=== PATIENT | female | born 2000 | race Caucasian/White ===

== ENCOUNTER 2024-02-24 09:33 | Outpatient (OUT) | payer BC, SELFPAY ==
--- NOTE | 2024-02-24 | US_ITS ---
[place] [id number] Patient Name: EMMY DALE MRN: [id number] date: 2000 Sex: F Assigned Patient Location: [facility] Current Patient Location: [facility] Accession/Order Number: [id number] Exam Date: 02/24/2024 09:38 Report Date: 02/24/2024 12:08 At the request of: ANN GONGORA Procedure: US OB transvaginal EXAMINATION: US OB transvaginal HISTORY: MISSED MENSES COMPARISON: No relevant comparison available. FINDINGS: Transvaginal images Gestational sac: 2.7 cm, 7 weeks 4 days CRL: 1.82 cm, 8 weeks 2 days Yolk sac: 3.5 mm Heart rate: 181 bpm Cervix: Closed, 4.1 cm The uterus is normal, anteverted, anteflexed The right ovary is not visualized Left ovary is normal measuring 3.1 x 1.5 x 2.8 cm Clinical age: 9 weeks 0 days Clinical [facility]: 09/28/2024 Ultrasound age: 8 weeks 2 days Ultrasound [facility]: 10/03/2024 US/US OB transvaginal IMPRESSION: Viable mcguire intrauterine gestation measuring 8 weeks 2 days Electronically authenticated by: CHRISTINE WALKER Date: 02/24/2024 12:08
== END 2024-02-24 09:34 | disposition home or self-care (01) ==
LOC: NOMS 09:34
PROVIDERS: PCP Family Medicine; Visit Provider Obstetrics & Gynecology
DX: Z34.91 Encounter for supervision of normal pregnancy, unspecified, first trimester (principal); Z3A.08 8 weeks gestation of pregnancy; N92.6 Irregular menstruation, unspecified
CPT/HCPCS: 76817

== ENCOUNTER 2024-03-08 14:13 | Outpatient (OUT) | payer OTHER, SELFPAY ==
[2024-03-08 15:09] LABS: Basophils Absolute Auto 0.1 10^3/uL (0.0-0.1); Basophils Percent Auto 0.6 % (0.2-2.0); Eosinophils Absolute Auto 0.2 10^3/uL (0.0-0.7); Eosinophils Percent Auto 1.8 % (0.9-7.0); Hematocrit 38.4 % (36.0-48.0); Immature Granulocytes Abs Auto 0.02 10^3/uL (0.00-0.03); Immature Granulocytes Pct Auto 0.2 % (0.0-0.5); Lymphocytes Absolute Auto 2.2 10^3/uL (1.2-3.8); Mean Corpuscular HGB Conc 33.9 g/dL (29.9-35.2); Mean Corpuscular Hemoglobin 29.9 pg (26.7-34.0); Mean Corpuscular Volume 88.3 fL (81.0-99.0); Mean Platelet Volume 9.7 fL (9.5-13.5); Monocytes Absolute Auto 0.8 10^3/uL (0.3-0.8); Monocytes Percent Auto 9.3 % (1.7-12.0); Neutrophils Percent Auto 61.1 % (43.0-75.0); Platelet Count 325 10^3/uL (150-450); Red Blood Count 4.35 10^6/uL (4.20-5.40); White Blood Count 8.2 10^3/uL (4.0-11.0)
[2024-03-08 15:30] LABS: Estimated Average Glucose 91 mg/dL; Glycohemoglobin A1C 4.8 % (4.5-6.2)
[2024-03-08 16:02] LABS: BOX Test Sent Out Y
[2024-03-08 16:20] LABS: Thyroid Stimulating Hormone 3.424 uIU/mL (0.358-3.740)
[2024-03-09 05:07] LABS: HCV Ab Non Reactive (Non Reactive); HIV Ab/p24 Ag Screen Non Reactive (Non Reactive); Rubella Antibodies, IgG 1.36 index (Immune >0.99)
[2024-03-09 06:09] LABS: HBsAg Screen Negative (Negative)
[2024-03-09 13:08] LABS: Rapid Plasma Reagin, Quant Non Reactive titer (NonRea<1:1)
== END 2024-03-08 14:14 | disposition home or self-care (01) ==
PROVIDERS: PCP Family Medicine; Visit Provider Obstetrics & Gynecology
DX: E06.3 Autoimmune thyroiditis (principal); N92.6 Irregular menstruation, unspecified; Z36.0 Encounter for antenatal screening for chromosomal anomalies
CPT/HCPCS: 36415; 83036; 84443; 85025; 86592; 86762; 86803; 86850; 86900; 86901; 87086; 87340; 87389

== ENCOUNTER 2024-04-09 21:25 | Outpatient (REF) | payer OTHER, SELFPAY ==
--- OUTSIDE RECORDS SUMMARY | 2024-04-09 21:30 | XMS_ITS | CCD ---
Author Organization [facility] Care Team Providers Care Emergency Department Technician Name Role Phone Lyndon Dalal Primary Care Unavailable Juancarlos Maria Attending Unavailable Juancarlos Maria Admitting Unavailable Lyndon Dalal Unavailable Lyndon Dalal CNP Unavailable [phone] Lyndon Dalal CNP Primary Care Provider ANKIT Dalal Primary Care Provider ANKIT Dalal Attending Provider [phone] LYNDON DALAL Primary Care Unavailable MARTINA RODRIGUEZ Referring Unavailable LYNDON DALAL Primary Care Unavailable MARTINA RODRIGUEZ Referring Unavailable MARTINA RODRIGUEZ Referring Unavailable LYNDON DALAL Primary Care Unavailable MARTINA RODRIGUEZ Attending Unavailable Lyndon Dalal Attending Unavailable Lyndon Dalal Admitting Unavailable Lyndon Dalal Primary Care Unavailable Lyndon Dalal Attending Unavailable Lyndon Dalal Admitting Unavailable Lyndon Dalal Primary Care Unavailable Shashank GONGORAy R Admitting Unavailable Shashank GONGORAy R Attending Unavailable MELISSA DALALA Admitting Unavailable LYNDON DALAL Attending Unavailable Bill Kat Admitting Unavailable Bill Kat Attending Unavailable Benjamin BAKER Admitting Unavailable NONE, XXXX Referring Unavailable Benjamin BAKER Attending Unavailable Benjamin BAKER Admitting Unavailable NONE, XXXX Referring Unavailable Benjamin BAKER Attending Unavailable Benjamin BAKER Referring Unavailable Benjamin BAKER Admitting Unavailable Benjamin BAKER Attending Unavailable Benjamin BAKER Referring Unavailable Benjamin BAKER Admitting Unavailable Benjamin BAKER Consulting Unavailable Benjamin BAKER Attending Unavailable Benjamin BAKER Consulting Unavailable Benjamin BAKER Consulting Unavailable SOBEIDA THOMPSON Attending Unavailable SOBEIDA THOMPSON Admitting Unavailable SOBEIDA THOMPSON Attending Unavailable SOBEIDA THOMPSON Referring Unavailable LYNDON DALAL Admitting Unavailable LYNDON DALAL Attending Unavailable DAMI GONGORA Attending Unavailable DAMI GONGORA Attending Unavailable Allergies Allergy Classification Reported Allergen(s) Allergy Type Date of Onset Reaction(s) Facility (4 sources) Sulfonamides (Antibiotic); Translations: [SULFA (SULFONAMIDE ANTIBIOTICS)] Drug allergy (disorder) 5 [facility] Repository (2 sources) Sulfonamide Drug allergy [facility] Other (14 sources) Substance with sulfonamide structure and antibacterial mechanism of action (substance) Drug allergy 5 [facility] (1 source) Sulfonamides (Antibiotic); Translations: [sulfa drugs] Propensity to adverse reactions (disorder) [facility] Repository Medications Current Medications Medication Drug Class(es) Dates Sig (Normalized) Sig (Original) cyclobenzaprine hydrochloride 5 mg oral tablet (6 sources) Muscle Relaxant Start: 09-15-2023 take 1 tablet by mouth every twenty-four hours Cyclobenzaprine HCl 5 MG 1 tablet at bedtime as needed Orally Once a day for 14 days Aug, Active Lecithin (2 sources) Lecithin Sunflow er Lecithin, one capsule daily Active nitrofurantoin, macrocrystals 25 mg / nitrofurantoin, monohydrate 75 mg oral capsule (2 sources) Nitrofuran Antibacterial Start: 05-25-2023 take 1 capsule by mouth every twelve hours Nitrofurantoin Monohyd Macro 100 MG 1 capsule with food Orally every 12 hrs for 7 days Apr, Active predniSONE 20 mg oral tablet (4 sources) Start: 09-27-2023 take 1 tablet by mouth once daily predniSONE 20 MG 1 tab Orally Once a day for 5 days Aug, Active Vitamins (2 sources) Vitamin s OTC, daily Active tamsulosin hydrochloride 0.4 mg oral capsule (2 sources) alpha-Adrenergic Mira Start: 05-25-2023 take 1 capsule by mouth every twenty-four hours Tamsulosin HCl 0.4 MG 1 capsule Orally Once a day for 14 days Apr, Active tiZANidine 2 mg oral tablet (4 sources) Central alpha-2 Adrenergic Agonist Start: 09-27-2023 take 1 tablet by mouth twice daily as needed tiZANidine HCl 2 MG 1 tablet as needed Orally BID PRN for 14 days Aug, Active Completed/Discontinued Medications Medication Drug Class(es) Dates Sig (Normalized) Sig (Original) biotin 10 mg oral tablet (16 sources) take 1 tablet by fredi th every twenty-four hours Biotin 15918 MCG 1 tablet Orally Once a day OTC Not-Taking/PRN take 1 tablet by fredi th every twenty-four hours Biotin 68685 MCG 1 tablet Orally Once a day OTC Not-Taking take 1 tablet by mouth once [place] Biotin 11761 MCG 1 tablet Orally Once a day OTC Not-Taking BIOTIN ORAL Take by mouth q 24 HR. 0 Active take 1 tablet by mouth once [place] Biotin 98239 MCG 1 tablet Orally Once a day OTC Active Comment on above: Take by mouth q 24 H R. Calcium & Magnesium Carbonates (14 sources) Calcium & Magnes ium Carbonates 1000MG and 500MG - one capsule daily, OTC Not-Taking/PRN Calcium & Magnes ium Carbonates 1000MG and 500MG - one capsule daily, OTC Not-Taking Calcium & Magnes ium Carbonates 1000MG and 500MG - one capsule daily, OTC Active calcium carb/magnesium carb (CALCIUM & MAGNESIUM CARBONATES ORAL) (2 sources) calcium carb/mag nesium carb (CALCIUM & MAGNESIUM CARBONATES ORAL) Calcium & Magnesium Carbonates 1000MG and 500MG - one capsule daily, OTC Active 0 Active Comment on above: Calcium & Magnesium Carbonates 1000MG and 500MG - one capsule daily, OTC Active drospirenone / Ethinyl Estradiol (1 source) Progestin, Estrogen Start: 10-21-20 End: 03-08-20 23 take 1 tablet by mouth once daily Drospirenone-Ethinyl Estradiol (CATY, 28,) 3-0.03 mg per tablet Indications: Dysmenorrhea Take 1 tablet by mouth once daily. 3 Package 4 10/21/2016 03/08/2023 Discontinued Comment on above: Take 1 tablet by fredi th once daily. Iodine (14 sources) Iodine 225MCG ca psule daily, OTC Not-Taking/PRN Iodine 225MCG ca psule daily, OTC Not-Taking take 1 capsule by mouth once ana maría ly IODINE ORAL Iodine 225MCG capsule daily, OTC Active 0 Active Iodine 225MCG ca psule daily, OTC Active Comment on above: Iodine 225MCG capsul e daily, OTC Active Lactobacillus acidophilus (2 sources) Lactobacillus acidophilus (PROBIOTIC ORAL) Probiotic OTC, daily Active 0 Active Comment on above: Probiotic OTC, daily Active lactobacillus rhamnosus gg [id number] unt oral capsule (1 source) Start: 5 End: 3 take 1 capsule by mouth once daily lactobacillus rhamnosus (CULTURELLE) 10 billion cell capsule Indications: Abdominal pain Take 1 capsule by mouth once daily. 30 capsule 2 04/30/2015 03/08/2023 Discontinued Comment on above: Take 1 capsule by mo [facility] once daily. levothyroxine sodium 0.025 mg oral tablet (12 sources) l-Thyroxine Start: 3 take 1 tablet by mouth once daily levothyroxine (SYNTHROID) 25 mcg tablet Take 1 tablet by mouth once daily. 90 tablet 0 06/28/2023 Active take 1 tablet by fredi th once daily in the morning Synthroid 25 MCG 1 tablet in the morning on an empty stomach Orally Once a day for 90 days Active Comment on above: Take 1 tablet by fredi th once daily. Moringa (14 sources) Moringa 6000MG, one capsule, daily, OTC Not-Taking/PRN Moringa 6000MG, one capsule, daily, OTC Not-Taking Moringa 6000MG, one capsule, daily, OTC Active MULTI-VITAMIN ORAL (2 sources) MULTI-VITAMIN OR AL Multivitamin OTC, daily Active 0 Active Comment on above: Multivitamin OTC, da carlton Active Multivitamin preparation (12 sources) Multivitamin OTC , daily Not-Taking/PRN Multivitamin OTC , daily Not-Taking Multivitamin OTC , daily Active omeprazole 20 mg delayed release oral capsule (1 source) Proton Pump Inhibitor Start: 10-21-2016 End: 03-08-2023 take 1 capsule by mouth once daily omeprazole (PRILOSEC) 20 mg capsule Indications: Gastroesophageal reflux disease, esophagitis presence not specified Take 1 capsule by mouth once daily. 90 capsule 1 10/21/2016 03/08/2023 Discontinued Comment on above: Take 1 capsule [address] [facility] once daily. pantoprazole 20 mg delayed release oral tablet (9 sources) Proton Pump Inhibitor Start: 07-12-2023 take 1 tablet by mouth every twenty-four hours Pantoprazole Sodium 20 MG 1 tablet Orally Once a day for 30 days Jul, Not-Taking/PRN vit no.124/iron/folic ( VITAMIN ORAL) (2 sources) vit no.124/iron/folic ( VITAMIN ORAL) Vitamins OTC, daily Active 0 Active Comment on above: Vitamins OT C, daily Active Probiotic (14 sources) Probiotic OTC, d aily Not-Taking/PRN Probiotic OTC, d aily Not-Taking Probiotic OTC, d aily Active Thyroid (12 sources) Thyroid SOLARAY Bladderwrack Seaweed, Healthy Thyroid Balance and Weight Management Support daily Not-Taking/PRN Thyroid SOLARAY Bladderwrack Seaweed, Healthy Thyroid Balance and Weight Management Support daily Not-Taking Thyroid SOLARAY Bladderwrack Seaweed, Healthy Thyroid Balance and Weight Management Support daily Active THYROID ORAL (1 source) THYROID ORAL Thy roid SOLARAY Bladderwrack Seaweed, Healthy Thyroid Balance and Weight Management Support daily Active 0 Active Comment on above: Thyroid SOLARAY Blad derwrack Seaweed, Healthy Thyroid Balance and Weight Management Support daily Active Problems Active Problems Problem Classification Problem Date Documented Date Episodic/Chronic Abdominal pain (14 sources) Pain in pelvis; Translations: [Pelvic and perineal pain] Episodic Asthma (20 sources) Exercise-induced asthma; Translations: [Exercise induced bronchospasm] Chronic Cardiac dysrhythmias (14 sources) Tachycardia; Translations: [Tachycardia, unspecified] Episodic Esophageal disorders (11 sources) Gastroesophageal reflux disease; Translations: [Gastro-esophageal reflux disease without esophagitis] Onset: 09-27-2014 09-27-2014 Chronic Gastritis and duodenitis (1 source) Acute gastritis with bleeding Episodic Genitourinary symptoms and ill-defined conditions (15 sources) Dysuria; Translations: [Dysuria] Episodic Headache; including migraine (2 sources) Episodic tension-type headache; Translations: [Episodic tension-type headache, not intractable] Onset: 08-07-2015 08-07-2015 Chronic Malaise and fatigue (15 sources) Fatigue; Translations: [Chronic fatigue, unspecified] Chronic Malaise and fatigue (14 sources) Fatigue; Translations: [Other fatigue] Episodic Menstrual disorders (2 sources) Dysmenorrhea; Translations: [Dysmenorrhea, unspecified] Onset: 09-27-2014 09-27-2014 Chronic Nonspecific chest pain (14 sources) Chest pain; Translations: [Chest pain, unspecified] Episodic Other bone disease and musculoskeletal deformities (5 sources) Idiopathic scoliosis AND/OR kyphoscoliosis; Translations: [Other idiopathic scoliosis, thoracic region] Chronic Other circulatory disease (11 sources) Low blood pressure; Translations: [Hypotension, unspecified] Episodic Other complications of ; puerperium affecting management of mother (14 sources) Obstetric spinal and epidural anesthesia-induced headache; Translations: [Spinal and epidural anesthesia-induced headache during the puerperium] Episodic Other complications of ; puerperium affecting management of mother (1 source) Spinal and epidural anesthesia-induced headache during the puerperium Episodic Other inflammatory condition of skin (14 sources) Pityriasis rosea; Translations: [Pityriasis rosea] Chronic Other non-traumatic joint disorders (1 source) Pain in unspecified hip Episodic Other nutritional; endocrine; and metabolic disorders (1 source) Abnormal weight loss Episodic Other and delivery including normal (1 source) Encounter for care and examination of lactating mother Episodic Spondylosis; intervertebral disc disorders; other back problems (1 source) Pain in thoracic spine Episodic Sprains and strains (1 source) Strain of muscle, fascia and tendon at neck level, initial encounter Episodic Thyroid disorders (20 sources) Goiter; Translations: [Nontoxic goiter, unspecified] Chronic Unclassified (1 source) Pain in right shoulder; Translations: [Pain in right shoulder] Onset: 10-25-2023 Past or Other Problems Problem Classification Problem Date Documented Date Episodic/Chronic Blindness and vision defects (2 sources) Wears glasses; Translations: [Presence of spectacles and contact lenses] Onset: 08-28-2014 08-28-2014 Episodic Conditions associated with dizziness or vertigo (15 sources) Dizziness and giddiness; Translations: [Dizziness] Onset: 02-21-2023 Episodic Contraceptive and procreative management (2 sources) Patient encounter status; Translations: [Encounter for initial prescription of contraceptive pills] Onset: 09-27-2014 09-27-2014 Episodic Headache; including migraine (2 sources) Headache; Translations: [Headache] Onset: 09-27-2014 09-27-2014 Episodic Residual codes; unclassified (2 sources) High risk sexual behavior; Translations: [High risk heterosexual behavior] Onset: 09-27-2014 09-27-2014 Episodic Syncope (2 sources) Near syncope; Translations: [Syncope and collapse] Onset: 09-27-2014 09-27-2014 Episodic Viral infection (3 sources) Viral infection, unspecified; Translations: [Verruca vulgaris] Onset: 09-27-2014 Episodic Results Test Name Value Interpretation Reference Range Facility Consent for Treatmenton Consent for Treatment [id number] F Normal [facility] Physician Orderon 04-04-2024 Physician Order [id number]#[id number] FF Normal [facility] TSHon 04-04-2024 TSH Qn 2.73 m[IU]/L Normal 0.34-5.60 [facility] Comment on above: Performed By: #### 2 [id number] #### [facility] [address] [place] [address] XR Spine Cervical 4 or 5 Vie wson 09-16-2023 XR Spine Cervical 4 or 5 Views Exam Date/Time: 09/15/2023 14:47 EST Reason for Exam: [id number] Report IMPRESSION: NEGATIVE CERVICAL SPINE. CLINICAL HISTORY: S16.1XXA. Neck and back pain. COMMENT: 5 views. The cervical spine appears normal without evidence of fracture or subluxation. Ordering Provider: LYNDON DALAL FINAL REPORT Dictated: 09/16/2023 8:02 am Maximo Kurtz M.D. Signed (Electronic Signature): 09/16/2023 8:02 am Signed by: Maximo Kurtz M.D. Transcribed by: MORENO Technologist: JOANNE Technical Comments Radiation Dose: Ka,r in mGy = . DAP = . Normal [facility] XR Spine Thoracic 3 Viewson 09-16-2023 XR Spine Thoracic 3 Views Exam Date/Time: 09/15/2023 14:47 EST Reason for Exam: M54.6 Report IMPRESSION: MILD SCOLIOTIC CURVATURES. CLINICAL HISTORY: M54.6. Neck and back pain. COMMENT: 3 views. There are mild scoliotic curvatures of the thoracic spine, convex to the left superiorly, convex to the right in the midportion, and convex to the left in the lower portion. The thoracic spine is otherwise normal in appearance. The vertebral bodies are maintained in height. The pedicles are intact. No fracture is noted.. Ordering Provider: LYNDON DALAL FINAL REPORT Dictated: 09/16/2023 8:01 am Maximo Kurtz M.D. Signed (Electronic Signature): 09/16/2023 8:01 am Signed by: Maximo Kurtz M.D. Transcribed by: MORENO Technologist: JOANNE Technical Comments Radiation Dose: Ka,r in mGy = . DAP = . Normal [facility] Physician Orderon 09-15-2023 Physician Order [id number] IFF Normal [facility] T4 Free SerPl-mCncon 023 Free T4 [Mass/Vol] 1.2 ng/dL Normal 0.9-1.7 [facility] Comment on above: Order Comment: Rozina florez Type: BLOOD SPECIMEN Ordering Facility: [facility] Address: [address] [place] [address] Performed By: #### 3 024-7, 3016-3 #### [facility] CLIA [id number] [address] [place] [address] [place] TSH SerPl-aCncon 08-18-2023 TSH Qn 2.280 m[IU]/L Normal 0.270-4.200 [facility] Comment on above: Order Comment: Rozina florez Type: BLOOD SPECIMEN Ordering Facility: [facility] Address: [address] [place] [address] Result Comment: If t he patient is , TSH reference range varies by gestational period: First Trimester (weeks 9-12): 0.180-2.990 mIU/L Second Trimester: 0.110-3.980 mIU/L Third Trimester: 0.480-4.710 mIU/L Noe Ramon et al. A Practical Approach for the Verifications and Determination of Site- and Trimester-Specific Reference Intervals for Thyroid Function tests in . Thyroid, 2019:29:3:412-420. Gregor Banegas, et al. 2017 Guidelines of the [place] [employer] for the Diagnosis and Management of Thyroid Disease during and the . Thyroid, 2017:27:3:315-389. Performed By: #### 3 024-7, 3016-3 #### [facility] CLIA [id number] [address] [place] [address] [place] Consent for Treatmenton Consent for Treatment [id number]: 127 [facility] US Renalon 07-08-2023 US Renal Exam Date/Time: 07/08/2023 09:48 EDT Reason for Exam: Kidney Stones;Other (please specify) Report IMPRESSION: NEGATIVE ULTRASOUND OF THE KIDNEYS. CLINICAL HISTORY: Kidney Stones. COMPARISON: 07/30/2021. COMMENT: Sonogram of both kidneys was done. The right kidney measures approximately 10.1 cm in length, with renal cortical thickness of approximately 1.2 cm. The left kidney measures approximately 10.2 cm in length, with renal cortical thickness of approximately 2.1 cm. Both kidneys have a normal sonographic appearance. No renal masses nor cysts are seen. There is no hydronephrosis. There is symmetrical color flow into the both kidneys. Ordering Provider: , FINAL REPORT Dictated: 07/08/2023 3:45 pm Héctor Mendoza M.D. Signed (Electronic Signature): 07/08/2023 3:45 pm Signed by: Héctor Mendoza M.D. Transcribed by: MORENO Technologist: EMILY Chung [facility] XR Abdomen 1 Viewon 07-08-20 23 XR Abdomen 1 View Exam Date/Time: 07/08/2023 09:37 EDT Reason for Exam: N20.0;Kidney stone Report IMPRESSION: NO OBVIOUS RENAL OR URETERAL CALCULUS. CLINICAL HISTORY: Kidney stone, N20.0 COMPARISON: 05/22/2016. FINDINGS: AP supine abdomen shows no obvious calcific density in either kidney or along the course of both ureters. Gas pattern of bowel is unremarkable. Both kidneys are partially obscured by overlying bowel gas. Ordering Provider: , FINAL REPORT Dictated: 07/08/2023 3:35 pm Héctor Mendoza M.D. Signed (Electronic Signature): 07/08/2023 3:35 pm Signed by: Héctor Mendoza M.D. Transcribed by: MORENO Technologist: JOANNE Technical Comments Radiation Dose: Ka,r in mGy = . DAP = . Normal [facility] Ambulatory Visit Summaryon 0 06-21-2023 Ambulatory Visit Summary EMMY DALE :2000 Visit Date:06/21/2023 Ambulatory Visit Instructions Your Diagnosis Urinary crystals Recurrent UTI Urethral stricture Gross hematuria Tests Performed Urnls Dip Stick Auto w/o Microscopy POC 06177 Your Care Team Attending Physician - SOBEIDA THOMPSON PA-C Primary Care Physician - LYNDON DALAL CNP This Is Your Medications List Contact prescribing physician if questions or concerns busPIRone (busPIRone 10 mg Tab) levothyroxine (Synthroid 25 mcg(0.025 mg) Tab) Procedures Performed Cystourethroscopy with dilation of urethral stricture (07/2021), Extraction of wisdom tooth (2015), Colonoscopy (2012), EGD (esophagogastroduodenosc opy) gastric outlet reduction (2012). Discharge Vitals Heart Rate (Peripheral) 74 Blood Pressure 116/82 Height 160 cm Height 63 in Weight 78 kg Weight 171.6 lb BMI 30.47 What to do next You Need to Schedule the Following Appointments Follow Up with SOBEIDA THOMPSON PA-C, URL When: Comments: will call pt. Where: [address] [place] [address] You Need to Complete the Following US Renal, *Est. 06/21/23 due within 1 months, Routine, Order for future visit, Transport Mode: Ambulatory, Reason: Other (please specify), Reason: Kidney Stones, No, Kidney stones, pp_set_radiology_subspec ialtlisa, [facility] [place] XR Abdomen 1 View, *Est. 06/21/23 due within 1 months, Routine, Order for future visit, Transport Mode: Ambulatory, Reason: Kidney stone, No, Kidney stones, pp_set_radiology_subspec ialty, [facility] [place] Medications What How Much When Instructions Unchanged busPIRone (busPIRone 10 mg Tab) 2 times a day Contact prescribing physician if questions or concerns Unchanged levothyroxine (Synthroid 25 mcg(0.025 mg) Tab) Every day Contact prescribing physician if questions or concerns Test Results Urnls Dip Stick Auto w/o Microscopy POC 99244 (06/21/2023) Bilirubin Urine Dipstick - Negative Blood Urine Dipstick - Negative Glucose Urine Dipstick - Negative Ketones Urine Dipstick - Negative Leukocytes Urine Dipstick - Negative Nitrite Urine Dipstick - Negative Protein Urine Dipstick - Negative Specific [place] Urine Dipstick - 1.010 Urine Appearance Urine Dipstick - Clear Urine Color Urine Dipstick - Yellow Urobilinogen Urine Dipstick - Normal 0.2-1 EU/dl pH Urine Dipstick - 6 Allergies sulfa drugs (Rash) Problems Ongoing - Any problem that you are currently receiving treatment for. Dysuria Gross hematuria Vikki's disease Kidney stones Labyrinthine dysfunction Pityriasis rosea Recurrent UTI Tachycardia Thyroid nodule Thyromegaly Urethral stricture Urinary crystals Historical - Any problem that you are no longer receiving treatment for. Bilateral carpal tunnel syndrome GERD - Gastro-esophageal reflux disease H/O: migraine Education Materials Dietary Guidelines to Help Prevent Kidney Stones Kidney stones are deposits of minerals and salts that form inside your kidneys. Your risk of developing kidney stones may be greater depending on your diet, your lifestyle, the medicines you take, and whether you have certain medical conditions. Most people can lower their chances of developing kidney stones by following the instructions below. Your dietitian may give you more specific instructions depending on your overall health and the type of kidney stones you tend to develop. What are tips for following this plan? Reading food labels ? Choose foods with no salt added or low-salt labels. Limit your salt (sodium) intake to less than 1,500 mg a day. ? Choose foods with calcium for each meal and snack. Try to eat about 300 mg of calcium at each meal. Foods that contain 200?500 mg of calcium a serving include: ? 8 oz (237 mL) of milk, eemjvxh-szkrgntttyfz-akz ry milk, and calcium-fortifiedfruit juice. Calcium-fortified means that calcium has been added to these drinks. ? 8 oz (237 mL) of kefir, yogurt, and soy yogurt. ? 4 oz (114 g) of tofu. ? 1 oz (28 g) of cheese. ? 1 cup (150 g) of dried figs. ? 1 cup (91 g) of cooked broccoli. ? One 3 oz (85 g) can of sardines or mackerel. Most people need 1,000?1,500 mg of calcium a day. Talk to your dietitian about how much calcium is recommended for you. Shopping ? Buy plenty of fresh fruits and vegetables. Most people do not need to avoid fruits and vegetables, even if these foods contain nutrients that may contribute to kidney stones. ? When shopping for convenience foods, choose: ? Whole pieces of fruit. ? Pre-made salads with dressing on the side. ? Low-fat fruit and yogurt smoothies. ? Avoid buying frozen meals or prepared deli foods. These can be high in sodium. ? Look for foods with live cultures, such as yogurt and kefir. ? Choose high-fiber grains, such as whole-wheat breads, oat bran, and wheat cereals. (more content not included)... Normal [facility] Patient Educationon 06-21-20 23 Patient Education Nephrology Dietary Guidelines to Help Prevent Kidney Stones Kidney stones are deposits of minerals and salts that form inside your kidneys. Your risk of developing kidney stones may be greater depending on your diet, your lifestyle, the medicines you take, and whether you have certain medical conditions. Most people can lower their chances of developing kidney stones by following the instructions below. Your dietitian may give you more specific instructions depending on your overall health and the type of kidney stones you tend to develop. What are tips for following this plan? Reading food labels ? Choose foods with no salt added or low-salt labels. Limit your salt (sodium) intake to less than 1,500 mg a day. ? Choose foods with calcium for each meal and snack. Try to eat about 300 mg of calcium at each meal. Foods that contain 200?500 mg of calcium a serving include: ? 8 oz (237 mL) of milk, nkolevi-yjfddnyaocxp-nbh ry milk, and calcium-fortifiedfruit juice. Calcium-fortified means that calcium has been added to these drinks. ? 8 oz (237 mL) of kefir, yogurt, and soy yogurt. ? 4 oz (114 g) of tofu. ? 1 oz (28 g) of cheese. ? 1 cup (150 g) of dried figs. ? 1 cup (91 g) of cooked broccoli. ? One 3 oz (85 g) can of sardines or mackerel. Most people need 1,000?1,500 mg of calcium a day. Talk to your dietitian about how much calcium is recommended for you. Shopping ? Buy plenty of fresh fruits and vegetables. Most people do not need to avoid fruits and vegetables, even if these foods contain nutrients that may contribute to kidney stones. ? When shopping for convenience foods, choose: ? Whole pieces of fruit. ? Pre-made salads with dressing on the side. ? Low-fat fruit and yogurt smoothies. ? Avoid buying frozen meals or prepared deli foods. These can be high in sodium. ? Look for foods with live cultures, such as yogurt and kefir. ? Choose high-fiber grains, such as whole-wheat breads, oat bran, and wheat cereals. Cooking ? Do not add salt to food when cooking. Place a salt shaker on the table and allow each person to add his or her own salt to taste. ? Use vegetable protein, such as beans, textured vegetable protein (TVP), or tofu, instead of meat in pasta, casseroles, and soups. Meal planning ? Eat less salt, if told by your dietitian. To do this: ? Avoid eating processed or pre-made food. ? Avoid eating fast food. ? Eat less animal protein, including cheese, meat, poultry, or fish, if told by your dietitian. To do this: ? Limit the number of times you have meat, poultry, fish, or cheese each week. Eat a diet free of meat at least 2 days a week. ? Eat only one serving each day of meat, poultry, fish, or seafood. ? When you prepare animal protein, cut pieces into small portion sizes. For most meat and fish, one serving is about the size of the palm of your hand. ? Eat at least five servings of fresh fruits and vegetables each day. To do this: ? Keep fruits and vegetables on hand for snacks. ? Eat one piece of fruit or a handful of berries with breakfast. ? Have a salad and fruit at lunch. ? Have two kinds of vegetables at dinner. ? Limit foods that are high in a substance called oxalate. These include: ? Spinach (cooked), rhubarb, beets, sweet potatoes, and [place] chard. ? Peanuts. ? Potato chips, arabic fries, and baked potatoes with skin on. ? Nuts and nut products. ? Chocolate. ? If you regularly take a diuretic medicine, make sure to eat at least 1 or 2 servings of fruits or vegetables that are high in potassium each day. These include: ? Avocado. ? Banana. ? [place], prune, carrot, or tomato juice. ? Baked potato. ? Cabbage. ? Beans and split peas. Lifestyle ? Drink enough fluid to keep your urine pale yellow. This is the most important thing you can do. Spread your fluid intake throughout the day. ? If you drink alcohol: ? Limit how much you use to: ? 0?1 drink a day for women who are not . ? 0?2 drinks a day for men. ? Be aware of how much alcohol is in your drink. In the [place] one drink equals one 12 oz bottle of beer (355 mL), one 5 oz glass of wine (148 mL), or one 1? oz glass of hard liquor (44 mL). ? Lose weight if told by your health care provider. Work with your dietitian to find an eating plan and weight loss strategies that work best for you. General information ? Talk to your health care provider and dietitian about taking daily supplements. You may be told the following depending on your health and the cause of your kidney stones: ? Not to take supplements with vitamin C. ? To take a calcium supplement. ? To take a daily probiotic supplement. ? To take other supplements such as magnesium, fish oil, or vitamin B6. ? Take sibv-xmt-bgeiigi and prescription medicines only as told by your health care provider. These include supplements. What foods should I limit? Limit your in (more content not included)... Normal [facility] Urology Office/Clinic Noteon 06-21-2023 Urology Office/Clinic Note Chief Complaint follow up HPI Staff Pt is here today F/U due to Urethral stricture S/P Cysto/UD 08/06/21, Reoccurring UTI, Gross Hementaria, Renal US 07/30/21 Last visit was 09/16/21 Found out she had kidney stones with Dr. Cloud (PCP), crystals was also found in her U/A last month she doesn't know if she passed it Macrobid was prescribed from PCP and Flomax for UTI for 14 days 3 wks ago. This did work well Dysuria: _denies Incomplete bladder emptying: denies Hematuria: denies, blood on U/A microscopic ( 3 wks ago) Frequency: _5-6 times a day Urgency: denies Nocturia: once sometimes Stream: denies hesitation, normal stream Leaking: _denies Post void dripping: denies Wearing pads/ Depends: denies Urge incontinence: denies Stress incontinence: denies Incontinence without Sensory Awareness: denies Abdominal pain: denies Flank pain: denies Sexual complaints: denies History of Present Illness staff HPI reviewed and agree. Review of Systems PHQ Score Initial Depression Screen Score: 0 no fever, chills, malaise, myalgia. no rash/lesions. no chest pain, palpitations, or SOB. no abdominal pain, nausea, vomiting. no unilateral calf swelling, redness, pain Physical Exam Vitals & Measurements HR: 74(Peripheral) BP: 116/82 HT: 63 in HT: 160 cm WT: 78 kg WT: 171.6 lb BMI: 30.47 General: nontoxic, NAD Mouth: moist mucosa Lungs: normal respiratory effort Cardio: regular rate, good distal perfusion Abdomen: nondistended, no suprapubic distention or tenderness, no CVA tenderness Neurologic: Grossly normal Skin: No rashes or suspicious lesions Assessment/Plan GPC pt. Last visit was 09/16/21. 1. Urinary crystals (R82.998: Other abnormal findings in urine) UA late April showed crystals. She was having some mild L falnk pain which radiated to LLQ. PCP told her she was likely passing a stone. Started her on Flomax and Macrobid. Cx showed E Coli. Sx have since resolved. Did not see anything pass. Will send CORDELIA and KUB to [facility] to see if any persistent hydro/any remaining stones. Will call pt w/ results and f/u pending results. 2. Recurrent UTI (N39.0: Urinary tract infection, site not specified) Pt felt she had the normal UTI sxs, thought she may have just needed another UD, so she ignored it, then went to the doctors and was found to have E Coli UTI. Macrobid was prescribed from PCP and all sx resolved. Prior to that it's been at least 1 yr since last UTI. doing really well. Ordered: Body Mass Index (BMI) documented 3008F Current tobacco non-user 1036F Depression Screening Negative 3352F Influenza immunization status assessed 1030F Most recent diastolic blood pressure 80-89 mm Hg 3079F Systolic BP <130 mm Hg (Most Recent) 3074F 3. Urethral stricture (N35.919: Unspecified urethral stricture, male, unspecified site) S/p Cysto/UD 08/06/21 which has improved frequent urination and nocturia. Ordered: Body Mass Index (BMI) documented 3008F Current tobacco non-user 1036F Depression Screening Negative 3352F Influenza immunization status assessed 1030F Most recent diastolic blood pressure 80-89 mm Hg 3079F Systolic BP <130 mm Hg (Most Recent) 3074F Urnls Dip Stick Auto w/o Microscopy POC 81422 4. Gross hematuria (R31.0: Gross hematuria) CORDELIA 07/30/21 - normal bilat. kidneys. No renal mass nor cyst is noted. There is no hydronephrosis. Cysto 08/06/21 - negative for stones or tumors. UA today is negative for blood and infection. Pt denies visible blood in urine, blood on UA microscopic ( 3 wks ago). Ordered: Body Mass Index (BMI) documented 3008F Current tobacco non-user 1036F Depression Screening Negative 3352F Influenza immunization status assessed 1030F Most recent diastolic blood pressure 80-89 mm Hg 3079F Systolic BP <130 mm Hg (Most Recent) 3074F Orders: US Renal XR Abdomen 1 View All questions/concerns were discussed. Pt to call the office if she encounters any issues prior. Pt acknowledges understanding. Follow-up With When Contact Information SOBEIDA THOMPSON PA-C, URL [address] [place] [address] Additional Instructions: will call pt. Patient Education Dietary Guidelines to Help Prevent Kidney Stones I, Laura Lou, personally scribed for Sobeida Thompson PA-C on 06/21/2023 12:25:11. . Documentation recorded by the scribsally Lou accurately reflects the services(s) I performed and decisions made by me. Authenticated by Sobeida Thompson PA-C on 06/21/2023 12:44:22. Problem List/Past Medical History Ongoing Dysuria Gross hematuria Vikki's disease Kidney stones Labyrinthine dysfunction Pityriasis rosea Recurrent UTI Tachycardia Thyroid nodule Thyromegaly Urethral stricture Historical Bilateral carpal tunnel syndrome GERD - Gastro-esophageal reflux disease H/O: migraine Procedure/Surgical History Cystour (more content not included)... Normal [facility] Comment on above: Result Comment: Elec tronically Signed By: SOBEIDA THOMPSON PA-C\.br\Date and Time Signed: 06/21/23 12:44 EDT\.br\Electronically Co-Signed By: Laura Lou\.br\Date and Time Co-Signed: 06/21/23 12:25 EDT PAP [id number] 06-07-2023 Cytology report Cyto stain Doc (Cvx/Vag) Note Invalid Interpretation Code [facility] Comment on above: Result Comment: TEST S RESULT FLAG UNITS REF RANGE LAB Clinician Provided Cytology Information Source.............Endocervix No. of containers..01 ThinPrep Vial DIAGNOSIS: 01 NEGATIVE FOR INTRAEPITHELIAL LESION OR MALIGNANCY. Specimen adequacy: 01 Satisfactory for evaluation. Endocervical and/or squamous metaplastic cells (endocervical component) are present. Performed by: 01 Lali Bolaños, Electrical Equipment Technician (ASCP) . 01 Note: Note 01 The Pap smear is a screening test designed to aid in the detection of premalignant and malignant conditions of the uterine cervix. It is not a diagnostic procedure and should not be used as the sole means of detecting cervical cancer. Both false-positive and false-negative reports do occur. Test Methodology: Note 01 This liquid based ThinPrep(R) pap test was screened with the use of an image guided system. . 01 The HPV DNA reflex criteria were not met with this specimen result therefore, no HPV testing was performed. FLAG LEGEND: L-Low Normal,H-High Normal,LL-Alert Low,HH-Alert High <-Panic Low,>-Panic High,A-Abnormal,AA-Critical Abnormal Performed at: 01 [facility] [address] [address] Lisa Ellington MD, Performed at: [facility] [address] [id number] MD Chandana Gonzalez Performed By: #### 3 [id number] ####[facility] [address] [place] [address] Consent for Treatmenton Consent for Treatment [id number]: 127 Normal [facility] Heart and Vascular Office/Cl inic Noteon 06-01-2023 Heart and Vascular Office/Clinic Note History of Present Illness Patient is a very pleasant 22-year-old female with a history of Vikki's thyroiditis, recent history of hypotension and dizziness, referred to our office for further evaluation. Patient states that around 9 months ago she developed COVID infection ever since then she has had episodes of lightheadedness, dizziness and hypertension in the late afternoon. The patient drinks about 1 cup of coffee per day and also has energy drinks in the afternoon at which time her blood pressure sinks down into the high 90s to low 100s. Patient also complains of some mild positional lightheadedness particular when standing for a while but has had no presyncope or syncopal episodes. She denies any chest pain, angina, or palpitations. She is on no medications. When she was in her early teens the patient had episodes of positional lightheadedness and went to see a neurologist and was told she may have vasovagal hypotension. An interesting note is the patient's father at age 50 from what it sounds like a viral cardiomyopathy. Previous pediatric echo dated 06/11/2014 is as below: (06/11/2014 15:23 EDT EC Pediatric Echo Transthoracic Complete) FINDINGS: 1. Veins and Atria: The pulmonary and systemic veins are grossly normal. There was an intact atrial septum. 2. Atrioventricular valves: The tricuspid and mitral valve are both normal with no stenosis or insufficiency. 3. Ventricles: The right and left ventricle were of normal size, wall thickness, and systolic performance. There was an intact ventricular septum. 4. Semilunar valves: The aortic and pulmonary valve were normal with no stenosis and just trace pulmonary insufficiency. 5. Great arteries: The main and branch pulmonary arteries were normal. There was no obvious coarctation or patent ductus arteriosus. 6. Pericardium: There was no pericardial effusion. [1] As part of her cardiac evaluation she underwent a 2D echo with Doppler on 04/15/2023 with the following results: (04/15/2023 09:42 EDT Echo Transthoracic Complete) Interpretation Summary Ejection Fraction = 60-65%. The left ventricular wall motion is normal. Normal diastolic function. There is trace tricuspid regurgitation. Right ventricular systolic pressure is 24 mmHg. In comparison echo report dated 06/11/2014, no appreciable changes noted. [1] In addition she underwent a treadmill EKG on 04/15/2023 with the following results: (04/15/2023 08:43 EDT ECG Stress Exercise) CONCLUSIONS: Normal, adequate, treadmill electrocardiogram. Negative for ischemia by electrocardiographic criteria. No anginal symptoms noted. No arrhythmias noted. Appropriate blood pressure response to exercise. Average exercise capacity for age. Patient tolerated procedure well. No complications. [2] Patient is now here in follow-up to go over her testing. Testing results given to the patient. Patient states that she has had no chest pain or anginal symptoms, no palpitations, no presyncope or syncope but she does complain of dizziness only when she lays down to watch TV. She describes this as developing tunnel vision, and occasionally has low blood pressure in the 90s to low 100s. She denies any positional symptoms however. She denies any shortness of breath. She was recently placed on Synthroid about a month ago. She denies any positional dizziness. We will prescribe the patient a event monitor but unfortunately she was called by the burner operator and told that it was not working. Her thyroid medicine has been adjusted and she has had no further palpitations. In our office today her blood pressure is 118/68 pulse of 91 and regular. Physical exam is as below. EKG dated 03/25/2023 shows normal sinus rhythm, normal axis, normal intervals, no evidence of previous myocardial infarction. Incomplete right bundle branch block. Review of Systems Constitutional: no fever, no chills, no weakness, no fatigue Respiratory: no shortness of breath, no cough, no orthopnea, no wheezing Cardiovascular: no chest pain, no palpitations, no edema Neuro: no dizziness no light headed no syncope Additional ROS info: Except as noted in the above Review of Systems and in the History of Present Illness all other systems have been reviewed and are negative or noncontributory. Physical Exam General: alert, no acute distress Neck: Supple, noJVD nocarotid bruit Cardiovascular: regular rate and rhythm, no murmur normal peripheral perfusion Respiratory: Lungs CTA, respirations non labored Extremities: no edema Neurological: oriented x 4, LOC appropriate for age, sensation equal & normal bilaterally, speech normal Skin: Warm, dry, intact- no rash or concerning lesions Assessment/Plan 1. Palpitations: The patient stress test and echocardiogram results were given to the patient. Unfortunately her event monitor stopped working in the middle of her monitoring period, and she does not wish to pursue another one as her palpitations have completely resolved with adjustment of her Sy (more content not included)... Normal [facility] Comment on above: Result Comment: Elec tronically Signed By: SAMUEL VELAZQUEZ, Benjamin Le.br\Date and Time Signed: 06/01/23 14:25 EDT PAP [id number] 06-01-2023 Collection Technique BRUSH-SPATULA Normal [facility] Comment on above: Performed By: #### 3 [id number] ####[facility] [address] [place] [address] Gynecological Body Site ENDOCERVIX Normal [facility] Comment on above: Performed By: #### 3 [id number] ####[facility] [address] [place] [address] Physician Orderon 06-01-2023 Physician Order [id number]#[id number] :127 [facility] Physician Order [id number]#1.00CD: 127 [facility] C Urineon 05-27-2023 Bacteria identified Cx Nom (U) Microbiology PROCEDURE: Urine Culture [R1] SOURCE: U CleanCatch BODY SITE: COLLECTED DATE/TIME: 05/25/2023 15:25 EDT RECEIVED DATE/TIME: 05/25/2023 16:39 EDT START DATE/TIME: 05/25/2023 16:39 EDT FREE TEXT SOURCE: LYNDON DALAL CNP, CNP, LYNDON FINAL REPORTS Final Report [] Verified Date/Time: 05/27/2023 08:35 EDT >100,000 cfu/ml Escherichia coli SUSCEPTIBILITY RESULTS ___ LEGEND: S=Susceptible, N/R=Not Reported, Blank=Data not available, or drug not advisable or tested, I=Intermediate, ESBL=Extended spectrum beta-lactamase, R=Resistant, TFG=Thymidine-dependent strain, JAMESON=Beta-lactamase positive, ABRAN=mcg/m;(mg/L), S*=Predicted susceptible interp, R*=Predicted resistant interp EC Antibiotic ABRAN Dilutn ABRAN Interp Amikacin <=16 S Ampicillin >16 R Ampicillin/ >16/8 R Sulbactam Aztreonam <=4 S Cefazolin 16 I Cefepime <=2 S Cefoxitin <=8 S Ceftazidime <=1 S Ceftazidime/ <=8 S Avibactam Ceftriaxone <=1 S Ciprofloxacin <=1 S Ertapenem <=0.5 S Gentamicin >8 R Levofloxacin <=2 S Meropenem <=1 S Nitrofurantoin <=32 S Piperacillin/ <=16 S Tazobactam Tetracycline >8 R Tigecycline <=2 S Tobramycin >8 R Trimethoprim/ >2/38 R Sulfa Performing Locations R1: This test was performed at: [facility], [address] [place] [address], [address] , , Normal [facility] Comment on above: Performed By: #### 2 [id number] ####[place] [address] [place] [address] T4 Free SerPl-mCncon 27- 023 Free T4 [Mass/Vol] 1.2 ng/dL Normal 0.9-1.7 [facility] Comment on above: Order Comment: Speci men Type: BLOOD SPECIMEN Ordering Facility: [facility] Address: [address] [place] [id number] Performed By: #### 3 024-7, 3016-3 #### [facility] CLIA [id number] [address] [place] [address] [place] TSH SerPl-aCncon 05-26-2023 TSH Qn 2.260 m[IU]/L Normal 0.270-4.200 [facility] Comment on above: Order Comment: Speci men Type: BLOOD SPECIMEN Ordering Facility: [facility] Address: [address] [id number] Result Comment: If t he patient is , TSH reference range varies by gestational period: First Trimester (weeks 9-12): 0.180-2.990 mIU/L Second Trimester: 0.110-3.980 mIU/L Third Trimester: 0.480-4.710 mIU/L Noe Ramon et al. A Practical Approach for the Verifications and Determination of Site- and Trimester-Specific Reference Intervals for Thyroid Function tests in . Thyroid, 2019:29:3:412-420. Gregor Banegas, et al. 2017 Guidelines of the [place] Thyroid Association for the Diagnosis and Management of Thyroid Disease during and the . Thyroid, 2017:27:3:315-389. Performed By: #### 3 024-7, 3016-3 #### [facility] CLIA [id number] [address] [place] [address] [place] Consent for Treatmenton 05-01 Consent for Treatment [id number]: 127 Normal [facility] Physician Orderon 05-25-2023 Physician Order [id number]#1.00CD:12 7 Normal [facility] Urinalysison 05-25-2023 Bacteria LM Ql (Urine sed) 2+ /HPF Abnormal Trace [facility] Comment on above: Performed By: #### 1 [id number] ####[facility] [address] [place] [address] Bilirubin Ql (U) Negative Normal Negative [facility] Comment on above: Performed By: #### 1 [id number] ####[facility] [address] [place] [address] Clarity (U) SL CLOUDY Abnormal Clear [facility] Comment on above: Performed By: #### 1 [id number] ####[facility] [address] [place] [address] Color (U) YELLOW Normal Yellow [facility] Comment on above: Performed By: #### 1 [id number] ####[facility] [address] [place] [address] Crystals LM Ql (Urine sed) Present Normal [facility] Comment on above: Performed By: #### 1 [id number] ####[facility] [address] [place] [address] Epithelial cells.squamous LM.HPF (Urine sed) [#/Area] 0-2 Normal 0-2 [facility] Comment on above: Performed By: #### 1 [id number] ####[facility] [address] [place] [address] Glucose Test strip (U) [Mass/Vol] Negative Normal Negative [facility] Comment on above: Performed By: #### 1 [id number] ####[facility] [address] [place] [address] Hemoglobin Ql (U) 2+ Abnormal Negative [facility] Comment on above: Performed By: #### 1 [id number] ####[facility] [address] [place] [address] Ketones (U) [Mass/Vol] Negative Normal Negative [facility] Comment on above: Performed By: #### 1 [id number] ####[facility] [address] [place] [address] Jal.plasma/Li thium.RBC (Bld) [Mass ratio] 0-3 Normal 0-3 [facility] Comment on above: Performed By: #### 1 [id number] ####[facility] [address] [place] [address] Mucus Ql (Urine sed) TRACE Normal [facility] Comment on above: Performed By: #### 1 [id number] ####[address] [place] [place] [address] Nitrite Ql (U) Positive Abnormal Negative [facility] Comment on above: Performed By: #### 1 [id number] ####[address] [address] pH (U) 6.0 [pH] Invalid Interpretation Code 5.0-9.0 [facility] Comment on above: Performed By: #### 1 [id number] ####[address] [address] Protein (U) [Mass/Vol] Negative Normal Negative [facility] Comment on above: Performed By: #### 1 [id number] ####[address] [address] Specific gravity (U) [Rel density] 1.010 Invalid Interpretation Code 1.005-1.030 [facility] Comment on above: Performed By: #### 1 [id number] ####[address] [address] Type of Urine collection method Clean Catch Normal [facility] Comment on above: Performed By: #### 1 [id number] ####[address] [address] Urobilinogen Qn (U) 0.2 {Catarino'U}/dL Normal 0.0-1.0 [facility] Comment on above: Performed By: #### 1 [id number] ####[address] [address] WBC Auto Ql (U) 1+ Abnormal Negative [facility] Comment on above: Performed By: #### 1 [id number] ####[address] [address] WBC LM.HPF (Urine sed) [#/Area] 26-30 Abnormal 0-5 [facility] Comment on above: Performed By: #### 1 [id number] ####[address] [address] Consent for Treatmenton 04-30 Consent for Treatment [id number]: 127 Normal [facility] Consent for Treatmenton Consent for Treatment [id number]: 127 Normal [facility] Heart and Vascular Office/Cl inic Noteon 05-05-2023 Heart and Vascular Office/Clinic Note Patient is a very pleasant 22-year-old female with a history of Vikki's thyroiditis, recent history of hypotension and dizziness, referred to our office for further evaluation. Patient states that around 9 months ago she developed COVID infection ever since then she has had episodes of lightheadedness, dizziness and hypertension in the late afternoon. The patient drinks about 1 cup of coffee per day and also has energy drinks in the afternoon at which time her blood pressure sinks down into the high 90s to low 100s. Patient also complains of some mild positional lightheadedness particular when standing for a while but has had no presyncope or syncopal episodes. She denies any chest pain, angina, or palpitations. She is on no medications. When she was in her early teens the patient had episodes of positional lightheadedness and went to see a neurologist and was told she may have vasovagal hypotension. An interesting note is the patient's father at age 50 from what it sounds like a viral cardiomyopathy. Previous pediatric echo dated 06/11/2014 is as below: (06/11/2014 15:23 EDT EC Pediatric Echo Transthoracic Complete) FINDINGS: 1. Veins and Atria: The pulmonary and systemic veins are grossly normal. There was an intact atrial septum. 2. Atrioventricular valves: The tricuspid and mitral valve are both normal with no stenosis or insufficiency. 3. Ventricles: The right and left ventricle were of normal size, wall thickness, and systolic performance. There was an intact ventricular septum. 4. Semilunar valves: The aortic and pulmonary valve were normal with no stenosis and just trace pulmonary insufficiency. 5. Great arteries: The main and branch pulmonary arteries were normal. There was no obvious coarctation or patent ductus arteriosus. 6. Pericardium: There was no pericardial effusion. [1] As part of her cardiac evaluation she underwent a 2D echo with Doppler on 04/15/2023 with the following results: (04/15/2023 09:42 EDT Echo Transthoracic Complete) Interpretation Summary Ejection Fraction = 60-65%. The left ventricular wall motion is normal. Normal diastolic function. There is trace tricuspid regurgitation. Right ventricular systolic pressure is 24 mmHg. In comparison echo report dated 06/11/2014, no appreciable changes noted. [1] In addition she underwent a treadmill EKG on 04/15/2023 with the following results: (04/15/2023 08:43 EDT ECG Stress Exercise) CONCLUSIONS: Normal, adequate, treadmill electrocardiogram. Negative for ischemia by electrocardiographic criteria. No anginal symptoms noted. No arrhythmias noted. Appropriate blood pressure response to exercise. Average exercise capacity for age. Patient tolerated procedure well. No complications. [2] Patient is now here in follow-up to go over her testing. Testing results given to the patient. Patient states that she has had no chest pain or anginal symptoms, no palpitations, no presyncope or syncope but she does complain of dizziness only when she lays down to watch TV. She describes this as developing tunnel vision, and occasionally has low blood pressure in the 90s to low 100s. She denies any positional symptoms however. She denies any shortness of breath. She was recently placed on Synthroid about a month ago. She denies any positional dizziness In our office today her blood pressure is 123/82 pulse of 86 and regular. Physical exam is as below. EKG dated 03/25/2023 shows normal sinus rhythm, normal axis, normal intervals, no evidence of previous myocardial infarction. Incomplete right bundle branch block. Review of Systems Constitutional: no fever, no chills, no weakness, no fatigue Respiratory: no shortness of breath, no cough, no orthopnea, no wheezing Cardiovascular: no chest pain, no palpitations, no edema Neuro: no dizziness no light headed no syncope Additional ROS info: Except as noted in the above Review of Systems and in the History of Present Illness all other systems have been reviewed and are negative or noncontributory. Physical Exam General: alert, no acute distress Neck: Supple, noJVD nocarotid bruit Cardiovascular: regular rate and rhythm, no murmur normal peripheral perfusion Respiratory: Lungs CTA, respirations non labored Extremities: no edema Neurological: oriented x 4, LOC appropriate for age, sensation equal & normal bilaterally, speech normal Skin: Warm, dry, intact- no rash or concerning lesions Assessment/Plan 1. Dizziness: Her dizziness apparently is concentrated when she lays down on a bed but does not occur with sitting in a chair or with standing up. It is difficult to pinpoint the source of her dizziness. I recommended that she undergo a 7-day event monitor to try and capture if there is any tacky or bradycardia arrhythmias that are explaining her dizziness. In the meantime I recommend that she keep yourself well-hydrated. She is currently in the process of being loaded with Synthroid. 2. Return to office with Dr. Baker in 1 month. (more content not included)... Normal [facility] Comment on above: Result Comment: Elec tronically Signed By: Samuel VELAZQUEZ, Benjamin Lopez\.br\Date and Time Signed: 05/05/23 16:11 EDT Physician Orderon 05-05-2023 Physician Order [id number] :127 Normal [facility] Stress EKG Tracingson 2022 Stress EKG Tracings [id number]#[id number]: 127 [facility] Consent for Treatmenton 03-31 Consent for Treatment [id number]#[id number]: 127 [facility] T3Free SerPl-mCncon 04-06-20 23 Free T3 [Mass/Vol] 3.3 pg/mL Normal 2.3-4.1 [facility] Comment on above: Order Comment: Speci men Type: BLOOD SPECIMEN Ordering Facility: [facility] Address: [address] [place], [place] [id number] Performed By: #### 3 051-0, 3024-7, 3016-3 #### [facility] CLIA [id number] [address] [facility] [place] [address] [place] T4 Free SerPl-mCncon 023 Free T4 [Mass/Vol] 1.4 ng/dL Normal 0.9-1.7 [facility] Comment on above: Order Comment: Speci vikki Type: BLOOD SPECIMEN Ordering Facility: [facility] Address: [address] [place] [address] Performed By: #### 3 051-0, 3024-7, 3016-3 #### [facility] CLIA [id number] [address] [place] [address] [place] THYROGLOBULIN ABon Thyroglobulin Ab Qn 1.8 [IU]/mL Normal <4.0 [facility] Comment on above: Order Comment: Rozina florez Type: BLOOD SPECIMEN Ordering Facility: [facility] Address: [address] [place] [address] Result Comment: The Thyroglobulin Antibody test was performed using the Kayent[employer] DXI paramagnetic particle chemiluminescent immunoassay method. Results obtained with different assay methods or kits cannot be used interchangeably. Performed By: #### T JASON #### [facility] CLIA [id number] [address] [place] [address] [place] THYROID PEROXIDASE ANTIBODY BLOODon 04-06-2023 [place] Qn 4572.0 [IU]/mL High <5.6 [facility] Comment on above: Order Comment: Rozina florez Type: BLOOD SPECIMEN Ordering Facility: [facility] Address: [address] [place] [address] Result Comment: Thyr oid Peroxidase Antibody test is used as an aid in diagnosis of autoimmune thyroid disease. Clinical correlation is required. Performed By: #### M ICRO #### [facility] CLIA [id number] [address] [place] [address] [place] TSH SerPl-aCncon 04-06-2023 TSH Qn 6.050 m[IU]/L High 0.270-4.200 [facility] Comment on above: Order Comment: Rozina florez Type: BLOOD SPECIMENOrdering Facility: [facility] Address: [address] [place] [address] Result Comment: If t he patient is , TSH reference range varies by gestational period: First Trimester (weeks 9-12): 0.180-2.990 mIU/L Second Trimester: 0.110-3.980 mIU/L Third Trimester: 0.480-4.710 mIU/L Noe Ramon et al. A Practical Approach for the Verifications and Determination of Site- and Trimester-Specific Reference Intervals for Thyroid Function tests in . Thyroid, 2019:29:3:412-420. Gregor Banegas, et al. 2017 Guidelines of the [place] Thyroid Association for the Diagnosis and Management of Thyroid Disease during and the . Thyroid, 2017:27:3:315-389. Performed By: #### 3 051-0, 3024-7, 3016-3 ####[facility] [id number] [address] [facility] CNOVon 03-08-2023 CNOV Office Visit (ENDOLN ) -------- EMMY DALE ([id number]) 1 F Date Time Provider Department 03/08/23 4:20 PM MARTINA RODRIGUEZ ENDOLN During your visit today, we recorded the following information about you: Blood pressure Weight 116/76 83.9 kg Martina Rodriguez MD, PhD 03/08/2023 6:07 PM Signed Ms. Dale is here today at the request of Lynodn Dalal CNP for my opinion regarding thyroid problem. My final recommendation will be communicated back to the requesting physician by way of shared medical record or letter. Reason for visit: Vikki's disease. Abnormal thyroid function test. Radiological imaging with contrast dyes within last 3 months? no HPI: Emmymaite Dale is a 22 year old female who is presenting today for evaluation and management of a Thyroid problem. She was diagnosed with Vikki's disease about 2 years ago. She was told at that time that her TPO ab is positive but her thyroid function remains normal and she does not need therapy. Lately she has been feeling tired, her muscles ache and she has had intermittent dizziness usually at night when she lay down. TSH in Oct 2022 was noted to be 0.1 and FRT4 1.3 In January 2023 TSH was 5.79 and FT4 0.71 and FT3 2.4 Thyroid US in January 2023 showed heterogenous parenchyma with no distinct nodules. Neck pressure symptoms. No H/O exposure to ionizing radiation to the head and neck. No H/O Thyroid cancer in one or more first degree relatives. No H/O Prior Thyroid surgery. No Review of Systems Constitutional: Positive for fatigue. Negative for night sweats and recent unintentional weight change. HENT: Positive for thyroid pain (lower neck). Negative for trouble swallowing and postnasal drip. Eyes: Negative for visual disturbance. Respiratory: Negative for difficulty breathing. Cardiovascular: Negative for chest pain, leg swelling and claudication. Gastrointestinal: Negative for heartburn, nausea, vomiting, abdominal pain, diarrhea and constipation. Genitourinary: Positive for irregular menses. Negative for urgency, frequent urination, slower stream, menstruating and amenorrhea. Musculoskeletal: Positive for myalgias. Negative for muscle weakness and bone pain. Skin: Positive for skin color changes. Neurological: Positive for dizziness and headaches. Negative for numbness. Endo/Heme/Allergies: Negative for polydipsia, cold intolerance when others are comfortable, heat intolerance when others are comfortable, hot flashes, flushing and changes in body hair. PAST MEDICAL HISTORY Diagnosis Date Unspecified asthma(493.90) Social History: Social History Tobacco Use Smoking status: Passive Smoke Exposure - Never Smoker FAMILY HISTORY Problem Relation Age of Onset Allergies Brother Asthma Father other (myocarditis [Other]) Father 07/06; ? viral infection; PGM [place] P[place] the time of his conception other (swelling with ? allergies [Other]) Father Heart Paternal Grandmother GI Sister esophagitis, gallbladder other (thyroid cancer [Other]) Other other (single kidney [Other]) Paternal Uncle other (rheumatoid arth [Other]) Paternal Aunt crippled since age 40 other (rheumatoid [Other]) Sister disabled. other (sciatica [Other]) Paternal Aunt 25 Arthritis Father in blood . was at [facility] when baby thought to be related to neuro problems. Family Hx: half sister had h/o thyroid CA and Vikki's Current Outpatient Medications Medication Sig BIOTIN ORAL Take by mouth q 24 HR. calcium carb/magnesium carb (CALCIUM AND MAGNESIUM CARBONATES ORAL) Calcium AND Magnesium Carbonates 1000MG and 500MG - one capsule daily, OTC Active IODINE ORAL Iodine 225MCG capsule daily, OTC Active MULTI-VITAMIN ORAL Multivitamin OTC, daily Active vit no.124/iron/folic ( VITAMIN ORAL) Vitamins OTC, daily Active Lactobacillus acidophilus (PROBIOTIC ORAL) Probiotic OTC, daily Active THYROID ORAL Thyroid SOLARAY Bladderwrack Seaweed, Healthy Thyroid Balance and Weight Management Support daily Active Drospirenone-Ethinyl Estradiol (CATY, 28,) 3-0.03 mg per tablet Take 1 tablet by mouth once daily. omeprazole (PRILOSEC) 20 mg capsule Take 1 capsule by mouth once daily. lactobacillus rhamnosus (CULTURELLE) 10 billion cell capsule Take 1 capsule by mouth once daily. No current facility-administered medications for this visit. Physical Exam BP 116/76 Wt 83.9 kg (185 lb) LMP 04/21/2015 APPEARANCE: Well appearing, alert, in no acute distress, well-hydrated, well nourished. EYES extra occular movements normal, no thyroid eye signs NECK Supple, no adenopathy. THYROID : mild diffuse enlargement. HEART RRR , no JVD appreciated RESP: normal unlabored breathing on room air NEURO Awake, alert and oriented x 3 and No involuntary motions. (more content not included)... Normal [facility] Vital Signs Date Time Vital Sign Value Performing Clinician Facility 09-15-2023 13:30-0500 Body height 162.56 cm [facility] Other [facility] Other 09-15-2023 13:30-0500 Body mass index (BMI) [Ratio] 30.21 kg/m2 [facility] Other [facility] Other 09-15-2023 13:30-0500 Body weight 79.83 kg [facility] Other [facility] Other 09-15-2023 13:30-0500 Diastolic blood pressure 68 mm[Hg] Lyndon Easterwood Other [facility] Other 09-15-2023 13:30-0500 Respiratory rate 18 /min Lyndon Easterwood Other [facility] Other 09-15-2023 13:30-0500 SaO2% (BldA) [Mass fraction] 99 % Lyndon Easterwood Other [facility] Other 09-15-2023 13:30-0500 Systolic blood pressure 118 mm[Hg] Lyndon Easterwood Other [facility] Other 07-12-2023 09:15-0400 Body height 162.56 cm Lyndon Easterwood Other [facility] Other 07-12-2023 09:15-0400 Body mass index (BMI) [Ratio] 29.86 kg/m2 Lyndon Easterwood Other [facility] Other 07-12-2023 09:15-0400 Body temperature 98.6 [degF] Lyndon Easterwood Other [facility] Other 07-12-2023 09:15-0400 Body weight 78.93 kg Lyndon Easterwood Other [facility] Other 07-12-2023 09:15-0400 Diastolic blood pressure 70 mm[Hg] Lyndon Easterwood Other [facility] Other 07-12-2023 09:15-0400 Respiratory rate 20 /min Lyndon Easterwood Other [facility] Other 07-12-2023 09:15-0400 SaO2% (BldA) [Mass fraction] 98 % Lyndon Easterwood Other [facility] Other 07-12-2023 09:15-0400 Systolic blood pressure 112 mm[Hg] Lyndon Easterwood Other [facility] Other 05-25-2023 17:30-0400 Body height 162.56 cm Lyndon Easterwood Other [facility] Other 05-25-2023 17:30-0400 Body mass index (BMI) [Ratio] 30.04 kg/m2 Lyndon Easterwood Other [facility] Other 05-25-2023 17:30-0400 Body temperature 98.2 [degF] Lyndon Easterwood Other [facility] Other 05-25-2023 17:30-0400 Body weight 79.38 kg Lyndon Easterwood Other [facility] Other 05-25-2023 17:30-0400 Diastolic blood pressure 72 mm[Hg] Lyndon Easterwood Other [facility] Other 05-25-2023 17:30-0400 Respiratory rate 20 /min Lyndon Easterwood Other [facility] Other 05-25-2023 17:30-0400 SaO2% (BldA) [Mass fraction] 99 % Lyndon Easterwood Other [facility] Other 05-25-2023 17:30-0400 Systolic blood pressure 110 mm[Hg] Lyndon Easterwood Other [facility] Other 03-08-2023 16:13-0400 Body weight 83.92 kg Martina Rodriguez MD, PhD Work Phone: [facility] 03-08-2023 16:13-0400 Diastolic blood pressure 76 mm[Hg] Martina Rodriguez MD, PhD Work Phone: [facility] 03-08-2023 16:13-0400 Systolic blood pressure 116 mm[Hg] Martina Rodriguez MD, PhD Work Phone: [facility] 08-05-2022 16:00-0400 Body height 162.56 cm Lyndon [employer] Other [facility] Other 08-05-2022 16:00-0400 Body mass index (BMI) [Ratio] 32.78 kg/m2 Lyndon SensoristerB[employer] Other [facility] Other 08-05-2022 16:00-0400 Body temperature 98 [degF] Lyndon EasterBrightc[facility] [employer] Other [facility] Other 08-05-2022 16:00-0400 Body weight 86.64 kg Lyndonjessica [facility]erB[facility] [employer] Other [facility] Other 08-05-2022 16:00-0400 Diastolic blood pressure 76 mm[Hg] Lyndon Easterwood Other [facility] Other 08-05-2022 16:00-0400 Respiratory rate 20 /min Lyndon [employer] Other [facility] Other 08-05-2022 16:00-0400 SaO2% (BldA) [Mass fraction] 99 % Lyndonjessica Fallwood Other [facility] Other 08-05-2022 16:00-0400 Systolic blood pressure 122 mm[Hg] Lyndon Fallwood Other [facility] Other Encounters Encounter Date Encounter Type Care Provider Facility Start: 04-09-2024 End: 04-09-2024 ambulatory DAMI ROLAN Not Available Start: 04-04-2024 ambulatory Dami R ROLAN Facility: [facility] Start: 03-12-2024 End: 03-12-2024 ambulatory DAMI ROLAN Not Available Start: 02-24-2024 End: 02-24-2024 ambulatory DAMI ROLAN Not Available Start: 12-04-2023 End: 12-04-2023 ambulatory Lyndon Joseerwood Other [facility] Other Start: 12-04-2023 Encounter by [employer] Lyndon Joseerwood [facility] Start: 11-05-2023 End: 11-05-2023 ambulatory Lyndon Joseerwood Other [facility] Other Start: 11-05-2023 Encounter by [employer] Lyndon Joeserwood [facility] Start: 10-25-2023 End: 10-25-2023 ambulatory Lyndon J Joseerwood Facility:[facility] Start: 10-10-2023 End: 10-10-2023 ambulatory Lyndon Easterwood Other [facility] Other Start: 10-10-2023 Telephone encounter Lyndon Joseerwood [facility] Start: 09-26-2023 End: 09-26-2023 ambulatory Lyndon Easterwood Other [facility] Other Start: 09-26-2023 Telephone encounter Lyndon Joseerwood [facility] Start: 09-18-2023 End: 09-18-2023 ambulatory Lyndon Easterwood Other [facility] Other Start: 09-18-2023 Telephone encounter Lyndon Easterwood [facility] [place] Start: 09-15-2023 End: 09-15-2023 ambulatory LYNDON JOSEERWOOD [facility] [employer] Other Start: 09-15-2023 Office outpatient visit 25 minutes Lyndon Easterwood [facility] [place] Start: 08-18-2023 End: 08-18-2023 ambulatory LYNDON JOSEERWOOD Facility:[facility] Start: 08-05-2023 Get Medical Advice Martina Rodriguez MD, PhD Work Phone: Endocrinology Comment on above: lab orders Start: 07-22-2023 End: 07-22-2023 ambulatory Lyndon Joseerwood Other [facility] Other Start: 07-22-2023 Telephone encounter Lyndon Joseerwood [facility] [employer] Start: 07-12-2023 End: 07-12-2023 ambulatory Lyndon Eufemiawood Other [facility] Other Start: 07-12-2023 Office outpatient visit 25 minutes Lyndon Easterwood [facility] Start: 07-12-2023 Telephone encounter Lyndon Easterwood [facility] Start: 07-08-2023 End: 07-08-2023 ambulatory SOBEIDA THOMPSON Facility:[facility] Start: 06-27-2023 End: 06-27-2023 ambulatory Lyndon Easterwood Other [facility] Other Start: 06-27-2023 Telephone encounter Lyndon Easterwood [facility] [place] Start: 06-21-2023 End: 06-21-2023 ambulatory SOBEIDA THOMPSON Facility:[facility] Start: 06-01-2023 End: 06-01-2023 ambulatory Benjamin BAKER Facility:[facility] Start: 06-01-2023 End: 06-01-2023 ambulatory Bill Kat Facility:[facility] Start: 05-26-2023 End: 05-26-2023 [facility] Start: 05-25-2023 End: [facility] [employer] [facility] Start: 05-25-2023 Office outpatient visit 15 minutes Lyndon Dalal [facility] Start: 05-17-2023 End: 05-17-2023 ambulatory Benjamin BAKER Facility:[facility] Start: 05-05-2023 End: 05-05-2023 ambulatory Benjamin BAKER Facility:[facility] Start: 04-15-2023 End: 04-15-2023 ambulatory Benjamin BAKER Facility:[facility] Start: 04-06-2023 End: 04-06-2023 ambulatory MARTINA RODRIGUEZ Facility:[facility] Start: 03-08-2023 End: 03-08-2023 ambulatory MARTINA RODRIGUEZ Facility:[facility] Start: 03-08-2023 End: 03-08-2023 Patient encounter procedure Martina Rodriguez MD, PhD Work Phone: Endocrinology Comment on above: Vikki's thyroidi tis (Primary Dx) Start: 02-28-2023 End: 02-28-2023 ambulatory Lyndon Fallhinkle Other [facility] [employer] Other Start: 02-28-2023 Telephone encounter Lyndon Dalal [facility] Start: 02-21-2023 End: 02-21-2023 ambulatory Lyndon Dalal Facility:[facility] Start: 02-21-2023 End: 02-21-2023 ambulatory [employer] Lyndon Dalal Work Phone: [facility] Work Phone: Start: 02-21-2023 End: 02-21-2023 Discharged Recurring [employer] Lyndon Dalal Work Phone: [facility] [place] Work Phone: Start: 08-09-2022 End: 08-09-2022 ambulatory Lyndon aDlal Other [facility] Other Start: 08-09-2022 Telephone encounter Lyndno Dalal [facility] Start: 08-05-2022 End: 08-06-2022 Emergency department patient visit Lyndon Dalal Facility:[facility] Start: 08-05-2022 End: 08-05-2022 ambulatory Lyndon Dalal Other [facility] Other Start: 08-05-2022 Office outpatient visit 40 minutes Lyndon Dalal [facility] Plan of Treatment Date Care Activity Detail Author Start: 08-08-2023 End: 10-08-2023 Thyrotropin [Units/volume] in Serum or Plasma TSH BLD Lab Routine Vikki's thyroiditis Expected: 08/08/2023, Expires: 10/08/2023 [facility] Work Phone: Comment on above: Expected: 08/08/2023 , Expires: 10/08/2023 Start: 08-08-2023 End: 10-08-2023 Thyroxine (T4) free [Mass/volume] in Serum or Plasma T4 FREE/FREE THYROX Lab Routine Vikki's thyroiditis Expected: 08/08/2023, Expires: 10/08/2023 [facility] Work Phone: Comment on above: Expected: 08/08/2023 , Expires: 10/08/2023 Start: 07-07-2023 Urine microalbumin profile [facility] Start: 07-01-2023 Covid-19 Vaccine () Covid-19 Vaccine () [facility] Start: 07-01-2023 Influenza vaccination Influenza Vacc ine (#1) [facility] Start: 03-31-2023 End: 05-31-2023 Thyroglobulin Ab [Units/volume] in Serum or Plasma THYROGLOBULIN AB Lab Routine Vikki's thyroiditis Expected: 03/31/2023, Expires: 05/31/2023 [facility] Work Phone: Comment on above: Expected: 03/31/2023 , Expires: 05/31/2023 Start: 03-31-2023 End: 05-31-2023 THYROID PEROXIDASE ANTIBODY BLOOD THYROID PEROXIDASE ANTIBODY BLOOD Lab Routine Vikki's thyroiditis Expected: 03/31/2023, Expires: 05/31/2023 [facility] Work Phone: Comment on above: Expected: 03/31/2023 , Expires: 05/31/2023 Start: 03-31-2023 End: 05-31-2023 Thyrotropin [Units/volume] in Serum or Plasma TSH BLD Lab Routine Vikki's thyroiditis Expected: 03/31/2023, Expires: 05/31/2023 [facility] Work Phone: Comment on above: Expected: 03/31/2023 , Expires: 05/31/2023 Start: 03-31-2023 End: 05-31-2023 Thyroxine (T4) free [Mass/volume] in Serum or Plasma T4 FREE/FREE THYROX Lab Routine Vikki's thyroiditis Expected: 03/31/2023, Expires: 05/31/2023 [facility] Work Phone: Comment on above: Expected: 03/31/2023 , Expires: 05/31/2023 Start: 03-31-2023 End: 05-31-2023 Triiodothyronine (T3) Free [Mass/volume] in Serum or Plasma T3 FREE BLD Lab Routine Vikki's thyroiditis Expected: 03/31/2023, Expires: 05/31/2023 [facility] Work Phone: Comment on above: Expected: 03/31/2023 , Expires: 05/31/2023 Start: 10-31-2022 DEPRESSION ASSESSMENT DEPRESSION ASS ESSMENT [facility] Start: 2021 PAP TESTING PAP TESTING [facility] Start: 02-02-2021 COVID-19 VACCINE (3 - Booster for Pfizer series) COVID-19 VACCINE (3 - Booster for Pfizer series) [facility] Start: 2018 CHLAMYDIA SCREENING (18-24) CHLAMYDIA SCREENING (18-24) [facility] Start: 2018 GC (GONORRHEA) SCREE MICHELLE (18-24) GC (GONORRHEA) SCREENING (18-24) [facility] Start: 2018 HEPATITIS C SCREENING HEPATITIS C SC REENING [facility] Start: 2018 HIV SCREENING HIV SCREENING [facility] Start: 2016 Meningococcal B Vacc ine: Consider Based On Risk (2 of 2 - Risk Bexsero 2-dose series) Meningococcal B Vaccine: Consider Based On Risk (2 of 2 - Risk Bexsero 2-dose series) [facility] Start: 2016 MENINGOCOCCAL B: 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 (2 of 2 - Risk Bexsero 2-dose series) MENINGOCOCCAL B: Consider based on risk (2 of 2 - Risk Bexsero 2-dose series) [facility] Start: 2014 PEDS TO ADULT TRANSI TION ANNUAL ASSESSMENT PEDS TO ADULT TRANSITION ANNUAL ASSESSMENT [facility] Start: 2012 PEDS TO ADULT TRANSI TION INITIAL DISCUSSION PEDS TO ADULT TRANSITION INITIAL DISCUSSION [facility] [place] [facility] Immunizations Immunization Date Immunization Notes Care Provider Milady lewis 07-19-2022 influenza, injectabl e, quadrivalent, contains preservative Lyndon Easterwood Other [facility] Other 07-19-2022 influenza virus vaccine, unspecified formulation Martina Rodriguez MD, PhD Work Phone: [facility] 12-08-2020 Do not use COVID-19 Pfizer 2 dose Lyndon Easterwood Other [facility] Other 11-17-2020 Do not use COVID-19 Pfizer 2 dose Lyndon Easterwood Other [facility] Other 07-31-2020 influenza, injectabl e, quadrivalent, contains preservative Lyndon Easterwood Other [facility] [employer] Other 10-18-2016 influenza, injectabl e, quadrivalent, contains preservative Martina Rodriguez MD, PhD Work Phone: [facility] 08-04-2015 influenza, injectabl e, quadrivalent, contains preservative Martina Rodriguez MD, PhD Work Phone: [facility] 04-23-2014 human papilloma viru s vaccine, quadrivalent Martina Rodriguez MD, PhD Work Phone: [facility] 09-29-2013 human papilloma viru s vaccine, quadrivalent Martina Rodriguez MD, PhD Work Phone: [facility] 07-07-2013 human papilloma viru s vaccine, quadrivalent Martina Rodriguez MD, PhD Work Phone: [facility] 07-07-2013 meningococcal polysaccharide (groups A, C, Y and W-135) diphtheria toxoid conjugate vaccine (MCV4P) Martina Rodriguez MD, PhD Work Phone: [facility] Work Phone: 07-07-2013 tetanus toxoid, redu ollie diphtheria toxoid, and acellular pertussis vaccine, adsorbed Martina Rodriguez MD, PhD Work Phone: [facility] 08-04-2009 influenza virus vaccine, unspecified formulation Martina Rodriguez MD, PhD Work Phone: [facility] 07-05-2008 hepatitis A vaccine, unspecified formulation Martina Rodriguez MD, PhD Work Phone: [facility] 09-09-2007 influenza virus vaccine, unspecified formulation Martina Rodriguez MD, PhD Work Phone: [facility] Work Phone: 06-19-2007 hepatitis A vaccine, unspecified formulation Martina Rodriguez MD, PhD Work Phone: [facility] 06-19-2007 varicella virus vaccine Parth Rodriguez MD, PhD Work Phone: [facility] 09-14-2006 influenza virus vaccine, unspecified formulation Martina Rodriguez MD, PhD Work Phone: [facility] 05-13-2006 diphtheria, tetanus toxoids and acellular pertussis vaccine Martina Rodriguez MD, PhD Work Phone: [facility] Work Phone: 05-13-2006 measles, mumps and rubella virus vaccine Martina Rodriguez MD, PhD Work Phone: [facility] Work Phone: 05-13-2006 poliovirus vaccine, inactivated Martina Rodriguez MD, PhD Work Phone: [facility] Work Phone: 05-13-2006 varicella virus vaccine Parth Rodriguez MD, PhD Work Phone: [facility] Work Phone: 07-26-2005 influenza virus vaccine, unspecified formulation Martina Rodriguez MD, PhD Work Phone: [facility] Work Phone: 07-30-2004 influenza virus vaccine, unspecified formulation Martina Rodriguez MD, PhD Work Phone: [facility] Work Phone: 06-30-2002 diphtheria, tetanus toxoids and acellular pertussis vaccine Martina Rodriguez MD, PhD Work Phone: [facility] Work Phone: 06-30-2002 poliovirus vaccine, inactivated Martina Rodriguez MD, PhD Work Phone: [facility] Work Phone: 04-04-2002 haemophilus influenz ae type b vaccine, HbOC conjugate Martina Rodriguez MD, PhD Work Phone: [facility] Work Phone: 04-04-2002 measles, mumps and rubella virus vaccine Martina Rodriguez MD, PhD Work Phone: [facility] Work Phone: 12-16-2001 hepatitis B vaccine, pediatric or pediatric/adolescent dosage Martina Rodriguez MD, PhD Work Phone: [facility] Work Phone: 12-16-2001 pneumococcal conjuga te vaccine, 7 david Rodriguez MD, PhD Work Phone: [facility] Work Phone: 09-30-2001 pneumococcal conjuga te vaccine, 7 valdenny Rodriguez MD, PhD Work Phone: [facility] Work Phone: 06-24-2001 diphtheria, tetanus toxoids and acellular pertussis vaccine Martina Rodriguez MD, PhD Work Phone: [facility] Work Phone: 06-24-2001 haemophilus influenz ae type b vaccine, HbOC conjugate Martina Rodriguez MD, PhD Work Phone: [facility] Work Phone: 06-24-2001 pneumococcal conjuga te vaccine, 7 david Rodriguez MD, PhD Work Phone: [facility] Work Phone: 04-12-2001 diphtheria, tetanus toxoids and acellular pertussis vaccine Martina Rodriguez MD, PhD Work Phone: [facility] Work Phone: 04-12-2001 haemophilus influenz ae type b vaccine, HbOC conjugate Martina Rodriguez MD, PhD Work Phone: [facility] Work Phone: 04-12-2001 poliovirus vaccine, inactivated Martina Rodriguez MD, PhD Work Phone: [facility] Work Phone: 02-03-2001 diphtheria, tetanus toxoids and acellular pertussis vaccine Martina Rodriguez MD, PhD Work Phone: [facility] Work Phone: 02-03-2001 haemophilus influenz ae type b vaccine, HbOC conjugate Martina Rodriguez MD, PhD Work Phone: [facility] Work Phone: 02-03-2001 poliovirus vaccine, inactivated Martina Rodriguez MD, PhD Work Phone: [facility] Work Phone: 2000 hepatitis B vaccine, pediatric or pediatric/adolescent dosage Martina Rodriguez MD, PhD Work Phone: [facility] Work Phone: 2000 hepatitis B vaccine, pediatric or pediatric/adolescent dosage Martina Rodriguez MD, PhD Work Phone: [facility] Work Phone: Payers Date Payer Category Payer Private Health Insurance [id number] 2024 Unknown [id number] 2023 Unknown [id number] 2022 Private Health Insurance [id number] 2022 Self-pay 2020 Private Health Insurance [id number] 2020 Private Health Insurance [id number] 2000 Unknown [id number] [id number] 2000 Unknown [id number] [id number] 2000 Unknown [id number] [id number] 2000 Unknown [id number] [id number] 2000 Unknown [id number] [id number] 2000 Unknown [id number] [id number] 2000 Unknown [id number] [id number] 2000 Unknown [id number] [id number] 2000 Unknown [id number] [id number] 2000 Unknown [id number] [id number] 2000 Unknown [id number] [id number] 2000 Unknown [id number] [id number] 2000 Unknown [id number] [id number] Private Health Insurance [facility] [id number] Unknown [id number] [id number] Unknown [facility] Employees [id number] Unknown [id number] [id number] Unknown [id number] Social History Date Type Detail Facility Start: 03-08-2023 Sex Assigned At [facility] Other Start: 09-27-2014 End: 08-05-2022 Tobacco smoking status CAIS Never smoked tobacco [facility] History of tobacco use Passive smoker [facility] Start: 03-08-2023 Alcohol intake Not Asked [facility] Start: 2000 Sex Assigned At Not on file C [facility] Start: 2000 Sex Assigned At Female F [facility] Start: 03-08-2023 History of Social function [facility] Clinical Notes 09-09-2009 to 09-15-2023 Note Date & Type Note Facility 09-15-2023 Evaluation note Encounter Date Diagnosis Assessment Notes Aug, Strain of neck muscle, initial encounter (ICD-10 - S16.1XXA) Discussed conservative measures at this time as well as moving forward with physical therapy and x-rays of the cervical and thoracic spine. I did make her aware that it does not seem to be pain specific to the right shoulder joint itself. I have very little suspicion for rotator cuff tear. I did explain there is more probability of a cervical or thoracic spine issue and pinched nerve. Patient verbalized understanding of this.Hardcopy order completed in office today for physical therapy to [facility]. Discussed continuation of [id number] medications as needed. Take muscle relaxer as directed. Do not drink with alcohol or use with other recreational drugs. May cause severe drowsiness. Do not operate a motor vehicle until you know how this medication will effect you. Aug, Thoracic spine pain (ICD-10 - M54.6) Discussed conservative measures at this time as well as moving forward with physical therapy and x-rays of the cervical and thoracic spine. I did make her aware that it does not seem to be pain specific to the right shoulder joint itself. I have very little suspicion for rotator cuff tear. I did explain there is more probability of a cervical or thoracic spine issue and pinched nerve. Patient verbalized understanding of this.Hardcopy order completed in office today for physical therapy to [facility]. Discussed continuation of [id number] medications as needed. Take muscle relaxer as directed. Do not drink with alcohol or use with other recreational drugs. May cause severe drowsiness. Do not operate a motor vehicle until you know how this medication will effect you. 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 She understands that if there is any abnormality symptomatic disposition or concerns, she needs to follow back up with endocrinology. Aug, Other *Progress note was completed with the assistance of voice recognition software for dictation purposes. Please excuse any grammatical errors that were not corrected during review process. [facility] Other 09-12-2023 Evaluation note* Encounter Date Diagnosis Assessment Notes Treatment Notes Treatment Clinical Notes Jul, Other acute gastritis with hemorrhage (ICD-10 - K29.01) Given her history, increased stress, recent symptoms and the one-time emesis with blood, I would like to refer to gastroenterology for possible EGD. I do not feel there is concern for significant upper GI bleed. I did see a picture in office today of the emesis which was minimal in regards to the blood volume. Seems consistent with duodenal ulcer based on reported symptomology. Will initiate pantoprazole x8 weeks. Discussed taking the medication every day. Discussed dietary triggers to avoid. We will follow-up in 8 weeks for good measure to ensure patient has scheduled follow-up with gastroenterology and symptoms are improving with the addition of the medication. Adding EGG/colonoscopy and GERD to medical history. Jul, Other *Progress note was completed with the assistance of voice recognition software for dictation purposes. Please excuse any grammatical errors that were not corrected during review process. [facility] Other 07-26-2023 Evaluation note* Encounter Date Diagnosis Assessment Notes Treatment Notes Treatment Clinical Notes Apr, Dysuria (ICD-10 - R30.0) Urinalysis initially positive for white cells and nitrites. Also positive for crystals. Does have history of nephrolithiasis with mild right flank pain. Could trial short course of Flomax to help facilitate passing of stone, reducing complication and pain. Will call in 48 hours if culture results as resistant to Macrobid. Please take the entire course of antibiotic. Discussed what symptoms would warrant immediate evaluation by emergency department. Apr, Other *Progress note was completed with the assistance of voice recognition software for dictation purposes. Please excuse any grammatical errors that were not corrected during review process. [facility] Other 06-18-2023 NoteEchocardiology Procedure Exam Date/Time Accession # Ordering ECG Stress Exercise 04/15/2023 08:43 EDT [id number] Samuel VELAZQUEZ, Benjamin Lopez CPT code 40501 Reason for Exam (ECG Stress Exercise) I95.1;Dizziness Report INDICATION: Hypotension and dizziness. RESTING EKG: The patient appears to have normal sinus rhythm, normal axis, normal intervals, no evidence of previous myocardial infarction. TREADMILL EKG: The patient exercised according to a Juan protocol for 10 minutes and 01 seconds achieving a maximum workload of 11.70 METS. Resting heart rate was 80 beats per minute and galen to a maximum of 196 beats per minute which represents 98% of the maximal age-predicted heart rate. Resting blood pressure was 107/76 and galen to a maximum of 160/92. Test was terminated due to heart rate achieved. During exercise, the patient's heart rate increased as expected. The patient developed T wave inversion on the inferolateral leads, however, the patient had no ST segment depression, arrhythmias or anginal symptoms noted. This T wave inversion was temporary in the early stages of the test and then normalized into recovery. CONCLUSIONS: Normal, adequate, treadmill electrocardiogram. Negative for ischemia by electrocardiographic criteria. No anginal symptoms noted. No arrhythmias noted. Appropriate blood pressure response to exercise. Average exercise capacity for age. Patient tolerated procedure well. No complications. FINAL REPORT Signed (Electronic Signature): 04/17/2023 6:33 pm Signed by: Benjamin Baker MD Transcribed by: jamie Technologist: [facility]06-16-2023 Note Echocardiology Procedure Exam Date/Time Accession # Ordering Echo Transthoracic 04/15/2023 09:42 EDT [id number] Benjamin Baker MD Complete CPT code 00165 [id number] Reason for Exam (Echo Transthoracic Complete) I95.9;Hypotension Report [address] [address] Adult Echocardiogram Report Name: EMMY DALE Study Date: 04/15/2023 09:02 AM BP: 105/71 mmHg Patient Location: [facility] HR: 75 : 2000 Gender: Female Height: 63 in Age: 22 yrs Ethnicity: T Weight: 178 lb Reason For Study: Hypotension BSA: 1.8 m2 History: No cardiac history per patient Ordering Physician: Samuel^Benjamin^John Referring Physician: Benjamin Baker Performed By: Jonelle Alvarez, [facility] Interpretation Summary Ejection Fraction = 60-65%. The left ventricular wall motion is normal. Normal diastolic function. There is trace tricuspid regurgitation. Right ventricular systolic pressure is 24 mmHg. In comparison echo report dated 06/11/2014, no appreciable changes noted. Procedure A complete two-dimensional transthoracic echocardiogram was performed (2D, M- mode, spectral and color flow Doppler). Study quality is good. I WMSI = 1.00 % Normal = 100 Segments Size X - Cannot 2 - 1-2 small Interpret 1 - Normal Hypokinetic 3 - Akinetic 4 - Dyskinetic3-5 moderate 5 - Aneurysmal 6-14 large 15-16 diffuse Left Ventricle The left ventricle is normal in size. Ejection Fraction = 60-65%. The left ventricular wall motion is normal. Normal Echocardiology Report diastolic function. Left Atrium The left atrial size is normal. Right Atrium Right atrial size is normal. Right Ventricle The right ventricular systolic function is normal. Aortic Valve The aortic valve is trileaflet. Mitral Valve Mitral valve structure is normal. Tricuspid Valve Structurally normal tricuspid valve. There is trace tricuspid regurgitation. Right ventricular systolic pressure is 24 mmHg. Pulmonic Valve The pulmonic valve is normal. Arteries The aortic root is normal in size. Venous The inferior vena cava is normal in size, and collapses normally with respiration. Effusion There is no pericardial effusion. MMode/2D Measurements & Calculations RVDd: 2.2 cm LVIDd: 4.5 cm FS: 29.1 % Ao root diam: 2.6 cm IVSd: 1.0 cm LVIDs: 3.2 cm EDV(Teich): 94.5 ml Ao root area: 5.3 cm2 LVPWd: 0.86 cm ESV(Teich): 41.6 ml LA dimension: 2.9 cm EF(Teich): 55.9 % asc Aorta Diam: 2.0 cm LVLd ap4: 8.6 cm EDV(MOD-sp2): 116.0 ml SV(MOD-sp4): 74.9 ml EDV(MOD-sp4): 122.0 ml ESV(MOD-sp2): 58.6 ml LVLs ap4: 7.1 cm EF(MOD-sp2): 49.5 % ESV(MOD-sp4): 47.1 ml EF(MOD-sp4): 61.4 % TAPSE: 2.2 cm IVC Diam: 2.0 cm RVIDd/LVIDd: 0.49 EF (MOD-bp): 55.8 % LA Vol Index: 17.6 ml/m2 Doppler Measurements & Calculations MV E max leighton: 61.7 cm/sec MV dec time: 0.15 sec Ao V2 max: 108.6 cm/sec LV V1 max P.5 mmHg MV A max leighton: 41.4 cm/sec Ao max P.7 mmHg LV V1 max: 78.8 cm/sec Echocardiology Report MV E/A: 1.5 Lat Peak E' Leighton: 20.3 cm/sec E/E' Lat: 3.0 Med Peak E' Leighton: 14.0 cm/sec E/E' Med: 4.4 TR max leighton: 226.5 cm/sec RAP systole: 3.0 mmHg AV VR: 0.72 TR max P.5 mmHg RVSP(TR): 23.5 mmHg FINAL REPORT Dictated: 04/15/2023 9:02 am Benjamin Baker MD Signed (Electronic Signature): 04/15/2023 5:35 pm Signed by: Benjamin Baker MD Transcribed by: YOVANI Technologist: [facility]05-09-2023 Note HNO ID: [id number] Author: Martina Rodriguez MD, PhD Service: ? Author Type: Physician Type: Progress Notes Filed: 03/08/2023 6:07 PM Note Text: Ms. Dale is here today at the request of Lyndon Dalal CNP for my opinion regarding thyroid problem. My final recommendation will be communicated back to the requesting physician by way of shared medical record or letter. Reason for visit: Vikki's disease. Abnormal thyroid function test. Radiological imaging with contrast dyes within last 3 months? no HPI: Emmy Dale is a 22 year old female who is presenting today for evaluation and management of a Thyroid problem. She was diagnosed with Vikki's disease about 2 years ago. She was told at that time that her TPO ab is positive but her thyroid function remains normal and she does not need therapy. Lately she has been feeling tired, her muscles ache and she has had intermittent dizziness usually at night when she lay down. TSH in Oct 2022 was noted to be 0.1 and FRT4 1.3 In January 2023 TSH was 5.79 and FT4 0.71 and FT3 2.4 Thyroid US in January 2023 showed heterogenous parenchyma with no distinct nodules. Neck pressure symptoms. No H/O exposure to ionizing radiation to the head and neck. No H/O Thyroid cancer in one or more first degree relatives. No H/O Prior Thyroid surgery. No Review of Systems Constitutional: Positive for fatigue. Negative for night sweats and recent unintentional weight change. HENT: Positive for thyroid pain (lower neck). Negative for trouble swallowing and postnasal drip. Eyes: Negative for visual disturbance. Respiratory: Negative for difficulty breathing. Cardiovascular: Negative for chest pain, leg swelling and claudication. Gastrointestinal: Negative for heartburn, nausea, vomiting, abdominal pain, diarrhea and constipation. Genitourinary: Positive for irregular menses. Negative for urgency, frequent urination, slower stream, menstruating and amenorrhea. Musculoskeletal: Positive for myalgias. Negative for muscle weakness and bone pain. Skin: Positive for skin color changes. Neurological: Positive for dizziness and headaches. Negative for numbness. Endo/Heme/Allergies: Negative for polydipsia, cold intolerance when others are comfortable, heat intolerance when others are comfortable, hot flashes, flushing and changes in body hair. PAST MEDICAL HISTORY Diagnosis Date Unspecified asthma(493.90) Social History: Social History Tobacco Use Smoking status: Passive Smoke Exposure - Never Smoker FAMILY HISTORY Problem Relation Age of Onset Allergies Brother Asthma Father other (myocarditis [Other]) Father 07/06; ? viral infection; PGM [place] P[place] the time of his conception other (swelling with ? allergies [Other]) Father Heart Paternal Grandmother GI Sister esophagitis, gallbladder other (thyroid cancer [Other]) Other other (single kidney [Other]) Paternal Uncle other (rheumatoid arth [Other]) Paternal Aunt crippled since age 40 other (rheumatoid [Other]) Sister disabled. other (sciatica [Other]) Paternal Aunt 25 Arthritis Father in blood . was at [facility] when baby thought to be related to neuro problems. Family Hx: half sister had h/o thyroid CA and Vikki's Current Outpatient Medications Medication Sig BIOTIN ORAL Take by mouth q 24 HR. calcium carb/magnesium carb (CALCIUM AND MAGNESIUM CARBONATES ORAL) Calcium AND Magnesium Carbonates 1000MG and 500MG - one capsule daily, OTC Active IODINE ORAL Iodine 225MCG capsule daily, OTC Active MULTI-VITAMIN ORAL Multivitamin OTC, daily Active vit no.124/iron/folic ( VITAMIN ORAL) Vitamins OTC, daily Active Lactobacillus acidophilus (PROBIOTIC ORAL) Probiotic OTC, daily Active THYROID ORAL Thyroid SOLARAY Bladderwrack Seaweed, Healthy Thyroid Balance and Weight Management Support daily Active Drospirenone-Ethinyl Estradiol (CATY, 28,) 3-0.03 mg per tablet Take 1 tablet by mouth once daily. omeprazole (PRILOSEC) 20 mg capsule Take 1 capsule by mouth once daily. lactobacillus rhamnosus (CULTURELLE) 10 billion cell capsule Take 1 capsule by mouth once daily. No current facility-administered medications for this visit. Physical Exam BP 116/76 Wt 83.9 kg (185 lb) LMP 04/21/2015 APPEARANCE: Well appearing, alert, in no acute distress, well-hydrated, well nourished. EYES extra occular movements normal, no thyroid eye signs NECK Supple, no adenopathy. THYROID : mild diffuse enlargement. HEART RRR , no JVD appreciated RESP: normal unlabored breathing on room air NEURO Awake, alert and oriented x 3 and No involuntary motions. SKIN color, texture, turgor normal, no rashes or lesions Impression and Recommendations: (E06.3) Vikki's thyroiditis (primary encounter diagnosis) Comment: intermittent thyroid dysfunction Plan: Will monitor thyroid (more content not included)...[facility] 03-08-2023 History of Present illness Narrative* Martina Rodriguez MD, PhD - 03/08/2023 4:20 PM EDT Ms. Dale is here today at the request of Lyndon Dalal CNP for my opinion regarding thyroid problem. My final recommendation will be communicated back to the requesting physician by way of shared medical record or letter. Reason for visit: Vikki's disease. Abnormal thyroid function test. Radiological imaging with contrast dyes within last 3 months? no HPI: Emmy Dale is a 22 year old female who is presenting today for evaluation and management of a Thyroid problem. She was diagnosed with Vikki's disease about 2 years ago. She was told at that time that her TPO ab is positive but her thyroid function remains normal and she does not need therapy. Lately she has been feeling tired, her muscles ache and she has had intermittent dizziness usually at night when she lay down. TSH in Oct 2022 was noted to be 0.1 and FRT4 1.3 In January 2023 TSH was 5.79 and FT4 0.71 and FT3 2.4 Thyroid US in January 2023 showed heterogenous parenchyma with no distinct nodules. Neck pressure symptoms. No H/O exposure to ionizing radiation to the head and neck. No H/O Thyroid cancer in one or more first degree relatives. No H/O Prior Thyroid surgery. No Review of Systems Constitutional: Positive for fatigue. Negative for night sweats and recent unintentional weight change. HENT: Positive for thyroid pain (lower neck). Negative for trouble swallowing and postnasal drip. Eyes: Negative for visual disturbance. Respiratory: Negative for difficulty breathing. Cardiovascular: Negative for chest pain, leg swelling and claudication. Gastrointestinal: Negative for heartburn, nausea, vomiting, abdominal pain, diarrhea and constipation. Genitourinary: Positive for irregular menses. Negative for urgency, frequent urination, slower stream, menstruating and amenorrhea. Musculoskeletal: Positive for myalgias. Negative for muscle weakness and bone pain. Skin: Positive for skin color changes. Neurological: Positive for dizziness and headaches. Negative for numbness. Endo/Heme/Allergies: Negative for polydipsia, cold intolerance when others are comfortable, heat intolerance when others are comfortable, hot flashes, flushing and changes in body hair. PAST MEDICAL HISTORY Diagnosis Date Unspecified asthma(493.90) Social History: Social History Tobacco Use Smoking status: Passive Smoke Exposure - Never Smoker FAMILY HISTORY Problem Relation Age of Onset Allergies Brother Asthma Father other (myocarditis [Other]) Father 07/06; ? viral infection; PGM [place] P[place] the [place] of his conception other (swelling with ? allergies [Other]) Father Heart Paternal Grandmother GI Sister esophagitis, gallbladder other (thyroid cancer [Other]) Other other (single kidney [Other]) Paternal Uncle other (rheumatoid arth [Other]) Paternal Aunt crippled since age 40 other (rheumatoid [Other]) Sister disabled. other (sciatica [Other]) Paternal Aunt 25 Arthritis Father in blood . was at [facility] when baby thought to be related to neuro problems. Family Hx: half sister had h/o thyroid CA and Vikki's Current Outpatient Medications Medication Sig BIOTIN ORAL Take by mouth q 24 HR. calcium carb/magnesium carb (CALCIUM & MAGNESIUM CARBONATES ORAL) Calcium & Magnesium Carbonates 1000MG and 500MG - one capsule daily, OTC Active IODINE ORAL Iodine 225MCG capsule daily, OTC Active MULTI-VITAMIN ORAL Multivitamin OTC, daily Active vit no.124/iron/folic ( VITAMIN ORAL) Vitamins OTC, daily Active Lactobacillus acidophilus (PROBIOTIC ORAL) Probiotic OTC, daily Active THYROID ORAL Thyroid SOLARAY Bladderwrack Seaweed, Healthy Thyroid Balance and Weight Management Support daily Active Drospirenone-Ethinyl Estradiol (CATY, 28,) 3-0.03 mg per tablet Take 1 tablet by mouth once daily. omeprazole (PRILOSEC) 20 mg capsule Take 1 capsule by mouth once daily. lactobacillus rhamnosus (CULTURELLE) 10 billion cell capsule Take 1 capsule by mouth once daily. No current facility-administered medications for this visit. Physical Exam BP 116/76 Wt 83.9 kg (185 lb) LMP 04/21/2015 APPEARANCE: Well appearing, alert, in no acute distress, well-hydrated, well nourished. EYES extra occular movements normal, no thyroid eye signs NECK Supple, no adenopathy. THYROID : mild diffuse enlargement. HEART RRR , no JVD appreciated RESP: normal unlabored breathing on room air NEURO Awake, alert and oriented x 3 and No involuntary motions. SKIN color, texture, turgor normal, no rashes or lesions Impression and Recommendations: (E06.3) Vikki's thyroiditis (primary encounter diagnosis) Comment: intermittent thyroid dysfunction Plan: Will monitor thyroid function for now. No thyroid hormone therapy at this time. 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 Essentially negative with resolving nodules. No thyromegaly to report at this time. We did discuss the elevation of the TSH from 0.1 to greater than 5. Did discuss her symptoms at length.I made her aware that we could initiate a very low-dose of levothyroxine however we would need to recheck the labs in 6 to 8 weeks. Unfortunately autoimmune thyroid dysfunction is difficult to treat as levels can be very erratic and labile. Typically Due to this, we do not initiate methimazole for hyper state or levothyroxine for hypo state based on 1 lab result. Patient verbalizes understanding. At this point I would recommend referral to a different crisis clinician. Patient does have the name of an crisis clinician that she would like referred to. We will put that referral in today. Dr. Roger Kim - [facility], [facility] February, Dizziness (ICD-10 - R42) Discussed her chronic symptoms. I would suggest discontinuing the meclizine as it does not seem to be consistently effective and is likely not treating a vestibular issue. We did discuss the possibility of referral to cardiology or neurology. I do not have concern for significant neuropathic etiology today or cervical spine instability. No red flags at this time.Lengthy discussion regarding referral to specialty. She is agreeable to seeing neurology as the next step. Would like to see [facility].We will put that referral in today. February, Other I have spent 20 minutes with this patient and over 50% of the visit was counseling done by myself, Lyndon ZAMBRANO. *Progress note was completed with the assistance of voice recognition software for dictation purposes. Please excuse any grammatical errors that were not corrected during review process. [facility] Other 10-06-2022 Evaluation note* Encounter Date Diagnosis Assessment Notes Treatment Notes Treatment Clinical Notes Jul, Vikki's thyroiditis (ICD-10 - E06.3) Discussed the need for thyroid labs as she is having weight loss, a history of thyroiditis, and diarrhea. Jul, spinal headache (ICD-10 - O89.4) Patient has substantial concerns over possible spinal headaches and needing blood patch. If she does not want to go to ER, I highly recommend she call [facility] the second she leaves our office to follow-up.She needs to let them know about her concerns.I explained to her that even though she may assume that her [facility] will not listen her , I still want her to reach out to that office and explained to them her current concerns. She wants to know what the immediate treatment would be and work-up for spinal headache and possible leak however I cannot provide her with this information as I am not [facility]. Jul, Hip pain (ICD-10 - M25.559) While I did ask her about the hip pain currently, She states she is not necessarily as concerned about this as her other symptoms. She just wanted to bring this up to me. We can follow-up regarding this topic at her next visit. Jul, Viral illness (ICD-10 - B34.9) Discussed illness at this time. Likely viral in nature and does not require antibiotics. I did discuss with her concerns over [id number] medications during breast-feeding. Discussed recommendations currently and please bring this up to [facility] as well for further recommendations. Does not require flu or COVID testing today. Jul, Mother currently breast-feeding (ICD-10 - Z39.1) Jul, Chronic fatigue (ICD-10 - R53.82) Discussed drawling iron studies, CBC as well as B12 for fatigue. However, I did make patient aware that she is 4 weeks and fatigue is typically a symptom as she is going to be out breast-feeding all night every night.We can follow-up on these labs in office once they are completed. Jul, Dizziness (ICD-10 - R42) Did discuss CT of the head at this time. I do not feel this is necessarily The quickest most appropriate course of work-up. I would like her to follow-up with [facility] or go to ER regarding this dizziness and we can follow-up in office after. If nothing comes from an [facility]/spinal headache/spinal leak standpoint, we can order CT of the head at that time. Jul, Unintentional weight loss (ICD-10 - R63.4) Discussed her reported unintentional weight loss. I did make her aware that she is going to lose weight after having a baby which is very common obviously. She is also going to lose weight when breast-feeding as the baby is taking much of her nutrients. Patient does have a decreased appetite which is also causing her to lose the weight.We will continue to follow-up with this as well as other symptoms. Jul, Other *Progress note was completed with the assistance of voice recognition software for dictation purposes. Please excuse any grammatical errors that were not corrected during review process. [facility] Other 11-10-2009 History of Past illness Narrative* Problem Noted Date Resolved Date Constipation 09/09/2009 08/28/2014 documented as of this encounter (statuses as of 03/09/2023) [facility] History of Past illness Narrative* Problem Noted Date Diagnosed Date Resolved Date Constipation 09/09/2009 08/28/2014 documented as of this encounter (statuses as of 08/09/2023) [facility] noteNo InformationNort Infor[facility] Other Evaluation note* Diagnosis Vikki's thyroiditis- Primary Chronic lymphocytic thyroiditis documented in this encounter [facility] noteNo assessment information availableC[facility] Work Phone: Evaluation note* Diagnosis Vikki's thyroiditis- Primary Chronic lymphocytic thyroiditis documented in this encounter [facility] general Narrative - Reported* Type Description Date Medical History Asthma Medical History Vasovagal syndrome- childhood (r esolved) Medical History Exercise-induced asthma Medical History Pityriasis rosea Medical History Tachycardia Medical History Vikki's thyroiditis Medical History Pre-eclampsia Surgical History [employer] teeth extract 2017 Surgical History Vaginal childbirth 03/2022 Hospitalization History See surgical hx [facility] Other [facility] general Narrative - Reported* Type Description Date Medical History Exercise-induced asthma Medical History Pityriasis rosea Medical History Tachycardia Medical History Vikki's thyroiditis Medical History Asthma Medical History Pre-eclampsia Medical History Hypotension Surgical History [employer] teeth extract 2017 Surgical History Vaginal childbirth 03/2022 Hospitalization History See surgical [facility] Other [facility] general Narrative - Reported* Type Description Date Medical History Exercise-induced asthma Medical History Pityriasis rosea Medical History Tachycardia Medical History Vikki's thyroiditis Medical History Asthma Medical History Pre-eclampsia Medical History Hypotension Medical History GERD (gastroesophageal reflux di sease) Surgical History [employer] teeth extract 2017 Surgical History Vaginal childbirth 03/2022 Surgical History EGD/colonoscopy 2012 Hospitalization History See surgical hx [facility] Other [facility] general Narrative - Reported* Type Description Date Medical History Exercise-induced asthma Medical History Pityriasis rosea Medical History Tachycardia Medical History Vikki's thyroiditis Medical History Asthma Medical History Pre-eclampsia Medical History Hypotension Medical History GERD (gastroesophageal reflux di sease) Medical History Thyromegaly Surgical History [employer] teeth extract 2017 Surgical History Vaginal childbirth 03/2022 Surgical History EGD/colonoscopy 2012 Hospitalization History See surgical hx [facility] Other Hisyra[facility] general Narrative - Reported* Type Description Date Medical History Exercise-induced asthma Medical History Pityriasis rosea Medical History Tachycardia Medical History Vikki's thyroiditis Medical History Asthma Medical History Pre-eclampsia Medical History Hypotension Medical History GERD (gastroesophageal reflux di sease) Medical History Thyromegaly Medical History Other idiopathic scoliosis, thor acic region Surgical History [employer] teeth extract 2016 Surgical History Vaginal childbirth 03/2022 Surgical History EGD/colonoscopy 2012 Hospitalization History See surgical hx [facility] Other Summary Purpose Family History No Family History Records FoundNo Family History Records FoundNo Family History Records FoundNo Family History Records FoundNo Family History Records FoundNo Family History Records Found Advance Directives No Advanced Directives Records Found Advance Directive Response Recorded Date/ Time Advance Directives No January 06 2:42pm Reason for Referral Reason *Waiting for appt GI , possible ulcer Diagnosis 1 Other acute gastriti s with hemorrhage (K29.01) Referral Organization [facility] Family Ava Rivera Referring Provider First Name Lyndon Referring Provider Last Name Katlin Referring Provider Specialty Nurse Pract meenuioner Referred Organization [facility] Gastroenterolo gy Referred Provider Patricio Urena Referred Address [address] [place] [phone] Referred Provider Specialty Gastroentero logy Referral Priority Routine General Notes Misti 023 10:08:56 AM >Received today. [facility] request us to fill out their form and fax to them. They will review the referral and call patient to schedule them. Referral was fax. Misti 07/12/2023 01:31:38 PM >Per telephone encounter, patient wants to try [facility] Gastro doctors. Sent P2P Reason *03/08 Dr. Hawa Kim - [facility], [facility]; [employer]- please send this note with 2 previous notes Diagnosis 1 Vikki's thyroidi tis (E06.3) Referral Organization [facility] Referring Provider First Name Lyndon Referring Provider Last Name [facility] Referring Provider Specialty Nurse Pract [facility] Referred Organization [facility] Referred Address [address] [place], [place],[address] Referred Provider Specialty Endocrinolog y Referral Priority Routine [facility]:21[facility] PM >Received today and referral was fax with the [facility] Form. They will review and call patient to schedule Reason *03/08 Dizzines s- [facility]; Please send this note with 2 previous notes Diagnosis 1 Dizziness (R42) Referral Organization [facility] Referring Provider First Name Lyndon Referring Provider Last Name [facility] Referring Provider Specialty [facility] Referred Organization [facility] Referred Provider Jose Dominguez Referred Address [address] [place], [place],[address] Referred Provider Specialty Neurology Referral Priority Routine General Notes Fore, Misti M 023 01:26:59 PM >Received today. [facility] request us to fill out their form and attach to Referral and send it to them and they will call patient to schedule. Referral was sent P2P Chief Complaint and Reason for Visit Chief Complaint dizzy Additional Source Comments INFORMATION SOURCE (unrecogn ized section and content) DATE CREATED AUTHOR 08/06/2022 [facility] DATE CREATED AUTHOR AUTHOR'S ORGANIZ ATION 08/20/2023 [facility] DATE CREATED AUTHOR AUTHOR'S ORGANIZ ATION 12/09/2023 [facility] DATE CREATED AUTHOR AUTHOR'S ORGANIZ ATION 04/06/2024 [facility] DATE CREATED AUTHOR AUTHOR'S ORGANIZ ATION 04/09/2024 [facility] EPIC REASON FOR VISIT (unrecogniz ed section and content) Reason Comments New Patient Source Comments (unrecognize d section and content) In the event this informatio n is protected by the Federal Confidentiality of Alcohol and Drug Abuse Patient Records regulations: The Federal rules restrict any use of the information to criminally investigate or prosecute any alcohol or drug abuse patient.[facility] Center[facility] the event this information is protected by the Federal Confidentiality of Alcohol and Drug Abuse Patient Records regulations: The Federal rules restrict any use of the information to criminally investigate or prosecute any alcohol or drug abuse patient.[facility] Care Teams (unrecognized sec tion and content) Emergency Department Technician Relationship Specialty Start Date End Date Lyndon Dalal CNP [address] [address] PCP - General Family Medicine 03/08/23 Lyndon Dalal CNP [address] [facility] [address] [place] [address] Referring Family Medicine 03/04/23 Team Status: Active Member Role Status Dates Lyndon Dalal APRN Primary Care Provider Active Team Status: Inactive Member Role Status Dates Lyndon Dalal APRN Primary Care Provider, Attend ing Provider Active Emergency Department Technician Relationship Specialty Start Date End Date Lyndon Dalal CNP [address] [facility] [address] [place] [address] PCP - General Family Medicine 03/08/23 Lyndon Dalal CNP [address] [facility] [address] [place] [address] Referring Family Medicine 03/04/23 Goals (unrecognized section and content) Goals may be documented in a n alternate section FOR RECORDS PERTAINING TO PATIENTS WHO ARE OR HAVE BEEN ENROLLED IN A CHEMICAL DEPENDENCY/SUBSTANCEABUSE PROGRAM, SOME INFORMATION MAY BE OMITTED. This clinical summary was aggregated from multiple sources. Caution should be exercised in using it in the provision of clinical care. This summary normalizes information from multiple sources, and as a consequence, information in this document may materially change the coding, format and clinical context of patient data. In addition, data may be omitted in some cases. CLINICAL DECISIONS SHOULD BE BASED ON THE PRIMARY CLINICAL RECORDS. [facility] [employer] [facility]. provides no warranty or guarantee of the accuracy or completeness of information in this document.
== END 2024-04-09 21:26 | disposition home or self-care (01) ==
LOC: LAB 21:25
PROVIDERS: PCP Family Medicine; Visit Provider Obstetrics & Gynecology
DX: Z01.419 Encounter for gynecological examination (general) (routine) without abnormal findings (principal)
CPT/HCPCS: 87624; 87625; 88175

== ENCOUNTER 2024-05-08 10:15 | Outpatient (OUT) | payer OTHER, SELFPAY ==
[2024-05-10 01:09] LABS: AFP Value 54.6 ng/mL (.); Gest. Age on Collection Date 19.6 weeks (.); Insulin Dep Diabetes No (.); Maternal Age At EDD 23.8 yr (.); OSBR Risk 1 IN 7137 (.); Results Report (.)
== END 2024-05-08 10:16 | disposition home or self-care (01) ==
LOC: LAB 10:17
PROVIDERS: PCP Family Medicine; Visit Provider Obstetrics & Gynecology
DX: Z34.92 Encounter for supervision of normal pregnancy, unspecified, second trimester (principal); Z3A.19 19 weeks gestation of pregnancy
CPT/HCPCS: 36415; 82105

== ENCOUNTER 2024-06-11 06:44 | Outpatient (OUT) | payer OTHER, SELFPAY ==
--- OUTSIDE RECORDS SUMMARY | 2024-06-11 06:47 | XMS_ITS | CCD ---
Author Organization [facility] Care Team Providers Care Bearingizer Name Role Phone Lyndon Dalal Primary Care Unavailable Juancarlos Maria Attending Unavailable Juancarlos Maria Admitting Unavailable Lyndon Dalal Unavailable Lyndon Dalal CNP Unavailable Lyndon Dalal CNP Primary Care Provider [phone] ANKIT Dalal Primary Care Provider ANKIT Dalal Attending Provider LYNDON DALAL Primary Care Unavailable MARTINA RODRIGUEZ Referring Unavailable YOSELIN LYNDON Primary Care Unavailable MARTINA RODRIGUEZ Referring Unavailable MARTINA RODRIGUEZ Referring Unavailable YOSELIN LYNDON Primary Care Unavailable MARTINA RODRIGUEZ Attending Unavailable Lyndon Dalal Attending Unavailable Lyndon Dalal Admitting Unavailable Lyndon Dalal Primary Care Unavailable Lyndon Dalal Attending Unavailable Lyndon Dalal Admitting Unavailable Lyndon Dalal Primary Care Unavailable Shashank GONGORAy R Admitting Unavailable Dami GONGORA R Attending Unavailable MELISSA DALALA Admitting Unavailable [...] THOMPSON Attending Unavailable SOBEIDA THOMPSON Referring Unavailable EASTERWOOD, LYNDON Admitting Unavailable EASTERWOOD, LYNDON Attending Unavailable FUNMI FARIAS Attending Unavailable DAMI GONGORA R Referring Unavailable EASTERWO[place], LYNDON Primary Care Unavailable DAMI GONGORA R Referring Unavailable EASTERWO[place], LYNDON Primary Care Unavailable DAMI GONGORA Attending Unavailable DAMI GONGORA Attending Unavailable DAMI GONGORA Attending Unavailable LELE ALEJO Attending Unavailable Allergies Allergy Classification Reported Allergen(s) Allergy Type Date of Onset Reaction(s) Facility Sulfonamides (antibiotic) (1 source) Sulfonamides (Antibiotic); Translations: [sulfa drugs] Drug Allergy [facility] Repository (5 sources) Sulfonamides (Antibiotic); Translations: [SULFA (SULFONAMIDE ANTIBIOTICS)] Drug allergy (disorder) 5 [facility]ository (2 sources) Sulfonamide Drug allergy rash [facility] Other (14 sources) Substance with sulfonamide structure and antibacterial mechanism of action (substance) Drug allergy 5 [facility] (1 source) Sulfonamides (Antibiotic); Translations: [sulfa drugs] Propensity to adverse reactions (disorder) [facility] Rep[facility] Medications Current Medications Medication Drug Class(es) [...] by fredi th every twenty-four hours Biotin 75063 MCG 1 tablet Orally Once a day OTC Not-Taking/PRN take 1 tablet by fredi th every twenty-four hours Biotin 42795 MCG 1 tablet Orally Once a day OTC Not-Taking take 1 tablet by mouth once [place] y Biotin 07594 MCG 1 tablet Orally Once a day OTC Not-Taking BIOTIN ORAL Take by mouth q 24 HR. 0 Active take 1 tablet by mouth once [place] y Biotin 15822 MCG 1 tablet Orally Once a day [...] Estradiol (1 source) Progestin, Estrogen Start: 10-21-20 16 End: 03-08-20 23 take 1 tablet by [...] Probiotic OTC, daily Active lactobacillus rhamnosus gg [id number] unt oral capsule (1 source) Start: 5 End: 3 take 1 capsule by mouth once daily lactobacillus rhamnosus (CULTURELLE) 10 billion cell capsule Indications: Abdominal pain Take 1 capsule by mouth once daily. 30 capsule 2 04/30/2015 03/08/2023 Discontinued Comment on above: Take 1 capsule by mo [facility] once daily. levothyroxine sodium 0.025 mg [...] on above: Take 1 tablet by fredi once daily. Moringa (14 sources) Moringa 6000MG, [...] Comment on above: Take 1 capsule by [facility] once daily. pantoprazole 20 mg delayed release [...] anesthesia-induced headache during the puerperium Episodic Other complications of (1 source) Obesity complicating , unspecified trimester; Translations: [Obesity complicating , unspecified trimester] Onset: 05-14-2024 Chronic Other complications of (1 source) Endocrine, nutritional and metabolic diseases complicating , second trimester; Translations: [Endocrine, nutritional and metabolic diseases complicating , second trimester] Onset: 05-13-2024 Episodic Other complications of (1 source) Supervision of with other poor reproductive or obstetric history, unspecified trimester; Translations: [Supervision of with other poor reproductive or obstetric history, unspecified trimester] Onset: 05-14-2024 Episodic Other complications of (1 source) Malformation of placenta, unspecified, second trimester; Translations: [Malformation of placenta, unspecified, second trimester] Onset: 05-14-2024 Episodic Other inflammatory condition of skin (14 sources) Pityriasis rosea; Translations: [Pityriasis rosea] Chronic Other non-traumatic joint disorders (1 source) Pain in unspecified hip Episodic Other nutritional; endocrine; and metabolic disorders (1 source) Abnormal weight loss Episodic Other and delivery including normal (1 source) Encounter for care and examination of lactating mother Episodic Other screening for suspected conditions (not mental disorders or infectious disease) (2 sources) Encounter for other specified screening; Translations: [Encounter for screening for cervical length] Onset: 05-14-2024 Episodic Residual codes; unclassified (1 source) 20 weeks gestation of ; Translations: [20 weeks gestation of ] Onset: 05-14-2024 Episodic Spondylosis; intervertebral disc disorders; other back problems (1 source) Pain in thoracic spine Episodic Sprains and strains (1 source) Strain of muscle, fascia and tendon at neck level, initial encounter Episodic Thyroid disorders (20 sources) Goiter; Translations: [Nontoxic goiter, unspecified] Onset: 05-13-2024 Chronic Unclassified (1 source) Pain in right [...] Test Name Value Interpretation Reference Range Facility TSHon 05-31-2024 TSH Qn 1.99 m[IU]/L Normal 0.34-5.60 [facility] Comment on above: Performed By: #### 2 [id number] #### [facility] [address] [place] [address] TSHon 05-01-2024 TSH Qn 1.54 m[IU]/L Normal 0.34-5.60 [facility] Comment on above: Performed By: #### 2 [id number] #### [facility] [address] [place] [address] Consent for Treatmenton Consent for Treatment [id number]#1.00TIF F Normal [facility] Physician Orderon 04-04-2024 Physician Order [id number]#1.00TI FF Normal [facility] TSHon 04-04-2024 TSH Qn 2.73 m[IU]/L Normal 0.34-5.60 [facility] Comment on above: Performed By: #### 2 [id number] #### [facility] [address] [place] [address] XR Spine Cervical 4 or 5 Vie [...] Maximo Kurtz M.D. Transcribed by: MORENO Technologist: JONANE Technical Comments Radiation Dose: Ka,r in mGy = . DAP = . Normal [facility] XR Spine Thoracic 3 Viewson 09-16-2023 XR [...] mGy = . DAP = . Normal [facility] Physician Orderon 09-15-2023 Physician Order [id number]#1.00T IFF Normal [facility] T4 Free SerPl-mCncon 023 Free T4 [Mass/Vol] 1.2 ng/dL Normal 0.9-1.7 [facility] Comment on above: Order Comment: Rozina florez Type: BLOOD SPECIMEN Ordering Facility: [facility] Address: [address] [place] [address] Performed By: #### 3 024-7, 3016-3 #### [facility] CLIA [id number] [address] [facility] [id number] [place] [address] [place] TSH SerPl-aCncon 08-18-2023 TSH Qn 2.280 m[IU]/L Normal 0.270-4.200 [facility] Comment on above: Order Comment: Yevgeniyi vikki Type: BLOOD SPECIMEN Ordering Facility: [facility] Address: [address] [place] [address] Result Comment: If t he patient is , TSH reference range varies by gestational period: First Trimester (weeks 9-12): 0.180-2.990 mIU/L Second Trimester: 0.110-3.980 mIU/L Third Trimester: 0.480-4.710 mIU/L Noe Ramon et al. A Practical Approach for the Verifications and Determination of Site- and Trimester-Specific Reference Intervals for Thyroid Function tests in . Thyroid, 2019:29:3:412-420. Gregor E, et al. 2017 Guidelines of the [place] Thyroid Association for the Diagnosis and Management of Thyroid Disease during and the . Thyroid, 2017:27:3:315-389. Performed By: #### 3 024-7, 3016-3 #### [facility] CLIA [id number] [address] [place] [address] [place] Consent for Treatmenton Consent for Treatment [id number]#1.00CD: 127 [facility] US Renalon 07-08-2023 US Renal [...] Mendoza M.D. Transcribed by: MORENO Technologist: EMILY [facility] XR Abdomen 1 Viewon 07-08-20 [...] = . DAP = . Normal [facility] Ambulatory Visit Summaryon 0 06-21-2023 Ambulatory Visit Summary EMMY DALE :2000 Visit Date:06/21/2023 Ambulatory Visit Instructions Your Diagnosis Urinary crystals Recurrent UTI Urethral stricture Gross hematuria Tests Performed Urnls Dip Stick Auto w/o Microscopy POC 88770 Your Care Team Attending Physician - SOBEIDA [...] Comments: will call pt. Where: [address] [place] [address] You Need to Complete the Following US Renal, *Est. 06/21/23 due within 1 months, Routine, Order for future visit, Transport Mode: Ambulatory, Reason: Other (please specify), Reason: Kidney Stones, No, Kidney stones, pp_set_radiology_subspec ialtlisa, [facility] XR Abdomen 1 View, *Est. 06/21/23 due within 1 months, Routine, Order for future visit, Transport Mode: Ambulatory, Reason: Kidney stone, No, Kidney stones, pp_set_radiology_subspec ialty, [facility] Medications What How Much When Instructions Unchanged busPIRone (busPIRone 10 mg Tab) 2 times a day Contact prescribing physician if questions or concerns Unchanged levothyroxine (Synthroid 25 mcg(0.025 mg) Tab) Every day Contact prescribing physician if questions or concerns Test Results Urnls Dip Stick Auto w/o Microscopy POC 53640 (06/21/2023) Bilirubin Urine Dipstick - Negative Blood Urine Dipstick - Negative Glucose Urine Dipstick - Negative Ketones Urine Dipstick - Negative Leukocytes Urine Dipstick - Negative Nitrite Urine Dipstick - Negative Protein Urine Dipstick - Negative Specific [place] Urine Dipstick - 1.010 Urine Appearance Urine [...] ? 8 oz (237 mL) of milk, ywikbap-zmowdstpsuee-ccv ry milk, and calcium-fortifiedfruit juice. Calcium-fortified means [...] wheat cereals. (more content not included)... Normal [facility] Patient Educationon 06-21-20 Patient Education Nephrology Dietary Guidelines to Help [...] ? 8 oz (237 mL) of milk, ghkydgc-gvycnasssioa-srj ry milk, and calcium-fortifiedfruit juice. Calcium-fortified means [...] Spinach (cooked), rhubarb, beets, sweet potatoes, and Hungarian chard. ? Peanuts. ? Potato chips, rwandan fries, and baked potatoes with skin on. ? Nuts and nut products. ? Chocolate. ? If you regularly take a diuretic medicine, make sure to eat at least 1 or 2 servings of fruits or vegetables that are high in potassium each day. These include: ? Avocado. ? Banana. ? [place], prune, carrot, or tomato juice. ? Baked [...] fish oil, or vitamin B6. ? Take qydu-uam-rhwbwrm and prescription medicines only as told by your health care provider. These include supplements. What foods should I limit? Limit your in (more content not included)... 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 Colud (PCP), crystals was also found in her [...] pass. Will send CORDELIA and KUB to [facility] to see if any persistent [...] Urnls Dip Stick Auto w/o Microscopy POC 32113 4. Gross hematuria (R31.0: Gross hematuria) CORDELIA [...] Information SOBEIDA THOMPSON PA-C, URL [address] [place] [address] Additional Instructions: will call pt. Patient Education [...] History Cystour (more content not included)... Normal [facility] Comment on above: Result Comment: Elec tronically Signed By: SOBEIDA THOMPSON PA-C\.br\Date and Time Signed: 06/21/23 12:44 EDT\.br\Electronically Co-Signed By: Laura Lou\.br\Date and Time Co-Signed: 06/21/23 12:25 EDT PAP [id number] 06-07-2023 Cytology report Cyto stain Doc (Cvx/Vag) Note Invalid Interpretation Code [facility] Comment on above: Result Comment: TEST S RESULT FLAG UNITS REF RANGE LAB Clinician Provided Cytology Information Source.............Endocervix No. of containers..01 ThinPrep Vial DIAGNOSIS: 01 NEGATIVE FOR INTRAEPITHELIAL LESION OR MALIGNANCY. Specimen adequacy: 01 Satisfactory for evaluation. Endocervical and/or squamous metaplastic cells (endocervical component) are present. Performed by: 01 Lali Bolaños, Warranty Manager (ASCP) . 01 Note: Note 01 The [...] High,A-Abnormal,AA-Critical Abnormal Performed at: 01 [facility] [address] [address] Lisa Ellington MD, Performed at: [facility] [address] [id number] MD Chandana Gonzalez Performed By: #### 3 [id number] ####[facility] [address] [place] [address] Consent for Treatmenton Consent for Treatment [id number]: 127 Normal [facility] Heart and Vascular Office/Cl inic Noteon 06-01-2023 [...] but unfortunately she was called by the weaver needle loom and told that it was not working. [...] her Sy (more content not included)... Normal [facility] Comment on above: Result Comment: Elec tronically Signed By: SAMUEL VELAZQUEZ, Benjamin Le.br\Date and Time Signed: 06/01/23 14:25 EDT PAP [id number] 06-01-2023 Collection Technique BRUSH-SPATULA Normal [facility] Comment on above: Performed By: #### 3 [id number] ####[facility] [address] [place] [address] Gynecological Body Site ENDOCERVIX Normal [facility] Comment on above: Performed By: #### 3 [id number] ####[facility] [address] [place] [address] Physician Orderon 06-01-2023 Physician Order [id number]#1.00CD :127 [facility] Physician Order [id number]#1.00CD: 127 [facility] C Urineon 05-27-2023 Bacteria identified [...] Locations R1: This test was performed at: [facility], [address] [place] [address], [address] , , Normal [facility] Comment on above: Performed By: #### 2 [id number] ####[place] [address] T4 Free SerPl-ncon 05-26- 023 Free T4 [Mass/Vol] 1.2 ng/dL Normal 0.9-1.7 [facility] Comment on above: Order Comment: Speci men Type: BLOOD SPECIMEN Ordering Facility: [facility] Address: [address] [place] [id number] Performed By: #### 3 024-7, 3016-3 #### [facility] CLIA [id number] [facility] [place] [address] [place] TSH SerPl-aCncon 05-26-2023 TSH Qn 2.260 m[IU]/L Normal 0.270-4.200 [facility] Comment on above: Order Comment: Speci men Type: BLOOD SPECIMEN Ordering Facility: [facility] Address: [address] [place] [id number] Result Comment: If t he patient is , TSH reference range varies by gestational period: First Trimester (weeks 9-12): 0.180-2.990 mIU/L Second Trimester: 0.110-3.980 mIU/L Third Trimester: 0.480-4.710 mIU/L oNe Ramon et al. A Practical Approach for the Verifications and Determination of Site- and Trimester-Specific Reference Intervals for Thyroid Function tests in . Thyroid, 2019:29:3:412-420. Gregor Banegas, et al. 2017 Guidelines of the [place] Thyroid Association for the Diagnosis and Management of Thyroid Disease during and the . Thyroid, 2017:27:3:315-389. Performed By: #### 3 024-7, 3016-3 #### [facility] CLIA [id number] [address] [place] [address] [place] Consent for Treatmenton 05-01 Consent for Treatment [id number]#1.00CD: 127 Normal [facility] Physician Orderon 05-25-2023 Physician Order [id number]#1.00CD:12 7 Normal [facility] Urinalysison 05-25-2023 Bacteria LM Ql (Urine sed) 2+ /HPF Abnormal Trace [facility] Comment on above: Performed By: #### 1 [id number] ####[facility] [address] [place] [address] Bilirubin Ql (U) Negative Normal Negative [facility] Comment on above: Performed By: #### 1 [id number] ####[facility] [address] [place] [address] Clarity (U) SL CLOUDY Abnormal Clear [facility] Comment on above: Performed By: #### 1 [id number] ####[facility] [address] [place] [address] Color (U) YELLOW Normal Yellow [facility] Comment on above: Performed By: #### 1 [id number] ####[facility] [address] [place] [address] Crystals LM Ql (Urine sed) Present Normal [facility] Comment on above: Performed By: #### 1 [id number] ####[facility] [address] [place] [address] Epithelial cells.squamous LM.HPF (Urine sed) [#/Area] 0-2 Normal 0-2 [facility] Comment on above: Performed By: #### 1 [id number] ####[facility] [address] [place] [address] Glucose Test strip (U) [Mass/Vol] Negative Normal Negative [facility] Comment on above: Performed By: #### 1 [id number] ####[facility] [address] [place] [address] Hemoglobin Ql (U) 2+ Abnormal Negative [facility] Comment on above: Performed By: #### 1 [id number] ####[facility] [address] [place] [address] Ketones (U) [Mass/Vol] Negative Normal Negative [facility] Comment on above: Performed By: #### 1 [id number] ####[facility] [address] [place] [address] [place].plasma/Li thium.RBC (Bld) [Mass ratio] 0-3 Normal 0-3 [facility] Comment on above: Performed By: #### 1 [id number] ####[facility] [address] [place] [address] Mucus Ql (Urine sed) TRACE Normal [facility] Comment on above: Performed By: #### 1 [id number] ####[address] [address] Nitrite Ql (U) Positive Abnormal Negative [facility] Comment on above: Performed By: #### 1 [id number] ####[address] [address] pH (U) 6.0 [pH] Invalid Interpretation Code 5.0-9.0 [facility] Comment on above: Performed By: #### 1 [id number] ####[address] [address] Protein (U) [Mass/Vol] Negative Normal Negative [facility] Comment on above: Performed By: #### 1 [id number] ####[address] [address] Specific gravity (U) [Rel density] 1.010 Invalid Interpretation Code 1.005-1.030 [facility] Comment on above: Performed By: #### 1 9233279 ####[address] [address] Type of Urine collection method Clean Catch Normal [facility] Comment on above: Performed By: #### 1 [id number] ####[address] [address] Urobilinogen Qn (U) 0.2 {Catarino'U}/dL Normal 0.0-1.0 [facility] Comment on above: Performed By: #### 1 [id number] ####[address] [address] WBC Auto Ql (U) 1+ Abnormal Negative [facility] Comment on above: Performed By: #### 1 [id number] ####[address] [address] WBC LM.HPF (Urine sed) [#/Area] 26-30 Abnormal 0-5 [facility] Comment on above: Performed By: #### 1 [id number] ####[address] [address] Consent for Treatmenton 04-30 Consent for Treatment [id number]#1.00CD: 127 Normal [facility] Consent for Treatmenton Consent for Treatment [id number]#1.00CD: 127 Normal [facility] and Vascular Office/Cl inic Noteon 05-05-2023 [...] 1 month. (more content not included)... Normal [facility] Comment on above: Result Comment: Elec tronically Signed By: Samuel VELAZQUEZ, Benjamin Le.br\Date and Time Signed: 05/05/23 16:11 EDT Physician Orderon 05-05-2023 Physician Order [id number]#1.00CD :127 Normal [facility] Stress EKG Tracingson 2022 Stress EKG Tracings [id number]#1.00CD: 127 [facility] Consent for Treatmenton 03-31 Consent for Treatment [id number]#1.00CD: 127 [facility] T3Free SerPl-mCncon 04-06-20 23 Free T3 [Mass/Vol] 3.3 pg/mL Normal 2.3-4.1 [facility] Comment on above: Order Comment: Speci men Type: BLOOD SPECIMEN Ordering Facility: [facility] Address: [address] [place], [place] [id number] Performed By: #### 3 051-0, 3024-7, 3016-3 #### [facility] CLIA [id number] [address] [facility] [place] [address] [place] T4 Free SerPl-mCncon 023 Free T4 [Mass/Vol] 1.4 ng/dL Normal 0.9-1.7 [facility] Comment on above: Order Comment: Rozina florez Type: BLOOD SPECIMEN Ordering Facility: [facility] Address: [address] [place] [address] Performed By: #### 3 051-0, 3024-7, 3016-3 #### [facility] CLIA [id number] [address] [place] [address] [place] [facility] OF S[place] THYROGLOBULIN ABon Thyroglobulin Ab Qn 1.8 [IU]/mL Normal <4.0 [facility] Comment on above: Order Comment: Rozina florez Type: BLOOD SPECIMEN Ordering Facility: [facility] Address: [address] [place] [address] Result Comment: The Thyroglobulin Antibody test was performed using the Clinith[employer] DXI paramagnetic particle chemiluminescent immunoassay method. Results obtained with different assay methods or kits cannot be used interchangeably. Performed By: #### T JASON #### [facility] CLIA [id number] [address] [place] [address] [place] THYROID PEROXIDASE ANTIBODY BLOODon 04-06-2023 [place] Qn 4572.0 [IU]/mL High <5.6 [facility] Comment on above: Order Comment: Rozina florez Type: BLOOD SPECIMEN Ordering Facility: [facility] Address: [address] [place] [address] Result Comment: Thyr oid Peroxidase Antibody test is used as an aid in diagnosis of autoimmune thyroid disease. Clinical correlation is required. Performed By: #### M ICRO #### [facility] CLIA [id number] [address] [place] [address] [place] TSH SerPl-aCncon 04-06-2023 TSH Qn 6.050 m[IU]/L High 0.270-4.200 [facility] Comment on above: Order Comment: Rozina florez Type: BLOOD SPECIMENOrdering Facility: [facility] Address: [address], [place] [address] Result Comment: If t he patient is , TSH reference range varies by gestational period: First Trimester (weeks 9-12): 0.180-2.990 mIU/L Second Trimester: 0.110-3.980 mIU/L Third Trimester: 0.480-4.710 mIU/L Noe Ramon et al. A Practical Approach for the Verifications and Determination of Site- and Trimester-Specific Reference Intervals for Thyroid Function tests in . Thyroid, 2019:29:3:412-420. Gregor Banegas, et al. 2017 Guidelines of the [place] Thyroid Association for the Diagnosis and Management of Thyroid Disease during and the . Thyroid, 2017:27:3:315-389. Performed By: #### 3 051-0, 3024-7, 3016-3 ####[facility] [id number] [address] [facility] CNOVon 03-08-2023 CNOV Office Visit (ENDOLN ) -------- EMMY DALE ([id number]) 1 F Date Time Provider Department 03/08/23 [...] Arthritis Father in blood . was at [facility] when baby thought to be related to [...] (more content not included)... Normal [facility] Vital Signs Date Time Vital Sign Value Performing Clinician Facility 09-15-2023 13:30-0500 Body height 162.56 cm [facility] Other [facility] Other 09-15-2023 13:30-0500 Body mass index (BMI) [Ratio] 30.21 kg/m2 [employer] [facility] [employer] Other 09-15-2023 13:30-0500 Body weight 79.83 kg [employer] [facility] [employer] Other 09-15-2023 13:30-0500 Diastolic blood pressure 68 mm[Hg] Lyndon Easterwood Other [employer] Other 09-15-2023 13:30-0500 Respiratory rate 18 /min Lyndon Easterwood Other [employer] Other 09-15-2023 13:30-0500 SaO2% (BldA) [Mass fraction] 99 % Lyndon Easterwood Other [employer] Other 09-15-2023 13:30-0500 Systolic blood pressure 118 mm[Hg] Lyndon Easterwood Other [employer] Other 07-12-2023 09:15-0400 Body height 162.56 cm Lyndon Easterwood Other [employer] Other 07-12-2023 09:15-0400 Body mass index (BMI) [Ratio] 29.86 kg/m2 Lyndon Easterwood Other [employer] Other 07-12-2023 09:15-0400 Body temperature 98.6 [degF] Lyndon Easterwood Other [employer] Other 07-12-2023 09:15-0400 Body weight 78.93 kg Lyndon Easterwood Other [employer] Other 07-12-2023 09:15-0400 Diastolic blood pressure 70 mm[Hg] Lyndon Easterwood Other [employer] Other 07-12-2023 09:15-0400 Respiratory rate 20 /min Lyndon Easterwood Other [employer] Other 07-12-2023 09:15-0400 SaO2% (BldA) [Mass fraction] 98 % Lyndon Easterwood Other [employer] Other 07-12-2023 09:15-0400 Systolic blood pressure 112 mm[Hg] Lyndon Easterwood Other [employer] Other 05-25-2023 17:30-0400 Body height 162.56 cm Lyndon Easterwood Other [employer] Other 05-25-2023 17:30-0400 Body mass index (BMI) [Ratio] 30.04 kg/m2 Lyndon Easterwood Other [employer] Other 05-25-2023 17:30-0400 Body temperature 98.2 [degF] Lyndon Easterwood Other [employer] Other 05-25-2023 17:30-0400 Body weight 79.38 kg Lyndon Easterwood Other [employer] Other 05-25-2023 17:30-0400 Diastolic blood pressure 72 mm[Hg] Lyndon Easterwood Other [employer] Other 05-25-2023 17:30-0400 Respiratory rate 20 /min Lyndon Easterwood Other [employer] Other 05-25-2023 17:30-0400 SaO2% (BldA) [Mass fraction] 99 % Lyndon Easterwood Other [employer] Other 05-25-2023 17:30-0400 Systolic blood pressure 110 mm[Hg] Lyndon Easterwood Other [employer] Other 03-08-2023 16:13-0400 Body weight 83.92 kg Martina Rodriguez MD, PhD Work Phone: [facility] 03-08-2023 16:13-0400 Diastolic blood pressure 76 mm[Hg] Martina Rodriguez MD, PhD Work Phone: [facility] 03-08-2023 16:13-0400 Systolic blood pressure 116 mm[Hg] Martina Rodriguez MD, PhD Work Phone: [facility] 08-05-2022 16:00-0400 Body height 162.56 cm Lyndon [employer] Other [employer] Other 08-05-2022 16:00-0400 Body mass index (BMI) [Ratio] 32.78 kg/m2 Lyndon [employer] Other [employer] Other 08-05-2022 16:00-0400 Body temperature 98 [degF] Lyndon Easterwood Other [employer] Other 08-05-2022 16:00-0400 Body weight 86.64 kg Lyndon [employer] Other [employer] Other 08-05-2022 16:00-0400 Diastolic blood pressure 76 mm[Hg] Lyndon Easterwood Other [facility] Other 08-05-2022 16:00-0400 Respiratory rate 20 /min Lyndon [employer] Other [employer] Other 08-05-2022 16:00-0400 SaO2% (BldA) [Mass fraction] 99 % Lyndon Dalal Other [employer] Other 08-05-2022 16:00-0400 Systolic blood pressure 122 mm[Hg] Lyndon Dalal [facility] [employer] Other Encounters Encounter Date Encounter Type Care Provider Facility Start: 06-04-2024 End: 06-04-2024 ambulatory LELE MELO Not Available Start: 05-14-2024 End: 05-14-2024 ambulatory DAMI R ROLAN [facility] Start: 05-08-2024 End: 05-08-2024 ambulatory DAMI ROLAN Not Available Start: 04-09-2024 End: 04-09-2024 ambulatory DAMI ROLAN Not Available Start: 04-04-2024 ambulatory Dami R ROLAN Facility: [facility] Start: 03-12-2024 End: 03-12-2024 ambulatory DAMI ROLAN Not Available Start: 02-24-2024 End: 02-24-2024 ambulatory DAMI ROLAN Not Available Start: 12-04-2023 End: 12-04-2023 ambulatory Lyndon Dalal Other [facility] Other Start: 12-04-2023 Encounter by [employer] Lyndonjessica Fallwood [facility] Start: 11-05-2023 End: 11-05-2023 ambulatory Lyndon Dalal Other [facility] Other Start: 11-05-2023 Encounter by [employer] Lyndonjessica Garciaerwood [facility] Start: 10-25-2023 End: 10-25-2023 ambulatory Lyndon John Yoselin Facility:[facility] Start: 10-10-2023 End: 10-10-2023 ambulatory Lyndon Fallwood Other [employer] Other Start: 10-10-2023 Telephone encounter Lyndon Easterwood [facility] Start: 09-26-2023 End: 09-26-2023 ambulatory Lyndon [employer]erwood Other [employer] Other Start: 09-26-2023 Telephone encounter Lyndon Easterwood [facility] Start: 09-18-2023 End: 09-18-2023 ambulatory Lyndon [employer] Other [employer] Other Start: 09-18-2023 Telephone encounter Lyndon Joseerwood [facility] [place] Start: 09-15-2023 End: 09-15-2023 ambulatory LYNDON JOSEWOOD [facility] [employer] Other Start: 09-15-2023 Office outpatient visit 25 minutes Lyndon Joseerwood [facility] Start: 08-18-2023 End: 08-18-2023 ambulatory LYNDON [facility] Facility:[facility] Start: 08-05-2023 Get Medical Advice Martina Rodriguez MD, PhD Work Phone: Endocrinology Comment on above: lab orders Start: 07-22-2023 End: 07-22-2023 ambulatory Lyndon Josewood [facility] [employer] Other Start: 07-22-2023 Telephone encounter Lyndon Fallwood [facility] Start: 07-12-2023 End: 07-12-2023 ambulatory Lyndon [employer]erwood [facility] [employer] Other Start: 07-12-2023 Office outpatient visit 25 minutes Lyndon Easterwood [facility] Start: 07-12-2023 Telephone encounter Lyndon Easterwood [facility] Start: 07-08-2023 End: 07-08-2023 ambulatory SOBEIDA THOMPSON Facility:[facility] Start: 06-27-2023 End: 06-27-2023 ambulatory Lyndon Easterwood [facility] [employer] Other Start: 06-27-2023 Telephone encounter Lyndon Joseelham [facility] Start: 06-21-2023 End: 06-21-2023 ambulatory SOBEIDA THOMPSON Facility:[facility] Start: 06-01-2023 End: 06-01-2023 ambulatory Benjamin BAKER Facility:[facility] Start: 06-01-2023 End: 06-01-2023 ambulatory Bill Kat Facility:[facility] Start: 05-26-2023 End: 05-26-2023 ambulatory LYNDON GARCIANEDA Facility:[facility] Start: 05-25-2023 End: 05-25-2023 ambulatory LYNDON [facility] [employer] Other Start: 05-25-2023 Office [facility] Start: 05-17-2023 End: 05-17-2023 ambulatory Benjamin BAKER Facility:[facility] Start: 05-05-2023 End: 05-05-2023 ambulatory Benjamin BAKER Facility:[facility] Start: 04-15-2023 End: 04-15-2023 ambulatory Benjamin BAKER Facility:[facility] Start: 04-06-2023 End: 04-06-2023 ambulatory MARTINA RODRIGUEZ Facility:[facility] Start: 03-08-2023 End: 03-08-2023 ambulatory MARTINA RODRIGUEZ Facility:[facility] Start: 03-08-2023 End: 03-08-2023 Patient encounter procedure Matrina Rodriguez MD, PhD Work Phone: Endocrinology Comment on above: Vikki's thyroidi tis (Primary Dx) Start: 02-28-2023 End: 02-28-2023 [facility] Other Start: 02-28-2023 Telephone encounter Lyndon Joseelham [facility] Start: 02-21-2023 End: 02-21-2023 ambulatory Lyndon Dalal Facility:[facility] Start: 02-21-2023 End: 02-21-2023 ambulatory TECHNICAL PROJECT MANAGER Lyndon Dalal Work Phone: [facility] Work Phone: Start: 02-21-2023 End: 02-21-2023 Discharged Recurring TECHNICAL PROJECT MANAGER Lyndon Dalal Work Phone: [facility] [place] Work Phone: Start: 08-09-2022 End: 08-09-2022 ambulatory Lyndon Dalal Other [employer] Other Start: 08-09-2022 Telephone encounter Lyndon Dalal [facility] Start: 08-05-2022 End: 08-06-2022 Emergency department patient visit Lyndon Dalal Facility:[facility] Start: 08-05-2022 End: 08-05-2022 ambulatory Lyndon Dalal Other [facility] Other Start: 08-05-2022 Office outpatient visit 40 minutes Lyndon Dalal [facility] Plan of Treatment Date Care Activity Detail Author Start: 08-08-2023 End: 10-08-2023 Thyrotropin [Units/volume] in Serum or Plasma TSH BLD Lab Routine Vikki's thyroiditis Expected: 08/08/2023, Expires: 10/08/2023 [facility] Work Phone: Comment on above: Expected: 08/08/2023 , Expires: 10/08/2023 Start: 08-08-2023 End: 10-08-2023 Thyroxine (T4) free [Mass/volume] in Serum or Plasma T4 FREE/FREE THYROX Lab Routine Vikki's thyroiditis Expected: 08/08/2023, Expires: 10/08/2023 [facility] Work Phone: Comment on above: Expected: 08/08/2023 , Expires: 10/08/2023 Start: 07-07-2023 Urine microalbumin profile [facility] Start: 07-01-2023 Covid-19 Vaccine () Covid-19 Vaccine () [facility] Start: 07-01-2023 Influenza vaccination Influenza Vacc ine (#1) [facility] Start: 03-31-2023 End: 05-31-2023 Thyroglobulin Ab [Units/volume] in Serum or Plasma THYROGLOBULIN AB Lab Routine Vikki's thyroiditis Expected: 03/31/2023, Expires: 05/31/2023 [facility] Work Phone: Comment on above: Expected: 03/31/2023 , Expires: 05/31/2023 Start: 03-31-2023 End: 05-31-2023 THYROID PEROXIDASE ANTIBODY BLOOD THYROID PEROXIDASE ANTIBODY BLOOD Lab Routine Vikki's thyroiditis Expected: 03/31/2023, Expires: 05/31/2023 [facility] Work Phone: Comment on above: Expected: 03/31/2023 , Expires: 05/31/2023 Start: 03-31-2023 End: 05-31-2023 Thyrotropin [Units/volume] in Serum or Plasma TSH BLD Lab Routine Vikki's thyroiditis Expected: 03/31/2023, Expires: 05/31/2023 [facility] Work Phone: Comment on above: Expected: 03/31/2023 , Expires: 05/31/2023 Start: 03-31-2023 End: 05-31-2023 Thyroxine (T4) free [Mass/volume] in Serum or Plasma T4 FREE/FREE THYROX Lab Routine Vikki's thyroiditis Expected: 03/31/2023, Expires: 05/31/2023 [facility] Work Phone: Comment on above: Expected: 03/31/2023 , Expires: 05/31/2023 Start: 03-31-2023 End: 05-31-2023 Triiodothyronine (T3) Free [Mass/volume] in Serum or Plasma T3 FREE BLD Lab Routine Vikki's thyroiditis Expected: 03/31/2023, Expires: 05/31/2023 [facility] Work Phone: Comment on above: Expected: 03/31/2023 , Expires: 05/31/2023 Start: 10-31-2022 DEPRESSION ASSESSMENT DEPRESSION ASS ESSMENT [facility] Start: 2021 PAP TESTING PAP TESTING [facility] Start: 02-02-2021 COVID-19 VACCINE (3 - Booster for Pfizer series) COVID-19 VACCINE (3 - Booster for Pfizer series) [facility] Start: 2018 CHLAMYDIA SCREENING (18-24) CHLAMYDIA SCREENING (18-24) [facility] Start: 2018 GC (GONORRHEA) SCREE MICHELLE (18-24) GC (GONORRHEA) SCREENING (18-24) [facility] Start: 2018 HEPATITIS C SCREENING HEPATITIS C SC REENING [facility] Start: 2018 HIV SCREENING HIV SCREENING [facility] Start: 2016 Meningococcal B Vacc ine: Consider Based On Risk (2 of 2 - Risk Bexsero 2-dose series) Meningococcal B Vaccine: Consider Based On Risk (2 of 2 - Risk Bexsero 2-dose series) [facility] Start: 2016 MENINGOCOCCAL B: Con teletype installer based on risk (2 of 2 - Risk Bexsero 2-dose series) MENINGOCOCCAL B: Consider based on risk (2 of 2 - Risk Bexsero 2-dose series) [facility] Start: 2014 PEDS TO ADULT TRANSI TION ANNUAL ASSESSMENT PEDS TO ADULT TRANSITION ANNUAL ASSESSMENT [facility] Start: 2012 PEDS TO ADULT TRANSI TION INITIAL DISCUSSION PEDS TO ADULT TRANSITION INITIAL DISCUSSION [facility] Immunizations Immunization Date Immunization Notes Care Provider Fa cility 07-19-2022 influenza, injectabl e, quadrivalent, contains preservative Lyndon Easterwood Other [employer] Other 07-19-2022 influenza virus vaccine, unspecified formulation Martina Rodriguez MD, PhD Work Phone: [facility] 12-08-2020 Do not use COVID-19 Pfizer 2 dose Lyndon Easterwood Other [employer] Other 11-17-2020 Do not use COVID-19 Pfizer 2 dose Lyndon Easterwood Other [facility] Other 07-31-2020 influenza, injectabl e, quadrivalent, contains preservative Lyndon Easterwood Other [facility] Other 10-18-2016 influenza, injectabl e, quadrivalent, contains preservative Martina Rodriguez MD, PhD Work Phone: [facility] 08-04-2015 influenza, injectabl e, quadrivalent, contains preservative Martina Rodriguez MD, PhD Work Phone: [facility] 04-23-2014 human papilloma viru s vaccine, quadrivalent Martina Rodriguez MD, PhD Work Phone: [facility] 09-29-2013 human papilloma viru s vaccine, quadrivalent Martina Rodriguez MD, PhD Work Phone: [facility] 07-07-2013 human papilloma viru s vaccine, quadrivalent Martina Rodriguez MD, PhD Work Phone: [facility] 07-07-2013 meningococcal polysaccharide (groups A, C, Y and W-135) diphtheria toxoid conjugate vaccine (MCV4P) Martina Rodriguez MD, PhD Work Phone: [facility] Work Phone: 07-07-2013 tetanus toxoid, redu ollie diphtheria toxoid, and acellular pertussis vaccine, adsorbed Martina Rodriguez MD, PhD Work Phone: [facility] 08-04-2009 influenza virus vaccine, unspecified formulation Martina Rodriguez MD, PhD Work Phone: [facility] 07-05-2008 hepatitis A vaccine, unspecified formulation Martina Rodriguez MD, PhD Work Phone: [facility] 09-09-2007 influenza virus vaccine, unspecified formulation Martina Rodriguez MD, PhD Work Phone: [facility] Work Phone: 06-19-2007 hepatitis A vaccine, unspecified formulation Martina Rodriguez MD, PhD Work Phone: [facility] 06-19-2007 varicella virus vaccine Parth Rodriguez MD, PhD Work Phone: [facility] 09-14-2006 influenza virus vaccine, unspecified formulation Martina Rodriguez MD, PhD Work Phone: [facility] 05-13-2006 diphtheria, tetanus toxoids and acellular pertussis vaccine Martina Rodriguez MD, PhD Work Phone: [facility] Work Phone: 05-13-2006 measles, mumps and rubella virus vaccine Martina Rodriguez MD, PhD Work Phone: [facility] Work Phone: 05-13-2006 poliovirus vaccine, inactivated Martina Rodriguez MD, PhD Work Phone: [facility] Work Phone: 05-13-2006 varicella virus vaccine Parth Rodriguez MD, PhD Work Phone: [facility] Work Phone: 07-26-2005 influenza virus vaccine, unspecified formulation Martina Rodriguez MD, PhD Work Phone: [facility] Work Phone: 07-30-2004 influenza virus vaccine, unspecified formulation Martina Rodriguez MD, PhD Work Phone: [facility] Work Phone: 06-30-2002 diphtheria, tetanus toxoids and acellular pertussis vaccine Martina Rodriguez MD, PhD Work Phone: [facility] Work Phone: 06-30-2002 poliovirus vaccine, inactivated Martina Rodriguez MD, PhD Work Phone: [facility] Work Phone: 04-04-2002 haemophilus influenz ae type b vaccine, HbOC conjugate Martina Rodriguez MD, PhD Work Phone: [facility] Work Phone: 04-04-2002 measles, mumps and rubella virus vaccine Martina Rodrigeuz MD, PhD Work Phone: [facility] Work Phone: 12-16-2001 hepatitis B vaccine, pediatric or pediatric/adolescent dosage Martina Rodriguez MD, PhD Work Phone: [facility] Work Phone: 12-16-2001 pneumococcal conjuga te vaccine, 7 valent Martina Rodriguez MD, PhD Work Phone: [facility] Work Phone: 09-30-2001 pneumococcal conjuga te vaccine, 7 valent Martina Rodriguez MD, PhD Work Phone: [facility] Work Phone: 06-24-2001 diphtheria, tetanus toxoids and acellular pertussis vaccine Martina Rodriguez MD, PhD Work Phone: [facility] Work Phone: 06-24-2001 haemophilus influenz ae type b vaccine, HbOC conjugate Martina Rodriguez MD, PhD Work Phone: [facility] Work Phone: 06-24-2001 pneumococcal conjuga te vaccine, 7 valent Martina Rodriguez MD, PhD Work Phone: [facility] Work Phone: 04-12-2001 diphtheria, tetanus toxoids and acellular pertussis vaccine Martina Rodriguez MD, PhD Work Phone: [facility] Work Phone: 04-12-2001 haemophilus influenz ae type b vaccine, HbOC conjugate Martina Rodriguez MD, PhD Work Phone: [facility] Work Phone: 04-12-2001 poliovirus vaccine, inactivated Martina Rodriguez MD, PhD Work Phone: [facility] Work Phone: 02-03-2001 diphtheria, tetanus toxoids and acellular pertussis vaccine Martina Rodriguez MD, PhD Work Phone: [facility] Work Phone: 02-03-2001 haemophilus influenz ae type b vaccine, HbOC conjugate Martina Rodriguez MD, PhD Work Phone: [facility] Work Phone: 02-03-2001 poliovirus vaccine, inactivated Martina Rodriguez MD, PhD Work Phone: [facility] Work Phone: 2000 hepatitis B vaccine, pediatric or pediatric/adolescent dosage Martina Rodriguez MD, PhD Work Phone: [facility] Work Phone: 2000 hepatitis B vaccine, pediatric or pediatric/adolescent dosage Martina Rodriguez MD, PhD Work Phone: [facility] Work Phone: Payers Date Payer Category Payer Private Health Insurance [id number] 2024 Unknown [id number] 2023 Unknown [id number] 2022 Private Health Insurance [id number] 2022 Self-pay 2020 Private Health Insurance [id number] 2020 Private Health Insurance [id number] 2000 Unknown [id number] [id number] 2000 Unknown [id number] [id number] 2000 Unknown [id number] 2.16.840.1.491868.3.579.2.727 2000 Unknown [id number] 2.16.840.1.668485.3.579.2.727 2000 Unknown [id number] 2.16.840.1.678391.3.579.2.727 2000 Unknown [id number] 2.16.840.1.621902.3.579.2.7 2000 Unknown [id number] 2.16.840.1.409586.3.579.2.727 2000 Unknown [id number] 2.16.840.1.940582.3.579.2.727 2000 Unknown [id number] 2.16.840.1.370138.3.579.2.727 2000 Unknown [id number] 2.16.840.1.497329.3.579.2.7 2000 Unknown [id number] 2.16.840.1.270851.3.579.2.727 2000 Unknown [id number] 2.16.840.1.422360.3.579.2.1286 2000 Unknown [id number] 2.16.840.1.915535.3.579.2.1286 2000 Unknown [id number] 2.16.840.1.977731.3.579.2.9 2000 Unknown [id number] 2.16.840.1.875086.3.579.2.9 2000 Unknown [id number] 2.16.840.1.785289.3.579.2.1259 2000 Unknown [id number] 2.16.840.1.767133.3.579.2.1259 2000 Unknown [id number] 2.16.840.1.313125.3.579.2.1259 Private Health Insurance [facility] [id number] Unknown [id number] [id number] Unknown [facility] Employees [id number] Unknown [id number] [id number] Unknown [id number] [id number] Social History Date Type Detail Facility Start: 03-08-2023 Sex Assigned At N [employer] Other Start: 09-27-2014 End: 08-05-2022 Tobacco smoking status NHIS Never smoked tobacco [facility] History of tobacco use Passive smoker [facility] Start: 03-08-2023 [facility] intake [facility] Start: 2000 Sex Assigned At Not on file C [facility] Start: 2000 Sex Assigned At Female F [facility] Start: 03-08-2023 History of Social function [facility] Clinical Notes 09-09-2009 to 09-15-2023 [...] in office today for physical therapy to [facility]. Discussed continuation of hzmg-uhz-qdelmgr medications as needed. Take muscle relaxer as [...] in office today for physical therapy to [facility]. Discussed continuation of aikm-fsd-futlzqy medications as needed. Take muscle relaxer as [...] that were not corrected during review process. [facility] Other 09-12-2023 Evaluation note* Encounter Date Diagnosis [...] that were not corrected during review process. [facility] Other 07-26-2023 Evaluation note* Encounter Date Diagnosis [...] that were not corrected during review process. [employer] Other 06-18-2023 NoteEchocardiology Procedure Exam Date/Time Accession # Ordering ECG Stress Exercise 04/15/2023 08:43 EDT [id number] Benjamin Baker MD CPT code 99998 Reason for Exam (ECG Stress Exercise) I95.1;Dizziness [...] Signed by: Benjamin Baker MD Transcribed by: angela Technologist: [facility]06-16-2023 Note Echocardiology Procedure Exam Date/Time Accession # Ordering Echo Transthoracic 04/15/2023 09:42 EDT [id number] Benjamin Baker MD Complete CPT code 97641 [id number] Reason for Exam (Echo Transthoracic Complete) I95.9;Hypotension Report [facility] [address] [place] [address] Adult Echocardiogram Report Name: EMMY DALE Study Date: 04/15/2023 09:02 AM BP: 105/71 mmHg Patient Location: [facility] HR: 75 : 2000 Gender: Female Height: 63 in Age: 22 yrs Ethnicity: T Weight: 178 lb Reason For Study: Hypotension BSA: 1.8 m2 History: No cardiac history per patient Ordering Physician: Samuel^Benjamin^John Referring Physician: Benjamin Baker Performed By: Jonelle Alvarez, [facility] Interpretation Summary Ejection Fraction = 60-65%. The [...] Benjamin Baker MD Transcribed by: YOVANI Technologist: [facility]05-09-2023 Note HNO ID: [id number] Author: Martina Rodriguez MD, PhD Service: ? [...] Arthritis Father in blood . was at [facility] when baby thought to be related to [...] monitor thyroid (more content not included)...[facility] 03-08-2023 History of Present illness Narrative* Martina [...] Arthritis Father in blood . was at [facility] when baby thought to be related to [...] [facility]ina Rodriguez MD, PhD [facility]* Encounter Date Diagnosis [...] I would recommend referral to a different lawn care specialist. Patient does have the name of an lawn care specialist that she would like referred to. We will put that referral in today. Dr. Roger Kim - [facility], [facility] February, Dizziness (ICD-10 - R42) [...] that were not corrected during review process. [facility] Other 10-06-2022 Evaluation note* Encounter Date Diagnosis [...] to ER, I highly recommend she call LASER BEAM COLOR SCANNER OPERATOR the second she leaves our office to follow-up.She needs to let them know about her concerns.I explained to her that even though she may assume that her LASER BEAM COLOR SCANNER OPERATOR will not listen her , I still want her to reach out to that office and explained to them her current concerns. She wants to know what the immediate treatment would be and work-up for spinal headache and possible leak however I cannot provide her with this information as I am not LASER BEAM COLOR SCANNER OPERATOR. Jul, Hip pain (ICD-10 - M25.559) While [...] I did discuss with her concerns over awtd-hon-voxosed medications during breast-feeding. Discussed recommendations currently and please bring this up to LASER BEAM COLOR SCANNER OPERATOR as well for further recommendations. Does not [...] I would like her to follow-up with LASER BEAM COLOR SCANNER OPERATOR or go to ER regarding this dizziness and we can follow-up in office after. If nothing comes from an LASER BEAM COLOR SCANNER OPERATOR/spinal headache/spinal leak standpoint, we can order CT [...] that were not corrected during review process. [facility] Other 11-10-2009 History of Past illness Narrative* Problem Noted Date Resolved Date Constipation 09/09/2009 08/28/2014 documented as of this encounter (statuses as of 03/09/2023) [facility] History of Past illness Narrative* Problem Noted Date Diagnosed Date Resolved Date Constipation 09/09/2009 08/28/2014 documented as of this encounter (statuses as of 08/09/2023) [facility] noteNo InformationNortChan [facility] Other Evaluation note* Diagnosis Vikki's thyroiditis- Primary Chronic lymphocytic thyroiditis [facility] noteNo assessment [facility] Work Phone: Evaluation note* Diagnosis Vikki's thyroiditis- Primary Chronic lymphocytic thyroiditis documented in this encounter [facility] general Narrative - Reported* Type Description Date Medical History Asthma Medical History Vasovagal syndrome- childhood (r esolved) Medical History Exercise-induced asthma Medical History Pityriasis rosea Medical History Tachycardia Medical History Vikki's thyroiditis Medical History Pre-eclampsia Surgical History [place] teeth extract 2017 Surgical History Vaginal childbirth 03/2022 Hospitalization History See surgical hx Moped Other History general Narrative - Reported* Type Description Date Medical History Exercise-induced asthma Medical History Pityriasis rosea Medical History Tachycardia Medical History Vikki's thyroiditis Medical History Asthma Medical History Pre-eclampsia Medical History Hypotension Surgical History [place] teeth extract 2017 Surgical History Vaginal childbirth 03/2022 Hospitalization History See surgical hx Moped Other History general Narrative - Reported* Type Description Date Medical History Exercise-induced asthma Medical History Pityriasis rosea Medical History Tachycardia Medical History Vikki's thyroiditis Medical History Asthma Medical History Pre-eclampsia Medical History Hypotension Medical History GERD (gastroesophageal reflux di sease) Surgical History [place] teeth extract 2017 Surgical History Vaginal childbirth 03/2022 Surgical History EGD/colonoscopy 2012 Hospitalization History See surgical hx Moped Other [employer] general Narrative - Reported* Type Description Date Medical History Exercise-induced asthma Medical History Pityriasis rosea Medical History Tachycardia Medical History Vikki's thyroiditis Medical History Asthma Medical History Pre-eclampsia Medical History Hypotension Medical History GERD (gastroesophageal reflux di sease) Medical History Thyromegaly Surgical History [place] teeth extract 2017 Surgical History Vaginal childbirth 03/2022 Surgical History EGD/colonoscopy 2012 Hospitalization History See surgical hx Moped Other [employer] general Narrative - Reported* Type Description Date Medical History Exercise-induced asthma Medical History Pityriasis rosea Medical History Tachycardia Medical History Vikki's thyroiditis Medical History Asthma Medical History Pre-eclampsia Medical History Hypotension Medical History GERD (gastroesophageal reflux di sease) Medical History Thyromegaly Medical History Other idiopathic scoliosis, thor acic region Surgical History [place] teeth extract 2017 Surgical History Vaginal childbirth 03/2022 Surgical History EGD/colonoscopy 2012 Hospitalization History See surgical Moped Other Summary Purpose Family History No Family [...] gastriti s with hemorrhage (K29.01) Referral Organization [facility] Family [employer] Referring Provider First Name Lyndon Referring Provider Last Name [facility] Referring Provider Specialty Nurse Pract itioner Referred Organization [facility] Gastroenterolo gy Referred Provider Patricio Urena Referred Address [address],[facility] [address] [address] ,[place], [place],[address] Referred Provider Specialty Gastroentero logy Referral Priority Routine General [facility] 10:08:56 AM >Received today. [facility] request us to fill out their form and fax to them. They will review the referral and call patient to schedule them. [facility] was fax. [facility]2023 01:31:38 PM >Per telephone encounter, patient wants to try [facility] Gastro doctors. Sent P2P Reason *03/08 Dr. Hawa Kim - [facility], [facility]; [employer]- please send this note with 2 previous notes Diagnosis 1 Vikki's thyroidi tis (E06.3) Referral Organization [facility] [employer] [place] Referring Provider First Name Lyndon Referring Provider Last Name [facility] Referring Provider Specialty Nurse Pract itfelecia Referred Organization [facility] Referred Address [address] [place],[address] Referred Provider Specialty Endocrinolog y Referral Priority Routine General Notes [facility] 023 01:21:05 PM >Received today and referral was fax with the [facility] Form. They will review and call patient to schedule Reason *03/08 Dizzines s- TERRENCE; Please send this note with 2 previous notes Diagnosis 1 Dizziness (R42) Referral Organization [facility] [place] Referring Provider First Name Lyndon Referring Provider Last Name [facility] Referring Provider Specialty Nurse Pract itteor Referred Organization [facility] Referred Provider Jose Dominguez Referred Address [address] [place],[address] Referred Provider Specialty Neurology Referral Priority Routine General Notes Misti Vivas 023 01:26:59 PM >Received today. [facility] request us to fill out their form and attach to Referral and send it to them and they will call patient to schedule. Referral was sent P2P Chief Complaint and Reason for Visit Chief Complaint dizzy Additional Source Comments INFORMATION SOURCE (unrecogn ized section and content) DATE CREATED AUTHOR 08/06/2022 [facility] DATE CREATED AUTHOR AUTHOR'S ORGANIZ ATION 08/20/2023 [facility] DATE CREATED AUTHOR AUTHOR'S ORGANIZ ATION 12/09/2023 [facility] DATE CREATED AUTHOR AUTHOR'S ORGANIZ ATION 04/06/2024 Millan Hansford [facility] DATE CREATED AUTHOR AUTHOR'S ORGANIZ ATION 05/03/2024 Millan Hansford [facility] DATE CREATED AUTHOR AUTHOR'S ORGANIZ ATION 05/18/2024 [facility] DATE CREATED AUTHOR AUTHOR'S ORGANIZ ATION 06/03/2024 Millan [place] [facility] DATE CREATED AUTHOR AUTHOR'S ORGANIZ ATION 06/06/2024 [facility] d[facility] Specialists EPIC REASON FOR VISIT (unrecogniz ed section and content) Reason Comments New Patient Source Comments (unrecognize d section and content) In the event this informatio n is protected by the Federal Confidentiality of Alcohol and Drug Abuse Patient Records regulations: The Federal rules restrict any use of the information to criminally investigate or prosecute any alcohol or drug abuse patient.[facility] the event this information is protected by the Federal Confidentiality of Alcohol and Drug Abuse Patient Records regulations: The Federal rules restrict any use of the information to criminally investigate or prosecute any alcohol or drug abuse patient.[facility] Care Teams (unrecognized sec tion and content) Bearingizer Relationship Specialty Start Date End Date Lyndon Dalal JAMES [address] [address] PCP - General Family Medicine 03/08/23 Lyndon Dalal CNP [address] [address] Referring Family Medicine 03/04/23 Team Status: Active Member Role Status Dates Lyndon Dalal APRN Primary Care Provider Active Team Status: Inactive Member Role Status Dates Lyndon Dalal APRN Primary Care Provider, Attend ing Provider Active Bearingizer Relationship Specialty Start Date End Date Lyndon Dalal CNP [address] [address] PCP - General Family Medicine 03/08/23 Lyndon Dalal CNP [address] [address] Referring Family Medicine 03/04/23 Goals (unrecognized section [...] BE BASED ON THE PRIMARY CLINICAL RECORDS. [facility]. provides no warranty or guarantee of the accuracy or completeness of information in this document.
[2024-06-11 07:13] LABS: Creatinine Urine Random 85.54 mg/dL (20.00-300.00); Protein Creatinine Ratio Urine 0.14; Total Protein Urine Random 11.7 mg/dL (<=11.9)
[2024-06-11 08:01] LABS: Basophils Absolute Auto 0.1 10^3/uL (0.0-0.1); Basophils Percent Auto 0.7 % (0.2-2.0); Eosinophils Absolute Auto 0.2 10^3/uL (0.0-0.7); Eosinophils Percent Auto 2.2 % (0.9-7.0); Hematocrit 36.3 % (36.0-48.0); Hemoglobin 12.2 g/dL (12.0-16.0); Immature Granulocytes Abs Auto 0.03 10^3/uL (0.00-0.03); Immature Granulocytes Pct Auto 0.4 % (0.0-0.5); Lymphocytes Absolute Auto 1.4 10^3/uL (1.2-3.8); Lymphocytes Percent Auto 19.2 % (20.5-60.0); Mean Corpuscular HGB Conc 33.6 g/dL (29.9-35.2); Mean Corpuscular Hemoglobin 30.6 pg (26.7-34.0); Mean Platelet Volume 9.8 fL (9.5-13.5); Monocytes Absolute Auto 0.5 10^3/uL (0.3-0.8); Neutrophils Absolute Auto 5.1 10^3/uL (1.4-6.5); Neutrophils Percent Auto 70.5 % (43.0-75.0); Platelet Count 247 10^3/uL (150-450); Red Blood Count 3.99 10^6/uL (4.20-5.40); Red Cell Distribution Width 13.2 % (11.0-15.0); White Blood Count 7.3 10^3/uL (4.0-11.0)
[2024-06-11 08:57] LABS: Alanine Aminotransferase 19 U/L (14-59); Albumin Globulin Ratio 0.8; Albumin Level 2.9 g/dL (3.4-5.0); Alkaline Phosphatase 56 U/L (46-116); Anion Gap 11.2; Aspartate Amino Transferase 11 U/L (15-37); BUN Creatinine Ratio 10.2; Bilirubin Total 0.8 mg/dL (0.2-1.0); Calcium 8.9 mg/dL (8.5-10.1); Carbon Dioxide 27.7 mmol/L (21.0-32.0); Chloride 102 mmol/L (98-107); Estimated GFR (African America >60 (>=60); Estimated GFR (Non-African Ame >60 (>=60); Globulin 3.5 g/dL; Glucose 111 mg/dL (74-106); Glucose 1 Hour 111 mg/dL (<130); Sodium 138 mmol/L (136-145); Total Protein 6.4 g/dL (6.4-8.2)
[2024-06-11 10:41] LABS: Potassium 2.9 mmol/L (3.5-5.1)
== END 2024-06-11 06:45 | disposition home or self-care (01) ==
LOC: LAB 06:45
PROVIDERS: PCP Family Medicine; Visit Provider Physician Assistant
DX: E03.9 Hypothyroidism, unspecified (principal); Z13.1 Encounter for screening for diabetes mellitus
CPT/HCPCS: 36415; 80053; 82570; 82950; 84156; 85025

== ENCOUNTER 2024-07-05 07:58 | Outpatient (OUT) | payer OTHER, SELFPAY ==
--- NOTE | 2024-07-05 07:59 | US_ITS ---
[place] [id number] Patient Name: EMMY DALE MRN: [id number] date: 2000 Sex: F Assigned Patient Location: [facility] Current Patient Location: [facility] Accession/Order Number: [id number] Exam Date: 07/05/2024 08:01 Report Date: 07/05/2024 09:15 At the request of: LELE ALEJO Procedure: US OB growth EXAMINATION: US OB growth HISTORY: THYROID DISEASE COMPARISON: Ultrasound OB transvaginal 02/24/2024 FINDINGS: Heart Rate: 141 bpm Amniotic Fluid Volume: 9.7 cm; lower normal range. Number: 1 Position: CEPHALIC BIOMETRY: BPD: 6.76 cm; 27 weeks 2 days; 19.10 % HC: 25.89 cm; 28 weeks 1 day; 28.10 % AC: 22.93 cm; 27 weeks 2 days; 25.70 % FL: 5.20 cm; 27 weeks 5 days; 31.20 % EFW: 1041.34 g; 25.50 % FL/AC: 22.68 FL/BPD: 76.92 HC/AC: 1.13 GESTATIONAL AGE: Age by EDC: 27 weeks 6 days [place] by EDC: 2024-09-28 Age by US: 27 weeks 4 days DUKE by US: 2024-09-30 US/US OB growth IMPRESSION: 1. Single live intrauterine with growth detailed above. Electronically authenticated by: ANGELY NUR Date: 07/05/2024 09:15
--- OUTSIDE RECORDS SUMMARY | 2024-07-05 08:09 | XMS_ITS | CCD ---
Author Organization [facility] Care Team Providers Care Director Of Distance Learning Name Role Phone Lyndon Dalal Primary Care Unavailable Juancarlos Maria Attending Unavailable Juancarlos Maria Admitting Unavailable Lyndon Dalal Unavailable Lyndon Dalal CNP Unavailable [phone] Lyndon Dalal CNP Primary Care Provider [phone] ANKIT Dalal Primary Care Provider [phone] ANKIT Dalal Attending Provider LYNDON DALAL Primary [...] Admitting Unavailable Shashank GONGORAy R Attending Unavailable YOSELIN LYNDON Admitting Unavailable LYNDON DALAL Attending Unavailable Bill [...] LYNDON Attending Unavailable FUNMI FARIAS Attending Unavailable ROLAN, DAMI R Referring Unavailable EASTERWOOD, LYNDON Primary Care Unavailable ROLAN, DAMI R Referring Unavailable EASTER[place]OD, LYNDON Primary Care Unavailable ROLAN, DAMI R Referring Unavailable EASTERWOOD, LYNDON Primary Care Unavailable LELE ALEJO Attending Unavailable MELOLELE Admitting Unavailable MELOLELE Attending Unavailable MELOLELE L Admitting Unavailable ROLAN, DAMI Attending Unavailable ROLAN, DAMI Attending Unavailable ROLAN, DAMI Attending Unavailable MELO, LELE Attending Unavailable ROLAN, DAMI Attending Unavailable Allergies Allergy Classification Reported Allergen(s) Allergy Type Date of Onset Reaction(s) Facility Sulfonamides (antibiotic) (1 source) Sulfonamides (Antibiotic); Translations: [sulfa drugs] Drug Allergy [facility] Repository (6 sources) Sulfonamides (Antibiotic); Translations: [SULFA (SULFONAMIDE ANTIBIOTICS)] Drug allergy (disorder) 5 [facility] Repository (2 sources) Sulfonamide Drug allergy [facility] [place] Other (14 sources) Substance with sulfonamide structure and antibacterial mechanism of action (substance) Drug allergy 5 [facility] (2 sources) Sulfonamides (Antibiotic); Translations: [sulfa drugs] Propensity to adverse reactions (disorder) [facility] Repository Medications Current Medications Medication Drug [...] by fredi th every twenty-four hours Biotin 84915 MCG 1 tablet Orally Once a day OTC Not-Taking/PRN take 1 tablet by fredi th every twenty-four hours Biotin 03466 MCG 1 tablet Orally Once a day OTC Not-Taking take 1 tablet by mouth once [place]ia [place] car[place] y Biotin 73309 MCG 1 tablet Orally Once a day OTC Not-Taking BIOTIN ORAL Take by mouth q 24 HR. 0 Active take 1 tablet by mouth once [place] y Biotin 43741 MCG 1 tablet Orally Once a day [...] Probiotic OTC, daily Active lactobacillus rhamnosus gg [id number] unt oral capsule (1 source) Start: 5 End: 3 take 1 capsule by mouth once daily lactobacillus rhamnosus (CULTURELLE) 10 billion cell capsule Indications: Abdominal pain Take 1 capsule by mouth once daily. 30 capsule 2 04/30/2015 03/08/2023 Discontinued Comment on above: Take 1 capsule by mo [facility] once daily. levothyroxine sodium 0.025 mg [...] Comment on above: Take 1 capsule by [facility] once daily. pantoprazole 20 mg delayed release [...] during the puerperium Episodic Other complications of (2 sources) Obesity complicating , unspecified trimester; Translations: [Obesity complicating , unspecified trimester] Onset: 05-14-2024 Chronic Other complications of (2 sources) Endocrine, nutritional and metabolic diseases complicating , [...] conditions (not mental disorders or infectious disease) (3 sources) Encounter for other specified screening; Translations: [...] Test Name Value Interpretation Reference Range Facility [facility] 06-25-2024 Albumin [Mass/Vol] 3.6 g/dL Normal 3.3-5.0 [facility] Comment on above: Performed By: #### 2 [id number] #### [facility] [address] [place] [address] Albumin/Globulin (S) [Mass conc ratio] 1.3 Normal 1.1-2.2 [facility] Comment on above: Performed By: #### 2 607559 #### [facility] [address] [place] [address] ALP [Catalytic activity/Vol] 63 Int._Unit/L Normal 21-98 [facility] Comment on above: Performed By: #### 2 156890 #### [facility] [address] [place] [address] ALT No additional P-5'-P [Catalytic activity/Vol] 13 Int._Unit/L Normal 6-46 [facility] Comment on above: Performed By: #### 2 407221 #### [facility] [address] [place] [address] Anion gap [Moles/Vol] 10 mmol/L Normal 6-16 [facility] Comment on above: Performed By: #### 2 242354 #### [facility] [address] [place] [address] AST [Catalytic activity/Vol] 12 Int._Unit/L Normal 5-43 [facility] Comment on above: Performed By: #### 2 067284 #### [facility] [address] [place] [address] Bilirubin [Mass/Vol] 0.7 mg/dL Normal 0.0-1.1 [facility] Comment on above: Performed By: #### 2 294872 #### [facility] [address] [place] [address] Calcium [Mass/Vol] 8.6 mg/dL Low 8.9-11.1 [facility] Comment on above: Performed By: #### 2 762642 #### [facility] [address] [place] [address] Chloride [Moles/Vol] 104 mmol/L Normal 101-111 [facility] Comment on above: Performed By: #### 2 842481 #### [facility] [address] [place] [address] CO2 [Moles/Vol] 25 mmol/L Normal 21-31 [facility] Comment on above: Performed By: #### 2 132426 #### [facility] [address] [place] [address] Creatinine [Mass/Vol] 0.4 mg/dL Low 0.5-1.3 [facility] Comment on above: Performed By: #### 2 466309 #### [facility] [address] [place] [address] Globulin (S) [Mass/Vol] 2.8 g/dL Normal 1.4-4.0 [facility] Comment on above: Performed By: #### 2 046208 #### [facility] [address] [place] [address] Glucose [Mass/Vol] 97 mg/dL Normal 55-199 [facility] Comment on above: Performed By: #### 2 438005 #### [facility] [address] [place] [address] Potassium [Moles/Vol] 3.4 mmol/L Low 3.5-5.3 [facility] Comment on above: Performed By: #### 2 110179 #### [facility] [address] [place] [address] Protein [Mass/Vol] 6.4 g/dL Normal 6.0-7.8 [facility] Comment on above: Performed By: #### 2 113947 #### [facility] [address] [place] [address] Sodium [Moles/Vol] 136 mmol/L Normal 135-145 [facility] Comment on above: Performed By: #### 2 380480 #### [facility] [address] [place] [address] Urea nitrogen [Mass/Vol] 8 mg/dL Normal 5-21 [facility] Comment on above: Performed By: #### 2 498023 #### [facility] [address] [place] [address] Urea nitrogen/Creatini ne [Mass ratio] 20 No Units Normal 10-20 [facility] Comment on above: Performed By: #### 2 168326 #### [facility] [address] [place] [address] TSHon 06-25-2024 TSH Qn 3.63 m[IU]/L Normal 0.34-5.60 [facility] Comment on above: Performed By: #### 2 138612 #### [facility] [address] [place] [address] eGFRon 06-25-2024 eGFR 142 mL/min/1.73 m2 Normal >=59 [facility] Comment on above: Order Comment: Order added by Discern Expert. Performed By: #### 1 4750039 #### [facility] [address] [place] [address] TSHon 05-31-2024 TSH Qn 1.99 m[IU]/L Normal 0.34-5.60 [facility] Comment on above: Performed By: #### 2 372817 #### [facility] [address] [place] [address] TSHon 05-01-2024 TSH Qn 1.54 m[IU]/L Normal 0.34-5.60 [facility] Comment on above: Performed By: #### 2 786285 #### [facility] [address] [place] [address] Consent for Treatmenton 060 Consent for Treatment [id number]#1.00TIF F Normal [facility] Physician Orderon 04-04-2024 Physician Order [id number]#1.00TI FF Normal [facility] TSHon 04-04-2024 TSH Qn 2.73 m[IU]/L Normal 0.34-5.60 [facility] Comment on above: Performed By: #### 2 777525 #### [facility] [address] [place] [address] XR Spine Cervical 4 or 5 Vie wson 09-16-2023 XR Spine Cervical 4 or 5 Views Exam Date/Time: 09/15/2023 14:47 EST Reason for Exam: [id number] Report IMPRESSION: NEGATIVE CERVICAL SPINE. CLINICAL HISTORY: S16.1XXA. Neck and back pain. COMMENT: 5 views. The cervical spine appears normal without evidence of fracture or subluxation. Ordering Provider: LNYDON DALAL FINAL REPORT Dictated: 09/16/2023 8:02 am Maximo Kurtz M.D. Signed (Electronic Signature): 09/16/2023 8:02 am Signed by: Maximo Kurtz M.D. Transcribed by: MORENO Technologist: JOANNE Technical Comments Radiation Dose: Ka,r in mGy = . DAP = . Normal [facility] XR Spine Thoracic 3 Viewson 09-16-2023 [...] mGy = . DAP = . Normal [facility] Physician Orderon 09-15-2023 Physician Order [id number]#1.00T IFF Normal [facility] T4 Free SerPl-mCncon 023 Free T4 [Mass/Vol] 1.2 ng/dL Normal 0.9-1.7 [facility] Comment on above: Order Comment: Rozina florez Type: BLOOD SPECIMEN Ordering Facility: [facility] Address: [address] [place] [address] Performed By: #### 3 024-7, 3016-3 #### [facility] CLIA [id number] [facility] [address] STATES OF [facility] TSH SerPl-aCncon 08-18-2023 TSH Qn 2.280 m[IU]/L Normal 0.270-4.200 [facility] Comment on above: Order Comment: Rozina florez Type: BLOOD SPECIMEN Ordering Facility: [facility] Address: [address] [place] [address] Result Comment: If t he patient is , TSH reference range varies by gestational period: First Trimester (weeks 9-12): 0.180-2.990 mIU/L Second Trimester: 0.110-3.980 mIU/L Third Trimester: 0.480-4.710 mIU/L Noe Ramon et al. A Practical Approach for the Verifications and Determination of Site- and Trimester-Specific Reference Intervals for Thyroid Function tests in . Thyroid, 2019:29:3:412-420. Gregor E, et al. 2017 Guidelines of the [place] [employer] Association for the Diagnosis and Management of Thyroid Disease during and the . Thyroid, 2017:27:3:315-389. Performed By: #### 3 024-7, 3016-3 #### [facility] CLIA [id number] [address] [place] Consent for Treatmenton Consent for Treatment [id number]#1.00CD: 127 Normal [facility] US Renalon 07-08-2023 US Renal Exam Date/Time: [...] Mendoza M.D. Transcribed by: MORENO Technologist: EMILY Normal [facility] XR Abdomen 1 Viewon 07-08-20 XR Abdomen 1 View Exam Date/Time: 07/08/2023 [...] mGy = . DAP = . Normal [facility] Ambulatory Visit Summaryon 0 06-21-2023 Ambulatory Visit Summary EMMY DALE :2000 Visit Date:06/21/2023 Ambulatory Visit Instructions Your Diagnosis Urinary crystals Recurrent UTI Urethral stricture Gross hematuria Tests Performed Urnls Dip Stick Auto w/o Microscopy POC 27264 Your Care Team Attending Physician - SOBEIDA [...] Comments: will call pt. Where: [address] [place] [address] You Need to Complete the Following US Renal, *Est. 06/21/23 due within 1 months, Routine, Order for future visit, Transport Mode: Ambulatory, Reason: Other (please specify), Reason: Kidney Stones, No, Kidney stones, pp_set_radiology_subspec ialty, [facility] [place] XR Abdomen 1 View, *Est. 06/21/23 due within 1 months, Routine, Order for future visit, Transport Mode: Ambulatory, Reason: Kidney stone, No, Kidney stones, pp_set_radiology_subspec ialty, [facility] - [place] Medications What How Much When Instructions Unchanged busPIRone (busPIRone 10 mg Tab) 2 times a day Contact prescribing physician if questions or concerns Unchanged levothyroxine (Synthroid 25 mcg(0.025 mg) Tab) Every day Contact prescribing physician if questions or concerns Test Results Urnls Dip Stick Auto w/o Microscopy POC 96521 (06/21/2023) Bilirubin Urine Dipstick - Negative Blood Urine Dipstick - Negative Glucose Urine Dipstick - Negative Ketones Urine Dipstick - Negative Leukocytes Urine Dipstick - Negative Nitrite Urine Dipstick - Negative Protein Urine Dipstick - Negative Specific [place] Urine Dipstick - 1.010 Urine Appearance Urine [...] ? 8 oz (237 mL) of milk, rrycrvq-xgsgygdmkpix-pmb ry milk, and calcium-fortifiedfruit juice. Calcium-fortified means [...] wheat cereals. (more content not included)... Normal [facility] Patient Educationon 06-21-20 Patient Education Nephrology [...] ? 8 oz (237 mL) of milk, diwafrt-ugongvrapmue-hiq ry milk, and calcium-fortifiedfruit juice. Calcium-fortified means [...] Spinach (cooked), rhubarb, beets, sweet potatoes, and Liberian chard. ? Peanuts. ? Potato chips, kyrgyz fries, and baked potatoes with skin on. ? Nuts and nut products. ? Chocolate. ? If you regularly take a diuretic medicine, make sure to eat at least 1 or 2 servings of fruits or vegetables that are high in potassium each day. These include: ? Avocado. ? Banana. ? Buffalo, prune, carrot, or tomato juice. ? Baked [...] fish oil, or vitamin B6. ? Take jvao-wqz-mccqlzs and prescription medicines only as told by your health care provider. These include supplements. What foods should I limit? Limit your in (more content not included)... Normal [facility] Urology Office/Clinic Noteon 06-21-2023 Urology Office/Clinic Note [...] pass. Will send CORDELIA and KUB to [facility] to see if any persistent hydro/any remaining [...] Urnls Dip Stick Auto w/o Microscopy POC 21283 4. Gross hematuria (R31.0: Gross hematuria) CORDELIA [...] acknowledges understanding. Follow-up With When Contact Information DONNA FORD, SOBEIDA Banegas, URL [address] [place] [address] Additional Instructions: will call pt. Patient Education Dietary Guidelines to Help Prevent Kidney Stones Laura Miles, personally scribed for Sobeida Thompson PA-C on [...] History Cystour (more content not included)... Normal [facility] Comment on above: Result Comment: Elec tronically Signed By: SOBEIDA THOMPSON PA-C\.br\Date and Time Signed: 06/21/23 12:44 EDT\.br\Electronically Co-Signed By: Laura Lou\.br\Date and Time Co-Signed: 06/21/23 12:25 EDT PAP [id number] 06-07-2023 Cytology report Cyto stain Doc (Cvx/Vag) Note Invalid Interpretation Code [facility] Comment on above: Result Comment: TEST S RESULT FLAG UNITS REF RANGE LAB Clinician Provided Cytology Information Source.............Endocervix No. of containers..01 ThinPrep Vial DIAGNOSIS: 01 NEGATIVE FOR INTRAEPITHELIAL LESION OR MALIGNANCY. Specimen adequacy: 01 Satisfactory for evaluation. Endocervical and/or squamous metaplastic cells (endocervical component) are present. Performed by: Clif Bolaños, Manager Garden (ASCP) . 01 Note: Note 01 The [...] High,A-Abnormal,AA-Critical Abnormal Performed at: 01 [facility] [address] [place] [address] Lisa Ellington MD, Performed at: [facility] [address] [place], [place] [id number] MD Chandana Gonzalez Performed By: #### 3 [id number] ####[facility] [address] [place] [address] Consent for Treatmenton Consent for Treatment [id number]: 127 Normal Monty [facility] Heart and Vascular Office/Cl inic Noteon [...] but unfortunately she was called by the attendant child activity and told that it was not working. [...] her Sy (more content not included)... Normal [facility] Comment on above: Result Comment: Elec tronically Signed By: SAMUEL VELAZQUEZ, Benjamin Lopez\.br\Date and Time Signed: 06/01/23 14:25 EDT PAP [id number] 06-01-2023 Collection Technique BRUSH-SPATULA Normal [facility] Comment on above: Performed By: #### 3 [id number] ####[facility] [address] [place] [address] Gynecological Body Site ENDOCERVIX Normal [facility] Comment on above: Performed By: #### 3 [id number] ####[facility] [address] [place] [address] Physician Orderon 06-01-2023 Physician Order [id number]#1.00CD :127 [facility] Physician Order [id number]#1.00CD: 127 [facility] C Urineon 05-27-2023 Bacteria identified Cx Nom (U) Microbiology PROCEDURE: Urine Culture [R1] SOURCE: U CleanCatch BODY SITE: COLLECTED DATE/TIME: 05/25/2023 15:25 EDT RECEIVED DATE/TIME: 05/25/2023 16:39 EDT START DATE/TIME: 05/25/2023 16:39 EDT FREE TEXT SOURCE: YOSELIN RAMIREZ, LYNDON DALAL CNP, LYNDON FINAL REPORTS Final Report [] [...] Locations R1: This test was performed at: [facility], [address] [place] [address], [address] , , Normal [facility] Comment on above: Performed By: #### 2 [id number] ####[facility] [address] [place] [address] T4 Free SerPl-mCncon 023 Free T4 [Mass/Vol] 1.2 ng/dL Normal 0.9-1.7 [facility] Comment on above: Order Comment: Specolivier florez Type: BLOOD SPECIMEN Ordering Facility: [facility] Address: [address] [place], [place] [id number] Performed By: #### 3 024-7, 3016-3 #### [facility] CLIA [id number] [address] [facility] [id number] STATES OF [facility] TSH SerPl-aCncon 05-26-2023 TSH Qn 2.260 m[IU]/L Normal 0.270-4.200 [facility] Comment on above: Order Comment: Rozina men Type: BLOOD SPECIMEN Ordering Facility: [facility] Address: [address] [place], [place] [id number] Result Comment: If t he patient is , TSH reference range varies by gestational period: First Trimester (weeks 9-12): 0.180-2.990 mIU/L Second Trimester: 0.110-3.980 mIU/L Third Trimester: 0.480-4.710 mIU/L Noe Ramon et al. A Practical Approach for the Verifications and Determination of Site- and Trimester-Specific Reference Intervals for Thyroid Function tests in . Thyroid, 2019:29:3:412-420. Gregor E, et al. 2017 Guidelines of the [place] Thyroid Association for the Diagnosis and Management of Thyroid Disease during and the . Thyroid, 2017:27:3:315-389. Performed By: #### 3 024-7, 3016-3 #### [facility] CLIA [id number] [address] [place] [address] Consent for Treatmenton 05-01 Consent for Treatment [id number]#1.00CD: 127 Normal [facility] Physician Orderon 05-25-2023 Physician Order [id number]#1.00CD:12 7 Normal [facility] Urinalysison 05-25-2023 Bacteria LM Ql (Urine sed) 2+ /HPF Abnormal Trace [facility] Comment on above: Performed By: #### 1 [id number] ####[facility] [address] [place] [address] Bilirubin Ql (U) Negative Normal Negative [facility] Comment on above: Performed By: #### 1 1428565 ####[facility] [address] [place] [address] Clarity (U) SL CLOUDY Abnormal Clear [facility] Comment on above: Performed By: #### 1 1042673 ####[facility] [address] [place] [address] Color (U) YELLOW Normal Yellow [facility] Comment on above: Performed By: #### 1 [id number] ####[facility] [address] [place] [address] Crystals LM Ql (Urine sed) Present Normal [facility] Comment on above: Performed By: #### 1 [id number] ####[facility] [address] [place] [address] Epithelial cells.squamous LM.HPF (Urine sed) [#/Area] 0-2 Normal 0-2 [facility] Comment on above: Performed By: #### 1 4984631 ####[facility] [address] [place] [address] Glucose Test strip (U) [Mass/Vol] Negative Normal Negative [facility] Comment on above: Performed By: #### 1 5879834 ####[facility] [address] [place] [address] Hemoglobin Ql (U) 2+ Abnormal Negative [facility] Comment on above: Performed By: #### 1 5120942 ####[address] [address] Ketones (U) [Mass/Vol] Negative Normal Negative [facility] Comment on above: Performed By: #### 1 9802517 ####[address] [address] [place].plasma/Li thium.RBC (Bld) [Mass ratio] 0-3 Normal 0-3 [facility] Comment on above: Performed By: #### 1 7870035 ####[facility] [address] [place] [address] Mucus Ql (Urine sed) TRACE Normal [facility] Comment on above: Performed By: #### 1 7696314 ####[address] [address] Nitrite Ql (U) Positive Abnormal Negative [facility] Comment on above: Performed By: #### 1 4422790 ####[facility] [address] [place] [address] pH (U) 6.0 [pH] Invalid Interpretation Code 5.0-9.0 [facility] Comment on above: Performed By: #### 1 [id number] ####[facility] [address] [place] [address] Protein (U) [Mass/Vol] Negative Normal Negative [facility] Comment on above: Performed By: #### 1 7968998 ####[facility] [address] [place] [address] Specific gravity (U) [Rel density] 1.010 Invalid Interpretation Code 1.005-1.030 [facility] Comment on above: Performed By: #### 1 9298786 ####[address] [address] Type of Urine collection method Clean Catch [facility] Comment on above: Performed By: #### 1 [id number] ####[place] [address] Urobilinogen Qn (U) 0.2 {Catarino'U}/dL Normal 0.0-1.0 [facility] Comment on above: Performed By: #### 1 3761708 ####[place] [address] WBC Auto Ql (U) 1+ Abnormal Negative [facility] Comment on above: Performed By: #### 1 1569281 ####[facility] [address] [place], [place] [address] WBC LM.HPF (Urine sed) [#/Area] 26-30 Abnormal 0-5 [facility] Comment on above: Performed By: #### 1 8938234 ####[place] [address] Consent for Treatmenton 04-30 Consent for Treatment [id number]#1.00CD: 127 Normal [facility] Consent for Treatmenton Consent for Treatment [id number]#1.00CD: 127 Normal [facility] Heart and Vascular Office/Cl inic Noteon [...] 1 month. (more content not included)... Normal [facility] Comment on above: Result Comment: Elec tronically Signed By: Samuel VELAZQUEZ, Benjamin Le.br\Date and Time Signed: 05/05/23 16:11 EDT Physician Orderon 05-05-2023 Physician Order [id number]#1.00CD :127 Normal [facility] Stress EKG Tracingson 2022 Stress EKG Tracings [id number]#1.00CD: 127 Normal [facility] Consent for Treatmenton 03-31 Consent for Treatment [id number]#1.00CD: 127 Normal [facility] T3Free SerPl-mCncon 04-06-20 23 Free T3 [Mass/Vol] 3.3 pg/mL Normal 2.3-4.1 [facility] Comment on above: Order Comment: Speci men Type: BLOOD SPECIMEN Ordering Facility: [facility] Address: [address] [place] [address] Performed By: #### 3 051-0, 3024-7, 3016-3 #### [facility] CLIA [id number] [address] [place] [address] [place] T4 Free SerPl-mCncon 023 Free T4 [Mass/Vol] 1.4 ng/dL Normal 0.9-1.7 [facility] Comment on above: Order Comment: Speci men Type: BLOOD SPECIMEN Ordering Facility: [facility] Address: [address] [place] [address] Performed By: #### 3 051-0, 3024-7, 3016-3 #### [facility] CLIA [id number] [address] [place] [address] [place] THYROGLOBULIN ABon 3 Thyroglobulin Ab Qn 1.8 [IU]/mL Normal <4.0 [facility] Comment on above: Order Comment: Speci men Type: BLOOD SPECIMEN Ordering Facility: [facility] Address: [address] [place] [address] Result Comment: The Thyroglobulin Antibody test was performed using the [employer] Unicel DXI paramagnetic particle chemiluminescent immunoassay method. Results obtained with different assay methods or kits cannot be used interchangeably. Performed By: #### T JASON #### [facility] CLIA [id number] OF [facility] THYROID PEROXIDASE ANTIBODY BLOODon 04-06-2023 [place] Qn 4572.0 [IU]/mL High <5.6 [facility] Comment on above: Order Comment: Rozina florez Type: BLOOD SPECIMEN Ordering Facility: [facility] Address: [address] [place] [address] Result Comment: Thyr oid Peroxidase Antibody test is used as an aid in diagnosis of autoimmune thyroid disease. Clinical correlation is required. Performed By: #### M ICRO #### [facility] CLIA [id number] [address] [place] [address] [place] TSH SerPl-aCncon 04-06-2023 TSH Qn 6.050 m[IU]/L High 0.270-4.200 [facility] Comment on above: Order Comment: Rozina florez Type: BLOOD SPECIMENOrdering Facility: [facility] Address: [address] [place] [address] Result Comment: If t he patient is , TSH reference range varies by gestational period: First Trimester (weeks 9-12): 0.180-2.990 mIU/L Second Trimester: 0.110-3.980 mIU/L Third Trimester: 0.480-4.710 mIU/L Noe Ramon et al. A Practical Approach for the Verifications and Determination of Site- and Trimester-Specific Reference Intervals for Thyroid Function tests in . Thyroid, 2019:29:3:412-420. Gregor Banegas, et al. 2017 Guidelines of the [place] [employer] for the Diagnosis and Management of Thyroid Disease during and the . Thyroid, 2017:27:3:315-389. Performed By: #### 3 051-0, 3024-7, 3016-3 ####[facility] [id number] [facility] [id number] [address] [place] OF [facility] CNOVon 03-08-2023 CNOV Office Visit (ENDOLN ) -------- EMMY DALE ([id number]) 1 F Date Time Provider Department 03/08/23 4:20 PM MARTINA RODRIGUEZ ENDOMANAV During your visit today, we recorded the [...] Arthritis Father in blood . was at [facility] when baby thought to be related to [...] involuntary motions. (more content not included)... Normal [facility] Vital Signs Date Time Vital Sign Value Performing Clinician Facility 09-15-2023 13:30-0500 Body height 162.56 cm [employer] Other [facility] Other 09-15-2023 13:30-0500 Body mass index (BMI) [Ratio] 30.21 kg/m2 [facility] Other [facility] Other 09-15-2023 13:30-0500 Body weight 79.83 kg Lyndon [employer] Other [facility] Other 09-15-2023 13:30-0500 Diastolic blood pressure 68 mm[Hg] [employer] Other [facility] Other 09-15-2023 13:30-0500 Respiratory rate 18 /min [employer] Other [facility] Other 09-15-2023 13:30-0500 SaO2% (BldA) [Mass fraction] 99 % [employer] Other [facility] Other 09-15-2023 13:30-0500 Systolic blood pressure 118 mm[Hg] Lyndon Easterwood Other [facility] Other 07-12-2023 09:15-0400 Body height 162.56 cm Lyndon Easterwood Other [facility] Other 07-12-2023 09:15-0400 Body mass index (BMI) [Ratio] 29.86 kg/m2 Lyndon Easterwood Other [facility] Other 07-12-2023 09:15-0400 Body temperature 98.6 [degF] Lyndon Easterwood Other [facility] Other 07-12-2023 09:15-0400 Body weight 78.93 kg Lyndon Easterwood Other [facility] Other 07-12-2023 09:15-0400 Diastolic blood pressure 70 mm[Hg] Lyndon Easterwood Other [facility] Other 07-12-2023 09:15-0400 Respiratory rate 20 /min Lyndon Easterwood Other [facility] Other 07-12-2023 09:15-0400 SaO2% (BldA) [Mass fraction] 98 % Lyndon Easterwood Other [facility] Other 07-12-2023 09:15-0400 Systolic blood pressure 112 mm[Hg] Lyndon Easterwood Other [facility] Other 05-25-2023 17:30-0400 Body height 162.56 cm Lyndon Easterwood Other [facility] Other 05-25-2023 17:30-0400 Body mass index (BMI) [Ratio] 30.04 kg/m2 Lyndon Easterwood Other [facility] Other 05-25-2023 17:30-0400 Body temperature 98.2 [degF] Lyndon Easterwood Other [facility] Other 05-25-2023 17:30-0400 Body weight 79.38 kg Lyndon Easterneda Other [facility] Other 05-25-2023 17:30-0400 Diastolic blood pressure 72 mm[Hg] Lyndon Easterwood Other [facility] Other 05-25-2023 17:30-0400 Respiratory rate 20 /min Lyndon Easterwood Other [facility] Other 05-25-2023 17:30-0400 SaO2% (BldA) [Mass fraction] 99 % Lyndon Easterwood Other [facility] Other 05-25-2023 17:30-0400 Systolic blood pressure 110 mm[Hg] Lyndon Easterwood Other [facility] Other 03-08-2023 16:13-0400 Body weight 83.92 kg Martina Rodriguez MD, PhD Work Phone: [facility] 03-08-2023 16:13-0400 Diastolic blood pressure 76 mm[Hg] Martina Rodriguez MD, PhD Work Phone: [facility] 03-08-2023 16:13-0400 Systolic blood pressure 116 mm[Hg] Martina Rodriguez MD, PhD Work Phone: [facility] 08-05-2022 16:00-0400 Body height 162.56 cm Lyndon Dalal Other [facility] Other 08-05-2022 16:00-0400 Body mass index (BMI) [Ratio] 32.78 kg/m2 Lyndon Dalal Other [facility] Other 08-05-2022 16:00-0400 Body temperature 98 [degF] Lyndon Dalal Other [facility] Other 08-05-2022 16:00-0400 Body weight 86.64 kg Lyndon Dalal Other [facility] Other 08-05-2022 16:00-0400 Diastolic blood pressure 76 mm[Hg] Lyndon Joseerneda Other [facility] Other 08-05-2022 16:00-0400 Respiratory rate 20 /min Lyndon Dalal Other [facility] Other 08-05-2022 16:00-0400 SaO2% (BldA) [Mass fraction] 99 % Lyndon Dalal Other [facility] Other 08-05-2022 16:00-0400 Systolic blood pressure 122 mm[Hg] Lyndon Easterwood Other [facility] Other Encounters Encounter Date Encounter Type Care Provider Facility Start: 06-25-2024 End: 06-25-2024 ambulatory DAMI GONGORA Not Available Start: 06-25-2024 End: 06-25-2024 ambulatory LELE ALEJO Facility:[facility] Start: 06-12-2024 End: 06-12-2024 ambulatory DAMI GONGORA [facility] Start: 06-04-2024 End: 06-04-2024 ambulatory LELE ALEJO Not Available Start: 05-14-2024 End: 05-14-2024 ambulatory DAMI R ROLAN [facility] Start: 05-08-2024 End: 05-08-2024 ambulatory DAMI ROLAN Not Available Start: 04-09-2024 End: 04-09-2024 ambulatory DAMI ROLAN Not Available Start: 04-04-2024 ambulatory Dami R ROLAN Facility: [facility] Start: 03-12-2024 End: 03-12-2024 ambulatory DAMI ROLAN Not Available Start: 02-24-2024 End: 02-24-2024 ambulatory DAMI ROLAN Not Available Start: 12-04-2023 End: 12-04-2023 ambulatory Lyndon Joseerwood Other [facility] Other Start: 12-04-2023 Encounter by [employer] Lyndonjessica Garciaerwood [facility] Start: 11-05-2023 End: 11-05-2023 ambulatory Lyndon Easterwood Other [facility] Other Start: 11-05-2023 Encounter by [employer] Lyndon Garciaerwood [facility] Start: 10-25-2023 End: 10-25-2023 ambulatory Lyndon John Garciaerwood Facility:[facility] Start: 10-10-2023 End: 10-10-2023 ambulatory Lyndon Easterwood Other [facility] Other Start: 10-10-2023 Telephone encounter Lyndon Joseerwood [facility] Start: 09-26-2023 End: 09-26-2023 ambulatory Lyndon Easterwood Other [facility] Other Start: 09-26-2023 Telephone encounter Lyndon Joseerwood [facility] Start: 09-18-2023 End: 09-18-2023 ambulatory Lyndon Easterwood Other [facility] Other Start: 09-18-2023 Telephone encounter Lyndon Fallwood [facility] Start: 09-15-2023 End: 09-15-2023 ambulatory LYNDON [facility] [employer] Other Start: 09-15-2023 Office outpatient visit 25 minutes Lyndon Falloceano [facility] Start: 08-18-2023 End: 08-18-2023 [facility] Start: 08-05-2023 Get Medical Advice Martina Rodriguez MD, PhD Work Phone: Endocrinology Comment on above: lab orders Start: 07-22-2023 End: 07-22-2023 ambulatory Lyndon [facility] Other [facility] Other Start: 07-22-2023 Telephone encounter Lyndon Dalal [facility] [employer] Start: 07-12-2023 End: 07-12-2023 [facility] Other Start: 07-12-2023 Office outpatient visit 25 minutes Lyndon Fallwood [facility] Start: 07-12-2023 Telephone encounter Lyndon Fallwood [facility] Start: 07-08-2023 End: 07-08-2023 ambulatory SOBEIDA THOMPSON Facility:[facility] Start: 06-27-2023 End: 06-27-2023 ambulatory Lyndon Dalal Other [facility] Other Start: 06-27-2023 Telephone encounter Lyndonjessica Garciaerwood [facility] Start: 06-21-2023 End: 06-21-2023 ambulatory SOBEIDA THOMPSON Facility:[facility] Start: 06-01-2023 End: 06-01-2023 ambulatory Benjamin BAKER Facility:[facility] Start: 06-01-2023 End: 06-01-2023 ambulatory Bill Kat Facility:[facility] Start: 05-26-2023 End: 05-26-2023 ambulatory LYNDON JOSENEDA Facility:[facility] Start: 05-25-2023 End: 05-25-2023 [facility] [employer] [facility] Start: 05-25-2023 Office outpatient visit 15 minutes Lyndon [facility] Start: 05-17-2023 End: 05-17-2023 ambulatory Benjamin BAKER Facility:[facility] Start: 05-05-2023 End: 05-05-2023 ambulatory Benjamin BAKER Facility:[facility] Start: 04-15-2023 End: 04-15-2023 ambulatory Benjamin BAKER Facility:[facility] Start: 04-06-2023 End: 04-06-2023 ambulatory MARTINA RODRIGUEZ Facility:[facility] Start: 03-08-2023 End: 03-08-2023 ambulatory MARTINA RODRIGUEZ Facility:[facility] Start: 03-08-2023 End: 03-08-2023 Patient encounter procedure Martina Rodriguez MD, PhD Work Phone: Endocrinology Comment on above: Vikki's thyroidi tis (Primary Dx) Start: 02-28-2023 End: 02-28-2023 [facility]ulatory [facility] [employer] Other Start: 02-28-2023 Telephone encounter Lyndon Dalal [facility] Start: 02-21-2023 End: 02-21-2023 ambulatory Lyndon Dalal Facility: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 [place] Work Phone: Start: 08-09-2022 End: 08-09-2022 ambulatory Lyndon Dalal Other [facility] Other Start: 08-09-2022 Telephone encounter Lyndon Dalal [facility] Start: 08-05-2022 End: 08-06-2022 Emergency department patient visit Lyndon Dalal Facility:[facility] Start: 08-05-2022 End: 08-05-2022 ambulatory Lyndon Dalal Other [facility] Other Start: 08-05-2022 Office outpatient visit 40 minutes Lyndon Dalal [facility] Plan of Treatment Date Care Activity Detail Author Start: 08-08-2023 End: 10-08-2023 Thyrotropin [Units/volume] in Serum or Plasma TSH BLD Lab Routine Vikki's thyroiditis Expected: 08/08/2023, Expires: 10/08/2023 [facility] Work Phone: Comment on above: Expected: 08/08/2023 , Expires: 10/08/2023 Start: 08-08-2023 End: 10-08-2023 Thyroxine (T4) free [Mass/volume] in Serum or Plasma T4 FREE/FREE THYROX Lab Routine Vikki's thyroiditis Expected: 08/08/2023, Expires: 10/08/2023 [facility] Work Phone: Comment on above: Expected: 08/08/2023 , Expires: 10/08/2023 Start: 07-07-2023 Urine microalbumin profile [facility] Start: 07-01-2023 Covid-19 Vaccine () Covid-19 Vaccine () [facility] Start: 07-01-2023 Influenza vaccination Influenza Vacc ine (#1) [facility] Start: 03-31-2023 End: 05-31-2023 Thyroglobulin Ab [Units/volume] in Serum or Plasma THYROGLOBULIN AB Lab Routine Vikki's thyroiditis Expected: 03/31/2023, Expires: 05/31/2023 [facility] Work Phone: Comment on above: Expected: 03/31/2023 , Expires: 05/31/2023 Start: 03-31-2023 End: 05-31-2023 THYROID PEROXIDASE ANTIBODY BLOOD THYROID PEROXIDASE ANTIBODY BLOOD Lab Routine Vikki's thyroiditis Expected: 03/31/2023, Expires: 05/31/2023 [facility] Work Phone: Comment on above: Expected: 03/31/2023 , Expires: 05/31/2023 Start: 03-31-2023 End: 05-31-2023 Thyrotropin [Units/volume] in Serum or Plasma TSH BLD Lab Routine Vikki's thyroiditis Expected: 03/31/2023, Expires: 05/31/2023 [facility] Work Phone: Comment on above: Expected: 03/31/2023 , Expires: 05/31/2023 Start: 03-31-2023 End: 05-31-2023 Thyroxine (T4) free [Mass/volume] in Serum or Plasma T4 FREE/FREE THYROX Lab Routine Vikki's thyroiditis Expected: 03/31/2023, Expires: 05/31/2023 [facility] Work Phone: Comment on above: Expected: 03/31/2023 , Expires: 05/31/2023 Start: 03-31-2023 End: 05-31-2023 Triiodothyronine (T3) Free [Mass/volume] in Serum or Plasma T3 FREE BLD Lab Routine Vikki's thyroiditis Expected: 03/31/2023, Expires: 05/31/2023 [facility] Work Phone: Comment on above: Expected: 03/31/2023 , Expires: 05/31/2023 Start: 10-31-2022 DEPRESSION ASSESSMENT DEPRESSION ASS ESSMENT [facility] Start: 2021 PAP TESTING PAP TESTING [facility] Start: 02-02-2021 COVID-19 VACCINE (3 - Booster for Pfizer series) COVID-19 VACCINE (3 - Booster for Pfizer series) [facility] Start: 2018 CHLAMYDIA SCREENING (18-24) CHLAMYDIA SCREENING (18-24) [facility] Start: 2018 GC (GONORRHEA) ARPIT TAG (18-24) GC (GONORRHEA) SCREENING (18-24) [facility] Start: 2018 HEPATITIS C SCREENING HEPATITIS C SC JULIUS [facility] Start: 2018 HIV SCREENING HIV SCREENING [facility] Start: 2016 Meningococcal B Vacc ine: Consider Based On Risk (2 of 2 - Risk Bexsero 2-dose series) Meningococcal B Vaccine: Consider Based On Risk (2 of 2 - Risk Bexsero 2-dose series) [facility] Start: 2016 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 (2 of 2 - Risk Bexsero 2-dose series) MENINGOCOCCAL B: Consider based on risk (2 of 2 - Risk Bexsero 2-dose series) [facility] Start: 2014 PEDS TO ADULT TRANSI TION ANNUAL ASSESSMENT PEDS TO ADULT TRANSITION ANNUAL ASSESSMENT [facility] Start: 2012 PEDS TO ADULT TRANSI TION INITIAL DISCUSSION PEDS TO ADULT TRANSITION INITIAL DISCUSSION [facility] Immunizations Immunization Date Immunization Notes Care Provider Fa ortega 07-19-2022 influenza, injectabl e, quadrivalent, contains preservative Lyndon Easterwood Other [facility] Other 07-19-2022 influenza virus vaccine, unspecified formulation Martina Rodriguez MD, PhD Work Phone: [facility] 12-08-2020 Do not use COVID-19 Pfizer 2 dose Lyndon Easterwood Other [facility] Other 11-17-2020 Do not use COVID-19 Pfizer 2 dose Lyndon Easterwood Other [facility] Other 07-31-2020 influenza, injectabl e, quadrivalent, contains preservative Lyndon Easterwood Other [facility] Other 10-18-2016 influenza, injectabl e, quadrivalent, contains preservative Martina Rodriguez MD, PhD Work Phone: [facility] 08-04-2015 influenza, injectabl e, quadrivalent, contains preservative Martina Rodriguez MD, PhD Work Phone: [facility] 04-23-2014 human papilloma viru s vaccine, quadrivalent Martina Rodriguez MD, PhD Work Phone: [facility] 09-29-2013 human papilloma viru s vaccine, quadrivalent Martina Rodriguez MD, PhD Work Phone: [facility] 07-07-2013 human papilloma viru s vaccine, quadrivalent Martina Rodriguez MD, PhD Work Phone: [facility] 07-07-2013 meningococcal polysaccharide (groups A, C, Y and W-135) diphtheria toxoid conjugate vaccine (MCV4P) Martina Rodriguez MD, PhD Work Phone: [facility] Work Phone: 07-07-2013 tetanus toxoid, redu ollie diphtheria toxoid, and acellular pertussis vaccine, adsorbed Martina Rodriguez MD, PhD Work Phone: [facility] 08-04-2009 influenza virus vaccine, unspecified formulation Martina Rodriguez MD, PhD Work Phone: [facility] 07-05-2008 hepatitis A vaccine, unspecified formulation Martina Rodriguez MD, PhD Work Phone: [facility] 09-09-2007 influenza virus vaccine, unspecified formulation Martina Rodriguez MD, PhD Work Phone: [facility] Work Phone: 06-19-2007 hepatitis A vaccine, unspecified formulation Martina Rodriguez MD, PhD Work Phone: [facility] 06-19-2007 varicella virus vaccine Parth Rodriguez MD, PhD Work Phone: [facility] 09-14-2006 influenza virus vaccine, unspecified formulation Martina Rodriguez MD, PhD Work Phone: [facility] 05-13-2006 diphtheria, tetanus toxoids and acellular pertussis vaccine Martina Rodriguez MD, PhD Work Phone: [facility] Work Phone: 05-13-2006 measles, mumps and rubella virus vaccine Martina Rodriguez MD, PhD Work Phone: [facility] Work Phone: 05-13-2006 poliovirus vaccine, inactivated Martina Rodriguez MD, PhD Work Phone: [facility] Work Phone: 05-13-2006 varicella virus vaccine Parth Rodriguez MD, PhD Work Phone: [facility] Work Phone: 07-26-2005 influenza virus vaccine, unspecified formulation Martina Rodriguez MD, PhD Work Phone: [facility] Work Phone: 07-30-2004 influenza virus vaccine, unspecified formulation Martina Rodriguez MD, PhD Work Phone: [facility] Work Phone: 06-30-2002 diphtheria, tetanus toxoids and acellular pertussis vaccine Martina Rodriguez MD, PhD Work Phone: [facility] Work Phone: 06-30-2002 poliovirus vaccine, inactivated Martina Rodriguez MD, PhD Work Phone: [facility] Work Phone: 04-04-2002 haemophilus influenz ae type b vaccine, HbOC conjugate Martina Rodriguez MD, PhD Work Phone: [facility] Work Phone: 04-04-2002 measles, mumps and rubella virus vaccine Martina Rodriguez MD, PhD Work Phone: [facility] Work Phone: 12-16-2001 hepatitis B vaccine, pediatric or pediatric/adolescent dosage Martina Rodriguez MD, PhD Work Phone: [facility] Work Phone: 12-16-2001 pneumococcal conjuga te vaccine, 7 valent Martina Rodriguez MD, PhD Work Phone: [facility] Work Phone: 09-30-2001 pneumococcal conjuga te vaccine, 7 valdenny Rodriguez MD, PhD Work Phone: [facility] Work Phone: 06-24-2001 diphtheria, tetanus toxoids and acellular pertussis vaccine Martina Rodriguez MD, PhD Work Phone: [facility] Work Phone: 06-24-2001 haemophilus influenz ae type b vaccine, HbOC conjugate Martina Rodriguez MD, PhD Work Phone: [facility] Work Phone: 06-24-2001 pneumococcal conjuga te vaccine, 7 valdenny Rodriguez MD, PhD Work Phone: [facility] Work Phone: 04-12-2001 diphtheria, tetanus toxoids and acellular pertussis vaccine Martina Rodriguez MD, PhD Work Phone: [facility] Work Phone: 04-12-2001 haemophilus influenz ae type b vaccine, HbOC conjugate Martina Rodriguez MD, PhD Work Phone: [facility] Work Phone: 04-12-2001 poliovirus vaccine, inactivated Martina Rodriguez MD, PhD Work Phone: [facility] Work Phone: 02-03-2001 diphtheria, tetanus toxoids and acellular pertussis vaccine Martina Rodriguez MD, PhD Work Phone: [facility] Work Phone: 02-03-2001 haemophilus influenz ae type b vaccine, HbOC conjugate Martina Rodriguez MD, PhD Work Phone: [facility] Work Phone: 02-03-2001 poliovirus vaccine, inactivated Martina Rodriguez MD, PhD Work Phone: [facility] Work Phone: 2000 hepatitis B vaccine, pediatric or pediatric/adolescent dosage Martina Rodriguez MD, PhD Work Phone: [facility] Work Phone: 2000 hepatitis B vaccine, pediatric or pediatric/adolescent dosage Martina Rodriguez MD, PhD Work Phone: [facility] Work Phone: Payers Date Payer Category Payer Private Health Insurance [id number] 2024 Unknown [id number] 2023 Unknown [id number] 2022 Private Health Insurance [id number] 2022 Self-pay 2020 Private Health Insurance [id number] 2020 Private Health Insurance [id number] 2000 Unknown [id number] 2.16.840.1.431978.3.579.2.7 2000 Unknown [id number] 2.16.840.1.915292.3.579.2.727 2000 Unknown [id number] 2.16.840.1.870948.3.579.2.727 2000 Unknown [id number] 2.16.840.1.157921.3.579.2.727 2000 Unknown [id number] 2.16.840.1.651436.3.579.2.727 2000 Unknown [id number] 2.16.840.1.424687.3.579.2.727 2000 Unknown [id number] 2.16.840.1.675535.3.579.27 2000 Unknown [id number] 2.16.840.1.946943.3.579.2.727 2000 Unknown [id number] 2.16.840.1.084259.3.579.2.727 2000 Unknown [id number] 2.16.840.1.774973.3.579.2.727 2000 Unknown [id number] 2.16.840.1.990124.3.579.2.727 2000 Unknown [id number] 2.16.840.1.711129.3.579.2.1286 2000 Unknown [id number] 2.16.840.1.472464.3.579.2.1285 2000 Unknown [id number] 2.16.840.1.144580.3.579.2.128 2000 Unknown [id number] 2.16.840.1.304849.3.579.2.727 2000 Unknown [id number] 2.16.840.1.659134.3.579.2.9 2000 Unknown [id number] 2.16.840.1.290455.3.579.2.9 2000 Unknown [id number] 2.16.840.1.780378.3.579.2.9 2000 Unknown [id number] 2.16.840.1.147424.3.579.2.9 2000 Unknown [id number] 2.16.840.1.747480.3.579.2.9 2000 Unknown [id number] 2.16.840.1.751179.3.579.2.1259 Private Health Insurance [facility] [id number] Unknown [id number] 2.16.840.1.625349.3.579.2.531 Unknown [facility] Employees [id number] Unknown [id number] 2.16.840.1.585599.3.579.2.531 Unknown [id number] 2.16.840.1.943423.3.579.2.531 Social History Date Type Detail Facility Start: 03-08-2023 Sex Assigned At N [facility] Other Start: 09-27-2014 End: 08-05-2022 Tobacco smoking status NHIS Never smoked tobacco [facility] History of tobacco use Passive smoker [facility] Start: 03-08-2023 Alcohol intake Not Asked [facility] Start: 2000 Sex Assigned At Not on file C [facility] Start: 2000 Sex Assigned At Female F [facility] Start: 03-08-2023 History of Social function [facility] Clinical Notes 09-09-2009 to 09-15-2023 Note Date [...] in office today for physical therapy to [facility]. Discussed continuation of [id number] medications as needed. Take muscle relaxer as [...] in office today for physical therapy to [facility]. Discussed continuation of [id number] medications as needed. Take muscle relaxer as [...] that were not corrected during review process. [employer] Other 09-12-2023 Evaluation note* Encounter Date Diagnosis [...] that were not corrected during review process. [employer] Other 07-26-2023 Evaluation note* Encounter Date Diagnosis [...] that were not corrected during review process. [employer] Other 06-18-2023 NoteEchocardiology Procedure Exam Date/Time Accession # Ordering ECG Stress Exercise 04/15/2023 08:43 EDT [id number] Benjamin Baker MD CPT code 23851 Reason for Exam (ECG Stress Exercise) I95.1;Dizziness [...] Benjamin Baker MD Transcribed by: jamie Technologist: [facility]06-16-2023 Note Echocardiology Procedure Exam Date/Time Accession # Ordering Dr. Stewart Transthoracic 04/15/2023 09:42 EDT [id number] Benjamin Baker MD Complete CPT code 68898 77512 Reason for Exam (Echo Transthoracic Complete) I95.9;Hypotension Report [facility] [address] [place] [address] Adult Echocardiogram Report Name: EMMY DALE Study Date: 04/15/2023 09:02 AM BP: 105/71 mmHg Patient Location: [facility] HR: 75 : 2000 Gender: Female Height: 63 in Age: 22 yrs Ethnicity: T Weight: 178 lb Reason For Study: Hypotension BSA: 1.8 m2 History: No cardiac history per patient Ordering Physician: Samuel^Benjamin^John Referring Physician: Benjamin Baker Performed By: Jonelle Alvarez, [facility] Interpretation Summary Ejection Fraction = [...] Benjamin Baker MD Transcribed by: YOVANI Technologist: [facility]05-09-2023 Note HNO ID: [id number] Author: Martina Rodriguez MD, PhD Service: ? Author Type: Physician Type: Progress Notes Filed: 03/08/2023 6:07 PM Note Text: Ms. aDle is here today at the request of [...] Arthritis Father in blood . was at [facility] when baby thought to be related to [...] Plan: Will monitor thyroid (more content not included)...[facility] 03-08-2023 History of Present illness Narrative* Martina [...] Arthritis Father in blood . was at [facility] when baby thought to be related to [...] Martina Rodriguez MD, PhD [facility]* Encounter Date Diagnosis Assessment Notes [...] I would recommend referral to a different customer relations consultant. Patient does have the name of an customer relations consultant that she would like referred to. We will put that referral in today. Dr. Roger Kim - [facility] Endocrinology, [facility] February, Dizziness (ICD-10 - R42) [...] that were not corrected during review process. [employer] Other 10-06-2022 Evaluation note* Encounter Date Diagnosis [...] to ER, I highly recommend she call DRIVER EDUCATION INSTRUCTOR the second she leaves our office to follow-up.She needs to let them know about her concerns.I explained to her that even though she may assume that her DRIVER EDUCATION INSTRUCTOR will not listen her , I still want her to reach out to that office and explained to them her current concerns. She wants to know what the immediate treatment would be and work-up for spinal headache and possible leak however I cannot provide her with this information as I am not DRIVER EDUCATION INSTRUCTOR. Jul, Hip pain (ICD-10 - M25.559) While [...] I did discuss with her concerns over [id number] medications during breast-feeding. Discussed recommendations currently and please bring this up to DRIVER EDUCATION INSTRUCTOR as well for further recommendations. Does not [...] I would like her to follow-up with DRIVER EDUCATION INSTRUCTOR or go to ER regarding this dizziness and we can follow-up in office after. If nothing comes from an DRIVER EDUCATION INSTRUCTOR/spinal headache/spinal leak standpoint, we can order CT [...] that were not corrected during review process. [employer] Other 11-10-2009 History of Past illness Narrative* Problem Noted Date Resolved Date Constipation 09/09/2009 08/28/2014 documented as of this encounter (statuses as of 03/09/2023) [facility] of Past illness Narrative* Problem Noted Date Diagnosed Date Resolved Date Constipation 09/09/2009 08/28/2014 documented as of this encounter (statuses as of 08/09/2023) [facility] noteNo InformationNort Yerdle Other Evaluation note* Diagnosis Vikki's thyroiditis- Primary Chronic lymphocytic thyroiditis documented in this encounter [facility] [place] noteNo assessment information availableC[facility] Work Phone: Evaluation note* Diagnosis Vikki's thyroiditis- Primary Chronic lymphocytic thyroiditis [facility] - Reported* Type Description Date Medical History Asthma Medical History Vasovagal syndrome- childhood (r esolved) Medical History Exercise-induced asthma Medical History Pityriasis rosea Medical History Tachycardia Medical History Vikki's thyroiditis Medical History Pre-eclampsia Surgical History [place] teeth extract 2017 Surgical History Vaginal childbirth 03/2022 Hospitalization History See surgical [employer] Other History general Narrative - Reported* Type Description Date Medical History Exercise-induced asthma Medical History Pityriasis rosea Medical History Tachycardia Medical History Vikki's thyroiditis Medical History Asthma Medical History Pre-eclampsia Medical History Hypotension Surgical History [place] teeth extract 2017 Surgical History Vaginal childbirth 03/2022 Hospitalization History See surgical [employer] Other History general Narrative - Reported* Type Description Date Medical History Exercise-induced asthma Medical History Pityriasis rosea Medical History Tachycardia Medical History Vikki's thyroiditis Medical History Asthma Medical History Pre-eclampsia Medical History Hypotension Medical History GERD (gastroesophageal reflux di sease) Surgical History [place] teeth extract 2016 Surgical History Vaginal childbirth 03/2022 Surgical History EGD/colonoscopy 2012 Hospitalization History See surgical [employer] Other History general Narrative - Reported* Type Description Date Medical History Exercise-induced asthma Medical History Pityriasis rosea Medical History Tachycardia Medical History Vikki's thyroiditis Medical History Asthma Medical History Pre-eclampsia Medical History Hypotension Medical History GERD (gastroesophageal reflux di sease) Medical History Thyromegaly Surgical History [place] teeth extract 2017 Surgical History Vaginal childbirth 03/2022 Surgical History EGD/colonoscopy 2012 Hospitalization History See surgical [employer] Other [facility] general Narrative - Reported* Type Description Date Medical History Exercise-induced asthma Medical History Pityriasis rosea Medical History Tachycardia Medical History Vikki's thyroiditis Medical History Asthma Medical History Pre-eclampsia Medical History Hypotension Medical History GERD (gastroesophageal reflux di sease) Medical History Thyromegaly Medical History Other idiopathic scoliosis, thor acic region Surgical History [place] teeth extract 2017 Surgical History Vaginal childbirth 03/2022 Surgical History EGD/colonoscopy 2012 Hospitalization History See surgical [employer] Other Summary Purpose Family History No Family [...] gastriti s with hemorrhage (K29.01) Referral Organization [facility] [employer] Referring Provider First Name Lyndon Referring Provider Last Name [facility] Referring Provider Specialty Nurse Pract itioner Referred Organization [facility] Gastroenterolo gy Referred Provider Patricio Urena Referred Address [address] [address] ,[place], [place],[address] Referred Provider Specialty Gastroentero logy Referral Priority Routine General [facility] 10:08:56 AM >Received today. [facility] request us to fill out their form and fax to them. They will review the referral and call patient to schedule them. Referral was fax. [facility] 07/12/2023 01:31:38 PM >Per telephone encounter, patient wants to try [facility] Gastro doctors. Sent P2P Reason *03/08 Dr. Hawa Kim - [facility] Endocrinology, [facility]; [employer]- please send this note with 2 previous notes Diagnosis 1 Vikki's thyroidi tis (E06.3) Referral Organization [facility] [employer] Referring Provider First Name Lyndon Referring Provider Last Name [facility] Referring Provider Specialty Nurse Pract itioner Ref[facility] Referred Address [address] [place], [place],[address] Referred Provider Specialty Endocrinolog y Referral Priority Routine General Notes [facility] 023 01:21:05 PM >Received today and referral was fax with the [facility] Form. They will review and call patient to schedule Reason *03/08 Dizzines s- TERRENCE; Please send this note with 2 previous notes Diagnosis 1 Dizziness (R42) Referral Organization [facility] [employer] [place] Referring Provider First Name Lyndon Referring Provider Last Name [facility] Referring Provider Specialty Nurse Pract itioner Referred Organization [facility] Referred Provider Jose Dominguez Referred Address [address], [place],[address] Referred Provider Specialty Neurology Referral Priority Routine [...] section and content) DATE CREATED AUTHOR 08/06/2022 [facility] DATE CREATED AUTHOR AUTHOR'S ORGANIZ ATION 08/20/2023 [facility] DATE CREATED AUTHOR AUTHOR'S ORGANIZ ATION 12/09/2023 [facility] DATE CREATED AUTHOR AUTHOR'S ORGANIZ ATION 04/06/2024 [facility] DATE CREATED AUTHOR AUTHOR'S ORGANIZ ATION 05/03/2024 [facility] DATE CREATED AUTHOR AUTHOR'S ORGANIZ ATION 05/18/2024 [facility] DATE CREATED AUTHOR AUTHOR'S ORGANIZ ATION 06/14/2024 [facility] DATE CREATED AUTHOR AUTHOR'S ORGANIZ ATION 06/26/2024 [facility] DATE CREATED AUTHOR AUTHOR'S ORGANIZ ATION 06/27/2024 [facility] EPIC REASON FOR VISIT (unrecogniz ed section and content) Reason Comments New Patient Source Comments (unrecognize d section and content) In the event this informatio n is protected by the Federal Confidentiality of Alcohol and Drug Abuse Patient Records regulations: The Federal rules restrict any use of the information to criminally investigate or prosecute any alcohol or drug abuse patient.[facility] Hospital[facility] the event this information is protected by the Federal Confidentiality of Alcohol and Drug Abuse Patient Records regulations: The Federal rules restrict any use of the information to criminally investigate or prosecute any alcohol or drug abuse patient.[facility] Care Teams (unrecognized sec tion and content) Director Of Distance Learning Relationship Specialty Start Date End Date Lyndon Dalal CNP [address] [address] PCP - General Family Medicine 03/08/23 Lyndon Dalal CNP [address] [address] Referring Family Medicine 03/04/23 Team Status: Active Member Role Status Dates Lyndon Dalal APRN Primary Care Provider Active Team Status: Inactive Member Role Status Dates Lyndon Dalal APRN Primary Care Provider, Attend ing Provider Active Director Of Distance Learning Relationship Specialty Start Date End Date Lyndon Dalal CNP [address] [address] PCP - General Family Medicine 03/08/23 Lyndon Dalal CNP [address] [address] Referring Family Medicine 03/04/23 Goals (unrecognized section [...] BE BASED ON THE PRIMARY CLINICAL RECORDS. [facility]. provides no warranty or guarantee of the accuracy or completeness of information in this document.
== END 2024-07-05 07:59 | disposition home or self-care (01) ==
LOC: NOMS 07:58
PROVIDERS: PCP Family Medicine; Visit Provider Physician Assistant
DX: E07.9 Disorder of thyroid, unspecified (principal); Z3A.27 27 weeks gestation of pregnancy
CPT/HCPCS: 76816

== ENCOUNTER 2024-07-12 08:29 | Outpatient (OUT) | payer OTHER, SELFPAY ==
--- NOTE | 2024-07-12 08:32 | US_ITS ---
[id number] Patient Name: EMMY DALE MRN: [id number] date: 2000 Sex: F Assigned Patient Location: [facility] Current Patient Location: [facility] Accession/Order Number: [id number] Exam Date: 07/12/2024 08:32 Report Date: 07/12/2024 10:47 At the request of: ANN GONGORA Procedure: US OB amniotic fluid vol EXAMINATION: US OB amniotic fluid vol HISTORY: BORDERLINE LOW AMNIOTIC FLUID LEVEL COMPARISON: No relevant comparison available. FINDINGS: position: Cephalic presentation, longitudinal lie Amniotic fluid volume: 12.6 cm, largest fluid pocket 4.9 cm Heart rate: 132 bpm Clinical age: 28 weeks 6 days Clinical [facility]: 09/28/2024 US/US OB amniotic fluid vol IMPRESSION: Normal amniotic fluid volume Electronically authenticated by: CHRISTINE WALKER Date: 07/12/2024 10:47
--- OUTSIDE RECORDS SUMMARY | 2024-07-12 08:53 | XMS_ITS | CCD ---
Author Organization [facility] Care Team Providers Care Is/It Project Manager Name Role Phone Lyndon Dalal Primary Care Unavailable Juancarlos Maria Attending Unavailable Juancarlos Maria Admitting Unavailable Lyndon Dalal Unavailable Lyndon Dalal CNP Unavailable [phone] Lyndon Dalal CNP Primary Care Provider ANKIT Dalal Primary Care Provider ANKIT Dalal Attending Provider [phone] LYNDON DALAL Primary Care Unavailable MARTINA RODRIGUEZ Referring Unavailable YOSELIN, LYNDON Primary Care Unavailable MARTINA RODRIGUEZ Referring Unavailable MARTINA RODRIGUEZ M Referring Unavailable YOSELIN, LYNDON Primary Care Unavailable MARTINA RODRIGUEZ Attending Unavailable Dami GONGORA Admitting Unavailable Dami GONGORA Attending Unavailable YOSELIN LYNDON Admitting Unavailable MELISSA DALALA Attending Unavailable Bill Kat Admitting Unavailable Bill [...] Referring Unavailable EASTERWOOD, LYNDON Primary Care Unavailable MELO, LELE L Attending Unavailable MELO, LELE L Admitting Unavailable MELO, LELE L Attending Unavailable MELO, LELE L Admitting Unavailable ROLAN, DAMI Attending Unavailable ROLAN, DAMI Attending Unavailable ROLAN, DAMI Attending Unavailable MELO, LELE Attending Unavailable ROLAN, DAMI Attending Unavailable ROLAN, DAMI Attending Unavailable Easterwood, Lyndon J Attending Unavailable Easterwood, Lyndon J Primary Care Unavailable Easterwood, Lyndon J Admitting Unavailable Allergies Allergy Classification Reported Allergen(s) Allergy Type Date of Onset Reaction(s) Facility Sulfonamides (antibiotic) (1 source) Sulfonamides (Antibiotic); Translations: [sulfa drugs] Drug Allergy [facility] Repository (6 sources) Sulfonamides (Antibiotic); Translations: [SULFA (SULFONAMIDE ANTIBIOTICS)] Drug allergy (disorder) 5 [facility]ository (2 sources) Sulfonamide Drug allergy rash [facility] Other (14 sources) Substance with sulfonamide structure and antibacterial mechanism of action (substance) Drug allergy 5 [facility] (2 sources) Sulfonamides (Antibiotic); Translations: [sulfa drugs] Propensity to adverse reactions (disorder) [facility] Medications Current Medications Medication Drug [...] by fredi th every twenty-four hours Biotin 89055 MCG 1 tablet Orally Once a day OTC Not-Taking/PRN take 1 tablet by fredi th every twenty-four hours Biotin 40356 MCG 1 tablet Orally Once a day OTC Not-Taking take 1 tablet by mouth once [place] [place] y Biotin 20212 MCG 1 tablet Orally Once a day OTC Not-Taking BIOTIN ORAL Take by mouth q 24 HR. 0 Active take 1 tablet by mouth once [place] Biotin 49526 MCG 1 tablet Orally Once a day [...] Probiotic OTC, daily Active lactobacillus rhamnosus gg [id number] unt oral capsule (1 source) Start: 5 End: 3 take 1 capsule by mouth once daily lactobacillus rhamnosus (CULTURELLE) 10 billion cell capsule Indications: Abdominal pain Take 1 capsule by mouth once daily. 30 capsule 2 04/30/2015 03/08/2023 Discontinued Comment on above: Take 1 capsule by [facility] once daily. levothyroxine sodium [...] Comment on above: [facility] pantoprazole 20 mg delayed [...] (14 sources) Tachycardia; Translations: [Tachycardia, unspecified] Episodic Conditions associated with dizziness or vertigo (14 sources) Dizziness and giddiness; Translations: [Dizziness] Episodic Esophageal disorders (11 sources) Gastroesophageal reflux [...] Translations: [Nontoxic goiter, unspecified] Onset: 05-13-2024 Chronic Past or Other Problems Problem Classification Problem Date Documented Date Episodic/Chronic Blindness and vision defects (2 sources) Wears glasses; Translations: [Presence of spectacles and contact lenses] Onset: 08-28-2014 08-28-2014 Episodic Contraceptive and procreative management (2 sources) Patient encounter status; Translations: [Encounter for initial prescription of contraceptive pills] Onset: 09-27-2014 09-27-2014 Episodic Headache; including migraine (2 sources) Headache; Translations: [Headache] Onset: 09-27-2014 09-27-2014 Episodic Other non-traumatic joint disorders (1 source) Pain in right shoulder; Translations: [Pain in right shoulder] Onset: 10-25-2023 Episodic Residual codes; unclassified (2 sources) High risk sexual behavior; Translations: [High risk heterosexual behavior] Onset: 09-27-2014 09-27-2014 Episodic Syncope (2 sources) Near syncope; Translations: [Syncope and collapse] Onset: 09-27-2014 09-27-2014 Episodic Viral infection (3 sources) Viral infection, unspecified; Translations: [Verruca vulgaris] Onset: 09-27-2014 Episodic Results Test Name Value Interpretation Reference Range Facility [facility] 06-25-2024 Albumin [Mass/Vol] 3.6 g/dL Normal 3.3-5.0 [facility] Comment on above: Performed By: #### 2 735571 #### [facility] [address] [place] [address] Albumin/Globulin (S) [Mass conc ratio] 1.3 Normal 1.1-2.2 [facility] Comment on above: Performed By: #### 2 895909 #### [facility] [address] [place] [address] ALP [Catalytic activity/Vol] 63 Int._Unit/L Normal 21-98 [facility] Comment on above: Performed By: #### 2 034921 #### [facility] [address] [place] [address] ALT No additional P-5'-P [Catalytic activity/Vol] 13 Int._Unit/L Normal 6-46 [facility] Comment on above: Performed By: #### 2 618019 #### [facility] [address] [place] [address] Anion gap [Moles/Vol] 10 mmol/L Normal 6-16 [facility] Comment on above: Performed By: #### 2 293885 #### [facility] [address] [place] [address] AST [Catalytic activity/Vol] 12 Int._Unit/L Normal 5-43 [facility] Comment on above: Performed By: #### 2 776360 #### [facility] [address] [place] [address] Bilirubin [Mass/Vol] 0.7 mg/dL Normal 0.0-1.1 [facility] Comment on above: Performed By: #### 2 094329 #### [facility] [address] [place] [address] Calcium [Mass/Vol] 8.6 mg/dL Low 8.9-11.1 [facility] Comment on above: Performed By: #### 2 449428 #### [facility] [address] [place] [address] Chloride [Moles/Vol] 104 mmol/L Normal 101-111 [facility] Comment on above: Performed By: #### 2 588652 #### [facility] [address] [place] [address] CO2 [Moles/Vol] 25 mmol/L Normal 21-31 [facility] Comment on above: Performed By: #### 2 806519 #### [facility] [address] [place] [address] Creatinine [Mass/Vol] 0.4 mg/dL Low 0.5-1.3 [facility] Comment on above: Performed By: #### 2 176860 #### [facility] [address] [place] [address] Globulin (S) [Mass/Vol] 2.8 g/dL Normal 1.4-4.0 [facility] Comment on above: Performed By: #### 2 016785 #### [facility] [address] [place] [address] Glucose [Mass/Vol] 97 mg/dL Normal 55-199 [facility] Comment on above: Performed By: #### 2 481514 #### [facility] [address] [place] [address] Potassium [Moles/Vol] 3.4 mmol/L Low 3.5-5.3 [facility] Comment on above: Performed By: #### 2 717140 #### [facility] [address] [place] [address] Protein [Mass/Vol] 6.4 g/dL Normal 6.0-7.8 [facility] Comment on above: Performed By: #### 2 859319 #### [facility] [address] [place] [address] Sodium [Moles/Vol] 136 mmol/L Normal 135-145 [facility] Comment on above: Performed By: #### 2 748983 #### [facility] [address] [place] [address] Urea nitrogen [Mass/Vol] 8 mg/dL Normal 5-21 [facility] Comment on above: Performed By: #### 2 577154 #### [facility] [address] [place] [address] Urea nitrogen/Creatini ne [Mass ratio] 20 No Units Normal 10-20 [facility] Comment on above: Performed By: #### 2 894148 #### [facility] [address] [place] [address] TSHon 06-25-2024 TSH Qn 3.63 m[IU]/L Normal 0.34-5.60 [facility] Comment on above: Performed By: #### 2 924536 #### [facility] [address] [place] [address] eGFRon 06-25-2024 eGFR 142 mL/min/1.73 m2 Normal >=59 [facility] Comment on above: Order Comment: Order added by Discern Expert. Performed By: #### 1 8880064 #### [facility] [address] [place] [address] TSHon 05-31-2024 TSH Qn 1.99 m[IU]/L Normal 0.34-5.60 [facility] Comment on above: Performed By: #### 2 309060 #### [facility] [address] [place] [address] TSHon 05-01-2024 TSH Qn 1.54 m[IU]/L Normal 0.34-5.60 [facility] Comment on above: Performed By: #### 2 190975 #### [facility] [address] [place] [address] Consent for Treatmenton Consent for Treatment [id number]#1.00TIF F Normal [facility] Physician Orderon 04-04-2024 Physician Order [id number]#1.00TI FF Normal [facility] TSHon 04-04-2024 TSH Qn 2.73 m[IU]/L Normal 0.34-5.60 [facility] Comment on above: Performed By: #### 2 228482 #### [facility] [address] [place] [address] XR Spine Cervical 4 or 5 Vie [...] mGy = . DAP = . Normal [facility] XR Spine Thoracic 3 Viewson 09-16-2023 [...] mGy = . DAP = . Normal [facility] Physician Orderon 09-15-2023 Physician Order [id number]#1.00T IFF Normal [facility] T4 Free SerPl-mCncon 023 Free T4 [Mass/Vol] 1.2 ng/dL Normal 0.9-1.7 [facility] Comment on above: Order Comment: Specolivier men Type: BLOOD SPECIMEN Ordering Facility: [facility] Address: [address] [place] [address] Performed By: #### 3 024-7, 3016-3 #### [facility] CLIA [id number] [address] [place] [address] [place] TSH SerPl-aCncon 08-18-2023 TSH Qn 2.280 m[IU]/L Normal 0.270-4.200 [facility] Comment on above: Order Comment: Rozina florez Type: BLOOD SPECIMEN Ordering Facility: [facility] Address: [address] [place] [address] Result Comment: If t he patient is , TSH reference range varies by gestational period: First Trimester (weeks 9-12): 0.180-2.990 mIU/L Second Trimester: 0.110-3.980 mIU/L Third Trimester: 0.480-4.710 mIU/L Noe Ramon et al. A Practical Approach for the Verifications and Determination of Site- and Trimester-Specific Reference Intervals for Thyroid Function tests in . Thyroid, 2019:29:3:412-420. Gregor Banegas, et al. 2017 Guidelines of the [place] Thyroid Association for the Diagnosis and Management of Thyroid Disease during and the . Thyroid, 2017:27:3:315-389. Performed By: #### 3 024-7, 3016-3 #### [facility] CLIA [id number] [address] [place] [address] [place] Consent for Treatmenton Consent for Treatment [id number]#1.00CD: 127 Normal [facility] US Renalon 07-08-2023 US Renal Exam [...] Mendoza M.D. Transcribed by: MORENO Technologist: EMILY [facility] XR Abdomen 1 Viewon 07-08-20 23 XR [...] mGy = . DAP = . Normal [facility] Ambulatory Visit Summaryon 0 06-21-2023 Ambulatory Visit Summary EMMY DALE :2000 Visit Date:06/21/2023 Ambulatory Visit Instructions Your Diagnosis Urinary crystals Recurrent UTI Urethral stricture Gross hematuria Tests Performed Urnls Dip Stick Auto w/o Microscopy POC 14161 Your Care Team Attending Physician - SOBEIDA [...] call pt. Where: [address] [place] [address] You Need to Complete the Following US Renal, *Est. 06/21/23 due within 1 months, Routine, Order for future visit, Transport Mode: Ambulatory, Reason: Other (please specify), Reason: Kidney Stones, No, Kidney stones, pp_set_radiology_subspec ialty, [facility] [place] XR Abdomen 1 View, *Est. 06/21/23 due within 1 months, Routine, Order for future visit, Transport Mode: Ambulatory, Reason: Kidney stone, No, Kidney stones, pp_set_radiology_subspec ialty, [facility] [place] Medications What How Much When Instructions Unchanged busPIRone (busPIRone 10 mg Tab) 2 times a day Contact prescribing physician if questions or concerns Unchanged levothyroxine (Synthroid 25 mcg(0.025 mg) Tab) Every day Contact prescribing physician if questions or concerns Test Results Urnls Dip Stick Auto w/o Microscopy POC 00780 (06/21/2023) Bilirubin Urine Dipstick - Negative Blood Urine Dipstick - Negative Glucose Urine Dipstick - Negative Ketones Urine Dipstick - Negative Leukocytes Urine Dipstick - Negative Nitrite Urine Dipstick - Negative Protein Urine Dipstick - Negative Specific [place] Urine Dipstick - 1.010 Urine Appearance Urine [...] ? 8 oz (237 mL) of milk, yfsqsrj-poglxcyehmox-rze ry milk, and calcium-fortifiedfruit juice. Calcium-fortified means [...] wheat cereals. (more content not included)... Normal [facility] Patient Educationon 06-21-20 Patient Education Nephrology [...] ? 8 oz (237 mL) of milk, ehvpfsi-zlwfsbznlepj-rbx ry milk, and calcium-fortifiedfruit juice. Calcium-fortified means [...] Spinach (cooked), rhubarb, beets, sweet potatoes, and Cypriot chard. ? Peanuts. ? Potato chips, senegalese fries, and baked potatoes with skin on. ? Nuts and nut products. ? Chocolate. ? If you regularly take a diuretic medicine, make sure to eat at least 1 or 2 servings of fruits or vegetables that are high in potassium each day. These include: ? Avocado. ? Banana. ? [place], prune, carrot, or tomato juice. ? Baked [...] fish oil, or vitamin B6. ? Take acqo-psg-rsurcjw and prescription medicines only as told by your health care provider. These include supplements. What foods should I limit? Limit your in (more content not included)... Normal [facility] Urology Office/Clinic Noteon 06-21-2023 Urology Office/Clinic [...] pass. Will send CORDELIA and KUB to [facility] to see if any persistent [...] Urnls Dip Stick Auto w/o Microscopy POC 76509 4. Gross hematuria (R31.0: Gross hematuria) CORDELIA [...] When Contact Information SOBEIDA THOMPSON PA-C, URL [address] [address] Additional Instructions: will call pt. Patient Education Dietary Guidelines to Help Prevent Kidney Stones ILaura, personally scribed for Sobeida Thompson PA-C on 06/21/2023 12:25:11. . Documentation recorded by the scrfarhan Lou accurately reflects the services(s) I performed [...] History Cystour (more content not included)... Normal [facility] Comment on above: Result Comment: Elec tronically Signed By: SOBEIDA THOMPSON PA-C\.br\Date and Time Signed: 06/21/23 12:44 EDT\.br\Electronically Co-Signed By: Laura Lou\.br\Date and Time Co-Signed: 06/21/23 12:25 EDT PAP [id number] 06-07-2023 Cytology report Cyto stain Doc (Cvx/Vag) Note Invalid Interpretation Code [facility] Comment on above: Result Comment: TEST S RESULT FLAG UNITS REF RANGE LAB Clinician Provided Cytology Information Source.............Endocervix No. of containers..01 ThinPrep Vial DIAGNOSIS: 01 NEGATIVE FOR INTRAEPITHELIAL LESION OR MALIGNANCY. Specimen adequacy: 01 Satisfactory for evaluation. Endocervical and/or squamous metaplastic cells (endocervical component) are present. Performed by: Clif Bolaños Wet End Supervisor ([facility]) . 01 Note: Note 01 The Pap [...] High,A-Abnormal,AA-Critical Abnormal Performed at: 01 [address] [facility] [address] [place] [address] Lisa Ellington MD, Performed at: [facility] [address] [place], [place] [id number] MD Chandana Gonzalez Performed By: #### 3 [id number] ####[facility] [address] [place] [address] Consent for Treatmenton Consent for Treatment [id number]: 127 Normal [facility] Office/Cl inic Noteon 06-01-2023 [...] but unfortunately she was called by the cryptologic technician technical and told that it was not working. [...] her Sy (more content not included)... Normal [facility] Comment on above: Result Comment: Elec tronically Signed By: SAMUEL VELAZQUEZ, Benjamin Lopez\.br\Date and Time Signed: 06/01/23 14:25 EDT PAP [id number] 06-01-2023 Collection Technique BRUSH-SPATULA Normal [facility] Comment on above: Performed By: #### 3 [id number] ####[facility] [address] [place] [address] Gynecological Body Site ENDOCERVIX Normal [facility] Comment on above: Performed By: #### 3 [id number] ####[facility] [address] [place] [address] Physician Orderon 06-01-2023 Physician Order [id number]#1.00CD :127 Normal [facility] Physician Order [id number]#1.00CD: 127 Normal [facility] C Urineon 05-27-2023 Bacteria identified Cx [...] Locations R1: This test was performed at: [facility], [address] [place] [address], [address] , [place], Normal [facility] Comment on above: Performed By: #### 2 333704 ####[facility] [address] [place] [address] T4 Free SerPl-mCncon 023 Free T4 [Mass/Vol] 1.2 ng/dL Normal 0.9-1.7 [facility] Comment on above: Order Comment: Rozina florez Type: BLOOD SPECIMEN Ordering Facility: [facility] Address: [address] [place], [place] [id number] Performed By: #### 3 024-7, 3016-3 #### [facility] CLIA [id number] [address] [facility] [id number] STATES OF [facility] TSH SerPl-aCncon 05-26-2023 TSH Qn 2.260 m[IU]/L Normal 0.270-4.200 [facility] Comment on above: Order Comment: Rozina florez Type: BLOOD SPECIMEN Ordering Facility: [facility] Address: [address] [place], [place] [id number] Result Comment: If t he patient is , TSH reference range varies by gestational period: First Trimester (weeks 9-12): 0.180-2.990 mIU/L Second Trimester: 0.110-3.980 mIU/L Third Trimester: 0.480-4.710 mIU/L Noe Ramon et al. A Practical Approach for the Verifications and Determination of Site- and Trimester-Specific Reference Intervals for Thyroid Function tests in . Thyroid, 2019:29:3:412-420. Gregor Banegas, et al. 2017 Guidelines of the [place] Thyroid Association for the Diagnosis and Management of Thyroid Disease during and the . Thyroid, 2017:27:3:315-389. Performed By: #### 3 024-7, 3016-3 #### [facility] CLIA [id number] [address] [place] [address] [place] Consent for Treatmenton 05-01 Consent for Treatment [id number]: 127 Normal [facility] Physician Orderon 05-25-2023 Physician Order [id number]#1.00CD:12 7 Normal [facility] Urinalysison 05-25-2023 Bacteria LM Ql (Urine sed) 2+ /HPF Abnormal Trace [facility] Comment on above: Performed By: #### 1 9990123 ####[facility] [address] [place] [address] Bilirubin Ql (U) Negative Normal Negative [facility] Comment on above: Performed By: #### 1 1303002 ####[facility] [address] [place] [address] Clarity (U) SL CLOUDY Abnormal Clear [facility] Comment on above: Performed By: #### 1 4475474 ####[facility] [address] [place] [address] Color (U) YELLOW Normal Yellow [facility] Comment on above: Performed By: #### 1 8335176 ####[facility] [address] [place] [address] Crystals LM Ql (Urine sed) Present Normal [facility] Comment on above: Performed By: #### 1 1656238 ####[facility] [address] [place] [address] Epithelial cells.squamous LM.HPF (Urine sed) [#/Area] 0-2 Normal 0-2 [facility] Comment on above: Performed By: #### 1 4845260 ####[facility] [address] [place] [address] Glucose Test strip (U) [Mass/Vol] Negative Normal Negative [facility] Comment on above: Performed By: #### 1 9015013 ####[facility] [address] [place] [address] Hemoglobin Ql (U) 2+ Abnormal Negative [facility] Comment on above: Performed By: #### 1 2514890 ####[address] [address] Ketones (U) [Mass/Vol] Negative Normal Negative [facility] Comment on above: Performed By: #### 1 6874811 ####[address] [address] Maypearl.plasma/Li thium.RBC (Bld) [Mass ratio] 0-3 Normal 0-3 [facility] Comment on above: Performed By: #### 1 3384229 ####[address] [address] Mucus Ql (Urine sed) TRACE Normal [facility] Comment on above: Performed By: #### 1 0727032 ####[address] [address] Nitrite Ql (U) Positive Abnormal Negative [facility] Comment on above: Performed By: #### 1 9880814 ####[address] [address] pH (U) 6.0 [pH] Invalid Interpretation Code 5.0-9.0 [facility] Comment on above: Performed By: #### 1 4903603 ####[address] [address] Protein (U) [Mass/Vol] Negative Normal Negative [facility] Comment on above: Performed By: #### 1 8788069 ####[address] [address] Specific gravity (U) [Rel density] 1.010 Invalid Interpretation Code 1.005-1.030 [facility] Comment on above: Performed By: #### 1 5394411 ####[facility] [address] [place] [address] Type of Urine collection method Clean Catch Normal [facility] Comment on above: Performed By: #### 1 4595559 ####[facility] [address] [place] [address] Urobilinogen Qn (U) 0.2 {Catarino'U}/dL Normal 0.0-1.0 [facility] Comment on above: Performed By: #### 1 5981298 ####[facility] [address] [place] [address] WBC Auto Ql (U) 1+ Abnormal Negative [facility] Comment on above: Performed By: #### 1 2553824 ####[facility] [address] [place] [address] WBC LM.HPF (Urine sed) [#/Area] 26-30 Abnormal 0-5 [facility] Comment on above: Performed By: #### 1 2458809 ####[facility] [address] [place] [address] Consent for Treatmenton 04-30 Consent for Treatment [id number]#1.00CD: 127 Normal [facility] Consent for Treatmenton Consent for Treatment [id number]#1.00CD: 127 Normal [facility] Heart and Vascular Office/Cl inic Noteon [...] 1 month. (more content not included)... Normal [facility] Comment on above: Result Comment: Elec tronically Signed By: Samuel VELAZQUEZ, Benjamin Lopez\.cee\Date and Time Signed: 05/05/23 16:11 EDT Physician Orderon 05-05-2023 Physician Order [id number]#1.00CD :127 Normal [facility] Stress EKG Tracingson 2022 Stress EKG Tracings [id number]#1.00CD: 127 Normal [facility] Consent for Treatmenton 03-31 Consent for Treatment [id number]#1.00CD: 127 Normal [facility] T3Free SerPl-mCncon 04-06-20 23 Free T3 [Mass/Vol] 3.3 pg/mL Normal 2.3-4.1 [facility] Comment on above: Order Comment: Speci men Type: BLOOD SPECIMEN Ordering Facility: [facility] Address: [address] [place] [address] Performed By: #### 3 051-0, 3024-7, 3016-3 #### [facility] CLIA [id number] [address] [place] [address] [place] T4 Free SerPl-mCncon 023 Free T4 [Mass/Vol] 1.4 ng/dL Normal 0.9-1.7 [facility] Comment on above: Order Comment: Rozina florez Type: BLOOD SPECIMEN Ordering Facility: [facility] Address: [address] [place] [address] Performed By: #### 3 051-0, 3024-7, 3016-3 #### [facility] CLIA [id number] [address] [place] [address] [place] THYROGLOBULIN ABon 3 Thyroglobulin Ab Qn 1.8 [IU]/mL Normal <4.0 [facility] Comment on above: Order Comment: Rozina florez Type: BLOOD SPECIMEN Order[facility] Address: [address] [place] [address] Result Comment: The Thyroglobulin Antibody test was performed using the Chris Georgina Unicel DXI paramagnetic particle chemiluminescent immunoassay method. Results obtained with different assay methods or kits cannot be used interchangeably. Performed By: #### T JASON #### [facility] CLIA [id number] [address] [place] [address] THYROID PEROXIDASE ANTIBODY BLOODon 04-06-2023 [place]n 4572.0 [IU]/mL High <5.6 [facility] Comment on above: Order Comment: Speci men Type: BLOOD SPECIMEN Ordering Facility: [facility] Address: [address] [place] [address] Result Comment: Thyr oid Peroxidase Antibody test is used as an aid in diagnosis of autoimmune thyroid disease. Clinical correlation is required. Performed By: #### M ICRO #### [facility] CLIA [id number] [address] [place] [address] [place] TSH SerPl-aCncon 04-06-2023 TSH Qn 6.050 m[IU]/L High 0.270-4.200 [facility] Comment on above: Order Comment: Rozina florez Type: BLOOD SPECIMENOrdering Facility: [facility] Address: [address] [place] [address] Result Comment: If t he patient is , TSH reference range varies by gestational period: First Trimester (weeks 9-12): 0.180-2.990 mIU/L Second Trimester: 0.110-3.980 mIU/L Third Trimester: 0.480-4.710 mIU/L Noe Ramon et al. A Practical Approach for the Verifications and Determination of Site- and Trimester-Specific Reference Intervals for Thyroid Function tests in . Thyroid, 2019:29:3:412-420. Gregor E, et al. 2017 Guidelines of the [place] Thyroid Association for the Diagnosis and Management of Thyroid Disease during and the . Thyroid, 2017:27:3:315-389. Performed By: #### 3 051-0, 3024-7, 3016-3 ####[facility] [id number] [address] [place] CNOVon 0509-2023 CNOV Office Visit (ENDOLN ) -------- EMMY DALE ([id number]) 1 F Date Time Provider Department 03/08/23 4:20 PM MARTINA RODRIGUEZ During your visit today, we recorded the [...] Arthritis Father in blood . was at [facility] when baby thought to be [...] involuntary motions. (more content not included)... Normal [facility] Vital Signs Date Time Vital Sign Value Performing Clinician Facility 09-15-2023 13:30-0500 Body height 162.56 cm [employer] Other [facility] Other 09-15-2023 13:30-0500 Body mass index (BMI) [Ratio] 30.21 kg/m2 [employer] Other [facility] Other 09-15-2023 13:30-0500 Body weight 79.83 kg [employer] Other [facility] Other 09-15-2023 13:30-0500 Diastolic blood pressure 68 mm[Hg] [employer] Other [facility] Other 09-15-2023 13:30-0500 Respiratory rate 18 /min [employer] Other [facility] Other 09-15-2023 13:30-0500 SaO2% (BldA) [Mass fraction] 99 % [employer] Other [facility] Other 09-15-2023 13:30-0500 Systolic blood pressure 118 mm[Hg] [employer] Other [facility] Other 07-12-2023 09:15-0400 Body height 162.56 cm Lyndon Easterwood Other [facility] Other 07-12-2023 09:15-0400 Body mass index (BMI) [Ratio] 29.86 kg/m2 Lyndon Easterwood Other [facility] Other 07-12-2023 09:15-0400 Body temperature 98.6 [degF] Lyndon Easterwood Other [facility] Other 07-12-2023 09:15-0400 Body weight 78.93 kg Lyndon [employer] Other [facility] Other 07-12-2023 09:15-0400 Diastolic blood pressure 70 mm[Hg] Lyndon Easterwood Other [facility] Other 07-12-2023 09:15-0400 Respiratory rate 20 /min Lyndon Easterwood Other [facility] Other 07-12-2023 09:15-0400 SaO2% (BldA) [Mass fraction] 98 % Lyndon Easterwood Other [facility] Other 07-12-2023 09:15-0400 Systolic blood pressure 112 mm[Hg] Lyndon Easterwood Other [facility] Other 05-25-2023 17:30-0400 Body height 162.56 cm Lyndon Easterwood Other [facility] Other 05-25-2023 17:30-0400 Body mass index (BMI) [Ratio] 30.04 kg/m2 Lyndon Easterwood Other [facility] Other 05-25-2023 17:30-0400 Body temperature 98.2 [degF] Lyndon Easterwood Other [facility] Other 05-25-2023 17:30-0400 Body weight 79.38 kg Lyndon Easterwood Other [facility] Other 05-25-2023 17:30-0400 Diastolic blood pressure 72 mm[Hg] Lyndon Easterwood Other [facility] Other 05-25-2023 17:30-0400 Respiratory rate 20 /min Lyndon Easterwood Other [facility] Other 05-25-2023 17:30-0400 SaO2% (BldA) [Mass fraction] 99 % Lyndon Easterwood Other [facility] Other 05-25-2023 17:30-0400 Systolic blood pressure 110 mm[Hg] Lyndon Easterwood Other [facility] Other 03-08-2023 16:13-0400 Body weight 83.92 kg Martina Rodriguez MD, PhD Work Phone: [facility] 03-08-2023 16:13-0400 Diastolic blood pressure 76 mm[Hg] Martina Rodriguez MD, PhD Work Phone: [facility] 03-08-2023 16:13-0400 Systolic blood pressure 116 mm[Hg] Martina Rodriguez MD, PhD Work Phone: [facility] 08-05-2022 16:00-0400 Body height 162.56 cm Lyndon Easterwood Other [facility] Other 08-05-2022 16:00-0400 Body mass index (BMI) [Ratio] 32.78 kg/m2 Lyndon Dalal Other [facility] Other 08-05-2022 16:00-0400 Body temperature 98 [degF] Lyndon Dalal Other [facility] Other 08-05-2022 16:00-0400 Body weight 86.64 kg Lyndon Dalal Other [facility] Other 08-05-2022 16:00-0400 Diastolic blood pressure 76 mm[Hg] Lyndon Dalal Other [facility] Other 08-05-2022 16:00-0400 Respiratory rate 20 /min Lyndon Dalal Other [facility] Other 08-05-2022 16:00-0400 SaO2% (BldA) [Mass fraction] 99 % Lyndon Dalal Other [facility] Other 08-05-2022 16:00-0400 Systolic blood pressure 122 mm[Hg] Lyndon Dalal Other [facility] Other Encounters Encounter Date Encounter Type Care Provider Facility Start: 07-05-2024 End: 07-05-2024 ambulatory DAMI GONGORA Not Available Start: 06-25-2024 End: 06-25-2024 ambulatory DAMI ROLAN Not Available Start: 06-25-2024 End: 06-25-2024 ambulatory LELE ALEJO Facility[place] Start: 06-12-2024 End: 06-12-2024 ambulatory DAMI GONGORA [facility] Start: 06-04-2024 End: 06-04-2024 ambulatory LELE ALEJO Not Available Start: 05-14-2024 End: 05-14-2024 ambulatory DAMI R ROLAN [facility] Start: 05-08-2024 End: 05-08-2024 ambulatory DAMI ROLAN Not Available Start: 04-09-2024 End: 04-09-2024 ambulatory DAMI ROLAN Not Available Start: 04-04-2024 ambulatory Dami R ROLAN Facility: [facility] Start: 03-12-2024 End: 03-12-2024 ambulatory DAMI ROLAN Not Available Start: 02-24-2024 End: 02-24-2024 ambulatory DAMI ROLAN Not Available Start: 12-04-2023 End: 12-04-2023 ambulatory Lyndon Joseerwood Other [facility] Other Start: 12-04-2023 Encounter by PEAK-IT Lyndonjessica Garciaerwood [facility] Start: 11-05-2023 End: 11-05-2023 ambulatory Lyndon Easterwood Other [facility] Other Start: 11-05-2023 Encounter by PEAK-IT Lyndon Garciaerwood [facility] Start: 10-25-2023 End: 10-25-2023 ambulatory Lyndon John Garciaerwood Facility:[facility] Start: 10-10-2023 End: 10-10-2023 ambulatory Lyndon Easterwood Other [facility] Other Start: 10-10-2023 Telephone encounter Lyndon Joseerwood [facility] Start: 09-26-2023 End: 09-26-2023 ambulatory Lyndon Easterwood Other [facility] Other Start: 09-26-2023 Telephone encounter Lyndon Joseerwood [facility] Start: 09-18-2023 End: 09-18-2023 ambulatory Lyndon Easterwood Other [facility] Other Start: 09-18-2023 Telephone encounter Lyndon Fallwood [facility] Start: 09-15-2023 End: 09-15-2023 ambulatory LYNDON [facility] [employer] Other Start: 09-15-2023 Office outpatient visit 25 minutes Lyndon Fallcanton [facility] Start: 08-18-2023 End: 08-18-2023 [facility] Start: 08-05-2023 Get Medical Advice Martina Rodriguez MD, PhD Work Phone: Endocrinology Comment on above: lab orders Start: 07-22-2023 End: 07-22-2023 ambulatory Lyndon [facility] Other [facility] Other Start: 07-22-2023 Telephone encounter Lyndon Dalal [facility] Start: 07-12-2023 End: 07-12-2023 [facility] Other Start: 07-12-2023 Office outpatient visit 25 minutes Lyndon Fallwood [facility] Start: 07-12-2023 Telephone encounter Lyndon Fallwood [facility] Start: 07-08-2023 End: 07-08-2023 ambulatory SOBEIDA THOMPSON Facility:[facility] Start: 06-27-2023 End: 06-27-2023 ambulatory Lyndon Dalal Other [facility] Other Start: 06-27-2023 Telephone encounter Lyndonjessica Garciaerwood [facility] Start: 06-21-2023 End: 06-21-2023 ambulatory SOBEIDA THOMPSON Facility:[facility] Start: 06-01-2023 End: 06-01-2023 ambulatory Benjamin BAKER Facility:[facility] Start: 06-01-2023 End: 06-01-2023 ambulatory Bill Kat Facility:[facility] Start: 05-26-2023 End: 05-26-2023 ambulatory LYNDON JOSENEDA Facility:[facility] Start: 05-25-2023 End: 05-25-2023 [facility] [employer] [facility] Start: 05-25-2023 Office outpatient visit 15 minutes Lyndon Dalal [facility] Start: 05-17-2023 End: 05-17-2023 ambulatory Benjamin BAKER Facility:[facility] Start: 05-05-2023 End: 05-05-2023 ambulatory Benjamin BAKER Facility:[facility] Start: 04-15-2023 End: 04-15-2023 ambulatory Benjamin BAKER Facility:[facility] Start: 04-06-2023 End: 04-06-2023 ambulatory MARTINA RODRIGUEZ Facility:[facility] Start: 03-08-2023 End: 03-08-2023 ambulatory MARTINA RODRIGUEZ Facility:[facility] Start: 03-08-2023 End: 03-08-2023 Patient encounter procedure Martina Rodriguez MD, PhD Work Phone: Endocrinology Comment on above: Vikki's thyroidi tis (Primary Dx) Start: 02-28-2023 End: 02-28-2023 ambulatory Lyndon Dalal Other [facility] Other Start: 02-28-2023 Telephone encounter Lyndon Dalal [facility] Start: 02-21-2023 End: 02-21-2023 ambulatory HAND SEWER Lyndon Dalal Work Phone: [facility] Work Phone: Start: 02-21-2023 End: 02-21-2023 Discharged Recurring HAND SEWER Lyndon Dalal Work Phone: [facility] [place] Work Phone: Start: 08-09-2022 End: 08-09-2022 ambulatory Lyndon Dalal Other [facility] Other Start: 08-09-2022 Telephone encounter Lyndon Dalal [facility] Start: 08-05-2022 End: 08-06-2022 Emergency department patient visit Lyndon Dalal Facility:[facility] Start: 08-05-2022 End: 08-05-2022 ambulatory Lyndon Dalal Other [facility] Other Start: 08-05-2022 Office outpatient visit 40 minutes Lyndon Dalal [facility] Plan of Treatment Date Care Activity Detail Author Start: 08-08-2023 End: 10-08-2023 Thyrotropin [Units/volume] in Serum or Plasma TSH BLD Lab Routine Vikki's thyroiditis Expected: 08/08/2023, Expires: 10/08/2023 [facility] Work Phone: Comment on above: Expected: 08/08/2023 , Expires: 10/08/2023 Start: 08-08-2023 End: 10-08-2023 Thyroxine (T4) free [Mass/volume] in Serum or Plasma T4 FREE/FREE THYROX Lab Routine Vikki's thyroiditis Expected: 08/08/2023, Expires: 10/08/2023 [facility] Work Phone: Comment on above: Expected: 08/08/2023 , Expires: 10/08/2023 Start: 07-07-2023 Urine microalbumin profile [facility] Start: 07-01-2023 Covid-19 Vaccine () Covid-19 Vaccine () [facility] Start: 07-01-2023 Influenza vaccination Influenza Vacc ine (#1) [facility] Start: 03-31-2023 End: 05-31-2023 Thyroglobulin Ab [Units/volume] in Serum or Plasma THYROGLOBULIN AB Lab Routine Vikki's thyroiditis Expected: 03/31/2023, Expires: 05/31/2023 [facility] Work Phone: Comment on above: Expected: 03/31/2023 , Expires: 05/31/2023 Start: 03-31-2023 End: 05-31-2023 THYROID PEROXIDASE ANTIBODY BLOOD THYROID PEROXIDASE ANTIBODY BLOOD Lab Routine Vikki's thyroiditis Expected: 03/31/2023, Expires: 05/31/2023 [facility] Work Phone: Comment on above: Expected: 03/31/2023 , Expires: 05/31/2023 Start: 03-31-2023 End: 05-31-2023 Thyrotropin [Units/volume] in Serum or Plasma TSH BLD Lab Routine Vikki's thyroiditis Expected: 03/31/2023, Expires: 05/31/2023 [facility] Work Phone: Comment on above: Expected: 03/31/2023 , Expires: 05/31/2023 Start: 03-31-2023 End: 05-31-2023 Thyroxine (T4) free [Mass/volume] in Serum or Plasma T4 FREE/FREE THYROX Lab Routine Vikki's thyroiditis Expected: 03/31/2023, Expires: 05/31/2023 [facility] Work Phone: Comment on above: Expected: 03/31/2023 , Expires: 05/31/2023 Start: 03-31-2023 End: 05-31-2023 Triiodothyronine (T3) Free [Mass/volume] in Serum or Plasma T3 FREE BLD Lab Routine Vikki's thyroiditis Expected: 03/31/2023, Expires: 05/31/2023 [facility] Work Phone: Comment on above: Expected: 03/31/2023 , Expires: 05/31/2023 Start: 10-31-2022 DEPRESSION ASSESSMENT DEPRESSION ASS ESSMENT [facility] Start: 2021 PAP TESTING PAP TESTING [facility] Start: 02-02-2021 COVID-19 VACCINE (3 - Booster for Pfizer series) COVID-19 VACCINE (3 - Booster for Pfizer series) [facility] Start: 2018 CHLAMYDIA SCREENING (18-24) CHLAMYDIA SCREENING (18-24) [facility] Start: 02-02-2019 GC (GONORRHEA) SCREE MICHELLE (18-24) GC (GONORRHEA) SCREENING (18-24) [facility] Start: 2018 HEPATITIS C SCREENING HEPATITIS C SC REENING [facility] Start: 2018 HIV SCREENING HIV SCREENING [facility] Start: 2016 Meningococcal B Vacc ine: Consider Based On Risk (2 of 2 - Risk Bexsero 2-dose series) Meningococcal B Vaccine: Consider Based On Risk (2 of 2 - Risk Bexsero 2-dose series) [facility] Start: 2016 MENINGOCOCCAL B: Con manager hospital based on risk (2 of 2 - Risk Bexsero 2-dose series) MENINGOCOCCAL B: Consider based on risk (2 of 2 - Risk Bexsero 2-dose series) [facility] Start: 2014 PEDS TO ADULT TRANSI TION ANNUAL ASSESSMENT PEDS TO ADULT TRANSITION ANNUAL ASSESSMENT [facility] Start: 2012 PEDS TO ADULT TRANSI TION INITIAL DISCUSSION PEDS TO ADULT TRANSITION INITIAL DISCUSSION [facility] [place] [facility] Immunizations Immunization Date Immunization Notes Care Provider Fa [facility] 07-19-2022 influenza, injectabl e, quadrivalent, contains preservative Lyndon Easterwood Other [facility] Other 07-19-2022 influenza virus vaccine, unspecified formulation Martina Rodriguez MD, PhD Work Phone: [facility] 12-08-2020 Do not use COVID-19 Pfizer 2 dose Lyndon Easterwood Other [facility] Other 11-17-2020 Do not use COVID-19 Pfizer 2 dose Lyndon Easterwood Other [facility] Other 07-31-2020 influenza, injectabl e, quadrivalent, contains preservative Lyndon Easterwood Other [facility] Other 10-18-2016 influenza, injectabl e, quadrivalent, contains preservative Martina Rodriguez MD, PhD Work Phone: [facility] 08-04-2015 influenza, injectabl e, quadrivalent, contains preservative Martina Rodriguez MD, PhD Work Phone: [facility] 04-23-2014 human papilloma viru s vaccine, quadrivalent Martina Rodriguez MD, PhD Work Phone: [facility] 09-29-2013 human papilloma viru s vaccine, quadrivalent Martina Rodriguez MD, PhD Work Phone: [facility] 07-07-2013 human papilloma viru s vaccine, quadrivalent Martina Rodriguez MD, PhD Work Phone: [facility] 07-07-2013 meningococcal polysaccharide (groups A, C, Y and W-135) diphtheria toxoid conjugate vaccine (MCV4P) Martina Rodriguez MD, PhD Work Phone: [facility] Work Phone: 07-07-2013 tetanus toxoid, redu ollie diphtheria toxoid, and acellular pertussis vaccine, adsorbed Martina Rodriguez MD, PhD Work Phone: [facility] 08-04-2009 influenza virus vaccine, unspecified formulation Martina Rodriguez MD, PhD Work Phone: [facility] 07-05-2008 hepatitis A vaccine, unspecified formulation Martina Rodriguez MD, PhD Work Phone: [facility] 09-09-2007 influenza virus vaccine, unspecified formulation Martina Rodriguez MD, PhD Work Phone: [facility] Work Phone: 06-19-2007 hepatitis A vaccine, unspecified formulation Martina Rodriguez MD, PhD Work Phone: [facility] 06-19-2007 varicella virus vaccine Parth Rodriguez MD, PhD Work Phone: [facility] 09-14-2006 influenza virus vaccine, unspecified formulation Martina Rodriguez MD, PhD Work Phone: [facility] 05-13-2006 diphtheria, tetanus toxoids and acellular pertussis vaccine Martina Rodriguez MD, PhD Work Phone: [facility] Work Phone: 05-13-2006 measles, mumps and rubella virus vaccine Martina Rodriguez MD, PhD Work Phone: [facility] Work Phone: 05-13-2006 poliovirus vaccine, inactivated Martina Rodriguez MD, PhD Work Phone: [facility] Work Phone: 05-13-2006 varicella virus vaccine Parth Rodriguez MD, PhD Work Phone: [facility] Work Phone: 07-26-2005 influenza virus vaccine, unspecified formulation Martina Rodriguez MD, PhD Work Phone: [facility] Work Phone: 07-30-2004 influenza virus vaccine, unspecified formulation Martina Rodriguez MD, PhD Work Phone: [facility] Work Phone: 06-30-2002 diphtheria, tetanus toxoids and acellular pertussis vaccine Martina Rodriguez MD, PhD Work Phone: [facility] Work Phone: 06-30-2002 poliovirus vaccine, inactivated Martina Rodriguez MD, PhD Work Phone: [facility] Work Phone: 04-04-2002 haemophilus influenz ae type b vaccine, HbOC conjugate Martina Rodriguez MD, PhD Work Phone: [facility] Work Phone: 04-04-2002 measles, mumps and rubella virus vaccine Martina Rodriguez MD, PhD Work Phone: [facility] Work Phone: 12-16-2001 hepatitis B vaccine, pediatric or pediatric/adolescent dosage Martina Rodriguez MD, PhD Work Phone: [facility] Work Phone: 12-16-2001 pneumococcal conjuga te vaccine, 7 valdenny Rodriguez MD, PhD Work Phone: [facility] Work Phone: 09-30-2001 pneumococcal conjuga te vaccine, Shaq Rodriguez MD, PhD Work Phone: [facility] Work Phone: 06-24-2001 diphtheria, tetanus toxoids and acellular pertussis vaccine Martina Rodriguez MD, PhD Work Phone: [facility] Work Phone: 06-24-2001 haemophilus influenz ae type b vaccine, HbOC conjugate Martina Rodriguez MD, PhD Work Phone: [facility] Work Phone: 06-24-2001 pneumococcal conjuga te vaccine, Shaq Rodriguez MD, PhD Work Phone: [facility] Work Phone: 04-12-2001 diphtheria, tetanus toxoids and acellular pertussis vaccine Martina Rodriguez MD, PhD Work Phone: [facility] Work Phone: 04-12-2001 haemophilus influenz ae type b vaccine, HbOC conjugate Martina Rodriguez MD, PhD Work Phone: [facility] Work Phone: 04-12-2001 poliovirus vaccine, inactivated Martina Rodriguez MD, PhD Work Phone: [facility] Work Phone: 02-03-2001 diphtheria, tetanus toxoids and acellular pertussis vaccine Martina Rodriguez MD, PhD Work Phone: [facility] Work Phone: 02-03-2001 haemophilus influenz ae type b vaccine, HbOC conjugate Martina Rodriguez MD, PhD Work Phone: [facility] Work Phone: 02-03-2001 poliovirus vaccine, inactivated Martina Rodriguez MD, PhD Work Phone: [facility] Work Phone: 2000 hepatitis B vaccine, pediatric or pediatric/adolescent dosage Martina Rodriguez MD, PhD Work Phone: [facility] Work Phone: 2000 hepatitis B vaccine, pediatric or pediatric/adolescent dosage Martina Rodriguez MD, PhD Work Phone: [facility] Work Phone: Payers Date Payer Category Payer Private Health Insurance [id number] 2024 Unknown [id number] 2023 Unknown [id number] 2022 Private Health Insurance [id number] 2022 Self-pay 2020 Private Health Insurance [id number] 2020 Private Health Insurance [id number] 2000 Unknown [id number] 2.16.840.1.692049.3.579.2.727 2000 Unknown [id number] 2.16.840.1.841363.3.579.2.7 2000 Unknown [id number] 2.16.840.1.381775.3.579.2.727 2000 Unknown [id number] 2.16.840.1.592657.3.579.2.727 2000 Unknown [id number] 2.16.840.1.023670.3.579.2.727 2000 Unknown [id number] 2.16.840.1.500995.3.579.2.727 2000 Unknown [id number] 2.16.840.1.903424.3.579.2.727 2000 Unknown [id number] 2.16.840.1.660535.3.579.2.727 2000 Unknown [id number] 2.16.840.1.622751.3.579.2.727 2000 Unknown [id number] 2.16.840.1.843678.3.579.2.7 2000 Unknown [id number] 2.16.840.1.246247.3.579.2.727 2000 Unknown [id number] 2.16.840.1.612231.3.579.2.1286 2000 Unknown [id number] 2.16.840.1.512346.3.579.2.1286 2000 Unknown [id number] 2.16.840.1.546378.3.579.2.6 2000 Unknown [id number] 2.16840.1.614469.3.579.2.7 2000 Unknown [id number] 2.16840.1.450772.3.579.2.9 2000 Unknown [id number] 2.16840.1.872021.3.579.2.9 2000 Unknown [id number] 2.16.840.1.489922.3.579.2.9 2000 Unknown [id number] 2.16.840.1.908828.3.579.2.1258 2000 Unknown [id number] 2.16.840.1.398298.3.579.2.9 2000 Unknown [id number] 2.16.840.1.990545.3.579.2.9 2000 Unknown [id number] 2.16.840.1.843371.3.579.2.1259 Private Health Insurance [facility] [id number] Unknown [id number] [id number] Unknown [facility] Employees [id number] Unknown [id number] 2.16.840.1.211680.3.579.2.531 Social History Date Type Detail Facility Start: 03-08-2023 Sex Assigned At N [facility] Other Start: 09-27-2014 End: 08-05-2022 Tobacco smoking status NHIS Never smoked tobacco [facility] History of tobacco use Passive smoker [facility] Start: 03-08-2023 [facility] Start: 2000 Sex Assigned At Not on file [facility] Start: 2000 Sex Assigned At Female F [facility] Start: 03-08-2023 History of Social function [facility] Clinical Notes 09-09-2009 to 09-15-2023 [...] in office today for physical therapy to [facility]. Discussed continuation of [id number] medications as needed. Take muscle relaxer as [...] in office today for physical therapy to [facility]. Discussed continuation of [id number] medications as needed. Take muscle relaxer as [...] that were not corrected during review process. [facility] Other 09-12-2023 Evaluation note* Encounter Date Diagnosis [...] that were not corrected during review process. [facility] Other 07-26-2023 Evaluation note* Encounter Date Diagnosis [...] that were not corrected during review process. [employer] Other 06-18-2023 NoteEchocardiology Procedure Exam Date/Time Accession # Ordering ECG Stress Exercise 04/15/2023 08:43 EDT [id number] Benjamin Baker MD CPT code 64753 Reason for Exam (ECG Stress Exercise) I95.1;Dizziness [...] Benjamin Baker MD Transcribed by: angela Technologist: [facility]06-16-2023 Note Echocardiology Procedure Exam Date/Time Accession # Ordering Echo Transthoracic 04/15/2023 09:42 EDT [id number] Benjamin Baker MD Complete CPT code 19794 79664 Reason for Exam (Echo Transthoracic Complete) I95.9;Hypotension Report [facility] [address] [place] [address] Adult Echocardiogram Report Name: EMMY DALE Study Date: 04/15/2023 09:02 AM BP: 105/71 mmHg Patient Location: [facility] HR: 75 : 2000 Gender: Female Height: 63 in Age: 22 yrs Ethnicity: [facility] Weight: 178 lb Reason For Study: Hypotension BSA: 1.8 m2 History: No cardiac history per patient Ordering Physician: Samuel^Benjamin^John Referring Physician: Benjamin Baker Performed By: Jonelle Alvarez [facility] Interpretation Summary Ejection Fraction = 60-65%. [...] cm/sec E/E' Lat: 3.0 Med Peak E' [place]: 14.0 cm/sec E/E' Med: 4.4 TR max leighton: 226.5 cm/sec RAP systole: 3.0 mmHg AV VR: 0.72 TR max P.5 mmHg RVSP(TR): 23.5 mmHg FINAL REPORT Dictated: 04/15/2023 9:02 am Benjamin Baker MD Signed (Electronic Signature): 04/15/2023 5:35 pm Signed by: Benjamin Baker MD Transcribed by: YOVANI Technologist: [facility]05-09-2023 Note HNO ID: [id number] Author: Martina Rodriguez MD, PhD Service: ? [...] Arthritis Father in blood . was at [facility] when baby thought to be [...] Plan: Will monitor thyroid (more content not included)...[facility] 03-08-2023 History of Present illness [...] Arthritis Father in blood . was at [facility] when baby thought to be [...] Martina Rodriguez MD, PhD documented in this encounter[facility] Evaluation note* Encounter Date Diagnosis [...] I would recommend referral to a different adhesive bandage machine operator. Patient does have the name of an adhesive bandage machine operator that she would like referred to. We will put that referral in today. Dr. Roger Kim - [facility] Endocrinology, [facility] February, Dizziness (ICD-10 - R42) Discussed her [...] that were not corrected during review process. [employer] Other 10-06-2022 Evaluation note* Encounter Date Diagnosis [...] to ER, I highly recommend she call [facility] the second she leaves our office to follow-up.She needs to let them know about her concerns.I explained to her that even though she may assume that her [facility]ER will not listen her , I still want her to reach out to that office and explained to them her current concerns. She wants to know what the immediate treatment would be and work-up for spinal headache and possible leak however I cannot provide her with this information as I am not [facility]ICE [facility]. Jul, Hip pain (ICD-10 - M25.559) While [...] I did discuss with her concerns over [id number] medications during breast-feeding. Discussed recommendations currently and please bring this up to [facility] as well for further recommendations. Does not [...] I would like her to follow-up with [facility] or go to ER regarding this dizziness and we can follow-up in office after. If nothing comes from an [facility]/spinal headache/spinal leak standpoint, we can order CT [...] that were not corrected during review process. [employer] Other 11-10-2009 History of Past illness Narrative* Problem Noted Date Resolved Date Constipation 09/09/2009 08/28/2014 documented as of this encounter (statuses as of 03/09/2023) [facility]11-[facility] History of Past illness Narrative* Problem Noted Date Diagnosed Date Resolved Date Constipation 09/09/2009 08/28/2014 documented as of this encounter (statuses as of 08/09/2023) [facility] noteNo InformationNort [facility] Other Evaluation note* Diagnosis Vikki's thyroiditis- Primary Chronic lymphocytic thyroiditis documented in this encounter [facility] noteNo assessment information availableC[facility] Work Phone: Evaluation note* Diagnosis Vikki's thyroiditis- Primary Chronic lymphocytic thyroiditis documented in this encounter [facility] general Narrative - Reported* Type Description Date Medical History Asthma Medical History Vasovagal syndrome- childhood (r esolved) Medical History Exercise-induced asthma Medical History Pityriasis rosea Medical History Tachycardia Medical History Vikki's thyroiditis Medical History Pre-eclampsia Surgical History [place] teeth extract 2017 Surgical History Vaginal childbirth 03/2022 Hospitalization History See surgical [employer] Other History general Narrative - Reported* Type Description Date Medical History Exercise-induced asthma Medical History Pityriasis rosea Medical History Tachycardia Medical History Vikki's thyroiditis Medical History Asthma Medical History Pre-eclampsia Medical History Hypotension Surgical History [place] teeth extract 2017 Surgical History Vaginal childbirth 03/2022 Hospitalization History See surgical [employer] Other History general Narrative - Reported* Type Description Date Medical History Exercise-induced asthma Medical History Pityriasis rosea Medical History Tachycardia Medical History Vikki's thyroiditis Medical History Asthma Medical History Pre-eclampsia Medical History Hypotension Medical History GERD (gastroesophageal reflux di sease) Surgical History [place] teeth extract 2016 Surgical History Vaginal childbirth 03/2022 Surgical History EGD/colonoscopy 2011 Hospitalization History See surgical [employer] Other History general Narrative - Reported* Type Description Date Medical History Exercise-induced asthma Medical History Pityriasis rosea Medical History Tachycardia Medical History Vikki's thyroiditis Medical History Asthma Medical History Pre-eclampsia Medical History Hypotension Medical History GERD (gastroesophageal reflux di sease) Medical History Thyromegaly Surgical History [place] teeth extract 2017 Surgical History Vaginal childbirth 03/2022 Surgical History EGD/colonoscopy 2011 Hospitalization History See surgical [employer] Other Hismydl general Narrative - Reported* Type Description Date Medical History Exercise-induced asthma Medical History Pityriasis rosea Medical History Tachycardia Medical History Vikki's thyroiditis Medical History Asthma Medical History Pre-eclampsia Medical History Hypotension Medical History GERD (gastroesophageal reflux di sease) Medical History Thyromegaly Medical History Other idiopathic scoliosis, thor acic region Surgical History [place] teeth extract 2017 Surgical History Vaginal childbirth 03/2022 Surgical History EGD/colonoscopy 2011 Hospitalization History See surgical [employer] Other Summary Purpose Family History No Family [...] gastriti s with hemorrhage (K29.01) Referral Organization [facility] [employer] [place] Referring Provider First Name Lyndon Referring Provider Last Name [facility] Referring Provider Specialty Nurse Pract itioner Referred Organization [facility] Gastroenterolo gy Referred Provider Patricio Urena Referred Address [address] [facility] [address] ,[place],[address] Referred Provider Specialty Gastroentero logy Referral Priority Routine General Notes [facility] 023 10:08:56 AM >Received today. [facility] request us to fill out their form and fax to them. They will review the referral and call patient to schedule them. Referral was fax. [facility] 07/12/2023 01:31:38 PM >Per telephone encounter, patient wants to try [facility]. Sent P2P Reason *03/08 Dr. Hawa Kim - [facility] Endocrinology, [facility]; [employer]- please send this note with 2 previous notes Diagnosis 1 Vikki's thyroidi tis (E06.3) Referral Organization [facility] [employer] Ava Rivera Referring Provider First Name Lyndon Referring Provider Last Name [facility] Referring Provider Specialty Nurse Alfred barron Referred Organization [facility] Referred Address [address] [place], [place],[address] Referred Provider Specialty Endocrinolog y Referral Priority Routine General Notes [facility] 023 01:21:05 PM >Received today and referral was fax with the [facility] Form. They will review and call patient to schedule Reason *03/08 Dizzines s- TERRENCE; Please send this note with 2 previous notes Diagnosis 1 Dizziness (R42) Referral Organization [facility] [employer] sally [place] Referring Provider First Name Lyndon Referring Provider Last Name [facility] Referring Provider Specialty Nurse Pracrosalba barron Referred Organization [facility] Referred Provider Jose Dominguez Referred Address [address] [place],[address] Referred Provider Specialty Neurology Referral Priority Routine [...] section and content) DATE CREATED AUTHOR 08/06/2022 [facility] DATE CREATED AUTHOR AUTHOR'S ORGANIZ ATION 08/20/2023 [facility] DATE CREATED AUTHOR AUTHOR'S ORGANIZ ATION 04/06/2024 Millan Nilton [facility] DATE CREATED AUTHOR AUTHOR'S ORGANIZ ATION 05/03/2024 [facility] DATE CREATED AUTHOR AUTHOR'S ORGANIZ ATION 05/18/2024 [facility] DATE CREATED AUTHOR AUTHOR'S ORGANIZ ATION 06/14/2024 [facility] DATE CREATED AUTHOR AUTHOR'S ORGANIZ ATION 06/26/2024 [facility] DATE CREATED AUTHOR AUTHOR'S ORGANIZ ATION 07/06/2024 [facility] d[facility] Specialists EPIC DATE CREATED AUTHOR AUTHOR'S ORGANIZ ATION 07/07/2024 [facility] y[facility] REASON FOR VISIT (unrecogniz ed section and content) Reason Comments New Patient Source Comments (unrecognize d section and content) In the event this informatio n is protected by the Federal Confidentiality of Alcohol and Drug Abuse Patient Records regulations: The Federal rules restrict any use of the information to criminally investigate or prosecute any alcohol or drug abuse patient.[facility] CenterIn the event this information is protected by the Federal Confidentiality of Alcohol and Drug Abuse Patient Records regulations: The Federal rules restrict any use of the information to criminally investigate or prosecute any alcohol or drug abuse patient.[facility] Care Teams (unrecognized sec tion and content) Is/It Project Manager Relationship Specialty Start Date End Date Eufemianeda Lyndon JAMES [address] [address] PCP - General Family Medicine 03/08/23 Yoselin Lyndon BUSINESS DEVELOPMENT COORDINATOR [address] [email or web address] [address] [place] [address] Referring Family [facility] 03/04/23 Team Status: Active Member Role Status Dates Lyndon Dalal APRN Primary Care Provider Active Team Status: Inactive Member Role Status Dates Lyndon Dalal APRN Primary Care Provider, Attend ing Provider Active Is/It Project Manager Relationship Specialty Start Date End Date Lyndon Dalal CNP [address] [facility] [address] [address] PCP - General Family Medicine 03/08/23 Yoselin LyndonJAMES lopez [address] [address] Referring Family Medicine 03/04/23 Goals (unrecognized section [...] BE BASED ON THE PRIMARY CLINICAL RECORDS. [employer] [facility]. provides no warranty or guarantee of the accuracy or completeness of information in this document.
== END 2024-07-12 08:30 | disposition home or self-care (01) ==
LOC: NOMS 08:30
PROVIDERS: PCP Family Medicine; Visit Provider Obstetrics & Gynecology
DX: O28.8 Other abnormal findings on antenatal screening of mother (principal); Z3A.28 28 weeks gestation of pregnancy
CPT/HCPCS: 76815

== ENCOUNTER 2024-08-04 06:28 | Outpatient (OUT) | payer OTHER, SELFPAY ==
--- NOTE | 2024-08-04 | US_ITS ---
[place] [id number] Patient Name: EMMY DALE MRN: [id number] date: 2000 Sex: F Assigned Patient Location: [facility] Current Patient Location: Accession/Order Number: [id number] Exam Date: 08/04/2024 14:04 Report Date: 08/05/2024 04:34 At the request of: LELE ALEJO Procedure: US OB BPP w non-stress EXAMINATION: US OB BPP w non-stress HISTORY:THYROID DISEASE COMPARISON: Ultrasound OB growth 07/05/2024 TECHNIQUE: Ultrasound biophysical profile was performed in the radiology department. BREATHING MOVEMENTS: 2 GROSS BODY MOVEMENTS: 2 TONE: 2 QUALITATIVE AMNIOTIC FLUID VOLUME: 2 PRESENTATION: Cephalic HEART RATE: 140.63 bpm AMNIOTIC FLUID VOLUME: 11.41 cm GESTATIONAL AGE: 32 weeks 1 day US/US OB BPP w non-stress IMPRESSION: Total biophysical profile score: 8 Electronically authenticated by: ANGELY NUR Date: 08/05/2024 04:34
--- NOTE | 2024-08-04 | US_ITS ---
[address] [address] Patient Name: EMMY DALE MRN: [id number] date: 2000 Sex: F Assigned Patient Location: [facility] Current Patient Location: Accession/Order Number: [id number] Exam Date: 08/04/2024 14:04 Report Date: 08/05/2024 06:22 At the request of: LELE ALEJO Procedure: US OB growth EXAMINATION: US OB growth HISTORY: THYROID DISEASE COMPARISON: Ultrasound OB growth 07/05/2024 FINDINGS: Heart Rate: 140.63 bpm Amniotic Fluid Volume: 11.4 cm; normal range. Number: 1 Position: Cephalic BIOMETRY: BPD: 7.87 cm; 31 weeks 4 days; 25.30 % HC: 29.00 cm; 32 weeks 0 days; 11.50 % AC: 27.31 cm; 31 weeks 3 days; 26.70 % FL: 5.86 cm; 30 weeks 4 days; 7.10 % EFW: 1723.01 g; 15.20 % FL/AC: 21.47 FL/BPD: 74.46 HC/AC: 1.06 GESTATIONAL AGE: Age by EDC: 32 weeks 1 day DUKE by EDC: 2024-09-28 Age by US: 31 weeks 3 days DUKE by US: 2024-10-03 US/US OB growth IMPRESSION: 1. Single live intrauterine with growth detailed above. Electronically authenticated by: ANGELY NUR Date: 08/05/2024 06:22
--- OUTSIDE RECORDS SUMMARY | 2024-08-04 06:30 | XMS_ITS | CCD ---
Author Organization [facility] Care Team Providers Care Ctrs Name Role Phone Lyndon Dalal Primary Care Unavailable Juancarlos Maria Attending Unavailable Juancarlos Maria Admitting Unavailable Yoselin, Lyndon Unavailable Dallas Dalal CNPa Unavailable [phone] Lyndon Dalal CNP Primary Care Provider [phone] ANKIT Dalal Primary Care Provider ANKIT Dalal Attending Provider YOSELIN, LYNDON Primary Care Unavailable MARTINA RODRIGUEZ Referring Unavailable EASTERWOOD, LYNDON Primary Care Unavailable MARTINA RODRIGUEZ Referring Unavailable MICHAEL, JERMAINEAMA M Referring Unavailable EASTERWOOD, LYNDON Primary Care Unavailable MARTINA RODRIGUEZ M Attending Unavailable Dami CANSECO Admitting Unavailable Dami CANSECO Attending Unavailable YOSELIN, LYNDON Admitting Unavailable YOSELIN, LYNDON Attending Unavailable Bill Kat Admitting Unavailable Bill [...] THOMPSON Admitting Unavailable SOBEIDA THOMPSON Attending Unavailable DONNA, SOBEIDA E Referring Unavailable EASTERWOOD, LYNDON Admitting Unavailable EASTERWOOD, LYNDON Attending Unavailable FUNMI FARIAS Attending Unavailable AJITH, DAMI R Referring Unavailable EASTERWOOD, LYNDON Primary Care Unavailable AJITH, DAMI R Referring Unavailable EASTERWOOD, LYNDON Primary Care Unavailable AJITH, DAMI R Referring Unavailable EASTERWOOD, LYNDON Primary Care Unavailable MELO, LELE L Attending Unavailable MELO, LELE L Admitting Unavailable MELO, LELE L Attending Unavailable MELO, LELE L Admitting Unavailable Easterwood, Lyndon J Attending Unavailable Easterwood, Lyndon J Primary Care Unavailable Easterwood, Lyndon J Admitting Unavailable JAITH, Dami R Attending Unavailable AJITH, Dami R Admitting Unavailable AJITH, Dami R Admitting Unavailable AJITH, Dami R Attending Unavailable Pedro Luis VELAZQUEZ, [place] Primary Care Provider [phone] AJITH, DAMI Attending Unavailable AJITH, DAMI Attending Unavailable AJITH, DAMI Attending Unavailable MELO, LELE Attending Unavailable AJITH, DAMI Attending Unavailable AJITH, DAMI Attending Unavailable MELO, LELE Attending Unavailable AJITH, DAMI Attending Unavailable Allergies Allergy Classification Reported Allergen(s) Allergy Type Date of Onset Reaction(s) Facility Sulfonamides (antibiotic) (1 source) Sulfonamides (Antibiotic); Translations: [sulfa drugs] Drug Allergy [facility] Repository (6 sources) Sulfonamides (Antibiotic); Translations: [SULFA (SULFONAMIDE ANTIBIOTICS)] Drug allergy (disorder) 5 [facility] Repository (2 sources) Sulfonamide Drug allergy [place] [facility] Other (17 sources) Substance with sulfonamide structure and antibacterial mechanism of action (substance) Drug allergy 5 rash [facility] (3 sources) Sulfonamides (Antibiotic); Translations: [sulfa drugs] Propensity to adverse reactions (disorder) [facility] Repository Medications Current Medications Medication Drug Class(es) Dates Sig (Normalized) Sig (Original) aspirin 81 mg delayed release oral tablet (3 sources) Platelet Aggregation Inhibitor, Nonsteroidal Anti-inflammatory Drug take 1 tablet by mouth in the morning aspirin 81 MG EC tablet Take 81 mg by mouth in the morning. Active calcium polycarbophil 625 mg oral tablet (3 sources) take 1 tablet by mouth once daily Calcium Polycarbophil (fiber) 625 MG tablet Take 625 mg by mouth Daily Active cyclobenzaprine hydrochloride 5 mg oral tablet (6 sources) Muscle Relaxant Start: 09-15-2023 take 1 tablet by mouth every twenty-four hours Cyclobenzaprine HCl 5 MG 1 tablet at bedtime as needed Orally Once a day for 14 days Aug, Active docusate sodium 100 mg oral capsule (3 sources) take 1 capsule by mouth once daily docusate sodium (Colace) 100 MG capsule Take 100 mg by mouth Daily Active Lecithin (2 sources) Lecithin Sunflow er Lecithin, one capsule daily Active levothyroxine sodium 0.1 mg oral tablet (15 sources) l-Thyroxine Start: 06-25-2024 take 1 tablet by mouth before mealtime levothyroxine (Synthroid) 100 MCG tablet Indications: Low blood potassium , Thyroid disease (CMS/HCC) , Hypothyroidism (acquired) (CMS/HCC) , Vikki's disease (CMS/HCC) Take 1 tablet (100 mcg) by mouth in the morning. Take before meals. 30 tablet 3 06/25/2024 Active Start: 06-28-2023 take 1 tablet by fredi th once daily levothyroxine (SYNTHROID) 25 mcg tablet Take 1 tablet by mouth once daily. 90 tablet 0 06/28/2023 Active take 1 tablet by fredi th once daily in the morning Synthroid 25 MCG 1 tablet in the morning on an empty stomach Orally Once a day for 90 days Active Comment on above: Take 1 tablet by fredi th once daily. magnesium oxide 400 mg oral tablet (3 sources) Start: 024 End: 025 take 1 tablet by mouth once daily magnesium oxide (Mag-Ox) 400 MG tablet Indications: Leg cramps Take 1 tablet (400 mg) by mouth Daily 30 tablet 6 07/24/2024 02/19/2025 Active nitrofurantoin, macrocrystals 25 mg / nitrofurantoin, monohydrate 75 mg oral capsule (2 sources) Nitrofuran Antibacterial Start: 023 take 1 capsule by mouth every twelve hours Nitrofurantoin Monohyd Macro 100 MG 1 capsule with food Orally every 12 hrs for 7 days Apr, Active ondansetron 4 mg disintegrating oral tablet (3 sources) Serotonin-3 Receptor Antagonist Start: 024 take 1 tablet by mouth every six hours for nausea ondansetron ODT (Zofran-ODT) 4 MG disintegrating tablet Indications: Nausea/vomiting in Take 1 tablet (4 mg) by mouth every 6 (six) hours if needed for nausea or vomiting for up to 30 doses 30 tablet 2 02/15/2024 Active predniSONE 20 mg oral tablet (4 sources) Start: 023 take 1 tablet by mouth once daily predniSONE 20 MG 1 tab Orally Once a day for 5 days Aug, Active Yanwnznt-Dby-Ba-FA ( 1 + IRON PO) (3 sources) Start: 024 Umojgvzp-Yvm-Wv-FA ( 1 + IRON PO) 01/20/2024 Active Vitamins (2 sources) Vitamin s OTC, daily Active tamsulosin hydrochloride 0.4 mg oral capsule (2 sources) alpha-Adrenergic Mira Start: 023 take 1 capsule by mouth every twenty-four hours Tamsulosin HCl 0.4 MG 1 capsule Orally Once a day for 14 days Apr, Active tiZANidine 2 mg oral tablet (4 sources) Central alpha-2 Adrenergic Agonist Start: 023 take 1 tablet by mouth twice daily as needed tiZANidine HCl 2 MG 1 tablet as needed Orally BID PRN for 14 days Aug, Active Completed/Discontinued Medications Medication Drug Class(es) Dates Sig (Normalized) Sig (Original) biotin 10 mg oral tablet (16 sources) take 1 tablet by fredi th every twenty-four hours Biotin 67099 MCG 1 tablet Orally Once a day OTC Not-Taking/PRN take 1 tablet by fredi th every twenty-four hours Biotin 03368 MCG 1 tablet Orally Once a day OTC Not-Taking take 1 tablet by mouth once [place] [facility] Biotin 36074 MCG 1 tablet Orally Once a day OTC Not-Taking BIOTIN ORAL Take by mouth q 24 HR. 0 Active take 1 tablet by mouth once [place] Biotin 62602 MCG 1 tablet Orally Once a day [...] Comment on above: Take 1 tablet by [facility] once daily. Iodine (14 sources) Iodine 225MCG [...] Probiotic OTC, daily Active lactobacillus rhamnosus gg [id number] unt oral capsule (1 source) Start: 5 End: 3 take 1 capsule by mouth once daily lactobacillus rhamnosus (CULTURELLE) 10 billion cell capsule Indications: Abdominal pain Take 1 capsule by mouth once daily. 30 capsule 2 04/30/2015 03/08/2023 Discontinued Comment on above: Take 1 capsule by [facility] once daily. Moringa (14 sources) Moringa 6000MG, [...] Comment on above: Take 1 capsule by [facility] once daily. pantoprazole 20 mg delayed [...] unspecified, second trimester] Onset: 05-14-2024 Episodic Other complications of (3 sources) Abnormal amniotic fluid; Translations: [Other abnormal findings on screening of mother] Onset: 07-05-2024 07-05-2024 Episodic Other inflammatory condition of skin (14 sources) Pityriasis rosea; Translations: [Pityriasis rosea] Chronic Other non-traumatic joint disorders (1 source) Pain in unspecified hip Episodic Other nutritional; endocrine; and metabolic disorders (1 source) Abnormal weight loss Episodic Other and delivery including normal (3 sources) Encounter for care and examination of lactating mother; Translations: [Third trimester ] Episodic Other screening for suspected conditions (not mental disorders or infectious disease) (3 sources) Encounter for other specified screening; Translations: [Encounter for screening for cervical length] Onset: 05-14-2024 Episodic Residual codes; unclassified (1 source) 20 weeks gestation of ; Translations: [20 weeks gestation of ] Onset: 05-14-2024 Episodic Residual codes; unclassified (3 sources) Gestation period, 27 weeks; Translations: [27 weeks gestation of ] Onset: 07-05-2024 07-05-2024 Episodic Residual codes; unclassified (2 sources) Gestation period, 31 weeks; Translations: [31 weeks gestation of ] 07-31-2024 Episodic Spondylosis; intervertebral disc disorders; other back [...] Test Name Value Interpretation Reference Range Facility Urinalysis macro (dipstick) panel (U)on 07-31-2024 Bilirubin, UA Negative Negative - 4(70) +++ mg/dL [facility] Blood, UA Negative Negative - 50 Juanito/mcL [facility] Clarity, UA Clear [facility] Color, UA Yellow [facility] Glucose, UA Negative Negative - 2000(110) ++++ mg/dL [facility] Interpretation and review of laboratory results Abnormal [facility] Ketones, UA Negative Negative - 160(16) ++++ mg/dL [facility] Leukocytes, UA Positive Negative - 500+++ Ken/mcL [facility] Comment on above: small Nitrite, UA Negative Negative - Positive [facility] pH, UA 6.5 5 - 9 [facility] Protein, UA Negative Negative - 2000(20) ++++ mg/dL [facility] Spec Grav, UA 1.010 1 - 1.03 [facility] Urobilinogen, UA 0.2 0.2 - 12 mg/dL [facility] CBC w/ Auto Diffon 4 Basophils/100 WBC (Bld) 0.4 % Normal 0.0-2.0 [facility] Comment on above: Performed By: #### 2 [id number] #### [facility] [address] [place] [address] Basophils/Leukocyt es Auto (Bld) [Pure # fraction] 0.0 E9/L Normal 0.0-0.2 [facility] Comment on above: Performed By: #### 2 [id number] #### [facility] [address] [place] [address] Eosinophils (Bld) [#/Vol] 0.2 E9/L Normal 0.0-0.5 [facility] Comment on above: Performed By: #### 2 656506 #### [facility] [address] [place] [address] Eosinophils/100 WBC (Bld) 2.9 % Normal 0.0-8.0 [facility] Comment on above: Performed By: #### 2 172793 #### [facility] [address] [place] [address] Erythrocyte distribution width (RBC) [Ratio] 13.6 % Normal 10.9-14.2 [facility] Comment on above: Performed By: #### 2 [id number] #### [facility] [address] [place] [address] Hematocrit (Bld) [Volume fraction] 37.3 % Normal 34.0-46.0 [facility] Comment on above: Performed By: #### 2 307779 #### [facility] [address] [place] [address] Hemoglobin (Bld) [Mass/Vol] 12.8 g/dL Normal 12.0-16.0 [facility] Comment on above: Performed By: #### 2 369368 #### [facility] [address] [place] [address] Lymphocytes (Bld) [#/Vol] 1.9 E9/L Normal 1.0-4.0 [facility] Comment on above: Performed By: #### 2 952767 #### [facility] [address] [place] [address] Lymphocytes/100 WBC (Bld) 24.0 % Normal 14.0-50.0 [facility] Comment on above: Performed By: #### 2 690236 #### [facility] [address] [place] [address] MCH (RBC) [Entitic mass] 30.5 pg Normal 27.0-34.0 [facility] Comment on above: Performed By: #### 2 612258 #### [facility] [address] [place] [address] MCHC (RBC) [Mass/Vol] 34.2 g/dL Normal 31.4-36.0 [facility] Comment on above: Performed By: #### 2 861842 #### [facility] [address] [place] [address] MCV (RBC) [Entitic vol] 89.0 fL Normal 80.0-100.0 [facility] Comment on above: Performed By: #### 2 687690 #### [facility] [address] [place] [address] Monocytes (Bld) [#/Vol] 0.4 E9/L Normal 0.2-1.0 [facility] Comment on above: Performed By: #### 2 160712 #### [facility] [address] [place] [address] Neutrophils (Bld) [#/Vol] 5.5 E9/L Normal 2.0-7.5 [facility] Comment on above: Performed By: #### 2 329819 #### [facility] [address] [place] [address] Neutrophils/100 WBC (Bld) 67.8 % Normal 36.0-75.0 [facility] Comment on above: Performed By: #### 2 507234 #### [facility] [address] [place] [address] Platelet mean volume (Bld) [Entitic vol] 8.3 fL Normal 6.4-10.8 [facility] Comment on above: Performed By: #### 2 049026 #### [facility] [address] [place] [address] Platelets (Bld) [#/Vol] 267.0 E9/L Normal 150.0-500.0 [facility] Comment on above: Performed By: #### 2 483380 #### [facility] [address] [place] [address] RBC (Bld) [#/Vol] 4.2 E12/L Low 4.3-5.9 [facility] Comment on above: Performed By: #### 2 295028 #### [facility] [address] [place] [address] WBC corrected for nucl RBC Auto (Bld) [#/Vol] 8.0 E9/L Normal 4.0-11.0 [facility] Comment on above: Performed By: #### 2 959911 #### [facility] [address] [place] [address] Free T4on 07-23-2024 Free T4 [Mass/Vol] 0.57 ng/dL Low 0.58-1.64 [facility] Comment on above: Performed By: #### 2 696689 #### [facility] [address] [place] [address] Lyteson 07-23-2024 Anion gap [Moles/Vol] 12 mmol/L Normal 6-16 [facility] Comment on above: Performed By: #### 2 376472 #### [facility] [address] [place] [address] Chloride [Moles/Vol] 105 mmol/L Normal 101-111 [facility] Comment on above: Performed By: #### 2 578241 #### [facility] [address] [place] [address] CO2 [Moles/Vol] 24 mmol/L Normal 21-31 [facility] Comment on above: Performed By: #### 2 557008 #### [facility] [address] [place] [address] Potassium [Moles/Vol] 3.5 mmol/L Normal 3.5-5.3 [facility] Comment on above: Performed By: #### 2 623353 #### [facility] [address] [place] [address] Sodium [Moles/Vol] 137 mmol/L Normal 135-145 [facility] Comment on above: Performed By: #### 2 429050 #### [facility] [address] [place] [address] TSHon 07-23-2024 TSH Qn 2.26 m[IU]/L Normal 0.34-5.60 [facility] Comment on above: Performed By: #### 2 713188 #### [facility] [address] [place] [address] CMPon 06-25-2024 Albumin [Mass/Vol] 3.6 g/dL Normal 3.3-5.0 [facility] Comment on above: Performed By: #### 2 167668 #### [facility] [address] [place] [address] Albumin/Globulin (S) [Mass conc ratio] 1.3 Normal 1.1-2.2 [facility] Comment on above: Performed By: #### 2 506523 #### [facility] [address] [place] [address] ALP [Catalytic activity/Vol] 63 Int._Unit/L Normal 21-98 [facility] Comment on above: Performed By: #### 2 048674 #### [facility] [address] [place] [address] ALT No additional P-5'-P [Catalytic activity/Vol] 13 Int._Unit/L Normal 6-46 [facility] Comment on above: Performed By: #### 2 345267 #### [facility] [address] [place] [address] Anion gap [Moles/Vol] 10 mmol/L Normal 6-16 [facility] Comment on above: Performed By: #### 2 579851 #### [facility] [address] [place] [address] AST [Catalytic activity/Vol] 12 Int._Unit/L Normal 5-43 [facility] Comment on above: Performed By: #### 2 177964 #### [facility] [address] [place] [address] Bilirubin [Mass/Vol] 0.7 mg/dL Normal 0.0-1.1 [facility] Comment on above: Performed By: #### 2 486352 #### [facility] [address] [place] [address] Calcium [Mass/Vol] 8.6 mg/dL Low 8.9-11.1 [facility] Comment on above: Performed By: #### 2 390377 #### [facility] [address] [place] [address] Chloride [Moles/Vol] 104 mmol/L Normal 101-111 [facility] Comment on above: Performed By: #### 2 297127 #### [facility] [address] [place] [address] CO2 [Moles/Vol] 25 mmol/L Normal 21-31 [facility] Comment on above: Performed By: #### 2 538230 #### [facility] [address] [place] [address] Creatinine [Mass/Vol] 0.4 mg/dL Low 0.5-1.3 [facility] Comment on above: Performed By: #### 2 920992 #### [facility] [address] [place] [address] Globulin (S) [Mass/Vol] 2.8 g/dL Normal 1.4-4.0 [facility] Comment on above: Performed By: #### 2 267478 #### [facility] [address] [place] [address] Glucose [Mass/Vol] 97 mg/dL Normal 55-199 [facility] Comment on above: Performed By: #### 2 077000 #### [facility] [address] [place] [address] Potassium [Moles/Vol] 3.4 mmol/L Low 3.5-5.3 [facility] Comment on above: Performed By: #### 2 434073 #### [facility] [address] [place] [address] Protein [Mass/Vol] 6.4 g/dL Normal 6.0-7.8 [facility] Comment on above: Performed By: #### 2 895833 #### [facility] [address] [place] [address] Sodium [Moles/Vol] 136 mmol/L Normal 135-145 [facility] Comment on above: Performed By: #### 2 909328 #### [facility] [address] [place] [address] Urea nitrogen [Mass/Vol] 8 mg/dL Normal 5-21 [facility] Comment on above: Performed By: #### 2 426411 #### [facility] [address] [place] [address] Urea nitrogen/Creatinin e [Mass ratio] 20 No Units Normal 10-20 [facility] Comment on above: Performed By: #### 2 288520 #### [facility] [address] [place] [address] TSHon 06-25-2024 TSH Qn 3.63 m[IU]/L Normal 0.34-5.60 [facility] Comment on above: Performed By: #### 2 988092 #### [facility] [address] [place] [address] eGFRon 06-25-2024 eGFR 142 mL/min/1.73 m2 Normal >=59 [facility] Comment on above: Order Comment: Order added by Discern Expert. Performed By: #### 1 [id number] #### [facility] [address] [place] [address] TSHon 05-31-2024 TSH Qn 1.99 m[IU]/L Normal 0.34-5.60 [facility] Comment on above: Performed By: #### 2 439147 #### [facility] [address] [place] [address] TSHon 05-01-2024 TSH Qn 1.54 m[IU]/L Normal 0.34-5.60 [facility] Comment on above: Performed By: #### 2 332231 #### [facility] [address] [place] [address] Consent for Treatmenton Consent for Treatment [id number] F Normal [facility] Physician Orderon 04-04-2024 Physician Order [id number] FF Normal [facility] TSHon 04-04-2024 TSH Qn 2.73 m[IU]/L Normal 0.34-5.60 [facility] Comment on above: Performed By: #### 2 789064 #### [facility] [address] [place] [address] XR Spine Cervical 4 or 5 Vie [...] mGy = . DAP = . Normal [facility] XR Spine Thoracic 3 Viewson [...] MORENO Technologist: JOANNE Technical Comments Radiation Dose: ian Murillo in mGy = . DAP = . Normal [facility] Physician Orderon 09-15-2023 Physician Order [id number] IFF Normal [facility] T4 Free SerPl-mCncon 023 Free T4 [Mass/Vol] 1.2 ng/dL Normal 0.9-1.7 [facility] Comment on above: Order Comment: Speci men Type: BLOOD SPECIMEN Ordering Facility: [facility] Address: [address] [place] [address] Performed By: #### 3 024-7, 3016-3 #### [facility] CLIA [id number] [address] STATES OF [facility] TSH SerPl-aCncon 08-18-2023 TSH Qn 2.280 m[IU]/L Normal 0.270-4.[address] [facility] Comment on above: Order Comment: Rozina florez Type: BLOOD SPECIMEN Ordering Facility: [facility] Address: [address] [place] [address] Result Comment: If t he patient is , TSH reference range varies by gestational period: First Trimester (weeks 9-12): 0.180-2.990 mIU/L Second Trimester: 0.110-3.980 mIU/L Third Trimester: 0.480-4.710 mIU/L Noe Ramon et al. A Practical Approach for the Verifications and Determination of Site- and Trimester-Specific Reference Intervals for Thyroid Function tests in . Thyroid, 2019:29:3:412-420. Gergor Banegas, et al. 2017 Guidelines of the [place] Thyroid Association for the Diagnosis and Management of Thyroid Disease during and the . Thyroid, 2017:27:3:315-389. Performed By: #### 3 024-7, 3016-3 #### [facility] CLIA [id number] [address] [place] [address] [place] Consent for Treatmenton Consent for Treatment [id number]: 127 Normal [facility] US Renalon 07-08-2023 US Renal [...] M.D. Transcribed by: MORENO Technologist: EMILY Normal [facility] XR Abdomen 1 Viewon 07-08-20 [...] mGy = . DAP = . Normal [facility] Ambulatory Visit Summaryon 0 06-21-2023 Ambulatory Visit Summary EMMY DALE :2000 Visit Date:06/21/2023 Ambulatory Visit Instructions Your Diagnosis Urinary crystals Recurrent UTI Urethral stricture Gross hematuria Tests Performed Urnls Dip Stick Auto w/o Microscopy POC 40008 Your Care Team Attending Physician - SOBEIDA [...] Comments: will call pt. Where: [address] [place] [address] You Need to Complete the Following US [...] No, Kidney stones, pp_set_radiology_subspec ialty, [place] Medications What How Much When Instructions Unchanged busPIRone (busPIRone 10 mg Tab) 2 times a day Contact prescribing physician if questions or concerns Unchanged levothyroxine (Synthroid 25 mcg(0.025 mg) Tab) Every day Contact prescribing physician if questions or concerns Test Results Urnls Dip Stick Auto w/o Microscopy POC 20864 (06/21/2023) Bilirubin Urine Dipstick - Negative Blood Urine Dipstick - Negative Glucose Urine Dipstick - Negative Ketones Urine Dipstick - Negative Leukocytes Urine Dipstick - Negative Nitrite Urine Dipstick - Negative Protein Urine Dipstick - Negative Specific Ages [place] Urine Dipstick - 1.010 Urine Appearance Urine [...] ? 8 oz (237 mL) of milk, tsgjhvx-segnuoeniggq-nvs ry milk, and calcium-fortifiedfruit juice. Calcium-fortified means [...] wheat cereals. (more content not included)... Normal [facility] Patient Educationon 06-21-20 Patient Education Nephrology Dietary [...] ? 8 oz (237 mL) of milk, xrvbyxx-akwzpwicjjfa-lvl ry milk, and calcium-fortifiedfruit juice. Calcium-fortified means [...] Spinach (cooked), rhubarb, beets, sweet potatoes, and Ukrainian chard. ? Peanuts. ? Potato chips, divehi fries, and baked potatoes with skin on. ? Nuts and nut products. ? Chocolate. ? If you regularly take a diuretic medicine, make sure to eat at least 1 or 2 servings of fruits or vegetables that are high in potassium each day. These include: ? Avocado. ? Banana. ? Harper, prune, carrot, or tomato juice. ? Baked [...] fish oil, or vitamin B6. ? Take hgmd-icq-zngpmfj and prescription medicines only as told by your health care provider. These include supplements. What foods should I limit? Limit your in (more content not included)... Normal [facility] Urology Office/Clinic Noteon 06-21-2023 Urology Office/Clinic [...] pass. Will send CORDELIA and KUB to [facility] to see if any persistent hydro/any remaining [...] Urnls Dip Stick Auto w/o Microscopy POC 74015 4. Gross hematuria (R31.0: Gross hematuria) CORDELIA [...] When Contact Information SOBEIDA THOMPSON PA-C, URL [address] [place] [address] Additional Instructions: will call pt. Patient Education Dietary Guidelines to Help Prevent Kidney Stones I, Laura Lou, personally scribed for Sobeida Thompson PA-C on 06/21/2023 12:25:11. . Documentation recorded by the scribmakenzie Lou accurately reflects the services(s) I performed [...] History Cystour (more content not included)... Normal [facility] Comment on above: Result Comment: Elec tronically Signed By: SOBEIDA THOMPSON PA-C\.br\Date and Time Signed: 06/21/23 12:44 EDT\.br\Electronically Co-Signed By: Laura Lou\.br\Date and Time Co-Signed: 06/21/23 12:25 EDT PAP [id number] 06-07-2023 Cytology report Cyto stain Doc (Cvx/Vag) Note Invalid Interpretation Code [facility] Comment on above: Result Comment: TEST S RESULT FLAG UNITS REF RANGE LAB Clinician Provided Cytology Information Source.............Endocervix No. of containers..01 ThinPrep Vial DIAGNOSIS: 01 NEGATIVE FOR INTRAEPITHELIAL LESION OR MALIGNANCY. Specimen adequacy: 01 Satisfactory for evaluation. Endocervical and/or squamous metaplastic cells (endocervical component) are present. Performed by: Clif Bolaños Pipe Smoking Machine Operator (ASCP) . 01 Note: Note 01 The [...] Low,>-Panic High,A-Abnormal,AA-Critical Abnormal Performed at: [address] [address] Lisa Ellington MD, Performed at: [facility] [address] [id number] MD Chandana Gonzalez Performed By: #### 3 [id number] ####[facility] [address] [place] [address] Consent for Treatmenton Consent for Treatment [id number]#1.00CD: 127 Normal [facility] Heart and Vascular Office/Cl inic [...] but unfortunately she was called by the child support case officer and told that it was not working. [...] her Sy (more content not included)... Normal [facility] Comment on above: Result Comment: Elec tronically Signed By: SAMUEL VELAZQUEZ, Benjamin Lopez\.cee\Date and Time Signed: 06/01/23 14:25 EDT PAP [id number] 06-01-2023 Collection Technique BRUSH-SPATULA Normal [facility] Comment on above: Performed By: #### 3 [id number] ####[facility] [address] [place] [id number] Gynecological Body Site ENDOCERVIX Normal [facility] Comment on above: Performed By: #### 3 [id number] ####[facility] [address] [id number] Physician Orderon 06-01-2023 Physician Order [id number]#1.00CD :[address] [facility] Physician Order [id number]#1.00CD: [address] [facility] C Urineon 05-27-2023 Bacteria identified [...] Locations R1: This test was performed at: [facility], [address] [place] [address], [address] , , Normal [facility] Comment on above: Performed By: #### 2 [id number] ####[facility] [address] [place] [address] T4 Free SerPl-mCncon 023 Free T4 [Mass/Vol] 1.2 ng/dL Normal 0.9-1.7 [facility] Comment on above: Order Comment: Rozina florez Type: BLOOD SPECIMEN Ordering Facility: [facility] Address: [address] [place], [place] [address] Performed By: #### 3 024-7, 3016-3 #### [facility] CLIA [id number] [address] [address] [place] TSH SerPl-aCncon 05-26-2023 TSH Qn 2.260 m[IU]/L Normal 0.270-4.[address] [facility] Comment on above: Order Comment: Speci vikki Type: BLOOD SPECIMEN Ordering Facility: [facility] Address: [address] [place] [address] Result Comment: If t he patient is , TSH reference range varies by gestational period: First Trimester (weeks 9-12): 0.180-2.990 mIU/L Second Trimester: 0.110-3.980 mIU/L Third Trimester: 0.480-4.710 mIU/L Noe Ramon et al. A Practical Approach for the Verifications and Determination of Site- and Trimester-Specific Reference Intervals for Thyroid Function tests in . Thyroid, 2019:29:3:412-420. Gregor Banegas, et al. 2017 Guidelines of the English Thyroid Association for the Diagnosis and Management of Thyroid Disease during and the . Thyroid, 2017:27:3:315-389. Performed By: #### 3 024-7, 3016-3 #### [facility] CLIA [id number] [address] [place] [address] [place] Consent for Treatmenton 05-01 Consent for Treatment [id number]#1.00CD: 127 Normal [facility] Physician Orderon 05-25-2023 Physician Order [id number]#1.00CD:12 7 Normal [facility] Urinalysison 05-25-2023 Bacteria LM Ql (Urine sed) 2+ /HPF Abnormal Trace [facility] Comment on above: Performed By: #### 1 [id number] ####[facility] [address] [place] [address] Bilirubin Ql (U) Negative Normal Negative [facility] Comment on above: Performed By: #### 1 [id number] ####[facility] [address] [place] [address] Clarity (U) SL CLOUDY Abnormal Clear [facility] Comment on above: Performed By: #### 1 [id number] ####[facility] [address] [place] [address] Color (U) YELLOW Normal Yellow [facility] Comment on above: Performed By: #### 1 [id number] ####[facility] [address] [place] [address] Crystals LM Ql (Urine sed) Present Normal [facility] Comment on above: Performed By: #### 1 [id number] ####[facility] [address] [place] [address] Epithelial cells.squamous LM.HPF (Urine sed) [#/Area] 0-2 Normal 0-2 [facility] Comment on above: Performed By: #### 1 [id number] ####[facility] [address] [place] [address] Glucose Test strip (U) [Mass/Vol] Negative Normal Negative [facility] Comment on above: Performed By: #### 1 [id number] ####[facility] [address] [place] [address] Hemoglobin Ql (U) 2+ Abnormal Negative [facility] Comment on above: Performed By: #### 1 [id number] ####[address] [address] Ketones (U) [Mass/Vol] Negative Normal Negative [facility] Comment on above: Performed By: #### 1 [id number] ####[address] [address] [place].plasma/Lit hium.RBC (Bld) [Mass ratio] 0-3 Normal 0-3 [facility] Comment on above: Performed By: #### 1 [id number] ####[address] [address] Mucus Ql (Urine sed) TRACE Normal [facility] Comment on above: Performed By: #### 1 [id number] ####[facility] [address] [place] [address] Nitrite Ql (U) Positive Abnormal Negative [facility] Comment on above: Performed By: #### 1 [id number] ####[address] [address] pH (U) 6.0 [pH] Invalid Interpretation Code 5.0-9.0 [facility] Comment on above: Performed By: #### 1 [id number] ####[facility] [address] [place] [address] Protein (U) [Mass/Vol] Negative Normal Negative [facility] Comment on above: Performed By: #### 1 [id number] ####[facility] [address] [place] [address] Specific gravity (U) [Rel density] 1.010 Invalid Interpretation Code 1.005-1.030 [facility] Comment on above: Performed By: #### 1 [id number] ####[facility] [address] [place] [address] Type of Urine collection method Clean Catch Normal [facility] Comment on above: Performed By: #### 1 [id number] ####[facility] [address] [place] [address] Urobilinogen Qn (U) 0.2 {Catarino'U}/dL Normal 0.0-1.0 [facility] Comment on above: Performed By: #### 1 [id number] ####[facility] [address] [place] [address] WBC Auto Ql (U) 1+ Abnormal Negative [facility] Comment on above: Performed By: #### 1 [id number] ####[facility] [address] [place] [address] WBC LM.HPF (Urine sed) [#/Area] 26-30 Abnormal 0-5 [facility] Comment on above: Performed By: #### 1 [id number] ####[facility] [address] [place], [place] [address] Consent for Treatmenton 04-30 Consent for Treatment [id number]#1.00CD: 127 Normal [facility] Consent for Treatmenton Consent for Treatment [id number]: 127 Normal [facility] Heart and Vascular Office/Cl in Noteon 05-05-2023 Heart and Vascular Office/Clinic Note [...] 1 month. (more content not included)... Normal [facility] Comment on above: Result Comment: Elec tronically Signed By: Samuel VELAZQUEZ, Benjamin Le.br\Date and Time Signed: 05/05/23 16:11 EDT Physician Orderon 05-05-2023 Physician Order [id number]#1.00CD :127 Normal [facility] Stress EKG Tracingson 2022 Stress EKG Tracings [id number]#1.00CD: 127 Normal [facility] Consent for Treatmenton 03-31 Consent for Treatment [id number]#1.00CD: 127 Normal [facility] T3Free SerPl-mCncon 04-06-20 23 Free T3 [Mass/Vol] 3.3 pg/mL Normal 2.3-4.1 [facility] Comment on above: Order Comment: Speci men Type: BLOOD SPECIMEN Ordering Facility: [facility] Address: [address] [place] [address] Performed By: #### 3 051-0, 3024-7, 3016-3 #### [facility] CLIA [id number] [address] [place] [address] [place] T4 Free SerPl-mCncon 023 Free T4 [Mass/Vol] 1.4 ng/dL Normal 0.9-1.7 [facility] Comment on above: Order Comment: Speci men Type: BLOOD SPECIMEN Ordering Facility: [facility] Address: [address] [address] Performed By: #### 3 051-0, 3024-7, 3016-3 #### [facility] CLIA [id number] [address] [place] [address] [place] THYROGLOBULIN ABon 3 Thyroglobulin Ab Qn 1.8 [IU]/mL Normal <4.[address] [facility] Comment on above: Order Comment: Rozina florez Type: BLOOD SPECIMEN Ordering Facility: [facility] Address: [address] [place] [address] Result Comment: The Thyroglobulin Antibody test was performed using the Cumulocity Unicel DXI paramagnetic particle chemiluminescent immunoassay method. Results obtained with different assay methods or kits cannot be used interchangeably. Performed By: #### T JASON #### [facility] CLIA [id number] [address] [place] [address] OF S[place] THYROID PEROXIDASE ANTIBODY BLOODon 04-06-2023 [place] Qn 4572.0 [IU]/mL High <5.[address] [facility] Comment on above: Order Comment: Rozina florez Type: BLOOD SPECIMEN Ordering Facility: [facility] Address: [address] [place] [address] Result Comment: Thyr oid Peroxidase Antibody test is used as an aid in diagnosis of autoimmune thyroid disease. Clinical correlation is required. Performed By: #### M ICRO #### [facility] CLIA [id number] [address] [place] [address] [place] TSH SerPl-aCncon 04-06-2023 TSH Qn 6.050 m[IU]/L High 0.270-4.[address] [facility] Comment on above: Order Comment: Rozina florez Type: BLOOD SPECIMENOrdering Facility: [facility] Address: [address] [place] [address] Result Comment: If t he patient is , TSH reference range varies by gestational period: First Trimester (weeks 9-12): 0.180-2.990 mIU/L Second Trimester: 0.110-3.980 mIU/L Third Trimester: 0.480-4.710 mIU/L Noe Ramon et al. A Practical Approach for the Verifications and Determination of Site- and Trimester-Specific Reference Intervals for Thyroid Function tests in . Thyroid, 2019:29:3:412-420. Gregor E, et al. 2017 Guidelines of the English Thyroid Association for the Diagnosis and Management of Thyroid Disease during and the . Thyroid, 2017:27:3:315-389. Performed By: #### 3 051-0, 3024-7, 3016-3 ####[facility] MICHAEL [id number] [place] [id number] [place] CNOVon 03-08-2023 CNOV Office Visit (ENDOLN ) -------- EMMY DALE ([id number]) 1 F Date Time Provider Department 03/08/23 [...] Arthritis Father in blood . was at [facility] when baby thought to be related to [...] involuntary motions. (more content not included)... Normal [facility] Vital Signs Date Time Vital Sign Value Performing Clinician Facility 07-31-2024 08:55-0400 Body weight 99.34 kg [employer] Phone: [facility] 07-31-2024 08:55-0400 Diastolic blood pressure 68 mm[Hg] [employer] Phone: [facility] 07-31-2024 08:55-0400 Systolic blood pressure 112 mm[Hg] [employer] Work Phone: [facility] 09-15-2023 13:30-0500 Body height 162.56 cm [employer] Other [employer] [facility] [employer] Other 09-15-2023 13:30-0500 Body mass index (BMI) [Ratio] 30.21 kg/m2 [employer] Other [facility] Other 09-15-2023 13:30-0500 Body weight 79.83 kg [employer] Other [facility] Other 09-15-2023 13:30-0500 Diastolic blood pressure 68 mm[Hg] Lyndon Easterwood Other [facility] [employer] Other 09-15-2023 13:30-0500 Respiratory rate 18 /min Lyndon Easterwood Other [employer] [facility] [employer] Other 09-15-2023 13:30-0500 SaO2% (BldA) [Mass fraction] 99 % Lyndon Easterwood Other [facility] [employer] Other 09-15-2023 13:30-0500 Systolic blood pressure 118 mm[Hg] Lyndon Easterwood Other [facility] Other 07-12-2023 09:15-0400 Body height 162.56 cm Lyndon [employer] Other [facility] Other 07-12-2023 09:15-0400 Body mass index (BMI) [Ratio] 29.86 kg/m2 Lyndon Easterwood Other [facility] [employer] Other 07-12-2023 09:15-0400 Body temperature 98.6 [degF] Lyndon Easterwood Other [employer] [facility] [employer] Other 07-12-2023 09:15-0400 Body weight 78.93 kg Lyndon Easterwood Other [facility] Other 07-12-2023 09:15-0400 Diastolic blood pressure 70 mm[Hg] Lyndon Easterwood Other [facility] Other 07-12-2023 09:15-0400 Respiratory rate 20 /min Lyndon Easterwood Other [facility] [employer] Other 07-12-2023 09:15-0400 SaO2% (BldA) [Mass fraction] 98 % Lyndon Easterwood Other [facility] [employer] Other 07-12-2023 09:15-0400 Systolic blood pressure 112 mm[Hg] Lyndon Easterwood Other [facility] [employer] Other 05-25-2023 17:30-0400 Body height 162.56 cm Lyndon Easterwood Other [facility] [employer] Other 05-25-2023 17:30-0400 Body mass index (BMI) [Ratio] 30.04 kg/m2 Lyndon Easterwood Other [employer] Other 05-25-2023 17:30-0400 Body temperature 98.2 [degF] Lyndon Easterwood Other [employer] Other 05-25-2023 17:30-0400 Body weight 79.38 kg Lyndon Easterwood Other [facility] [employer] Other 05-25-2023 17:30-0400 Diastolic blood pressure 72 mm[Hg] Lyndon Easterwood Other [facility] [employer] Other 05-25-2023 17:30-0400 Respiratory rate 20 /min Lyndon Easterwood Other [facility] Other 05-25-2023 17:30-0400 SaO2% (BldA) [Mass fraction] 99 % Lyndon Easterwood Other [facility] [employer] Other 05-25-2023 17:30-0400 Systolic blood pressure 110 mm[Hg] Lyndon Easterwood Other [employer] [facility] [employer] Other 03-08-2023 16:13-0400 Body weight 83.92 kg Martina Rodriguez MD, PhD Work Phone: [facility] 03-08-2023 16:13-0400 Diastolic blood pressure 76 mm[Hg] Martina Rodriguez MD, PhD Work Phone: [facility] 03-08-2023 16:13-0400 Systolic blood pressure 116 mm[Hg] Martina Rodriguez MD, PhD Work Phone: [facility] 08-05-2022 16:00-0400 Body height 162.56 cm Lyndon Easterwood Other [employer] Other 08-05-2022 16:00-0400 Body mass index (BMI) [Ratio] 32.78 kg/m2 Lyndon Easterwood Other [facility] [employer] Other 08-05-2022 16:00-0400 Body temperature 98 [degF] Lyndon Easterwood Other [facility] [employer] Other 08-05-2022 16:00-0400 Body weight 86.64 kg Lyndon Easterwood Other [facility] [employer] Other 08-05-2022 16:00-0400 Diastolic blood pressure 76 mm[Hg] Lyndon Easterwood Other [facility] Other 08-05-2022 16:00-0400 Respiratory rate 20 /min Lyndon Easterwood Other [facility] Other 08-05-2022 16:00-0400 SaO2% (BldA) [Mass fraction] 99 % Lyndon Easterwood Other [facility] Other 08-05-2022 16:00-0400 Systolic blood pressure 122 mm[Hg] Lyndon Dalal Other [employer] [facility] [employer] Other Encounters Encounter Date Encounter Type Care Provider Facility Start: 07-31-2024 End: 07-31-2024 Bamboo flowsheet Dami Ajith DO Work Phone: [facility] Start: 07-31-2024 End: 07-31-2024 Bamboo flowsheet Dami Ajith DO Work Phone: [facility] Start: 07-31-2024 End: 07-31-2024 flow sheet Dami Ajith DO Work Phone: [facility] Comment on above: 31 weeks gestation o f ; Third trimester Start: 07-31-2024 End: 07-31-2024 ambulatory DAMI AJITH Not Available Start: 07-23-2024 End: 07-23-2024 ambulatory Dami R AJITH Facility:[facility] Start: 07-19-2024 End: 07-19-2024 ambulatory LELE ALEJO Not Available Start: 07-05-2024 End: 07-05-2024 ambulatory DAMI AJITH Not Available Start: 06-25-2024 End: 06-25-2024 ambulatory DAMI AJITH Not Available Start: 06-25-2024 End: 06-25-2024 ambulatory LELE ALEJO Facility:[facility] Start: 06-12-2024 End: 06-12-2024 ambulatory DAMI R AJITH [facility] Start: 06-04-2024 End: 06-04-2024 ambulatory LELE ALEJO Not Available Start: 05-14-2024 End: 05-14-2024 ambulatory DAMI R AJITH [facility] Start: 05-08-2024 End: 05-08-2024 ambulatory DAMI AJITH Not Available Start: 04-09-2024 End: 04-09-2024 ambulatory DAMI AJITH Not Available Start: 04-04-2024 ambulatory Dami R AJITH Facility: [facility] Start: 03-12-2024 End: 03-12-2024 ambulatory DAMI AJITH Not Available Start: 02-24-2024 End: 02-24-2024 ambulatory DAMI AJITH Not Available Start: 12-04-2023 End: 12-04-2023 ambulatory Lyndon Joseerwood Other [facility] [employer] Other Start: 12-04-2023 Encounter by [employer] Lyndon Garciaerwood [facility] Start: 11-05-2023 End: 11-05-2023 ambulatory Lyndon Joseerwood Other [facility] Other Start: 11-05-2023 Encounter by [employer] Lyndon Garciaerwood [facility] Start: 10-25-2023 End: 10-25-2023 ambulatory Lyndon John Fallwood Facility:[facility] Start: 10-10-2023 End: 10-10-2023 ambulatory Lyndon Joseerwood Other [employer] [facility] [employer] Other Start: 10-10-2023 Telephone encounter Lyndonjessica Garciaerwood [facility] Start: 09-26-2023 End: 09-26-2023 ambulatory Lyndon Joseerwood Other [employer] Other Start: 09-26-2023 Telephone encounter Lyndon Joseerwood [facility] Start: 09-18-2023 End: 09-18-2023 ambulatory Lyndon Joseerwood Other [employer] Other Start: 09-18-2023 Telephone encounter Lyndon Joseerwood [facility] Start: 09-15-2023 End: 09-15-2023 ambulatory LYNDON JOSEERWOOD [facility] [employer] Other Start: 09-15-2023 Office outpatient visit 25 minutes Lyndon Joseerwood [facility] Start: 08-18-2023 End: 08-18-2023 ambulatory LYNDON JOSEWOOD Facility:[facility] Start: 08-05-2023 Get Medical Advice Martina Rodriguez MD, PhD Work Phone: Endocrinology Comment on above: lab orders Start: 07-22-2023 End: 07-22-2023 ambulatory Lyndon Eufemiawood Other [employer] [facility] [employer] Other Start: 07-22-2023 Telephone encounter Lyndonjessica Garciawood [employer] Start: 07-12-2023 End: 07-12-2023 ambulatory Lyndon Josewood Other [facility] [employer] Other Start: 07-12-2023 Office outpatient visit 25 minutes Lyndon Joseerwood [facility] Start: 07-12-2023 Telephone encounter Lyndon Joseerwood [facility] Start: 07-08-2023 End: 07-08-2023 ambulatory SOBEIDA THOMPSON Facility:[facility] Start: 06-27-2023 End: 06-27-2023 ambulatory Lyndon Josewood Other [employer] Other Start: 06-27-2023 Telephone encounter Lyndon Joseerwood [facility] Start: 06-21-2023 End: 06-21-2023 ambulatory SOBEIDA THOMPSON Facility:[facility] Start: 06-01-2023 End: 06-01-2023 ambulatory Benjamin BAKER Facility:[facility] Start: 06-01-2023 End: 06-01-2023 ambulatory Bill Kat Facility:[facility] Start: 05-26-2023 End: 05-26-2023 ambulatory LYNDON EUFEMIAWOOD Facility:[facility] Start: 05-25-2023 End: 05-25-2023 ambulatory LYNDON JOSEWOOD [employer] Other Start: 05-25-2023 Office outpatient visit 15 minutes Lyndon Easterwood [facility] Start: 05-17-2023 End: 05-17-2023 ambulatory Benjamin John SAMUEL Facility:[facility] Start: 05-05-2023 End: 05-05-2023 ambulatory Benjamin BAKER Facility:[facility] Start: 04-15-2023 End: 04-15-2023 ambulatory Benjamin BAKER Facility:[facility] Start: 04-06-2023 End: 04-06-2023 ambulatory MARTINA RODRIGUEZ Facility:[facility] Start: 03-08-2023 End: 03-08-2023 ambulatory MARTINA RODRIGUEZ Facility:[facility] Start: 03-08-2023 End: 03-08-2023 Patient encounter procedure Martina Rodriguez MD, PhD Work Phone: Endocrinology Comment on above: Vikki's thyroidi tis (Primary Dx) Start: 02-28-2023 End: 02-28-2023 ambulatory Lyndon Joseerwood Other [employer] Other Start: 02-28-2023 Telephone encounter Lyndon Fallwood [facility] Start: 02-21-2023 End: 02-21-2023 ambulatory LOG SNAKER Lyndon John Garciaerrick Work Phone: [facility] Work Phone: Start: 02-21-2023 End: 02-21-2023 Discharged Recurring LOG SNAKER Lyndon Joseerwood Work Phone: [facility] Work Phone: Start: 08-09-2022 End: 08-09-2022 ambulatory Lyndon Joseerwood Other [employer] Other Start: 08-09-2022 Telephone encounter Lyndon Joseerwood [facility] Start: 08-05-2022 End: 08-06-2022 Emergency department patient visit Lyndon Lopez Eufemiawood Facility:[facility] Start: 08-05-2022 End: 08-05-2022 ambulatory Lyndon Joseerwood Other [employer] Other Start: 08-05-2022 [facility] Date Procedure Procedure Detail Performing Clinician Start: 07-31-2024 Urnls dip stick/tabl et rgnt non-auto w/o micrscp Dami Canseco DO Work Phone: Plan of Treatment Date Care Activity Detail Author Start: 09-17-2024 End: 09-17-2024 Patient encounter procedure 09/17/2024 8:40 AM EST Routine [facility] [address] [place] [address] Dami Canseco, DO [address], [place] [id number] [facility] Start: 09-10-2024 End: 09-10-2024 Patient encounter procedure 09/10/2024 8:40 AM EST Routine [facility] [address] [place] [id number] Dami Canseco, DO [address] [place] [address] [facility] Start: 09-03-2024 End: 09-03-2024 Patient encounter procedure 09/03/2024 8:40 AM EST Routine [facility] [address] [place] [phone] Dami Canseco, DO [address] [place] [address] [facility] Start: 08-27-2024 End: 08-27-2024 Patient encounter procedure 08/27/2024 8:40 AM EDT Routine [facility] [address] [place] [phone] Dami Canseco, DO [address] [place] [address] [facility] Start: 08-14-2024 End: 08-14-2024 Patient encounter procedure 08/14/2024 8:40 AM EDT Routine [facility] [address] [facility] [place] [phone] Dami Canseco, DO [address] [place] [address] [facility] Start: 08-06-2024 End: 08-06-2024 Professional / ancillary services management 08/06/2024 8:00 AM EDT Ancillary Procedure [facility] [address] [facility] [place] [id number] [facility] Start: 07-31-2024 End: 07-31-2024 Patient encounter procedure 07/31/2024 8:50 AM EDT Routine [facility] [address] [place] [id number] Dami Canseco, DO [address] [place] [address] Arrived [facility] Comment on above: Arrived Start: 07-01-2024 Influenza vaccination Influenza Vacc ine (#1) [facility] Start: 08-08-2023 End: 10-08-2023 Thyrotropin [Units/volume] in Serum or Plasma TSH BLD Lab Routine Vikki's thyroiditis Expected: 08/08/2023, Expires: 10/08/2023 [facility] Work Phone: Comment on above: Expected: 08/08/2023 , Expires: 10/08/2023 Start: 08-08-2023 End: 10-08-2023 Thyroxine (T4) free [Mass/volume] in Serum or Plasma T4 FREE/FREE THYROX Lab Routine Vikki's thyroiditis Expected: 08/08/2023, Expires: 10/08/2023 [facility] Work Phone: Comment on above: Expected: 08/08/2023 , Expires: 10/08/2023 Start: 07-07-2023 Urine microalbumin profile [facility] Start: 07-01-2023 Covid-19 Vaccine () Covid-19 Vaccine () [facility] Start: 07-01-2023 Influenza vaccination Influenza Vacc ine (#1) [facility] Start: 03-31-2023 End: 05-31-2023 Thyroglobulin Ab [Units/volume] in Serum or Plasma THYROGLOBULIN AB Lab Routine Vikki's thyroiditis Expected: 03/31/2023, Expires: 05/31/2023 [facility] Work Phone: Comment on above: Expected: 03/31/2023 , Expires: 05/31/2023 Start: 03-31-2023 End: 05-31-2023 THYROID PEROXIDASE ANTIBODY BLOOD THYROID PEROXIDASE ANTIBODY BLOOD Lab Routine Vikki's thyroiditis Expected: 03/31/2023, Expires: 05/31/2023 [facility] Work Phone: Comment on above: Expected: 03/31/2023 , Expires: 05/31/2023 Start: 03-31-2023 End: 05-31-2023 Thyrotropin [Units/volume] in Serum or Plasma TSH BLD Lab Routine Vikki's thyroiditis Expected: 03/31/2023, Expires: 05/31/2023 [facility] Work Phone: Comment on above: Expected: 03/31/2023 , Expires: 05/31/2023 Start: 03-31-2023 End: 05-31-2023 Thyroxine (T4) free [Mass/volume] in Serum or Plasma T4 FREE/FREE THYROX Lab Routine Vikki's thyroiditis Expected: 03/31/2023, Expires: 05/31/2023 [facility] Work Phone: Comment on above: Expected: 03/31/2023 , Expires: 05/31/2023 Start: 03-31-2023 End: 05-31-2023 Triiodothyronine (T3) Free [Mass/volume] in Serum or Plasma T3 FREE BLD Lab Routine Vikki's thyroiditis Expected: 03/31/2023, Expires: 05/31/2023 [facility] Work Phone: Comment on above: Expected: 03/31/2023 , Expires: 05/31/2023 Start: 10-31-2022 DEPRESSION ASSESSMENT DEPRESSION ASS ESSMENT [facility] Start: 2021 PAP TESTING PAP TESTING [facility] Start: 02-02-2021 COVID-19 VACCINE (3 - Booster for Pfizer series) COVID-19 VACCINE (3 - Booster for Pfizer series) [facility] Start: 2018 CHLAMYDIA SCREENING (18-24) CHLAMYDIA SCREENING (18-24) [facility] Start: 2018 GC (GONORRHEA) SCREE MICHELLE (18-24) GC (GONORRHEA) SCREENING (18-24) [facility] Start: 2018 HEPATITIS C SCREENING HEPATITIS C SC REENING [facility] Start: 2018 HIV SCREENING HIV SCREENING [facility] Start: 2016 Meningococcal B Vacc ine: Consider Based On Risk (2 of 2 - Risk Bexsero 2-dose series) Meningococcal B Vaccine: Consider Based On Risk (2 of 2 - Risk Bexsero 2-dose series) [facility] Start: 2016 MENINGOCOCCAL B: 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 Immunizations Immunization Date Immunization Notes Care Provider Milady lewis 07-19-2022 influenza, injectabl e, quadrivalent, contains preservative Lyndon Dalal Other [facility] Other 07-19-2022 influenza virus vaccine, unspecified formulation Martina Rodriguez MD, PhD Work Phone: [facility] 12-08-2020 Do not use COVID-19 Pfizer 2 dose Lyndon Easterwood Other [facility] Other 11-17-2020 Do not use COVID-19 Pfizer 2 dose Lyndon Easterwood Other [facility] Other 07-31-2020 influenza, injectabl e, quadrivalent, contains preservative Lyndon Easterwood Other [facility] Other 10-18-2016 influenza, injectabl e, quadrivalent, contains preservative Martina Rodriguez MD, PhD Work Phone: [facility] 08-04-2015 influenza, injectabl e, quadrivalent, contains preservative Martina Rodriguez MD, PhD Work Phone: [facility] 04-23-2014 human papilloma viru s vaccine, quadrivalent Martina Rodriguez MD, PhD Work Phone: [facility] 09-29-2013 human papilloma viru s vaccine, quadrivalent Martina Rodriguez MD, PhD Work Phone: [facility] 07-07-2013 human papilloma viru s vaccine, quadrivalent Martina Rodriguez MD, PhD Work Phone: [facility] 07-07-2013 meningococcal polysaccharide (groups A, C, Y and W-135) diphtheria toxoid conjugate vaccine (MCV4P) Martina Rodriguez MD, PhD Work Phone: [facility] Work Phone: 07-07-2013 tetanus toxoid, redu ollie diphtheria toxoid, and acellular pertussis vaccine, adsorbed Martina Rodriguez MD, PhD Work Phone: [facility] 08-04-2009 influenza virus vaccine, unspecified formulation Martina Rodriguez MD, PhD Work Phone: [facility] 07-05-2008 hepatitis A vaccine, unspecified formulation Martina Rodriguez MD, PhD Work Phone: [facility] 09-09-2007 influenza virus vaccine, unspecified formulation Martina Rodriguez MD, PhD Work Phone: [facility] Work Phone: 06-19-2007 hepatitis A vaccine, unspecified formulation Martina Rodriguez MD, PhD Work Phone: [facility] 06-19-2007 varicella virus vaccine Parth Rodriguez MD, PhD Work Phone: [facility] 09-14-2006 influenza virus vaccine, unspecified formulation Martina Rodriguez MD, PhD Work Phone: [facility] 05-13-2006 diphtheria, tetanus toxoids and acellular pertussis vaccine Martina Rodriguez MD, PhD Work Phone: [facility] Work Phone: 05-13-2006 measles, mumps and rubella virus vaccine Martina Rodriguez MD, PhD Work Phone: [facility] Work Phone: 05-13-2006 poliovirus vaccine, inactivated Martina Rodriguez MD, PhD Work Phone: [facility] Work Phone: 05-13-2006 varicella virus vaccine Parth Rodriguez MD, PhD Work Phone: [facility] Work Phone: 07-26-2005 influenza virus vaccine, unspecified formulation Martina Rodriguez MD, PhD Work Phone: [facility] Work Phone: 07-30-2004 influenza virus vaccine, unspecified formulation Martina Rodriguez MD, PhD Work Phone: [facility] Work Phone: 06-30-2002 diphtheria, tetanus toxoids and acellular pertussis vaccine Martina Rodriguez MD, PhD Work Phone: [facility] Work Phone: 06-30-2002 poliovirus vaccine, inactivated Martina Rodriguez MD, PhD Work Phone: [facility] Work Phone: 04-04-2002 haemophilus influenz ae type b vaccine, HbOC conjugate Martina Rodriguez MD, PhD Work Phone: [facility] Work Phone: 04-04-2002 measles, mumps and rubella virus vaccine Martina Rodriguez MD, PhD Work Phone: [facility] Work Phone: 12-16-2001 hepatitis B vaccine, pediatric or pediatric/adolescent dosage Martina Rodriguez MD, PhD Work Phone: [facility] Work Phone: 12-16-2001 pneumococcal conjuga te vaccine, Shaq Rodriguez MD, PhD Work Phone: [facility] Work Phone: 09-30-2001 pneumococcal conjuga te vaccine, Shaq Rodriguez MD, PhD Work Phone: [facility] Work Phone: 06-24-2001 diphtheria, tetanus toxoids and acellular pertussis vaccine Martina Rodriguez MD, PhD Work Phone: [facility] Work Phone: 06-24-2001 haemophilus influenz ae type b vaccine, HbOC conjugate Martina Rodriguez MD, PhD Work Phone: [facility] Work Phone: 06-24-2001 pneumococcal conjuga te vaccine, Shaq valdenny Rodriguez MD, PhD Work Phone: [facility] Work Phone: 04-12-2001 diphtheria, tetanus toxoids and acellular pertussis vaccine Martina Rodriguez MD, PhD Work Phone: [facility] Work Phone: 04-12-2001 haemophilus influenz ae type b vaccine, HbOC conjugate Martina Rodriguez MD, PhD Work Phone: [facility] Work Phone: 04-12-2001 poliovirus vaccine, inactivated Martina Rodriguez MD, PhD Work Phone: [facility] Work Phone: 02-03-2001 diphtheria, tetanus toxoids and acellular pertussis vaccine Martina Rodriguez MD, PhD Work Phone: [facility] Work Phone: 02-03-2001 haemophilus influenz ae type b vaccine, HbOC conjugate Martina Rodriguez MD, PhD Work Phone: [facility] Work Phone: 02-03-2001 poliovirus vaccine, inactivated Martina Rodriguez MD, PhD Work Phone: [facility] Work Phone: 2000 hepatitis B vaccine, pediatric or pediatric/adolescent dosage Martina Rodriguez MD, PhD Work Phone: [facility] Work Phone: 2000 hepatitis B vaccine, pediatric or pediatric/adolescent dosage Martina Rodriguez MD, PhD Work Phone: [facility] Work Phone: Payers Date Payer Category Payer Private Health Insurance [id number] 2024 Unknown [id number] 2023 Unknown [id number] 2022 Private Health Insurance [id number] 2022 Self-pay 2020 Private Health Insurance [id number] 2020 Private Health Insurance [id number] 2000 Unknown [id number] 2.16.840.1.445449.3.579.2.727 2000 Unknown [id number] 2.16.840.1.706712.3.579.2.727 2000 Unknown [id number] 2.16.840.1.438749.3.579.2.727 2000 Unknown [id number] 2.16.840.1.985136.3.579.2.727 2000 Unknown [id number] 2.16.840.1.158804.3.579.2.727 2000 Unknown [id number] 2.16.840.1.295460.3.579.2.727 2000 Unknown [id number] 2.16.840.1.349087.3.579.2.727 2000 Unknown [id number] 2.16.840.1.804912.3.579.2.727 2000 Unknown [id number] 2.16.840.1.825078.3.579.2.727 2000 Unknown [id number] 2.16.840.1.995067.3.579.2.727 2000 Unknown [id number] 2.16.840.1.457293.3.579.2.727 2000 Unknown [id number] 2.16.840.1.103267.3.579.2.1286 2000 Unknown [id number] 2.16.840.1.018089.3.579.2.1286 2000 Unknown [id number] 2.16.840.1.751889.3.579.2.1286 2000 Unknown [id number] 2.16.840.1.862211.3.579.2.727 2000 Unknown [id number] 2.16.840.1.387537.3.579.2.727 2000 Unknown [id number] 2.16.840.1.576498.3.579.2.1259 2000 Unknown [id number] 2.16.840.1.770191.3.579.2.1259 2000 Unknown [id number] 2.16.840.1.784326.3.579.2.1259 2000 Unknown [id number] 2.16.840.1.942733.3.579.2.1259 2000 Unknown [id number] 2.16.840.1.465169.3.579.2.1259 2000 Unknown [id number] 2.16.840.1.371988.3.579.2.1259 2000 Unknown [id number] 2.16.840.1.383769.3.579.2.1259 2000 Unknown [id number] 2.16.840.1.574697.3.579.2.1259 2000 Unknown [id number] 2.16.840.1.179027.3.579.2.1259 Private Health Insurance [facility] [id number] Unknown [id number] 2.16.840.1.254029.3.579.2.531 Unknown [facility] Employees [id number] Unknown [id number] 2.16.840.1.915337.3.579.2.531 Social History Date Type Detail Facility Start: 03-08-2023 End: 07-05-2024 Sex Assigned At [facility] [employer] Other Start: 09-27-2014 End: 07-05-2024 Tobacco smoking status NHIS Never smoked tobacco [facility] History of tobacco use Passive smoker [facility] Start: 03-08-2023 Alcohol intake Not Asked [facility] Start: 2000 Sex Assigned At Not on file C [facility] Start: 2000 Sex Assigned At Female F [facility] Start: 03-08-2023 End: 07-05-2024 History of Social function [facility] Start: 07-05-2024 Tobacco use and exposure Smokeless tobacco non-user [facility] Start: 07-19-2024 End: 07-31-2024 Alcoholic beverage intake Ex-drinker (finding) [facility] Start: 01-06-2024 [facility] Clinical Notes 09-09-2009 to 07-31-2024 NIDIA Multani - 07/31/2024 8:50 AM EDT Note Date & Type Note Facility 07-31-2024 History of Presen t illness Narrative Reason for Appointment: Patient ID: Emmy Dale is a 23 y.o. female who presents for Routine Visit Patient presents today for Return OB appointment. MEDICATIONS Current Outpatient Medications Medication Instructions aspirin 81 mg, Oral, Daily RT docusate sodium (COLACE) 100 mg, Oral, Daily fiber 625 mg, Oral, Daily levothyroxine (SYNTHROID) 100 mcg, Oral, Daily before breakfast magnesium oxide (MAG-OX) 400 mg, Oral, Daily ondansetron ODT (ZOFRAN-ODT) 4 mg, Oral, Every 6 hours PRN Iqjukfti-Oyi-Ik-FA ( 1 + IRON PO) ALLERGIES Allergies Allergen Reactions Sulfa Antibiotics Hives and Rash Other Reaction(s): Unknown Other Reaction(s): Rash PROBLEMS Active Ambulatory Problems Diagnosis Date Noted JEFF (amniotic fluid index) borderline low 07/05/2024 27 weeks gestation of 07/05/2024 Resolved Ambulatory Problems Diagnosis Date Noted No Resolved Ambulatory Problems Past Medical History: Diagnosis Date Asthma (CMS/HCC) As a child Vikki's disease (CMS/HCC) Hypertension (CMS/HCC) Gestational Hypothyroidism (CMS/HCC) 12/2020 Urinary tract infection As a teen HISTORY PAST MEDICAL HISTORY SOCIAL HISTORY Past Medical History: Diagnosis Date Asthma (CMS/HCC) As a child Vikki's disease (CMS/HCC) Hypertension (CMS/HCC) Gestational Hypothyroidism (CMS/HCC) 12/2020 Urinary tract infection As a teen Social History Tobacco Use Smoking status: Never Smokeless tobacco: Never Substance Use Topics Alcohol use: Not Currently Drug use: Never FAMILY HISTORY Family History Problem Relation Name Age of Onset Hyperlipidemia Mother Scarlet Rashes / Skin problems Mother Scarlet Rheum arthritis Father Rick Heart failure Father Rick Hyperlipidemia Father Rick Hypertension Father Rick Diabetes Maternal Grandfather Ray Heart failure Maternal Grandfather Ray Hypertension Maternal Grandfather Ray Rashes / Skin problems Maternal Grandfather Ray Cancer Maternal Grandmother Ila Stroke Maternal Grandmother Ila Thyroid disease Maternal Grandmother Ila Diabetes Paternal Grandmother Lilly Hypertension Paternal Grandmother Lilly Rheum arthritis Father's Sister Trisha Osteoarthritis Mother's Sister Jocelyne Asthma Mother's Sister Jocelyne Thyroid disease Mother's Sister Jocelyne Asthma Mother's Brother Humberto Diabetes Mother's Brother Humberto Thyroid disease Sister Terri Thyroid disease Sister Vangie SURGICAL HISTORY History reviewed. No pertinent surgical history. REVIEW OF SYSTEMS Review of Systems: Review of Systems Constitutional: Negative. HENT: Negative. Eyes: Negative. Respiratory: Negative. Cardiovascular: Negative. Gastrointestinal: Negative. Genitourinary: Negative. Musculoskeletal: Negative. Skin: Negative. Neurological: Negative. All other systems reviewed and are negative. Hematological: Negative. Endocrine: Negative. Allergic/Immunologic: Negative. OBJECTIVE Objective: Physical Exam Constitutional: Appearance: Normal appearance. She is normal weight. HENT: Head: Normocephalic. Cardiovascular: Rate and Rhythm: Normal rate. Pulses: Normal pulses. Pulmonary: Effort: Pulmonary effort is normal. Breath sounds: Normal breath sounds. Abdominal: Palpations: Abdomen is soft. Musculoskeletal: General: Normal range of motion. Neurological: General: No focal deficit present. Mental Status: She is alert and oriented to person, place, and time. Psychiatric: Mood and Affect: Mood normal. Behavior: Behavior normal. Thought Content: Thought content normal. Judgment: Judgment normal. Vitals and nursing note reviewed. Vitals: There is no height or weight on file to calculate BMI. BP: 112/68 Patient's last menstrual period was 12/23/2023. ASSESSMENT & PLAN ICD-10-CM 1. 31 weeks gestation of Z3A.31 POCT urinalysis dipstick manually resulted 2. Third trimester Z34.93 POCT urinalysis dipstick manually resulted Return OB: Patient presents today for a routine obstetrics appointment. Patient is currently 31w4d . Patient states she is doing well but has complaints of being tired due to current . Patient has verbalizes frequent movement. labor precautions was discussed/given and patient was instructed to perform kick counts three times a day. Orders Placed This Encounter Procedures POCT urinalysis dipstick manually resulted Follow Up: Patient is to return to office in 2 week for routine OB appointment. Documented by NIDIA Multani on behalf of: Dami Canseco DO documented in this encounter [facility] 09-15-2023 Evaluation note Encounter Date Diagnosis Assessment [...] today for physical therapy to [facility]. Discussed continuation of jylb-nvx-gzwgfdp medications as needed. Take muscle relaxer as [...] physical therapy to [facility] through [facility]. Discussed continuation of afub-pjd-qqmbmuu medications as needed. Take muscle relaxer as [...] that were not corrected during review process. [facility] Other 09-12-2023 Evaluation note* Encounter Date Diagnosis [...] that were not corrected during review process. [facility] Other 07-26-2023 Evaluation note* Encounter Date Diagnosis [...] that were not corrected during review process. [facility] Other 06-18-2023 NoteEchocardiology Procedure Exam Date/Time Accession # Ordering ECG Stress Exercise 04/15/2023 08:43 EDT [id number] Benjamin Baker MD CPT code 40233 Reason for Exam (ECG Stress Exercise) I95.1;Dizziness [...] Benjamin Baker MD Transcribed by: jamie Technologist: [facility]06-16-2023 Note Echocardiology Procedure Exam Date/Time Accession # Ordering Echo Transthoracic 04/15/2023 09:42 EDT [id number] Benjamin Baker MD Complete CPT code 77432 [id number] Reason for Exam (Echo Transthoracic Complete) I95.9;Hypotension Report [facility] [address] [place] [address] Adult Echocardiogram Report Name: EMMY DALE Study Date: 04/15/2023 09:02 AM BP: 105/71 mmHg Patient Location: [facility] HR: 75 : 2000 Gender: Female Height: 63 in Age: 22 yrs Ethnicity: [facility] Weight: 178 lb Reason For Study: Hypotension BSA: 1.8 m2 History: No cardiac history per patient Ordering Physician: Samuel^Benjamin^John Referring Physician: Benjamin Baker Performed By: Jonelle Alvarez [facility] Interpretation Summary Ejection Fraction = 60-65%. [...] Benjamin Baker MD Transcribed by: YOVANI Technologist: [facility]05-09-2023 Note HNO ID: [id number] Author: Martina Rodriguez MD, PhD Service: ? [...] Arthritis Father in blood . was at [facility] when baby thought to be related to [...] Plan: Will monitor thyroid (more content not included)...[facility] 03-08-2023 History of Present illness Narrative* Martina [...] Arthritis Father in blood . was at [facility] when baby thought to be related to [...] Martina Rodriguez MD, PhD [facility]* Encounter Date Diagnosis Assessment Notes [...] I would recommend referral to a different caregivers homecare. Patient does have the name of an caregivers homecare that she would like referred to. We will put that referral in today. Dr. Roger Kim - [facility] Endocrinology, [facility] February, Dizziness (ICD-10 - R42) Discussed [...] that were not corrected during review process. [facility] Other 10-06-2022 Evaluation note* Encounter Date Diagnosis [...] to ER, I highly recommend she call [facility] [employer] the second she leaves our office to follow-up.She needs to let them know about her concerns.I explained to her that even though she may assume that her [facility] will not listen her , I still want her to reach out to that office and explained to them her current concerns. She wants to know what the immediate treatment would be and work-up for spinal headache and possible leak however I cannot provide her with this information as I am not [employer]. Jul, Hip pain (ICD-10 - M25.559) While [...] I did discuss with her concerns over sopc-oic-dvocudu medications during breast-feeding. Discussed recommendations currently and please bring this up to [facility] [employer] as well for further recommendations. Does not [...] I would like her to follow-up with [facility] [employer] or go to ER regarding this dizziness and we can follow-up in office after. If nothing comes from an [facility]/spinal headache/spinal leak standpoint, we can order CT [...] that were not corrected during review process. [facility] Other 11-10-2009 History of Past illness Narrative* Problem Noted Date Resolved Date Constipation 09/09/2009 08/28/2014 documented as of this encounter (statuses as of 03/09/2023) [facility]11-10-2009 History of Past illness Narrative* Problem Noted Date Diagnosed Date Resolved Date Constipation 09/09/2009 08/28/2014 documented as of this encounter (statuses as of 08/09/2023) [facility] noteNo InformationNort [facility] Other Evaluation note* Diagnosis Vikki's thyroiditis- Primary Chronic lymphocytic thyroiditis documented in this encounter [facility] noteNo assessment [facility] Work Phone: Evaluation note* Diagnosis Vikki's thyroiditis- Primary Chronic lymphocytic thyroiditis documented in this encounter [facility] note* Diagnosis 31 weeks gestation of Third trimester state, incidental documented in this encounter [facility] N[facility]ative - Reported* Type Description Date Medical History Asthma Medical History Vasovagal syndrome- childhood (r esolved) Medical History Exercise-induced asthma Medical History Pityriasis rosea Medical History Tachycardia Medical History Vikki's thyroiditis Medical History Pre-eclampsia Surgical History [place] teeth extract 2017 Surgical History Vaginal childbirth 03/2022 Hospitalization History See surgical hx [facility] Other Hisxkgi general Narrative - Reported* Type Description Date Medical History Exercise-induced asthma Medical History Pityriasis rosea Medical History Tachycardia Medical History Vikki's thyroiditis Medical History Asthma Medical History Pre-eclampsia Medical History Hypotension Surgical History [place] teeth extract 2017 Surgical History Vaginal childbirth 03/2022 Hospitalization History See surgical hx [facility] Other History general Narrative - Reported* Type Description Date Medical History Exercise-induced asthma Medical History Pityriasis rosea Medical History Tachycardia Medical History Vikki's thyroiditis Medical History Asthma Medical History Pre-eclampsia Medical History Hypotension Medical History GERD (gastroesophageal reflux di sease) Surgical History [place] teeth extract 2017 Surgical History Vaginal childbirth 03/2022 Surgical History EGD/colonoscopy 2012 Hospitalization History See surgical hx [facility] Other Histfam general Narrative - Reported* Type Description Date Medical History Exercise-induced asthma Medical History Pityriasis rosea Medical History Tachycardia Medical History Vikki's thyroiditis Medical History Asthma Medical History Pre-eclampsia Medical History Hypotension Medical History GERD (gastroesophageal reflux di sease) Medical History Thyromegaly Surgical History [place] teeth extract 2017 Surgical History Vaginal childbirth 03/2022 Surgical History EGD/colonoscopy 2011 Hospitalization History See surgical hx [facility] Other Hisspyx general Narrative - Reported* Type Description Date Medical History Exercise-induced asthma Medical History Pityriasis rosea Medical History Tachycardia Medical History Vikki's thyroiditis Medical History Asthma Medical History Pre-eclampsia Medical History Hypotension Medical History GERD (gastroesophageal reflux di sease) Medical History Thyromegaly Medical History Other idiopathic scoliosis, thor acic region Surgical History [place] teeth extract 2017 Surgical History Vaginal childbirth 03/2022 Surgical History EGD/colonoscopy 2011 Hospitalization History See surgical hx [facility] Other Summary Purpose Family History No Family [...] gastriti s with hemorrhage (K29.01) Referral Organization [facility] Referring Provider First Name Lyndon Referring Provider Last Name Joserick Referring Provider Specialty Nurse Pract itioner Referred Organization [facility] Referred Provider Patricio Urena Referred Address [address],[facility] [address] ,[place], [place],[address] Referred Provider Specialty Gastroentero logy Referral Priority Routine General Notes Misti Vivas 023 10:08:56 AM >Received today. [facility] request us to fill out their form and fax to them. They will review the referral and call patient to schedule them. Referral was fax. Misti Vivas 07/12/2023 01:31:38 PM >Per telephone encounter, patient wants to try [facility]. Sent P2P Reason *03/08 Dr. Hawa Kim - [facility], [facility]; [employer]- please send this note with 2 previous notes Diagnosis 1 Vikki's thyroidi tis (E06.3) Referral Organization [facility] Referring Provider First Name Lyndon Referring Provider Last Name [facility] Referring Provider Specialty Nurse Pract itioner Referred Organization [facility] Referred Address [address] [place], [place],[address] Referred Provider Specialty Endocrinolog y Referral Priority Routine [facility] 01:21:05 PM >Received today and referral was fax with the [facility] Form. They will review and call patient to schedule Reason *03/08 [facility]- [facility]; Please send this note with 2 previous notes Diagnosis 1 Dizziness (R42) Referral Organization [facility] [employer] Referring Provider First Name Lyndon Referring Provider Last Name [facility] Referring Provider Specialty Nurse Pract itioner Referred Organization [facility] Referred Provider Jose Dominguez Referred Address [address] [place], [place],[address] Referred Provider Specialty Neurology Referral Priority Routine [...] section and content) DATE CREATED AUTHOR 08/06/2022 [facility] DATE CREATED AUTHOR AUTHOR'S ORGANIZ ATION 08/20/[address] [facility] DATE CREATED AUTHOR AUTHOR'S ORGANIZ ATION 04/06/2024 [facility] DATE CREATED AUTHOR AUTHOR'S ORGANIZ ATION 05/03/2024 [facility] DATE CREATED AUTHOR AUTHOR'S ORGANIZ ATION 05/18/2024 [facility] DATE CREATED AUTHOR AUTHOR'S ORGANIZ ATION 06/14/2024 [facility] DATE CREATED AUTHOR AUTHOR'S ORGANIZ ATION 06/26/2024 [facility] DATE CREATED AUTHOR AUTHOR'S ORGANIZ ATION 07/07/2024 [facility] DATE CREATED AUTHOR AUTHOR'S ORGANIZ ATION 07/24/2024 [facility] DATE CREATED AUTHOR AUTHOR'S ORGANIZ ATION 07/29/2024 [facility] DATE CREATED AUTHOR AUTHOR'S ORGANIZ ATION 08/01/2024 [facility] EPIC REASON FOR VISIT (unrecogniz ed section and content) Reason Comments New Patient Reason Comments Routine Visit Source Comments (unrecognize d section and content) In the event this informatio n is protected by the Federal Confidentiality of Alcohol and Drug Abuse Patient Records regulations: The Federal rules restrict any use of the information to criminally investigate or prosecute any alcohol or drug abuse patient.[facility] the event this information is protected by the Federal Confidentiality of Alcohol and Drug Abuse Patient Records regulations: The Federal rules restrict any use of the information to criminally investigate or prosecute any alcohol or drug abuse patient.[facility] Care Teams (unrecognized sec tion and content) Ctrs Relationship Specialty Start Date End Date Joseelham LyndonJAMES [address] [id number] PCP - General Family Medicine 03/08/23 JoseLyndon lizarraga [employer] CYLINDER [address] [address] Referring Family Medicine 03/04/23 Team Status: Active Member Role Status Dates Lyndon Dalal APRN Primary Care Provider Active Team Status: Inactive Member Role Status Dates Lyndon Dalal APRN Primary Care Provider, Attend ing Provider Active Ctrs Relationship Specialty Start Date End Date EufemiarickDallasa JAMES [address] [address] PCP - General Family Medicine 03/08/23 Lyndon Dalal CNP [address] [address] Referring Family Medicine 03/04/23 Ctrs Relationship Specialty Start Date End Date Ge Cloud MD [address] [phone] PCP - General Family Medicine 01/25/24 Ctrs Relationship Specialty Start Date End Date Ge Cloud MD [address] [phone] PCP - General Family Medicine 01/25/24 Goals (unrecognized section and content) Goals may [...] BE BASED ON THE PRIMARY CLINICAL RECORDS. [facility]. provides no warranty or guarantee of the accuracy or completeness of information in this document.
[2024-08-04 14:35] VITALS: BP 112/66; PULSE 85
== END 2024-08-04 15:20 | disposition home or self-care (01) ==
LOC: US 06:28 → FBC 13:55
PROVIDERS: PCP Family Medicine; Visit Provider Physician Assistant
DX: O28.8 Other abnormal findings on antenatal screening of mother (principal); E07.9 Disorder of thyroid, unspecified; Z87.59 Personal history of other complications of pregnancy, childbirth and the puerperium; Z3A.32 32 weeks gestation of pregnancy
CPT/HCPCS: 76816; 76818

== ENCOUNTER 2024-08-08 07:05 | Outpatient (OUT) | payer OTHER, SELFPAY ==
--- OUTSIDE RECORDS SUMMARY | 2024-08-08 07:07 | XMS_ITS | CCD ---
Author Organization [facility] Care Team Providers Care Emergency Care Attendant Name Role Phone Lyndon Dalal Primary Care Unavailable Juancarlos Maria Attending Unavailable Juancarlos Maria Admitting Unavailable Yoselin, Lyndon Unavailable Dallas Dalal CNPa Unavailable [phone] Lyndon Dalal CNP Primary Care Provider ANKIT Dalal Primary Care Provider ANKIT Dalal Attending Provider YOSELIN, LYNDON Primary Care Unavailable MARTINA RODRIGUEZ Referring Unavailable EASTERWOOD, LYNDON Primary Care Unavailable MARTINA RODRIGUEZ Referring Unavailable JERMAINE RODRIGUEZAMA M Referring Unavailable EASTERWOOD, LYNDON Primary Care Unavailable MARTINA RODRIGUEZ M Attending Unavailable Daim CANSECO Admitting Unavailable Dami CANSECO Attending Unavailable [...] Care Unavailable Easterwood, Lyndon J Admitting Unavailable AJITH, Dami R Attending Unavailable AJITH, Dami R Admitting Unavailable AJITH, Dami R Admitting Unavailable AJITH, Dami R Attending Unavailable Pedro Luis VELAZQUEZ, [place] Primary Care Provider AJITH, DAMI Attending Unavailable AJITH, DAMI Attending Unavailable AJITH, DAMI Attending Unavailable MELO, LELE Attending Unavailable AJITH, DAMI Attending Unavailable AJITH, DAMI Attending Unavailable MELO, LELE Attending Unavailable AJITH, DAMI Attending Unavailable Allergies Allergy Classification Reported Allergen(s) Allergy Type Date of Onset Reaction(s) Facility Sulfonamides (antibiotic) (1 source) Sulfonamides (Antibiotic); Translations: [sulfa drugs] Drug Allergy [facility] Repository (6 sources) Sulfonamides (Antibiotic); Translations: [SULFA (SULFONAMIDE ANTIBIOTICS)] Drug allergy (disorder) [facility] Repository (2 sources) Sulfonamide Drug allergy [employer] Ronda Fidus Writer Other (17 sources) Substance with sulfonamide structure and antibacterial mechanism of action (substance) Drug allergy 5 rash [facility] (3 sources) Sulfonamides (Antibiotic); Translations: [sulfa drugs] Propensity to adverse reactions (disorder) [facility] Repository Medications Current Medications Medication [...] a day for 5 days Aug, Active Tupqdkgn-Pxy-Fk-FA ( 1 + IRON PO) (3 sources) Start: 024 Sqixcvgi-Hdr-Ym-FA ( 1 + IRON PO) 01/20/2024 Active [...] by fredi th every twenty-four hours Biotin 06863 MCG 1 tablet Orally Once a day OTC Not-Taking/PRN take 1 tablet by fredi th every twenty-four hours Biotin 44568 MCG 1 tablet Orally Once a day OTC Not-Taking take 1 tablet by mouth once maria del carmen y Biotin 76773 MCG 1 tablet Orally Once a day OTC Not-Taking BIOTIN ORAL Take by mouth q 24 HR. 0 Active take 1 tablet by mouth once [place] car[place] y Biotin 30470 MCG 1 tablet Orally Once a day [...] Comment on above: Take 1 tablet by [facility] once daily. Iodine (14 sources) Iodine 225MCG [...] Probiotic OTC, daily Active lactobacillus rhamnosus gg [id number] unt oral capsule (1 source) Start: 5 End: 3 take 1 capsule by mouth once daily lactobacillus rhamnosus (CULTURELLE) 10 billion cell capsule Indications: Abdominal pain Take 1 capsule by mouth once daily. 30 capsule 2 04/30/2015 03/08/2023 Discontinued Comment on above: Take 1 capsule by [facility] once daily. Moringa (14 sources) Moringa 6000MG, [...] Comment on above: Take 1 capsule by [facility] once daily. pantoprazole 20 mg delayed release [...] UA Negative Negative - 4(70) +++ mg/dL [facility] Blood, UA Negative Negative - 50 Juanito/mcL [facility] Clarity, UA Clear [facility] Color, UA Yellow [facility] Glucose, UA Negative Negative - 2000(110) ++++ mg/dL [facility] Interpretation and review of laboratory results Abnormal [facility] Ketones, UA Negative Negative - 160(16) ++++ mg/dL [facility] Leukocytes, UA Positive Negative - 500+++ Ken/mcL [facility] Comment on above: small Nitrite, UA Negative Negative - Positive [facility] pH, UA 6.5 5 - 9 [facility] Protein, UA Negative Negative - 2000(20) ++++ mg/dL [facility] Spec Grav, UA 1.010 1 - 1.03 [facility] Urobilinogen, UA 0.2 0.2 - 12 mg/dL [facility] CBC w/ Auto Diffon 4 Basophils/100 WBC (Bld) 0.4 % Normal 0.0-2.0 [facility] Comment on above: Performed By: #### 2 [id number] #### [facility] Laboratory [address] [place] [address] Basophils/Leukocyt es Auto (Bld) [Pure # fraction] 0.0 E9/L Normal 0.0-0.2 [facility] Comment on above: Performed By: #### 2 [id number] #### [facility] Laboratory [address] [place] [address] Eosinophils (Bld) [#/Vol] 0.2 E9/L Normal 0.0-0.5 [facility] Comment on above: Performed By: #### 2 955239 #### [facility] [address] [place] [address] Eosinophils/100 WBC (Bld) 2.9 % Normal 0.0-8.0 [facility] Comment on above: Performed By: #### 2 823870 #### [facility] [address] [place] [address] Erythrocyte distribution width (RBC) [Ratio] 13.6 % Normal 10.9-14.2 [facility] Comment on above: Performed By: #### 2 937976 #### [facility] Laboratory [address] [place] [address] Hematocrit (Bld) [Volume fraction] 37.3 % Normal 34.0-46.0 [facility] Comment on above: Performed By: #### 2 664395 #### [facility] [address] [place] [address] Hemoglobin (Bld) [Mass/Vol] 12.8 g/dL Normal 12.0-16.0 [facility] Comment on above: Performed By: #### 2 541667 #### [facility] [address] [place] [address] Lymphocytes (Bld) [#/Vol] 1.9 E9/L Normal 1.0-4.0 [facility] Comment on above: Performed By: #### 2 013464 #### [facility] [address] [place] [address] Lymphocytes/100 WBC (Bld) 24.0 % Normal 14.0-50.0 [facility] Comment on above: Performed By: #### 2 356757 #### [facility] [address] [place] [address] MCH (RBC) [Entitic mass] 30.5 pg Normal 27.0-34.0 [facility] Comment on above: Performed By: #### 2 523737 #### [facility] [address] [place] [address] MCHC (RBC) [Mass/Vol] 34.2 g/dL Normal 31.4-36.0 [facility] Comment on above: Performed By: #### 2 833739 #### [facility] [address] [place] [address] MCV (RBC) [Entitic vol] 89.0 fL Normal 80.0-100.0 [facility] Comment on above: Performed By: #### 2 715310 #### [facility] [address] [place] [address] Monocytes (Bld) [#/Vol] 0.4 E9/L Normal 0.2-1.0 [facility] Comment on above: Performed By: #### 2 005155 #### [facility] [address] [place] [address] Neutrophils (Bld) [#/Vol] 5.5 E9/L Normal 2.0-7.5 [facility] Comment on above: Performed By: #### 2 441553 #### [facility] [address] [place] [address] Neutrophils/100 WBC (Bld) 67.8 % Normal 36.0-75.0 [facility] Comment on above: Performed By: #### 2 127349 #### [facility] [address] [place] [address] Platelet mean volume (Bld) [Entitic vol] 8.3 fL Normal 6.4-10.8 [facility] Comment on above: Performed By: #### 2 974876 #### [facility] [address] [place] [address] Platelets (Bld) [#/Vol] 267.0 E9/L Normal 150.0-500.0 [facility] Comment on above: Performed By: #### 2 109235 #### [facility] [address] [place] [address] RBC (Bld) [#/Vol] 4.2 E12/L Low 4.3-5.9 [facility] Comment on above: Performed By: #### 2 952935 #### [facility] [address] [place] [address] WBC corrected for nucl RBC Auto (Bld) [#/Vol] 8.0 E9/L Normal 4.0-11.0 [facility] Comment on above: Performed By: #### 2 084756 #### [facility] [address] [place] [address] Free T4on 07-23-2024 Free T4 [Mass/Vol] 0.57 ng/dL Low 0.58-1.64 [facility] Comment on above: Performed By: #### 2 262386 #### [facility] [address] [place] [address] Lyteson 07-23-2024 Anion gap [Moles/Vol] 12 mmol/L Normal 6-16 [facility] Comment on above: Performed By: #### 2 416159 #### [facility] [address] [place] [address] Chloride [Moles/Vol] 105 mmol/L Normal 101-111 [facility] Comment on above: Performed By: #### 2 475938 #### [facility] [address] [place] [address] CO2 [Moles/Vol] 24 mmol/L Normal 21-31 [facility] Comment on above: Performed By: #### 2 303605 #### [facility] [address] [place] [address] Potassium [Moles/Vol] 3.5 mmol/L Normal 3.5-5.3 [facility] Comment on above: Performed By: #### 2 337321 #### [facility] [address] [place] [address] Sodium [Moles/Vol] 137 mmol/L Normal 135-145 [facility] Comment on above: Performed By: #### 2 929641 #### [facility] [address] [place] [address] TSHon 07-23-2024 TSH Qn 2.26 m[IU]/L Normal 0.34-5.60 [facility] Comment on above: Performed By: #### 2 697096 #### [facility] [address] [place] [address] CMPon 06-25-2024 Albumin [Mass/Vol] 3.6 g/dL Normal 3.3-5.0 [facility] Comment on above: Performed By: #### 2 448216 #### [facility] [address] [place] [address] Albumin/Globulin (S) [Mass conc ratio] 1.3 Normal 1.1-2.2 [facility] Comment on above: Performed By: #### 2 585625 #### [facility] [address] [place] [address] ALP [Catalytic activity/Vol] 63 Int._Unit/L Normal 21-98 [facility] Comment on above: Performed By: #### 2 822444 #### [facility] [address] [place] [address] ALT No additional P-5'-P [Catalytic activity/Vol] 13 Int._Unit/L Normal 6-46 [facility] Comment on above: Performed By: #### 2 730776 #### [facility] [address] [place] [address] Anion gap [Moles/Vol] 10 mmol/L Normal 6-16 [facility] Comment on above: Performed By: #### 2 323719 #### [facility] [address] [place] [address] AST [Catalytic activity/Vol] 12 Int._Unit/L Normal 5-43 [facility] Comment on above: Performed By: #### 2 389287 #### [facility] [address] [place] [address] Bilirubin [Mass/Vol] 0.7 mg/dL Normal 0.0-1.1 [facility] Comment on above: Performed By: #### 2 686733 #### [facility] [address] [place] [address] Calcium [Mass/Vol] 8.6 mg/dL Low 8.9-11.1 [facility] Comment on above: Performed By: #### 2 434394 #### [facility] [address] [place] [address] Chloride [Moles/Vol] 104 mmol/L Normal 101-111 [facility] Comment on above: Performed By: #### 2 974840 #### [facility] [address] [place] [address] CO2 [Moles/Vol] 25 mmol/L Normal 21-31 [facility] Comment on above: Performed By: #### 2 113613 #### [facility] [address] [place] [address] Creatinine [Mass/Vol] 0.4 mg/dL Low 0.5-1.3 [facility] Comment on above: Performed By: #### 2 362037 #### [facility] [address] [place] [address] Globulin (S) [Mass/Vol] 2.8 g/dL Normal 1.4-4.0 [facility] Comment on above: Performed By: #### 2 559929 #### [facility] [address] [place] [address] Glucose [Mass/Vol] 97 mg/dL Normal 55-199 [facility] Comment on above: Performed By: #### 2 098822 #### [facility] [address] [place] [address] Potassium [Moles/Vol] 3.4 mmol/L Low 3.5-5.3 [facility] Comment on above: Performed By: #### 2 927497 #### [facility] [address] [place] [address] Protein [Mass/Vol] 6.4 g/dL Normal 6.0-7.8 [facility] Comment on above: Performed By: #### 2 823096 #### [facility] [address] [place] [address] Sodium [Moles/Vol] 136 mmol/L Normal 135-145 [facility] Comment on above: Performed By: #### 2 840903 #### [facility] [address] [place] [address] Urea nitrogen [Mass/Vol] 8 mg/dL Normal 5-21 [facility] Comment on above: Performed By: #### 2 197079 #### [facility] [address] [place] [address] Urea nitrogen/Creatinin e [Mass ratio] 20 No Units Normal 10-20 [facility] Comment on above: Performed By: #### 2 298110 #### [facility] [address] [place] [address] TSHon 06-25-2024 TSH Qn 3.63 m[IU]/L Normal 0.34-5.60 [facility] Comment on above: Performed By: #### 2 337865 #### [facility] [address] [place] [address] eGFRon 06-25-2024 eGFR 142 mL/min/1.73 m2 Normal >=59 [facility] Comment on above: Order Comment: Order added by Discern Expert. Performed By: #### 1 [id number] #### [facility] [address] [place] [address] TSHon 05-31-2024 TSH Qn 1.99 m[IU]/L Normal 0.34-5.60 [facility] Comment on above: Performed By: #### 2 531630 #### [facility] [address] [place] [address] TSHon 05-01-2024 TSH Qn 1.54 m[IU]/L Normal 0.34-5.60 [facility] Comment on above: Performed By: #### 2 076651 #### [facility] [address] [place] [address] Consent for Treatmenton Consent for Treatment [id number] F Normal [facility] Physician Orderon 04-04-2024 Physician Order [id number]#[id number] FF Normal [facility] TSHon 04-04-2024 TSH Qn 2.73 m[IU]/L Normal 0.34-5.60 [facility] Comment on above: Performed By: #### 2 935399 #### [facility] Laboratory [address] [place] [address] XR Spine Cervical 4 or 5 Vie [...] mGy = . DAP = . Normal [facility] XR Spine Thoracic 3 Viewson [...] mGy = . DAP = . Normal [facility] Physician Orderon 09-15-2023 Physician Order [id number]#1.00T IFF Normal [facility] T4 Free SerPl-mCncon 023 Free T4 [Mass/Vol] 1.2 ng/dL Normal 0.9-1.7 [facility] Comment on above: Order Comment: Speci men Type: BLOOD SPECIMEN Ordering Facility: [facility] Address: [address] [place] [address] Performed By: #### 3 024-7, 3016-3 #### [facility] CLIA [id number] [address] STATES OF [facility] TSH SerPl-aCncon 08-18-2023 TSH Qn 2.280 m[IU]/L Normal 0.270-4.200 [facility] Comment on above: Order Comment: Rozina florez Type: BLOOD SPECIMEN Ordering Facility: [facility] Address: [address] [place] [address] Result Comment: If t he patient is , TSH reference range varies by gestational period: First Trimester (weeks 9-12): 0.180-2.990 mIU/L Second Trimester: 0.110-3.980 mIU/L Third Trimester: 0.480-4.710 mIU/L Noe Ramon et al. A Practical Approach for the Verifications and Determination of Site- and Trimester-Specific Reference Intervals for Thyroid Function tests in . Thyroid, 2019:29:3:412-420. Gregor Banegas, et al. 2017 Guidelines of the [place] Thy[employer] Association for the Diagnosis and Management of Thyroid Disease during and the . Thyroid, 2017:27:3:315-389. Performed By: #### 3 024-7, 3016-3 #### [facility] CLIA [id number] [address] [place] [address] [place] Consent for Treatmenton Consent for Treatment [id number]#[id number]: 127 Normal [facility] US Renalon 07-08-2023 US [...] M.D. Transcribed by: MORENO Technologist: EMILY Normal [facility] XR Abdomen 1 Viewon [...] mGy = . DAP = . Normal [facility] Ambulatory Visit Summaryon 0 06-21-2023 Ambulatory Visit Summary EMMY DALE :2000 Visit Date:06/21/2023 Ambulatory Visit Instructions Your Diagnosis Urinary crystals Recurrent UTI Urethral stricture Gross hematuria Tests Performed Urnls Dip Stick Auto w/o Microscopy POC 79683 Your Care Team Attending Physician - SOBEIDA [...] will call pt. Where: [address] [place] [address] You Need to Complete the Following US [...] No, Kidney stones, pp_set_radiology_subspec ialty, [place] - [place] Medications What How Much When Instructions Unchanged busPIRone (busPIRone 10 mg Tab) 2 times a day Contact prescribing physician if questions or concerns Unchanged levothyroxine (Synthroid 25 mcg(0.025 mg) Tab) Every day Contact prescribing physician if questions or concerns Test Results Urnls Dip Stick Auto w/o Microscopy POC 57374 (06/21/2023) Bilirubin Urine Dipstick - Negative Blood Urine Dipstick - Negative Glucose Urine Dipstick - Negative Ketones Urine Dipstick - Negative Leukocytes Urine Dipstick - Negative Nitrite Urine Dipstick - Negative Protein Urine Dipstick - Negative Specific [place] Urine Dipstick - 1.010 Urine Appearance Urine [...] ? 8 oz (237 mL) of milk, vgqstzi-oaqduqtlmqan-ybt ry milk, and calcium-fortifiedfruit juice. Calcium-fortified means [...] wheat cereals. (more content not included)... Normal [facility] Patient Educationon 06-21-20 Patient Education [...] ? 8 oz (237 mL) of milk, llffzri-dnrsqfzgixxl-xun ry milk, and calcium-fortifiedfruit juice. Calcium-fortified means [...] Spinach (cooked), rhubarb, beets, sweet potatoes, and Faroese chard. ? Peanuts. ? Potato chips, kiswahili fries, and baked potatoes with skin on. ? Nuts and nut products. ? Chocolate. ? If you regularly take a diuretic medicine, make sure to eat at least 1 or 2 servings of fruits or vegetables that are high in potassium each day. These include: ? Avocado. ? Banana. ? [place], prune, carrot, or tomato juice. ? Baked [...] fish oil, or vitamin B6. ? Take uwfn-mxu-pvniptw and prescription medicines only as told by your health care provider. These include supplements. What foods should I limit? Limit your in (more content not included)... Normal [facility] Urology Office/Clinic Noteon 06-21-2023 Urology [...] pass. [place]DEL[place] [facility] [place] if [place] persistent hydro/any remaining [...] Urnls Dip Stick Auto w/o Microscopy POC 91775 4. Gross hematuria (R31.0: Gross hematuria) CORDELIA [...] When Contact Information SOBEIDA THOMPSON PA-C, URL [address] [address] Additional Instructions: will call pt. Patient Education [...] History Cystour (more content not included)... Normal [facility] Comment on above: Result Comment: Elec tronically Signed By: SOBEIDA THOMPSON PA-C\.br\Date and Time Signed: 06/21/23 12:44 EDT\.br\Electronically Co-Signed By: Laura Lou\.br\Date and Time Co-Signed: 06/21/23 12:25 EDT PAP [id number] 06-07-2023 Cytology report Cyto stain Doc (Cvx/Vag) Note Invalid Interpretation Code [facility] Comment on above: Result Comment: TEST S RESULT FLAG UNITS REF RANGE LAB Clinician Provided Cytology Information Source.............Endocervix No. of containers..01 ThinPrep Vial DIAGNOSIS: 01 NEGATIVE FOR INTRAEPITHELIAL LESION OR MALIGNANCY. Specimen adequacy: 01 Satisfactory for evaluation. Endocervical and/or squamous metaplastic cells (endocervical component) are present. Performed by: Clif Bolaños Diesel Mechanic Helper (ASCP) . 01 Note: Note 01 The [...] Low,>-Panic High,A-Abnormal,AA-Critical Abnormal Performed at: [address] [facility] [address] Lisa Ellington MD, Performed at: [facility] [address] [id number] MD Chandana Gonzalez Performed By: #### 3 [id number] ####[facility] [address] [place] [address] Consent for Treatmenton Consent for Treatment [id number]: 127 Normal [facility] Heart and Vascular Office/Cl inic [...] but unfortunately she was called by the commercial helicopter pilot and told that it was not working. [...] her Sy (more content not included)... Normal [facility] Comment on above: Result Comment: Elec tronically Signed By: SAMUEL VELAZQUEZ, Benjamin Lopez\.cee\Date and Time Signed: 06/01/23 14:25 EDT PAP [id number] 06-01-2023 Collection Technique BRUSH-SPATULA Normal [facility] Comment on above: Performed By: #### 3 [id number] ####[facility] [address] [place] [id number] Gynecological Body Site ENDOCERVIX Normal [facility] Comment on above: Performed By: #### 3 [id number] ####[facility] [address] [place] [id number] Physician Orderon 06-01-2023 Physician Order [id number]#1.00CD :127 [facility] Physician Order [id number]#1.00CD: 127 [facility] C Urineon 05-27-2023 Bacteria identified Cx Nom [...] Locations R1: This test was performed at: [facility], [address] [place] [address], [address] , , Normal [facility] Comment on above: Performed By: #### 2 [id number] ####[facility] [address] [place] [address] T4 Free SerPl-mCncon 023 Free T4 [Mass/Vol] 1.2 ng/dL Normal 0.9-1.7 [facility] Comment on above: Order Comment: Rozina florez Type: BLOOD SPECIMEN Ordering Facility: [facility] Address: [address] [place], [place] [id number] Performed By: #### 3 024-7, 3016-3 #### [facility] CLIA [id number] [address] [facility] [place] [address] [place] TSH SerPl-aCncon 05-26-2023 TSH Qn 2.260 m[IU]/L Normal 0.270-4.200 [facility] Comment on above: Order Comment: Speci vikik Type: BLOOD SPECIMEN Ordering Facility: [facility] Address: [address] [place] [address] Result Comment: If t he patient is , TSH reference range varies by gestational period: First Trimester (weeks 9-12): 0.180-2.990 mIU/L Second Trimester: 0.110-3.980 mIU/L Third Trimester: 0.480-4.710 mIU/L Noe Ramon et al. A Practical Approach for the Verifications and Determination of Site- and Trimester-Specific Reference Intervals for Thyroid Function tests in . Thyroid, 2019:29:3:412-420. Gregro Banegas, et al. 2017 Guidelines of the [place] Thyroid Association for the Diagnosis and Management of Thyroid Disease during and the . Thyroid, 2017:27:3:315-389. Performed By: #### 3 024-7, 3016-3 #### [facility] CLIA [id number] [address] [place] [address] [place] Consent for Treatmenton 05-01 Consent for Treatment [id number]: 127 Normal [facility] Physician Orderon 05-25-2023 Physician Order [id number]#[id number]:12 7 Normal [facility] Urinalysison 05-25-2023 Bacteria LM Ql (Urine sed) 2+ /HPF Abnormal Trace [facility] Comment on above: Performed By: #### 1 [id number] ####[facility] [address] [place] [address] Bilirubin Ql (U) Negative Normal Negative [facility] Comment on above: Performed By: #### 1 [id number] ####[facility] [address] [place] [address] Clarity (U) SL CLOUDY Abnormal Clear [facility] Comment on above: Performed By: #### 1 [id number] ####[facility] [address] [place] [address] Color (U) YELLOW Normal Yellow [facility] Comment on above: Performed By: #### 1 [id number] ####[facility] [address] [place] [address] Crystals LM Ql (Urine sed) Present Normal [facility] Comment on above: Performed By: #### 1 [id number] ####[facility] [address] [place] [address] Epithelial cells.squamous LM.HPF (Urine sed) [#/Area] 0-2 Normal 0-2 [facility] Comment on above: Performed By: #### 1 [id number] ####[facility] [address] [place] [address] Glucose Test strip (U) [Mass/Vol] Negative Normal Negative [facility] Comment on above: Performed By: #### 1 [id number] ####[facility] [address] [place] [address] Hemoglobin Ql (U) 2+ Abnormal Negative [facility] Comment on above: Performed By: #### 1 [id number] ####[address] [address] Ketones (U) [Mass/Vol] Negative Normal Negative [facility] Comment on above: Performed By: #### 1 [id number] ####[address] [address] [place].plasma/Lit hium.RBC (Bld) [Mass ratio] 0-3 Normal 0-3 [facility] Comment on above: Performed By: #### 1 [id number] ####[address] [address] Mucus Ql (Urine sed) TRACE Normal [facility] Comment on above: Performed By: #### 1 [id number] ####[facility] [address] [place] [address] Nitrite Ql (U) Positive Abnormal Negative [facility] Comment on above: Performed By: #### 1 [id number] ####[address] [address] pH (U) 6.0 [pH] Invalid Interpretation Code 5.0-9.0 [facility] Comment on above: Performed By: #### 1 [id number] ####[facility] [address] [place] [address] Protein (U) [Mass/Vol] Negative Normal Negative [facility] Comment on above: Performed By: #### 1 [id number] ####[facility] [address] [place] [address] Specific gravity (U) [Rel density] 1.010 Invalid Interpretation Code 1.005-1.030 [facility] Comment on above: Performed By: #### 1 [id number] ####[facility] [address] [place] [address] Type of Urine collection method Clean Catch Normal [facility] Comment on above: Performed By: #### 1 [id number] ####[facility] [address] [place] [address] Urobilinogen Qn (U) 0.2 {Catarino'U}/dL Normal 0.0-1.0 [facility] Comment on above: Performed By: #### 1 [id number] ####[facility] [address] [place] [address] WBC Auto Ql (U) 1+ Abnormal Negative [facility] Comment on above: Performed By: #### 1 [id number] ####[facility] [address] [place] [address] WBC LM.HPF (Urine sed) [#/Area] 26-30 Abnormal 0-5 [facility] Comment on above: Performed By: #### 1 [id number] ####[facility] [address] [place], [place] [address] Consent for Treatmenton 04-30 Consent for Treatment [id number]: 127 Normal [facility] Consent for Treatmenton Consent for Treatment [id number]: 127 Normal [facility] Heart and Vascular Office/Cl in [...] 1 month. (more content not included)... Normal [facility] Comment on above: Result Comment: Elec tronically Signed By: Samuel VELAZQUEZ, Benjamin Le.br\Date and Time Signed: 05/05/23 16:11 EDT Physician Orderon 05-05-2023 Physician Order [id number] :127 Normal [facility] Stress EKG Tracingson 2022 Stress EKG Tracings [id number]#1.00CD: 127 Normal [facility] Consent for Treatmenton 03-31 Consent for Treatment [id number]#[id number]: 127 Normal [facility] T3Free SerPl-mCncon 04-06-20 23 Free T3 [Mass/Vol] 3.3 pg/mL Normal 2.3-4.1 [facility] Comment on above: Order Comment: Speci men Type: BLOOD SPECIMEN Ordering Facility: [facility] Address: [address] [place] [address] Performed By: #### 3 051-0, 3024-7, 3016-3 #### [facility] CLIA [id number] [address] [place] [address] [place] T4 Free SerPl-mCncon 023 Free T4 [Mass/Vol] 1.4 ng/dL Normal 0.9-1.7 [facility] Comment on above: Order Comment: Speci men Type: BLOOD SPECIMEN Ordering Facility: [facility] Address: [address] [address] Performed By: #### 3 051-0, 3024-7, 3016-3 #### [facility] CLIA [id number] [address] [place] [address] [place] THYROGLOBULIN ABon 3 Thyroglobulin Ab Qn 1.8 [IU]/mL Normal <4.0 [facility] Comment on above: Order Comment: Rozina florez Type: BLOOD SPECIMEN Ordering Facility: [facility] Address: [address] [place] [address] Result Comment: The Thyroglobulin Antibody test was performed using the [employer] Unicel DXI paramagnetic particle chemiluminescent immunoassay method. Results obtained with different assay methods or kits cannot be used interchangeably. Performed By: #### T JASON #### [facility] CLIA [id number] [address] [place] [address] OF SID THYROID PEROXIDASE ANTIBODY BLOODon 04-06-2023 [place] 4572.0 [IU]/mL High <5.6 [facility] Comment on above: Order Comment: Rozina florez Type: BLOOD SPECIMEN Ordering Facility: [facility] Address: [address] [place] [address] Result Comment: Thyr oid Peroxidase Antibody test is used as an aid in diagnosis of autoimmune thyroid disease. Clinical correlation is required. Performed By: #### M ICRO #### [facility] CLIA [id number] [address] [place] [address] [place] TSH SerPl-aCncon 04-06-2023 TSH Qn 6.050 m[IU]/L High 0.270-4.200 [facility] Comment on above: Order Comment: Rozina florez Type: BLOOD SPECIMENOrdering Facility: [facility] Address: [address] [place] [address] Result Comment: If t he patient is , TSH reference range varies by gestational period: First Trimester (weeks 9-12): 0.180-2.990 mIU/L Second Trimester: 0.110-3.980 mIU/L Third Trimester: 0.480-4.710 mIU/L Noe Ramon et al. A Practical Approach for the Verifications and Determination of Site- and Trimester-Specific Reference Intervals for Thyroid Function tests in . Thyroid, 2019:29:3:412-420. Gregor E, et al. 2017 Guidelines of the [place] Thyroid Association for the Diagnosis and Management of Thyroid Disease during and the . Thyroid, 2017:27:3:315-389. Performed By: #### 3 051-0, 3024-7, 3016-3 ####[facility] MICHAEL [id number] [place] [id number] [place] CNOVon 03-08-2023 CNOV Office Visit (ENDOLN ) -------- EMMY DALE ([id number]) 1 F Date Time Provider Department 03/08/23 [...] Arthritis Father in blood . was at [facility] when baby thought to be related [...] involuntary motions. (more content not included)... Normal [facility] Vital Signs Date Time Vital Sign Value Performing Clinician Facility 07-31-2024 08:55-0400 Body weight 99.34 kg [employer] Phone: [facility] 07-31-2024 08:55-0400 Diastolic blood pressure 68 mm[Hg] [employer] Phone: [facility] 07-31-2024 08:55-0400 Systolic blood pressure 112 mm[Hg] [email or web address] Work Phone: [facility] 09-15-2023 13:30-0500 Body height 162.56 cm [employer] Other [employer] Other 09-15-2023 13:30-0500 Body mass index (BMI) [Ratio] 30.21 kg/m2 [employer] Other [employer] Other 09-15-2023 13:30-0500 Body weight 79.83 kg [employer] Other [employer] Other 09-15-2023 13:30-0500 Diastolic blood pressure 68 mm[Hg] Lyndon Easterwood Other [employer] Other 09-15-2023 13:30-0500 Respiratory rate 18 /min Lyndon Easterwood Other [employer] Other 09-15-2023 13:30-0500 SaO2% (BldA) [Mass fraction] 99 % Lyndon Easterwood Other [employer] Other 09-15-2023 13:30-0500 Systolic blood pressure 118 mm[Hg] Lyndon Easterwood Other [employer] Other 07-12-2023 09:15-0400 Body height 162.56 cm Lyndon Easter24/7 [employer] Other [employer] Other 07-12-2023 09:15-0400 Body mass index (BMI) [Ratio] 29.86 kg/m2 Lyndon Easterwood Other [employer] Other 07-12-2023 09:15-0400 Body temperature 98.6 [degF] Lyndon Easterwood Other [employer] Other 07-12-2023 09:15-0400 Body weight 78.93 kg Lyndon Easterwood Other [employer] Other 07-12-2023 09:15-0400 Diastolic blood pressure 70 mm[Hg] Lyndon Easterwood Other [employer] Other 07-12-2023 09:15-0400 Respiratory rate 20 /min Lyndon Easterwood Other [employer] Other 07-12-2023 09:15-0400 SaO2% (BldA) [Mass fraction] 98 % Lyndon Easterwood Other [employer] Other 07-12-2023 09:15-0400 Systolic blood pressure 112 mm[Hg] Lyndon Easterwood Other [employer] Other 05-25-2023 17:30-0400 Body height 162.56 cm Lyndon Easterwood Other [employer] Other 05-25-2023 17:30-0400 Body mass index (BMI) [Ratio] 30.04 kg/m2 Lyndon Easterwood Other [employer] Other 05-25-2023 17:30-0400 Body temperature 98.2 [degF] Lyndon Easterwood Other [employer] Other 05-25-2023 17:30-0400 Body weight 79.38 kg Lyndon Easterwood Other [employer] Other 05-25-2023 17:30-0400 Diastolic blood pressure 72 mm[Hg] Lyndon Easterwood Other [employer] Other 05-25-2023 17:30-0400 Respiratory rate 20 /min Lyndon Easterwood Other [employer] Other 05-25-2023 17:30-0400 SaO2% (BldA) [Mass fraction] 99 % Lyndon Easterwood Other [employer] Other 05-25-2023 17:30-0400 Systolic blood pressure 110 mm[Hg] Lyndon Easterwood Other [employer] Other 03-08-2023 16:13-0400 Body weight 83.92 kg Martina Rodriguez MD, PhD Work Phone: [facility] 03-08-2023 16:13-0400 Diastolic blood pressure 76 mm[Hg] Martina Rodriguez MD, PhD Work Phone: [facility] 03-08-2023 16:13-0400 Systolic blood pressure 116 mm[Hg] Martina Rodriguez MD, PhD Work Phone: [facility] 08-05-2022 16:00-0400 Body height 162.56 cm Lyndon Easterwood Other [employer] Other 08-05-2022 16:00-0400 Body mass index (BMI) [Ratio] 32.78 kg/m2 Lyndon Easterwood Other [employer] Other 08-05-2022 16:00-0400 Body temperature 98 [degF] Lyndon Easterwood Other [employer] Other 08-05-2022 16:00-0400 Body weight 86.64 kg Lyndon Easterwood Other [employer] Other 08-05-2022 16:00-0400 Diastolic blood pressure 76 mm[Hg] Lyndon Easterwood Other [employer] Other 08-05-2022 16:00-0400 Respiratory rate 20 /min Lyndon Easterwood Other [employer] Other 08-05-2022 16:00-0400 SaO2% (BldA) [Mass fraction] 99 % Lyndon Easterwood Other [employer] Other 08-05-2022 16:00-0400 Systolic blood pressure 122 mm[Hg] Lyndon Dalal Other [employer] Other Encounters Encounter Date Encounter Type Care [...] 07-23-2024 End: 07-23-2024 ambulatory Dami R AJITH [place] Start: 07-19-2024 End: 07-19-2024 ambulatory LELE ALEJO Not Available Start: 07-05-2024 End: 07-05-2024 ambulatory DAMI AJITH Not Available Start: 06-25-2024 End: 06-25-2024 ambulatory DAMI AJITH Not Available Start: 06-25-2024 End: 06-25-2024 ambulatory LELE ALEJO [place] Start: 06-12-2024 End: 06-12-2024 ambulatory DAMI R AJITH [facility] Start: 06-04-2024 End: 06-04-2024 ambulatory LELE ALEJO Not Available Start: 05-14-2024 End: 05-14-2024 ambulatory DAMI R AJITH [facility] Start: 05-08-2024 End: 05-08-2024 ambulatory DAMI AJITH Not Available Start: 04-09-2024 End: 04-09-2024 ambulatory DAMI AJITH Not Available Start: 04-04-2024 ambulatory Dami R AJITH [place]: [facility] Start: 03-12-2024 End: 03-12-2024 ambulatory DAMI AJITH Not Available Start: 02-24-2024 End: 02-24-2024 ambulatory DAMI AJITH Not Available Start: 12-04-2023 End: 12-04-2023 ambulatory Lyndon Joseerwood Other [employer] Other Start: 12-04-2023 Encounter by [employer] Lyndon Garciaerwood [facility] Start: 11-05-2023 End: 11-05-2023 ambulatory Lyndon Joseerwood Other [employer] Other Start: 11-05-2023 Encounter by [employer] Lyndon Garciaerwood [facility] Start: 10-25-2023 End: 10-25-2023 ambulatory Lyndon John Fallwood Facility:[facility] Start: 10-10-2023 End: 10-10-2023 ambulatory Lyndon Joseerwood Other [employer] Other Start: 10-10-2023 Telephone encounter Lyndonjessica Garciaerwood [facility] Start: 09-26-2023 End: 09-26-2023 ambulatory Lyndon Joseerwood Other [employer] Other Start: 09-26-2023 Telephone encounter Lyndon Joseerwood [facility] Start: 09-18-2023 End: 09-18-2023 ambulatory Lyndon Joseerwood Other [employer] Other Start: 09-18-2023 Telephone encounter Lyndon Joseerwood [facility] Start: 09-15-2023 End: 09-15-2023 ambulatory LYNDON JOSEERWOOD [facility] [employer] Other Start: 09-15-2023 Office outpatient visit 25 minutes Lyndon Joseerwood [facility] Start: 08-18-2023 End: 08-18-2023 ambulatory LYNDON JOSEWOOD Facility:[facility] Start: 08-05-2023 Get Medical Advice Martina Rodriguez MD, PhD Work Phone: Endocrinology Comment on above: lab orders Start: 07-22-2023 End: 07-22-2023 ambulatory Lyndon Eufemiawood Other [employer] Other Start: 07-22-2023 Telephone encounter Lyndonjessica Garciawood [facility] Start: 07-12-2023 End: 07-12-2023 ambulatory Lyndon Josewood Other [employer] Other Start: 07-12-2023 Office outpatient visit 25 minutes Lyndon Joseerwood [facility] Start: 07-12-2023 Telephone encounter Lyndon Joseerwood [facility] Start: 07-08-2023 End: 07-08-2023 ambulatory SOBEIDA THOMPSON Facility[facility] Start: 06-27-2023 End: 06-27-2023 ambulatory Lyndon Josewood Other [employer] Other Start: 06-27-2023 Telephone encounter Lyndon Joseerwood [facility] Start: 06-21-2023 End: 06-21-2023 ambulatory SOBEIDA THOMPSON Facility:[facility] Start: 06-01-2023 End: 06-01-2023 ambulatory Benjamin BAKER Facility[facility] Start: 06-01-2023 End: 06-01-2023 ambulatory Bill Kat Facility[facility] Start: 05-26-2023 End: 05-26-2023 ambulatory LYNDON EUFEMIAWOOD Facility:[facility] Start: 05-25-2023 End: 05-25-2023 ambulatory LYNDON JOSEWOOD [employer] Other Start: 05-25-2023 Office outpatient visit 15 minutes Lyndon Easterwood [facility] Start: 05-17-2023 End: 05-17-2023 ambulatory Benjamin John SAMUEL [place] Start: 05-05-2023 End: 05-05-2023 ambulatory Benjamin BAKER Facility:[facility] Start: 04-15-2023 End: 04-15-2023 ambulatory Benjamin BAKER Facility[facility] Start: 04-06-2023 End: 04-06-2023 ambulatory MARTINA RODRIGUEZ Facility:[facility] Start: 03-08-2023 End: 03-08-2023 ambulatory MARTINA RODRIGUEZ Facility:[facility] Start: 03-08-2023 End: 03-08-2023 Patient encounter procedure Martina Rodriguez MD, PhD Work Phone: Endocrinology Comment on above: Vikki's thyroidi tis (Primary Dx) Start: 02-28-2023 End: 02-28-2023 ambulatory Lyndon Joseerwood Other [employer] Other Start: 02-28-2023 Telephone encounter Lyndon Fallwood [facility] Start: 02-21-2023 End: 02-21-2023 ambulatory ACCESS CLERK Lyndon John Garciaerrick Work Phone: [facility] Work Phone: Start: 02-21-2023 End: 02-21-2023 Discharged Recurring ACCESS CLERK Lyndon Joseerwood Work Phone: [facility] [place] Work Phone: Start: 08-09-2022 End: 08-09-2022 ambulatory Lyndon Joseerwood Other [employer] Other Start: 08-09-2022 Telephone encounter Lyndon Joseerwood [facility] Start: 08-05-2022 End: 08-06-2022 Emergency department patient visit Lyndon Lopez Eufemiawood Facility:[facility] Start: 08-05-2022 End: 08-05-2022 ambulatory Lyndon Joseerwood Other [employer] Other Start: 08-05-2022 Office outpatient visit 40 minutes [facility] Procedures Date Procedure Procedure Detail Performing Clinician Start: 07-31-2024 Urnls dip stick/tabl et rgnt non-auto w/o micrscp Dami Canseco DO Work Phone: Plan of Treatment Date Care Activity Detail Author Start: 09-17-2024 End: 09-17-2024 Patient encounter procedure 09/17/2024 8:40 AM EST Routine [facility] [address] [place] [address] Dami Canseco, DO [address], [place] [id number] [facility] Start: 09-10-2024 End: 09-10-2024 Patient encounter procedure 09/10/2024 8:40 AM EST Routine [facility] [address] [place] [id number] Dami Canseco, DO [address] [place] [address] [facility] Start: 09-03-2024 End: 09-03-2024 Patient encounter procedure 09/03/2024 8:40 AM EST Routine [facility] [address] [place] [id number] Dami Canseco, DO [address] [place] [address] [facility] Start: 08-27-2024 End: 08-27-2024 Patient encounter procedure 08/27/2024 8:40 AM EDT Routine [facility] [address] [place] [phone] Dami Canseco, DO [address] [place] [address] [facility] Start: 08-14-2024 End: 08-14-2024 Patient encounter procedure 08/14/2024 8:40 AM EDT [facility] [address] [facility] [place] [id number] Dami Canseco, DO [address] [place] [address] [facility] Start: 08-06-2024 End: 08-06-2024 Professional / ancillary services management 08/06/2024 8:00 AM EDT Ancillary Procedure [facility] [address] [facility] [place] [place] [phone] [facility] Start: 07-31-2024 End: 07-31-2024 Patient encounter procedure 07/31/2024 8:50 AM EDT Routine [facility] [address] [place] [phone] Dami Canseco, DO [address] [place] [address] Ar[address] [facility] Comment on above: Arrived Start: 07-01-2024 Influenza vaccination Influenza Vacc ine (#1) [facility] Start: 08-08-2023 End: 10-08-2023 Thyrotropin [Units/volume] in Serum or Plasma TSH BLD Lab Routine Vikki's thyroiditis Expected: 08/08/2023, Expires: 10/08/2023 [facility] Work Phone: Comment on above: Expected: 08/08/2023 , Expires: 10/08/2023 Start: 08-08-2023 End: 10-08-2023 Thyroxine (T4) free [Mass/volume] in Serum or Plasma T4 FREE/FREE THYROX Lab Routine Vikki's thyroiditis Expected: 08/08/2023, Expires: 10/08/2023 [facility] Work Phone: Comment on above: Expected: 08/08/2023 , Expires: 10/08/2023 Start: 07-07-2023 Urine microalbumin profile [facility] Start: 07-01-2023 Covid-19 Vaccine () Covid-19 Vaccine () [facility] Start: 07-01-2023 Influenza vaccination Influenza Vacc ine (#1) [facility] Start: 03-31-2023 End: 05-31-2023 Thyroglobulin Ab [Units/volume] in Serum or Plasma THYROGLOBULIN AB Lab Routine Vikki's thyroiditis Expected: 03/31/2023, Expires: 05/31/2023 [facility] Work Phone: Comment on above: Expected: 03/31/2023 , Expires: 05/31/2023 Start: 03-31-2023 End: 05-31-2023 THYROID PEROXIDASE ANTIBODY BLOOD THYROID PEROXIDASE ANTIBODY BLOOD Lab Routine Vikki's thyroiditis Expected: 03/31/2023, Expires: 05/31/2023 [facility] Work Phone: Comment on above: Expected: 03/31/2023 , Expires: 05/31/2023 Start: 03-31-2023 End: 05-31-2023 Thyrotropin [Units/volume] in Serum or Plasma TSH BLD Lab Routine Vikki's thyroiditis Expected: 03/31/2023, Expires: 05/31/2023 [facility] Work Phone: Comment on above: Expected: 03/31/2023 , Expires: 05/31/2023 Start: 03-31-2023 End: 05-31-2023 Thyroxine (T4) free [Mass/volume] in Serum or Plasma T4 FREE/FREE THYROX Lab Routine Vikki's thyroiditis Expected: 03/31/2023, Expires: 05/31/2023 [facility] Work Phone: Comment on above: Expected: 03/31/2023 , Expires: 05/31/2023 Start: 03-31-2023 End: 05-31-2023 Triiodothyronine (T3) Free [Mass/volume] in Serum or Plasma T3 FREE BLD Lab Routine Vikki's thyroiditis Expected: 03/31/2023, Expires: 05/31/2023 [facility] Work Phone: Comment on above: Expected: 03/31/2023 , Expires: 05/31/2023 Start: 10-31-2022 DEPRESSION ASSESSMENT DEPRESSION ASS ESSMENT [facility] Start: 2021 PAP TESTING PAP TESTING [facility] Start: 02-02-2021 COVID-19 VACCINE (3 - Booster for Pfizer series) COVID-19 VACCINE (3 - Booster for Pfizer series) [facility] Start: 2018 CHLAMYDIA SCREENING (18-24) CHLAMYDIA SCREENING (18-24) [facility] Start: 2018 GC (GONORRHEA) SCREE MICHELLE (18-24) GC (GONORRHEA) SCREENING (18-24) [facility] Start: 2018 HEPATITIS C SCREENING HEPATITIS C SC REENING [facility] Start: 2018 HIV SCREENING HIV SCREENING [facility] Start: 2016 Meningococcal B Vacc ine: Consider Based On Risk (2 of 2 - Risk Bexsero 2-dose series) Meningococcal B Vaccine: Consider Based On Risk (2 of 2 - Risk Bexsero 2-dose series) [facility] Start: 2016 MENINGOCOCCAL B: 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 based on risk (2 of 2 - Risk Bexsero 2-dose series) MENINGOCOCCAL B: Consider based on risk (2 of 2 - Risk Bexsero 2-dose series) [facility] Start: 2014 PEDS TO ADULT TRANSI TION ANNUAL ASSESSMENT PEDS TO ADULT TRANSITION ANNUAL ASSESSMENT [facility] Start: 2012 PEDS TO ADULT TRANSI TION INITIAL DISCUSSION PEDS TO ADULT TRANSITION INITIAL DISCUSSION [facility] Immunizations Immunization Date Immunization Notes Care Provider Milady lewis 07-19-2022 influenza, injectabl e, quadrivalent, contains preservative Lyndon Dalal Other [employer] Other 07-19-2022 influenza virus vaccine, unspecified formulation Martina Rodriguez MD, PhD Work Phone: [facility] 12-08-2020 Do not use COVID-19 Pfizer 2 dose Lyndon Easterwood Other [employer] Other 11-17-2020 Do not use COVID-19 Pfizer 2 dose Lyndon Easterwood Other [employer] Other 07-31-2020 influenza, injectabl e, quadrivalent, contains preservative Lyndon Easterwood Other [employer] Other 10-18-2016 influenza, injectabl e, quadrivalent, contains preservative Martina Rodriguez MD, PhD Work Phone: [facility] 08-04-2015 influenza, injectabl e, quadrivalent, contains preservative Martina Rodriguez MD, PhD Work Phone: [facility] 04-23-2014 human papilloma viru s vaccine, quadrivalent Martina Rodriguez MD, PhD Work Phone: [facility] 09-29-2013 human papilloma viru s vaccine, quadrivalent Martina Rodriguez MD, PhD Work Phone: [facility] 07-07-2013 human papilloma viru s vaccine, quadrivalent Martina Rodriguez MD, PhD Work Phone: [facility] 07-07-2013 meningococcal polysaccharide (groups A, C, Y and W-135) diphtheria toxoid conjugate vaccine (MCV4P) Martina Rodriguez MD, PhD Work Phone: [facility] Work Phone: 07-07-2013 tetanus toxoid, redu ollie diphtheria toxoid, and acellular pertussis vaccine, adsorbed Martina Rodriguez MD, PhD Work Phone: [facility] 08-04-2009 influenza virus vaccine, unspecified formulation Martina Rodriguez MD, PhD Work Phone: [facility] 07-05-2008 hepatitis A vaccine, unspecified formulation Martina Rordiguez MD, PhD Work Phone: [facility] 09-09-2007 influenza virus vaccine, unspecified formulation Martina Rodriguez MD, PhD Work Phone: [facility] Work Phone: 06-19-2007 hepatitis A vaccine, unspecified formulation Martina Rodriguez MD, PhD Work Phone: [facility] 06-19-2007 varicella virus vaccine Parth Rodriguez MD, PhD Work Phone: [facility] 09-14-2006 influenza virus vaccine, unspecified formulation Martina Rodriguez MD, PhD Work Phone: [facility] 05-13-2006 diphtheria, tetanus toxoids and acellular pertussis vaccine Martina Rodriguez MD, PhD Work Phone: [facility] Work Phone: 05-13-2006 measles, mumps and rubella virus vaccine Martina Rodriguez MD, PhD Work Phone: [facility] Work Phone: 05-13-2006 poliovirus vaccine, inactivated Martina Rodriguez MD, PhD Work Phone: [facility] Work Phone: 05-13-2006 varicella virus vaccine Parth Rodriguez MD, PhD Work Phone: [facility] Work Phone: 07-26-2005 influenza virus vaccine, unspecified formulation Martina Rodriguez MD, PhD Work Phone: [facility] Work Phone: 07-30-2004 influenza virus vaccine, unspecified formulation Martina Rodriguez MD, PhD Work Phone: [facility] Work Phone: 06-30-2002 diphtheria, tetanus toxoids and acellular pertussis vaccine Martina Rodriguez MD, PhD Work Phone: [facility] Work Phone: 06-30-2002 poliovirus vaccine, inactivated Martina Rodriguez MD, PhD Work Phone: [facility] Work Phone: 04-04-2002 haemophilus influenz ae type b vaccine, HbOC conjugate Martina Rodriguez MD, PhD Work Phone: [facility] Work Phone: 04-04-2002 measles, mumps and rubella virus vaccine Martina Rodriguez MD, PhD Work Phone: [facility] Work Phone: 12-16-2001 hepatitis B vaccine, pediatric or pediatric/adolescent dosage Martina Rodriguez MD, PhD Work Phone: [facility] Work Phone: 12-16-2001 pneumococcal conjuga te vaccine, Shaq Rodriguez MD, PhD Work Phone: [facility] Work Phone: 09-30-2001 pneumococcal conjuga te vaccine, Shaq Rodriguez MD, PhD Work Phone: [facility] Work Phone: 06-24-2001 diphtheria, tetanus toxoids and acellular pertussis vaccine Martina Rodriguez MD, PhD Work Phone: [facility] Work Phone: 06-24-2001 haemophilus influenz ae type b vaccine, HbOC conjugate Martina Rodriguez MD, PhD Work Phone: [facility] Work Phone: 06-24-2001 pneumococcal conjuga te vaccine, Shaq valdenny Rodriguez MD, PhD Work Phone: [facility] Work Phone: 04-12-2001 diphtheria, tetanus toxoids and acellular pertussis vaccine Martina Rodriguez MD, PhD Work Phone: [facility] Work Phone: 04-12-2001 haemophilus influenz ae type b vaccine, HbOC conjugate Martina Rodriguez MD, PhD Work Phone: [facility] Work Phone: 04-12-2001 poliovirus vaccine, inactivated Martina Rodriguez MD, PhD Work Phone: [facility] Work Phone: 02-03-2001 diphtheria, tetanus toxoids and acellular pertussis vaccine Martina Rodrgiuez MD, PhD Work Phone: [facility] Work Phone: 02-03-2001 haemophilus influenz ae type b vaccine, HbOC conjugate Martina Rodriguez MD, PhD Work Phone: [facility] Work Phone: 02-03-2001 poliovirus vaccine, inactivated Martina Rodriguez MD, PhD Work Phone: [facility] Work Phone: 2000 hepatitis B vaccine, pediatric or pediatric/adolescent dosage Martina Rodriguez MD, PhD Work Phone: [facility] Work Phone: 2000 hepatitis B vaccine, pediatric or pediatric/adolescent dosage Martina Rodriguez MD, PhD Work Phone: [facility] Work Phone: Payers Date Payer Category Payer Private Health Insurance [id number] 2024 Unknown [id number] 2023 Unknown [id number] 2022 Private Health Insurance [id number] 2022 Self-pay 2020 Private Health Insurance [id number] 2020 Private Health Insurance [id number] 2000 Unknown [id number] 2.16.840.1.680057.3.579.2.727 2000 Unknown [id number] 2.16.840.1.643363.3.579.2.727 2000 Unknown [id number] 2.16.840.1.545087.3.579.2.727 2000 Unknown [id number] 2.16.840.1.935159.3.579.2.727 2000 Unknown [id number] 2.16.840.1.923626.3.579.2.727 2000 Unknown [id number] 2.16.840.1.998107.3.579.2.727 2000 Unknown [id number] 2.16.840.1.183182.3.579.2.727 2000 Unknown [id number] 2.16.840.1.302965.3.579.2.727 2000 Unknown [id number] 2.16.840.1.218812.3.579.2.727 2000 Unknown [id number] 2.16.840.1.021187.3.579.2.727 2000 Unknown [id number] 2.16.840.1.020888.3.579.2.727 2000 Unknown [id number] 2.16.840.1.995641.3.579.2.1286 2000 Unknown [id number] 2.16.840.1.409560.3.579.2.1286 2000 Unknown [id number] 2.16.840.1.560897.3.579.2.1286 2000 Unknown [id number] 2.16.840.1.666960.3.579.2.727 2000 Unknown [id number] 2.16.840.1.217359.3.579.2.727 2000 Unknown [id number] 2.16.840.1.942938.3.579.2.1259 2000 Unknown [id number] 2.16.840.1.045955.3.579.2.1259 2000 Unknown [id number] 2.16.840.1.251470.3.579.2.1259 2000 Unknown [id number] 2.16.840.1.124363.3.579.2.1259 2000 Unknown [id number] 2.16.840.1.386186.3.579.2.1259 2000 Unknown [id number] 2.16.840.1.045400.3.579.2.1259 2000 Unknown [id number] 2.16.840.1.288494.3.579.2.1259 2000 Unknown [id number] 2.16.840.1.644649.3.579.2.1259 2000 Unknown [id number] 2.16.840.1.191155.3.579.2.1259 Private Health Insurance [facility] [id number] Unknown [id number] 2.16.840.1.082030.3.579.2.531 Unknown [facility] [facility] Employees [id number] Unknown [id number] 2.16.840.1.065809.3.579.2.531 Social History Date Type Detail Facility Start: 03-08-2023 End: 07-05-2024 Sex Assigned At [facility] [employer] Other Start: 09-27-2014 End: 07-05-2024 Tobacco smoking status NHIS Never smoked tobacco [facility] History of tobacco use Passive smoker Kiran [facility] Start: 03-08-2023 Alcohol intake Not Asked [facility] Start: 2000 Sex Assigned At Not on file [facility] Start: 2000 Sex Assigned At Female F [facility] Start: 03-08-2023 End: 07-05-2024 History of Social function [facility] Start: 07-05-2024 Tobacco use and exposure Smokeless tobacco non-user [facility] Start: 07-19-2024 End: 07-31-2024 Alcoholic beverage [...] 4 mg, Oral, Every 6 hours PRN Jaiexmkx-Add-Js-FA ( 1 + IRON PO) ALLERGIES Allergies [...] Dami Canseco DO documented in this encounter [facility] 09-15-2023 Evaluation note Encounter Date Diagnosis Assessment [...] today for physical therapy to [facility]. Discussed continuation of hnqb-eua-ofpuvbf medications as needed. Take muscle relaxer as [...] in office today for physical therapy to [facility]. Discussed continuation of pnia-rcn-jcxnpth medications as needed. Take muscle relaxer as [...] that were not corrected during review process. [employer] Other 09-12-2023 Evaluation note* Encounter Date Diagnosis [...] that were not corrected during review process. [employer] Other 07-26-2023 Evaluation note* Encounter Date Diagnosis [...] that were not corrected during review process. [employer] Other 06-18-2023 NoteEchocardiology Procedure Exam Date/Time Accession # Ordering ECG Stress Exercise 04/15/2023 08:43 EDT [id number] Benjamin Baker MD CPT code 58068 Reason for Exam (ECG Stress Exercise) I95.1;Dizziness [...] Benjamin Baker MD Transcribed by: jamie Technologist: [facility]06-16-2023 Note Echocardiology Procedure Exam Date/Time Accession # Ordering Echo Transthoracic 04/15/2023 09:42 EDT [id number] Benjamin Baker MD Complete CPT code 41526 52970 Reason for Exam (Echo Transthoracic Complete) I95.9;Hypotension Report [facility] [address] [place] [address] Adult Echocardiogram Report Name: EMMY DALE Study Date: 04/15/2023 09:02 AM BP: 105/71 mmHg Patient Location: [facility] HR: 75 : 2000 Gender: Female Height: 63 in Age: 22 yrs Ethnicity: [facility] Weight: 178 lb Reason For Study: Hypotension BSA: 1.8 m2 History: No cardiac history per patient Ordering Physician: Samuel^Benjamin^John Referring Physician: Benjamin Baker Performed By: Jonelle Alvarez [facility] Interpretation Summary Ejection Fraction = 60-65%. [...] Benjamin Baker MD Transcribed by: YOVANI Technologist: [facility]05-09-2023 Note HNO ID: [id number] Author: Martina Rodriguez MD, PhD Service: ? [...] Arthritis Father in blood . was at [facility] when baby thought to be related [...] Plan: Will monitor thyroid (more content not included)...[facility] 03-08-2023 History of Present illness Narrative* [...] Arthritis Father in blood . was at [facility] when baby thought to be related [...] MD, PhD [facility] note* Encounter Date Diagnosis Assessment Notes [...] I would recommend referral to a different lace and textiles restorer. Patient does have the name of an lace and textiles restorer that she would like referred to. We will put that referral in today. Dr. Roger Kim - [facility] Endocrinology, [facility] February, Dizziness (ICD-10 - R42) Discussed her [...] that were not corrected during review process. [employer] Other 10-06-2022 Evaluation note* Encounter Date Diagnosis [...] to ER, I highly recommend she call [employer] the second she leaves our office to follow-up.She needs to let them know about her concerns.I explained to her that even though she may assume that her [employer] will not listen her , I still want her to reach out to that office and explained to them her current concerns. She wants to know what the immediate treatment would be and work-up for spinal headache and possible leak however I cannot provide her with this information as I am not [employer]. Jul, Hip pain (ICD-10 - M25.559) While [...] I did discuss with her concerns over wnji-azv-lykxauk medications during breast-feeding. Discussed recommendations currently and please bring this up to [employer] as well for further recommendations. Does not [...] I would like her to follow-up with [employer] or go to ER regarding this dizziness and we can follow-up in office after. If nothing comes from an [employer]/spinal headache/spinal leak standpoint, we can order CT [...] that were not corrected during review process. [employer] Other 11-10-2009 History of Past illness Narrative* Problem Noted Date Resolved Date Constipation 09/09/2009 08/28/2014 documented as of this encounter (statuses as of 03/09/2023) [facility] History of Past illness Narrative* Problem Noted Date Diagnosed Date Resolved Date Constipation 09/09/2009 08/28/2014 documented as of this encounter (statuses as of 08/09/2023) [facility] noteNo InformationNort Fid[employer] Writer Other Evaluation note* Diagnosis Vikki's thyroiditis- Primary Chronic lymphocytic thyroiditis documented in this encounter [facility] noteNo assessment information availableSelect [facility] Work Phone: Evaluation note* Diagnosis Vikki's thyroiditis- Primary Chronic lymphocytic thyroiditis documented in this encounter [facility] note* Diagnosis 31 weeks gestation of Third trimester state, incidental documented [facility] encounter [facility] N[facility] - Reported* Type Description Date Medical History Asthma Medical History Vasovagal syndrome- childhood (r esolved) Medical History Exercise-induced asthma Medical History Pityriasis rosea Medical History Tachycardia Medical History Vikki's thyroiditis Medical History Pre-eclampsia Surgical History [place] teeth extract 2017 Surgical History Vaginal childbirth 03/2022 Hospitalization History See surgical hx [employer] Other [facility] general Narrative - Reported* Type Description Date Medical History Exercise-induced asthma Medical History Pityriasis rosea Medical History Tachycardia Medical History Vikki's thyroiditis Medical History Asthma Medical History Pre-eclampsia Medical History Hypotension Surgical History [place] teeth extract 2017 Surgical History Vaginal childbirth 03/2022 Hospitalization History See surgical hx [employer] Other History general Narrative - Reported* Type Description Date Medical History Exercise-induced asthma Medical History Pityriasis rosea Medical History Tachycardia Medical History Vikki's thyroiditis Medical History Asthma Medical History Pre-eclampsia Medical History Hypotension Medical History GERD (gastroesophageal reflux di sease) Surgical History [place] teeth extract 2017 Surgical History Vaginal childbirth 03/2022 Surgical History EGD/colonoscopy 2012 Hospitalization History See surgical hx [employer] Other Histteo general Narrative - Reported* Type Description Date Medical History Exercise-induced asthma Medical History Pityriasis rosea Medical History Tachycardia Medical History Vikki's thyroiditis Medical History Asthma Medical History Pre-eclampsia Medical History Hypotension Medical History GERD (gastroesophageal reflux di sease) Medical History Thyromegaly Surgical History [place] teeth extract 2017 Surgical History Vaginal childbirth 03/2022 Surgical History EGD/colonoscopy 2011 Hospitalization History See surgical hx [employer] Other Hisscin general Narrative - Reported* Type Description Date Medical History Exercise-induced asthma Medical History Pityriasis rosea Medical History Tachycardia Medical History Vikki's thyroiditis Medical History Asthma Medical History Pre-eclampsia Medical History Hypotension Medical History GERD (gastroesophageal reflux di sease) Medical History Thyromegaly Medical History Other idiopathic scoliosis, thor acic region Surgical History [place] teeth extract 2017 Surgical History Vaginal childbirth 03/2022 Surgical History EGD/colonoscopy 2011 Hospitalization History See surgical hx [employer] Other Summary Purpose Family History No Family [...] (K29.01) Referral Organization [facility] Referring Provider First Name Lyndon Referring Provider Last Name Joserick Referring Provider Specialty Nurse Pract itioner Referred Organization [facility] Referred Provider Patricio Urena Referred Address [address] ,[place], [place],[address] Referred Provider Specialty Gastroentero logy Referral Priority Routine General Notes Misti Vivas 023 10:08:56 AM >Received today. [facility] request us to fill out their form and fax to them. They will review the referral and call patient to schedule them. Referral was fax. Misti Vivas 07/12/2023 01:31:38 PM >Per telephone encounter, patient wants to try [facility]. Sent P2P Reason *03/08 Dr. Hawa Kim - [facility] Endocrinology, [facility]; [employer]- please send this note with 2 previous notes Diagnosis 1 Vikki's thyroidi tis (E06.3) Referral Organization [facility] [employer] Referring Provider First Name Lyndon Referring Provider Last Name [facility] Referring Provider Specialty Nurse Pract itioner Referred Organization [facility] Referred Address [address] [place] [place], [place],[address] Referred Provider Specialty Endocrinolog y Referral Priority Routine General Notes [facility] 01:21:05 PM >Received today and referral was fax with the [facility] Form. They will review and call patient to schedule Reason *03/08 Dizzines s- TERRENCE; Please send this note with 2 previous notes Diagnosis 1 Dizziness (R42) Referral Organization [facility] [employer] Referring Provider First Name Lyndon Referring Provider Last Name [facility] Referring Provider Specialty Nurse Pract itioner Referred Organization [facility] Referred Provider Jose Dominguez Referred Address [address] [place] [place], [place],[address] Referred Provider Specialty Neurology Referral Priority Routine [...] section and content) DATE CREATED AUTHOR 08/06/2022 [facility] DATE CREATED AUTHOR AUTHOR'S ORGANIZ ATION 08/20/2023 [facility] DATE CREATED AUTHOR AUTHOR'S ORGANIZ ATION 04/06/2024 [facility] DATE CREATED AUTHOR AUTHOR'S ORGANIZ ATION 05/03/2024 [facility] DATE CREATED AUTHOR AUTHOR'S ORGANIZ ATION 05/18/2024 [facility] DATE CREATED AUTHOR AUTHOR'S ORGANIZ ATION 06/14/2024 [facility] DATE CREATED AUTHOR AUTHOR'S ORGANIZ ATION 06/26/2024 [facility] DATE CREATED AUTHOR AUTHOR'S ORGANIZ ATION 07/07/2024 [facility] DATE CREATED AUTHOR AUTHOR'S ORGANIZ ATION 07/24/2024 [facility] DATE CREATED AUTHOR AUTHOR'S ORGANIZ ATION 07/29/2024 [facility] DATE CREATED AUTHOR AUTHOR'S ORGANIZ ATION 08/01/2024 [facility] Specialists EPIC REASON FOR VISIT (unrecogniz [...] any alcohol or drug abuse patient.[facility] SystemIn the event this information is protected by the Federal Confidentiality of Alcohol and Drug Abuse Patient Records regulations: The Federal rules restrict any use of the information to criminally investigate or prosecute any alcohol or drug abuse patient.[facility] Care Teams (unrecognized sec tion and content) Emergency Care Attendant Relationship Specialty Start Date End Date Joseelham LyndonJAMES [address] [address] PCP - General Family Medicine 03/08/23 JoseLyndon lizarraga [employer] WORK[employer] [address] [address] Referring Family Medicine 03/04/23 Team Status: Active Member Role Status Dates Lyndon Dalal APRN Primary Care Provider Active Team Status: Inactive Member Role Status Dates Lyndon Dalal APRN Primary Care Provider, Attend ing Provider Active Emergency Care Attendant Relationship Specialty Start Date End Date EufemiarickDallasa JAMES [address] [address] PCP - General Family Medicine 03/08/23 Lyndon Dalal CNP [address] [address] Referring Family Medicine 03/04/23 Emergency Care Attendant Relationship Specialty Start Date End Date Ge Cloud MD [address] [phone] PCP - General Family Medicine 01/25/24 Emergency Care Attendant Relationship Specialty Start Date End Date Ge Cloud MD [address] [address] PCP - General Family Medicine 01/25/24 Goals [...] BE BASED ON THE PRIMARY CLINICAL RECORDS. [facility] [employer] [facility]. provides no warranty or guarantee of the accuracy or completeness of information in this document.
[2024-08-08 16:44] VITALS: BP 110/63; PULSE 79
== END 2024-08-08 17:12 | disposition home or self-care (01) ==
LOC: FBCO 07:05 → FBC 16:38
PROVIDERS: PCP Family Medicine; Visit Provider Obstetrics & Gynecology
DX: O99.283 Endocrine, nutritional and metabolic diseases complicating pregnancy, third trimester (principal); Z3A.32 32 weeks gestation of pregnancy
CPT/HCPCS: 59025

== ENCOUNTER 2024-08-11 06:33 | Outpatient (OUT) | payer OTHER, SELFPAY ==
--- OUTSIDE RECORDS SUMMARY | 2024-08-11 06:35 | XMS_ITS | CCD ---
Author Organization [facility] Care Team Providers Care Trim Machine Adjuster Name Role Phone Lyndon Dalal Primary Care Unavailable Juancarlos Maria Attending Unavailable Juancarlos Maria Admitting Unavailable Yoselin, Lyndon Unavailable Dallas Dalal CNPa Unavailable Lyndon Dalal CNP Primary Care Provider ANKIT Dalal Primary Care Provider ANKIT Dalal Attending Provider [phone] YOSELIN, LYNDON Primary Care Unavailable MARTINA RODRIGUEZ [...] Dami R Attending Unavailable Pedro Luis VELAZQUEZ, [place] Primary Care Provider [phone] AJITH, DAMI Attending Unavailable AJITH, DAMI Attending Unavailable AJITH, DAIM Attending Unavailable MELO, LELE Attending Unavailable AJITH, DAMI Attending Unavailable AJITH, DAMI Attending Unavailable MELO, LELE Attending Unavailable AJITH, DAMI Attending Unavailable Allergies Allergy Classification Reported Allergen(s) Allergy Type Date of Onset Reaction(s) Facility Sulfonamides (antibiotic) (1 source) Sulfonamides (Antibiotic); Translations: [sulfa drugs] Drug Allergy [facility] Repository (6 sources) Sulfonamides (Antibiotic); Translations: [SULFA (SULFONAMIDE ANTIBIOTICS)] Drug allergy (disorder) 5 [facility] (2 sources) Sulfonamide Drug allergy [place] [facility] Other (17 sources) Substance with sulfonamide structure and antibacterial mechanism of action (substance) Drug allergy [address] [facility] (3 sources) Sulfonamides (Antibiotic); Translations: [sulfa drugs] Propensity to adverse reactions (disorder) [facility] Rep[facility] Medications Current Medications Medication Drug Class(es) [...] a day for 5 days Aug, Active Mjwlyhlo-Fki-Qt-FA ( 1 + IRON PO) (3 sources) Start: 024 Wxvwcvau-Wmk-Oo-FA ( 1 + IRON PO) 01/20/2024 Active [...] by fredi th every twenty-four hours Biotin 75068 MCG 1 tablet Orally Once a day OTC Not-Taking/PRN take 1 tablet by fredi th every twenty-four hours Biotin 04051 MCG 1 tablet Orally Once a day OTC Not-Taking take 1 tablet by mouth once maria del carmen y Biotin 04307 MCG 1 tablet Orally Once a day OTC Not-Taking BIOTIN ORAL Take by mouth q 24 HR. 0 Active take 1 tablet by mouth once maria [place] carmen y Biotin 38105 MCG 1 tablet Orally Once a day [...] Comment on above: Take 1 tablet by [facility] once daily. Iodine (14 sources) Iodine [...] Probiotic OTC, daily Active lactobacillus rhamnosus gg [id number] unt oral capsule (1 source) Start: 5 End: 3 take 1 capsule by mouth once daily lactobacillus rhamnosus (CULTURELLE) 10 billion cell capsule Indications: Abdominal pain Take 1 capsule by mouth once daily. 30 capsule 2 04/30/2015 03/08/2023 Discontinued Comment on above: Take 1 capsule by [facility] once daily. Moringa (14 sources) Moringa [...] Comment on above: Take 1 capsule by [facility] once daily. pantoprazole 20 mg delayed [...] UA Negative Negative - 4(70) +++ mg/dL [facility] Blood, UA Negative Negative - 50 Juanito/mcL [facility] Clarity, UA Clear [facility] Color, UA Yellow [facility] Glucose, UA Negative Negative - 2000(110) ++++ mg/dL [facility] Interpretation and review of laboratory results Abnormal [facility] Ketones, UA Negative Negative - 160(16) ++++ mg/dL [facility] Leukocytes, UA Positive Negative - 500+++ Ken/mcL [facility] Comment on above: small Nitrite, UA Negative Negative - Positive [facility] pH, UA 6.5 5 - 9 [facility] Protein, UA Negative Negative - 2000(20) ++++ mg/dL [facility] Spec Grav, UA 1.010 1 - 1.03 [facility] Urobilinogen, UA 0.2 0.2 - 12 mg/dL [facility] CBC w/ Auto Diffon 4 Basophils/100 WBC (Bld) 0.4 % Normal 0.0-2.0 [facility] Comment on above: Performed By: #### 2 [id number] #### [facility] [address] [place] [address] Basophils/Leukocyt es Auto (Bld) [Pure # fraction] 0.0 E9/L Normal 0.0-0.2 [facility] Comment on above: Performed By: #### 2 [id number] #### [facility] [address] [place] [address] Eosinophils (Bld) [#/Vol] 0.2 E9/L Normal 0.0-0.5 [facility] Comment on above: Performed By: #### 2 162481 #### [facility] [address] [place] [address] Eosinophils/100 WBC (Bld) 2.9 % Normal 0.0-8.0 [facility] Comment on above: Performed By: #### 2 924485 #### [facility] [address] [place] [address] Erythrocyte distribution width (RBC) [Ratio] 13.6 % Normal 10.9-14.2 [facility] Comment on above: Performed By: #### 2 534795 #### [facility] [address] [place] [address] Hematocrit (Bld) [Volume fraction] 37.3 % Normal 34.0-46.0 [facility] Comment on above: Performed By: #### 2 626286 #### [facility] [address] [place] [address] Hemoglobin (Bld) [Mass/Vol] 12.8 g/dL Normal 12.0-16.0 [facility] Comment on above: Performed By: #### 2 965337 #### [facility] [address] [place] [address] Lymphocytes (Bld) [#/Vol] 1.9 E9/L Normal 1.0-4.0 [facility] Comment on above: Performed By: #### 2 694355 #### [facility] [address] [place] [address] Lymphocytes/100 WBC (Bld) 24.0 % Normal 14.0-50.0 [facility] Comment on above: Performed By: #### 2 421327 #### [facility] [address] [place] [address] MCH (RBC) [Entitic mass] 30.5 pg Normal 27.0-34.0 [facility] Comment on above: Performed By: #### 2 901201 #### [facility] [address] [place] [address] MCHC (RBC) [Mass/Vol] 34.2 g/dL Normal 31.4-36.0 [facility] Comment on above: Performed By: #### 2 878090 #### [facility] [address] [place] [address] MCV (RBC) [Entitic vol] 89.0 fL Normal 80.0-100.0 [facility] Comment on above: Performed By: #### 2 080271 #### [facility] [address] [place] [address] Monocytes (Bld) [#/Vol] 0.4 E9/L Normal 0.2-1.0 [facility] Comment on above: Performed By: #### 2 030698 #### [facility] [address] [place] [address] Neutrophils (Bld) [#/Vol] 5.5 E9/L Normal 2.0-7.5 [facility] Comment on above: Performed By: #### 2 741123 #### [facility] [address] [place] [address] Neutrophils/100 WBC (Bld) 67.8 % Normal 36.0-75.0 [facility] Comment on above: Performed By: #### 2 742403 #### [facility] [address] [place] [address] Platelet mean volume (Bld) [Entitic vol] 8.3 fL Normal 6.4-10.8 [facility] Comment on above: Performed By: #### 2 998866 #### [facility] [address] [place] [address] Platelets (Bld) [#/Vol] 267.0 E9/L Normal 150.0-500.0 [facility] Comment on above: Performed By: #### 2 716314 #### [facility] [address] [place] [address] RBC (Bld) [#/Vol] 4.2 E12/L Low 4.3-5.9 [facility] Comment on above: Performed By: #### 2 440851 #### [facility] [address] [place] [address] WBC corrected for nucl RBC Auto (Bld) [#/Vol] 8.0 E9/L Normal 4.0-11.0 [facility] Comment on above: Performed By: #### 2 170415 #### [facility] [address] [place] [address] Free T4on 07-23-2024 Free T4 [Mass/Vol] 0.57 ng/dL Low 0.58-1.64 [facility] Comment on above: Performed By: #### 2 636850 #### [facility] [address] [place] [address] Lyteson 07-23-2024 Anion gap [Moles/Vol] 12 mmol/L Normal 6-16 [facility] Comment on above: Performed By: #### 2 684232 #### [facility] [address] [place] [address] Chloride [Moles/Vol] 105 mmol/L Normal 101-111 [facility] Comment on above: Performed By: #### 2 685162 #### [facility] [address] [place] [address] CO2 [Moles/Vol] 24 mmol/L Normal 21-31 [facility] Comment on above: Performed By: #### 2 604522 #### [facility] [address] [place] [address] Potassium [Moles/Vol] 3.5 mmol/L Normal 3.5-5.3 [facility] Comment on above: Performed By: #### 2 138102 #### [facility] [address] [place] [address] Sodium [Moles/Vol] 137 mmol/L Normal 135-145 [facility] Comment on above: Performed By: #### 2 845747 #### [facility] [address] [place] [address] TSHon 07-23-2024 TSH Qn 2.26 m[IU]/L Normal 0.34-5.60 [facility] Comment on above: Performed By: #### 2 035763 #### [facility] [address] [place] [address] CMPon 06-25-2024 Albumin [Mass/Vol] 3.6 g/dL Normal 3.3-5.0 [facility] Comment on above: Performed By: #### 2 963406 #### [facility] [address] [place] [address] Albumin/Globulin (S) [Mass conc ratio] 1.3 Normal 1.1-2.2 [facility] Comment on above: Performed By: #### 2 043467 #### [facility] [address] [place] [address] ALP [Catalytic activity/Vol] 63 Int._Unit/L Normal 21-98 [facility] Comment on above: Performed By: #### 2 076429 #### [facility] [address] [place] [address] ALT No additional P-5'-P [Catalytic activity/Vol] 13 Int._Unit/L Normal 6-46 [facility] Comment on above: Performed By: #### 2 233824 #### [facility] [address] [place] [address] Anion gap [Moles/Vol] 10 mmol/L Normal 6-16 [facility] Comment on above: Performed By: #### 2 684130 #### [facility] [address] [place] [address] AST [Catalytic activity/Vol] 12 Int._Unit/L Normal 5-43 [facility] Comment on above: Performed By: #### 2 186199 #### [facility] [address] [place] [address] Bilirubin [Mass/Vol] 0.7 mg/dL Normal 0.0-1.1 [facility] Comment on above: Performed By: #### 2 749710 #### [facility] [address] [place] [address] Calcium [Mass/Vol] 8.6 mg/dL Low 8.9-11.1 [facility] Comment on above: Performed By: #### 2 361142 #### [facility] [address] [place] [address] Chloride [Moles/Vol] 104 mmol/L Normal 101-111 [facility] Comment on above: Performed By: #### 2 864769 #### [facility] [address] [place] [address] CO2 [Moles/Vol] 25 mmol/L Normal 21-31 [facility] Comment on above: Performed By: #### 2 122067 #### [facility] [address] [place] [address] Creatinine [Mass/Vol] 0.4 mg/dL Low 0.5-1.3 [facility] Comment on above: Performed By: #### 2 026722 #### [facility] [address] [place] [address] Globulin (S) [Mass/Vol] 2.8 g/dL Normal 1.4-4.0 [facility] Comment on above: Performed By: #### 2 501281 #### [facility] [address] [place] [address] Glucose [Mass/Vol] 97 mg/dL Normal 55-199 [facility] Comment on above: Performed By: #### 2 791189 #### [facility] [address] [place] [address] Potassium [Moles/Vol] 3.4 mmol/L Low 3.5-5.3 [facility] Comment on above: Performed By: #### 2 658195 #### [facility] [address] [place] [address] Protein [Mass/Vol] 6.4 g/dL Normal 6.0-7.8 [facility] Comment on above: Performed By: #### 2 796863 #### [facility] [address] [place] [address] Sodium [Moles/Vol] 136 mmol/L Normal 135-145 [facility] Comment on above: Performed By: #### 2 085256 #### [facility] [address] [place] [address] Urea nitrogen [Mass/Vol] 8 mg/dL Normal 5-21 [facility] Comment on above: Performed By: #### 2 659072 #### [facility] [address] [place] [address] Urea nitrogen/Creatinin e [Mass ratio] 20 No Units Normal 10-20 [facility] Comment on above: Performed By: #### 2 624685 #### [facility] [address] [place] [address] TSHon 06-25-2024 TSH Qn 3.63 m[IU]/L Normal 0.34-5.60 [facility] Comment on above: Performed By: #### 2 832615 #### [facility] [address] [place] [address] eGFRon 06-25-2024 eGFR 142 mL/min/1.73 m2 Normal >=59 [facility] Comment on above: Order Comment: Order added by Discern Expert. Performed By: #### 1 [id number] #### [facility] [address] [place] [address] TSHon 05-31-2024 TSH Qn 1.99 m[IU]/L Normal 0.34-5.60 [facility] Comment on above: Performed By: #### 2 114069 #### [facility] [address] [place] [address] TSHon 05-01-2024 TSH Qn 1.54 m[IU]/L Normal 0.34-5.60 [facility] Comment on above: Performed By: #### 2 293696 #### [facility] [address] [place] [address] Consent for Treatmenton Consent for Treatment [id number] F Normal [facility] Physician Orderon 04-04-2024 Physician Order [id number]#[id number] FF Normal [facility] TSHon 04-04-2024 TSH Qn 2.73 m[IU]/L Normal 0.34-5.60 [facility] Comment on above: Performed By: #### 2 499184 #### [facility] [address] [place] [address] XR Spine Cervical 4 or 5 Vie [...] mGy = . DAP = . Normal [facility] XR Spine Thoracic 3 Viewson 09-16-2023 XR [...] mGy = . DAP = . Normal [facility] Physician Orderon 09-15-2023 Physician Order [id number]#1.00T IFF Normal [facility] T4 Free SerPl-mCncon 023 Free T4 [Mass/Vol] 1.2 ng/dL Normal 0.9-1.7 [facility] Comment on above: Order Comment: Speci men Type: BLOOD SPECIMEN Ordering Facility: [facility] Address: [address] [place] [address] Performed By: #### 3 024-7, 3016-3 #### [facility] CLIA [id number] [address] STATES OF [facility] TSH SerPl-aCncon 08-18-2023 TSH Qn 2.280 m[IU]/L Normal 0.270-4.200 [facility] Comment on above: Order Comment: oRzina florez Type: BLOOD SPECIMEN Ordering Facility: [facility] Address: [address] [place] [address] Result Comment: If t he patient is , TSH reference range varies by gestational period: First Trimester (weeks 9-12): 0.180-2.990 mIU/L Second Trimester: 0.110-3.980 mIU/L Third Trimester: 0.480-4.710 mIU/L Noe Ramon et al. A Practical Approach for the Verifications and Determination of Site- and Trimester-Specific Reference Intervals for Thyroid Function tests in . Thyroid, 2019:29:3:412-420. Greogr Banegas, et al. 2017 Guidelines of the [place] Thyroid Association for the Diagnosis and Management of Thyroid Disease during and the . Thyroid, 2017:27:3:315-389. Performed By: #### 3 024-7, 3016-3 #### [facility] CLIA [id number] [address] [place] [address] [place] Consent for Treatmenton Consent for Treatment [id number]#[id number]: 127 Normal [facility] US Renalon 07-08-2023 US Renal Exam Date/Time: [...] M.D. Transcribed by: MORENO Technologist: EMILY Normal [facility] XR Abdomen 1 Viewon 07-08-20 23 XR [...] mGy = . DAP = . Normal [facility] Ambulatory Visit Summaryon 0 06-21-2023 Ambulatory Visit Summary EMMY DALE :2000 Visit Date:06/21/2023 Ambulatory Visit Instructions Your Diagnosis Urinary crystals Recurrent UTI Urethral stricture Gross hematuria Tests Performed Urnls Dip Stick Auto w/o Microscopy POC 06083 Your Care Team Attending Physician - SOBEIDA [...] will call pt. Where: [address] [place] [address] You Need to Complete the Following US Renal, *Est. 06/21/23 due within 1 months, Routine, Order for future visit, Transport Mode: Ambulatory, Reason: Other (please specify), Reason: Kidney Stones, No, Kidney stones, pp_set_radiology_subspec ialty, [facility] [place] XR Abdomen 1 View, *Est. 06/21/23 due [...] Urnls Dip Stick Auto w/o Microscopy POC 11341 (06/21/2023) Bilirubin Urine Dipstick - Negative Blood Urine Dipstick - Negative Glucose Urine Dipstick - Negative Ketones Urine Dipstick - Negative Leukocytes Urine Dipstick - Negative Nitrite Urine Dipstick - Negative Protein Urine Dipstick - Negative Specific [place] Urine Dipstick - 1.010 Urine Appearance Urine [...] ? 8 oz (237 mL) of milk, utgnegr-jxqhlynwlcce-rmh ry milk, and calcium-fortifiedfruit juice. Calcium-fortified means [...] wheat cereals. (more content not included)... Normal [facility] Patient Educationon 06-21-20 Patient Education Nephrology Dietary [...] ? 8 oz (237 mL) of milk, zpdsuod-xkngiajpwcno-hvv ry milk, and calcium-fortifiedfruit juice. Calcium-fortified means [...] Spinach (cooked), rhubarb, beets, sweet potatoes, and [place] chard. ? Peanuts. ? Potato chips, arabic fries, and baked potatoes with skin on. ? Nuts and nut products. ? Chocolate. ? If you regularly take a diuretic medicine, make sure to eat at least 1 or 2 servings of fruits or vegetables that are high in potassium each day. These include: ? Avocado. ? Banana. ? Faulk, prune, carrot, or tomato juice. ? Baked [...] fish oil, or vitamin B6. ? Take shxx-vcq-npjlwfs and prescription medicines only as told by your health care provider. These include supplements. What foods should I limit? Limit your in (more content not included)... Normal [facility] Urology Office/Clinic Noteon 06-21-2023 Urology Office/Clinic Note [...] pass. Will send CORDELIA and KUB to [facility] to see if any persistent hydro/any remaining [...] Urnls Dip Stick Auto w/o Microscopy POC 18742 4. Gross hematuria (R31.0: Gross hematuria) CORDELIA [...] When Contact Information SOBEIDA THOMPSON PA-C, URL [address] [address] Additional Instructions: will call pt. Patient Education [...] History Cystour (more content not included)... Normal [facility] Comment on above: Result Comment: Elec tronically Signed By: SOBEIDA THOMPSON PA-C\.br\Date and Time Signed: 06/21/23 12:44 EDT\.br\Electronically Co-Signed By: Laura Lou\.br\Date and Time Co-Signed: 06/21/23 12:25 EDT PAP [id number] 06-07-2023 Cytology report Cyto stain Doc (Cvx/Vag) Note Invalid Interpretation Code [facility] Comment on above: Result Comment: TEST S RESULT FLAG UNITS REF RANGE LAB Clinician Provided Cytology Information Source.............Endocervix No. of containers..01 ThinPrep Vial DIAGNOSIS: 01 NEGATIVE FOR INTRAEPITHELIAL LESION OR MALIGNANCY. Specimen adequacy: 01 Satisfactory for evaluation. Endocervical and/or squamous metaplastic cells (endocervical component) are present. Performed by: Clif Bolaños Land Conservation Specialist (ASCP) . 01 Note: Note 01 The [...] Low,>-Panic High,A-Abnormal,AA-Critical Abnormal Performed at: [address] [address] Lisa Ellington MD, Performed at: [facility] [address] [id number] MD Chandana Gonzalez Performed By: #### 3 [id number] ####[facility] [address] [place] [address] Consent for Treatmenton Consent for Treatment [id number]: 127 Normal [facility] Heart and Vascular Office/Cl inic Noteon 06-01-2023 [...] but unfortunately she was called by the weigher alloy and told that it was not working. [...] her Sy (more content not included)... Normal [facility] Comment on above: Result Comment: Elec tronically Signed By: SAMUEL VELAZQUEZ, Benjamin Lopez\.cee\Date and Time Signed: 06/01/23 14:25 EDT PAP [id number] 06-01-2023 Collection Technique BRUSH-SPATULA Normal [facility] Comment on above: Performed By: #### 3 [id number] ####[facility] [address] [place] [id number] Gynecological Body Site ENDOCERVIX Normal [facility] Comment on above: Performed By: #### 3 [id number] ####[facility] [address] [place] [address] Physician Orderon 06-01-2023 Physician Order [id number]#1.00CD :127 [facility] Physician Order [id number]#1.00CD: 127 [facility] C Urineon 05-27-2023 Bacteria identified Cx [...] Locations R1: This test was performed at: [facility], [address] [place] [address], [address] , , Normal [facility] Comment on above: Performed By: #### 2 722843 ####[facility] [address] [place] [address] T4 Free SerPl-mCncon 023 Free T4 [Mass/Vol] 1.2 ng/dL Normal 0.9-1.7 [facility] Comment on above: Order Comment: Rozina florez Type: BLOOD SPECIMEN Ordering Facility: [facility] Address: [address] [place], [place] [id number] Performed By: #### 3 024-7, 3016-3 #### [facility] CLIA [id number] [address] [facility] [place] [address] [place] TSH SerPl-aCncon 05-26-2023 TSH Qn 2.260 m[IU]/L Normal 0.270-4.200 [facility] Comment on above: Order Comment: Speci vikki Type: BLOOD SPECIMEN Ordering Facility: [facility] Address: [address] [place] [address] Result Comment: If t he patient is , TSH reference range varies by gestational period: First Trimester (weeks 9-12): 0.180-2.990 mIU/L Second Trimester: 0.110-3.980 mIU/L Third Trimester: 0.480-4.710 mIU/L Noe Ramon et al. A Practical Approach for the Verifications and Determination of Site- and Trimester-Specific Reference Intervals for Thyroid Function tests in . Thyroid, 2019:29:3:412-420. Gregor Banegas, et al. 2017 Guidelines of the [place] Thyroid Association for the Diagnosis and Management of Thyroid Disease during and the . Thyroid, 2017:27:3:315-389. Performed By: #### 3 024-7, 3016-3 #### [facility] CLIA [id number] [address] [place] [address] [place] Consent for Treatmenton 05-01 Consent for Treatment [id number]: 127 Normal [facility] Physician Orderon 05-25-2023 Physician Order [id number]#1.00CD:12 7 Normal [facility] Urinalysison 05-25-2023 Bacteria LM Ql (Urine sed) 2+ /HPF Abnormal Trace [facility] Comment on above: Performed By: #### 1 [id number] ####[facility] [address] [place] [address] Bilirubin Ql (U) Negative Normal Negative [facility] Comment on above: Performed By: #### 1 [id number] ####[facility] [address] [place] [address] Clarity (U) SL CLOUDY Abnormal Clear [facility] Comment on above: Performed By: #### 1 [id number] ####[facility] [address] [place] [address] Color (U) YELLOW Normal Yellow [facility] Comment on above: Performed By: #### 1 [id number] ####[facility] [address] [place] [address] Crystals LM Ql (Urine sed) Present Normal [facility] Comment on above: Performed By: #### 1 [id number] ####[facility] [address] [place] [address] Epithelial cells.squamous LM.HPF (Urine sed) [#/Area] 0-2 Normal 0-2 [facility] Comment on above: Performed By: #### 1 [id number] ####[facility] [address] [place] [address] Glucose Test strip (U) [Mass/Vol] Negative Normal Negative [facility] Comment on above: Performed By: #### 1 2887915 ####[facility] [address] [place] [address] Hemoglobin Ql (U) 2+ Abnormal Negative [facility] Comment on above: Performed By: #### 1 [id number] ####[address] [address] Ketones (U) [Mass/Vol] Negative Normal Negative [facility] Comment on above: Performed By: #### 1 [id number] ####[address] [address] [place].plasma/Lit hium.RBC (Bld) [Mass ratio] 0-3 Normal 0-3 [facility] Comment on above: Performed By: #### 1 [id number] ####[address] [address] Mucus Ql (Urine sed) TRACE Normal [facility] Comment on above: Performed By: #### 1 [id number] ####[facility] [address] [place] [address] Nitrite Ql (U) Positive Abnormal Negative [facility] Comment on above: Performed By: #### 1 [id number] ####[address] [address] pH (U) 6.0 [pH] Invalid Interpretation Code 5.0-9.0 [facility] Comment on above: Performed By: #### 1 [id number] ####[facility] [address] [place] [address] Protein (U) [Mass/Vol] Negative Normal Negative [facility] Comment on above: Performed By: #### 1 [id number] ####[facility] [address] [place] [address] Specific gravity (U) [Rel density] 1.010 Invalid Interpretation Code 1.005-1.030 [facility] Comment on above: Performed By: #### 1 [id number] ####[facility] [address] [place] [address] Type of Urine collection method Clean Catch Normal [facility] Comment on above: Performed By: #### 1 [id number] ####[facility] [address] [place] [address] Urobilinogen Qn (U) 0.2 {Catarino'U}/dL Normal 0.0-1.0 [facility] Comment on above: Performed By: #### 1 [id number] ####[facility] [address] [place] [address] WBC Auto Ql (U) 1+ Abnormal Negative [facility] Comment on above: Performed By: #### 1 [id number] ####[facility] [address] [place] [address] WBC LM.HPF (Urine sed) [#/Area] 26-30 Abnormal 0-5 [facility] Comment on above: Performed By: #### 1 [id number] ####[facility] [address] [place], [place] [address] Consent for Treatmenton 04-30 Consent for Treatment [id number]: 127 Normal [facility] Consent for Treatmenton Consent for Treatment [id number]: 127 Normal [facility] Heart and Vascular Office/Cl in Noteon 05-05-2023 [...] 1 month. (more content not included)... Normal [facility] Comment on above: Result Comment: Elec tronically Signed By: Samuel VELAZQUEZ, Benjamin Le.br\Date and Time Signed: 05/05/23 16:11 EDT Physician Orderon 05-05-2023 Physician Order [id number] :127 Normal [facility] Stress EKG Tracingson 2022 Stress EKG Tracings [id number]: 127 Normal [facility] Consent for Treatmenton 03-31 Consent for Treatment [id number]: 127 Normal [facility] T3Free SerPl-mCncon 04-06-20 23 Free T3 [Mass/Vol] 3.3 pg/mL Normal 2.3-4.1 [facility] Comment on above: Order Comment: Speci men Type: BLOOD SPECIMEN Ordering Facility: [facility] Address: [address] [place] [address] Performed By: #### 3 051-0, 3024-7, 3016-3 #### [facility] CLIA [id number] [address] [place] [address] [place] T4 Free SerPl-mCncon 023 Free T4 [Mass/Vol] 1.4 ng/dL Normal 0.9-1.7 [facility] Comment on above: Order Comment: Speci men Type: BLOOD SPECIMEN Ordering Facility: [facility] Address: [address] [address] Performed By: #### 3 051-0, 3024-7, 3016-3 #### [facility] CLIA [id number] [address] [place] [address] [place] THYROGLOBULIN ABon 3 Thyroglobulin Ab Qn 1.8 [IU]/mL Normal <4.0 [facility] Comment on above: Order Comment: Rozina florez Type: BLOOD SPECIMEN Ordering Facility: [facility] Address: [address] [place] [address] Result Comment: The Thyroglobulin Antibody test was performed using the [employer] Unicel DXI paramagnetic particle chemiluminescent immunoassay method. Results obtained with different assay methods or kits cannot be used interchangeably. Performed By: #### T JASON #### [facility] CLIA [id number] [address] [place] [address] OF S[place] THYROID PEROXIDASE ANTIBODY BLOODon 04-06-2023 [place] Qn 4572.0 [IU]/mL High <5.6 [facility] Comment on above: Order Comment: Rozina florez Type: BLOOD SPECIMEN Ordering Facility: [facility] Address: [address] [place] [address] Result Comment: Thyr oid Peroxidase Antibody test is used as an aid in diagnosis of autoimmune thyroid disease. Clinical correlation is required. Performed By: #### M ICRO #### [facility] CLIA [id number] [address] [place] [address] [place] TSH SerPl-aCncon 04-06-2023 TSH Qn 6.050 m[IU]/L High 0.270-4.200 [facility] Comment on above: Order Comment: Rozina florez Type: BLOOD SPECIMENOrdering Facility: [facility] Address: [address] [place] [address] Result Comment: If t he patient is , TSH reference range varies by gestational period: First Trimester (weeks 9-12): 0.180-2.990 mIU/L Second Trimester: 0.110-3.980 mIU/L Third Trimester: 0.480-4.710 mIU/L Noe Ramon et al. A Practical Approach for the Verifications and Determination of Site- and Trimester-Specific Reference Intervals for Thyroid Function tests in . Thyroid, 2019:29:3:412-420. Gregor E, et al. 2017 Guidelines of the [place] Thyroid Association for the Diagnosis and Management of Thyroid Disease during and the . Thyroid, 2017:27:3:315-389. Performed By: #### 3 051-0, 3024-7, 3016-3 ####[facility] MICHAEL [id number] [id number] [place] CNOVon 03-08-2023 CNOV Office Visit (ENDOLN ) -------- EMMY DALE ([id number]) 1 F Date Time Provider Department 03/08/23 [...] involuntary motions. (more content not included)... Normal [facility] Vital Signs Date Time Vital Sign Value Performing Clinician Facility 07-31-2024 08:55-0400 Body weight 99.34 kg Nor1 Phone: [facility] 07-31-2024 08:55-0400 Diastolic blood pressure 68 mm[Hg] Nor1 Phone: [facility] 07-31-2024 08:55-0400 Systolic blood pressure 112 mm[Hg] No Chains Work Phone: [facility] 09-15-2023 13:30-0500 Body height 162.56 cm [place] Other [facility] Other 09-15-2023 13:30-0500 Body mass index (BMI) [Ratio] 30.21 kg/m2 [place] Other [facility] Other 09-15-2023 13:30-0500 Body weight 79.83 kg [place] Other [facility] Other 09-15-2023 13:30-0500 Diastolic blood pressure 68 mm[Hg] Lyndon Easterwood Other [facility] Other 09-15-2023 13:30-0500 Respiratory rate 18 /min Lyndon Easterwood Other [facility] Other 09-15-2023 13:30-0500 SaO2% (BldA) [Mass fraction] 99 % Lyndon Easterwood Other [facility] Other 09-15-2023 13:30-0500 Systolic blood pressure 118 mm[Hg] Lyndon Easterwood Other [facility] Other 07-12-2023 09:15-0400 Body height 162.56 cm Lyndon [employer] Other [facility] Other 07-12-2023 09:15-0400 Body mass index (BMI) [Ratio] 29.86 kg/m2 Lyndon Easterwood Other [facility] Other 07-12-2023 09:15-0400 Body temperature 98.6 [degF] Lyndon Easterwood Other [facility] Other 07-12-2023 09:15-0400 Body weight 78.93 kg Lyndon Easterwood Other [facility] Other 07-12-2023 09:15-0400 Diastolic blood pressure 70 mm[Hg] Lyndon Easterwood Other [facility] Other 07-12-2023 09:15-0400 Respiratory rate 20 /min Lyndon Easterwood Other [facility] Other 07-12-2023 09:15-0400 SaO2% (BldA) [Mass fraction] 98 % Lyndon Easterwood Other [facility] Other 07-12-2023 09:15-0400 Systolic blood pressure 112 mm[Hg] Lyndon Easterwood Other [facility] Other 05-25-2023 17:30-0400 Body height 162.56 cm Lyndon Easterwood Other [facility] Other 05-25-2023 17:30-0400 Body mass index (BMI) [Ratio] 30.04 kg/m2 Lyndon Easterwood Other [facility] Other 05-25-2023 17:30-0400 Body temperature 98.2 [degF] Lyndon Easterwood Other [facility] Other 05-25-2023 17:30-0400 Body weight 79.38 kg Lyndon Easterwood Other [facility] Other 05-25-2023 17:30-0400 Diastolic blood pressure 72 mm[Hg] Lyndon Easterwood Other [facility] Other 05-25-2023 17:30-0400 Respiratory rate 20 /min Lyndon Easterwood Other [facility] Other 05-25-2023 17:30-0400 SaO2% (BldA) [Mass fraction] 99 % Lyndon Easterwood Other [facility] Other 05-25-2023 17:30-0400 Systolic blood pressure 110 mm[Hg] Lyndon Easterwood Other [facility] Other 03-08-2023 16:13-0400 Body weight 83.92 kg Martina Rodriguez MD, PhD Work Phone: [facility] 03-08-2023 16:13-0400 Diastolic blood pressure 76 mm[Hg] Martina Rodriguez MD, PhD Work Phone: [facility] 03-08-2023 16:13-0400 Systolic blood pressure 116 mm[Hg] Martina Rodriguez MD, PhD Work Phone: [facility] 08-05-2022 16:00-0400 Body height 162.56 cm Lyndon Easterwood Other [facility] Other 08-05-2022 16:00-0400 Body mass index (BMI) [Ratio] 32.78 kg/m2 Lyndon Easterwood Other [facility] Other 08-05-2022 16:00-0400 Body temperature 98 [degF] Lyndon Easterwood Other [facility] Other 08-05-2022 16:00-0400 Body weight 86.64 kg Lyndon Easterwood Other [facility] Other 08-05-2022 16:00-0400 Diastolic blood pressure 76 mm[Hg] Lyndon Easterwood Other [facility] Other 08-05-2022 16:00-0400 Respiratory rate 20 /min Lyndon Easterwood Other [facility] Other 08-05-2022 16:00-0400 SaO2% (BldA) [Mass fraction] 99 % Lyndon Easterwood Other [facility] Other 08-05-2022 16:00-0400 Systolic blood pressure 122 mm[Hg] Lyndon Dalal Other [facility] Other Encounters Encounter Date Encounter Type Care [...] 07-23-2024 End: 07-23-2024 ambulatory Dami R AJITH Facility:[facility] Start: 07-19-2024 End: 07-19-2024 ambulatory LELE ALEJO Not Available Start: 07-05-2024 End: 07-05-2024 ambulatory DAMI AJITH Not Available Start: 06-25-2024 End: 06-25-2024 ambulatory DAMI AJITH Not Available Start: 06-25-2024 End: 06-25-2024 ambulatory LELE ALEJO Facility:[facility] Start: 06-12-2024 End: 06-12-2024 ambulatory DAMI R AJITH [facility] Start: 06-04-2024 End: 06-04-2024 ambulatory LELE ALEJO Not Available Start: 05-14-2024 End: 05-14-2024 ambulatory DAMI R AJITH [facility] Start: 05-08-2024 End: 05-08-2024 ambulatory DAMI AJITH Not Available Start: 04-09-2024 End: 04-09-2024 ambulatory DAMI AJITH Not Available Start: 04-04-2024 ambulatory Dami R AJITH Facility: [facility] Start: 03-12-2024 End: 03-12-2024 ambulatory DAMI AJITH Not Available Start: 02-24-2024 End: 02-24-2024 ambulatory DAMI AJITH Not Available Start: 12-04-2023 End: 12-04-2023 ambulatory Lyndon Joseerwood Other [facility] Other Start: 12-04-2023 Encounter by Anews Lyndon Garciaerwood [facility] Start: 11-05-2023 End: 11-05-2023 ambulatory Lyndon Joseerwood Other [facility] Other Start: 11-05-2023 Encounter by Anews Lyndon Garciaerwood [facility] Start: 10-25-2023 End: 10-25-2023 ambulatory Lyndon John Fallwood Facility:[facility] Start: 10-10-2023 End: 10-10-2023 ambulatory Lyndon Joseerwood Other [facility] Other Start: 10-10-2023 Telephone encounter Lyndonjessica Garciaerwood [facility] Start: 09-26-2023 End: 09-26-2023 ambulatory Lyndon Joseerwood Other [facility] Other Start: 09-26-2023 Telephone encounter Lyndon Joseerwood [facility] Start: 09-18-2023 End: 09-18-2023 ambulatory Lyndon Joseerwood Other [facility] Other Start: 09-18-2023 Telephone encounter Lyndon Joseerwood [facility] Start: 09-15-2023 End: 09-15-2023 ambulatory LYNDON JOSEERWOOD [facility] [employer] Other Start: 09-15-2023 Office outpatient visit 25 minutes Lyndon Joseerwood [facility] Start: 08-18-2023 End: 08-18-2023 ambulatory LYNDON JOSEWOOD Facility:[facility] Start: 08-05-2023 Get Medical Advice Martina Rodriguez MD, PhD Work Phone: Endocrinology Comment on above: lab orders Start: 07-22-2023 End: 07-22-2023 ambulatory Lyndon Eufemiawood Other [facility] Other Start: 07-22-2023 Telephone encounter Lyndonjessica Garciawood [facility] Start: 07-12-2023 End: 07-12-2023 ambulatory Lyndon Josewood Other [facility] Other Start: 07-12-2023 Office outpatient visit 25 minutes Lyndon Joseerwood [facility] Start: 07-12-2023 Telephone encounter Lyndon Joseerwood [facility] Start: 07-08-2023 End: 07-08-2023 ambulatory SOBEIDA THOMPSON Facility:[facility] Start: 06-27-2023 End: 06-27-2023 ambulatory Lyndon Josewood Other [facility] Other Start: 06-27-2023 Telephone encounter Lyndon Joseerwood [facility] Start: 06-21-2023 End: 06-21-2023 ambulatory SOBEIDA THOMPSON Facility:[facility] Start: 06-01-2023 End: 06-01-2023 ambulatory Benjamin BAKER Facility:[facility] Start: 06-01-2023 End: 06-01-2023 ambulatory Bill Kat Facility:[facility] Start: 05-26-2023 End: 05-26-2023 ambulatory LYNDON EUFEMIAWOOD Facility:[facility] Start: 05-25-2023 End: 05-25-2023 ambulatory LYNDON JOSEWOOD [id number] Other Start: 05-25-2023 Office outpatient visit 15 minutes Lyndon Easterwood [facility] Start: 05-17-2023 End: 05-17-2023 ambulatory Benjamin John SAMUEL Facility:[facility] Start: 05-05-2023 End: 05-05-2023 ambulatory Benjamin BAKER Facility:[facility] Start: 04-15-2023 End: 04-15-2023 ambulatory Benjamin BAKER Facility:[facility] Start: 04-06-2023 End: 04-06-2023 ambulatory MARTINA RODRIGUEZ Facility:[facility] Start: 03-08-2023 End: 03-08-2023 ambulatory MARTINA RODRIGUEZ Facility:[facility] Start: 03-08-2023 End: 03-08-2023 Patient encounter procedure Martina Rodriguez MD, PhD Work Phone: Endocrinology Comment on above: Vikki's thyroidi tis (Primary Dx) Start: 02-28-2023 End: 02-28-2023 ambulatory Lyndon Joseerwood Other [facility] Other Start: 02-28-2023 Telephone encounter Lyndon Fallwood [facility] Start: 02-21-2023 End: 02-21-2023 ambulatory CORPORATE LAW ASSISTANT Lyndon John Garciaerrick Work Phone: [facility] Work Phone: Start: 02-21-2023 End: 02-21-2023 Discharged Recurring CORPORATE LAW ASSISTANT Lyndon Joseerwood Work Phone: [facility] [place] Work Phone: Start: 08-09-2022 End: 08-09-2022 ambulatory Lyndon Joseerwood Other [facility] Other Start: 08-09-2022 Telephone encounter Lynodn Joseerwood [facility] Start: 08-05-2022 End: 08-06-2022 Emergency department patient visit Lyndon Lopez Eufemiawood Facility:[facility] Start: 08-05-2022 End: 08-05-2022 ambulatory Lyndon Joseerwood Other [employer] Other Start: 08-05-2022 Office outpatient visit 40 minutes Lyndon FallHugh [facility] Procedures Date Procedure Procedure Detail Performing Clinician Start: 07-31-2024 Urnls dip stick/tabl et rgnt non-auto w/o micrscp Dami Canseco DO Work Phone: Plan of Treatment Date Care Activity Detail Author Start: 09-17-2024 End: 09-17-2024 Patient encounter procedure 09/17/2024 8:40 AM EST Routine [facility] [address] [place] [address] Dami Canseco, DO [address], [place] [id number] [facility] Start: 09-10-2024 End: 09-10-2024 Patient encounter procedure 09/10/2024 8:40 AM EST Routine [facility] [address] [place] [id number] Dami Canseco, DO [address] [place] [address] [facility] Start: 09-03-2024 End: 09-03-2024 Patient encounter procedure 09/03/2024 8:40 AM EST Routine [facility] [address] [place] [phone] Dami Canseco, DO [address] [place] [address] [facility] Start: 08-27-2024 End: 08-27-2024 Patient encounter procedure 08/27/2024 8:40 AM EDT Routine [facility] [address] [place] [phone] Dami Canseco, DO [address] [place] [address] [facility] Start: 08-14-2024 End: 08-14-2024 Patient encounter procedure 08/14/2024 8:40 AM EDT Routine [facility] [address] [facility] [place] [place] [phone] Dami Canseco, DO [address] [place] [address] [facility] Start: 08-06-2024 End: 08-06-2024 Professional / ancillary services management 08/06/2024 8:00 AM EDT Ancillary Procedure [facility] [address] [facility] [place] [place] [phone] [facility] Start: 07-31-2024 End: 07-31-2024 Patient encounter procedure 07/31/2024 8:50 AM EDT Routine [facility] [address] [place] [phone] Dami Canseco, DO [address] [place] [address] Arrived [facility] Comment on above: Arrived Start: 07-01-2024 Influenza vaccination Influenza Vacc ine (#1) [facility] Start: 08-08-2023 End: 10-08-2023 Thyrotropin [Units/volume] in Serum or Plasma TSH BLD Lab Routine Vikki's thyroiditis Expected: 08/08/2023, Expires: 10/08/2023 [place] Work Phone: Comment on above: Expected: 08/08/2023 , Expires: 10/08/2023 Start: 08-08-2023 End: 10-08-2023 Thyroxine (T4) free [Mass/volume] in Serum or Plasma T4 FREE/FREE THYROX Lab Routine Vikki's thyroiditis Expected: 08/08/2023, Expires: 10/08/2023 [place] Work Phone: Comment on above: Expected: 08/08/2023 , Expires: 10/08/2023 Start: 07-07-2023 Urine microalbumin profile [facility] Start: 07-01-2023 Covid-19 Vaccine () Covid-19 Vaccine () [facility] Start: 07-01-2023 Influenza vaccination Influenza Vacc ine (#1) [facility] Start: 03-31-2023 End: 05-31-2023 Thyroglobulin Ab [Units/volume] in Serum or Plasma THYROGLOBULIN AB Lab Routine Vikki's thyroiditis Expected: 03/31/2023, Expires: 05/31/2023 [place] Work Phone: Comment on above: Expected: 03/31/2023 , Expires: 05/31/2023 Start: 03-31-2023 End: 05-31-2023 THYROID PEROXIDASE ANTIBODY BLOOD THYROID PEROXIDASE ANTIBODY BLOOD Lab Routine Vikki's thyroiditis Expected: 03/31/2023, Expires: 05/31/2023 [place] Work Phone: Comment on above: Expected: 03/31/2023 , Expires: 05/31/2023 Start: 03-31-2023 End: 05-31-2023 Thyrotropin [Units/volume] in Serum or Plasma TSH BLD Lab Routine Vikki's thyroiditis Expected: 03/31/2023, Expires: 05/31/2023 [place] Work Phone: Comment on above: Expected: 03/31/2023 , Expires: 05/31/2023 Start: 03-31-2023 End: 05-31-2023 Thyroxine (T4) free [Mass/volume] in Serum or Plasma T4 FREE/FREE THYROX Lab Routine Vikki's thyroiditis Expected: 03/31/2023, Expires: 05/31/2023 [place] Work Phone: Comment on above: Expected: 03/31/2023 , Expires: 05/31/2023 Start: 03-31-2023 End: 05-31-2023 Triiodothyronine (T3) Free [Mass/volume] in Serum or Plasma T3 FREE BLD Lab Routine Vikki's thyroiditis Expected: 03/31/2023, Expires: 05/31/2023 [place] Work Phone: Comment on above: Expected: 03/31/2023 , Expires: 05/31/2023 Start: 10-31-2022 DEPRESSION ASSESSMENT DEPRESSION ASS ESSMENT [facility] Start: 2021 PAP TESTING PAP TESTING [facility] Start: 02-02-2021 COVID-19 VACCINE (3 - Booster for Pfizer series) COVID-19 VACCINE (3 - Booster for Pfizer series) [facility] Start: 2018 CHLAMYDIA SCREENING (18-24) CHLAMYDIA SCREENING (18-24) [facility] Start: 2018 GC (GONORRHEA) SCREE MICHELLE (18-24) GC (GONORRHEA) SCREENING (18-24) [facility] Start: 2018 HEPATITIS C SCREENING HEPATITIS C SC REENING [facility] Start: 2018 HIV SCREENING HIV SCREENING [facility] Start: 2016 Meningococcal B Vacc ine: Consider Based On Risk (2 of 2 - Risk Bexsero 2-dose series) Meningococcal B Vaccine: Consider Based On Risk (2 of 2 - Risk Bexsero 2-dose series) [facility] Start: 2016 MENINGOCOCCAL B: 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 based on risk (2 of 2 - Risk Bexsero 2-dose series) MENINGOCOCCAL B: Consider based on risk (2 of 2 - Risk Bexsero 2-dose series) [facility] Start: 2014 PEDS TO ADULT TRANSI TION ANNUAL ASSESSMENT PEDS TO ADULT TRANSITION ANNUAL ASSESSMENT [facility] Start: 2012 PEDS TO ADULT TRANSI TION INITIAL DISCUSSION PEDS TO ADULT TRANSITION INITIAL DISCUSSION [facility] [place] Immunizations Immunization Date Immunization Notes Care Provider Milady lewis 07-19-2022 influenza, injectabl e, quadrivalent, contains preservative Lyndon Dalal Other [facility] Other 07-19-2022 influenza virus vaccine, unspecified formulation Martina Rodriguez MD, PhD Work Phone: [facility] 12-08-2020 Do not use COVID-19 Pfizer 2 dose Lyndon Easterwood Other [facility] Other 11-17-2020 Do not use COVID-19 Pfizer 2 dose Lyndon Easterwood Other [facility] Other 07-31-2020 influenza, injectabl e, quadrivalent, contains preservative Lyndon Easterwood Other [facility] Other 10-18-2016 influenza, injectabl e, quadrivalent, contains preservative Martina Rodriguez MD, PhD Work Phone: [facility] 08-04-2015 influenza, injectabl e, quadrivalent, contains preservative Martina Rodriguez MD, PhD Work Phone: [facility] 04-23-2014 human papilloma viru s vaccine, quadrivalent Martina Rodriguez MD, PhD Work Phone: [facility] 09-29-2013 human papilloma viru s vaccine, quadrivalent Martina Rodriguez MD, PhD Work Phone: [facility] 07-07-2013 human papilloma viru s vaccine, quadrivalent Martina Rodriguez MD, PhD Work Phone: [facility] 07-07-2013 meningococcal polysaccharide (groups A, C, Y and W-135) diphtheria toxoid conjugate vaccine (MCV4P) Martina Rodriguez MD, PhD Work Phone: [facility] Work Phone: 07-07-2013 tetanus toxoid, redu ollie diphtheria toxoid, and acellular pertussis vaccine, adsorbed Martina Rodriguez MD, PhD Work Phone: [facility] 08-04-2009 influenza virus vaccine, unspecified formulation Martina Rodriguez MD, PhD Work Phone: [facility] 07-05-2008 hepatitis A vaccine, unspecified formulation Martina Rodriguez MD, PhD Work Phone: [facility] 09-09-2007 influenza virus vaccine, unspecified formulation Martina Rodriguez MD, PhD Work Phone: [facility] Work Phone: 06-19-2007 hepatitis A vaccine, unspecified formulation Martina Rodriguez MD, PhD Work Phone: [facility] 06-19-2007 varicella virus vaccine Parth Rodriguez MD, PhD Work Phone: [facility] 09-14-2006 influenza virus vaccine, unspecified formulation Martina Rodriguez MD, PhD Work Phone: [facility] 05-13-2006 diphtheria, tetanus toxoids and acellular pertussis vaccine Martina Rodriguez MD, PhD Work Phone: [facility] Work Phone: 05-13-2006 measles, mumps and rubella virus vaccine Martina Rodriguez MD, PhD Work Phone: [facility] Work Phone: 05-13-2006 poliovirus vaccine, inactivated Martina Rodriguez MD, PhD Work Phone: [facility] Work Phone: 05-13-2006 varicella virus vaccine Parth Rodriguez MD, PhD Work Phone: [facility] Work Phone: 07-26-2005 influenza virus vaccine, unspecified formulation Martina Rodriguez MD, PhD Work Phone: [facility] Work Phone: 07-30-2004 influenza virus vaccine, unspecified formulation Martina Rodriguez MD, PhD Work Phone: [facility] Work Phone: 06-30-2002 diphtheria, tetanus toxoids and acellular pertussis vaccine Martina Rodriguez MD, PhD Work Phone: [facility] Work Phone: 06-30-2002 poliovirus vaccine, inactivated Martina Rodriguez MD, PhD Work Phone: [facility] Work Phone: 04-04-2002 haemophilus influenz ae type b vaccine, HbOC conjugate Martina Rodriguez MD, PhD Work Phone: [facility] Work Phone: 04-04-2002 measles, mumps and rubella virus vaccine Martina Rodriguez MD, PhD Work Phone: [facility] Work Phone: 12-16-2001 hepatitis B vaccine, pediatric or pediatric/adolescent dosage Martina Rodriguez MD, PhD Work Phone: [facility] Work Phone: 12-16-2001 pneumococcal conjuga te vaccine, Shaq Rodriguez MD, PhD Work Phone: [facility] Work Phone: 09-30-2001 pneumococcal conjuga te vaccine, Shaq Rodriguez MD, PhD Work Phone: [facility] Work Phone: 06-24-2001 diphtheria, tetanus toxoids and acellular pertussis vaccine Martina Rodriguez MD, PhD Work Phone: [facility] Work Phone: 06-24-2001 haemophilus influenz ae type b vaccine, HbOC conjugate Martina Rodriguez MD, PhD Work Phone: [facility] Work Phone: 06-24-2001 pneumococcal conjuga te vaccine, Shaq valdenny Rodriguez MD, PhD Work Phone: [facility] Work Phone: 04-12-2001 diphtheria, tetanus toxoids and acellular pertussis vaccine Martina Rodriguez MD, PhD Work Phone: [facility] Work Phone: 04-12-2001 haemophilus influenz ae type b vaccine, HbOC conjugate Martina Rodriguez MD, PhD Work Phone: [facility] Work Phone: 04-12-2001 poliovirus vaccine, inactivated Martina Rodriguez MD, PhD Work Phone: [facility] Work Phone: 02-03-2001 diphtheria, tetanus toxoids and acellular pertussis vaccine Martina Rodriguez MD, PhD Work Phone: [facility] Work Phone: 02-03-2001 haemophilus influenz ae type b vaccine, HbOC conjugate Martina Rodriguez MD, PhD Work Phone: [facility] Work Phone: 02-03-2001 poliovirus vaccine, inactivated Martina Rodriguez MD, PhD Work Phone: [facility] Work Phone: 2000 hepatitis B vaccine, pediatric or pediatric/adolescent dosage Martina Rodriguez MD, PhD Work Phone: [facility] Work Phone: 2000 hepatitis B vaccine, pediatric or pediatric/adolescent dosage Martina Rodriguez MD, PhD Work Phone: [facility] Work Phone: Payers Date Payer Category Payer Private Health Insurance [id number] 2024 Unknown [id number] 2023 Unknown [id number] 2022 Private Health Insurance [id number] 2022 Self-pay 2020 Private Health Insurance [id number] 2020 Private Health Insurance [id number]. [id number] 2000 Unknown [id number] 2.16.840.1.837939.3.579.2.727 2000 Unknown [id number] 2.16.840.1.171340.3.579.2.727 2000 Unknown [id number] 2.16.840.1.455293.3.579.2.727 2000 Unknown [id number] 2.16.840.1.711902.3.579.2.727 2000 Unknown [id number] 2.16.840.1.378504.3.579.2.727 2000 Unknown [id number] 2.16.840.1.758729.3.579.2.727 2000 Unknown [id number] 2.16.840.1.392420.3.579.2.727 2000 Unknown [id number] 2.16.840.1.325991.3.579.2.727 2000 Unknown [id number] 2.16.840.1.646161.3.579.2.727 2000 Unknown [id number] 2.16.840.1.382571.3.579.2.727 2000 Unknown [id number] 2.16.840.1.756874.3.579.2.727 2000 Unknown [id number] 2.16.840.1.358590.3.579.2.1286 2000 Unknown [id number] 2.16.840.1.015173.3.579.2.1286 2000 Unknown [id number] 2.16.840.1.516530.3.579.2.1286 2000 Unknown [id number] 2.16.840.1.008082.3.579.2.727 2000 Unknown [id number] 2.16.840.1.619211.3.579.2.727 2000 Unknown [id number] 2.16.840.1.294859.3.579.2.1259 2000 Unknown [id number] 2.16.840.1.445512.3.579.2.1259 2000 Unknown [id number] 2.16.840.1.251016.3.579.2.1259 2000 Unknown [id number] 2.16.840.1.383995.3.579.2.1259 2000 Unknown [id number] 2.16.840.1.424869.3.579.2.1259 2000 Unknown [id number] 2.16.840.1.414424.3.579.2.1259 2000 Unknown [id number] 2.16.840.1.025337.3.579.2.1259 2000 Unknown [id number] 2.16.840.1.506089.3.579.2.1259 2000 Unknown [id number] 2.16.840.1.730980.3.579.2.1259 Private Health Insurance [facility] [id number] Unknown [id number] 2.16.840.1.656607.3.579.2.[address] [facility] Employees [id number] Unknown [id number] 2.16.840.1.357073.3.579.2.531 Social History Date Type Detail Facility Start: 03-08-2023 End: 07-05-2024 Sex Assigned At [facility] [employer] Other Start: 09-27-2014 End: 07-05-2024 Tobacco smoking status NHIS Never smoked tobacco [facility] History of tobacco use Passive smoker [facility] Start: 03-08-2023 Alcohol intake Not Asked [facility] Start: 2000 Sex Assigned At Not on file [facility] Start: 2000 Sex Assigned At Female F [facility] Start: 03-08-2023 End: 07-05-2024 History of Social function [facility] Start: 07-05-2024 Tobacco use and exposure Smokeless tobacco non-user [facility] Start: 07-19-2024 End: 07-31-2024 Alcoholic [...] 4 mg, Oral, Every 6 hours PRN Acgcrfax-Gdz-Pz-FA ( 1 + IRON PO) ALLERGIES Allergies [...] Relation Name Age of Onset Hyperlipidemia Mother Sacrlet Rashes / Skin problems Mother Scarlet Rheum [...] Dami Canseco DO documented in this encounter [facility] 09-15-2023 Evaluation note Encounter Date Diagnosis Assessment [...] today for physical therapy to [facility]. Discussed continuation of akpt-qnp-qrwaqok medications as needed. Take muscle relaxer as [...] in office today for physical therapy to [facility]. Discussed continuation of xhms-dce-owzgjep medications as needed. Take muscle relaxer as [...] that were not corrected during review process. [employer] Other 09-12-2023 Evaluation note* Encounter Date Diagnosis [...] that were not corrected during review process. [employer] Other 07-26-2023 Evaluation note* Encounter Date Diagnosis [...] that were not corrected during review process. [employer] Other 06-18-2023 NoteEchocardiology Procedure Exam Date/Time Accession # Ordering ECG Stress Exercise 04/15/2023 08:43 EDT [id number] Benjamin Baker MD CPT code 19348 Reason for Exam (ECG Stress Exercise) I95.1;Dizziness [...] Benjamin Baker MD Transcribed by: jamie Technologist: [facility]06-16-2023 Note Echocardiology Procedure Exam Date/Time Accession # Ordering Echo Transthoracic 04/15/2023 09:42 EDT [id number] Benjamin Baker MD Complete CPT code 06446 [id number] Reason for Exam (Echo Transthoracic Complete) I95.9;Hypotension Report [facility] [address] [place] [address] Adult Echocardiogram Report Name: EMMY DALE Study Date: 04/15/2023 09:02 AM BP: 105/71 mmHg Patient Location: [facility] HR: 75 : 2000 Gender: Female Height: 63 in Age: 22 yrs Ethnicity: [facility] Weight: 178 lb Reason For Study: Hypotension BSA: 1.8 m2 History: No cardiac history per patient Ordering Physician: Samuel^Benjamin^John Referring Physician: Benjamin Baker Performed By: Jonelle Alvarez [facility] Interpretation Summary Ejection Fraction = [...] MD Transcribed by: YOVANI Technologist: [facility]05-09-2023 Note HNO ID: [id number] Author: Martina Rodriguez MD, PhD Service: ? [...] dyes within last 3 months? no HPI: mEmy Dale is a 22 year old female [...] Plan: Will monitor thyroid (more content not included)...[facility] 03-08-2023 History of Present illness Narrative* [...] Martina Rodriguez MD, PhD [facility]* Encounter Date Diagnosis Assessment [...] I would recommend referral to a different triage rn. Patient does have the name of an triage rn that she would like referred to. We will put that referral in today. Dr. Roger Kim - [facility] February, Dizziness (ICD-10 - R42) Discussed [...] that were not corrected during review process. [employer] Other 10-06-2022 Evaluation note* Encounter Date Diagnosis [...] to ER, I highly recommend she call PLASTIC SURGERY TECHNICIAN the second she leaves our office to follow-up.She needs to let them know about her concerns.I explained to her that even though she may assume that her PLASTIC SURGERY TECHNICIAN will not listen her , I still want her to reach out to that office and explained to them her current concerns. She wants to know what the immediate treatment would be and work-up for spinal headache and possible leak however I cannot provide her with this information as I am not PLASTIC SURGERY TECHNICIAN. Jul, Hip pain (ICD-10 - M25.559) While [...] I did discuss with her concerns over vyzo-fpx-lqskcnl medications during breast-feeding. Discussed recommendations currently and please bring this up to PLASTIC SURGERY TECHNICIAN as well for further recommendations. Does not [...] I would like her to follow-up with PLASTIC SURGERY TECHNICIAN or go to ER regarding this dizziness and we can follow-up in office after. If nothing comes from an PLASTIC SURGERY TECHNICIAN/spinal headache/spinal leak standpoint, we can order CT [...] that were not corrected during review process. [employer] Other 11-10-2009 History of Past illness Narrative* Problem Noted Date Resolved Date Constipation 09/09/2009 08/28/2014 documented as of this encounter (statuses as of 03/09/2023) [facility]11-10-2009 History of Past illness Narrative* Problem Noted Date Diagnosed Date Resolved Date Constipation 09/09/2009 08/28/2014 documented as of this encounter (statuses as of 08/09/2023) [facility] noteNo InformationNort [employer] Other Evaluation note* Diagnosis Vikki's thyroiditis- Primary Chronic lymphocytic thyroiditis documented in this encounter [facility] noteNo assessment information [facility] Work Phone: Evaluation note* Diagnosis Vikki's thyroiditis- Primary Chronic lymphocytic thyroiditis documented in this encounter [facility] note* Diagnosis 31 weeks gestation of Third trimester state, incidental [facility] - Reported* Type Description Date Medical History Asthma Medical History Vasovagal syndrome- childhood (r esolved) Medical History Exercise-induced asthma Medical History Pityriasis rosea Medical History Tachycardia Medical History Vikki's thyroiditis Medical History Pre-eclampsia Surgical History [place] teeth extract 2017 Surgical History Vaginal childbirth 03/2022 Hospitalization History See surgical hx [facility] [facility] [employer] Other Hisrsty general Narrative - Reported* Type Description Date Medical History Exercise-induced asthma Medical History Pityriasis rosea Medical History Tachycardia Medical History Vikki's thyroiditis Medical History Asthma Medical History Pre-eclampsia Medical History Hypotension Surgical History [place] teeth extract 2017 Surgical History Vaginal childbirth 03/2022 Hospitalization History See surgical hx [facility] Other History general Narrative - Reported* Type Description Date Medical History Exercise-induced asthma Medical History Pityriasis rosea Medical History Tachycardia Medical History Vikki's thyroiditis Medical History Asthma Medical History Pre-eclampsia Medical History Hypotension Medical History GERD (gastroesophageal reflux di sease) Surgical History [place] teeth extract 2017 Surgical History Vaginal childbirth 03/2022 Surgical History EGD/colonoscopy 2012 Hospitalization History See surgical hx [facility] Other Hisosng general Narrative - Reported* Type Description Date Medical History Exercise-induced asthma Medical History Pityriasis rosea Medical History Tachycardia Medical History Vikki's thyroiditis Medical History Asthma Medical History Pre-eclampsia Medical History Hypotension Medical History GERD (gastroesophageal reflux di sease) Medical History Thyromegaly Surgical History [place] teeth extract 2017 Surgical History Vaginal childbirth 03/2022 Surgical History EGD/colonoscopy 2011 Hospitalization History See surgical hx [facility] [facility] Other Hispiub general Narrative - Reported* Type Description Date Medical History Exercise-induced asthma Medical History Pityriasis rosea Medical History Tachycardia Medical History Vikki's thyroiditis Medical History Asthma Medical History Pre-eclampsia Medical History Hypotension Medical History GERD (gastroesophageal reflux di sease) Medical History Thyromegaly Medical History Other idiopathic scoliosis, thor acic region Surgical History [place] teeth extract 2017 Surgical History Vaginal childbirth 03/2022 Surgical History EGD/colonoscopy 2011 Hospitalization History See surgical hx [facility] [facility] Other Summary Purpose Family History No Family [...] (K29.01) Referral Organization [facility] Referring Provider First Name Lyndon Referring Provider Last Name Joserick Referring Provider Specialty Nurse Pract itioner Referred Organization [facility] Referred Provider Patricio Urena Referred Address [address] [facility] [address] ,[place], [place],[address] Referred Provider Specialty Gastroentero logy Referral Priority Routine General Notes Misti Vivas 023 10:08:56 AM >Received today. [facility] request us to fill out their form and fax to them. They will review the referral and call patient to schedule them. Referral was fax. Misti Vivas 07/12/2023 01:31:38 PM >Per telephone encounter, patient wants to try [facility]. Sent P2P Reason *03/08 Dr. Hawa Kim - [facility]; [employer]- please send this note with 2 previous notes Diagnosis 1 Vikki's thyroidi tis (E06.3) Referral Organization [facility] [employer] Referring Provider First Name Lyndon Referring Provider Last Name [facility] Referring Provider Specialty Nurse Pract itioner Referred Organization [facility] Referred Address [address] [place], [place],[address] Referred Provider Specialty Endocrinolog y Referral Priority Routine [facility] 01:21:05 PM >Received today and referral was fax with the [facility] Form. They will review and call patient to schedule Reason *03/08 Dizzines s- TERRENCE; Please send this note with 2 previous notes Diagnosis 1 Dizziness (R42) Referral Organization [facility] [email or web address] Referring Provider First Name Lyndon Referring Provider Last Name [facility] Referring Provider Specialty Nurse Pract itioner Referred Organization [facility] Referred Provider Jose Dominguez Referred Address [address] [place], [place],[address] Referred Provider Specialty Neurology Referral Priority Routine [...] section and content) DATE CREATED AUTHOR 08/06/2022 [facility] DATE CREATED AUTHOR AUTHOR'S ORGANIZ ATION 08/20/2023 [facility] DATE CREATED AUTHOR AUTHOR'S ORGANIZ ATION 04/06/2024 [facility] DATE CREATED AUTHOR AUTHOR'S ORGANIZ ATION 05/03/2024 [facility] DATE CREATED AUTHOR AUTHOR'S ORGANIZ ATION 05/18/2024 [facility] DATE CREATED AUTHOR AUTHOR'S ORGANIZ ATION 06/14/2024 [facility] DATE CREATED AUTHOR AUTHOR'S ORGANIZ ATION 06/26/2024 [facility] DATE CREATED AUTHOR AUTHOR'S ORGANIZ ATION 07/07/2024 [facility] DATE CREATED AUTHOR AUTHOR'S ORGANIZ ATION 07/24/2024 [facility] DATE CREATED AUTHOR AUTHOR'S ORGANIZ ATION 07/29/2024 [facility] DATE CREATED AUTHOR AUTHOR'S ORGANIZ ATION 08/01/2024 [facility] EPIC REASON FOR VISIT (unrecogniz [...] or prosecute any alcohol or drug abuse patient.[facility] HospitalIn the event this information is protected by the Federal Confidentiality of Alcohol and Drug Abuse Patient Records regulations: The Federal rules restrict any use of the information to criminally investigate or prosecute any alcohol or drug abuse patient.[facility] Care Teams (unrecognized sec tion and content) Trim Machine Adjuster Relationship Specialty Start Date End Date Joseelham LyndonJAMES [address] [address] PCP - General Family Medicine 03/08/23 JoseLyndon lizarraga [employer] SUPER[employer] [address] [address] Referring Family Medicine 03/04/23 Team Status: Active Member Role Status Dates Lyndon Dalal APRN Primary Care Provider Active Team Status: Inactive Member Role Status Dates Lyndon Dalal APRN Primary Care Provider, Attend ing Provider Active Trim Machine Adjuster Relationship Specialty Start Date End Date EufemiarickDallasa JAMES [address] [address] PCP - General Family Medicine 03/08/23 Lyndon Dalal CNP [address] [address] Referring Family Medicine 03/04/23 Trim Machine Adjuster Relationship Specialty Start Date End Date Ge Cloud MD [address] [id number] PCP - General Family Medicine 01/25/24 Trim Machine Adjuster Relationship Specialty Start Date End Date Ge Cloud MD [address] [id number] PCP - General Family Medicine 01/25/24 Goals [...] BE BASED ON THE PRIMARY CLINICAL RECORDS. [facility] [employer] [facility]. provides no warranty or guarantee of the accuracy or completeness of information in this document.
--- NOTE | 2024-08-11 13:57 | US_ITS ---
The [address] [address] Patient Name: EMMY DALE MRN: [id number] date: 2000 Sex: F Assigned Patient Location: [facility] Current Patient Location: Accession/Order Number: [id number] Exam Date: 08/11/2024 13:59 Report Date: 08/11/2024 16:53 At the request of: LELE ALEJO Procedure: US OB BPP w non-stress US PELVIS: OB Greater than 14 weeks HISTORY: 23 year old female presents for US evaluation. TECHNIQUE: Ultrasound performed of the pelvis using static images with dempsey scale, M-mode and color doppler. This exam is performed in the emergency room setting to evaluate viability. As such, it is not protocoled to evaluate anatomy as that should be performed on an outpatient basis at the patient's [facility] office. COMPARISON: August 04, 2024 FINDINGS: Summary: Number of Fetuses: Singlefetus in cephalic position. Placenta: Anterior heart: 144 bpm. Cervix: Not well visualized due to shadowing from skull JEFF: Q1: 2.4 cm Q2: 2.1 cm Q3: 3.8 cm Q4: 3.6 cm Total JEFF: 11 cm. (Normal 8-18 cm)* Largest pocket: (less than 8 cm) BPP: movement: 2. tone: 2. fluid: 2. breathin. BPP: 8 out of 8. US/US OB BPP w non-stress IMPRESSION: 1. Viable Ge fetus IUP 2. BPP is 8/8 3. JEFF: 11.4 Electronically authenticated by: YUNIOR COOK Date: 08/11/2024 16:53
[2024-08-11 14:21] VITALS: BP 108/56; PULSE 82
== END 2024-08-11 14:50 | disposition home or self-care (01) ==
LOC: US 06:33 → FBC 13:55
PROVIDERS: PCP Family Medicine; Visit Provider Physician Assistant
DX: Z34.93 Encounter for supervision of normal pregnancy, unspecified, third trimester (principal); Z3A.33 33 weeks gestation of pregnancy
CPT/HCPCS: 76818

== ENCOUNTER 2024-08-15 07:03 | Outpatient (OUT) | payer OTHER, SELFPAY ==
--- OUTSIDE RECORDS SUMMARY | 2024-08-15 07:06 | XMS_ITS | CCD ---
Author Organization [facility] Care Team Providers Care Lunchroom Attendant Name Role Phone Lyndon Dalal Primary Care Unavailable Juancarlos Maria Attending Unavailable Juancarlos Maria Admitting Unavailable Yoselin, Lyndon Unavailable Dallas Dalal CNPa Unavailable [phone] Lyndon Dalal CNP Primary Care Provider ANKIT Dalal Primary Care Provider ANKIT Dalal Attending Provider YOSELIN, YLNDON Primary Care Unavailable MARTINA RODRIGUEZ Referring Unavailable [...] Dami R Attending Unavailable Pedro Luis VELAZQUEZ, Canova Primary Care Provider AJITH, DAMI Attending Unavailable AJITH, DAMI Attending Unavailable AJITH, DAMI Attending Unavailable MELO, LELE Attending Unavailable AJITH, DAMI Attending Unavailable AJITH, DAMI Attending Unavailable MELO, LELE Attending Unavailable AJITH, DAMI Attending Unavailable Allergies Allergy Classification Reported Allergen(s) Allergy Type Date of Onset Reaction(s) Facility Sulfonamides (antibiotic) (1 source) Sulfonamides (Antibiotic); Translations: [sulfa drugs] Drug Allergy [facility] Repository (6 sources) Sulfonamides (Antibiotic); Translations: [SULFA (SULFONAMIDE ANTIBIOTICS)] Drug allergy (disorder) 5 [facility] Repository (2 sources) Sulfonamide Drug allergy [employer] Other (17 sources) Substance with sulfonamide structure and antibacterial mechanism of action (substance) Drug allergy 5 rash [facility] (3 sources) Sulfonamides (Antibiotic); Translations: [sulfa drugs] Propensity to adverse reactions (disorder) [facility] Medications Current Medications Medication Drug Class(es) [...] a day for 5 days Aug, Active Lbgpmdzf-Quk-Tf-FA ( 1 + IRON PO) (3 sources) Start: 024 Eccqjapk-Bsk-Zj-FA ( 1 + IRON PO) 01/20/2024 Active [...] by fredi th every twenty-four hours Biotin 32055 MCG 1 tablet Orally Once a day OTC Not-Taking/PRN take 1 tablet by fredi th every twenty-four hours Biotin 36170 MCG 1 tablet Orally Once a day OTC Not-Taking take 1 tablet by mouth once maria del carmen y Biotin 42613 MCG 1 tablet Orally Once a day OTC Not-Taking BIOTIN ORAL Take by mouth q 24 HR. 0 Active take 1 tablet by mouth once [place] car[place] y Biotin 33205 MCG 1 tablet Orally Once a day [...] Comment on above: Take 1 tablet by [facility] once daily. Iodine (14 sources) Iodine [...] Probiotic OTC, daily Active lactobacillus rhamnosus gg [id number] unt oral capsule (1 source) Start: 5 End: 3 take 1 capsule by mouth once daily lactobacillus rhamnosus (CULTURELLE) 10 billion cell capsule Indications: Abdominal pain Take 1 capsule by mouth once daily. 30 capsule 2 04/30/2015 03/08/2023 Discontinued Comment on above: Take 1 capsule by [facility] once daily. Moringa (14 sources) Moringa 6000MG, [...] Comment on above: Take 1 capsule by [facility] once daily. pantoprazole 20 mg delayed release [...] UA Negative Negative - 4(70) +++ mg/dL [facility] Blood, UA Negative Negative - 50 Juanito/mcL [facility] Clarity, UA Clear [facility] Color, UA Yellow [facility] Glucose, UA Negative Negative - 2000(110) ++++ mg/dL [facility] Interpretation and review of laboratory results Abnormal [facility] Ketones, UA Negative Negative - 160(16) ++++ mg/dL [facility] Leukocytes, UA Positive Negative - 500+++ Ken/mcL [facility] Comment on above: small Nitrite, UA Negative Negative - Positive [facility] pH, UA 6.5 5 - 9 [facility] Protein, UA Negative Negative - 2000(20) ++++ mg/dL [facility] Spec Grav, UA 1.010 1 - 1.03 [facility] Urobilinogen, UA 0.2 0.2 - 12 mg/dL [facility] CBC w/ Auto Diffon 4 Basophils/100 WBC (Bld) 0.4 % Normal 0.0-2.0 [facility] Comment on above: Performed By: #### 2 [id number] #### [facility] [address] [place] [address] Basophils/Leukocyt es Auto (Bld) [Pure # fraction] 0.0 E9/L Normal 0.0-0.2 [facility] Comment on above: Performed By: #### 2 901629 #### [facility] [address] [place] [address] Eosinophils (Bld) [#/Vol] 0.2 E9/L Normal 0.0-0.5 [facility] Comment on above: Performed By: #### 2 977692 #### [facility] [address] [place] [address] Eosinophils/100 WBC (Bld) 2.9 % Normal 0.0-8.0 [facility] Comment on above: Performed By: #### 2 017560 #### [facility] [address] [place] [address] Erythrocyte distribution width (RBC) [Ratio] 13.6 % Normal 10.9-14.2 [facility] Comment on above: Performed By: #### 2 539236 #### [facility] [address] [place] [address] Hematocrit (Bld) [Volume fraction] 37.3 % Normal 34.0-46.0 [facility] Comment on above: Performed By: #### 2 519540 #### [facility] [address] [place] [address] Hemoglobin (Bld) [Mass/Vol] 12.8 g/dL Normal 12.0-16.0 [facility] Comment on above: Performed By: #### 2 341870 #### [facility] [address] [place] [address] Lymphocytes (Bld) [#/Vol] 1.9 E9/L Normal 1.0-4.0 [facility] Comment on above: Performed By: #### 2 775940 #### [facility] [address] [place] [address] Lymphocytes/100 WBC (Bld) 24.0 % Normal 14.0-50.0 [facility] Comment on above: Performed By: #### 2 723646 #### [facility] [address] [place] [address] MCH (RBC) [Entitic mass] 30.5 pg Normal 27.0-34.0 [facility] Comment on above: Performed By: #### 2 578552 #### [facility] [address] [place] [address] MCHC (RBC) [Mass/Vol] 34.2 g/dL Normal 31.4-36.0 [facility] Comment on above: Performed By: #### 2 408317 #### [facility] [address] [place] [address] MCV (RBC) [Entitic vol] 89.0 fL Normal 80.0-100.0 [facility] Comment on above: Performed By: #### 2 656523 #### [facility] [address] [place] [address] Monocytes (Bld) [#/Vol] 0.4 E9/L Normal 0.2-1.0 [facility] Comment on above: Performed By: #### 2 612670 #### [facility] [address] [place] [address] Neutrophils (Bld) [#/Vol] 5.5 E9/L Normal 2.0-7.5 [facility] Comment on above: Performed By: #### 2 515388 #### [facility] [address] [place] [address] Neutrophils/100 WBC (Bld) 67.8 % Normal 36.0-75.0 [facility] Comment on above: Performed By: #### 2 256848 #### [facility] [address] [place] [address] Platelet mean volume (Bld) [Entitic vol] 8.3 fL Normal 6.4-10.8 [facility] Comment on above: Performed By: #### 2 143926 #### [facility] [address] [place] [address] Platelets (Bld) [#/Vol] 267.0 E9/L Normal 150.0-500.0 [facility] Comment on above: Performed By: #### 2 871541 #### [facility] [address] [place] [address] RBC (Bld) [#/Vol] 4.2 E12/L Low 4.3-5.9 [facility] Comment on above: Performed By: #### 2 457636 #### [facility] [address] [place] [address] WBC corrected for nucl RBC Auto (Bld) [#/Vol] 8.0 E9/L Normal 4.0-11.0 [facility] Comment on above: Performed By: #### 2 101731 #### [facility] [address] [place] [address] Free T4on 07-23-2024 Free T4 [Mass/Vol] 0.57 ng/dL Low 0.58-1.64 [facility] Comment on above: Performed By: #### 2 301673 #### [facility] [address] [place] [address] Lyteson 07-23-2024 Anion gap [Moles/Vol] 12 mmol/L Normal 6-16 [facility] Comment on above: Performed By: #### 2 526809 #### [facility] [address] [place] [address] Chloride [Moles/Vol] 105 mmol/L Normal 101-111 [facility] Comment on above: Performed By: #### 2 497510 #### [facility] [address] [place] [address] CO2 [Moles/Vol] 24 mmol/L Normal 21-31 [facility] Comment on above: Performed By: #### 2 088087 #### [facility] [address] [place] [address] Potassium [Moles/Vol] 3.5 mmol/L Normal 3.5-5.3 [facility] Comment on above: Performed By: #### 2 722376 #### [facility] [address] [place] [address] Sodium [Moles/Vol] 137 mmol/L Normal 135-145 [facility] Comment on above: Performed By: #### 2 820997 #### [facility] [address] [place] [address] TSHon 07-23-2024 TSH Qn 2.26 m[IU]/L Normal 0.34-5.60 [facility] Comment on above: Performed By: #### 2 143992 #### [facility] [address] [place] [address] CMPon 06-25-2024 Albumin [Mass/Vol] 3.6 g/dL Normal 3.3-5.0 [facility] Comment on above: Performed By: #### 2 407806 #### [facility] [address] [place] [address] Albumin/Globulin (S) [Mass conc ratio] 1.3 Normal 1.1-2.2 [facility] Comment on above: Performed By: #### 2 675959 #### [facility] [address] [place] [address] ALP [Catalytic activity/Vol] 63 Int._Unit/L Normal 21-98 [facility] Comment on above: Performed By: #### 2 132118 #### [facility] [address] [place] [address] ALT No additional P-5'-P [Catalytic activity/Vol] 13 Int._Unit/L Normal 6-46 [facility] Comment on above: Performed By: #### 2 840476 #### [facility] [address] [place] [address] Anion gap [Moles/Vol] 10 mmol/L Normal 6-16 [facility] Comment on above: Performed By: #### 2 689196 #### [facility] [address] [place] [address] AST [Catalytic activity/Vol] 12 Int._Unit/L Normal 5-43 [facility] Comment on above: Performed By: #### 2 388813 #### [facility] [address] [place] [address] Bilirubin [Mass/Vol] 0.7 mg/dL Normal 0.0-1.1 [facility] Comment on above: Performed By: #### 2 953817 #### [facility] [address] [place] [address] Calcium [Mass/Vol] 8.6 mg/dL Low 8.9-11.1 [facility] Comment on above: Performed By: #### 2 482206 #### [facility] [address] [place] [address] Chloride [Moles/Vol] 104 mmol/L Normal 101-111 [facility] Comment on above: Performed By: #### 2 090063 #### [facility] [address] [place] [address] CO2 [Moles/Vol] 25 mmol/L Normal 21-31 [facility] Comment on above: Performed By: #### 2 533220 #### [facility] [address] [place] [address] Creatinine [Mass/Vol] 0.4 mg/dL Low 0.5-1.3 [facility] Comment on above: Performed By: #### 2 110334 #### [facility] [address] [place] [address] Globulin (S) [Mass/Vol] 2.8 g/dL Normal 1.4-4.0 [facility] Comment on above: Performed By: #### 2 912113 #### [facility] [address] [place] [address] Glucose [Mass/Vol] 97 mg/dL Normal 55-199 [facility] Comment on above: Performed By: #### 2 280530 #### [facility] [address] [place] [address] Potassium [Moles/Vol] 3.4 mmol/L Low 3.5-5.3 [facility] Comment on above: Performed By: #### 2 850945 #### [facility] [address] [place] [address] Protein [Mass/Vol] 6.4 g/dL Normal 6.0-7.8 [facility] Comment on above: Performed By: #### 2 308357 #### [facility] [address] [place] [address] Sodium [Moles/Vol] 136 mmol/L Normal 135-145 [facility] Comment on above: Performed By: #### 2 210841 #### [facility] [address] [place] [address] Urea nitrogen [Mass/Vol] 8 mg/dL Normal 5-21 [facility] Comment on above: Performed By: #### 2 236459 #### [facility] [address] [place] [address] Urea nitrogen/Creatinin e [Mass ratio] 20 No Units Normal 10-20 [facility] Comment on above: Performed By: #### 2 092343 #### [facility] [address] [place] [address] TSHon 06-25-2024 TSH Qn 3.63 m[IU]/L Normal 0.34-5.60 [facility] Comment on above: Performed By: #### 2 827073 #### [facility] [address] [place] [address] eGFRon 06-25-2024 eGFR 142 mL/min/1.73 m2 Normal >=59 [facility] Comment on above: Order Comment: Order added by Discern Expert. Performed By: #### 1 2473428 #### [facility] [address] [place] [address] TSHon 05-31-2024 TSH Qn 1.99 m[IU]/L Normal 0.34-5.60 [facility] Comment on above: Performed By: #### 2 782188 #### [facility] [address] [place] [address] TSHon 05-01-2024 TSH Qn 1.54 m[IU]/L Normal 0.34-5.60 [facility] Comment on above: Performed By: #### 2 228086 #### [facility] [address] [place] [address] Consent for Treatmenton Consent for Treatment [id number] F Normal [facility] Physician Orderon 04-04-2024 Physician Order [id number]#1.00TI FF Normal [facility] TSHon 04-04-2024 TSH Qn 2.73 m[IU]/L Normal 0.34-5.60 [facility] Comment on above: Performed By: #### 2 657240 #### [facility] [address] [place] [address] XR Spine Cervical 4 or 5 Vie [...] mGy = . DAP = . Normal [facility] XR Spine Thoracic 3 Viewson 09-16-2023 XR [...] mGy = . DAP = . Normal [facility] Physician Orderon 09-15-2023 Physician Order [id number]#1.00T IFF Normal [facility] T4 Free SerPl-mCncon 023 Free T4 [Mass/Vol] 1.2 ng/dL Normal 0.9-1.7 [facility] Comment on above: Order Comment: Speci men Type: BLOOD SPECIMEN Ordering Facility: [facility] Address: [address] [place] [address] Performed By: #### 3 024-7, 3016-3 #### [facility] CLIA [id number] [address] STATES OF [facility] TSH SerPl-aCncon 08-18-2023 TSH Qn 2.280 m[IU]/L Normal 0.270-4.200 [facility] Comment on above: Order Comment: Rozina florez Type: BLOOD SPECIMEN Ordering Facility: [facility] Address: [address] [place] [address] Result Comment: If t he patient is , TSH reference range varies by gestational period: First Trimester (weeks 9-12): 0.180-2.990 mIU/L Second Trimester: 0.110-3.980 mIU/L Third Trimester: 0.480-4.710 mIU/L Noe Ramon et al. A Practical Approach for the Verifications and Determination of Site- and Trimester-Specific Reference Intervals for Thyroid Function tests in . Thyroid, 2019:29:3:412-420. Gregor Banegas, et al. 2017 Guidelines of the [place] Thy[employer] Association for the Diagnosis and Management of Thyroid Disease during and the . Thyroid, 2017:27:3:315-389. Performed By: #### 3 024-7, 3016-3 #### [facility] CLIA [id number] [address] [place] [address] [place] Consent for Treatmenton Consent for Treatment [id number]#1.00CD: 127 Normal [facility] US Renalon 07-08-2023 US Renal Exam Date/Time: [...] M.D. Transcribed by: MORENO Technologist: EMILY Normal [facility] XR Abdomen 1 Viewon 07-08-20 23 XR [...] mGy = . DAP = . Normal [facility] Ambulatory Visit Summaryon 0 06-21-2023 Ambulatory Visit Summary EMMY DALE :2000 Visit Date:06/21/2023 Ambulatory Visit Instructions Your Diagnosis Urinary crystals Recurrent UTI Urethral stricture Gross hematuria Tests Performed Urnls Dip Stick Auto w/o Microscopy POC 23437 Your Care Team Attending Physician - SOBEIDA [...] will call pt. Where: [address] [place] [address] You Need to Complete the Following US Renal, *Est. 06/21/23 due within 1 months, Routine, Order for future visit, Transport Mode: Ambulatory, Reason: Other (please specify), Reason: Kidney Stones, No, Kidney stones, pp_set_radiology_subspec ialty, [facility] [place] XR Abdomen 1 View, *Est. 06/21/23 due [...] Urnls Dip Stick Auto w/o Microscopy POC 47608 (06/21/2023) Bilirubin Urine Dipstick - Negative Blood Urine Dipstick - Negative Glucose Urine Dipstick - Negative Ketones Urine Dipstick - Negative Leukocytes Urine Dipstick - Negative Nitrite Urine Dipstick - Negative Protein Urine Dipstick - Negative Specific [place] Urine Dipstick - 1.010 Urine Appearance Urine [...] ? 8 oz (237 mL) of milk, hkwmokz-diewyaslubvz-fqg ry milk, and calcium-fortifiedfruit juice. Calcium-fortified means [...] wheat cereals. (more content not included)... Normal [facility] Patient Educationon 06-21-20 Patient Education Nephrology Dietary [...] ? 8 oz (237 mL) of milk, ismqloy-gyllblgayvxo-mgo ry milk, and calcium-fortifiedfruit juice. Calcium-fortified means [...] Spinach (cooked), rhubarb, beets, sweet potatoes, and Italian chard. ? Peanuts. ? Potato chips, belarusian fries, and baked potatoes with skin on. ? Nuts and nut products. ? Chocolate. ? If you regularly take a diuretic medicine, make sure to eat at least 1 or 2 servings of fruits or vegetables that are high in potassium each day. These include: ? Avocado. ? Banana. ? [place], prune, carrot, or tomato juice. ? Baked [...] fish oil, or vitamin B6. ? Take qsod-oqn-metpirq and prescription medicines only as told by your health care provider. These include supplements. What foods should I limit? Limit your in (more content not included)... Normal [facility] Urology Office/Clinic Noteon 06-21-2023 Urology Office/Clinic Note [...] pass. Will [place] CORDELIA [place]UB [place] [facility] [place] if any persistent hydro/any remaining [...] Urnls Dip Stick Auto w/o Microscopy POC 91746 4. Gross hematuria (R31.0: Gross hematuria) CORDELIA [...] When Contact Information SOBEIDA THOMPSON PA-C, URL [address] [place] [address] Additional Instructions: will call pt. Patient Education Dietary Guidelines to Help Prevent Kidney Stones I, Laura Lou, personally scribed for Sobeida hTompson PA-C on 06/21/2023 12:25:11. . Documentation recorded [...] History Cystour (more content not included)... Normal [facility] Comment on above: Result Comment: Elec tronically Signed By: SOBEIDA THOMPSON PA-C\.br\Date and Time Signed: 06/21/23 12:44 EDT\.br\Electronically Co-Signed By: Laura Lou\.br\Date and Time Co-Signed: 06/21/23 12:25 EDT PAP [id number] 06-07-2023 Cytology report Cyto stain Doc (Cvx/Vag) Note Invalid Interpretation Code [facility] Comment on above: Result Comment: TEST S RESULT FLAG UNITS REF RANGE LAB Clinician Provided Cytology Information Source.............[employer] No. of containers..01 ThinPrep Vial DIAGNOSIS: 01 NEGATIVE FOR INTRAEPITHELIAL LESION OR MALIGNANCY. Specimen adequacy: 01 Satisfactory for evaluation. Endocervical and/or squamous metaplastic cells (endocervical component) are present. Performed by: Clif Bolaños Mother Helper (ASCP) . 01 Note: Note 01 [...] High,A-Abnormal,AA-Critical Abnormal Performed at: [address] [facility] [address] Lisa Ellington MD, Performed at: [facility] [address] [id number] MD Chandana Gonzalez Performed By: #### 3 [id number] ####[facility] [address] [place] [address] Consent for Treatmenton Consent for Treatment [id number]#1.00CD: 127 Normal [facility] Office/Cl inic Noteon 06-01-2023 [...] but unfortunately she was called by the air support control officer and told that it was not [...] her Sy (more content not included)... Normal [facility] Comment on above: Result Comment: Elec tronically Signed By: SAMUEL VELAZQUEZ, Benjamin Lopez\.cee\Date and Time Signed: 06/01/23 14:25 EDT PAP [id number] 06-01-2023 Collection Technique BRUSH-SPATULA Normal [facility] Comment on above: Performed By: #### 3 [id number] ####[facility] [address] [place] 27[address] Gynecological Body Site ENDOCERVIX Normal [facility] Comment on above: Performed By: #### 3 [id number] ####[facility] [address] [place] [address] Physician Orderon 06-01-2023 Physician Order [id number]#1.00CD :127 [facility] Physician Order [id number]#1.00CD: 127 [facility] C Urineon 05-27-2023 Bacteria identified [...] Locations R1: This test was performed at: [facility], [address] [place] [address], [address] , , Normal [facility] Comment on above: Performed By: #### 2 116934 ####[facility] [address] [place] [address] T4 Free SerPl-mCncon 023 Free T4 [Mass/Vol] 1.2 ng/dL Normal 0.9-1.7 [facility] Comment on above: Order Comment: Rozina florez Type: BLOOD SPECIMEN Ordering Facility[facility] Address: [address] [place], [place] [address] Performed By: #### 3 024-7, 3016-3 #### [facility] CLIA [id number] [address] [facility] [place] [address] [place] TSH SerPl-aCncon 05-26-2023 TSH Qn 2.260 m[IU]/L Normal 0.270-4.200 [facility] Comment on above: Order Comment: Speci vikki Type: BLOOD SPECIMEN [facility]ing [facility] Address: [address] [place] [address] Result Comment: If t he patient is , TSH reference range varies by gestational period: First Trimester (weeks 9-12): 0.180-2.990 mIU/L Second Trimester: 0.110-3.980 mIU/L Third Trimester: 0.480-4.710 mIU/L Noe Ramon et al. A Practical Approach for the Verifications and Determination of Site- and Trimester-Specific Reference Intervals for Thyroid Function tests in . Thyroid, 2019:29:3:412-420. Gregor Banegas, et al. 2017 Guidelines of the [place] Thyroid Association for the Diagnosis and Management of Thyroid Disease during and the . Thyroid, 2017:27:3:315-389. Performed By: #### 3 024-7, 3016-3 #### [facility] CLIA [id number] [address] [place] [address] [place] Consent for Treatmenton 05-01 Consent for Treatment [id number]: 127 Normal [facility] Physician Orderon 05-25-2023 Physician Order [id number]#1.00CD:12 7 Normal [facility] Urinalysison 05-25-2023 Bacteria LM Ql (Urine sed) 2+ /HPF Abnormal Trace [facility] Comment on above: Performed By: #### 1 [id number] ####[facility] [address] [place] [address] Bilirubin Ql (U) Negative Normal Negative [facility] Comment on above: Performed By: #### 1 2889769 ####[facility] [address] [place] [address] Clarity (U) SL CLOUDY Abnormal Clear [facility] Comment on above: Performed By: #### 1 [id number] ####[facility] [address] [place] [address] Color (U) YELLOW Normal Yellow [facility] Comment on above: Performed By: #### 1 3952845 ####[facility] [address] [place] [address] Crystals LM Ql (Urine sed) Present Normal [facility] Comment on above: Performed By: #### 1 9907736 ####[facility] [address] [place] [address] Epithelial cells.squamous LM.HPF (Urine sed) [#/Area] 0-2 Normal 0-2 [facility] Comment on above: Performed By: #### 1 5547566 ####[facility] [address] [place] [address] Glucose Test strip (U) [Mass/Vol] Negative Normal Negative [facility] Comment on above: Performed By: #### 1 2402536 ####[facility] [address] [place] [address] Hemoglobin Ql (U) 2+ Abnormal Negative [facility] Comment on above: Performed By: #### 1 1256776 ####[address] [address] Ketones (U) [Mass/Vol] Negative Normal Negative [facility] Comment on above: Performed By: #### 1 2079855 ####[address] [address] [place].plasma/Lit hium.RBC (Bld) [Mass ratio] 0-3 Normal 0-3 [facility] Comment on above: Performed By: #### 1 [id number] ####[address] [address] Mucus Ql (Urine sed) TRACE Normal [facility] Comment on above: Performed By: #### 1 6307871 ####[facility] [address] [place] [address] Nitrite Ql (U) Positive Abnormal Negative [facility] Comment on above: Performed By: #### 1 0298863 ####[address] [address] pH (U) 6.0 [pH] Invalid Interpretation Code 5.0-9.0 [facility] Comment on above: Performed By: #### 1 6211248 ####[facility] [address] [place] [address] Protein (U) [Mass/Vol] Negative Normal Negative [facility] Comment on above: Performed By: #### 1 7620387 ####[facility] [address] [place] [address] Specific gravity (U) [Rel density] 1.010 Invalid Interpretation Code 1.005-1.030 [facility] Comment on above: Performed By: #### 1 [id number] ####[facility] [address] [place] [address] Type of Urine collection method Clean Catch Normal [facility] Comment on above: Performed By: #### 1 [id number] ####[facility] [address] [place] [address] Urobilinogen Qn (U) 0.2 {Catarino'U}/dL Normal 0.0-1.0 [facility] Comment on above: Performed By: #### 1 [id number] ####[facility] [address] [place] [address] WBC Auto Ql (U) 1+ Abnormal Negative [facility] Comment on above: Performed By: #### 1 [id number] ####[facility] [address] [place] [address] WBC LM.HPF (Urine sed) [#/Area] 26-30 Abnormal 0-5 [facility] Comment on above: Performed By: #### 1 [id number] ####[facility] [address] [place], [place] [id number] Consent for Treatmenton 04-30 Consent for Treatment [id number]: 127 Normal [facility] Consent for Treatmenton Consent for Treatment [id number]: 127 Normal [facility] Office/Cl in Noteon 05-05-2023 [...] 1 month. (more content not included)... Normal [facility] Comment on above: Result Comment: Elec tronically Signed By: Samuel VELAZQUEZ, Benjamin Le.br\Date and Time Signed: 05/05/23 16:11 EDT Physician Orderon 05-05-2023 Physician Order [id number] :127 Normal [facility] Stress EKG Tracingson 2022 Stress EKG Tracings [id number]: 127 Normal [facility] Consent for Treatmenton 03-31 Consent for Treatment [id number]: 127 Normal [facility] T3Free SerPl-mCncon 04-06-20 23 Free T3 [Mass/Vol] 3.3 pg/mL Normal 2.3-4.1 [facility] Comment on above: Order Comment: Speci men Type: BLOOD SPECIMEN Ordering Facility: [facility] Address: [address] [place] [address] Performed By: #### 3 051-0, 3024-7, 3016-3 #### [facility] CLIA [id number] [address] [place] [address] [place] T4 Free SerPl-mCncon 023 Free T4 [Mass/Vol] 1.4 ng/dL Normal 0.9-1.7 [facility] Comment on above: Order Comment: Speci men Type: BLOOD SPECIMEN Ordering Facility: [facility] Address: [address] [address] Performed By: #### 3 051-0, 3024-7, 3016-3 #### [facility] CLIA [id number] [address] [place] [address] [place] THYROGLOBULIN ABon 3 Thyroglobulin Ab Qn 1.8 [IU]/mL Normal <4.0 [facility] Comment on above: Order Comment: Rozina florez Type: BLOOD SPECIMEN Ordering Facility: [facility] Address: [address] [place] [address] Result Comment: The Thyroglobulin Antibody test was performed using the [employer] Unicel DXI paramagnetic particle chemiluminescent immunoassay method. Results obtained with different assay methods or kits cannot be used interchangeably. Performed By: #### T JASON #### [facility] CLIA [id number] [address] [place] [address] OF SID THYROID PEROXIDASE ANTIBODY BLOODon 04-06-2023 [place] Ab Qn 4572.0 [IU]/mL High <5.6 [facility] Comment on above: Order Comment: Rozina florez Type: BLOOD SPECIMEN Ordering Facility: [facility] Address: [address] [place] [address] Result Comment: Thyr oid Peroxidase Antibody test is used as an aid in diagnosis of autoimmune thyroid disease. Clinical correlation is required. Performed By: #### M ICRO #### [facility] CLIA [id number] [address] [place] [address] [place] TSH SerPl-aCncon 04-06-2023 TSH Qn 6.050 m[IU]/L High 0.270-4.200 [facility] Comment on above: Order Comment: Rozina florez Type: BLOOD SPECIMENOrdering Facility: [facility] Address: [address] [place] [address] Result Comment: If t he patient is , TSH reference range varies by gestational period: First Trimester (weeks 9-12): 0.180-2.990 mIU/L Second Trimester: 0.110-3.980 mIU/L Third Trimester: 0.480-4.710 mIU/L Noe Ramon et al. A Practical Approach for the Verifications and Determination of Site- and Trimester-Specific Reference Intervals for Thyroid Function tests in . Thyroid, 2019:29:3:412-420. Gregor E, et al. 2017 Guidelines of the [place] Thyroid [employer] for the Diagnosis and Management of Thyroid Disease during and the . Thyroid, 2017:27:3:315-389. Performed By: #### 3 051-0, 3024-7, 3016-3 ####[facility] MICHAEL [id number] [place] [id number] [place] CNOVon 03-08-2023 CNOV Office Visit (ENDOLN ) -------- EMMY DALE ([id number]) 1 F Date Time Provider Department 03/08/23 [...] Father in blood . was at [facility] when baby thought to be related [...] involuntary motions. (more content not included)... Normal [facility] Vital Signs Date Time Vital Sign Value Performing Clinician Facility 07-31-2024 08:55-0400 Body weight 99.34 kg [employer] Phone: [facility] 07-31-2024 08:55-0400 Diastolic blood pressure 68 mm[Hg] [employer] Phone: [facility] 07-31-2024 08:55-0400 Systolic blood pressure 112 mm[Hg] [employer] Work Phone: [facility] 09-15-2023 13:30-0500 Body height 162.56 cm [employer] Other [facility] Other 09-15-2023 13:30-0500 Body mass index (BMI) [Ratio] 30.21 kg/m2 [employer] Other [facility] Other 09-15-2023 13:30-0500 Body weight 79.83 kg [employer] Other [employer] Other 09-15-2023 13:30-0500 Diastolic blood pressure 68 mm[Hg] Lyndon Easterwood Other [facility] Other 09-15-2023 13:30-0500 Respiratory rate 18 /min Lyndon Easterwood Other [employer] Other 09-15-2023 13:30-0500 SaO2% (BldA) [Mass fraction] 99 % Lyndon Easterwood Other [employer] Other 09-15-2023 13:30-0500 Systolic blood pressure 118 mm[Hg] Lyndon Easterwood Other [facility] Other 07-12-2023 09:15-0400 Body height 162.56 cm Lyndon [employer] Other [employer] Other 07-12-2023 09:15-0400 Body mass index (BMI) [Ratio] 29.86 kg/m2 Lyndon Easterwood Other [facility] Other 07-12-2023 09:15-0400 Body temperature 98.6 [degF] Lyndon Easterwood Other [facility] Other 07-12-2023 09:15-0400 Body weight 78.93 kg Lyndon Easterwood Other [employer] Other 07-12-2023 09:15-0400 Diastolic blood pressure 70 mm[Hg] Lyndon Easterwood Other [employer] Other 07-12-2023 09:15-0400 Respiratory rate 20 /min Lyndon Easterwood Other [employer] Other 07-12-2023 09:15-0400 SaO2% (BldA) [Mass fraction] 98 % Lyndon Easterwood Other [employer] Other 07-12-2023 09:15-0400 Systolic blood pressure 112 mm[Hg] Lyndon Easterwood Other [employer] Other 05-25-2023 17:30-0400 Body height 162.56 cm Lyndon Easterwood Other [employer] Other 05-25-2023 17:30-0400 Body mass index (BMI) [Ratio] 30.04 kg/m2 Lyndon Easterwood Other [employer] Other 05-25-2023 17:30-0400 Body temperature 98.2 [degF] Lyndon Easterwood Other [employer] Other 05-25-2023 17:30-0400 Body weight 79.38 kg Lyndon Easterwood Other [facility] Other 05-25-2023 17:30-0400 Diastolic blood pressure 72 mm[Hg] Lyndon Easterwood Other [facility] Other 05-25-2023 17:30-0400 Respiratory rate 20 /min Lyndon Easterwood Other [facility] Other 05-25-2023 17:30-0400 SaO2% (BldA) [Mass fraction] 99 % Lyndon Easterwood Other [employer] Other 05-25-2023 17:30-0400 Systolic blood pressure 110 mm[Hg] Lyndon Easterwood Other [employer] Other 03-08-2023 16:13-0400 Body weight 83.92 kg Martina Rodriguez MD, PhD Work Phone: [facility] 03-08-2023 16:13-0400 Diastolic blood pressure 76 mm[Hg] Martina Rodriguez MD, PhD Work Phone: [facility] 03-08-2023 16:13-0400 Systolic blood pressure 116 mm[Hg] Martina Rodriguez MD, PhD Work Phone: [facility] 08-05-2022 16:00-0400 Body height 162.56 cm Lyndon Easterwood Other [employer] Other 08-05-2022 16:00-0400 Body mass index (BMI) [Ratio] 32.78 kg/m2 Lyndon Easterwood Other [employer] Other 08-05-2022 16:00-0400 Body temperature 98 [degF] Lyndon Easterwood Other [employer] Other 08-05-2022 16:00-0400 Body weight 86.64 kg Lyndon Easterwood Other [employer] Other 08-05-2022 16:00-0400 Diastolic blood pressure 76 mm[Hg] Lyndon Easterwood Other [employer] Other 08-05-2022 16:00-0400 Respiratory rate 20 /min Lyndon Easterwood Other [employer] Other 08-05-2022 16:00-0400 SaO2% (BldA) [Mass fraction] 99 % Lyndon Easterwood Other [employer] Other 08-05-2022 16:00-0400 Systolic blood pressure 122 mm[Hg] Lyndon Dalal Other [employer] Other Encounters Encounter Date Encounter Type Care [...] 07-23-2024 End: 07-23-2024 ambulatory Dami R AJITH [place] Start: 07-19-2024 End: 07-19-2024 ambulatory LELE ALEJO Not Available Start: 07-05-2024 End: 07-05-2024 ambulatory DAMI AJITH Not Available Start: 06-25-2024 End: 06-25-2024 ambulatory DAMI AJITH Not Available Start: 06-25-2024 End: 06-25-2024 ambulatory LELE ALEJO [place] Start: 06-12-2024 End: 06-12-2024 ambulatory DAMI R AJITH [facility] Start: 06-04-2024 End: 06-04-2024 ambulatory LELE ALEJO Not Available Start: 05-14-2024 End: 05-14-2024 ambulatory DAMI R AJITH [facility] Start: 05-08-2024 End: 05-08-2024 ambulatory DAMI AJITH Not Available Start: 04-09-2024 End: 04-09-2024 ambulatory DAMI AJITH Not Available Start: 04-04-2024 ambulatory Dami R AJITH [place] [facility] Start: 03-12-2024 End: 03-12-2024 ambulatory DAMI AJITH Not Available Start: 02-24-2024 End: 02-24-2024 ambulatory DAMI AJITH Not Available Start: 12-04-2023 End: 12-04-2023 ambulatory Lyndon Joseerwood Other [employer] Other Start: 12-04-2023 Encounter by [employer] Lyndon Garciaerwood [facility] Start: 11-05-2023 End: 11-05-2023 ambulatory Lyndon Joseerwood Other [employer] Other Start: 11-05-2023 Encounter by Fisgo Lyndon Garciaerwood [facility] Start: 10-25-2023 End: 10-25-2023 ambulatory Lyndon John [place] Facility:[facility] Start: 10-10-2023 End: 10-10-2023 ambulatory Lyndon Joseerwood Other [employer] Other Start: 10-10-2023 Telephone encounter Lyndonjessica Garciaerwood [facility] Start: 09-26-2023 End: 09-26-2023 ambulatory Lyndon Joseerwood Other [employer] Other Start: 09-26-2023 Telephone encounter Lyndon Joseerwood [facility] Start: 09-18-2023 End: 09-18-2023 ambulatory Lyndon Joseerwood Other [employer] Other Start: 09-18-2023 Telephone encounter Lyndon Joseerwood [facility] Start: 09-15-2023 End: 09-15-2023 ambulatory LYNDON JOSEERWOOD [facility] [employer] Other Start: 09-15-2023 Office outpatient visit 25 minutes Lyndon Joseerwood [facility] Start: 08-18-2023 End: 08-18-2023 ambulatory LYNDON JOSEWOOD Facility:[facility] Start: 08-05-2023 Get Medical Advice Martina Rodriguez MD, PhD Work Phone: Endocrinology Comment on above: lab orders Start: 07-22-2023 End: 07-22-2023 ambulatory Lyndon Eufemiawood Other [employer] Other Start: 07-22-2023 Telephone encounter Lyndonjessica Garciawood [facility] Start: 07-12-2023 End: 07-12-2023 ambulatory Lyndon Josewood Other [employer] Other Start: 07-12-2023 Office outpatient visit 25 minutes Lyndon Joseerwood [facility] Start: 07-12-2023 Telephone encounter Lyndon Joseerwood [facility] Start: 07-08-2023 End: 07-08-2023 ambulatory SOBEIDA THOMPSON [place] Start: 06-27-2023 End: 06-27-2023 ambulatory Lyndon Josewood Other [employer] Other Start: 06-27-2023 Telephone encounter Lyndon Joseerwood [facility] Start: 06-21-2023 End: 06-21-2023 ambulatory SOBEIDA THOMPSON Facility:[facility] Start: 06-01-2023 End: 06-01-2023 ambulatory Benjamin BAKER [place] Start: 06-01-2023 End: 06-01-2023 ambulatory Bill Kat [facility] Start: 05-26-2023 End: 05-26-2023 ambulatory LYNDON EUFEMIAWOOD Facility:[facility] Start: 05-25-2023 End: 05-25-2023 ambulatory LYNDON JOSEWOOD [employer] Other Start: 05-25-2023 Office outpatient visit 15 minutes Lyndon Easterwood [facility] Start: 05-17-2023 End: 05-17-2023 ambulatory Benjamin John SAMUEL [place] Start: 05-05-2023 End: 05-05-2023 ambulatory Benjamin BAKER [facility] Start: 04-15-2023 End: 04-15-2023 ambulatory Benjamin BAKER [place] Start: 04-06-2023 End: 04-06-2023 ambulatory MARTINA RODRIGUEZ Facility:[facility] Start: 03-08-2023 End: 03-08-2023 ambulatory MARTINA RODRIGUEZ Facility:[facility] Start: 03-08-2023 End: 03-08-2023 Patient encounter procedure Martina Rodriguez MD, PhD Work Phone: Endocrinology Comment on above: Vikki's thyroidi tis (Primary Dx) Start: 02-28-2023 End: 02-28-2023 ambulatory Lyndon Joseerwood Other [employer] Other Start: 02-28-2023 Telephone encounter Lyndon Fallwood [facility] Start: 02-21-2023 End: 02-21-2023 ambulatory DEPARTMENTAL BUYER Lyndon John Garciaerrick Work Phone: [facility] Work Phone: Start: 02-21-2023 End: 02-21-2023 Discharged Recurring DEPARTMENTAL BUYER Lyndon Joseerwood Work Phone: [facility] Work Phone: Start: 08-09-2022 End: 08-09-2022 ambulatory Lyndon Joseerwood Other [employer] Other Start: 08-09-2022 Telephone encounter Lyndon Joseerwood [facility] Start: 08-05-2022 End: 08-06-2022 Emergency department patient visit Lyndon Lopez Eufemiawood Facility:[facility] Start: 08-05-2022 End: 08-05-2022 ambulatory Lyndon Joseerwood Other [employer] Other Start: 08-05-2022 [facility] Procedures Date Procedure Procedure Detail Performing Clinician Start: 07-31-2024 Urnls dip stick/tabl et rgnt non-auto w/o micrscp Dami Canseco DO Work Phone: Plan of Treatment Date Care Activity Detail Author Start: 09-17-2024 End: 09-17-2024 Patient encounter procedure 09/17/2024 8:40 AM EST Routine [facility] [address] [place] [address] Dami Canseco, DO [address], [place] [id number] [facility] Start: 09-10-2024 End: 09-10-2024 Patient encounter procedure 09/10/2024 8:40 AM EST Routine [facility] [address] [place] [id number] Dami Canseco, DO [address] [place] [address] [facility] Start: 09-03-2024 End: 09-03-2024 Patient encounter procedure 09/03/2024 8:40 AM EST Routine [facility] [address] [place] [id number] Dami Canseco, DO [address] [place] [address] [facility] Start: 08-27-2024 End: 08-27-2024 Patient encounter procedure 08/27/2024 8:40 AM EDT Routine [facility] [address] [place] [phone] Dami Canseco, DO [address] [place] [address] [facility] Start: 08-14-2024 End: 08-14-2024 Patient encounter procedure 08/14/2024 8:40 AM EDT [facility] [address] [facility] [place] [phone] Dami Canseco, DO [address] [place] [address] [facility] Start: 08-06-2024 End: 08-06-2024 Professional / ancillary services management 08/06/2024 8:00 AM EDT Ancillary Procedure [facility] [address] [facility] [place] [phone] [facility] Start: 07-31-2024 End: 07-31-2024 Patient encounter procedure 07/31/2024 8:50 AM EDT Routine [facility] [address] [place] [phone] Dami Canseco, DO [address] [place] [address] Arrived [facility] Comment on above: Arrived Start: 07-01-2024 Influenza vaccination Influenza Vacc ine (#1) [facility] Start: 08-08-2023 End: 10-08-2023 Thyrotropin [Units/volume] in Serum or Plasma TSH BLD Lab Routine Vikki's thyroiditis Expected: 08/08/2023, Expires: 10/08/2023 [facility] Work Phone: Comment on above: Expected: 08/08/2023 , Expires: 10/08/2023 Start: 08-08-2023 End: 10-08-2023 Thyroxine (T4) free [Mass/volume] in Serum or Plasma T4 FREE/FREE THYROX Lab Routine Vikki's thyroiditis Expected: 08/08/2023, Expires: 10/08/2023 [facility] Work Phone: Comment on above: Expected: 08/08/2023 , Expires: 10/08/2023 Start: 07-07-2023 Urine microalbumin profile [facility] Start: 07-01-2023 Covid-19 Vaccine () Covid-19 Vaccine () [facility] Start: 07-01-2023 Influenza vaccination Influenza Vacc ine (#1) [facility] Start: 03-31-2023 End: 05-31-2023 Thyroglobulin Ab [Units/volume] in Serum or Plasma THYROGLOBULIN AB Lab Routine Vikki's thyroiditis Expected: 03/31/2023, Expires: 05/31/2023 [facility] Work Phone: Comment on above: Expected: 03/31/2023 , Expires: 05/31/2023 Start: 03-31-2023 End: 05-31-2023 THYROID PEROXIDASE ANTIBODY BLOOD THYROID PEROXIDASE ANTIBODY BLOOD Lab Routine Vikki's thyroiditis Expected: 03/31/2023, Expires: 05/31/2023 [facility] Work Phone: Comment on above: Expected: 03/31/2023 , Expires: 05/31/2023 Start: 03-31-2023 End: 05-31-2023 Thyrotropin [Units/volume] in Serum or Plasma TSH BLD Lab Routine Vikki's thyroiditis Expected: 03/31/2023, Expires: 05/31/2023 [facility] Work Phone: Comment on above: Expected: 03/31/2023 , Expires: 05/31/2023 Start: 03-31-2023 End: 05-31-2023 Thyroxine (T4) free [Mass/volume] in Serum or Plasma T4 FREE/FREE THYROX Lab Routine Vikki's thyroiditis Expected: 03/31/2023, Expires: 05/31/2023 [facility] Work Phone: Comment on above: Expected: 03/31/2023 , Expires: 05/31/2023 Start: 03-31-2023 End: 05-31-2023 Triiodothyronine (T3) Free [Mass/volume] in Serum or Plasma T3 FREE BLD Lab Routine Vikki's thyroiditis Expected: 03/31/2023, Expires: 05/31/2023 [facility] Work Phone: Comment on above: Expected: 03/31/2023 , Expires: 05/31/2023 Start: 10-31-2022 DEPRESSION ASSESSMENT DEPRESSION ASS ESSMENT [facility] Start: 2021 PAP TESTING PAP TESTING [facility] Start: 02-02-2021 COVID-19 VACCINE (3 - Booster for Pfizer series) COVID-19 VACCINE (3 - Booster for Pfizer series) [facility] Start: 2018 CHLAMYDIA SCREENING (18-24) CHLAMYDIA SCREENING (18-24) [facility] Start: 2018 GC (GONORRHEA) SCREE MICHELLE (18-24) GC (GONORRHEA) SCREENING (18-24) [facility] Start: 2018 HEPATITIS C SCREENING HEPATITIS C SC REENING [facility] Start: 2018 HIV SCREENING HIV SCREENING [facility] Start: 2016 Meningococcal B Vacc ine: Consider Based On Risk (2 of 2 - Risk Bexsero 2-dose series) Meningococcal B Vaccine: Consider Based On Risk (2 of 2 - Risk Bexsero 2-dose series) [facility] Start: 2016 MENINGOCOCCAL B: Con batter scaler based on risk (2 of 2 - Risk Bexsero 2-dose series) MENINGOCOCCAL B: Consider based on risk (2 of 2 - Risk Bexsero 2-dose series) [facility] Start: 2014 PEDS TO ADULT TRANSI TION ANNUAL ASSESSMENT PEDS TO ADULT TRANSITION ANNUAL ASSESSMENT [facility] Start: 2012 PEDS TO ADULT TRANSI TION INITIAL DISCUSSION PEDS TO ADULT TRANSITION INITIAL DISCUSSION [facility] Immunizations Immunization Date Immunization Notes Care Provider Milady lewis 07-19-2022 influenza, injectabl e, quadrivalent, contains preservative Lyndon Dalal Other [employer] Other 07-19-2022 influenza virus vaccine, unspecified formulation Martina Rodriguez MD, PhD Work Phone: [facility] 12-08-2020 Do not use COVID-19 Pfizer 2 dose Lyndon Easterwood Other [employer] Other 11-17-2020 Do not use COVID-19 Pfizer 2 dose Lyndon Easterwood Other [employer] Other 07-31-2020 influenza, injectabl e, quadrivalent, contains preservative Lyndon Easterwood Other [employer] Other 10-18-2016 influenza, injectabl e, quadrivalent, contains preservative Martina Rodriguez MD, PhD Work Phone: [facility] 08-04-2015 influenza, injectabl e, quadrivalent, contains preservative Martina Rodriguez MD, PhD Work Phone: [facility] 04-23-2014 human papilloma viru s vaccine, quadrivalent Martina Rodriguez MD, PhD Work Phone: [facility] 09-29-2013 human papilloma viru s vaccine, quadrivalent Martina Rodriguez MD, PhD Work Phone: [facility] 07-07-2013 human papilloma viru s vaccine, quadrivalent Martina Rodriguez MD, PhD Work Phone: [facility] 07-07-2013 meningococcal polysaccharide (groups A, C, Y and W-135) diphtheria toxoid conjugate vaccine (MCV4P) Martina Rodriguez MD, PhD Work Phone: [facility] Work Phone: 07-07-2013 tetanus toxoid, redu ollie diphtheria toxoid, and acellular pertussis vaccine, adsorbed Martina Rodriguez MD, PhD Work Phone: [facility] 08-04-2009 influenza virus vaccine, unspecified formulation Martina Rodriguez MD, PhD Work Phone: [facility] 07-05-2008 hepatitis A vaccine, unspecified formulation Martina Rodriguez MD, PhD Work Phone: [facility] 09-09-2007 influenza virus vaccine, unspecified formulation Martina Rodriguez MD, PhD Work Phone: [facility] Work Phone: 06-19-2007 hepatitis A vaccine, unspecified formulation Martina Rodriguez MD, PhD Work Phone: [facility] 06-19-2007 varicella virus vaccine Parth Rodriguez MD, PhD Work Phone: [facility] 09-14-2006 influenza virus vaccine, unspecified formulation Martina Rodriguez MD, PhD Work Phone: [facility] 05-13-2006 diphtheria, tetanus toxoids and acellular pertussis vaccine Martina Rodriguez MD, PhD Work Phone: [facility] Work Phone: 05-13-2006 measles, mumps and rubella virus vaccine Martina Rodriguez MD, PhD Work Phone: [facility] Work Phone: 05-13-2006 poliovirus vaccine, inactivated Martina Rodriguez MD, PhD Work Phone: [facility] Work Phone: 05-13-2006 varicella virus vaccine Parth Rodriguez MD, PhD Work Phone: [facility] Work Phone: 07-26-2005 influenza virus vaccine, unspecified formulation Martina Rodriguez MD, PhD Work Phone: [facility] Work Phone: 07-30-2004 influenza virus vaccine, unspecified formulation Martina Rodriguez MD, PhD Work Phone: [facility] Work Phone: 06-30-2002 diphtheria, tetanus toxoids and acellular pertussis vaccine Martina Rodriguez MD, PhD Work Phone: [facility] Work Phone: 06-30-2002 poliovirus vaccine, inactivated Martina Rodriguez MD, PhD Work Phone: [facility] Work Phone: 04-04-2002 haemophilus influenz ae type b vaccine, HbOC conjugate Martina Rodriguez MD, PhD Work Phone: [facility] Work Phone: 04-04-2002 measles, mumps and rubella virus vaccine Martina Rodriguez MD, PhD Work Phone: [facility] Work Phone: 12-16-2001 hepatitis B vaccine, pediatric or pediatric/adolescent dosage Martina Rodriguez MD, PhD Work Phone: [facility] Work Phone: 12-16-2001 pneumococcal conjuga te vaccine, Shaq Rodriguez MD, PhD Work Phone: [facility] Work Phone: 09-30-2001 pneumococcal conjuga te vaccine, Shaq Rodriguez MD, PhD Work Phone: [facility] Work Phone: 06-24-2001 diphtheria, tetanus toxoids and acellular pertussis vaccine Martina Rodriguez MD, PhD Work Phone: [facility] Work Phone: 06-24-2001 haemophilus influenz ae type b vaccine, HbOC conjugate Martina Rodriguez MD, PhD Work Phone: [facility] Work Phone: 06-24-2001 pneumococcal conjuga te vaccine, Shaq valdenny Rodriguez MD, PhD Work Phone: [facility] Work Phone: 04-12-2001 diphtheria, tetanus toxoids and acellular pertussis vaccine Martina Rodriguez MD, PhD Work Phone: [facility] Work Phone: 04-12-2001 haemophilus influenz ae type b vaccine, HbOC conjugate Martina Rodriguez MD, PhD Work Phone: [facility] Work Phone: 04-12-2001 poliovirus vaccine, inactivated Martina Rodriguez MD, PhD Work Phone: [facility] Work Phone: 02-03-2001 diphtheria, tetanus toxoids and acellular pertussis vaccine Martina Rodriguez MD, PhD Work Phone: [facility] Work Phone: 02-03-2001 haemophilus influenz ae type b vaccine, HbOC conjugate Martina Rodriguez MD, PhD Work Phone: [facility] Work Phone: 02-03-2001 poliovirus vaccine, inactivated Martina Rodriguez MD, PhD Work Phone: [facility] Work Phone: [phone] hepatitis B vaccine, pediatric or pediatric/adolescent dosage Martina Rodriguez MD, PhD Work Phone: [facility] Work Phone: 2000 hepatitis B vaccine, pediatric or pediatric/adolescent dosage Martina Rodriguez MD, PhD Work Phone: [facility] Work Phone: Payers Date Payer Category Payer Private Health Insurance [id number] 2024 Unknown [id number] 2023 Unknown [id number] 2022 Private Health Insurance [id number] 2022 Self-pay 2020 Private Health Insurance [id number] 2.16.840.1.089824.19 2020 Private Health Insurance 1.2 .[id number]. [id number] 2000 Unknown [id number] 2.16.840.1.265249.3.579.2.727 2000 Unknown [id number] 2.16.840.1.798266.3.579.2.727 2000 Unknown [id number] 2.16.840.1.580622.3.579.2.727 2000 Unknown [id number] 2.16.840.1.108501.3.579.2.727 2000 Unknown [id number] 2.16.840.1.174043.3.579.2.727 2000 Unknown [id number] 2.16.840.1.662143.3.579.2.727 2000 Unknown [id number] 2.16.840.1.125535.3.579.2.727 2000 Unknown [id number] 2.16.840.1.560527.3.579.2.727 2000 Unknown [id number] 2.16.840.1.791680.3.579.2.727 2000 Unknown [id number] 2.16.840.1.291797.3.579.2.727 2000 Unknown [id number] 2.16.840.1.702887.3.579.2.727 2000 Unknown [id number] 2.16.840.1.733785.3.579.2.1286 2000 Unknown [id number] 2.16.840.1.164468.3.579.2.1286 2000 Unknown [id number] 2.16.840.1.332884.3.579.2.1286 2000 Unknown [id number] 2.16.840.1.829003.3.579.2.727 2000 Unknown [id number] 2.16.840.1.336553.3.579.2.727 2000 Unknown [id number] 2.16.840.1.538921.3.579.2.1259 2000 Unknown [id number] 2.16.840.1.332866.3.579.2.1259 2000 Unknown [id number] 2.16.840.1.830754.3.579.2.1259 2000 Unknown [id number] 2.16.840.1.342642.3.579.2.1259 2000 Unknown [id number] 2.16.840.1.648307.3.579.2.1259 2000 Unknown [id number] 2.16.840.1.633028.3.579.2.1259 2000 Unknown [id number] 2.16.840.1.450093.3.579.2.1259 2000 Unknown [id number] 2.16.840.1.313880.3.579.2.1259 2000 Unknown [id number] 2.16.840.1.308513.3.579.2.1259 Private Health Insurance [facility] [id number] Unknown [id number] 2.16.840.1.979625.3.579.2.531 Unknown [facility] Employees [id number] Unknown [id number] 2.16.840.1.074473.3.579.2.531 Social History Date Type Detail Facility Start: 03-08-2023 End: 07-05-2024 Sex Assigned At [facility] Other Start: 09-27-2014 End: 07-05-2024 Tobacco smoking status NHIS Never smoked tobacco [facility] History of tobacco use Passive smoker [facility] Start: 03-08-2023 Alcohol intake Not Asked [facility] Start: 2000 Sex Assigned At Not on file [facility] Start: 2000 Sex Assigned At Female [facility] [place] Start: 03-08-2023 End: 07-05-2024 History of Social function [facility] Start: 07-05-2024 Tobacco use and exposure Smokeless tobacco non-user [facility] Start: 07-19-2024 End: 07-31-2024 Alcoholic [...] 4 mg, Oral, Every 6 hours PRN Qydvtvaf-Lvs-Dx-FA ( 1 + IRON PO) ALLERGIES Allergies [...] for routine OB appointment. Documented by NIDIA uMltani on behalf of: Dami Canseco DO documented in this encounter [facility] 09-15-2023 Evaluation note Encounter Date Diagnosis [...] in office today for physical therapy to [facility]. Discussed continuation of zjzr-rdc-sjngloj medications as needed. Take muscle relaxer as [...] office today for physical therapy to [facility]. Discussed continuation of uddu-bhv-ilqpnfa medications as needed. Take muscle relaxer as [...] that were not corrected during review process. [facility] Other 09-12-2023 Evaluation note* Encounter Date Diagnosis [...] that were not corrected during review process. [facility] Other 07-26-2023 Evaluation note* Encounter Date Diagnosis [...] that were not corrected during review process. [facility] Other 06-18-2023 NoteEchocardiology Procedure Exam Date/Time Accession # Ordering ECG Stress Exercise 04/15/2023 08:43 EDT [id number] Benjamin Baker MD CPT code 34923 Reason for Exam (ECG Stress Exercise) I95.1;Dizziness [...] Benjamin Baker MD Transcribed by: jamie Technologist: [facility]06-16-2023 Note Echocardiology Procedure Exam Date/Time Accession # Ordering Echo Transthoracic 04/15/2023 09:42 EDT [id number] Benjamin Baker MD Complete CPT code 05703 07032 Reason for Exam (Echo Transthoracic Complete) I95.9;Hypotension Report [facility] [address] [place] [address] Adult Echocardiogram Report Name: EMMY DALE Study Date: 04/15/2023 09:02 AM BP: 105/71 mmHg Patient Location: [facility] HR: 75 : 2000 Gender: Female Height: 63 in Age: 22 yrs Ethnicity: [facility] Weight: 178 lb Reason For Study: Hypotension BSA: 1.8 m2 History: No cardiac history per patient Ordering Physician: Samuel^Benjamin^John Referring Physician: Benjamin Baker Performed By: Jonelle Alvarez [facility] Interpretation Summary Ejection Fraction = [...] Benjamin Baker MD Transcribed by: YOVANI Technologist: [facility]05-09-2023 Note HNO ID: [id number] Author: Martina Rodriguez MD, PhD Service: ? [...] Father in blood . was at [facility] when baby thought to be related [...] Plan: Will monitor thyroid (more content not included)...[facility] 03-08-2023 History of Present illness Narrative* Martina [...] Father in blood . was at [facility] when baby thought to be related [...] Martina Rodriguez MD, PhD [facility]* Encounter Date Diagnosis Assessment [...] I would recommend referral to a different population health coach. Patient does have the name of an population health coach that she would like referred to. We will put that referral in today. Dr. Roger Kim - [facility] Endocrinology, [facility] February, Dizziness (ICD-10 - R42) Discussed [...] that were not corrected during review process. [facility] Other 10-06-2022 Evaluation note* Encounter Date Diagnosis [...] to ER, I highly recommend she call [facility] the second she leaves our office to follow-up.She needs to let them know about her concerns.I explained to her that even though she may assume that her [facility] will not listen her , I still want her to reach out to that office and explained to them her current concerns. She wants to know what the immediate treatment would be and work-up for spinal headache and possible leak however I cannot provide her with this information as I am not [facility]. Jul, Hip pain (ICD-10 - M25.559) While [...] I did discuss with her concerns over nhqu-oid-avbeyro medications during breast-feeding. Discussed recommendations currently and please bring this up to [facility] as well for further recommendations. Does not [...] I would like her to follow-up with [facility] or go to ER regarding this dizziness and we can follow-up in office after. If nothing comes from an [facility]/spinal headache/spinal leak standpoint, we can order CT [...] that were not corrected during review process. [facility] Other 11-10-2009 History of Past illness Narrative* Problem Noted Date Resolved Date Constipation 09/09/2009 08/28/2014 documented as of this encounter (statuses as of 03/09/2023) [facility]11-[facility] History of Past illness Narrative* Problem Noted Date Diagnosed Date Resolved Date Constipation 09/09/2009 08/28/2014 documented as of this encounter (statuses as of 08/09/2023) [facility] noteNo InformationNort [employer] Other Evaluation note* Diagnosis Vikki's thyroiditis- Primary Chronic lymphocytic thyroiditis documented in this encounter [facility] noteNo assessment information availableC[facility] Work Phone: Evaluation note* Diagnosis Vikki's thyroiditis- Primary Chronic lymphocytic thyroiditis documented in this encounter [facility] note* Diagnosis 31 weeks gestation of Third trimester state, incidental documented [facility] - Reported* Type Description Date Medical History Asthma Medical History Vasovagal syndrome- childhood (r esolved) Medical History Exercise-induced asthma Medical History Pityriasis rosea Medical History Tachycardia Medical History Vikki's thyroiditis Medical History Pre-eclampsia Surgical History [place] teeth extract 2017 Surgical History Vaginal childbirth 03/2022 Hospitalization History See surgical hx [facility] Other Hislwul general Narrative - Reported* Type Description Date Medical History Exercise-induced asthma Medical History Pityriasis rosea Medical History Tachycardia Medical History Vikki's thyroiditis Medical History Asthma Medical History Pre-eclampsia Medical History Hypotension Surgical History [place] teeth extract 2017 Surgical History Vaginal childbirth 03/2022 Hospitalization History See surgical hx [facility] Other History general Narrative - Reported* Type Description Date Medical History Exercise-induced asthma Medical History Pityriasis rosea Medical History Tachycardia Medical History Vikki's thyroiditis Medical History Asthma Medical History Pre-eclampsia Medical History Hypotension Medical History GERD (gastroesophageal reflux di sease) Surgical History [place] teeth extract 2017 Surgical History Vaginal childbirth 03/2022 Surgical History EGD/colonoscopy 2012 Hospitalization History See surgical hx [facility] Other Hisozer general Narrative - Reported* Type Description Date Medical History Exercise-induced asthma Medical History Pityriasis rosea Medical History Tachycardia Medical History Vikki's thyroiditis Medical History Asthma Medical History Pre-eclampsia Medical History Hypotension Medical History GERD (gastroesophageal reflux di sease) Medical History Thyromegaly Surgical History [place] teeth extract 2017 Surgical History Vaginal childbirth 03/2022 Surgical History EGD/colonoscopy 2011 Hospitalization History See surgical hx [facility] Other Hisnwqv general Narrative - Reported* Type Description Date Medical History Exercise-induced asthma Medical History Pityriasis rosea Medical History Tachycardia Medical History Vikki's thyroiditis Medical History Asthma Medical History Pre-eclampsia Medical History Hypotension Medical History GERD (gastroesophageal reflux di sease) Medical History Thyromegaly Medical History Other idiopathic scoliosis, thor acic region Surgical History [place] teeth extract 2017 Surgical History Vaginal childbirth 03/2022 Surgical History EGD/colonoscopy 2011 Hospitalization History See surgical hx [facility] Other Summary Purpose Family History No Family [...] (K29.01) Referral Organization [facility] Referring Provider First Name Lyndon Referring Provider Last Name Joserick Referring Provider Specialty Nurse Pract itioner Referred Organization [facility] Referred Provider Patricio Urena Referred Address [address],[facility] [address] ,[place], [place],[address] Referred Provider Specialty Gastroentero logy Referral Priority Routine General Notes Misti Vivas 023 10:08:56 AM >Received today. [facility] request us to fill out their form and fax to them. They will review the referral and call patient to schedule them. Referral was fax. Misti Vivas 07/12/2023 01:31:38 PM >Per telephone encounter, patient wants to try [facility]. Sent P2P Reason *03/08 Dr. Hawa Kim - [facility] Endocrinology, [facility]; [employer]- please send this note with 2 previous notes Diagnosis 1 Vikki's thyroidi tis (E06.3) Referral Organization [facility] [employer] Referring Provider First Name Lyndon Referring Provider Last Name [facility] Referring Provider Specialty Nurse Pract itioner Referred Organization [facility] Referred Address [address] [place], [place],[address] Referred Provider Specialty Endocrinolog y Referral Priority Routine General Notes [facility] 0[facility] 01:21:05 PM >Received today and referral was fax with the [facility] Form. They will review and call patient to schedule Reason *03/08 Dizzines s- TERRENCE; Please send this note with 2 previous notes Diagnosis 1 Dizziness (R42) Referral Organization [facility] [employer] Referring Provider First Name Lyndon Referring Provider Last Name [facility] Referring Provider Specialty Nurse Pract itioner Referred Organization [facility] Referred Provider Jose Dominguez Referred Address [address] [place] [place], [place],[address] Referred Provider Specialty Neurology Referral Priority Routine [...] section and content) DATE CREATED AUTHOR 08/06/2022 [facility] DATE CREATED AUTHOR AUTHOR'S ORGANIZ ATION 08/20/2023 [facility] DATE CREATED AUTHOR AUTHOR'S ORGANIZ ATION 04/06/2024 [facility] DATE CREATED AUTHOR AUTHOR'S ORGANIZ ATION 05/03/2024 [facility] DATE CREATED AUTHOR AUTHOR'S ORGANIZ ATION 05/18/2024 [facility] DATE CREATED AUTHOR AUTHOR'S ORGANIZ ATION 06/14/2024 [facility] DATE CREATED AUTHOR AUTHOR'S ORGANIZ ATION 06/26/2024 [facility] DATE CREATED AUTHOR AUTHOR'S ORGANIZ ATION 07/07/2024 [facility] DATE CREATED AUTHOR AUTHOR'S ORGANIZ ATION 07/24/2024 [facility] DATE CREATED AUTHOR AUTHOR'S ORGANIZ ATION 07/29/2024 [facility] DATE CREATED AUTHOR AUTHOR'S ORGANIZ ATION 08/01/2024 [facility] dical Specialists EPIC REASON FOR VISIT [...] or prosecute any alcohol or drug abuse patient.[facility] HospitalIn the event this information is protected by the Federal Confidentiality of Alcohol and Drug Abuse Patient Records regulations: The Federal rules restrict any use of the information to criminally investigate or prosecute any alcohol or drug abuse patient.[facility] Care Teams (unrecognized sec tion and content) Lunchroom Attendant Relationship Specialty Start Date End Date Joseelham LyndonJAMES [address] [address] PCP - General Family Medicine 03/08/23 JoseLyndon lizarraga [employer] [address] [address] Referring Family Medicine 03/04/23 Team Status: Active Member Role Status Dates Lyndon Dalal APRN Primary Care Provider Active Team Status: Inactive Member Role Status Dates Lyndon Dalal APRN Primary Care Provider, Attend ing Provider Active Lunchroom Attendant Relationship Specialty Start Date End Date EufemiarickDallasa JAMES [address] [address] PCP - General Family Medicine 03/08/23 Lyndon Dalal CNP [address] [address] Referring Family Medicine 03/04/23 Lunchroom Attendant Relationship Specialty Start Date End Date Ge Cloud MD [address] [phone] PCP - General Family Medicine 01/25/24 Lunchroom Attendant Relationship Specialty Start Date End Date Ge Cloud MD [address] [phone] PCP - General Family Medicine 01/25/24 Goals [...] BE BASED ON THE PRIMARY CLINICAL RECORDS. [facility] [employer] [facility]. provides no warranty or guarantee of the accuracy or completeness of information in this document.
[2024-08-15 18:19] VITALS: BP 125/68; PULSE 82
== END 2024-08-15 18:50 | disposition home or self-care (01) ==
LOC: FBCO 07:03 → FBC 18:13
PROVIDERS: PCP Family Medicine; Visit Provider Obstetrics & Gynecology
DX: O43.893 Other placental disorders, third trimester (principal)
CPT/HCPCS: 59025

== ENCOUNTER 2024-08-18 07:28 | Outpatient (OUT) | payer OTHER, SELFPAY ==
--- OUTSIDE RECORDS SUMMARY | 2024-08-18 07:32 | XMS_ITS | CCD ---
Author Organization [facility] Care Team Providers Care Temperature Inspector Name Role Phone Lyndon Dalal Primary Care Unavailable Juancarlos Maria Attending Unavailable Juancarlos Maria Admitting Unavailable Yoselin, Lyndon Unavailable Dallas Dalal CNPa Unavailable Lyndon Dalal CNP Primary Care Provider ANKIT Dalal Primary Care Provider ANKIT Dalal Attending Provider [phone] YOSELIN, LYNDON Primary Care Unavailable MARTINA RODRIGUEZ [...] Dami R Attending Unavailable Pedro Luis VELAZQUEZ, [place] Primary Care Provider AJITH, DAMI Attending Unavailable AJITH, DAMI Attending Unavailable AJITH, DAMI Attending Unavailable MELO, LELE Attending Unavailable AJITH, DAMI Attending Unavailable AJITH, DAMI Attending Unavailable MELO, LELE Attending Unavailable AJITH, DAMI Attending Unavailable AJITH, DAMI Attending Unavailable Allergies Allergy Classification Reported Allergen(s) Allergy Type Date of Onset Reaction(s) Facility Sulfonamides (antibiotic) (1 source) Sulfonamides (Antibiotic); Translations: [sulfa drugs] Drug Allergy [facility] (6 sources) Sulfonamides (Antibiotic); Translations: [SULFA (SULFONAMIDE ANTIBIOTICS)] Drug allergy (disorder) 5 [facility] Repository (2 sources) Sulfonamide Drug allergy [facility] Other (20 sources) Substance with sulfonamide structure and antibacterial mechanism of action (substance) Drug allergy 5 rash [facility] (3 sources) Sulfonamides (Antibiotic); Translations: [sulfa drugs] Propensity to adverse reactions (disorder) [facility] Medications Current Medications Medication Drug Class(es) Dates Sig (Normalized) Sig (Original) aspirin 81 mg delayed release oral tablet (6 sources) Platelet Aggregation Inhibitor, Nonsteroidal Anti-inflammatory Drug take 1 tablet by mouth in the morning aspirin 81 MG EC tablet Take 81 mg by mouth in the morning. Active calcium polycarbophil 625 mg oral tablet (6 sources) take 1 tablet by mouth once [...] Active docusate sodium 100 mg oral capsule (6 sources) take 1 capsule by mouth once daily docusate sodium (Colace) 100 MG capsule Take 100 mg by mouth Daily Active Lecithin (2 sources) Lecithin Sunflow er Lecithin, one capsule daily Active levothyroxine sodium 0.1 mg oral tablet (18 sources) l-Thyroxine Start: 06-25-2024 take 1 tablet [...] daily. magnesium oxide 400 mg oral tablet (6 sources) Start: 024 End: 025 take 1 [...] Active ondansetron 4 mg disintegrating oral tablet (6 sources) Serotonin-3 Receptor Antagonist Start: take 1 tablet by mouth every six hours for nausea ondansetron ODT (Zofran-ODT) 4 MG disintegrating tablet Indications: Nausea/vomiting in Take 1 tablet (4 mg) by mouth every 6 (six) hours if needed for nausea or vomiting for up to 30 doses 30 tablet 2 02/15/2024 Active predniSONE 20 mg oral tablet (4 sources) Start: take 1 tablet by mouth once daily predniSONE 20 MG 1 tab Orally Once a day for 5 days Aug, Active Valfqgpv-Njt-Uq-FA ( 1 + IRON PO) (6 sources) Start: Qcncfotx-Lrq-Qb-FA ( 1 + IRON PO) 01/20/2024 Active Vitamins (2 sources) Vitamin s OTC, daily Active tamsulosin hydrochloride 0.4 mg oral capsule (2 sources) alpha-Adrenergic Mira Start: take 1 capsule by mouth every twenty-four hours Tamsulosin HCl 0.4 MG 1 capsule Orally Once a day for 14 days Apr, Active tiZANidine 2 mg oral tablet (4 sources) Central alpha-2 Adrenergic Agonist Start: take 1 tablet by mouth twice daily as needed tiZANidine HCl 2 MG 1 tablet as needed Orally BID PRN for 14 days Aug, Active Completed/Discontinued Medications Medication Drug Class(es) Dates Sig (Normalized) Sig (Original) biotin 10 mg oral tablet (16 sources) take 1 tablet by fredi th every twenty-four hours Biotin 62761 MCG 1 tablet Orally Once a day OTC Not-Taking/PRN take 1 tablet by fredi th every twenty-four hours Biotin 83394 MCG 1 tablet Orally Once a day OTC Not-Taking take 1 tablet by mouth once [place] [facility] Biotin 03179 MCG 1 tablet Orally Once a day OTC Not-Taking BIOTIN ORAL Take by mouth q 24 HR. 0 Active take 1 tablet by mouth once [place] Biotin 87597 MCG 1 tablet Orally Once a day [...] Comment on above: Take 1 tablet by [facility] once daily. Iodine (14 sources) Iodine [...] Probiotic OTC, daily Active lactobacillus rhamnosus gg [id number] unt oral capsule (1 source) Start: 5 End: 3 take 1 capsule by mouth once daily lactobacillus rhamnosus (CULTURELLE) 10 billion cell capsule Indications: Abdominal pain Take 1 capsule by mouth once daily. 30 capsule 2 04/30/2015 03/08/2023 Discontinued Comment on above: Take 1 capsule [facility] daily. Moringa (14 sources) Moringa 6000MG, [...] trimester] Onset: 05-14-2024 Episodic Other complications of (6 sources) Abnormal amniotic fluid; Translations: [Other abnormal findings on screening of mother] Onset: 07-05-2024 07-05-2024 Episodic Other inflammatory condition of skin (14 sources) Pityriasis rosea; Translations: [Pityriasis rosea] Chronic Other non-traumatic joint disorders (1 source) Pain in unspecified hip Episodic Other nutritional; endocrine; and metabolic disorders (1 source) Abnormal weight loss Episodic Other and delivery including normal (5 sources) Encounter for care and examination of [...] ] Onset: 05-14-2024 Episodic Residual codes; unclassified (6 sources) Gestation period, 27 weeks; Translations: [27 weeks gestation of ] Onset: 07-05-2024 07-05-2024 Episodic Residual codes; unclassified (2 sources) Gestation period, 31 weeks; Translations: [31 weeks gestation of ] 07-31-2024 Episodic Residual codes; unclassified (2 sources) Gestation period, 33 weeks; Translations: [33 weeks gestation of ] 08-14-2024 Episodic Spondylosis; intervertebral disc disorders; other back [...] Range Facility Urinalysis macro (dipstick) panel (U)on 08-14-2024 Bilirubin, UA Negative Negative - 4(70) +++ mg/dL [facility] Blood, UA Negative Negative - 50 Juanito/mcL [facility] Clarity, UA Clear [facility] Color, UA Yellow [facility] Glucose, UA Negative Negative - 1999(110) ++++ mg/dL [facility] Interpretation and review of laboratory results Abnormal [facility] Ketones, UA Negative Negative - 160(16) ++++ mg/dL [facility] Leukocytes, UA Trace Negative - 500+++ Ken/mcL [facility] Nitrite, UA Negative Negative - Positive [facility] pH, UA 6.5 5 - 9 [facility] Protein, UA Negative Negative - 1999(20) ++++ mg/dL [facility] Spec Grav, UA 1.015 1 - 1.03 [facility] Urobilinogen, UA 0.2 0.2 - 12 mg/dL [facility] Urinalysis macro (dipstick) panel (U)on 07-31-2024 Bilirubin, UA Negative Negative - 4(70) +++ mg/dL [facility] Blood, UA Negative Negative - 50 Juanito/mcL [facility] Clarity, UA Clear [facility] Color, UA Yellow [facility] Glucose, UA Negative Negative - 2000(110) ++++ mg/dL [facility] Interpretation and review of laboratory results Abnormal [facility] Ketones, UA Negative Negative - 160(16) ++++ mg/dL [facility] Leukocytes, UA Positive Negative - 500+++ Ken/mcL [facility] Comment on above: small Nitrite, UA Negative Negative - Positive [facility] pH, UA 6.5 5 - 9 [facility] Protein, UA Negative Negative - 2000(20) ++++ mg/dL [facility] Spec Grav, UA 1.010 1 - 1.03 [facility] Urobilinogen, UA 0.2 0.2 - 12 mg/dL [facility] CBC w/ Auto Diffon 4 Basophils/100 WBC (Bld) 0.4 % Normal 0.0-2.0 [facility] Comment on above: Performed By: #### 2 [id number] #### [facility] [address] [place] [address] Basophils/Leukocyt es Auto (Bld) [Pure # fraction] 0.0 E9/L Normal 0.0-0.2 [facility] Comment on above: Performed By: #### 2 510310 #### [facility] [address] [place] [address] Eosinophils (Bld) [#/Vol] 0.2 E9/L Normal 0.0-0.5 [facility] Comment on above: Performed By: #### 2 636919 #### [facility] [address] [place] [address] Eosinophils/100 WBC (Bld) 2.9 % Normal 0.0-8.0 [facility] Comment on above: Performed By: #### 2 197707 #### [facility] [address] [place] [address] Erythrocyte distribution width (RBC) [Ratio] 13.6 % Normal 10.9-14.2 [facility] Comment on above: Performed By: #### 2 341600 #### [facility] [address] [place] [address] Hematocrit (Bld) [Volume fraction] 37.3 % Normal 34.0-46.0 [facility] Comment on above: Performed By: #### 2 178478 #### [facility] [address] [place] [address] Hemoglobin (Bld) [Mass/Vol] 12.8 g/dL Normal 12.0-16.0 [facility] Comment on above: Performed By: #### 2 788800 #### [facility] [address] [place] [address] Lymphocytes (Bld) [#/Vol] 1.9 E9/L Normal 1.0-4.0 [facility] Comment on above: Performed By: #### 2 873059 #### [facility] [address] [place] [address] Lymphocytes/100 WBC (Bld) 24.0 % Normal 14.0-50.0 [facility] Comment on above: Performed By: #### 2 061524 #### [facility] [address] [place] [address] MCH (RBC) [Entitic mass] 30.5 pg Normal 27.0-34.0 [facility] Comment on above: Performed By: #### 2 905988 #### [facility] [address] [place] [address] MCHC (RBC) [Mass/Vol] 34.2 g/dL Normal 31.4-36.0 [facility] Comment on above: Performed By: #### 2 630280 #### [facility] [address] [place] [address] MCV (RBC) [Entitic vol] 89.0 fL Normal 80.0-100.0 [facility] Comment on above: Performed By: #### 2 669455 #### [facility] [address] [place] [address] Monocytes (Bld) [#/Vol] 0.4 E9/L Normal 0.2-1.0 [facility] Comment on above: Performed By: #### 2 340415 #### [facility] [address] [place] [address] Neutrophils (Bld) [#/Vol] 5.5 E9/L Normal 2.0-7.5 [facility] Comment on above: Performed By: #### 2 863707 #### [facility] [address] [place] [address] Neutrophils/100 WBC (Bld) 67.8 % Normal 36.0-75.0 [facility] Comment on above: Performed By: #### 2 855271 #### [facility] [address] [place] [address] Platelet mean volume (Bld) [Entitic vol] 8.3 fL Normal 6.4-10.8 [facility] Comment on above: Performed By: #### 2 222425 #### [facility] [address] [place] [address] Platelets (Bld) [#/Vol] 267.0 E9/L Normal 150.0-500.0 [facility] Comment on above: Performed By: #### 2 413282 #### [facility] [address] [place] [address] RBC (Bld) [#/Vol] 4.2 E12/L Low 4.3-5.9 [facility] Comment on above: Performed By: #### 2 850610 #### [facility] [address] [place] [address] WBC corrected for nucl RBC Auto (Bld) [#/Vol] 8.0 E9/L Normal 4.0-11.0 [facility] Comment on above: Performed By: #### 2 078344 #### [facility] [address] [place] [address] Free T4on 07-23-2024 Free T4 [Mass/Vol] 0.57 ng/dL Low 0.58-1.64 [facility] Comment on above: Performed By: #### 2 587902 #### [facility] [address] [place] [address] Lyteson 07-23-2024 Anion gap [Moles/Vol] 12 mmol/L Normal 6-16 [facility] Comment on above: Performed By: #### 2 479260 #### [facility] [address] [place] [address] Chloride [Moles/Vol] 105 mmol/L Normal 101-111 [facility] Comment on above: Performed By: #### 2 979937 #### [facility] [address] [place] [address] CO2 [Moles/Vol] 24 mmol/L Normal 21-31 [facility] Comment on above: Performed By: #### 2 896040 #### [facility] [address] [place] [address] Potassium [Moles/Vol] 3.5 mmol/L Normal 3.5-5.3 [facility] Comment on above: Performed By: #### 2 759968 #### [facility] [address] [place] [address] Sodium [Moles/Vol] 137 mmol/L Normal 135-145 [facility] Comment on above: Performed By: #### 2 213423 #### [facility] [address] [place] [address] TSHon 07-23-2024 TSH Qn 2.26 m[IU]/L Normal 0.34-5.60 [facility] Comment on above: Performed By: #### 2 999713 #### [facility] [address] [place] [address] CMPon 06-25-2024 Albumin [Mass/Vol] 3.6 g/dL Normal 3.3-5.0 [facility] Comment on above: Performed By: #### 2 163859 #### [facility] [address] [place] [address] Albumin/Globulin (S) [Mass conc ratio] 1.3 Normal 1.1-2.2 [facility] Comment on above: Performed By: #### 2 735019 #### [facility] [address] [place] [address] ALP [Catalytic activity/Vol] 63 Int._Unit/L Normal 21-98 [facility] Comment on above: Performed By: #### 2 606922 #### [facility] [address] [place] [address] ALT No additional P-5'-P [Catalytic activity/Vol] 13 Int._Unit/L Normal 6-46 [facility] Comment on above: Performed By: #### 2 382351 #### [facility] [address] [place] [address] Anion gap [Moles/Vol] 10 mmol/L Normal 6-16 [facility] Comment on above: Performed By: #### 2 376984 #### [facility] [address] [place] [address] AST [Catalytic activity/Vol] 12 Int._Unit/L Normal 5-43 [facility] Comment on above: Performed By: #### 2 391101 #### [facility] [address] [place] [address] Bilirubin [Mass/Vol] 0.7 mg/dL Normal 0.0-1.1 [facility] Comment on above: Performed By: #### 2 318185 #### [facility] [address] [place] [address] Calcium [Mass/Vol] 8.6 mg/dL Low 8.9-11.1 [facility] Comment on above: Performed By: #### 2 263736 #### [facility] [address] [place] [address] Chloride [Moles/Vol] 104 mmol/L Normal 101-111 [facility] Comment on above: Performed By: #### 2 953402 #### [facility] [address] [place] [address] CO2 [Moles/Vol] 25 mmol/L Normal 21-31 [facility] Comment on above: Performed By: #### 2 358216 #### [facility] [address] [place] [address] Creatinine [Mass/Vol] 0.4 mg/dL Low 0.5-1.3 [facility] Comment on above: Performed By: #### 2 907055 #### [facility] [address] [place] [address] Globulin (S) [Mass/Vol] 2.8 g/dL Normal 1.4-4.0 [facility] Comment on above: Performed By: #### 2 716777 #### [facility] [address] [place] [address] Glucose [Mass/Vol] 97 mg/dL Normal 55-199 [facility] Comment on above: Performed By: #### 2 242026 #### [facility] [address] [place] [address] Potassium [Moles/Vol] 3.4 mmol/L Low 3.5-5.3 [facility] Comment on above: Performed By: #### 2 769257 #### [facility] [address] [place] [address] Protein [Mass/Vol] 6.4 g/dL Normal 6.0-7.8 [facility] Comment on above: Performed By: #### 2 312588 #### [facility] [address] [place] [address] Sodium [Moles/Vol] 136 mmol/L Normal 135-145 [facility] Comment on above: Performed By: #### 2 010610 #### [facility] [address] [place] [address] Urea nitrogen [Mass/Vol] 8 mg/dL Normal 5-21 [facility] Comment on above: Performed By: #### 2 526137 #### [facility] [address] [place] [address] Urea nitrogen/Creatinin e [Mass ratio] 20 No Units Normal 10-20 [facility] Comment on above: Performed By: #### 2 797085 #### [facility] [address] [place] [address] TSHon 06-25-2024 TSH Qn 3.63 m[IU]/L Normal 0.34-5.60 [facility] Comment on above: Performed By: #### 2 764167 #### [facility] [address] [place] [address] eGFRon 06-25-2024 eGFR 142 mL/min/1.73 m2 Normal >=59 [facility] Comment on above: Order Comment: Order added by Discern Expert. Performed By: #### 1 [id number] #### [facility] [address] [place] [address] TSHon 05-31-2024 TSH Qn 1.99 m[IU]/L Normal 0.34-5.60 [facility] Comment on above: Performed By: #### 2 584231 #### [facility] [address] [place] [address] TSHon 05-01-2024 TSH Qn 1.54 m[IU]/L Normal 0.34-5.60 [facility] Comment on above: Performed By: #### 2 421279 #### [facility] [address] [place] [address] Consent for Treatmenton Consent for Treatment [id number] F Normal [facility] Physician Orderon 04-04-2024 Physician Order [id number]#1.00TI FF Normal [facility] TSHon 04-04-2024 TSH Qn 2.73 m[IU]/L Normal 0.34-5.60 [facility] Comment on above: Performed By: #### 2 027938 #### [facility] [address] [place] [address] XR Spine Cervical 4 or 5 Vie [...] mGy = . DAP = . Normal [facility] XR Spine Thoracic 3 Viewson 09-16-2023 [...] mGy = . DAP = . Normal [facility] Physician Orderon 09-15-2023 Physician Order [id number]#1.00T IFF Normal [facility] T4 Free SerPl-mCncon 023 Free T4 [Mass/Vol] 1.2 ng/dL Normal 0.9-1.7 [facility] Comment on above: Order Comment: Speci men Type: BLOOD SPECIMEN Ordering Facility: [facility] Address: [address] [place] [address] Performed By: #### 3 024-7, 3016-3 #### [facility] CLIA [id number] [address] [facility] [place] [address] [place] TSH SerPl-aCncon 08-18-2023 TSH Qn 2.280 m[IU]/L Normal 0.270-4.200 [facility] Comment on above: Order Comment: Speci men Type: BLOOD SPECIMEN Ordering Facility: [facility] Address: [address] [place] [address] Result Comment: If t he patient is , TSH reference range varies by gestational period: First Trimester (weeks 9-12): 0.180-2.990 mIU/L Second Trimester: 0.110-3.980 mIU/L Third Trimester: 0.480-4.710 mIU/L Noe Ramon et al. A Practical Approach for the Verifications and Determination of Site- and Trimester-Specific Reference Intervals for Thyroid Function tests in . Thyroid, 2019:29:3:412-420. Gregor Banegas et al. 2017 Guidelines of the [employer] for the Diagnosis and Management of Thyroid Disease during and the . Thyroid, 2017:27:3:315-389. Performed By: #### 3 024-7, 3016-3 #### [facility] CLIA [id number] [address] [facility] [id number] [place] [address] [place] Consent for Treatmenton Consent for Treatment [id number]#1.00CD: [address] [facility] US Renalon 07-08-2023 US Renal Exam [...] M.D. Transcribed by: MORENO Technologist: EMILY Chung [facility] XR Abdomen 1 Viewon 07-08-20 XR [...] Héctor Mendoza M.D. Transcribed by: MORENO Technologist: JOANEN Technical Comments Radiation Dose: Ka,r in mGy = . DAP = . Normal [facility] Ambulatory Visit Summaryon 0 06-21-2023 Ambulatory Visit Summary EMMY DALE :2000 Visit Date:06/21/2023 Ambulatory Visit Instructions Your Diagnosis Urinary crystals Recurrent UTI Urethral stricture Gross hematuria Tests Performed Urnls Dip Stick Auto w/o Microscopy POC 79151 Your Care Team Attending Physician - SOBEIDA [...] Schedule the Following Appointments Follow Up with DONNA FORD, YANY LAURENT When: Comments: will call pt. Where: [address] [place] [address] You Need to Complete the Following US [...] No, Kidney stones, pp_set_radiology_subspec ialty, [place] Medications What How Much When Instructions Unchanged busPIRone (busPIRone 10 mg Tab) 2 times a day Contact prescribing physician if questions or concerns Unchanged levothyroxine (Synthroid 25 mcg(0.025 mg) Tab) Every day Contact prescribing physician if questions or concerns Test Results Urnls Dip Stick Auto w/o Microscopy POC 95367 (06/21/2023) Bilirubin Urine Dipstick - Negative Blood Urine Dipstick - Negative Glucose Urine Dipstick - Negative Ketones Urine Dipstick - Negative Leukocytes Urine Dipstick - Negative Nitrite Urine Dipstick - Negative Protein Urine Dipstick - Negative Specific Forest Urine Dipstick - 1.010 Urine Appearance Urine [...] ? 8 oz (237 mL) of milk, zmjvirw-lvchdmnoqoym-ayz ry milk, and calcium-fortifiedfruit juice. Calcium-fortified means [...] wheat cereals. (more content not included)... Normal [facility] Patient Educationon 06-21-20 Patient Education Nephrology [...] ? 8 oz (237 mL) of milk, tothpgh-qwupodqkkzee-pji ry milk, and calcium-fortifiedfruit juice. Calcium-fortified means [...] Spinach (cooked), rhubarb, beets, sweet potatoes, and Bangladeshi chard. ? Peanuts. ? Potato chips, kazakh fries, and baked potatoes with skin on. ? Nuts and nut products. ? Chocolate. ? If you regularly take a diuretic medicine, make sure to eat at least 1 or 2 servings of fruits or vegetables that are high in potassium each day. These include: ? Avocado. ? Banana. ? [place], prune, carrot, or tomato juice. ? Baked [...] fish oil, or vitamin B6. ? Take dado-mjw-zmnbotg and prescription medicines only as told by your health care provider. These include supplements. What foods should I limit? Limit your in (more content not included)... Normal [facility] Urology Office/Clinic Noteon 06-21-2023 Urology Office/Clinic [...] pass. Will send CORDELIA and KUB to [facility] to see if any persistent hydro/any remaining [...] Urnls Dip Stick Auto w/o Microscopy POC 45163 4. Gross hematuria (R31.0: Gross hematuria) CORDELIA [...] When Contact Information SOBEIDA THOMPSON PA-C, URL [address] [place] [address] Additional Instructions: will call pt. Patient Education [...] History Cystour (more content not included)... Normal [facility] Comment on above: Result Comment: Elec tronically Signed By: SOBEIDA THOMPSON PA-C\.br\Date and Time Signed: 06/21/23 12:44 EDT\.br\Electronically Co-Signed By: Laura Lou\.br\Date and Time Co-Signed: 06/21/23 12:25 EDT PAP [id number] 06-07-2023 Cytology report Cyto stain Doc (Cvx/Vag) Note Invalid Interpretation Code [facility] Comment on above: Result Comment: TEST S RESULT FLAG UNITS REF RANGE LAB Clinician Provided Cytology Information Source.............Endocervix No. of containers..01 ThinPrep Vial DIAGNOSIS: 01 NEGATIVE FOR INTRAEPITHELIAL LESION OR MALIGNANCY. Specimen adequacy: 01 Satisfactory for evaluation. Endocervical and/or squamous metaplastic cells (endocervical component) are present. Performed by: 01 Lali Bolaños Community Affairs Manager ([facility]) . 01 Note: Note 01 The Pap [...] <-Panic Low,>-Panic High,A-Abnormal,AA-Critical Abnormal Performed at: [address] [facility] [address] [place] [address] Lisa Ellington MD, Performed at: [facility] [address] [facility] [place] [id number] MD Chandana Gonzalez Performed By: #### 3 [id number] ####[address] [place] [address] Consent for Treatmenton Consent for Treatment [id number]: 127 Normal [facility] Heart and Vascular Office/Cl in Noteon 06-01-2023 Heart and Vascular Office/Clinic Note [...] but unfortunately she was called by the survey research manager and told that it was not working. [...] her Sy (more content not included)... Normal [facility] Comment on above: Result Comment: Elec tronically Signed By: SAMUEL VELAZQUEZ, Benjamin Le.br\Date and Time Signed: 06/01/23 14:25 EDT PAP [id number] 06-01-2023 Collection Technique BRUSH-SPATULA [facility] Comment on above: Performed By: #### 3 [id number] ####[facility] [address] [place] [address] Gynecological Body Site ENDOCERVIX [facility] Comment on above: Performed By: #### 3 [id number] ####[facility] [address] [place] [address] Physician Orderon 06-01-2023 Physician Order [id number]#[id number] :127 [facility] Physician Order [id number]#1.00CD: 127 [facility] C Urineon 05-27-2023 Bacteria identified Cx Nom (U) Microbiology PROCEDURE: Urine Culture [R1] SOURCE: U CleanCatch BODY SITE: COLLECTED DATE/TIME: 05/25/2023 15:25 EDT RECEIVED DATE/TIME: 05/25/2023 16:39 EDT START DATE/TIME: 05/25/2023 16:39 EDT FREE TEXT SOURCE: LYNDON DALAL CNP, CNP, DANA FINAL REPORTS Final Report [] Verified Date/Time: [...] Locations R1: This test was performed at: [facility], [address] [place] [address], [phone] , [place], [facility] Comment on above: Performed By: #### 2 [id number] ####[facility] [address] [place] [address] T4 Free SerPl-ncon 023 Free T4 [Mass/Vol] 1.2 ng/dL Normal 0.9-1.7 [facility] Comment on above: Order Comment: Specolivier florez Type: BLOOD SPECIMEN Ordering Facility: [facility] Address: [address] [place] [address] Performed By: #### 3 024-7, 3016-3 #### [facility] CLIA [id number] [address] [place] [address] [place] TSH SerPl-aCncon 05-26-2023 TSH Qn 2.260 m[IU]/L Normal 0.270-4.200 [facility] Comment on above: Order Comment: Speci vikki Type: BLOOD SPECIMEN Ordering Facility: [facility] Address: [address] [place] [address] Result Comment: If t he patient is , TSH reference range varies by gestational period: First Trimester (weeks 9-12): 0.180-2.990 mIU/L Second Trimester: 0.110-3.980 mIU/L Third Trimester: 0.480-4.710 mIU/L Noe Ramon et al. A Practical Approach for the Verifications and Determination of Site- and Trimester-Specific Reference Intervals for Thyroid Function tests in . Thyroid, 2019:29:3:412-420. Gregor E, et al. 2017 Guidelines of the Stateless Thyroid Association for the Diagnosis and Management of Thyroid Disease during and the . Thyroid, 2017:27:3:315-389. Performed By: #### 3 024-7, 6-3 #### [facility] CLIA [id number] [address] [place] [address] [place] Consent for Treatmenton 05-01 Consent for Treatment [id number]#1.00CD: [address] [facility] Physician Orderon 05-25-2023 Physician Order [id number]#1.00CD:[address] [facility] Urinalysison 05-25-2023 Bacteria LM Ql (Urine sed) 2+ /HPF Abnormal Trace [facility] Comment on above: Performed By: #### 1 [id number] ####[facility] [address] [place] [address] Bilirubin Ql (U) Negative Normal Negative [facility] Comment on above: Performed By: #### 1 [id number] ####[facility] [address] [place] [address] Clarity (U) SL CLOUDY Abnormal Clear [facility] Comment on above: Performed By: #### 1 [id number] ####[place] [address] [place] [address] Color (U) YELLOW Normal Yellow [facility] Comment on above: Performed By: #### 1 [id number] ####[facility] [address] [place] [address] Crystals LM Ql (Urine sed) Present Normal [facility] Comment on above: Performed By: #### 1 [id number] ####[facility] [address] [place] [address] Epithelial cells.squamous LM.HPF (Urine sed) [#/Area] 0-2 Normal 0-2 [facility] Comment on above: Performed By: #### 1 [id number] ####[facility] [address] [place] [address] Glucose Test strip (U) [Mass/Vol] Negative Normal Negative [facility] Comment on above: Performed By: #### 1 [id number] ####[facility] [address] [place] [address] Hemoglobin Ql (U) 2+ Abnormal Negative [facility] Comment on above: Performed By: #### 1 [id number] ####[facility] [address] [place] [address] Ketones (U) [Mass/Vol] Negative Normal Negative [facility] Comment on above: Performed By: #### 1 [id number] ####[address] [address] [place].plasma/Lit hium.RBC (Bld) [Mass ratio] 0-3 Normal 0-3 [facility] Comment on above: Performed By: #### 1 [id number] ####[address] [address] Mucus Ql (Urine sed) TRACE Normal [facility] Comment on above: Performed By: #### 1 [id number] ####[address] [address] Nitrite Ql (U) Positive Abnormal Negative [facility] Comment on above: Performed By: #### 1 [id number] ####[address] [address] pH (U) 6.0 [pH] Invalid Interpretation Code 5.0-9.0 [facility] Comment on above: Performed By: #### 1 [id number] ####[address] [address] Protein (U) [Mass/Vol] Negative Normal Negative [facility] Comment on above: Performed By: #### 1 [id number] ####[address] [address] Specific gravity (U) [Rel density] 1.010 Invalid Interpretation Code 1.005-1.030 [facility] Comment on above: Performed By: #### 1 [id number] ####[address] [address] Type of Urine collection method Clean Catch Normal [facility] Comment on above: Performed By: #### 1 [id number] ####[address] [address] Urobilinogen Qn (U) 0.2 {Catarino'U}/dL Normal 0.0-1.0 [facility] Comment on above: Performed By: #### 1 [id number] ####[address] [address] WBC Auto Ql (U) 1+ Abnormal Negative [facility] Comment on above: Performed By: #### 1 [id number] ####[facility] [address] [place] [address] WBC LM.HPF (Urine sed) [#/Area] 26-30 Abnormal 0-5 [facility] Comment on above: Performed By: #### 1 [id number] ####[facility] [address] [place] [address] Consent for Treatmenton 04-30 Consent for Treatment [id number]#1.00CD: [address] [facility] Consent for Treatmenton Consent for Treatment [id number]: [address] [facility] Heart and Vascular Office/Cl inic Noteon [...] 1 month. (more content not included)... Normal [facility] Comment on above: Result Comment: Elec tronically Signed By: Samuel VELAZQUEZ, Benjamin Lopez\.br\Date and Time Signed: 05/05/23 16:11 EDT Physician Orderon 05-05-2023 Physician Order [id number]#1.00CD :[address] [facility] Stress EKG Tracingson 2022 Stress EKG Tracings [id number]#1.00CD: 127 [facility] Consent for Treatmenton 03-31 Consent for Treatment [id number]#1.00CD: 127 [facility] T3Free SerPl-mCncon 04-06-20 23 Free T3 [Mass/Vol] 3.3 pg/mL Normal 2.3-4.1 [facility] Comment on above: Order Comment: Speci men Type: BLOOD SPECIMEN Ordering Facility: [facility] Address: [address] [place] [address] Performed By: #### 3 051-0, 3024-7, 3016-3 #### [facility] CLIA [id number] [address] [place] [address] STATES [place] S[place] T4 Free SerPl-mCncon 023 Free T4 [Mass/Vol] 1.4 ng/dL Normal 0.9-1.7 [facility] Comment on above: Order Comment: Speci men Type: BLOOD SPECIMEN Ordering Facility: [facility] Address: [address] [place] [address] Performed By: #### 3 051-0, 3024-7, 6-3 #### [facility] CLIA [id number] [address] [place] [address] OF SID THYROGLOBULIN ABon Thyroglobulin Ab Qn 1.8 [IU]/mL Normal <4.0 [facility] Comment on above: Order Comment: Speci [facility] Type: BLOOD SPECIMEN Ordering Facility: [facility] Address: [address] [place] [address] Result Comment: The Thyroglobulin Antibody test was performed using the [employer] Unicel DXI paramagnetic particle chemiluminescent immunoassay method. Results obtained with different assay methods or kits cannot be used interchangeably. Performed By: #### T JASON #### [facility] CLIA [id number] [address] [place] [address] OF SID THYROID PEROXIDASE ANTIBODY BLOODon 04-06-2023 [place] Qn 4572.0 [IU]/mL High <5.6 [facility] Comment on above: Order Comment: Rozina [facility] Type: BLOOD SPECIMEN Ordering Facility: [facility] Address: [address] [place] [address] Result Comment: Thyr oid Peroxidase Antibody test is used as an aid in diagnosis of autoimmune thyroid disease. Clinical correlation is required. Performed By: #### M ICRO #### [facility] CLIA [id number] [address] [place] [address] [place] TSH SerPl-aCncon 04-06-2023 TSH Qn 6.050 m[IU]/L High 0.270-4.200 [facility] Comment on above: Order Comment: Speci men Type: BLOOD SPECIMENOrdering Facility: [facility] Address: [address] [place] [address] Result Comment: If t he patient is , TSH reference range varies by gestational period: First Trimester (weeks 9-12): 0.180-2.990 mIU/L Second Trimester: 0.110-3.980 mIU/L Third Trimester: 0.480-4.710 mIU/L Noe Ramon et al. A Practical Approach for the Verifications and Determination of Site- and Trimester-Specific Reference Intervals for Thyroid Function tests in . Thyroid, 2019:29:3:412-420. Gregor Banegas, et al. 2017 Guidelines of the Stateless Thyroid Association for the Diagnosis and Management of Thyroid Disease during and the . Thyroid, 2017:27:3:315-389. Performed By: #### 3 051-0, 3024-7, 3016-3 ####[facility] [id number] [place] [address] [place] CNOVon 03-08-2023 CNOV Office Visit (ENDOLN ) -------- EMMY DALE ([id number]) 1 F Date Time Provider Department 03/08/23 [...] involuntary motions. (more content not included)... Normal [facility] Vital Signs Date Time Vital Sign Value Performing Clinician Facility 08-14-2024 09:36-0400 Body weight 101.61 kg Dami Ajith DO Work Phone: [facility] 08-14-2024 09:36-0400 Diastolic blood pressure 70 mm[Hg] Dami Ajith DO Work Phone: [facility] 08-14-2024 09:36-0400 Systolic blood pressure 120 mm[Hg] Dami Ajith DO Work Phone: [facility] 07-31-2024 08:55-0400 Body weight 99.34 kg Dami Ajith DO Work Phone: [facility] 07-31-2024 08:55-0400 Diastolic blood pressure 68 mm[Hg] Dami Ajith DO Work Phone: [facility] 07-31-2024 08:55-0400 Systolic blood pressure 112 mm[Hg] Dami Ajith DO Work Phone: [facility] 09-15-2023 13:30-0500 Body height 162.56 cm [employer] Other [employer] Other 09-15-2023 13:30-0500 Body mass index (BMI) [Ratio] 30.21 kg/m2 [employer] Other [employer] Other 09-15-2023 13:30-0500 Body weight 79.83 kg LyndonREH Other [employer] Other 09-15-2023 13:30-0500 Diastolic blood pressure 68 mm[Hg] Lyndon [employer] Other [employer] Other 09-15-2023 13:30-0500 Respiratory rate 18 /min [employer] Other [employer] Other 09-15-2023 13:30-0500 SaO2% (BldA) [Mass fraction] 99 % Lyndon Easterwood Other [employer] Other 09-15-2023 13:30-0500 Systolic blood pressure 118 mm[Hg] Lyndon Easterwood Other [employer] Other 07-12-2023 09:15-0400 Body height 162.56 cm Lyndon Easterwood Other [employer] Other 07-12-2023 09:15-0400 Body mass index (BMI) [Ratio] 29.86 kg/m2 Lyndon Easterwood Other [employer] Other 07-12-2023 09:15-0400 Body temperature 98.6 [degF] Lyndon Easterwood Other [employer] Other 07-12-2023 09:15-0400 Body weight 78.93 kg Lyndon Joseerwood Other [employer] Other 07-12-2023 09:15-0400 Diastolic blood pressure 70 mm[Hg] Lyndon Easterwood Other [employer] Other 07-12-2023 09:15-0400 Respiratory rate 20 /min Lyndon Easterwood Other [employer] Other 07-12-2023 09:15-0400 SaO2% (BldA) [Mass fraction] 98 % Lyndon Easterwood Other [employer] Other 07-12-2023 09:15-0400 Systolic blood pressure 112 mm[Hg] Lyndon Easterwood Other [employer] Other 05-25-2023 17:30-0400 Body height 162.56 cm Lyndonjessica Garciaerwood Other [employer] Other 05-25-2023 17:30-0400 Body mass index (BMI) [Ratio] 30.04 kg/m2 Lyndon Easterwood Other [employer] Other 05-25-2023 17:30-0400 Body temperature 98.2 [degF] Lyndon Joseerwood Other [employer] Other 05-25-2023 17:30-0400 Body weight 79.38 kg Lyndon Garciaerrick Other [employer] Other 05-25-2023 17:30-0400 Diastolic blood pressure 72 mm[Hg] Lyndon Easterwood Other [employer] Other 05-25-2023 17:30-0400 Respiratory rate 20 /min Lyndon Joseerrick Other [employer] Other 05-25-2023 17:30-0400 SaO2% (BldA) [Mass fraction] 99 % Lyndon Easterwood Other [employer] Other 05-25-2023 17:30-0400 Systolic blood pressure 110 mm[Hg] Lyndon Easterwood Other [employer] Other 03-08-2023 16:13-0400 Body weight 83.92 kg Martina Rodriguez MD, PhD Work Phone: [facility] 03-08-2023 16:13-0400 Diastolic blood pressure 76 mm[Hg] Martina Rodriguez MD, PhD Work Phone: [facility] 03-08-2023 16:13-0400 Systolic blood pressure 116 mm[Hg] Martina Rodriguez MD, PhD Work Phone: [facility] 08-05-2022 16:00-0400 Body height 162.56 cm Lyndon Easterwood Other [employer] Other 08-05-2022 16:00-0400 Body mass index (BMI) [Ratio] 32.78 kg/m2 Lyndon Easterwood Other [employer] Other 08-05-2022 16:00-0400 Body temperature 98 [degF] Lyndon Easterwood Other [employer] Other 08-05-2022 16:00-0400 Body weight 86.64 kg Lyndon Easterwood Other [employer] Other 08-05-2022 16:00-0400 Diastolic blood pressure 76 mm[Hg] Lyndon Easterwood Other [employer] Other 08-05-2022 16:00-0400 Respiratory rate 20 /min Lyndon Easterwood Other [employer] Other 08-05-2022 16:00-0400 SaO2% (BldA) [Mass fraction] 99 % Lyndon Easterwood Other [employer] Other 08-05-2022 16:00-0400 Systolic blood pressure 122 mm[Hg] Lyndon Easterwood Other [employer] Other Encounters Encounter Date Encounter Type Care Provider Facility Start: 08-14-2024 End: 08-14-2024 Maria D Lomax Ajith DO Work Phone: [facility] Start: 08-14-2024 End: 08-14-2024 Bamboo flowsheet Dami Ajith DO Work Phone: [facility] Start: 08-14-2024 End: 08-14-2024 flow sheet Dami Ajith DO Work Phone: [facility] Comment on above: 33 weeks gestation o f ; Third trimester Start: 08-14-2024 End: 08-14-2024 ambulatory DAMI AJITH Not Available Start: 07-31-2024 End: 07-31-2024 Bamboo flowsheet Dami [...] 07-23-2024 End: 07-23-2024 ambulatory Dami R AJITH Facility:[facility] Start: 07-19-2024 End: 07-19-2024 ambulatory LELE MELO Not Available Start: 07-05-2024 End: 07-05-2024 ambulatory DAMI AJITH Not Available Start: 06-25-2024 End: 06-25-2024 ambulatory DAMI AJITH Not Available Start: 06-25-2024 End: 06-25-2024 ambulatory LELE L MELO Facility:[facility] Start: 06-12-2024 End: 06-12-2024 ambulatory DAMI R AJITH [facility] Start: 06-04-2024 End: 06-04-2024 ambulatory LELE MELO Not Available Start: 05-14-2024 End: 05-14-2024 ambulatory DAMI R AJITH [facility] Start: 05-08-2024 End: 05-08-2024 ambulatory DAMI AJITH Not Available Start: 04-09-2024 End: 04-09-2024 ambulatory DAMI AJITH Not Available Start: 04-04-2024 ambulatory Dami R AJITH Facility: [facility] Start: 03-12-2024 End: 03-12-2024 ambulatory DAMI AJITH Not Available Start: 02-24-2024 End: 02-24-2024 ambulatory DAMI AJITH Not Available Start: 12-04-2023 End: 12-04-2023 ambulatory Lyndon Dalal Other [employer] Other Start: 12-04-2023 Encounter by [employer] Lyndon Dalal [facility] Start: 11-05-2023 End: 11-05-2023 ambulatory Lyndon Dalal Other [employer] Other Start: 11-05-2023 Encounter by [employer] Lyndon Fallwood [facility] Start: 10-25-2023 End: 10-25-2023 ambulatory Lyndon Dalal Facility:[facility] Start: 10-10-2023 End: 10-10-2023 ambulatory Lyndon Dalal Other [employer] Other Start: 10-10-2023 Telephone encounter Lyndon Dalal [facility] Start: 09-26-2023 End: 09-26-2023 ambulatory Lyndon Fallwood Other [employer] Other Start: 09-26-2023 Telephone encounter Lyndon Fallwood [facility] Start: 09-18-2023 End: 09-18-2023 ambulatory Lyndonjessica Fallwood Other [employer] Other Start: 09-18-2023 Telephone encounter Lyndon Fallwood [facility] Start: 09-15-2023 End: 09-15-2023 ambulatory LYNDON JOSEERWOOD [facility] [employer] Other Start: 09-15-2023 Office outpatient visit 25 minutes Lyndon [facility] Start: 08-18-2023 End: 08-18-2023 ambulatory [facility] Facility:[facility] Start: 08-05-2023 Get Medical Advice Martina Rodriguez MD, PhD Work Phone: Endocrinology Comment on above: lab orders Start: 07-22-2023 End: 07-22-2023 [facility] [employer] Other Start: 07-22-[facility]23 [facility] [employer] Start: 07-12-2023 End: 07-12-2023 ambulatory [facility] Other [employer] Other Start: 07-12-2023 [facility] Start: 07-12-2023 Telephone encounter Lyndon [facility] Start: 07-08-2023 End: 07-08-2023 ambulatory SOBEIDA THOMPSON Facility:[facility] Start: 06-27-2023 End: 06-27-2023 ambulatory [facility] Other [employer] Other Start: 06-27-2023 [facility] Start: 06-21-2023 End: 06-21-2023 ambulatory SOBEIDA THOMPSON Facility:[facility] Start: 06-01-2023 End: 06-01-2023 ambulatory Benjamin BAKER Facility:[facility] Start: 06-01-2023 End: 06-01-2023 ambulatory Bill Kat Facility:[facility] Start: 05-26-2023 End: 05-26-2023 ambulatory [facility] Facility:[facility] Start: 05-25-2023 End: 05-25-2023 ambulatory [facility] [employer] Other Start: 05-25-2023 Office outpatient visit 15 minutes Lyndon Dalal [facility] Start: 05-17-2023 End: 05-17-2023 ambulatory Benjamin BAKER Facility:[facility] Start: 05-05-2023 End: 05-05-2023 ambulatory Benjamin BAKER Facility:[facility] Start: 04-15-2023 End: 04-15-2023 ambulatory Benjamin BAKER Facility:[facility] Start: 04-06-2023 End: 04-06-2023 ambulatory MARTINA RODRIGUEZ Facility:[facility] Start: 03-08-2023 End: 03-08-2023 ambulatory MARTINA RODRIGUEZ Facility:[facility] Start: 03-08-2023 End: 03-08-2023 Patient encounter procedure Martina Rodriguez MD, PhD Work Phone: Endocrinology Comment on above: Vikki's thyroidi tis (Primary Dx) Start: 02-28-2023 End: 02-28-2023 ambulatory Lyndon Dalal Other [employer] Other Start: 02-28-2023 Telephone encounter Lyndon Dalal [facility] Start: 02-21-2023 End: 02-21-2023 ambulatory [employer] M[employer]PER[employer] Lyndon Fallrick Work Phone: [facility] Work Phone: Start: 02-21-2023 End: 02-21-2023 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 Lyndon Joseradamesrick Work Phone: [facility] [place] Work Phone: Start: 08-09-2022 End: 08-09-2022 ambulatory Lyndon Joseelham Other [employer] Other Start: 08-09-2022 Telephone encounter Lyndon Joseelham [facility] Start: 08-05-2022 End: 08-06-2022 Emergency department patient visit Lyndon Dalal Facility:[facility] Start: 08-05-2022 End: 08-05-2022 ambulatory Lyndon Dalal Other [facility] [employer] Other Start: 08-05-2022 Office outpatient visit 40 minutes Lyndon Dalal [facility] [place] Procedures Date Procedure Procedure Detail Performing Clinician Start: 08-14-2024 Urnls dip stick/tabl et rgnt non-auto w/o micrscp Dami Ajith DO Work Phone: Start: 07-31-2024 Urnls dip stick/tabl et rgnt non-auto w/o micrscp Dami Ajith DO Work Phone: Plan of Treatment Date Care Activity Detail Author Start: 09-17-2024 End: 09-17-2024 Patient encounter procedure 09/17/2024 8:40 AM EST Routine [facility] [address] [place] [id number] Dami Canseco, DO [address] [place] [address] [facility] Start: 09-10-2024 End: 09-10-2024 Patient encounter procedure 09/10/2024 8:40 AM EST Routine [facility] [address] [place] [phone] Dami Canseco, DO [address] [place] [address] [facility] Start: 09-03-2024 End: 09-03-2024 Patient encounter procedure 09/03/2024 8:40 AM EST Routine [facility] [address] [place] [phone] Dami Canseco, DO [address] [place] [address] [facility] Start: 08-27-2024 End: 08-27-2024 Patient encounter procedure 08/27/2024 8:40 AM EDT Routine [facility] [address] [place] [phone] Dami Canseco, DO [address] [place] [address] [facility] Start: 08-14-2024 End: 08-14-2024 Patient encounter procedure [facility] Comment on above: Arrived Start: 08-06-2024 End: 08-06-2024 Professional / ancillary services management 08/06/2024 8:00 AM EDT Ancillary Procedure [facility] [address] [place] [phone] [facility] Start: 07-31-2024 End: 07-31-2024 Patient encounter procedure 07/31/2024 8:50 AM EDT Routine [facility] [address] [facility] [place] [phone] Dami Canseco, DO [address] [place] [address] Arrived [facility] Comment on above: Arrived Start: 07-01-2024 Influenza vaccination Influenza Vacc ine (#1) [facility] Start: 08-08-2023 End: 10-08-2023 Thyrotropin [Units/volume] in Serum or Plasma TSH BLD Lab Routine Vikki's thyroiditis Expected: 08/08/2023, Expires: 10/08/2023 [facility] Work Phone: Comment on above: Expected: 08/08/2023 , Expires: 10/08/2023 Start: 08-08-2023 End: 10-08-2023 Thyroxine (T4) free [Mass/volume] in Serum or Plasma T4 FREE/FREE THYROX Lab Routine Vikki's thyroiditis Expected: 08/08/2023, Expires: 10/08/2023 [facility] Work Phone: Comment on above: Expected: 08/08/2023 , Expires: 10/08/2023 Start: 07-07-2023 Urine microalbumin profile [facility] Start: 07-01-2023 Covid-19 Vaccine () Covid-19 Vaccine () [facility] Start: 07-01-2023 Influenza vaccination Influenza Vacc ine (#1) [facility] Start: 03-31-2023 End: 05-31-2023 Thyroglobulin Ab [Units/volume] in Serum or Plasma THYROGLOBULIN AB Lab Routine Vikki's thyroiditis Expected: 03/31/2023, Expires: 05/31/2023 [facility] Work Phone: Comment on above: Expected: 03/31/2023 , Expires: 05/31/2023 Start: 03-31-2023 End: 05-31-2023 THYROID PEROXIDASE ANTIBODY BLOOD THYROID PEROXIDASE ANTIBODY BLOOD Lab Routine Vikki's thyroiditis Expected: 03/31/2023, Expires: 05/31/2023 [facility] Work Phone: Comment on above: Expected: 03/31/2023 , Expires: 05/31/2023 Start: 03-31-2023 End: 05-31-2023 Thyrotropin [Units/volume] in Serum or Plasma TSH BLD Lab Routine Vikki's thyroiditis Expected: 03/31/2023, Expires: 05/31/2023 [facility] Work Phone: Comment on above: Expected: 03/31/2023 , Expires: 05/31/2023 Start: 03-31-2023 End: 05-31-2023 Thyroxine (T4) free [Mass/volume] in Serum or Plasma T4 FREE/FREE THYROX Lab Routine Vikki's thyroiditis Expected: 03/31/2023, Expires: 05/31/2023 [facility] Work Phone: Comment on above: Expected: 03/31/2023 , Expires: 05/31/2023 Start: 03-31-2023 End: 05-31-2023 Triiodothyronine (T3) Free [Mass/volume] in Serum or Plasma T3 FREE BLD Lab Routine Vikki's thyroiditis Expected: 03/31/2023, Expires: 05/31/2023 [facility] Work Phone: Comment on above: Expected: 03/31/2023 , Expires: 05/31/2023 Start: 10-31-2022 DEPRESSION ASSESSMENT DEPRESSION ASS ESSMENT [facility] Start: 2021 PAP TESTING PAP TESTING [facility] Start: 02-02-2021 COVID-19 VACCINE (3 - Booster for Pfizer series) COVID-19 VACCINE (3 - Booster for Pfizer series) [facility] Start: 2018 CHLAMYDIA SCREENING (18-24) CHLAMYDIA SCREENING (18-24) [facility] Start: 2018 GC (GONORRHEA) SCREE MICHELLE (18-24) GC (GONORRHEA) SCREENING (18-24) [facility] Start: 2018 HEPATITIS C SCREENING HEPATITIS C SC REENING [facility] Start: 2018 HIV SCREENING HIV SCREENING [facility] Start: 2016 Meningococcal B Vacc ine: Consider Based On Risk (2 of 2 - Risk Bexsero 2-dose series) Meningococcal B Vaccine: Consider Based On Risk (2 of 2 - Risk Bexsero 2-dose series) [facility] Start: 2016 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 (2 of 2 - Risk Bexsero 2-dose series) MENINGOCOCCAL B: Consider based on risk (2 of 2 - Risk Bexsero 2-dose series) [facility] Start: 2014 PEDS TO ADULT TRANSI TION ANNUAL ASSESSMENT PEDS TO ADULT TRANSITION ANNUAL ASSESSMENT [facility] Start: 2012 PEDS TO ADULT TRANSI TION INITIAL DISCUSSION PEDS TO ADULT TRANSITION INITIAL DISCUSSION [facility] Immunizations Immunization Date Immunization Notes Care Provider Milady lewis 07-19-2022 influenza, injectabl e, quadrivalent, contains preservative Lyndon Dalal Other [employer] Other 07-19-2022 influenza virus vaccine, unspecified formulation Martina Rodriguez MD, PhD Work Phone: [facility] 12-08-2020 Do not use COVID-19 Pfizer 2 dose Lyndon Easterwood Other [employer] Other 11-17-2020 Do not use COVID-19 Pfizer 2 dose Lyndon Easterwood Other [employer] Other 07-31-2020 influenza, injectabl e, quadrivalent, contains preservative Lyndon Easterwood Other [employer] Other 10-18-2016 influenza, injectabl e, quadrivalent, contains preservative Martina Rodriguez MD, PhD Work Phone: [facility] 08-04-2015 influenza, injectabl e, quadrivalent, contains preservative Martina Rodriguez MD, PhD Work Phone: [facility] 04-23-2014 human papilloma viru s vaccine, quadrivalent Martina Rodriguez MD, PhD Work Phone: [facility] 09-29-2013 human papilloma viru s vaccine, quadrivalent Martina Rodriguez MD, PhD Work Phone: [facility] 07-07-2013 human papilloma viru s vaccine, quadrivalent Martina Rodriguez MD, PhD Work Phone: [facility] 07-07-2013 meningococcal polysaccharide (groups A, C, Y and W-135) diphtheria toxoid conjugate vaccine (MCV4P) Martina Rodriguez MD, PhD Work Phone: [facility] Work Phone: 07-07-2013 tetanus toxoid, redu ollie diphtheria toxoid, and acellular pertussis vaccine, adsorbed Martina Rodriguez MD, PhD Work Phone: [facility] 08-04-2009 influenza virus vaccine, unspecified formulation Martina Rodriguez MD, PhD Work Phone: [facility] 07-05-2008 hepatitis A vaccine, unspecified formulation Martina Rodriguez MD, PhD Work Phone: [facility] 09-09-2007 influenza virus vaccine, unspecified formulation Martina Rodriguez MD, PhD Work Phone: [facility] Work Phone: 06-19-2007 hepatitis A vaccine, unspecified formulation Martina Rodriguez MD, PhD Work Phone: [facility] 06-19-2007 varicella virus vaccine Parth Rodriguez MD, PhD Work Phone: [facility] 09-14-2006 influenza virus vaccine, unspecified formulation Martina Rodriguez MD, PhD Work Phone: [facility] 05-13-2006 diphtheria, tetanus toxoids and acellular pertussis vaccine Martina Rodriguez MD, PhD Work Phone: [facility] Work Phone: 05-13-2006 measles, mumps and rubella virus vaccine Martina Rodriguez MD, PhD Work Phone: [facility] Work Phone: 05-13-2006 poliovirus vaccine, inactivated Martina Rodriguez MD, PhD Work Phone: [facility] Work Phone: 05-13-2006 varicella virus vaccine Parth Rodriguez MD, PhD Work Phone: [facility] Work Phone: 07-26-2005 influenza virus vaccine, unspecified formulation Martina Rodriguez MD, PhD Work Phone: [facility] Work Phone: 07-30-2004 influenza virus vaccine, unspecified formulation Martina Rodriguez MD, PhD Work Phone: [facility] Work Phone: 06-30-2002 diphtheria, tetanus toxoids and acellular pertussis vaccine Martina Rodriguez MD, PhD Work Phone: [facility] Work Phone: 06-30-2002 poliovirus vaccine, inactivated Martina Rodriguez MD, PhD Work Phone: [facility] Work Phone: 04-04-2002 haemophilus influenz ae type b vaccine, HbOC conjugate Martina Rodriguez MD, PhD Work Phone: [facility] Work Phone: 04-04-2002 measles, mumps and rubella virus vaccine Martina Rodriguez MD, PhD Work Phone: [facility] Work Phone: 12-16-2001 hepatitis B vaccine, pediatric or pediatric/adolescent dosage Martina Rodriguez MD, PhD Work Phone: [facility] Work Phone: 12-16-2001 pneumococcal conjuga te vaccine, 7 david Rodriguez MD, PhD Work Phone: [facility] Work Phone: 09-30-2001 pneumococcal conjuga te vaccine, Shaq Rodriguez MD, PhD Work Phone: [facility] Work Phone: 06-24-2001 diphtheria, tetanus toxoids and acellular pertussis vaccine Martina Rodriguez MD, PhD Work Phone: [facility] Work Phone: 06-24-2001 haemophilus influenz ae type b vaccine, HbOC conjugate Martina Rodriguez MD, PhD Work Phone: [facility] Work Phone: 06-24-2001 pneumococcal conjuga te vaccine, Shaq valent Martina Rodriguez MD, PhD Work Phone: [facility] Work Phone: 04-12-2001 diphtheria, tetanus toxoids and acellular pertussis vaccine Martina Rodriguez MD, PhD Work Phone: [facility] Work Phone: 04-12-2001 haemophilus influenz ae type b vaccine, HbOC conjugate Martina Rodriguez MD, PhD Work Phone: [facility] Work Phone: 04-12-2001 poliovirus vaccine, inactivated Martina Rodriguez MD, PhD Work Phone: [facility] Work Phone: 02-03-2001 diphtheria, tetanus toxoids and acellular pertussis vaccine Martina Rodriguez MD, PhD Work Phone: [facility] Work Phone: 02-03-2001 haemophilus influenz ae type b vaccine, HbOC conjugate Martina Rodriguez MD, PhD Work Phone: [facility] Work Phone: 02-03-2001 poliovirus vaccine, inactivated Martina Rodriguez MD, PhD Work Phone: [facility] Work Phone: 2000 hepatitis B vaccine, pediatric or pediatric/adolescent dosage Martina Rodriguez MD, PhD Work Phone: [facility] Work Phone: 2000 hepatitis B vaccine, pediatric or pediatric/adolescent dosage Martina Rodriguez MD, PhD Work Phone: [facility] Work Phone: Payers Date Payer Category Payer Private Health Insurance [id number] 2024 Unknown [id number] 2023 Unknown [id number] 2022 Private Health Insurance [id number] 2022 Self-pay 2020 Private Health Insurance [id number] 2020 Private Health Insurance [id number]. [id number] 2000 Unknown [id number] 2.16.840.1.495249.3.579.2.727 2000 Unknown [id number] 2.16.840.1.564579.3.579.2.727 2000 Unknown [id number] 2.16.840.1.357320.3.579.2.727 2000 Unknown [id number] 2.16.840.1.330002.3.579.2.727 2000 Unknown [id number] 2.16.840.1.598870.3.579.2.727 2000 Unknown [id number] 2.16.840.1.714854.3.579.2.727 2000 Unknown [id number] 2.16.840.1.064887.3.579.2.727 2000 Unknown [id number] 2.16.840.1.542324.3.579.2.727 2000 Unknown [id number] 2.16.840.1.616545.3.579.2.727 2000 Unknown [id number] 2.16.840.1.847149.3.579.2.727 2000 Unknown [id number] 2.16.840.1.993247.3.579.2.727 2000 Unknown [id number] 2.16.840.1.507399.3.579.2.1286 2000 Unknown [id number] 2.16.840.1.004640.3.579.2.1286 2000 Unknown [id number] 2.16.840.1.305004.3.579.2.1286 2000 Unknown [id number] 2.16.840.1.058613.3.579.2.727 2000 Unknown [id number] 2.16.840.1.656945.3.579.2.727 2000 Unknown [id number] 2.16.840.1.774895.3.579.2.1259 2000 Unknown [id number] 2.16.840.1.587927.3.579.2.1259 2000 Unknown [id number] 2.16.840.1.530421.3.579.2.1259 2000 Unknown [id number] 2.16.840.1.670115.3.579.2.1259 2000 Unknown [id number] 2.16.840.1.243806.3.579.2.1259 2000 Unknown [id number] 2.16.840.1.220236.3.579.2.9 2000 Unknown [id number] 2.16.840.1.558922.3.579.2.1259 2000 Unknown [id number] 2.16.840.1.987410.3.579.2.9 2000 Unknown [id number] 2.16.840.1.351580.3.579.2.9 2000 Unknown [id number] 2.16.840.1.154203.3.579.2.1259 Private Health Insurance [facility] [id number] Unknown [id number] 2.16.840.1.432296.3.579.2.531 Unknown [facility] Employees [id number] Unknown [id number] 2.16.840.1.798886.3.579.2.531 Social History Date Type Detail Facility Start: 03-08-2023 End: 07-05-2024 Sex Assigned At [facility] Michael Bieker Other Start: 09-27-2014 End: 07-05-2024 Tobacco smoking status DEIS Never smoked tobacco [facility] History of tobacco use Passive smoker [facility] Start: 03-08-2023 Alcohol intake Not Asked [facility] Start: 2000 Sex Assigned At Not on file C [facility] Start: 2000 Sex Assigned At Female [facility] Start: 03-08-2023 End: 07-05-2024 History of Social function [facility] Start: 07-05-2024 Tobacco use and exposure Smokeless tobacco non-user [facility] Start: 07-19-2024 End: 08-14-2024 Alcoholic beverage intake Ex-drinker (finding) [facility] Start: 01-06-2024 [facility] Clinical Notes 09-09-2009 to 08-14-2024 Mar Ortega LPN - 08/14/2024 8:40 AM NIDIA Stephens - 07/31/2024 8:50 AM EDT Note Date & Type Note Facility 08-14-2024 History of Presen t illness Narrative Reason for Appointment: Patient ID: Emmy Dale is a 23 y.o. female who presents for Routine Visit Patient presents today for Return OB appointment. MEDICATIONS Current Outpatient Medications Medication Instructions aspirin 81 mg, Daily RT docusate sodium (COLACE) 100 mg, Daily fiber 625 mg, Daily levothyroxine (SYNTHROID) 100 mcg, Oral, Daily before breakfast magnesium oxide (MAG-OX) 400 mg, Oral, Daily ondansetron ODT (ZOFRAN-ODT) 4 mg, Oral, Every 6 hours PRN Mwggetjc-Ksm-Bb-FA ( 1 + IRON PO) ALLERGIES Allergies [...] Exam Constitutional: Appearance: Normal appearance. She is well-developed. Cardiovascular: Rate and Rhythm: Normal rate and regular rhythm. Pulmonary: Effort: Pulmonary effort is normal. Breath sounds: Normal breath sounds. Abdominal: General: Bowel sounds are normal. There is no distension. Palpations: Abdomen is soft. Tenderness: There is no abdominal tenderness. There is no guarding or rebound. Musculoskeletal: General: No swelling. Normal range of motion. Right lower leg: No edema. Left lower leg: No edema. Neurological: Mental Status: She is alert and oriented to person, place, and time. Skin: General: Skin is warm and dry. Psychiatric: Mood and Affect: Mood normal. Behavior: Behavior normal. Vitals and nursing note reviewed. Exam conducted with a shade classifier present. Vitals: There is no height or weight on file to calculate BMI. BP: Patient's last menstrual period was 12/23/2023. ASSESSMENT & PLAN ICD-10-CM 1. 33 weeks gestation of Z3A.33 POCT urinalysis dipstick manually resulted 2. Third trimester Z34.93 POCT urinalysis dipstick manually resulted Return OB: Patient presents today for a routine obstetrics appointment. Patient is currently 33w4d . Patient states she is doing well but has complaints of being tired due to current . Discussed RSV vaccine and tDAP vaccine. Patient has verbalizes frequent movement. labor precautions was discussed/given and patient was instructed to perform kick counts three times a day. Orders Placed This Encounter Procedures POCT urinalysis dipstick manually resulted Follow Up: Patient is to return to office in 2 week for routine OB appointment. Documented by Mar Ortega LPN on behalf of: Dami Canseco DO documented in this encounter [facility] 07-31-2024 History of Presen t illness Narrative [...] 4 mg, Oral, Every 6 hours PRN Olmrzqul-Umk-Hl-FA ( 1 + IRON PO) ALLERGIES Allergies [...] Dami Canseco DO documented in this encounter [facility] 09-15-2023 Evaluation note Encounter Date Diagnosis [...] in office today for physical therapy to [facility]. Discussed continuation of tbhy-siv-cvttyqp medications as needed. Take muscle relaxer as [...] in office today for physical therapy to [facility]. Discussed continuation of qzzu-xae-lpavszt medications as needed. Take muscle relaxer as [...] that were not corrected during review process. [employer] Other 09-12-2023 Evaluation note* Encounter Date Diagnosis [...] that were not corrected during review process. [employer] Other 07-26-2023 Evaluation note* Encounter Date Diagnosis [...] that were not corrected during review process. [employer] Other 06-18-2023 NoteEchocardiology Procedure Exam Date/Time Accession # Ordering ECG Stress Exercise 04/15/2023 08:43 EDT [id number] Benjamin Baker MD CPT code 50531 Reason for Exam (ECG Stress Exercise) I95.1;Dizziness [...] Benjamin Baker MD Transcribed by: jamie Technologist: [facility]06-16-2023 Note Echocardiology Procedure Exam Date/Time Accession # Ordering Echo Transthoracic 04/15/2023 09:42 EDT [id number] Benjamin Baker MD Complete CPT code 36875 [id number] Reason for Exam (Echo Transthoracic Complete) I95.9;Hypotension Report [facility] [address] [place] [address] Adult Echocardiogram Report Name: EMMY DALE Study Date: 04/15/2023 09:02 AM BP: 105/71 mmHg Patient Location: [facility] HR: 75 : 2000 Gender: Female Height: 63 in Age: 22 yrs Ethnicity: [facility] Weight: 178 lb Reason For Study: Hypotension BSA: 1.8 m2 History: No cardiac history per patient Ordering Physician: Samuel^Benjamin^J Referring Physician: Benjamin Baker Performed By: Jonelle Alvarez, [facility] Interpretation Summary Ejection Fraction = [...] Benjamin Baker MD Transcribed by: YOVANI Technologist: [facility]05-09-2023 Note HNO ID: [id number] Author: Martina Rodriguez MD, PhD Service: ? [...] Arthritis Father in blood . was [place] [employer] when baby thought to be related to [...] Plan: Will monitor thyroid (more content not included)...[facility] 03-08-2023 History of Present illness Narrative* [...] Martina Rodriguez MD, PhD [facility] note* Encounter Date Diagnosis Assessment Notes [...] I would recommend referral to a different shuffle board operator. Patient does have the name of an shuffle board operator that she would like referred to. We will put that referral in today. Dr. Roger Kim - [facility] Endocrinology, [facility] February, Dizziness (ICD-10 - R42) Discussed her [...] that were not corrected during review process. [employer] Other 10-06-2022 Evaluation note* Encounter Date Diagnosis [...] to ER, I highly recommend she call SPORTS [employer]OOK SERVER the second she leaves our office to follow-up.She needs to let them know about her concerns.I explained to her that even though she may assume that her SPORTS BOOK SERVER will not listen her , I still want her to reach out to that office and explained to them her current concerns. She wants to know what the immediate treatment would be and work-up for spinal headache and possible leak however I cannot provide her with this information as I am not SPORTS BOOK SERVER. Jul, Hip pain (ICD-10 - M25.559) While [...] I did discuss with her concerns over posw-cex-cfgbykw medications during breast-feeding. Discussed recommendations currently and please bring this up to SPORTS BOOK SERVER as well for further recommendations. Does not [...] I would like her to follow-up with SPORTS BOOK SERVER or go to ER regarding this dizziness and we can follow-up in office after. If nothing comes from an SPORTS BOOK SERVER/spinal headache/spinal leak standpoint, we can order CT [...] that were not corrected during review process. [employer] Other 11-10-2009 History of Past illness Narrative* Problem Noted Date Resolved Date Constipation 09/09/2009 08/28/2014 documented as of this encounter (statuses as of 03/09/2023) [facility]11-10-2009 History of Past illness Narrative* Problem Noted Date Diagnosed Date Resolved Date Constipation 09/09/2009 08/28/2014 documented as of this encounter (statuses as of 08/09/2023) [facility] noteNo InformationNort Saber Hacer Other Evaluation note* Diagnosis Vikki's thyroiditis- Primary Chronic lymphocytic thyroiditis documented in this encounter [facility] noteNo assessment information availableSelect Medical [facility] Work Phone: Evaluation note* Diagnosis Vikki's thyroiditis- Primary Chronic lymphocytic thyroiditis [facility] Diagnosis 31 weeks gestation of Third trimester state, incidental [facility]* Diagnosis 33 weeks gestation of Third trimester state, incidental documented in this encounter [facility] HealthcareHistory general Narrative - Reported* Type Description Date Medical History Asthma Medical History Vasovagal syndrome- childhood (r esolved) Medical History Exercise-induced asthma Medical History Pityriasis rosea Medical History Tachycardia Medical History Vikki's thyroiditis Medical History Pre-eclampsia Surgical History Nicasio teeth extract 2016 Surgical History Vaginal childbirth 03/2022 Hospitalization History See surgical hx [employer] Other History general Narrative - Reported* Type Description Date Medical History Exercise-induced asthma Medical History Pityriasis rosea Medical History Tachycardia Medical History Vikki's thyroiditis Medical History Asthma Medical History Pre-eclampsia Medical History Hypotension Surgical History Nicasio teeth extract 2017 Surgical History Vaginal childbirth 03/2022 Hospitalization History See surgical [employer] Other [facility] general Narrative - Reported* Type Description Date Medical History Exercise-induced asthma Medical History Pityriasis rosea Medical History Tachycardia Medical History Vikki's thyroiditis Medical History Asthma Medical History Pre-eclampsia Medical History Hypotension Medical History GERD (gastroesophageal reflux di sease) Surgical History Nicasio teeth extract 2016 Surgical History Vaginal childbirth 03/2022 Surgical History EGD/colonoscopy 2011 Hospitalization History See surgical [employer] Other [employer] general Narrative - Reported* Type Description Date Medical History Exercise-induced asthma Medical History Pityriasis rosea Medical History Tachycardia Medical History Vikki's thyroiditis Medical History Asthma Medical History Pre-eclampsia Medical History Hypotension Medical History GERD (gastroesophageal reflux di sease) Medical History Thyromegaly Surgical History Nicasio teeth extract 2017 Surgical History Vaginal childbirth 03/2022 Surgical History EGD/colonoscopy 2012 Hospitalization History See surgical [employer] Other Hisvzfq general Narrative - Reported* Type Description Date Medical History Exercise-induced asthma Medical History Pityriasis rosea Medical History Tachycardia Medical History Vikki's thyroiditis Medical History Asthma Medical History Pre-eclampsia Medical History Hypotension Medical History GERD (gastroesophageal reflux di sease) Medical History Thyromegaly Medical History Other idiopathic scoliosis, thor acic region Surgical History Nicasio teeth extract 2017 Surgical History Vaginal childbirth 03/2022 Surgical History EGD/colonoscopy 2012 Hospitalization History See surgical [employer] Other Summary Purpose Family History No Family [...] FoundNo Family History Records Found Advance Directives Advance Directive Response Recorded Date/ Time Advance Directives No January 06 2:42pm Reason for Referral Reason *Waiting for appt GI , possible ulcer Diagnosis 1 Other acute gastriti s with hemorrhage (K29.01) Referral Organization [facility] [place] Referring Provider First Name Lyndon Referring Provider Last Name [facility] Referring Provider Specialty Nurse Pract itioner Referred Organization [facility] Gastroenterolo gy Referred Provider Patricio Urena Referred Address [address] ,[place], [place],[address] Referred Provider Specialty Gastroentero logy Referral Priority Routine General Notes [facility] 023 10:08:56 AM >Received today. [facility] request us to fill out their form and fax to them. They will review the referral and call patient to schedule them. Referral was fax. [facility] 07/12/2023 01:31:38 PM >Per telephone encounter, patient wants to try [facility]. Sent P2P Reason *03/08 Dr. Hawa Kim - [facility] Endocrinology, [facility]; [employer]- please send this note with 2 previous notes Diagnosis 1 Vikki's thyroidi tis (E06.3) Referral Organization [facility] [place] Referring Provider First Name Lyndon Referring Provider Last Name [facility] Referring Provider Specialty Nurse Alfred barron Referred Organization [facility] Referred Address [address],[place],[address] Referred Provider Specialty Endocrinolog y Referral Priority Routine General Notes [facility] 023 01:21:05 PM >Received today and referral was fax with the [facility] Form. They will review and call patient to schedule Reason *03/08 Dizzines s- TERRENCE; Please send this note with 2 previous notes Diagnosis 1 Dizziness (R42) Referral Organization [facility] [place] Referring Provider First Name Lyndon Referring Provider Last Name [facility] Referring Provider Specialty Nurse Pracrosalba itfelecia Referred Organization [facility] Referred Provider Jose Dominguez [address],[address] Referred Provider Specialty Neurology Referral Priority Routine General Notes [facility] 023 01:26:59 PM >Received today. [facility] request us to fill out their form and attach to Referral and send it to them and they will call patient to schedule. Referral was sent P2P Chief Complaint and Reason for Visit Chief Complaint dizzy Additional Source Comments INFORMATION SOURCE (unrecogn ized section and content) DATE CREATED AUTHOR 08/06/2022 [facility] DATE CREATED AUTHOR AUTHOR'S ORGANIZ ATION 08/20/2023 [facility] [facility] DATE CREATED AUTHOR AUTHOR'S ORGANIZ ATION 04/06/2024 [facility] DATE CREATED AUTHOR AUTHOR'S ORGANIZ ATION 05/03/2024 [facility] DATE CREATED AUTHOR AUTHOR'S ORGANIZ ATION 05/18/2024 [facility] DATE CREATED AUTHOR AUTHOR'S ORGANIZ ATION 06/14/2024 [facility] DATE CREATED AUTHOR AUTHOR'S ORGANIZ ATION 06/26/2024 [facility] DATE CREATED AUTHOR AUTHOR'S ORGANIZ ATION 07/07/2024 [facility] DATE CREATED AUTHOR AUTHOR'S ORGANIZ ATION 07/24/2024 [facility] DATE CREATED AUTHOR AUTHOR'S ORGANIZ ATION 07/29/2024 [facility] DATE CREATED AUTHOR AUTHOR'S ORGANIZ ATION 08/16/2024 [facility] EPIC REASON FOR VISIT (unrecogniz [...] or prosecute any alcohol or drug abuse patient.[facility] GeneralIn the event this information is protected by the Federal Confidentiality of Alcohol and Drug Abuse Patient Records regulations: The Federal rules restrict any use of the information to criminally investigate or prosecute any alcohol or drug abuse patient.[facility] Teams (unrecognized sec tion and content) Temperature Inspector Relationship Specialty Start Date End Date Lyndon Dalal CNP [address] [address] PCP - General Family Medicine 03/08/23 Lyndon Dalal CNP [address] [address] Referring Family Medicine 03/04/23 Team Status: Active Member Role Status Dates Lyndon Dalal APRN Primary Care Provider Active Team Status: Inactive Member Role Status Dates Lyndon Dalal APRN Primary Care Provider, Attend ing Provider Active Temperature Inspector Relationship Specialty Start Date End Date Lyndon Dalal CNP [address] [address] PCP - General Family Medicine 03/08/23 Lyndon Dalal CNP [address] [address] Referring Family Medicine 03/04/23 Temperature Inspector Relationship Specialty Start Date End Date Ge Cloud MD [address] [phone] PCP - General Family Medicine 01/25/24 Temperature Inspector Relationship Specialty Start Date End Date Ge Cloud MD [address] [phone] PCP - General Family Medicine 01/25/24 Goals [...] BE BASED ON THE PRIMARY CLINICAL RECORDS. [facility]. provides no warranty or guarantee of the accuracy or completeness of information in this document.
--- NOTE | 2024-08-18 14:03 | US_ITS ---
[address] [address] Patient Name: EMMY DALE MRN: [id number] date: 2000 Sex: F Assigned Patient Location: [facility] Current Patient Location: Accession/Order Number: [id number] Exam Date: 08/18/2024 14:04 Report Date: 08/20/2024 07:32 At the request of: LELE ALEJO Procedure: US OB BPP w non-stress EXAMINATION: US OB BPP w non-stress HISTORY: Amniotic fluid borderline low O28.8 COMPARISON: No relevant comparison available. TECHNIQUE: Ultrasound biophysical profile was performed in the radiology department. non-reactive stress testing was performed by nursing staff in the birthing center. FINDINGS: BREATHING MOVEMENTS: 2 GROSS BODY MOVEMENTS: 2 TONE: 2 QUALITATIVE AMNIOTIC FLUID VOLUME: 2 PRESENTATION: CEPHALIC HEART RATE: 135 bpm AMNIOTIC FLUID VOLUME: 16.3 cm GESTATIONAL AGE: 34 weeks 1 day US/US OB BPP w non-stress IMPRESSION: Total biophysical profile score: 8 Electronically authenticated by: CHRISTINE WALKER Date: 08/20/2024 07:32
[2024-08-18 14:20] VITALS: BP 117/68; PULSE 83
== END 2024-08-18 14:53 | disposition home or self-care (01) ==
LOC: US 07:28 → FBC 14:00
PROVIDERS: PCP Family Medicine; Visit Provider Physician Assistant
DX: O28.8 Other abnormal findings on antenatal screening of mother (principal); Z3A.34 34 weeks gestation of pregnancy; E07.9 Disorder of thyroid, unspecified; Z87.59 Personal history of other complications of pregnancy, childbirth and the puerperium
CPT/HCPCS: 76818

== ENCOUNTER 2024-08-22 06:58 | Outpatient (OUT) | payer OTHER, SELFPAY ==
--- OUTSIDE RECORDS SUMMARY | 2024-08-22 07:01 | XMS_ITS | CCD ---
Author Organization [facility] Care Team Providers Care Supervisor Counseling And Guidance Name Role Phone Lyndon Dalal Primary Care Unavailable Juancarlos Maria Attending Unavailable Juancarlos Maria Admitting Unavailable Lyndon Dalal Unavailable Lyndon Dalal CNP Unavailable [phone] Lyndon Dalal CNP Primary Care Provider [phone] ANKIT Dalal Primary Care Provider [phone] ANKIT Dalal Attending Provider LYNDON DALAL Primary Care Unavailable MARTINA RODRIGUEZ Referring Unavailable YOSELIN, LYNDON Primary Care Unavailable MARTINA RODRIGUEZ Referring Unavailable MARTINA RODRIGUEZ M Referring Unavailable YOSELIN, LYNDON Primary Care Unavailable MARTINA RODRIGUEZ Attending Unavailable Dami CANSECO Admitting Unavailable Dami CANSECO Attending Unavailable YOSELIN LYNDON Admitting Unavailable MELISSA DALALA Attending Unavailable Bill Kat Admitting Unavailable Bill Kat Attending Unavailable Benjamin BAKER Admitting Unavailable NONE, XXXX Referring Unavailable Benjamin BAKER Attending Unavailable Benjamin BAKER Admitting Unavailable NONE, XXXX Referring Unavailable Benjamin ABKER Attending Unavailable Benjamin BAKER Referring Unavailable Benjamin [...] Dami R Attending Unavailable Pedro Luis VELAZQUEZ, Howell Primary Care Provider [phone] AJITH, DAMI Attending Unavailable AJITH, DAMI Attending Unavailable AJITH, DAMI Attending Unavailable MELO, LELE Attending Unavailable AJITH, DAMI Attending Unavailable AJITH, DAMI Attending Unavailable MELO, LELE Attending Unavailable AJITH, DAMI Attending Unavailable AJITH, DAMI Attending Unavailable Allergies Allergy Classification Reported Allergen(s) Allergy Type Date of Onset Reaction(s) Facility Sulfonamides (antibiotic) (1 source) Sulfonamides (Antibiotic); Translations: [sulfa drugs] Drug Allergy [facility] Repository (6 sources) Sulfonamides (Antibiotic); Translations: [SULFA (SULFONAMIDE ANTIBIOTICS)] Drug allergy (disorder) 5 [facility] Repository (2 sources) Sulfonamide Drug allergy [facility] Other (20 sources) Substance with sulfonamide structure and antibacterial mechanism of action (substance) Drug allergy 5 [facility] (3 sources) Sulfonamides (Antibiotic); Translations: [sulfa drugs] Propensity to adverse reactions (disorder) [facility] Repository Medications Current Medications Medication Drug Class(es) [...] a day for 5 days Aug, Active Ssiylneb-Ltq-Hj-FA ( 1 + IRON PO) (6 sources) Start: Zlpuzwcu-Wgd-Mr-FA ( 1 + IRON PO) 01/20/2024 Active [...] by fredi th every twenty-four hours Biotin 04837 MCG 1 tablet Orally Once a day OTC Not-Taking/PRN take 1 tablet by fredi th every twenty-four hours Biotin 39921 MCG 1 tablet Orally Once a day OTC Not-Taking take 1 tablet by mouth once [place] y Biotin 70949 MCG 1 tablet Orally Once a day OTC Not-Taking BIOTIN ORAL Take by mouth q 24 HR. 0 Active take 1 tablet by mouth once [place] [facility] Biotin 60882 MCG 1 tablet Orally Once a day [...] Comment on above: Take 1 tablet by [facility] once daily. Iodine (14 sources) [...] Probiotic OTC, daily Active lactobacillus rhamnosus gg [id number] unt oral capsule (1 source) Start: 5 End: 3 take 1 capsule by mouth once daily lactobacillus rhamnosus (CULTURELLE) 10 billion cell capsule Indications: Abdominal pain Take 1 capsule by mouth once daily. 30 capsule 2 04/30/2015 03/08/2023 Discontinued Comment on above: Take 1 capsule by mo [facility] once daily. Moringa (14 sources) Moringa [...] Comment on above: Take 1 capsule by [facility] once daily. pantoprazole 20 mg delayed [...] Name Value Interpretation Reference Range Facility TSHon 08-20-2024 TSH Qn 1.87 m[IU]/L Normal 0.34-5.60 [facility] Comment on above: Performed By: #### 2 [id number] #### [facility] [address] [place] [address] Urinalysis macro (dipstick) panel (U)on 08-14-2024 Bilirubin, UA Negative Negative - 4(70) +++ mg/dL [facility] Blood, UA Negative Negative - 50 Juanito/mcL [facility] Clarity, UA Clear [facility] Color, UA Yellow [facility] Glucose, UA Negative Negative - 1999(110) ++++ mg/dL [facility] Interpretation and review of laboratory results Abnormal [facility] Ketones, UA Negative Negative - 160(16) ++++ mg/dL [facility] Leukocytes, UA Trace Negative - 500+++ Ken/mcL [facility] Nitrite, UA Negative Negative - Positive [facility] pH, UA 6.5 5 - 9 [facility] Protein, UA Negative Negative - 1999(20) ++++ mg/dL [facility] Spec Grav, UA 1.015 1 - 1.03 [facility] Urobilinogen, UA 0.2 0.2 - 12 mg/dL [facility] Urinalysis macro (dipstick) panel (U)on 07-31-2024 Bilirubin, UA Negative Negative - 4(70) +++ mg/dL [facility] Blood, UA Negative Negative - 50 Juanito/mcL [facility] Clarity, UA Clear [facility] Color, UA Yellow [facility] Glucose, UA Negative Negative - 2000(110) ++++ mg/dL [facility] Interpretation and review of laboratory results Abnormal [facility] Ketones, UA Negative Negative - 160(16) ++++ mg/dL [facility] Leukocytes, UA Positive Negative - 500+++ Ken/mcL [facility] Comment on above: small Nitrite, UA Negative Negative - Positive [facility] pH, UA 6.5 5 - 9 [facility] Protein, UA Negative Negative - 2000(20) ++++ mg/dL [facility] Spec Grav, UA 1.010 1 - 1.03 [facility] Urobilinogen, UA 0.2 0.2 - 12 mg/dL [facility] CBC w/ Auto Diffon 4 Basophils/100 WBC (Bld) 0.4 % Normal 0.0-2.0 [facility] Comment on above: Performed By: #### 2 [id number] #### [facility] [address] [place] [address] Basophils/Leukocyt es Auto (Bld) [Pure # fraction] 0.0 E9/L Normal 0.0-0.2 [facility] Comment on above: Performed By: #### 2 168423 #### [facility] [address] [place] [address] Eosinophils (Bld) [#/Vol] 0.2 E9/L Normal 0.0-0.5 [facility] Comment on above: Performed By: #### 2 869028 #### [facility] [address] [place] [address] Eosinophils/100 WBC (Bld) 2.9 % Normal 0.0-8.0 [facility] Comment on above: Performed By: #### 2 024119 #### [facility] [address] [place] [address] Erythrocyte distribution width (RBC) [Ratio] 13.6 % Normal 10.9-14.2 [facility] Comment on above: Performed By: #### 2 080712 #### [facility] [address] [place] [address] Hematocrit (Bld) [Volume fraction] 37.3 % Normal 34.0-46.0 [facility] Comment on above: Performed By: #### 2 386090 #### [facility] [address] [place] [address] Hemoglobin (Bld) [Mass/Vol] 12.8 g/dL Normal 12.0-16.0 [facility] Comment on above: Performed By: #### 2 172469 #### [facility] [address] [place] [address] Lymphocytes (Bld) [#/Vol] 1.9 E9/L Normal 1.0-4.0 [facility] Comment on above: Performed By: #### 2 818539 #### [facility] [address] [place] [address] Lymphocytes/100 WBC (Bld) 24.0 % Normal 14.0-50.0 [facility] Comment on above: Performed By: #### 2 571749 #### [facility] [address] [place] [address] MCH (RBC) [Entitic mass] 30.5 pg Normal 27.0-34.0 [facility] Comment on above: Performed By: #### 2 189062 #### [facility] [address] [place] [address] MCHC (RBC) [Mass/Vol] 34.2 g/dL Normal 31.4-36.0 [facility] Comment on above: Performed By: #### 2 599022 #### [facility] [address] [place] [address] MCV (RBC) [Entitic vol] 89.0 fL Normal 80.0-100.0 [facility] Comment on above: Performed By: #### 2 948083 #### [facility] [address] [place] [address] Monocytes (Bld) [#/Vol] 0.4 E9/L Normal 0.2-1.0 [facility] Comment on above: Performed By: #### 2 297671 #### [facility] [address] [place] [address] Neutrophils (Bld) [#/Vol] 5.5 E9/L Normal 2.0-7.5 [facility] Comment on above: Performed By: #### 2 165068 #### [facility] [address] [place] [address] Neutrophils/100 WBC (Bld) 67.8 % Normal 36.0-75.0 [facility] Comment on above: Performed By: #### 2 341283 #### [facility] [address] [place] [address] Platelet mean volume (Bld) [Entitic vol] 8.3 fL Normal 6.4-10.8 [facility] Comment on above: Performed By: #### 2 698290 #### [facility] [address] [place] [address] Platelets (Bld) [#/Vol] 267.0 E9/L Normal 150.0-500.0 [facility] Comment on above: Performed By: #### 2 068859 #### [facility] [address] [place] [address] RBC (Bld) [#/Vol] 4.2 E12/L Low 4.3-5.9 [facility] Comment on above: Performed By: #### 2 182310 #### [facility] [address] [place] [address] WBC corrected for nucl RBC Auto (Bld) [#/Vol] 8.0 E9/L Normal 4.0-11.0 [facility] Comment on above: Performed By: #### 2 561506 #### [facility] [address] [place] [address] Free T4on 07-23-2024 Free T4 [Mass/Vol] 0.57 ng/dL Low 0.58-1.64 [facility] Comment on above: Performed By: #### 2 818714 #### [facility] [address] [place] [address] Lyteson 07-23-2024 Anion gap [Moles/Vol] 12 mmol/L Normal 6-16 [facility] Comment on above: Performed By: #### 2 626092 #### [facility] [address] [place] [address] Chloride [Moles/Vol] 105 mmol/L Normal 101-111 [facility] Comment on above: Performed By: #### 2 319166 #### [facility] [address] [place] [address] CO2 [Moles/Vol] 24 mmol/L Normal 21-31 [facility] Comment on above: Performed By: #### 2 022307 #### [facility] [address] [place] [address] Potassium [Moles/Vol] 3.5 mmol/L Normal 3.5-5.3 [facility] Comment on above: Performed By: #### 2 906163 #### [facility] [address] [place] [address] Sodium [Moles/Vol] 137 mmol/L Normal 135-145 [facility] Comment on above: Performed By: #### 2 095705 #### [facility] [address] [place] [address] TSHon 07-23-2024 TSH Qn 2.26 m[IU]/L Normal 0.34-5.60 [facility] Comment on above: Performed By: #### 2 229912 #### [facility] [address] [place] [address] CMPon 06-25-2024 Albumin [Mass/Vol] 3.6 g/dL Normal 3.3-5.0 [facility] Comment on above: Performed By: #### 2 070661 #### [facility] [address] [place] [address] Albumin/Globulin (S) [Mass conc ratio] 1.3 Normal 1.1-2.2 [facility] Comment on above: Performed By: #### 2 084614 #### [facility] [address] [place] [address] ALP [Catalytic activity/Vol] 63 Int._Unit/L Normal 21-98 [facility] Comment on above: Performed By: #### 2 775619 #### [facility] [address] [place] [address] ALT No additional P-5'-P [Catalytic activity/Vol] 13 Int._Unit/L Normal 6-46 [facility] Comment on above: Performed By: #### 2 239400 #### [facility] [address] [place] [address] Anion gap [Moles/Vol] 10 mmol/L Normal 6-16 [facility] Comment on above: Performed By: #### 2 415034 #### [facility] [address] [place] [address] AST [Catalytic activity/Vol] 12 Int._Unit/L Normal 5-43 [facility] Comment on above: Performed By: #### 2 845010 #### [facility] [address] [place] [address] Bilirubin [Mass/Vol] 0.7 mg/dL Normal 0.0-1.1 [facility] Comment on above: Performed By: #### 2 574769 #### [facility] [address] [place] [address] Calcium [Mass/Vol] 8.6 mg/dL Low 8.9-11.1 [facility] Comment on above: Performed By: #### 2 460683 #### [facility] [address] [place] [address] Chloride [Moles/Vol] 104 mmol/L Normal 101-111 [facility] Comment on above: Performed By: #### 2 413677 #### [facility] [address] [place] [address] CO2 [Moles/Vol] 25 mmol/L Normal 21-31 [facility] Comment on above: Performed By: #### 2 915003 #### [facility] [address] [place] [address] Creatinine [Mass/Vol] 0.4 mg/dL Low 0.5-1.3 [facility] Comment on above: Performed By: #### 2 899522 #### [facility] [address] [place] [address] Globulin (S) [Mass/Vol] 2.8 g/dL Normal 1.4-4.0 [facility] Comment on above: Performed By: #### 2 610922 #### [facility] [address] [place] [address] Glucose [Mass/Vol] 97 mg/dL Normal 55-199 [facility] Comment on above: Performed By: #### 2 210817 #### [facility] [address] [place] [address] Potassium [Moles/Vol] 3.4 mmol/L Low 3.5-5.3 [facility] Comment on above: Performed By: #### 2 369715 #### [facility] [address] [place] [address] Protein [Mass/Vol] 6.4 g/dL Normal 6.0-7.8 [facility] Comment on above: Performed By: #### 2 671139 #### [facility] [address] [place] [address] Sodium [Moles/Vol] 136 mmol/L Normal 135-145 [facility] Comment on above: Performed By: #### 2 785643 #### [facility] [address] [place] [address] Urea nitrogen [Mass/Vol] 8 mg/dL Normal 5-21 [facility] Comment on above: Performed By: #### 2 336762 #### [facility] [address] [place] [address] Urea nitrogen/Creatinin e [Mass ratio] 20 No Units Normal 10-20 [facility] Comment on above: Performed By: #### 2 961219 #### [facility] [address] [place] [address] TSHon 06-25-2024 TSH Qn 3.63 m[IU]/L Normal 0.34-5.60 [facility] Comment on above: Performed By: #### 2 634878 #### [facility] [address] [place] [address] eGFRon 06-25-2024 eGFR 142 mL/min/1.73 m2 Normal >=59 [facility] Comment on above: Order Comment: Order added by Discern Expert. Performed By: #### 1 [id number] #### [facility] [address] [place] [address] TSHon 05-31-2024 TSH Qn 1.99 m[IU]/L Normal 0.34-5.60 [facility] Comment on above: Performed By: #### 2 430869 #### [facility] [address] [place] [address] TSHon 05-01-2024 TSH Qn 1.54 m[IU]/L Normal 0.34-5.60 [facility] Comment on above: Performed By: #### 2 888852 #### [facility] [address] [place] [address] Consent for Treatmenton Consent for Treatment [id number] F Normal [facility] Physician Orderon 04-04-2024 Physician Order [id number]#[id number] FF Normal [facility] TSHon 04-04-2024 TSH Qn 2.73 m[IU]/L Normal 0.34-5.60 [facility] Comment on above: Performed By: #### 2 664795 #### [facility] [address] [place] [address] XR Spine Cervical 4 or 5 Vie [...] mGy = . DAP = . Normal [facility] XR Spine Thoracic 3 Viewson 09-16-2023 XR [...] mGy = . DAP = . Normal [facility] Physician Orderon 09-15-2023 Physician Order [id number] IFF Normal [facility] T4 Free SerPl-mCncon 023 Free T4 [Mass/Vol] 1.2 ng/dL Normal 0.9-1.7 [facility] Comment on above: Order Comment: Speci men Type: BLOOD SPECIMEN Ordering Facility: [facility] Address: [address] [place] [address] Performed By: #### 3 024-7, 3016-3 #### [facility] CLIA [id number] [address] [place] [address] [place] TSH SerPl-aCncon 08-18-2023 TSH Qn 2.280 m[IU]/L Normal 0.270-4.200 [facility] Comment on above: Order Comment: Speci men Type: BLOOD SPECIMEN Ordering Facility: [facility] Address: [address] [place] [address] Result Comment: If t he patient is , TSH reference range varies by gestational period: First Trimester (weeks 9-12): 0.180-2.990 mIU/L Second Trimester: 0.110-3.980 mIU/L Third Trimester: 0.480-4.710 mIU/L Noe Ramon et al. A Practical Approach for the Verifications and Determination of Site- and Trimester-Specific Reference Intervals for Thyroid Function tests in . Thyroid, 2019:29:3:412-420. Gergor E, et al. 2017 Guidelines of the [place] [employer] for the Diagnosis and Management of Thyroid Disease during and the . Thyroid, 2017:27:3:315-389. Performed By: #### 3 024-7, 3016-3 #### [facility] CLIA [id number] [address] [place] [address] [place] Consent for Treatmenton Consent for Treatment [id number]: 127 Normal [facility] US Renalon 07-08-2023 US Renal Exam Date/Time: [...] M.D. Transcribed by: MORENO Technologist: EMILY Chung [facility] XR Abdomen 1 Viewon 07-08-20 XR Abdomen [...] mGy = . DAP = . Normal [facility] Ambulatory Visit Summaryon 0 06-21-2023 Ambulatory Visit Summary EMMY DALE Tristen :2000 Visit Date:06/21/2023 Ambulatory Visit Instructions Your Diagnosis Urinary crystals Recurrent UTI Urethral stricture Gross hematuria Tests Performed Urnls Dip Stick Auto w/o Microscopy POC 99257 Your Care Team Attending Physician - SOBEIDA THOMPSON PA-C Primary Care Physician - LYNDON DALAL CNP This Is Your Medications List Contact prescribing physician if questions or concerns busPIRone (busPIRone 10 mg Tab) levothyroxine (Synthroid 25 mcg(0.025 mg) Tab) Procedures Performed Cystourethroscopy with dilation of urethral stricture (07/2021), Extraction of wisdom tooth (2016), Colonoscopy (2013), EGD (esophagogastroduodenosc opy) gastric outlet reduction (2013). Discharge Vitals Heart Rate (Peripheral) 74 Blood Pressure 116/82 Height 160 cm Height 63 in Weight 78 kg Weight 171.6 lb BMI 30.47 What to do next You Need to Schedule the Following Appointments Follow Up with DONNA FORD, YANY LAURENT When: Comments: will call pt. Where: [address] [place] [address] You Need to Complete the Following US Renal, *Est. 06/21/23 due within 1 months, Routine, Order for future visit, Transport Mode: Ambulatory, Reason: Other (please specify), Reason: Kidney Stones, No, Kidney stones, pp_set_radiology_subspec ialty, [facility] [place] XR Abdomen 1 View, *Est. 06/21/23 due [...] Urnls Dip Stick Auto w/o Microscopy POC 52096 (06/21/2023) Bilirubin Urine Dipstick - Negative Blood Urine Dipstick - Negative Glucose Urine Dipstick - Negative Ketones Urine Dipstick - Negative Leukocytes Urine Dipstick - Negative Nitrite Urine Dipstick - Negative Protein Urine Dipstick - Negative Specific [place] Urine Dipstick - 1.010 Urine Appearance Urine [...] ? 8 oz (237 mL) of milk, onicntn-mostnkqnvniv-exi ry milk, and calcium-fortifiedfruit juice. Calcium-fortified means [...] wheat cereals. (more content not included)... Normal [facility] Patient Educationon 06-21-20 Patient Education Nephrology Dietary [...] ? 8 oz (237 mL) of milk, crinsai-cjpysnhmgods-pnh ry milk, and calcium-fortifiedfruit juice. Calcium-fortified means [...] Spinach (cooked), rhubarb, beets, sweet potatoes, and Kazakh chard. ? Peanuts. ? Potato chips, british fries, and baked potatoes with skin on. ? Nuts and nut products. ? Chocolate. ? If you regularly take a diuretic medicine, make sure to eat at least 1 or 2 servings of fruits or vegetables that are high in potassium each day. These include: ? Avocado. ? Banana. ? Brooks, prune, carrot, or tomato juice. ? Baked [...] fish oil, or vitamin B6. ? Take dfef-tmf-rnolchc and prescription medicines only as told by your health care provider. These include supplements. What foods should I limit? Limit your in (more content not included)... Normal [facility] Urology Office/Clinic Noteon 06-21-2023 Urology Office/Clinic Note [...] pass. [place] [facility] [place] see if any persistent hydro/any remaining [...] Urnls Dip Stick Auto w/o Microscopy POC 71793 4. Gross hematuria (R31.0: Gross hematuria) CORDELIA [...] When Contact Information SOBEIDA THOMPSON PA-C, URL [address] [place] [address] Additional Instructions: will call pt. Patient Education [...] History Cystour (more content not included)... Normal [facility] Comment on above: Result Comment: Elec tronically Signed By: SOBEIDA THOMPSON PA-Cbr\Date and Time Signed: 06/21/23 12:44 EDT\.br\Electronically Co-Signed By: Laura Loubr\Date and Time Co-Signed: 08/22/23 12:25 EDT PAP [id number] 06-07-2023 Cytology report Cyto stain Doc (Cvx/Vag) Note Invalid Interpretation Code [facility] Comment on above: Result Comment: TEST S RESULT FLAG UNITS REF RANGE LAB Clinician Provided Cytology Information Source.............Endocervix No. of containers..01 ThinPrep Vial DIAGNOSIS: 01 NEGATIVE FOR INTRAEPITHELIAL LESION OR MALIGNANCY. Specimen adequacy: 01 Satisfactory for evaluation. Endocervical and/or squamous metaplastic cells (endocervical component) are present. Performed by: Clif Bolaños, Kettle Firer ([facility]) . 01 Note: Note 01 The Pap [...] High <-Panic Low,>-Panic High,A-Abnormal,AA-Critical Abnormal Performed at: [facility] [place] [address] Lisa Ellington MD, Performed at: [facility] [address] KELSEA Walsh [id number] MD Chandana Gonzalez Performed By: #### 3 [id number] ####[facility] [address] [place] [address] Consent for Treatmenton Consent for Treatment [id number]: 127 Normal [facility] Heart and Vascular Office/Cl inic Noteon 06-01-2023 [...] but unfortunately she was called by the postal carrier and told that it was not working. [...] her Sy (more content not included)... Normal [facility] Comment on above: Result Comment: Elec tronically Signed By: SAMUEL VELAZQUEZ, Benjamin Le.br\Date and Time Signed: 06/01/23 14:25 EDT PAP [id number] 06-01-2023 Collection Technique BRUSH-SPATULA Normal [facility] Comment on above: Performed By: #### 3 [id number] ####[facility] [address] [place] [address] Gynecological Body Site ENDOCERVIX Normal [facility] Comment on above: Performed By: #### 3 [id number] ####[facility] [address] [place] [address] Physician Orderon 06-01-2023 Physician Order [id number] :127 [facility] Physician Order [id number]: 127 [facility] C Urineon 05-27-2023 Bacteria identified [...] This test was performed at: [facility] [place], [address] [place] [address], [address] , [place], Normal [facility] Comment on above: Performed By: #### 2 [id number] ####[facility] [address] [place] [address] T4 Free SerPl-mCncon 023 Free T4 [Mass/Vol] 1.2 ng/dL Normal 0.9-1.7 [facility] Comment on above: Order Comment: Rozina florez Type: BLOOD SPECIMEN Ordering Facility: [facility] Address: [address] [address] Performed By: #### 3 024-7, 6-3 #### [facility] CLIA [id number] [address] [place] TSH SerPl-aCncon 05-26-2023 TSH Qn 2.260 m[IU]/L Normal 0.270-4.200 [facility] Comment on above: Order Comment: Rozina florez Type: BLOOD SPECIMEN Ordering Facility: [facility] Address: [address] [place] [address] Result Comment: If t he patient is , TSH reference range varies by gestational period: First Trimester (weeks 9-12): 0.180-2.990 mIU/L Second Trimester: 0.110-3.980 mIU/L Third Trimester: 0.480-4.710 mIU/L Noe Ramon et al. A Practical Approach for the Verifications and Determination of Site- and Trimester-Specific Reference Intervals for Thyroid Function tests in . Thyroid, 2019:29:3:412-420. Gregor E, et al. 2017 Guidelines of the [place] Thyroid Association for the Diagnosis and Management of Thyroid Disease during and the . Thyroid, 2017:27:3:315-389. Performed By: #### 3 024-7, 3016-3 #### [facility] CLIA [id number] [address] [place] [address] [place] Consent for Treatmenton 05-01 Consent for Treatment [id number]: 127 Normal [facility] Physician Orderon 05-25-2023 Physician Order [id number]#[id number]:12 7 Normal [facility] Urinalysison 05-25-2023 Bacteria LM Ql (Urine sed) 2+ /HPF Abnormal Trace [facility] Comment on above: Performed By: #### 1 [id number] ####[facility] [address] [place] [address] Bilirubin Ql (U) Negative Normal Negative [facility] Comment on above: Performed By: #### 1 [id number] ####[facility] [address] [place] [address] Clarity (U) SL CLOUDY Abnormal Clear [facility] Comment on above: Performed By: #### 1 [id number] ####[facility] [address] [place] [address] Color (U) YELLOW Normal Yellow [facility] Comment on above: Performed By: #### 1 [id number] ####[facility] [address] [place] [address] Crystals LM Ql (Urine sed) Present Normal [facility] Comment on above: Performed By: #### 1 [id number] ####[facility] [address] [place] [address] Epithelial cells.squamous LM.HPF (Urine sed) [#/Area] 0-2 Normal 0-2 [facility] Comment on above: Performed By: #### 1 [id number] ####[facility] [address] [place] [address] Glucose Test strip (U) [Mass/Vol] Negative Normal Negative [facility] Comment on above: Performed By: #### 1 [id number] ####[facility] [address] [place] [address] Hemoglobin Ql (U) 2+ Abnormal Negative [facility] Comment on above: Performed By: #### 1 [id number] ####[address] [address] Ketones (U) [Mass/Vol] Negative Normal Negative [facility] Comment on above: Performed By: #### 1 [id number] ####[address] [address] [place].plasma/Lit hium.RBC (Bld) [Mass ratio] 0-3 Normal 0-3 [facility] Comment on above: Performed By: #### 1 [id number] ####[address] [address] Mucus Ql (Urine sed) TRACE Normal [facility] Comment on above: Performed By: #### 1 [id number] ####[address] [address] Nitrite Ql (U) Positive Abnormal Negative [facility] Comment on above: Performed By: #### 1 [id number] ####[address] [address] pH (U) 6.0 [pH] Invalid Interpretation Code 5.0-9.0 [facility] Comment on above: Performed By: #### 1 [id number] ####[address] [address] Protein (U) [Mass/Vol] Negative Normal Negative [facility] Comment on above: Performed By: #### 1 [id number] ####[address] [address] Specific gravity (U) [Rel density] 1.010 Invalid Interpretation Code 1.005-1.030 [facility] Comment on above: Performed By: #### 1 [id number] ####[address] [address] Type of Urine collection method Clean Catch Normal [facility] Comment on above: Performed By: #### 1 [id number] ####[address] [address] Urobilinogen Qn (U) 0.2 {Catarino'U}/dL Normal 0.0-1.0 [facility] Comment on above: Performed By: #### 1 [id number] ####[facility] [address] [place] [address] WBC Auto Ql (U) 1+ Abnormal Negative [facility] Comment on above: Performed By: #### 1 [id number] ####[facility] [address] [place] [address] WBC LM.HPF (Urine sed) [#/Area] 26-30 Abnormal 0-5 [facility] Comment on above: Performed By: #### 1 [id number] ####[facility] [address] [place] [address] Consent for Treatmenton 04-30 Consent for Treatment [id number]: 127 Normal [facility] Consent for Treatmenton Consent for Treatment [id number]: 127 Normal [facility] Heart and Vascular Office/Cl inic Noteon 05-05-2023 [...] 1 month. (more content not included)... Normal [facility] Comment on above: Result Comment: Elec tronically Signed By: Samuel VELAZQUEZ, Benjamin Lopez\.cee\Date and Time Signed: 05/05/23 16:11 EDT Physician Orderon 05-05-2023 Physician Order [id number]#[id number] :127 Normal [facility] Stress EKG Tracingson 2022 Stress EKG Tracings [id number]#1.00CD: 127 Normal [facility] Consent for Treatmenton 03-31 Consent for Treatment [id number]: 127 Normal [facility] T3Free SerPl-mCncon 04-06-20 23 Free T3 [Mass/Vol] 3.3 pg/mL Normal 2.3-4.1 [facility] Comment on above: Order Comment: Speci men Type: BLOOD SPECIMEN Ordering Facility: [facility] Address: [address] [place] [address] Performed By: #### 3 051-0, 3024-7, 3016-3 #### [facility] CLIA [id number] [address] [place] [address] [place] T4 Free SerPl-mCncon 023 Free T4 [Mass/Vol] 1.4 ng/dL Normal 0.9-1.7 [facility] Comment on above: Order Comment: Speci men Type: BLOOD SPECIMEN Ordering Facility: [facility] Address: [address] [place] [address] Performed By: #### 3 051-0, 3024-7, 3016-3 #### [facility] CLIA [id number] [address] [place] [address] OF SID THYROGLOBULIN ABon Thyroglobulin Ab Qn 1.8 [IU]/mL Normal <4.0 [facility] Comment on above: Order Comment: Speci men Type: BLOOD SPECIMEN Ordering Facility: [facility] Address: [address] [place] [address] Result Comment: The Thyroglobulin Antibody test was performed using the gopogoel DXI paramagnetic particle chemiluminescent immunoassay method. Results obtained with different assay methods or kits cannot be used interchangeably. Performed By: #### T JASON #### [facility] CLIA [id number] [address] [place] [address] [place] THYROID PEROXIDASE ANTIBODY BLOODon 04-06-2023 [place]n 4572.0 [IU]/mL High <5.6 [facility] Comment on above: Order Comment: Speci men Type: BLOOD SPECIMEN Ordering Facility: [facility] Address: [address] [address] Result Comment: Thyr oid Peroxidase Antibody test is used as an aid in diagnosis of autoimmune thyroid disease. Clinical correlation is required. Performed By: #### M ICRO #### [facility] CLIA [id number] [address] STATES OF [facility] TSH SerPl-aCncon 04-06-2023 TSH Qn 6.050 m[IU]/L High 0.270-4.200 [facility] Comment on above: Order Comment: Rozina florez Type: BLOOD SPECIMENOrdering Facility: [facility] Address: [address] [address] Result Comment: If t he patient is , TSH reference range varies by gestational period: First Trimester (weeks 9-12): 0.180-2.990 mIU/L Second Trimester: 0.110-3.980 mIU/L Third Trimester: 0.480-4.710 mIU/L Noe Ramon et al. A Practical Approach for the Verifications and Determination of Site- and Trimester-Specific Reference Intervals for Thyroid Function tests in . Thyroid, 2019:29:3:412-420. Gregor Banegas, et al. 2017 Guidelines of the [place] Thyroid Association for the Diagnosis and Management of Thyroid Disease during and the . Thyroid, 2017:27:3:315-389. Performed By: #### 3 051-0, 3024-7, 3016-3 ####[facility] [id number] [address] OF [facility] CNOVon 03-08-2023 CNOV Office Visit (ENDOLN ) -------- EMMY DALE ([id number]) 1 F Date Time Provider Department 03/08/23 [...] Arthritis Father in blood . was at [facility] when baby thought to be related [...] involuntary motions. (more content not included)... Normal [facility] Vital Signs Date Time Vital Sign Value Performing Clinician Facility 08-14-2024 09:36-0400 Body weight 101.61 kg Dami Ajith DO Work Phone: [facility] 08-14-2024 09:36-0400 Diastolic blood pressure 70 mm[Hg] Dami Ajith DO Work Phone: [facility] 08-14-2024 09:36-0400 Systolic blood pressure 120 mm[Hg] Dami Ajith DO Work Phone: [facility] 07-31-2024 08:55-0400 Body weight 99.34 kg Dami Ajith DO Work Phone: [facility] 07-31-2024 08:55-0400 Diastolic blood pressure 68 mm[Hg] Dami Ajith DO Work Phone: [facility] 07-31-2024 08:55-0400 Systolic blood pressure 112 mm[Hg] Dami Ajith DO Work Phone: [facility] 09-15-2023 13:30-0500 Body height 162.56 cm P[facility] Other [facility] Other 09-15-2023 13:30-0500 Body mass index (BMI) [Ratio] 30.21 kg/m2 [facility] Other [facility] Other 09-15-2023 13:30-0500 Body weight 79.83 kg P[facility] Other [facility] Other 09-15-2023 13:30-0500 Diastolic blood pressure 68 mm[Hg] [facility] Other [facility] Other 09-15-2023 13:30-0500 Respiratory rate 18 /min Lyndon Easterwood Other [facility] Other 09-15-2023 13:30-0500 SaO2% (BldA) [Mass fraction] 99 % Lyndon Easterwood Other [facility] Other 09-15-2023 13:30-0500 Systolic blood pressure 118 mm[Hg] Lyndon Easterwood Other [facility] Other 07-12-2023 09:15-0400 Body height 162.56 cm Lyndon Easterwood Other [facility] Other 07-12-2023 09:15-0400 Body mass index (BMI) [Ratio] 29.86 kg/m2 Lyndon Easterwood Other [facility] Other 07-12-2023 09:15-0400 Body temperature 98.6 [degF] Lyndon Easterwood Other [facility] Other 07-12-2023 09:15-0400 Body weight 78.93 kg Lyndon Easterwood Other [facility] Other 07-12-2023 09:15-0400 Diastolic blood pressure 70 mm[Hg] Lyndon Easterwood Other [facility] Other 07-12-2023 09:15-0400 Respiratory rate 20 /min Lyndon Easterwood Other [facility] Other 07-12-2023 09:15-0400 SaO2% (BldA) [Mass fraction] 98 % Lyndon Easterwood Other [facility] Other 07-12-2023 09:15-0400 Systolic blood pressure 112 mm[Hg] Lyndon Easterwood Other [facility] Other 05-25-2023 17:30-0400 Body height 162.56 cm Lyndon Easterwood Other [facility] Other 05-25-2023 17:30-0400 Body mass index (BMI) [Ratio] 30.04 kg/m2 Lyndon Easterwood Other [facility] Other 05-25-2023 17:30-0400 Body temperature 98.2 [degF] Lyndon Easterwood Other [facility] Other 05-25-2023 17:30-0400 Body weight 79.38 kg Lyndon Easterwood Other [facility] Other 05-25-2023 17:30-0400 Diastolic blood pressure 72 mm[Hg] Lyndon Easterwood Other [facility] Other 05-25-2023 17:30-0400 Respiratory rate 20 /min Lyndon Easterwood Other [facility] Other 05-25-2023 17:30-0400 SaO2% (BldA) [Mass fraction] 99 % Lyndon Easterwood Other [facility] Other 05-25-2023 17:30-0400 Systolic blood pressure 110 mm[Hg] Lyndon Easterwood Other [facility] Other 03-08-2023 16:13-0400 Body weight 83.92 kg Martina Rodriguez MD, PhD Work Phone: [facility] 03-08-2023 16:13-0400 Diastolic blood pressure 76 mm[Hg] Martina Rodriguez MD, PhD Work Phone: [facility] 03-08-2023 16:13-0400 Systolic blood pressure 116 mm[Hg] Martina Rodriguez MD, PhD Work Phone: [facility] 08-05-2022 16:00-0400 Body height 162.56 cm Lyndon Joseerwood Other [facility] Other 08-05-2022 16:00-0400 Body mass index (BMI) [Ratio] 32.78 kg/m2 Lyndon Easterwood Other [facility] Other 08-05-2022 16:00-0400 Body temperature 98 [degF] Lyndon Easterwood Other [facility] Other 08-05-2022 16:00-0400 Body weight 86.64 kg Lyndon Joseerwood Other [facility] Other 08-05-2022 16:00-0400 Diastolic blood pressure 76 mm[Hg] Lyndon Easterwood Other [facility] Other 08-05-2022 16:00-0400 Respiratory rate 20 /min Lyndon Plasmonixerwood Other [facility] Other 08-05-2022 16:00-0400 SaO2% (BldA) [Mass fraction] 99 % Lyndon Easterwood Other [facility] Other 08-05-2022 16:00-0400 Systolic blood pressure 122 mm[Hg] Lyndon Easterwood Other [facility] Other Encounters Encounter Date Encounter Type Care Provider Facility Start: 08-14-2024 End: 08-14-2024 Bamboo flowsheet Dami [...] 07-23-2024 End: 07-23-2024 ambulatory Dami R AJITH [place] Start: 07-19-2024 End: 07-19-2024 ambulatory LELE ALEJO Not Available Start: 07-05-2024 End: 07-05-2024 ambulatory DAMI AJITH Not Available Start: 06-25-2024 End: 06-25-2024 ambulatory DAMI AJITH Not Available Start: 06-25-2024 End: 06-25-2024 ambulatory LELE ALEJO [place] Start: 06-12-2024 End: 06-12-2024 ambulatory DAMI R AJITH [facility] Start: 06-04-2024 End: 06-04-2024 ambulatory LELE ALEJO Not Available Start: 05-14-2024 End: 05-14-2024 ambulatory DAMI R AJITH [facility] Start: 05-08-2024 End: 05-08-2024 ambulatory DAMI AJITH Not Available Start: 04-09-2024 End: 04-09-2024 ambulatory DAMI AJITH Not Available Start: 04-04-2024 ambulatory Dami R AJITH [place] [facility] [place] Start: 03-12-2024 End: 03-12-2024 ambulatory DAMI AJITH Not Available Start: 02-24-2024 End: 02-24-2024 ambulatory DAMI AJITH Not Available Start: 12-04-2023 End: 12-04-2023 ambulatory Lyndon Joseerwood Other [facility] Other Start: 12-04-2023 Encounter by Tresorit Lyndonjessica Garciaerwood [facility] Start: 11-05-2023 End: 11-05-2023 ambulatory Lyndon Easterwood Other [facility] Other Start: 11-05-2023 Encounter by Tresorit Lyndon Garciaerwood [facility] Start: 10-25-2023 End: 10-25-2023 ambulatory Lyndon J Easterwood Facility:[facility] Start: 10-10-2023 End: 10-10-2023 ambulatory Lyndon Easterwood Other [facility] Other Start: 10-10-2023 Telephone encounter Lyndon Jsoeerwood [facility] Start: 09-26-2023 End: 09-26-2023 ambulatory Lyndon Easterwood Other [facility] Other Start: 09-26-2023 Telephone encounter Lyndon Joseerwood [facility] Start: 09-18-2023 End: 09-18-2023 ambulatory Lyndon Easterwood Other [facility] Other Start: 09-18-2023 Telephone encounter Lyndon Fallwood [facility] Start: 09-15-2023 End: 09-15-2023 ambulatory LYNDON [facility] Other Start: 09-15-2023 Office outpatient visit 25 minutes Lyndon Fallmacon [facility] Start: 08-18-2023 End: 08-18-[address] [facility] Facility:[facility] Start: 08-05-2023 Get Medical Advice Martina Rodriguez MD, PhD Work Phone: Endocrinology Comment on above: lab orders Start: 07-22-2023 End: 07-22-2023 ambulatory Lyndon [facility] Other [facility] Other Start: 07-22-2023 Telephone encounter Lyndon Fallmacon [facility] [employer] Start: 07-12-2023 End: 07-12-2023 [facility] Other Start: 07-12-2023 Office outpatient visit 25 minutes Lyndon Fallmacon [facility] Start: 07-12-2023 Telephone encounter Lyndon Dalal [facility] Start: 07-08-2023 End: 07-08-2023 ambulatory SOBEIDA THOMPSON Facility[place] [place] Start: 06-27-2023 End: 06-27-2023 ambulatory Lyndon Fallmacon Other [facility] Other Start: 06-27-2023 Telephone encounter Lyndon Fallwood [facility] Start: 06-21-2023 End: 06-21-2023 ambulatory SOBEIDA THOMPSON Facility:[facility] Start: 06-01-2023 End: 06-01-2023 ambulatory Benjamin BAKER [place] Start: 06-01-2023 End: 06-01-2023 ambulatory Bill Kat Facility:[facility] Start: 05-26-2023 End: 05-26-2023 ambulatory LYNDON JOSENEDA Facility:[facility] Start: 05-25-2023 End: 05-25-2023 ambulatory LYNDON [facility] Other Start: 05-25-2023 Office outpatient visit 15 minutes Lyndon Dalal [facility] Start: 05-17-2023 End: 05-17-2023 ambulatory Benjamin BAKER Facility[place] Start: 05-05-2023 End: 05-05-2023 ambulatory Benjamin BAKER Facility[place] Start: 04-15-2023 End: 04-15-2023 ambulatory Benjamin BAKER Facility[place] Start: 04-06-2023 End: 04-06-2023 ambulatory MARTINA RODRIGUEZ Facility:[facility] Start: 03-08-2023 End: 03-08-2023 ambulatory MARTINA RODRIGUEZ Facility:[facility] Start: 03-08-2023 End: 03-08-2023 Patient encounter procedure Martina Rodriguez MD, PhD Work Phone: Endocrinology Comment on above: Vikki's thyroidi tis (Primary Dx) Start: 02-28-2023 End: 02-28-2023 ambulatory Lyndon Dalal Other [facility] Other Start: 02-28-2023 Telephone encounter yLndon Dalal [facility] Start: 02-21-2023 End: 02-21-2023 ambulatory 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 Lyndon Dalal Work Phone: [facility] Work Phone: Start: 02-21-2023 End: 02-21-2023 Discharged Recurring 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 Lyndon Dalal Work Phone: [facility] [place] Work Phone: Start: 08-09-2022 End: 08-09-2022 ambulatory Lyndon Dalal Other [facility] Other Start: 08-09-2022 Telephone encounter Lyndon Dalal [facility] Start: 08-05-2022 End: 08-06-2022 Emergency department patient visit Lyndno Dalal Facility:[facility] Start: 08-05-2022 End: 08-05-2022 ambulatory Lyndon Dalal Other [facility] Other Start: 08-05-2022 Office outpatient visit 40 minutes Lyndon Dalal [facility] Procedures Date Procedure Procedure Detail Performing Clinician Start: 08-14-2024 Urnls dip stick/tabl et rgnt non-auto w/o micrscp Dami Ajith DO Work Phone: Start: 07-31-2024 Urnls dip stick/tabl et rgnt non-auto w/o micrscp Dami Ajith DO Work Phone: Plan of Treatment Date Care Activity Detail Author Start: 09-17-2024 End: 09-17-2024 Patient encounter procedure 09/17/2024 8:40 AM EST Routine [facility] [address] [place] [id number] Dami Canseco, DO [address] [place] [address] [facility] Start: 09-10-2024 End: 09-10-2024 Patient encounter procedure 09/10/2024 8:40 AM EST Routine [facility] [address] [place] [address] Dami Canseco, DO [address] [place] [address] [facility] Start: 09-03-2024 End: 09-03-2024 Patient encounter procedure 09/03/2024 8:40 AM EST Routine [facility] [address] [place] [id number] Dami Canseco, DO [address] [place] [address] [facility] Start: 08-27-2024 End: 08-27-2024 Patient encounter procedure 08/27/2024 8:40 AM EDT Routine [facility] [address] [place] [id number] Dami Canseco, DO [address] [place] [address] [facility] Start: 08-14-2024 End: 08-14-2024 Patient encounter procedure [facility] Comment on above: Arrived Start: 08-06-2024 End: 08-06-2024 Professional / ancillary services management 08/06/2024 8:00 AM EDT Ancillary Procedure [facility] [address] [facility] [facility] [place] [address] [facility] Start: 07-31-2024 End: 07-31-2024 Patient encounter procedure 07/31/2024 8:50 AM EDT Routine [facility] [address] [facility] [facility] [place] [address] Dami Canseco, DO [address] [place] [address] Arrived [facility] Comment on above: Arrived Start: 07-01-2024 Influenza vaccination Influenza Vacc ine (#1) [facility] Start: 08-08-2023 End: 10-08-2023 Thyrotropin [Units/volume] in Serum or Plasma TSH BLD Lab Routine Vikki's thyroiditis Expected: 08/08/2023, Expires: 10/08/2023 [facility] Work Phone: Comment on above: Expected: 08/08/2023 , Expires: 10/08/2023 Start: 08-08-2023 End: 10-08-2023 Thyroxine (T4) free [Mass/volume] in Serum or Plasma T4 FREE/FREE THYROX Lab Routine Vikki's thyroiditis Expected: 08/08/2023, Expires: 10/08/2023 [facility] Work Phone: Comment on above: Expected: 08/08/2023 , Expires: 10/08/2023 Start: 07-07-2023 Urine microalbumin profile [facility] Start: 07-01-2023 Covid-19 Vaccine () Covid-19 Vaccine () [facility] Start: 07-01-2023 Influenza vaccination Influenza Vacc ine (#1) [facility] Start: 03-31-2023 End: 05-31-2023 Thyroglobulin Ab [Units/volume] in Serum or Plasma THYROGLOBULIN AB Lab Routine Vikki's thyroiditis Expected: 03/31/2023, Expires: 05/31/2023 [facility] Work Phone: Comment on above: Expected: 03/31/2023 , Expires: 05/31/2023 Start: 03-31-2023 End: 05-31-2023 THYROID PEROXIDASE ANTIBODY BLOOD THYROID PEROXIDASE ANTIBODY BLOOD Lab Routine Vikki's thyroiditis Expected: 03/31/2023, Expires: 05/31/2023 [facility] Work Phone: Comment on above: Expected: 03/31/2023 , Expires: 05/31/2023 Start: 03-31-2023 End: 05-31-2023 Thyrotropin [Units/volume] in Serum or Plasma TSH BLD Lab Routine Vikki's thyroiditis Expected: 03/31/2023, Expires: 05/31/2023 [facility] Work Phone: Comment on above: Expected: 03/31/2023 , Expires: 05/31/2023 Start: 03-31-2023 End: 05-31-2023 Thyroxine (T4) free [Mass/volume] in Serum or Plasma T4 FREE/FREE THYROX Lab Routine Vikki's thyroiditis Expected: 03/31/2023, Expires: 05/31/2023 [facility] Work Phone: Comment on above: Expected: 03/31/2023 , Expires: 05/31/2023 Start: 03-31-2023 End: 05-31-2023 Triiodothyronine (T3) Free [Mass/volume] in Serum or Plasma T3 FREE BLD Lab Routine Vikki's thyroiditis Expected: 03/31/2023, Expires: 05/31/2023 [facility] Work Phone: Comment on above: Expected: 03/31/2023 , Expires: 05/31/2023 Start: 10-31-2022 DEPRESSION ASSESSMENT DEPRESSION ASS ESSMENT [facility] Start: 2021 PAP TESTING PAP TESTING [facility] Start: 02-02-2021 COVID-19 VACCINE (3 - Booster for Pfizer series) COVID-19 VACCINE (3 - Booster for Pfizer series) [facility] Start: 2018 CHLAMYDIA SCREENING (18-24) CHLAMYDIA SCREENING (18-24) [facility] Start: 2018 GC (GONORRHEA) SCREE MICHELLE (18-24) GC (GONORRHEA) SCREENING (18-24) [facility] Start: 2018 HEPATITIS C SCREENING HEPATITIS C SC REENING [facility] Start: 2018 HIV SCREENING HIV SCREENING [facility] Start: 2016 Meningococcal B Vacc ine: Consider Based On Risk (2 of 2 - Risk Bexsero 2-dose series) Meningococcal B Vaccine: Consider Based On Risk (2 of 2 - Risk Bexsero 2-dose series) [facility] Start: 2016 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 (2 of 2 - Risk Bexsero 2-dose series) MENINGOCOCCAL B: Consider based on risk (2 of 2 - Risk Bexsero 2-dose series) [facility] Start: 2014 PEDS TO ADULT TRANSI TION ANNUAL ASSESSMENT PEDS TO ADULT TRANSITION ANNUAL ASSESSMENT [facility] Start: 2012 PEDS TO ADULT TRANSI TION INITIAL DISCUSSION PEDS TO ADULT TRANSITION INITIAL DISCUSSION [facility] Immunizations Immunization Date Immunization Notes Care Provider Fa ortegaty 09-19-2022 influenza, injectabl e, quadrivalent, contains preservative Lyndon Easterwood Other [facility] Other 07-19-2022 influenza virus vaccine, unspecified formulation Martina Rodriguez MD, PhD Work Phone: [facility] 12-08-2020 Do not use COVID-19 Pfizer 2 dose Lyndon Easterwood Other [facility] Other 11-17-2020 Do not use COVID-19 Pfizer 2 dose Lyndon Easterwood Other [facility] Other 07-31-2020 influenza, injectabl e, quadrivalent, contains preservative Lyndon Easterwood Other [facility] Other 10-18-2016 influenza, injectabl e, quadrivalent, contains preservative Martina Rodriguez MD, PhD Work Phone: [facility] 08-04-2015 influenza, injectabl e, quadrivalent, contains preservative Martina Rodriguez MD, PhD Work Phone: [facility] 04-23-2014 human papilloma viru s vaccine, quadrivalent Martina Rodriguez MD, PhD Work Phone: [facility] 09-29-2013 human papilloma viru s vaccine, quadrivalent Martina Rodriguez MD, PhD Work Phone: [facility] 07-07-2013 human papilloma viru s vaccine, quadrivalent Martina Rodriguez MD, PhD Work Phone: [facility] 07-07-2013 meningococcal polysaccharide (groups A, C, Y and W-135) diphtheria toxoid conjugate vaccine (MCV4P) Martina Rodriguez MD, PhD Work Phone: [facility] Work Phone: 07-07-2013 tetanus toxoid, redu ollie diphtheria toxoid, and acellular pertussis vaccine, adsorbed Martina Rodriguez MD, PhD Work Phone: [facility] 08-04-2009 influenza virus vaccine, unspecified formulation Martina Rodriguez MD, PhD Work Phone: [facility] 07-05-2008 hepatitis A vaccine, unspecified formulation Martina Rodriguez MD, PhD Work Phone: [facility] 09-09-2007 influenza virus vaccine, unspecified formulation Martina Rodriguez MD, PhD Work Phone: [facility] Work Phone: 06-19-2007 hepatitis A vaccine, unspecified formulation Martina Rodriguez MD, PhD Work Phone: [facility] 06-19-2007 varicella virus vaccine Parth Rodriguez MD, PhD Work Phone: [facility] 09-14-2006 influenza virus vaccine, unspecified formulation Martina Rodriguez MD, PhD Work Phone: [facility] 05-13-2006 diphtheria, tetanus toxoids and acellular pertussis vaccine Martina Rodriguez MD, PhD Work Phone: [facility] Work Phone: 05-13-2006 measles, mumps and rubella virus vaccine Martina Rodriguez MD, PhD Work Phone: [facility] Work Phone: 05-13-2006 poliovirus vaccine, inactivated Martina Rodriguez MD, PhD Work Phone: [facility] Work Phone: 05-13-2006 varicella virus vaccine Parth Rodriguez MD, PhD Work Phone: [facility] Work Phone: 07-26-2005 influenza virus vaccine, unspecified formulation Martina Rodriguez MD, PhD Work Phone: [facility] Work Phone: 07-30-2004 influenza virus vaccine, unspecified formulation Martina Rodriguez MD, PhD Work Phone: [facility] Work Phone: 06-30-2002 diphtheria, tetanus toxoids and acellular pertussis vaccine Martina Rodriguez MD, PhD Work Phone: [facility] Work Phone: 06-30-2002 poliovirus vaccine, inactivated Martina Rodriguez MD, PhD Work Phone: [facility] Work Phone: 04-04-2002 haemophilus influenz ae type b vaccine, HbOC conjugate Martina Rodriguez MD, PhD Work Phone: [facility] Work Phone: 04-04-2002 measles, mumps and rubella virus vaccine Martina Rodriguez MD, PhD Work Phone: [facility] Work Phone: 12-16-2001 hepatitis B vaccine, pediatric or pediatric/adolescent dosage Martina Rodriguez MD, PhD Work Phone: [facility] Work Phone: 12-16-2001 pneumococcal conjuga te vaccine, 7 valent Martina Rodriguez MD, PhD Work Phone: [facility] Work Phone: 09-30-2001 pneumococcal conjuga te vaccine, 7 valent Martina Rodriguez MD, PhD Work Phone: [facility] Work Phone: 06-24-2001 diphtheria, tetanus toxoids and acellular pertussis vaccine Martina Rodriguez MD, PhD Work Phone: [facility] Work Phone: 06-24-2001 haemophilus influenz ae type b vaccine, HbOC conjugate Martina Rodriguez MD, PhD Work Phone: [facility] Work Phone: 06-24-2001 pneumococcal conjuga te vaccine, 7 valent Martina Rodriguez MD, PhD Work Phone: [facility] Work Phone: 04-12-2001 diphtheria, tetanus toxoids and acellular pertussis vaccine Martina Rodriguez MD, PhD Work Phone: [facility] Work Phone: 04-12-2001 haemophilus influenz ae type b vaccine, HbOC conjugate Martina Rodriguez MD, PhD Work Phone: [facility] Work Phone: 04-12-2001 poliovirus vaccine, inactivated Martina Rodriguez MD, PhD Work Phone: [facility] Work Phone: 02-03-2001 diphtheria, tetanus toxoids and acellular pertussis vaccine Martina Rodriguez MD, PhD Work Phone: [facility] Work Phone: 02-03-2001 haemophilus influenz ae type b vaccine, HbOC conjugate Martian Rodriguez MD, PhD Work Phone: [facility] Work Phone: 02-03-2001 poliovirus vaccine, inactivated Martina Rodriguez MD, PhD Work Phone: [facility] Work Phone: 2000 hepatitis B vaccine, pediatric or pediatric/adolescent dosage Martina Rodriguez MD, PhD Work Phone: [facility] Work Phone: 2000 hepatitis B vaccine, pediatric or pediatric/adolescent dosage Martina Rodriguez MD, PhD Work Phone: [facility] Work Phone: Payers Date Payer Category Payer Private Health Insurance [id number] 2024 Unknown [id number] 2023 Unknown [id number] 2022 Private Health Insurance [id number] 2022 Self-pay 2020 Private Health Insurance [id number] [id number] 2020 Private Health Insurance [id number]. [id number] 2000 Unknown [id number] 2.16.840.1.397681.3.579.2.7 2000 Unknown [id number] 2.16.840.1.469668.3.579.2. 2000 Unknown [id number] 2.16.840.1.376780.3.579.2. 2000 Unknown [id number] 2.16.840.1.786526.3.579.2. 2000 Unknown [id number] 2.16.840.1.953093.3.579.2. 2000 Unknown [id number] 2.16.840.1.998976.3.579.2. 2000 Unknown [id number] 2.16.840.1.468693.3.579.2. 2000 Unknown [id number] 2.16.840.1.784190.3.579.2 2000 Unknown [id number] 2.16.840.1.673350.3.579.2. 2000 Unknown [id number] 2.16.840.1.007187.3.579.2. 2000 Unknown [id number] 2.16.840.1.851428.3.579.2. 2000 Unknown [id number] 2.16.840.1.305320.3.579.2.1285 2000 Unknown [id number] 2.16.840.1.285410.3.579.2.1285 2000 Unknown [id number] 2.16.840.1.965575.3.579.2.1285 2000 Unknown [id number] 2.16.840.1.230489.3.579.2. 2000 Unknown [id number] 2.16.840.1.922438.3.579.2 2000 Unknown [id number] 2.16.840.1.648485.3.579.2.9 2000 Unknown [id number] 2.16.840.1.490577.3.579.2.9 2000 Unknown [id number] 2.16.840.1.739338.3.579.2.9 2000 Unknown [id number] 2.16.840.1.615563.3.579.2.9 2000 Unknown [id number] 2.16.840.1.924277.3.579.2.9 2000 Unknown [id number] 2.16.840.1.332690.3.579.2.1258 2000 Unknown [id number] 2.16.840.1.639776.3.579.2.1258 2000 Unknown [id number] 2.16.840.1.335269.3.579.2.9 2000 Unknown [id number] 2.16.840.1.854762.3.579.2.9 2000 Unknown [id number] 2.16.840.1.975254.3.579.2.1259 Private Health Insurance [facility] [id number] Unknown [id number] 2.16.840.1.654942.3.579.2.531 Unknown [facility] Employees [id number] Unknown [id number] 2.16.840.1.502115.3.579.2.531 Social History Date Type Detail Facility Start: 03-08-2023 End: 07-05-2024 Sex Assigned At [facility] [employer] [employer] Other Start: 09-27-2014 End: 07-05-2024 Tobacco smoking status SDIS Never smoked tobacco [facility] History of tobacco use Passive smoker [facility] Start: 03-08-2023 Alcohol intake Not Asked Joni chase [facility] Start: 2000 Sex Assigned At Not on file C [facility] Start: 2000 Sex Assigned At Female F [facility] Start: 03-08-2023 End: 07-05-2024 History of Social function [facility] Start: 07-05-2024 Tobacco use and exposure Smokeless tobacco non-user [facility] Start: 07-19-2024 End: 08-14-2024 Alcoholic beverage intake Ex-drinker (finding) [facility] Start: 01-06-2024 [facility] Malgorzatat pamela Clinical Notes 09-09-2009 to 08-14-2024 Mar [...] 4 mg, Oral, Every 6 hours PRN Zbldxmdn-Sws-Hy-FA ( 1 + IRON PO) ALLERGIES Allergies [...] nursing note reviewed. Exam conducted with a exhibitor sales present. Vitals: There is no height or [...] Dami Canseco DO documented in this encounter [facility] 07-31-2024 History of Presen t illness [...] 4 mg, Oral, Every 6 hours PRN Egnzxhaw-Yat-Oj-FA ( 1 + IRON PO) ALLERGIES Allergies [...] Dami Canseco DO documented in this encounter [facility] 09-15-2023 Evaluation note Encounter Date Diagnosis [...] in office today for physical therapy to [facility]. Discussed continuation of kbhh-oxh-sljmdgd medications as needed. Take muscle relaxer as [...] in office today for physical therapy to [facility]. Discussed continuation of ufgo-btu-iyamryc medications as needed. Take muscle relaxer as [...] that were not corrected during review process. [facility] Other 09-12-2023 Evaluation note* Encounter Date Diagnosis [...] that were not corrected during review process. [facility] Other 07-26-2023 Evaluation note* Encounter Date Diagnosis [...] that were not corrected during review process. [facility] Other 06-18-2023 NoteEchocardiology Procedure Exam Date/Time Accession # Ordering ECG Stress Exercise 04/15/2023 08:43 EDT [id number] Benjamin Baker MD CPT code 67279 Reason for Exam (ECG Stress Exercise) I95.1;Dizziness [...] Benjamin Baker MD Transcribed by: angela Technologist: [facility]06-16-2023 Note Echocardiology Procedure Exam Date/Time Accession # Ordering Echo Transthoracic 04/15/2023 09:42 EDT [id number] Benjamin Baker MD Complete CPT code 76698 64099 Reason for Exam (Echo Transthoracic Complete) I95.9;Hypotension Report [facility] [address] [place] [address] Adult Echocardiogram Report Name: EMMY DALE Study Date: 04/15/2023 09:02 AM BP: 105/71 mmHg Patient Location: [facility] HR: 75 : 2000 Gender: Female Height: 63 in Age: 22 yrs Ethnicity: T Weight: 178 lb Reason For Study: Hypotension BSA: 1.8 m2 History: No cardiac history per patient Ordering Physician: Samuel^Benjamin^John Referring Physician: Benjamin Baker Performed By: Jonelle Alvarez, [facility] Interpretation Summary Ejection Fraction = 60-65%. The [...] Benjamin Baker MD Transcribed by: YOVANI Technologist: [facility]05-09-2023 Note HNO ID: [id number] Author: Martina Rodriguez MD, PhD Service: ? [...] Arthritis Father in blood . was at [facility] when baby thought to be related [...] Plan: Will monitor thyroid (more content not included)...[facility] 03-08-2023 History of Present illness Narrative* [...] Arthritis Father in blood . was at [facility] when baby thought to be related [...] Martina Rodriguez MD, PhD [facility]* Encounter Date Diagnosis Assessment [...] I would recommend referral to a different esthetician makeup artist. Patient does have the name of an esthetician makeup artist that she would like referred to. We will put that referral in today. Dr. Roger Kim - [facility] Endocrinology, [facility] February, Dizziness (ICD-10 - R42) Discussed her [...] that were not corrected during review process. [facility] Other 10-06-2022 Evaluation note* Encounter Date Diagnosis [...] to ER, I highly recommend she call [facility] the second she leaves our office to follow-up.She needs to let them know about her concerns.I explained to her that even though she may assume that her [facility] will not listen her , I still want her to reach out to that office and explained to them her current concerns. She wants to know what the immediate treatment would be and work-up for spinal headache and possible leak however I cannot provide her with this information as I am not [facility]. Jul, Hip pain (ICD-10 - M25.559) While [...] I did discuss with her concerns over bsll-iwk-ohqvywe medications during breast-feeding. Discussed recommendations currently and please bring this up to [facility] as well for further recommendations. Does not [...] I would like her to follow-up with [facility] or go to ER regarding this dizziness and we can follow-up in office after. If nothing comes from an [facility]/spinal headache/spinal leak standpoint, we can order CT [...] that were not corrected during review process. [facility] Other 11-10-2009 History of Past illness Narrative* Problem Noted Date Resolved Date Constipation 09/09/2009 08/28/2014 documented as of this encounter (statuses as of 03/09/2023) [facility] History of Past illness Narrative* Problem Noted Date Diagnosed Date Resolved Date Constipation 09/09/2009 08/28/2014 documented as of this encounter (statuses as of 08/09/2023) [facility]No InformationN[facility] [employer] Other Evaluation note* Diagnosis Vikki's thyroiditis- Primary Chronic lymphocytic thyroiditis [facility] information [facility] Work Phone: Evaluation note* Diagnosis Vikki's thyroiditis- Primary Chronic lymphocytic thyroiditis [facility]* Diagnosis 31 weeks gestation of Third [...] Vikki's thyroiditis Medical History Pre-eclampsia Surgical History [place] teeth extract 2017 Surgical History Vaginal childbirth 03/2022 Hospitalization History See surgical [facility] Other History general Narrative - Reported* Type Description Date Medical History Exercise-induced asthma Medical History Pityriasis rosea Medical History Tachycardia Medical History Vikki's thyroiditis Medical History Asthma Medical History Pre-eclampsia Medical History Hypotension Surgical History [place] teeth extract 2017 Surgical History Vaginal childbirth 03/2022 Hospitalization History See surgical hx [facility] Other History general Narrative - Reported* Type Description Date Medical History Exercise-induced asthma Medical History Pityriasis rosea Medical History Tachycardia Medical History Vikki's thyroiditis Medical History Asthma Medical History Pre-eclampsia Medical History Hypotension Medical History GERD (gastroesophageal reflux di sease) Surgical History [place] teeth extract 2016 Surgical History Vaginal childbirth 03/2022 Surgical History EGD/colonoscopy 2011 Hospitalization History See surgical hx [facility] Other History general Narrative - Reported* Type Description Date Medical History Exercise-induced asthma Medical History Pityriasis rosea Medical History Tachycardia Medical History Vikki's thyroiditis Medical History Asthma Medical History Pre-eclampsia Medical History Hypotension Medical History GERD (gastroesophageal reflux di sease) Medical History Thyromegaly Surgical History [place] teeth extract 2017 Surgical History Vaginal childbirth 03/2022 Surgical History EGD/colonoscopy 2011 Hospitalization History See surgical [facility] Other [employer] general Narrative - Reported* Type Description Date Medical History Exercise-induced asthma Medical History Pityriasis rosea Medical History Tachycardia Medical History Vikki's thyroiditis Medical History Asthma Medical History Pre-eclampsia Medical History Hypotension Medical History GERD (gastroesophageal reflux di sease) Medical History Thyromegaly Medical History Other idiopathic scoliosis, thor acic region Surgical History [place] teeth extract 2017 Surgical History Vaginal childbirth 03/2022 Surgical History EGD/colonoscopy 2011 Hospitalization History See surgical [facility] Other Summary Purpose Family History No Family [...] gastriti s with hemorrhage (K29.01) Referral Organization [facility] [employer] Referring Provider First Name Lyndon Referring Provider Last Name [facility] Referring Provider Specialty Nurse Pract itioner Referred Organization [facility] Referred Provider Patricio Urena Referred Address [address] [address] ,[place], [place],[address] Referred Provider Specialty Gastroentero logy Referral Priority Routine General [facility] 10:08:56 AM >Received today. [facility] request us to fill out their form and fax to them. They will review the referral and call patient to schedule them. Referral was fax. [facility] 01:31:38 PM >Per telephone encounter, patient wants to try [facility]. Sent P2P Reason *03/08 Dr. Hawa Kim - [facility] Endocrinology, [facility]; [employer]- please send this note with 2 previous notes Diagnosis 1 Vikki's thyroidi tis (E06.3) Referral Organization [facility] [employer] Referring Provider First Name Lyndon Referring Provider Last Name [facility] Referring Provider Specialty Nurse Pract itioner Referred Organization [facility] Referred Address [address] [place], [place],[address] Referred Provider Specialty Endocrinolog y Referral Priority Routine General Notes [facility] 023 01:21:05 PM >Received today and referral was fax with the [facility] Form. They will review and call patient to schedule Reason *03/08 Dizzines s- TERRENCE; Please send this note with 2 previous notes Diagnosis 1 Dizziness (R42) Referral Organization [facility] [employer] Referring Provider First Name Lyndon Referring Provider Last Name [facility] Referring Provider Specialty Nurse Pract itioner Referred Organization [facility] Referred Provider Jose Dominguez Referred Address [address] [place], [place],[address] Referred Provider Specialty Neurology Referral Priority Routine [...] section and content) DATE CREATED AUTHOR 08/06/2022 [facility] DATE CREATED AUTHOR AUTHOR'S ORGANIZ ATION 08/20/2023 [facility] DATE CREATED AUTHOR AUTHOR'S ORGANIZ ATION 04/06/2024 Millan Fairfax [facility] DATE CREATED AUTHOR AUTHOR'S ORGANIZ ATION 05/03/[address] [facility] DATE CREATED AUTHOR AUTHOR'S ORGANIZ ATION 05/18/2024 [facility] DATE CREATED AUTHOR AUTHOR'S ORGANIZ ATION 06/14/2024 [facility] DATE CREATED AUTHOR AUTHOR'S ORGANIZ ATION 06/26/2024 Millan Nilton [facility] DATE CREATED AUTHOR AUTHOR'S ORGANIZ ATION 07/07/2024 [facility] DATE CREATED AUTHOR AUTHOR'S ORGANIZ ATION 07/24/2024 Millan Nilton [facility] DATE CREATED AUTHOR AUTHOR'S ORGANIZ ATION 07/29/2024 Millan Fairfax [facility] DATE CREATED AUTHOR AUTHOR'S ORGANIZ ATION 08/16/2024 [facility] DATE CREATED AUTHOR AUTHOR'S ORGANIZ ATION 08/21/2024 [facility] REASON FOR VISIT (unrecogniz ed section and content) Reason Comments New Patient Reason Comments Routine Visit Source Comments (unrecognize d section and content) In the event this informatio n is protected by the Federal Confidentiality of Alcohol and Drug Abuse Patient Records regulations: The Federal rules restrict any use of the information to criminally investigate or prosecute any alcohol or drug abuse patient.[facility] the event this information is protected by the Federal Confidentiality of Alcohol and Drug Abuse Patient Records regulations: The Federal rules restrict any use of the information to criminally investigate or prosecute any alcohol or drug abuse patient.[facility] Care Teams (unrecognized sec tion and content) Supervisor Counseling And Guidance Relationship Specialty Start Date End Date Lyndon Dalal CNP [address] [address] PCP - General Family Medicine 03/08/23 Lyndon Dalal CNP [address] [address] Referring Family Medicine 03/04/23 Team Status: Active Member Role Status Dates Lyndon Dalal APRN Primary Care Provider Active Team Status: Inactive Member Role Status Dates Lyndon Dalal APRN Primary Care Provider, Attend ing Provider Active Supervisor Counseling And Guidance Relationship Specialty Start Date End Date Lyndon Dalal CNP [address] [address] PCP - General Family Medicine 03/08/23 Lyndon Dalal CNP [address] [address] Referring Family Medicine 03/04/23 Supervisor Counseling And Guidance Relationship Specialty Start Date End Date Ge Cloud MD [address] [address] PCP - General Family Medicine 01/25/24 Supervisor Counseling And Guidance Relationship Specialty Start Date End Date Ge Cloud MD [address] [address] PCP - General Family Medicine 01/25/24 Goals [...] BE BASED ON THE PRIMARY CLINICAL RECORDS. [employer] [facility]. provides no warranty or guarantee of the accuracy or completeness of information in this document.
[2024-08-22 17:57] VITALS: BP 121/60; PULSE 99
== END 2024-08-22 19:23 | disposition home or self-care (01) ==
LOC: FBCO 06:58 → FBC 17:53
PROVIDERS: PCP Family Medicine; Visit Provider Obstetrics & Gynecology
DX: O99.283 Endocrine, nutritional and metabolic diseases complicating pregnancy, third trimester (principal); Z3A.34 34 weeks gestation of pregnancy
CPT/HCPCS: 59025

== ENCOUNTER 2024-08-25 06:49 | Outpatient (OUT) | payer OTHER, SELFPAY ==
--- NOTE | 2024-08-25 | US_ITS ---
[address] [address] Patient Name: EMMY DALE MRN: [id number] date: 2000 Sex: F Assigned Patient Location: [facility] Current Patient Location: Accession/Order Number: [id number] Exam Date: 08/25/2024 14:00 Report Date: 08/27/2024 04:36 At the request of: LELE ALEJO Procedure: US OB BPP w non-stress EXAMINATION: US OB BPP w non-stress HISTORY:HX PRE ECLAMPSIA Z87.59 THYROID DISEASE E07.9 COMPARISON: Ultrasound OB biophysical 08/18/2024 TECHNIQUE: Ultrasound biophysical profile was performed in the radiology department. BREATHING MOVEMENTS: 2 GROSS BODY MOVEMENTS: 2 TONE: 2 QUALITATIVE AMNIOTIC FLUID VOLUME: 2 PRESENTATION: CEPHALIC HEART RATE: 127.36 bpm AMNIOTIC FLUID VOLUME: 13.37 cm GESTATIONAL AGE: 35 weeks 1 day US/US OB BPP w non-stress IMPRESSION: Total biophysical profile score: 8 Electronically authenticated by: ANGELY NUR Date: 08/27/2024 04:36
--- OUTSIDE RECORDS SUMMARY | 2024-08-25 06:51 | XMS_ITS | CCD ---
Author Organization [facility] Care Team Providers Care Library Cataloging Technician Name Role Phone Lyndon Dalal Primary Care Unavailable Juancarlos Maria Attending Unavailable Juancarlos Maria Admitting Unavailable Lyndon Dalal Unavailable Lyndon Dalal CNP Unavailable Lyndon Dalal CNP Primary Care Provider ANKIT Dalal Primary Care Provider ANKIT Dalal Attending Provider YOSELIN LYNDON Primary Care Unavailable MARTINA RODRIGUEZ [...] Dami R Attending Unavailable Pedro Luis VELAZQUEZ, [place] Primary Care Provider [phone] AJITH, DAMI Attending Unavailable AJITH, DAMI Attending Unavailable AJITH, DAMI Attending Unavailable MELO, LELE Attending Unavailable AJITH, DAMI Attending Unavailable AJITH, DAMI Attending Unavailable MELO, LELE Attending Unavailable AJITH, DAMI Attending Unavailable AJITH, DAMI Attending Unavailable Allergies Allergy Classification Reported Allergen(s) Allergy Type Date of Onset Reaction(s) Facility Sulfonamides (antibiotic) (1 source) Sulfonamides (Antibiotic); Translations: [sulfa drugs] Drug Allergy [facility] Repository (6 sources) Sulfonamides (Antibiotic); Translations: [SULFA (SULFONAMIDE ANTIBIOTICS)] Drug allergy (disorder) 5 [facility] Repository (2 sources) Sulfonamide Drug allergy [facility] Other (20 sources) Substance with sulfonamide structure and antibacterial mechanism of action (substance) Drug allergy 5 [facility] (3 sources) Sulfonamides (Antibiotic); Translations: [sulfa drugs] Propensity to adverse reactions (disorder) [facility] Repository Medications Current Medications Medication Drug [...] a day for 5 days Aug, Active Jalqusbw-Gmd-Sf-FA ( 1 + IRON PO) (6 sources) Start: Ycxvinka-Cfu-Wi-FA ( 1 + IRON PO) 01/20/2024 Active [...] by fredi th every twenty-four hours Biotin 94195 MCG 1 tablet Orally Once a day OTC Not-Taking/PRN take 1 tablet by fredi th every twenty-four hours Biotin 23909 MCG 1 tablet Orally Once a day OTC Not-Taking take 1 tablet by mouth once maria del carmen y Biotin 22406 MCG 1 tablet Orally Once a day OTC Not-Taking BIOTIN ORAL Take by mouth q 24 HR. 0 Active take 1 tablet by mouth once [facility] [place] [facility] y Biotin 46191 MCG 1 tablet Orally Once a day [...] Comment on above: Take 1 tablet by [facility] once daily. Iodine (14 sources) Iodine [...] Probiotic OTC, daily Active lactobacillus rhamnosus gg [id number] unt oral capsule (1 source) Start: 5 End: 3 take 1 capsule by mouth once daily lactobacillus rhamnosus (CULTURELLE) 10 billion cell capsule Indications: Abdominal pain Take 1 capsule by mouth once daily. 30 capsule 2 04/30/2015 03/08/2023 Discontinued Comment on above: Take 1 capsule by mo [facility] once daily. Moringa (14 sources) Moringa [...] Comment on above: Take 1 capsule by [facility] once daily. pantoprazole 20 mg delayed [...] Qn 1.87 m[IU]/L Normal 0.34-5.60 [facility] Comment on above: Performed By: #### 2 [id number] #### [facility] [address] [place] [address] Urinalysis macro (dipstick) panel (U)on 08-14-2024 Bilirubin, UA Negative Negative - 4(70) +++ mg/dL [facility] Blood, UA Negative Negative - 50 Juanito/mcL [facility] Clarity, UA Clear [facility] Color, UA Yellow [facility] Glucose, UA Negative Negative - 1999(110) ++++ mg/dL [facility] Interpretation and review of laboratory results Abnormal [facility] Ketones, UA Negative Negative - 160(16) ++++ mg/dL [facility] Leukocytes, UA Trace Negative - 500+++ Ken/mcL [facility] Nitrite, UA Negative Negative - Positive [facility] pH, UA 6.5 5 - 9 [facility] Protein, UA Negative Negative - 1999(20) ++++ mg/dL [facility] Spec Grav, UA 1.015 1 - 1.03 [facility] Urobilinogen, UA 0.2 0.2 - 12 mg/dL [facility] Urinalysis macro (dipstick) panel (U)on 07-31-2024 Bilirubin, UA Negative Negative - 4(70) +++ mg/dL [facility] Blood, UA Negative Negative - 50 Juanito/mcL [facility] Clarity, UA Clear [facility] Color, UA Yellow [facility] Glucose, UA Negative Negative - 2000(110) ++++ mg/dL [facility] Interpretation and review of laboratory results Abnormal [facility] Ketones, UA Negative Negative - 160(16) ++++ mg/dL [facility] Leukocytes, UA Positive Negative - 500+++ Ken/mcL [facility] Comment on above: small Nitrite, UA Negative Negative - Positive [facility] pH, UA 6.5 5 - 9 [facility] Protein, UA Negative Negative - 2000(20) ++++ mg/dL [facility] Spec Grav, UA 1.010 1 - 1.03 [facility] Urobilinogen, UA 0.2 0.2 - 12 mg/dL [facility] CBC w/ Auto Diffon 4 Basophils/100 WBC (Bld) 0.4 % Normal 0.0-2.0 [facility] Comment on above: Performed By: #### 2 [id number] #### [facility] [address] [place] [address] Basophils/Leukocyt es Auto (Bld) [Pure # fraction] 0.0 E9/L Normal 0.0-0.2 [facility] Comment on above: Performed By: #### 2 453611 #### [facility] [address] [place] [address] Eosinophils (Bld) [#/Vol] 0.2 E9/L Normal 0.0-0.5 [facility] Comment on above: Performed By: #### 2 596271 #### [facility] [address] [place] [address] Eosinophils/100 WBC (Bld) 2.9 % Normal 0.0-8.0 [facility] Comment on above: Performed By: #### 2 158981 #### [facility] [address] [place] [address] Erythrocyte distribution width (RBC) [Ratio] 13.6 % Normal 10.9-14.2 [facility] Comment on above: Performed By: #### 2 382936 #### [facility] [address] [place] [address] Hematocrit (Bld) [Volume fraction] 37.3 % Normal 34.0-46.0 [facility] Comment on above: Performed By: #### 2 485704 #### [facility] [address] [place] [address] Hemoglobin (Bld) [Mass/Vol] 12.8 g/dL Normal 12.0-16.0 [facility] Comment on above: Performed By: #### 2 548898 #### [facility] [address] [place] [address] Lymphocytes (Bld) [#/Vol] 1.9 E9/L Normal 1.0-4.0 [facility] Comment on above: Performed By: #### 2 442307 #### [facility] [address] [place] [address] Lymphocytes/100 WBC (Bld) 24.0 % Normal 14.0-50.0 [facility] Comment on above: Performed By: #### 2 953313 #### [facility] [address] [place] [address] MCH (RBC) [Entitic mass] 30.5 pg Normal 27.0-34.0 [facility] Comment on above: Performed By: #### 2 310100 #### [facility] [address] [place] [address] MCHC (RBC) [Mass/Vol] 34.2 g/dL Normal 31.4-36.0 [facility] Comment on above: Performed By: #### 2 411855 #### [facility] [address] [place] [address] MCV (RBC) [Entitic vol] 89.0 fL Normal 80.0-100.0 [facility] Comment on above: Performed By: #### 2 747766 #### [facility] [address] [place] [address] Monocytes (Bld) [#/Vol] 0.4 E9/L Normal 0.2-1.0 [facility] Comment on above: Performed By: #### 2 544328 #### [facility] [address] [place] [address] Neutrophils (Bld) [#/Vol] 5.5 E9/L Normal 2.0-7.5 [facility] Comment on above: Performed By: #### 2 937735 #### [facility] [address] [place] [address] Neutrophils/100 WBC (Bld) 67.8 % Normal 36.0-75.0 [facility] Comment on above: Performed By: #### 2 621441 #### [facility] [address] [place] [address] Platelet mean volume (Bld) [Entitic vol] 8.3 fL Normal 6.4-10.8 [facility] Comment on above: Performed By: #### 2 070950 #### [facility] [address] [place] [address] Platelets (Bld) [#/Vol] 267.0 E9/L Normal 150.0-500.0 [facility] Comment on above: Performed By: #### 2 043448 #### [facility] [address] [place] [address] RBC (Bld) [#/Vol] 4.2 E12/L Low 4.3-5.9 [facility] Comment on above: Performed By: #### 2 224564 #### [facility] [address] [place] [address] WBC corrected for nucl RBC Auto (Bld) [#/Vol] 8.0 E9/L Normal 4.0-11.0 [facility] Comment on above: Performed By: #### 2 822992 #### [facility] [address] [place] [address] Free T4on 07-23-2024 Free T4 [Mass/Vol] 0.57 ng/dL Low 0.58-1.64 [facility] Comment on above: Performed By: #### 2 635089 #### [facility] [address] [place] [address] Lyteson 07-23-2024 Anion gap [Moles/Vol] 12 mmol/L Normal 6-16 [facility] Comment on above: Performed By: #### 2 164911 #### [facility] [address] [place] [address] Chloride [Moles/Vol] 105 mmol/L Normal 101-111 [facility] Comment on above: Performed By: #### 2 869301 #### [facility] [address] [place] [address] CO2 [Moles/Vol] 24 mmol/L Normal 21-31 [facility] Comment on above: Performed By: #### 2 857308 #### [facility] [address] [place] [address] Potassium [Moles/Vol] 3.5 mmol/L Normal 3.5-5.3 [facility] Comment on above: Performed By: #### 2 723815 #### [facility] [address] [place] [address] Sodium [Moles/Vol] 137 mmol/L Normal 135-145 [facility] Comment on above: Performed By: #### 2 095464 #### [facility] [address] [place] [address] TSHon 07-23-2024 TSH Qn 2.26 m[IU]/L Normal 0.34-5.60 [facility] Comment on above: Performed By: #### 2 982842 #### [facility] [address] [place] [address] CMPon 06-25-2024 Albumin [Mass/Vol] 3.6 g/dL Normal 3.3-5.0 [facility] Comment on above: Performed By: #### 2 890969 #### [facility] [address] [place] [address] Albumin/Globulin (S) [Mass conc ratio] 1.3 Normal 1.1-2.2 [facility] Comment on above: Performed By: #### 2 579988 #### [facility] [address] [place] [address] ALP [Catalytic activity/Vol] 63 Int._Unit/L Normal 21-98 [facility] Comment on above: Performed By: #### 2 291887 #### [facility] [address] [place] [address] ALT No additional P-5'-P [Catalytic activity/Vol] 13 Int._Unit/L Normal 6-46 [facility] Comment on above: Performed By: #### 2 358820 #### [facility] [address] [place] [address] Anion gap [Moles/Vol] 10 mmol/L Normal 6-16 [facility] Comment on above: Performed By: #### 2 766693 #### [facility] [address] [place] [address] AST [Catalytic activity/Vol] 12 Int._Unit/L Normal 5-43 [facility] Comment on above: Performed By: #### 2 955078 #### [facility] [address] [place] [address] Bilirubin [Mass/Vol] 0.7 mg/dL Normal 0.0-1.1 [facility] Comment on above: Performed By: #### 2 583416 #### [facility] [address] [place] [address] Calcium [Mass/Vol] 8.6 mg/dL Low 8.9-11.1 [facility] Comment on above: Performed By: #### 2 204959 #### [facility] [address] [place] [address] Chloride [Moles/Vol] 104 mmol/L Normal 101-111 [facility] Comment on above: Performed By: #### 2 884673 #### [facility] [address] [place] [address] CO2 [Moles/Vol] 25 mmol/L Normal 21-31 [facility] Comment on above: Performed By: #### 2 904970 #### [facility] [address] [place] [address] Creatinine [Mass/Vol] 0.4 mg/dL Low 0.5-1.3 [facility] Comment on above: Performed By: #### 2 074475 #### [facility] [address] [place] [address] Globulin (S) [Mass/Vol] 2.8 g/dL Normal 1.4-4.0 [facility] Comment on above: Performed By: #### 2 387885 #### [facility] [address] [place] [address] Glucose [Mass/Vol] 97 mg/dL Normal 55-199 [facility] Comment on above: Performed By: #### 2 425350 #### [facility] [address] [place] [address] Potassium [Moles/Vol] 3.4 mmol/L Low 3.5-5.3 [facility] Comment on above: Performed By: #### 2 440360 #### [facility] [address] [place] [address] Protein [Mass/Vol] 6.4 g/dL Normal 6.0-7.8 [facility] Comment on above: Performed By: #### 2 612823 #### [facility] [address] [place] [address] Sodium [Moles/Vol] 136 mmol/L Normal 135-145 [facility] Comment on above: Performed By: #### 2 520361 #### [facility] [address] [place] [address] Urea nitrogen [Mass/Vol] 8 mg/dL Normal 5-21 [facility] Comment on above: Performed By: #### 2 156973 #### [facility] [address] [place] [address] Urea nitrogen/Creatinin e [Mass ratio] 20 No Units Normal 10-20 [facility] Comment on above: Performed By: #### 2 026435 #### [facility] [address] [place] [address] TSHon 06-25-2024 TSH Qn 3.63 m[IU]/L Normal 0.34-5.60 [facility] Comment on above: Performed By: #### 2 265809 #### [facility] [address] [place] [address] eGFRon 06-25-2024 eGFR 142 mL/min/1.73 m2 Normal >=59 [facility] Comment on above: Order Comment: Order added by Discern Expert. Performed By: #### 1 [id number] #### [facility] [address] [place] [address] TSHon 05-31-2024 TSH Qn 1.99 m[IU]/L Normal 0.34-5.60 [facility] Comment on above: Performed By: #### 2 333943 #### [facility] [address] [place] [address] TSHon 05-01-2024 TSH Qn 1.54 m[IU]/L Normal 0.34-5.60 [facility] Comment on above: Performed By: #### 2 994985 #### [facility] [address] [place] [address] Consent for Treatmenton Consent for Treatment [id number] F Normal [facility] Physician Orderon 04-04-2024 Physician Order [id number]#[id number] FF Normal [facility] TSHon 04-04-2024 TSH Qn 2.73 m[IU]/L Normal 0.34-5.60 [facility] Comment on above: Performed By: #### 2 688974 #### [facility] [address] [place] [address] XR Spine Cervical 4 or 5 Vie [...] . DAP = . Normal [facility] XR Spine Thoracic 3 Viewson 09-16-2023 [...] Signed by: Maximo Kurtz M.D. Transcribed by: MORNEO Technologist: JOANNE Technical Comments Radiation Dose: Ka,r in mGy = . DAP = . Normal [facility] Physician Orderon 09-15-2023 Physician Order [id number]#[id number] IFF Normal [facility] T4 Free SerPl-mCncon 023 Free T4 [Mass/Vol] 1.2 ng/dL Normal 0.9-1.7 [facility] Comment on above: Order Comment: Speci men Type: BLOOD SPECIMEN Ordering Facility: [facility] Address: [address] [place] [address] Performed By: #### 3 024-7, 3016-3 #### [facility] CLIA [id number] [address] [place] [address] [place] TSH SerPl-aCncon 08-18-2023 TSH Qn 2.280 m[IU]/L Normal 0.270-4.200 [facility] Comment on above: Order Comment: Speci men Type: BLOOD SPECIMEN Ordering Facility: [facility] Address: [address] [place] [address] Result Comment: If t he patient is , TSH reference range varies by gestational period: First Trimester (weeks 9-12): 0.180-2.990 mIU/L Second Trimester: 0.110-3.980 mIU/L Third Trimester: 0.480-4.710 mIU/L Noe Ramon et al. A Practical Approach for the Verifications and Determination of Site- and Trimester-Specific Reference Intervals for Thyroid Function tests in . Thyroid, 2019:29:3:412-420. Gregor E, et al. 2017 Guidelines of the [place] Thy[employer] for the Diagnosis and Management of Thyroid Disease during and the . Thyroid, 2017:27:3:315-389. Performed By: #### 3 024-7, 3016-3 #### [facility] CLIA [id number] [address] [place] [address] [place] Consent for Treatmenton Consent for Treatment [id number]: 127 Normal [facility] US Renalon 07-08-2023 US Renal Exam [...] by: MORENO Technologist: EMILY Chung [facility] XR Abdomen 1 Viewon 07-08-20 XR [...] . DAP = . Normal [facility] Ambulatory Visit Summaryon 0 06-21-2023 Ambulatory Visit Summary EMMY DALE Tristen :2000 Visit Date:06/21/2023 Ambulatory Visit Instructions Your Diagnosis Urinary crystals Recurrent UTI Urethral stricture Gross hematuria Tests Performed Urnls Dip Stick Auto w/o Microscopy POC 82822 Your Care Team Attending Physician - SOBEIDA [...] pt. Where: [address] [place] [address] You Need to Complete the Following US Renal, *Est. 06/21/23 due within 1 months, Routine, Order for future visit, Transport Mode: Ambulatory, Reason: Other (please specify), Reason: Kidney Stones, No, Kidney stones, pp_set_radiology_subspec ialty, Millan - Yell XR Abdomen 1 View, *Est. 06/21/23 due [...] Urnls Dip Stick Auto w/o Microscopy POC 88740 (06/21/2023) Bilirubin Urine Dipstick - Negative Blood Urine Dipstick - Negative Glucose Urine Dipstick - Negative Ketones Urine Dipstick - Negative Leukocytes Urine Dipstick - Negative Nitrite Urine Dipstick - Negative Protein Urine Dipstick - Negative Specific [place] Urine Dipstick - 1.010 Urine Appearance Urine [...] ? 8 oz (237 mL) of milk, prswtod-qezkfrniyeal-ufy ry milk, and calcium-fortifiedfruit juice. Calcium-fortified means [...] (more content not included)... Normal [facility] Patient Educationon 06-21-20 Patient Education Nephrology [...] ? 8 oz (237 mL) of milk, mhpuxis-dufadunedyax-emy ry milk, and calcium-fortifiedfruit juice. Calcium-fortified means [...] Spinach (cooked), rhubarb, beets, sweet potatoes, and Belgian chard. ? Peanuts. ? Potato chips, austrian fries, and baked potatoes with skin on. ? Nuts and nut products. ? Chocolate. ? If you regularly take a diuretic medicine, make sure to eat at least 1 or 2 servings of fruits or vegetables that are high in potassium each day. These include: ? Avocado. ? Banana. ? Greenup, prune, carrot, or tomato juice. ? Baked [...] fish oil, or vitamin B6. ? Take xfjx-arn-irlvjcg and prescription medicines only as told by your health care provider. These include supplements. What foods should I limit? Limit your in (more content not included)... Normal [facility] Urology Office/Clinic Noteon 06-21-2023 Urology Office/Clinic [...] pass. Will send CORDELIA and KUB to [facility] to see if any persistent hydro/any remaining [...] Urnls Dip Stick Auto w/o Microscopy POC 40967 4. Gross hematuria (R31.0: Gross hematuria) CORDELIA [...] When Contact Information SOBEIDA THOMPSON PA-C, URL [address] [place] [place] [address] Additional Instructions: will call pt. Patient Education [...] (more content not included)... Normal [facility] Comment on above: Result Comment: Elec tronically Signed By: SOBEIDA THOMPSON PA-Cbr\Date and Time Signed: 06/21/23 12:44 EDT\.br\Electronically Co-Signed By: Laura Loubr\Date and Time Co-Signed: 08/22/23 12:25 EDT PAP [id number] 06-07-2023 Cytology report Cyto stain Doc (Cvx/Vag) Note Invalid Interpretation Code Monty [facility] Comment on above: Result Comment: TEST S RESULT FLAG UNITS REF RANGE LAB Clinician Provided Cytology Information Source.............Endocervix No. of containers..01 ThinPrep Vial DIAGNOSIS: 01 NEGATIVE FOR INTRAEPITHELIAL LESION OR MALIGNANCY. Specimen adequacy: 01 Satisfactory for evaluation. Endocervical and/or squamous metaplastic cells (endocervical component) are present. Performed by: Clif Bolaños, Assistant Professor Of Art ([facility]) . 01 Note: Note 01 The Pap [...] High <-Panic Low,>-Panic High,A-Abnormal,AA-Critical Abnormal Performed at: [facility] [place] [address] Lisa Ellington MD, Performed at: [facility] [address] KELSEA Walsh [id number] MD Chandana Gonzalez Performed By: #### 3 [id number] ####[facility] [address] [place] [address] Consent for Treatmenton Consent for Treatment [id number]: 127 Normal [facility] Heart and Vascular Office/Cl inic Noteon [...] but unfortunately she was called by the logistics analytics manager and told that it was not [...] (more content not included)... Normal [facility] Comment on above: Result Comment: Elec tronically Signed By: SAMUEL VELAZQUEZ, Benjamin Le.br\Date and Time Signed: 06/01/23 14:25 EDT PAP [id number] 06-01-2023 Collection Technique BRUSH-SPATULA Normal [facility] Comment on above: Performed By: #### 3 [id number] ####[facility] [address] [place] [address] Gynecological Body Site ENDOCERVIX Normal [facility] Comment on above: Performed By: #### 3 [id number] ####[facility] [address] [place] [address] Physician Orderon 06-01-2023 Physician Order [id number]#1.00CD :127 [facility] Physician Order [id number]#1.00CD: 127 [facility] C Urineon 05-27-2023 Bacteria identified [...] Locations R1: This test was performed at: [facility], [address] [place] [address], [address] , [place], Normal [facility] Comment on above: Performed By: #### 2 855461 ####[facility] [address] [place] [address] T4 Free SerPl-mCncon 023 Free T4 [Mass/Vol] 1.2 ng/dL Normal 0.9-1.7 [facility] Comment on above: Order Comment: Rozina florez Type: BLOOD SPECIMEN Ordering Facility: [facility] Address: [address] [place] [place] [address] Performed By: #### 3 024-7, 6-3 #### [facility] CLIA [id number] [address] [place] TSH SerPl-aCncon 05-26-2023 TSH Qn 2.260 m[IU]/L Normal 0.270-4.200 [facility] Comment on above: Order Comment: Rozina florez Type: BLOOD SPECIMEN Ordering Facility: [facility] Address: [address] [place] [address] Result Comment: If t he patient is , TSH reference range varies by gestational period: First Trimester (weeks 9-12): 0.180-2.990 mIU/L Second Trimester: 0.110-3.980 mIU/L Third Trimester: 0.480-4.710 mIU/L Noe Ramon et al. A Practical Approach for the Verifications and Determination of Site- and Trimester-Specific Reference Intervals for Thyroid Function tests in . Thyroid, 2019:29:3:412-420. Gregor E, et al. 2017 Guidelines of the [place] Thyroid Association for the Diagnosis and Management of Thyroid Disease during and the . Thyroid, 2017:27:3:315-389. Performed By: #### 3 024-7, 3016-3 #### [facility] CLIA [id number] [address] [place] [address] [place] Consent for Treatmenton 05-01 Consent for Treatment [id number]: 127 Normal [facility] Physician Orderon 05-25-2023 Physician Order [id number]:12 7 Normal [facility] Urinalysison 05-25-2023 Bacteria LM Ql (Urine sed) 2+ /HPF Abnormal Trace [facility] Comment on above: Performed By: #### 1 [id number] ####[facility] [address] [place] [address] Bilirubin Ql (U) Negative Normal Negative [facility] Comment on above: Performed By: #### 1 [id number] ####[facility] [address] [place] [address] Clarity (U) SL CLOUDY Abnormal Clear [facility] Comment on above: Performed By: #### 1 [id number] ####[facility] [address] [place] [address] Color (U) YELLOW Normal Yellow [facility] Comment on above: Performed By: #### 1 [id number] ####[facility] [address] [place] [address] Crystals LM Ql (Urine sed) Present Normal [facility] Comment on above: Performed By: #### 1 [id number] ####[facility] [address] [place] [address] Epithelial cells.squamous LM.HPF (Urine sed) [#/Area] 0-2 Normal 0-2 [facility] Comment on above: Performed By: #### 1 [id number] ####[facility] [address] [place] [address] Glucose Test strip (U) [Mass/Vol] Negative Normal Negative [facility] Comment on above: Performed By: #### 1 [id number] ####[facility] [address] [place] [address] Hemoglobin Ql (U) 2+ Abnormal Negative [facility] Comment on above: Performed By: #### 1 [id number] ####[address] [address] Ketones (U) [Mass/Vol] Negative Normal Negative [facility] Comment on above: Performed By: #### 1 [id number] ####[address] [address] [place].plasma/Lit hium.RBC (Bld) [Mass ratio] 0-3 Normal 0-3 [facility] Comment on above: Performed By: #### 1 [id number] ####[address] [address] Mucus Ql (Urine sed) TRACE Normal [facility] Comment on above: Performed By: #### 1 [id number] ####[address] [address] Nitrite Ql (U) Positive Abnormal Negative [facility] Comment on above: Performed By: #### 1 [id number] ####[address] [address] pH (U) 6.0 [pH] Invalid Interpretation Code 5.0-9.0 [facility] Comment on above: Performed By: #### 1 [id number] ####[address] [address] Protein (U) [Mass/Vol] Negative Normal Negative [facility] Comment on above: Performed By: #### 1 [id number] ####[address] [address] Specific gravity (U) [Rel density] 1.010 Invalid Interpretation Code 1.005-1.030 [facility] Comment on above: Performed By: #### 1 [id number] ####[address] [address] Type of Urine collection method Clean Catch Normal [facility] Comment on above: Performed By: #### 1 [id number] ####[address] [address] Urobilinogen Qn (U) 0.2 {Catarino'U}/dL Normal 0.0-1.0 [facility] Comment on above: Performed By: #### 1 [id number] ####[facility] [address] [place] [address] WBC Auto Ql (U) 1+ Abnormal Negative [facility] Comment on above: Performed By: #### 1 [id number] ####[facility] [address] [place] [address] WBC LM.HPF (Urine sed) [#/Area] 26-30 Abnormal 0-5 [facility] Comment on above: Performed By: #### 1 [id number] ####[facility] [address] [place] [address] Consent for Treatmenton 04-30 Consent for Treatment [id number]: 127 Normal [facility] Consent for Treatmenton Consent for Treatment [id number]: 127 Normal [facility] Heart and Vascular Office/Cl inic Noteon [...] (more content not included)... Normal [facility] Comment on above: Result Comment: Elec tronically Signed By: Samuel VELAZQUEZ, Benjamin Lopez\.cee\Date and Time Signed: 05/05/23 16:11 EDT Physician Orderon 05-05-2023 Physician Order [id number] :127 Normal [facility] Stress EKG Tracingson 2022 Stress EKG Tracings [id number]#[id number]: 127 Normal [facility] Consent for Treatmenton 03-31 Consent for Treatment [id number]: 127 Normal [facility] T3Free SerPl-mCncon 04-06-20 23 Free T3 [Mass/Vol] 3.3 pg/mL Normal 2.3-4.1 [facility] Comment on above: Order Comment: Speci men Type: BLOOD SPECIMEN Ordering Facility: [facility] Address: [address] [place] [address] Performed By: #### 3 051-0, 3024-7, 3016-3 #### [facility] CLIA [id number] [address] [place] [address] [place] T4 Free SerPl-mCncon 023 Free T4 [Mass/Vol] 1.4 ng/dL Normal 0.9-1.7 [facility] Comment on above: Order Comment: Speci men Type: BLOOD SPECIMEN Ordering Facility: [facility] Address: [address] [place] [address] Performed By: #### 3 051-0, 3024-7, 3016-3 #### [facility] CLIA [id number] [address] [place] [address] OF SID THYROGLOBULIN ABon Thyroglobulin Ab Qn 1.8 [IU]/mL Normal <4.0 [facility] Comment on above: Order Comment: Speci men Type: BLOOD SPECIMEN Ordering Facility: [facility] Address: [address] [place] [address] Result Comment: The Thyroglobulin Antibody test was performed using the [employer] DXI paramagnetic particle chemiluminescent immunoassay method. Results obtained with different assay methods or kits cannot be used interchangeably. Performed By: #### T JASON #### [facility] CLIA [id number] [address] [place] [address] STATES [place] S[place] THYROID PEROXIDASE ANTIBODY BLOODon 04-06-2023 [place]n 4572.0 [IU]/mL High <5.6 [facility] Comment on above: Order Comment: Speci men Type: BLOOD SPECIMEN Ordering Facility: [facility] Address: [address] [address] Result Comment: Thyr oid Peroxidase Antibody test is used as an aid in diagnosis of autoimmune thyroid disease. Clinical correlation is required. Performed By: #### M ICRO #### [facility] CLIA [id number] [address] STATES [address] [facility] TSH SerPl-aCncon 04-06-2023 TSH Qn 6.050 m[IU]/L High 0.270-4.200 [facility] Comment on above: Order Comment: Rozina florez Type: BLOOD SPECIMENOrdering Facility: [facility] Address: [address] [address] Result Comment: If t he patient is , TSH reference range varies by gestational period: First Trimester (weeks 9-12): 0.180-2.990 mIU/L Second Trimester: 0.110-3.980 mIU/L Third Trimester: 0.480-4.710 mIU/L Noe Ramon et al. A Practical Approach for the Verifications and Determination of Site- and Trimester-Specific Reference Intervals for Thyroid Function tests in . Thyroid, 2019:29:3:412-420. Gregor Banegas, et al. 2017 Guidelines of the [place] Thyroid Association for the Diagnosis and Management of Thyroid Disease during and the . Thyroid, 2017:27:3:315-389. Performed By: #### 3 051-0, 3024-7, 3016-3 ####[facility] [id number] [address] [facility] CNOVon 03-08-2023 CNOV Office Visit (ENDOLN ) -------- EMMY DALE ([id number]) 1 F Date Time Provider Department 03/08/23 [...] Arthritis Father in blood . was at [facility] when baby thought to be [...] involuntary motions. (more content not included)... Normal [facility] Vital Signs Date Time Vital Sign Value Performing Clinician Facility 08-14-2024 09:36-0400 Body weight 101.61 kg Dami Ajith DO Work Phone: [facility] 08-14-2024 09:36-0400 Diastolic blood pressure 70 mm[Hg] Dami Ajith DO Work Phone: [facility] 08-14-2024 09:36-0400 Systolic blood pressure 120 mm[Hg] Dami Ajith DO Work Phone: [facility] 07-31-2024 08:55-0400 Body weight 99.34 kg Dami Ajith DO Work Phone: [facility] 07-31-2024 08:55-0400 Diastolic blood pressure 68 mm[Hg] Dami Ajith DO Work Phone: [facility] 07-31-2024 08:55-0400 Systolic blood pressure 112 mm[Hg] Dami Ajith DO Work Phone: [facility] 09-15-2023 13:30-0500 Body height 162.56 cm [employer] Other [employer] Other 09-15-2023 13:30-0500 Body mass index (BMI) [Ratio] 30.21 kg/m2 [facility] Other [employer] Other 09-15-2023 13:30-0500 Body weight 79.83 kg [facility] Other [employer] Other 09-15-2023 13:30-0500 Diastolic blood pressure 68 mm[Hg] [facility] Other [employer] Other 09-15-2023 13:30-0500 Respiratory rate 18 /min Lyndon Easterwood Other [employer] Other 09-15-2023 13:30-0500 SaO2% (BldA) [Mass fraction] 99 % Lyndon Easterwood Other [employer] Other 09-15-2023 13:30-0500 Systolic blood pressure 118 mm[Hg] Lyndon Easterwood Other [employer] Other 07-12-2023 09:15-0400 Body height 162.56 cm Lyndon Easterwood Other [employer] Other 07-12-2023 09:15-0400 Body mass index (BMI) [Ratio] 29.86 kg/m2 Lyndon Easterwood Other [employer] Other 07-12-2023 09:15-0400 Body temperature 98.6 [degF] Lyndon Easterwood Other [employer] Other 07-12-2023 09:15-0400 Body weight 78.93 kg Lyndon Easterwood Other [employer] Other 07-12-2023 09:15-0400 Diastolic blood pressure 70 mm[Hg] Lyndon Easterwood Other [employer] Other 07-12-2023 09:15-0400 Respiratory rate 20 /min Lyndon Easterwood Other [employer] Other 07-12-2023 09:15-0400 SaO2% (BldA) [Mass fraction] 98 % Lyndon Easterwood Other [employer] Other 07-12-2023 09:15-0400 Systolic blood pressure 112 mm[Hg] Lyndon Easterwood Other [employer] Other 05-25-2023 17:30-0400 Body height 162.56 cm Lyndon Easterwood Other [employer] Other 05-25-2023 17:30-0400 Body mass index (BMI) [Ratio] 30.04 kg/m2 Lyndon Easterwood Other [employer] Other 05-25-2023 17:30-0400 Body temperature 98.2 [degF] Lyndon Easterwood Other [employer] Other 05-25-2023 17:30-0400 Body weight 79.38 kg Lyndon Easterwood Other [employer] Other 05-25-2023 17:30-0400 Diastolic blood pressure 72 mm[Hg] Lyndon Easterwood Other [employer] Other 05-25-2023 17:30-0400 Respiratory rate 20 /min Lyndon Easterwood Other [employer] Other 05-25-2023 17:30-0400 SaO2% (BldA) [Mass fraction] 99 % Lyndon Easterwood Other [employer] Other 05-25-2023 17:30-0400 Systolic blood pressure 110 mm[Hg] Lyndon Easterwood Other [employer] Other 03-08-2023 16:13-0400 Body weight 83.92 kg Martina Rodriguez MD, PhD Work Phone: [facility] 03-08-2023 16:13-0400 Diastolic blood pressure 76 mm[Hg] Martina Rodriguez MD, PhD Work Phone: [facility] 03-08-2023 16:13-0400 Systolic blood pressure 116 mm[Hg] Martina Rodriguez MD, PhD Work Phone: [facility] 08-05-2022 16:00-0400 Body height 162.56 cm Lyndon Joseerwood Other [employer] Other 08-05-2022 16:00-0400 Body mass index (BMI) [Ratio] 32.78 kg/m2 Lyndon Easterwood Other [employer] Other 08-05-2022 16:00-0400 Body temperature 98 [degF] Lyndon Easterwood Other [employer] Other 08-05-2022 16:00-0400 Body weight 86.64 kg Lyndon Joseerwood Other [employer] Other 08-05-2022 16:00-0400 Diastolic blood pressure 76 mm[Hg] Lyndon Easterwood Other [employer] Other 08-05-2022 16:00-0400 Respiratory rate 20 /min Lyndon [employer] Other [employer] Other 08-05-2022 16:00-0400 SaO2% (BldA) [Mass fraction] 99 % Lyndon Easterwood Other [employer] Other 08-05-2022 16:00-0400 Systolic blood pressure 122 mm[Hg] Lyndon Easterwood Other [employer] Other Encounters Encounter Date Encounter Type Care [...] 07-23-2024 End: 07-23-2024 ambulatory Dami R AJITH Facility:[facility] Start: 07-19-2024 End: 07-19-2024 ambulatory LELE ALEJO Not Available Start: 07-05-2024 End: 07-05-2024 ambulatory DAMI AJITH Not Available Start: 06-25-2024 End: 06-25-2024 ambulatory DAMI AJITH Not Available Start: 06-25-2024 End: 06-25-2024 ambulatory LELE ALEJO Facility:[facility] Start: 06-12-2024 End: 06-12-2024 ambulatory DAMI R AJITH [facility] Start: 06-04-2024 End: 06-04-2024 ambulatory LELE ALEJO Not Available Start: 05-14-2024 End: 05-14-2024 ambulatory DAMI R AJITH [facility] Start: 05-08-2024 End: 05-08-2024 ambulatory DAMI AJITH Not Available Start: 04-09-2024 End: 04-09-2024 ambulatory DAMI AJITH Not Available Start: 04-04-2024 ambulatory Dami R AJITH Facility: [facility] Start: 03-12-2024 End: 03-12-2024 ambulatory DAMI AJITH Not Available Start: 02-24-2024 End: 02-24-2024 ambulatory DAMI AJITH Not Available Start: 12-04-2023 End: 12-04-2023 ambulatory Lyndon Joseerwood Other [employer] Other Start: 12-04-2023 Encounter by [employer] Lyndonjessica Garciaerwood [facility] Start: 11-05-2023 End: 11-05-2023 ambulatory Lyndon Easterwood Other [employer] Other Start: 11-05-2023 Encounter by [employer] Lyndon Garciaerwood [facility] Start: 10-25-2023 End: 10-25-2023 ambulatory Lyndon J Easterwood Facility:[facility] Start: 10-10-2023 End: 10-10-2023 ambulatory Lyndon Easterwood Other [employer] Other Start: 10-10-2023 Telephone encounter Lyndon Joseerwood [facility] Start: 09-26-2023 End: 09-26-2023 ambulatory Lyndon Easterwood Other [employer] Other Start: 09-26-2023 Telephone encounter Lyndon Joseerwood [facility] Start: 09-18-2023 End: 09-18-2023 ambulatory Lyndon Easterwood Other [employer] Other Start: 09-18-2023 Telephone encounter Lyndon [place] [facility] Start: 09-15-2023 End: 09-15-2023 ambulatory LYNDON [facility] [employer] Other Start: 09-15-2023 Office outpatient visit 25 minutes Lyndon [place] [facility] Start: 08-18-2023 End: 08-18-2023 ambulatory LYNDON [facility] Facility:[facility] Start: 08-05-2023 Get Medical Advice Martina Rodriguez MD, PhD Work Phone: Endocrinology Comment on above: lab orders Start: 07-22-2023 End: 07-22-2023 ambulatory Lyndon [facility] Other [employer] Other Start: 07-22-2023 Telephone encounter Lyndon [place] [facility] [employer] Start: 07-12-2023 End: 07-12-2023 [facility] [employer] Other Start: 07-12-2023 Office outpatient visit 25 minutes Lyndon [place] [facility] Start: 07-12-2023 Telephone encounter Lyndon Dalal [facility] Start: 07-08-2023 End: 07-08-2023 ambulatory SOBEIDA THOMPSON Facility:[facility] Start: 06-27-2023 End: 06-27-2023 ambulatory Lyndon [place] Other [employer] Other Start: 06-27-2023 Telephone encounter Lyndon [place] [facility] Start: 06-21-2023 End: 06-21-2023 ambulatory SOBEIDA THOMPSON Facility:[facility] Start: 06-01-2023 End: 06-01-2023 ambulatory Benjamin BAKER Facility:[facility] Start: 06-01-2023 End: 06-01-2023 ambulatory Bill Kat Facility:[facility] Start: 05-26-2023 End: 05-26-2023 ambulatory LYNDON JOSENEDA Facility:[facility] Start: 05-25-2023 End: 05-25-2023 ambulatory LYNDON [facility] [employer] Other Start: 05-25-2023 Office outpatient visit 15 minutes Lyndon Dalal [facility] Start: 05-17-2023 End: 05-17-2023 ambulatory Benjamin BAKER Facility:[facility] Start: 05-05-2023 End: 05-05-2023 ambulatory Benjamin BAKER Facility:[facility] Start: 04-15-2023 End: 04-15-2023 ambulatory Benjamin BAKER Facility:[facility] Start: 04-06-2023 End: 04-06-2023 ambulatory MARTINA RODRIGUEZ Facility:[facility] Start: 03-08-2023 End: 03-08-2023 ambulatory MARTINA RODRIGUEZ Facility:[facility] Start: 03-08-2023 End: 03-08-2023 Patient encounter procedure Martina Rodriguez MD, PhD Work Phone: Endocrinology Comment on above: Vikki's thyroidi tis (Primary Dx) Start: 02-28-2023 End: 02-28-2023 ambulatory Lyndon Dalal Other [employer] Other Start: 02-28-2023 Telephone encounter Lyndon Dalal [facility] Start: 02-21-2023 End: 02-21-2023 ambulatory LINOLEUM LAYER APPRENTICE Lyndon Dalal Work Phone: [facility] Work Phone: Start: 02-21-2023 End: 02-21-2023 Discharged Recurring LINOLEUM LAYER APPRENTICE Lyndon Dalal Work Phone: [facility] [place] Work Phone: Start: 08-09-2022 End: 08-09-2022 ambulatory Lyndon Dalal Other [employer] Other Start: 08-09-2022 Telephone encounter Lyndon Dalal [facility] Start: 08-05-2022 End: 08-06-2022 Emergency department patient visit Lyndon Dalal Facility:[facility] Start: 08-05-2022 End: 08-05-2022 ambulatory Lyndon Dalal Other [employer] Other Start: 08-05-2022 Office outpatient visit 40 minutes Lyndon Dalal [facility] Procedures Date Procedure Procedure Detail [...] Routine [facility] [address] [place] [id number] Dami Canseco, DO [address] [place] [address] [facility] Start: 09-10-2024 End: 09-10-2024 Patient encounter procedure 09/10/2024 8:40 AM EST Routine [facility] [address] [place] [address] Dami Canseco, DO [address] [place] [address] [facility] Start: 09-03-2024 End: 09-03-2024 Patient encounter procedure 09/03/2024 8:40 AM EST Routine [facility] [address] [place] [address] Dami Canseco, DO [address] [place] [address] [facility] Start: 08-27-2024 End: 08-27-2024 Patient encounter procedure 08/27/2024 8:40 AM EDT Routine [facility] [address] [facility] [address] [facility] [place] [address] Dami Canseco, DO [address] [place] [address] [facility] Start: 08-14-2024 End: 08-14-2024 Patient encounter procedure [facility] Comment on above: Arrived Start: 08-06-2024 End: 08-06-2024 Professional / ancillary services management 08/06/2024 8:00 AM EDT Ancillary Procedure [facility] [address] [place] [address] [facility] Start: 07-31-2024 End: 07-31-2024 Patient encounter procedure 07/31/2024 8:50 AM EDT Routine [facility] [address] [place] [address] Dami Canseco, DO [address] [place] [address] Arrived [facility] Comment on above: Arrived Start: 07-01-2024 Influenza vaccination Influenza Vacc ine (#1) [facility] Start: 08-08-2023 End: 10-08-2023 Thyrotropin [Units/volume] in Serum or Plasma TSH BLD Lab Routine Vikki's thyroiditis Expected: 08/08/2023, Expires: 10/08/2023 [facility] Work Phone: Comment on above: Expected: 08/08/2023 , Expires: 10/08/2023 Start: 08-08-2023 End: 10-08-2023 Thyroxine (T4) free [Mass/volume] in Serum or Plasma T4 FREE/FREE THYROX Lab Routine Vikki's thyroiditis Expected: 08/08/2023, Expires: 10/08/2023 [facility] Work Phone: Comment on above: Expected: 08/08/2023 , Expires: 10/08/2023 Start: 07-07-2023 Urine microalbumin profile [facility] Start: 07-01-2023 Covid-19 Vaccine () Covid-19 Vaccine () [facility] Start: 07-01-2023 Influenza vaccination Influenza Vacc ine (#1) [facility] Start: 03-31-2023 End: 05-31-2023 Thyroglobulin Ab [Units/volume] in Serum or Plasma THYROGLOBULIN AB Lab Routine Vikki's thyroiditis Expected: 03/31/2023, Expires: 05/31/2023 [facility] Work Phone: Comment on above: Expected: 03/31/2023 , Expires: 05/31/2023 Start: 03-31-2023 End: 05-31-2023 THYROID PEROXIDASE ANTIBODY BLOOD THYROID PEROXIDASE ANTIBODY BLOOD Lab Routine Vikki's thyroiditis Expected: 03/31/2023, Expires: 05/31/2023 [facility] Work Phone: Comment on above: Expected: 03/31/2023 , Expires: 05/31/2023 Start: 03-31-2023 End: 05-31-2023 Thyrotropin [Units/volume] in Serum or Plasma TSH BLD Lab Routine Vikki's thyroiditis Expected: 03/31/2023, Expires: 05/31/2023 [facility] Work Phone: Comment on above: Expected: 03/31/2023 , Expires: 05/31/2023 Start: 03-31-2023 End: 05-31-2023 Thyroxine (T4) free [Mass/volume] in Serum or Plasma T4 FREE/FREE THYROX Lab Routine Vikki's thyroiditis Expected: 03/31/2023, Expires: 05/31/2023 [facility] Work Phone: Comment on above: Expected: 03/31/2023 , Expires: 05/31/2023 Start: 03-31-2023 End: 05-31-2023 Triiodothyronine (T3) Free [Mass/volume] in Serum or Plasma T3 FREE BLD Lab Routine Vikki's thyroiditis Expected: 03/31/2023, Expires: 05/31/2023 [facility] Work Phone: Comment on above: Expected: 03/31/2023 , Expires: 05/31/2023 Start: 10-31-2022 DEPRESSION ASSESSMENT DEPRESSION ASS ESSMENT [facility] Start: 2021 PAP TESTING PAP TESTING [facility] Start: 02-02-2021 COVID-19 VACCINE (3 - Booster for Pfizer series) COVID-19 VACCINE (3 - Booster for Pfizer series) [facility] Start: 2018 CHLAMYDIA SCREENING (18-24) CHLAMYDIA SCREENING (18-24) [facility] Start: 2018 GC (GONORRHEA) SCREE MICHELLE (18-24) GC (GONORRHEA) SCREENING (18-24) [facility] Start: 2018 HEPATITIS C SCREENING HEPATITIS C SC REENING [facility] Start: 2018 HIV SCREENING HIV SCREENING [facility] Start: 2016 Meningococcal B Vacc ine: Consider Based On Risk (2 of 2 - Risk Bexsero 2-dose series) Meningococcal B Vaccine: Consider Based On Risk (2 of 2 - Risk Bexsero 2-dose series) [facility] Start: 2016 MENINGOCOCCAL B: Con rn perioperative based on risk (2 of 2 - Risk Bexsero 2-dose series) MENINGOCOCCAL B: Consider based on risk (2 of 2 - Risk Bexsero 2-dose series) [facility] Start: 2014 PEDS TO ADULT TRANSI TION ANNUAL ASSESSMENT PEDS TO ADULT TRANSITION ANNUAL ASSESSMENT [facility] Start: 2012 PEDS TO ADULT TRANSI TION INITIAL DISCUSSION PEDS TO ADULT TRANSITION INITIAL DISCUSSION [facility] Immunizations Immunization Date Immunization Notes Care Provider Fa ortegaty 09-19-2022 influenza, injectabl e, quadrivalent, contains preservative Lyndon Easterwood Other [employer] Other 07-19-2022 influenza virus vaccine, unspecified formulation Martina Rodriguez MD, PhD Work Phone: [facility] 12-08-2020 Do not use COVID-19 Pfizer 2 dose Lyndon Easterwood Other [employer] Other 11-17-2020 Do not use COVID-19 Pfizer 2 dose Lyndon Easterwood Other [employer] Other 07-31-2020 influenza, injectabl e, quadrivalent, contains preservative Lyndon Easterwood Other [employer] Other 10-18-2016 influenza, injectabl e, quadrivalent, contains preservative Martina Rodriguez MD, PhD Work Phone: [facility] 08-04-2015 influenza, injectabl e, quadrivalent, contains preservative Martina Rodriguez MD, PhD Work Phone: [facility] 04-23-2014 human papilloma viru s vaccine, quadrivalent Martina Rodriguez MD, PhD Work Phone: [facility] 09-29-2013 human papilloma viru s vaccine, quadrivalent Martina Rodriguez MD, PhD Work Phone: [facility] 07-07-2013 human papilloma viru s vaccine, quadrivalent Martina Rodriguez MD, PhD Work Phone: [facility] 07-07-2013 meningococcal polysaccharide (groups A, C, Y and W-135) diphtheria toxoid conjugate vaccine (MCV4P) Martina Rodriguez MD, PhD Work Phone: [facility] Work Phone: 07-07-2013 tetanus toxoid, redu ollie diphtheria toxoid, and acellular pertussis vaccine, adsorbed Martina Rodriguez MD, PhD Work Phone: [facility] 08-04-2009 influenza virus vaccine, unspecified formulation Martina Rodriguez MD, PhD Work Phone: [facility] 07-05-2008 hepatitis A vaccine, unspecified formulation Martina Rodriguez MD, PhD Work Phone: [facility] 09-09-2007 influenza virus vaccine, unspecified formulation Martina Rodriguez MD, PhD Work Phone: [facility] Work Phone: 06-19-2007 hepatitis A vaccine, unspecified formulation Martina Rodriguez MD, PhD Work Phone: [facility] 06-19-2007 varicella virus vaccine Parth Rodriguez MD, PhD Work Phone: [facility] 09-14-2006 influenza virus vaccine, unspecified formulation Martina Rodriguez MD, PhD Work Phone: [facility] 05-13-2006 diphtheria, tetanus toxoids and acellular pertussis vaccine Martina Rodriguez MD, PhD Work Phone: [facility] Work Phone: 05-13-2006 measles, mumps and rubella virus vaccine Martina Rodriguez MD, PhD Work Phone: [facility] Work Phone: 05-13-2006 poliovirus vaccine, inactivated Martina Rodriguez MD, PhD Work Phone: [facility] Work Phone: 05-13-2006 varicella virus vaccine Parth Rodriguez MD, PhD Work Phone: [facility] Work Phone: 07-26-2005 influenza virus vaccine, unspecified formulation Martina Rodriguez MD, PhD Work Phone: [facility] Work Phone: 07-30-2004 influenza virus vaccine, unspecified formulation Martina Rodriguez MD, PhD Work Phone: [facility] Work Phone: 06-30-2002 diphtheria, tetanus toxoids and acellular pertussis vaccine Martina Rodriguez MD, PhD Work Phone: [facility] Work Phone: 06-30-2002 poliovirus vaccine, inactivated Martina Rodriguez MD, PhD Work Phone: [facility] Work Phone: 04-04-2002 haemophilus influenz ae type b vaccine, HbOC conjugate Martina Rodriguez MD, PhD Work Phone: [facility] Work Phone: 04-04-2002 measles, mumps and rubella virus vaccine Martina Rodriguez MD, PhD Work Phone: [facility] Work Phone: 12-16-2001 hepatitis B vaccine, pediatric or pediatric/adolescent dosage Martina Rodriguez MD, PhD Work Phone: [facility] Work Phone: 12-16-2001 pneumococcal conjuga te vaccine, 7 valent Martina Rodriguez MD, PhD Work Phone: [facility] Work Phone: 09-30-2001 pneumococcal conjuga te vaccine, 7 valent Martina Rodriguez MD, PhD Work Phone: [facility] Work Phone: 06-24-2001 diphtheria, tetanus toxoids and acellular pertussis vaccine Martina Rodriguez MD, PhD Work Phone: [facility] Work Phone: 06-24-2001 haemophilus influenz ae type b vaccine, HbOC conjugate Martina Rodriguez MD, PhD Work Phone: [facility] Work Phone: 06-24-2001 pneumococcal conjuga te vaccine, 7 valent Martina Rodriguez MD, PhD Work Phone: [facility] Work Phone: 04-12-2001 diphtheria, tetanus toxoids and acellular pertussis vaccine Martina Rodriguez MD, PhD Work Phone: [facility] Work Phone: 04-12-2001 haemophilus influenz ae type b vaccine, HbOC conjugate Martina Rodriguez MD, PhD Work Phone: [facility] Work Phone: 04-12-2001 poliovirus vaccine, inactivated Martina Rodriguez MD, PhD Work Phone: [facility] Work Phone: 02-03-2001 diphtheria, tetanus toxoids and acellular pertussis vaccine Martina Rodriguez MD, PhD Work Phone: [facility] Work Phone: 02-03-2001 haemophilus influenz ae type b vaccine, HbOC conjugate Martina Rodriguez MD, PhD Work Phone: [facility] Work Phone: 02-03-2001 poliovirus vaccine, inactivated Martina Rodriguez MD, PhD Work Phone: [facility] Work Phone: 2000 hepatitis B vaccine, pediatric or pediatric/adolescent dosage Martina Rodriguez MD, PhD Work Phone: [facility] Work Phone: 2000 hepatitis B vaccine, pediatric or pediatric/adolescent dosage Martina Rodriguez MD, PhD Work Phone: [facility] Work Phone: Payers Date Payer Category Payer Private Health Insurance [id number] 2024 Unknown [id number] 2023 Unknown [id number] 2022 Private Health Insurance [id number] 2022 Self-pay 2020 Private Health Insurance [id number] 2020 Private Health Insurance [id number]. [id number] 2000 Unknown [id number] 2.16.840.1.400102.3.579.2.7 2000 Unknown [id number] 2.16.840.1.793647.3.579.2. 2000 Unknown [id number] 2.16.840.1.290756.3.579.2. 2000 Unknown [id number] 2.16.840.1.410211.3.579.2. 2000 Unknown [id number] 2.16.840.1.659832.3.579.2. 2000 Unknown [id number] 2.16.840.1.244330.3.579.2. 2000 Unknown [id number] 2.16.840.1.887297.3.579.2. 2000 Unknown [id number] 2.16.840.1.678995.3.579.2 2000 Unknown [id number] 2.16.840.1.394906.3.579.2. 2000 Unknown [id number] 2.16.840.1.099596.3.579.2. 2000 Unknown [id number] 2.16.840.1.151844.3.579.2. 2000 Unknown [id number] 2.16.840.1.805827.3.579.2.1285 2000 Unknown [id number] 2.16.840.1.301049.3.579.2.1285 2000 Unknown [id number] 2.16.840.1.883217.3.579.2.1285 2000 Unknown [id number] 2.16.840.1.682775.3.579.2. 2000 Unknown [id number] 2.16.840.1.899346.3.579.2 2000 Unknown [id number] 2.16.840.1.189222.3.579.2.9 2000 Unknown [id number] 2.16.840.1.633554.3.579.2.9 2000 Unknown [id number] 2.16.840.1.385664.3.579.2.9 2000 Unknown [id number] 2.16.840.1.500302.3.579.2.9 2000 Unknown [id number] 2.16.840.1.340877.3.579.2.9 2000 Unknown [id number] 2.16.840.1.302959.3.579.2.1258 2000 Unknown [id number] 2.16.840.1.264654.3.579.2.1258 2000 Unknown [id number] 2.16.840.1.176723.3.579.2.9 2000 Unknown [id number] 2.16.840.1.664077.3.579.2.9 2000 Unknown [id number] 2.16.840.1.485767.3.579.2.1259 Private Health Insurance [facility] [id number] Unknown [id number] 2.16.840.1.772221.3.579.2.531 Unknown [facility] Employees [id number] Unknown [id number] 2.16.840.1.199014.3.579.2.531 Social History Date Type Detail Facility Start: 03-08-2023 End: 07-05-2024 Sex Assigned At [facility] Other Start: 09-27-2014 End: 07-05-2024 Tobacco smoking status VTIS Never smoked tobacco [facility] History of tobacco use Passive smoker [facility] Start: 03-08-2023 Alcohol intake Not Asked Joni [facility] Start: 2000 Sex Assigned At Not on file C [facility] Start: 2000 Sex Assigned At Female F [facility] Start: 03-08-2023 End: 07-05-2024 History of Social function [facility] Start: 07-05-2024 Tobacco use and exposure Smokeless tobacco non-user [facility] Start: 07-19-2024 End: 08-14-2024 Alcoholic beverage intake Ex-drinker (finding) [facility] Start: 01-06-2024 NOMS Malgorzatat pamela [...] 4 mg, Oral, Every 6 hours PRN Zzeyqses-Zwd-Uy-FA ( 1 + IRON PO) ALLERGIES Allergies [...] nursing note reviewed. Exam conducted with a gas plumber present. Vitals: There is no height or [...] Dami Canseco DO documented in this encounter [facility] 07-31-2024 History of Presen t illness Narrative [...] 4 mg, Oral, Every 6 hours PRN Ddwzwmzr-Qhy-Jp-FA ( 1 + IRON PO) ALLERGIES Allergies [...] Documented by NIDIA Multani on behalf of: Daim Canseco DO documented in this encounter [facility] 09-15-2023 Evaluation note Encounter Date [...] in office today for physical therapy to [facility]. Discussed continuation of dvwy-fyn-viwyeih medications as needed. Take muscle relaxer as [...] in office today for physical therapy to [facility]. Discussed continuation of jsig-kir-ygexqml medications as needed. Take muscle relaxer as [...] that were not corrected during review process. [employer] Other 09-12-2023 Evaluation note* Encounter Date Diagnosis [...] that were not corrected during review process. [employer] Other 07-26-2023 Evaluation note* Encounter Date Diagnosis [...] that were not corrected during review process. [employer] Other 06-18-2023 NoteEchocardiology Procedure Exam Date/Time Accession # Ordering ECG Stress Exercise 04/15/2023 08:43 EDT [id number] Benjamin Baker MD CPT code 75861 Reason for Exam (ECG Stress Exercise) I95.1;Dizziness [...] Benjamin Baker MD Transcribed by: angela Technologist: [facility]06-16-2023 Note Echocardiology Procedure Exam Date/Time Accession # Ordering Echo Transthoracic 04/15/2023 09:42 EDT [id number] Benjamin Baker MD Complete CPT code 70074 83958 Reason for Exam (Echo Transthoracic Complete) I95.9;Hypotension Report [facility] [address] [place] [address] Adult Echocardiogram Report Name: EMMY DALE Study Date: 04/15/2023 09:02 AM BP: 105/71 mmHg Patient Location: [facility] HR: 75 : 2000 Gender: Female Height: 63 in Age: 22 yrs Ethnicity: T Weight: 178 lb Reason For Study: Hypotension BSA: 1.8 m2 History: No cardiac history per patient Ordering Physician: Samuel^Benjamin^John Referring Physician: Benjamin Baker Performed By: Jonelle Alvarez, [facility] Interpretation Summary Ejection Fraction = 60-65%. [...] Benjamin Baker MD Transcribed by: YOVANI Technologist: [facility]05-09-2023 Note HNO ID: [id number] Author: Martina Rodriguze MD, PhD Service: ? Author Type: Physician [...] Arthritis Father in blood . was at [facility] when baby thought to be [...] Plan: Will monitor thyroid (more content not included)...[facility] 03-08-2023 History of Present illness Narrative* [...] Arthritis Father in blood . was at [facility] when baby thought to be [...] Martina Rodriguez MD, PhD [facility]* Encounter Date Diagnosis Assessment [...] I would recommend referral to a different last putter away. Patient does have the name of an last putter away that she would like referred to. We will put that referral in today. Dr. Roger Kim - [facility] Endocrinology, [facility] February, Dizziness (ICD-10 - R42) Discussed her [...] that were not corrected during review process. [facility] Other 10-06-2022 Evaluation note* Encounter Date Diagnosis [...] to ER, I highly recommend she call PSYCHOLOGIST EXPERIMENTAL the second she leaves our office to follow-up.She needs to let them know about her concerns.I explained to her that even though she may assume that her PSYCHOLOGIST EXPERIMENTAL will not listen her , I still want her to reach out to that office and explained to them her current concerns. She wants to know what the immediate treatment would be and work-up for spinal headache and possible leak however I cannot provide her with this information as I am not PSYCHOLOGIST EXPERIMENTAL. Jul, Hip pain (ICD-10 - M25.559) While [...] I did discuss with her concerns over defr-feo-wgogqxd medications during breast-feeding. Discussed recommendations currently and please bring this up to PSYCHOLOGIST EXPERIMENTAL as well for further recommendations. Does not [...] I would like her to follow-up with PSYCHOLOGIST EXPERIMENTAL or go to ER regarding this dizziness and we can follow-up in office after. If nothing comes from an PSYCHOLOGIST EXPERIMENTAL/spinal headache/spinal leak standpoint, we can order CT [...] that were not corrected during review process. [place] [employer] Other 11-10-2009 History of Past illness Narrative* Problem Noted Date Resolved Date Constipation 09/09/2009 08/28/2014 documented as of this encounter (statuses as of 03/09/2023) [facility]11-[facility] History of Past illness Narrative* Problem Noted Date Diagnosed Date Resolved Date Constipation 09/09/2009 08/28/2014 documented as of this encounter (statuses as of 08/09/2023) [facility]No [facility] Other Evaluation note* Diagnosis Vikki's thyroiditis- Primary Chronic lymphocytic thyroiditis [facility]No assessment information [facility] Work Phone: Evaluation note* Diagnosis Vikki's thyroiditis- Primary Chronic lymphocytic thyroiditis [facility]* Diagnosis 31 weeks gestation of Third [...] Vikki's thyroiditis Medical History Pre-eclampsia Surgical History [place] teeth extract 2017 Surgical History Vaginal childbirth 03/2022 Hospitalization History See surgical [facility] Other History general Narrative - Reported* Type Description Date Medical History Exercise-induced asthma Medical History Pityriasis rosea Medical History Tachycardia Medical History Vikki's thyroiditis Medical History Asthma Medical History Pre-eclampsia Medical History Hypotension Surgical History [place] teeth extract 2017 Surgical History Vaginal childbirth 03/2022 Hospitalization History See surgical hx [facility] Other History general Narrative - Reported* Type Description Date Medical History Exercise-induced asthma Medical History Pityriasis rosea Medical History Tachycardia Medical History Vikki's thyroiditis Medical History Asthma Medical History Pre-eclampsia Medical History Hypotension Medical History GERD (gastroesophageal reflux di sease) Surgical History [place] teeth extract 2016 Surgical History Vaginal childbirth 03/2022 Surgical History EGD/colonoscopy 2011 Hospitalization History See surgical hx [facility] Other History general Narrative - Reported* Type Description Date Medical History Exercise-induced asthma Medical History Pityriasis rosea Medical History Tachycardia Medical History Vikki's thyroiditis Medical History Asthma Medical History Pre-eclampsia Medical History Hypotension Medical History GERD (gastroesophageal reflux di sease) Medical History Thyromegaly Surgical History [place] teeth extract 2017 Surgical History Vaginal childbirth 03/2022 Surgical History EGD/colonoscopy 2011 Hospitalization History See surgical [facility] Other Hiseoqb general Narrative - Reported* Type Description Date Medical History Exercise-induced asthma Medical History Pityriasis rosea Medical History Tachycardia Medical History Vikki's thyroiditis Medical History Asthma Medical History Pre-eclampsia Medical History Hypotension Medical History GERD (gastroesophageal reflux di sease) Medical History Thyromegaly Medical History Other idiopathic scoliosis, thor acic region Surgical History [place] teeth extract 2017 Surgical History Vaginal childbirth 03/2022 Surgical History EGD/colonoscopy 2011 Hospitalization History See surgical [facility] Other Summary Purpose Family History No Family [...] gastriti s with hemorrhage (K29.01) Referral Organization [facility] [email or web address] Referring Provider First Name Lyndon Referring Provider Last Name [facility] Referring Provider Specialty Nurse Pract itioner Referred Organization [facility] Gastroenterolo gy Referred Provider Patricio Urena Referred Address [address] [address] ,[place], [place],[address] Referred Provider Specialty Gastroentero logy Referral Priority Routine General Notes [facility] 023 10:08:56 AM >Received today. [facility] request us to fill out their form and fax to them. They will review the referral and call patient to schedule them. Referral was fax. [facility]23 01:31:38 PM >Per telephone encounter, patient wants to try [facility] Gastro doctors. Sent P2P Reason *03/08 Dr. Hawa Kim - [facility] Endocrinology, [facility]; [employer]- please send this note with 2 previous notes Diagnosis 1 Vikki's thyroidi tis (E06.3) Referral Organization [facility] [email or web address] Referring Provider First Name Lyndon Referring Provider Last Name [facility] Referring Provider Specialty Nurse Pract itioner Referred Organization [facility] Referred Address [address] [place], [place],[address] Referred Provider Specialty Endocrinolog y Referral Priority Routine General Notes [facility] 023 01:21:05 PM >Received today and referral was fax with the [facility] Form. They will review and call patient to schedule Reason *03/08 Dizzines s- TERRENCE; Please send this note with 2 previous notes Diagnosis 1 Dizziness (R42) Referral Organization [facility] [email or web address] Referring Provider First Name Lyndon Referring Provider Last Name [facility] Referring Provider Specialty Nurse Pract itioner Referred Organization [facility] Referred Provider Jose Dominguez Referred Address [address] [place], [place],[address] Referred Provider Specialty Neurology Referral Priority Routine [...] and content) DATE CREATED AUTHOR 08/06/2022 [facility] DATE CREATED AUTHOR AUTHOR'S ORGANIZ ATION 08/20/2023 [facility] DATE CREATED AUTHOR AUTHOR'S ORGANIZ ATION 04/06/2024 Millan Yell [facility] DATE CREATED AUTHOR AUTHOR'S ORGANIZ ATION 05/03/2024 [facility] DATE CREATED AUTHOR AUTHOR'S ORGANIZ ATION 05/18/2024 [facility] DATE CREATED AUTHOR AUTHOR'S ORGANIZ ATION 06/14/2024 [facility] DATE CREATED AUTHOR AUTHOR'S ORGANIZ ATION 06/26/2024 Millan Nilton [facility] DATE CREATED AUTHOR AUTHOR'S ORGANIZ ATION 07/07/2024 [facility] DATE CREATED AUTHOR AUTHOR'S ORGANIZ ATION 07/24/2024 Millan Nilton [facility] DATE CREATED AUTHOR AUTHOR'S ORGANIZ ATION 07/29/2024 Millan Yell [facility] DATE CREATED AUTHOR AUTHOR'S ORGANIZ ATION 08/16/2024 [facility] dical Specialists [facility] DATE CREATED AUTHOR AUTHOR'S ORGANIZ ATION 08/21/2024 [facility] ica Center REASON FOR VISIT (unrecogniz ed [...] or prosecute any alcohol or drug abuse patient.[facility] Hospital[facility] the event this information is protected by the Federal Confidentiality of Alcohol and Drug Abuse Patient Records regulations: The Federal rules restrict any use of the information to criminally investigate or prosecute any alcohol or drug abuse patient.[facility] Care Teams (unrecognized sec tion and content) Library Cataloging Technician Relationship Specialty Start Date End Date Lyndon Dalal CNP [address] [address] PCP - General Family Medicine 03/08/23 Lyndon Dalal CNP [address] [address] Referring Family Medicine 03/04/23 Team Status: Active Member Role Status Dates Lyndon Dalal APRN Primary Care Provider Active Team Status: Inactive Member Role Status Dates Lyndon Dalal APRN Primary Care Provider, Attend ing Provider Active Library Cataloging Technician Relationship Specialty Start Date End Date Lyndon Dalal CNP [address] [address] PCP - General Family Medicine 03/08/23 Lyndon Dalal CNP [address] [address] Referring Family Medicine 03/04/23 Library Cataloging Technician Relationship Specialty Start Date End Date Ge Cloud MD [address] [address] PCP - General Family Medicine 01/25/24 Library Cataloging Technician Relationship Specialty Start Date End Date Ge Cloud MD [address] [address] PCP - General Family Medicine [...] BE BASED ON THE PRIMARY CLINICAL RECORDS. [employer] [facility]. provides no warranty or guarantee of the accuracy or completeness of information in this document.
--- NOTE | 2024-08-25 14:00 | US_ITS ---
[address] [address] Patient Name: EMMY DALE MRN: [id number] date: 2000 Sex: F Assigned Patient Location: [facility] Current Patient Location: Accession/Order Number: [id number] Exam Date: 08/25/2024 14:00 Report Date: 08/27/2024 04:38 At the request of: ANN GONGORA Procedure: US OB growth EXAMINATION: US OB growth HISTORY: low eduard, hypothyroidism, h/o preeclampsia COMPARISON: Ultrasound OB growth 08/04/2024 FINDINGS: Heart Rate: 127.36 bpm Amniotic Fluid Volume: 13.4 cm; normal range Number: 1 Position: CEPHALIC BIOMETRY: BPD: 8.57 cm; 34 weeks 4 days; 35 % HC: 31.44 cm; 35 weeks 2 days; 19.90 % AC: 29.56 cm; 33 weeks 4 days; 14.80 % FL: 6.29 cm; 32 weeks 4 days; 3 % EFW: 2213.39 g; 10.80 % FL/AC: 21.27 FL/BPD: 73.39 HC/AC: 1.06 GESTATIONAL AGE: Age by EDC: 35 weeks 1 day DUKE by EDC: 2024-09-28 Age by US: 34 weeks 0 days DUKE by US: 2024-10-06 US/US OB growth IMPRESSION: 1. Single live intrauterine with growth detailed above. 2. Femur length is < 3rd percentile. Electronically authenticated by: ANGELY NUR Date: 08/27/2024 04:38
[2024-08-25 14:19] VITALS: BP 116/64; PULSE 83
== END 2024-08-25 14:44 | disposition home or self-care (01) ==
LOC: US 06:49 → FBC 13:45
PROVIDERS: PCP Family Medicine; Visit Provider Physician Assistant
DX: E07.9 Disorder of thyroid, unspecified (principal); Z87.59 Personal history of other complications of pregnancy, childbirth and the puerperium; Z3A.35 35 weeks gestation of pregnancy
CPT/HCPCS: 76816; 76818

== ENCOUNTER 2024-08-29 07:19 | Outpatient (OUT) | payer OTHER, SELFPAY ==
--- OUTSIDE RECORDS SUMMARY | 2024-08-29 07:22 | XMS_ITS | CCD ---
Author Organization [facility] Care Team Providers Care State Epidemiologist Name Role Phone Lyndon Dalal Primary Care Unavailable Juancarlos Maria Attending Unavailable Juancarlos Maria Admitting Unavailable Yoselin, Lyndon Unavailable Dallas Dalal CNPa Unavailable [phone] Lyndon Dalal CNP Primary Care Provider [phone] ANKIT Dalal Primary Care Provider ANKIT Dalal Attending Provider [phone] YOSELIN, LYNDON Primary Care Unavailable MARTINA RODRIGUEZ [...] Dami R Attending Unavailable Pedro Luis VELAZQUEZ, Crooks Primary Care Provider [phone] AJITH, DAMI Attending Unavailable AJITH, DAMI Attending Unavailable AJITH, DAMI Attending Unavailable MELO, LELE Attending Unavailable AJITH, DAMI Attending Unavailable AJITH, DAMI Attending Unavailable MELO, LELE Attending Unavailable AJITH, DAMI Attending Unavailable AJITH, DAMI Attending Unavailable AJITH, DAMI Attending Unavailable Allergies Allergy Classification Reported Allergen(s) Allergy Type Date of Onset Reaction(s) Facility Sulfonamides (antibiotic) (1 source) Sulfonamides (Antibiotic); Translations: [sulfa drugs] Drug Allergy [facility] (6 sources) Sulfonamides (Antibiotic); Translations: [SULFA (SULFONAMIDE ANTIBIOTICS)] Drug allergy (disorder) 5 [facility] Repository (2 sources) Sulfonamide Drug allergy [facility] Other (20 sources) Substance with sulfonamide structure and antibacterial mechanism of action (substance) [facility] (3 sources) Sulfonamides (Antibiotic); Translations: [sulfa drugs] Propensity to adverse reactions (disorder) [facility] Medications Current Medications Medication Drug Class(es) Dates Sig (Normalized) Sig (Original) aspirin 81 mg delayed release oral tablet (8 sources) Platelet Aggregation Inhibitor, Nonsteroidal Anti-inflammatory Drug take 1 tablet by mouth in the morning aspirin 81 MG EC tablet Take 81 mg by mouth in the morning. Active calcium polycarbophil 625 mg oral tablet (8 sources) take 1 tablet by mouth once [...] Active docusate sodium 100 mg oral capsule (8 sources) take 1 capsule by mouth once daily docusate sodium (Colace) 100 MG capsule Take 100 mg by mouth Daily Active Lecithin (2 sources) Lecithin Sunflow er Lecithin, one capsule daily Active levothyroxine sodium 0.1 mg oral tablet (20 sources) l-Thyroxine Start: 06-25-2024 take 1 tablet [...] daily. magnesium oxide 400 mg oral tablet (8 sources) Start: 024 End: 025 take 1 [...] Active ondansetron 4 mg disintegrating oral tablet (8 sources) Serotonin-3 Receptor Antagonist Start: take 1 [...] a day for 5 days Aug, Active Alocksjj-Ugw-El-FA ( 1 + IRON PO) (8 sources) Start: Tfnqyjfu-Bfa-Ay-FA ( 1 + IRON PO) 01/20/2024 Active [...] by fredi th every twenty-four hours Biotin 72011 MCG 1 tablet Orally Once a day OTC Not-Taking/PRN take 1 tablet by fredi th every twenty-four hours Biotin 89815 MCG 1 tablet Orally Once a day OTC Not-Taking take 1 tablet by mouth once [facility] [place] [facility] y Biotin 24176 MCG 1 tablet Orally Once a day OTC Not-Taking BIOTIN ORAL Take by mouth q 24 HR. 0 Active take 1 tablet by mouth once [place] [facility] Biotin 52511 MCG 1 tablet Orally Once a day [...] Comment on above: Take 1 tablet by [facility] once daily. Iodine (14 sources) Iodine [...] Probiotic OTC, daily Active lactobacillus rhamnosus gg [id number] unt oral capsule (1 source) Start: 5 End: 3 take 1 capsule by mouth once daily lactobacillus rhamnosus (CULTURELLE) 10 billion cell capsule Indications: Abdominal pain Take 1 capsule by mouth once daily. 30 capsule 2 04/30/2015 03/08/2023 Discontinued Comment on above: Take 1 capsule by mo [facility] once daily. Moringa (14 sources) Moringa 6000MG, one capsule, daily, OTC Not-Taking/PRN Moringa 6000MG, one capsule, daily, OTC Not-Taking Moringa 6000MG, one capsule, daily, OTC Active MULTI-VITAMIN ORAL (2 sources) MULTI-VITAMIN OR AL Multivitamin OTC, daily Active 0 Active Comment on above: Multivitamin OTC, da acrlton Active Multivitamin preparation (12 sources) Multivitamin OTC [...] Comment on above: Take 1 capsule by [facility] once daily. pantoprazole 20 mg delayed release [...] trimester] Onset: 05-14-2024 Episodic Other complications of (8 sources) Abnormal amniotic fluid; Translations: [Other abnormal findings on screening of mother] Onset: 07-05-2024 07-05-2024 Episodic Other inflammatory condition of skin (14 sources) Pityriasis rosea; Translations: [Pityriasis rosea] Chronic Other non-traumatic joint disorders (1 source) Pain in unspecified hip Episodic Other nutritional; endocrine; and metabolic disorders (1 source) Abnormal weight loss Episodic Other and delivery including normal (7 sources) Encounter for care and examination of [...] ] Onset: 05-14-2024 Episodic Residual codes; unclassified (8 sources) Gestation period, 27 weeks; Translations: [27 weeks gestation of ] Onset: 07-05-2024 07-05-2024 Episodic Residual codes; unclassified (2 sources) Gestation period, 31 weeks; Translations: [31 weeks gestation of ] 07-31-2024 Episodic Residual codes; unclassified (2 sources) Gestation period, 33 weeks; Translations: [33 weeks gestation of ] 08-14-2024 Episodic Residual codes; unclassified (2 sources) Gestation period, 35 weeks; Translations: [35 weeks gestation of ] 08-27-2024 Episodic Spondylosis; intervertebral disc disorders; other back [...] Range Facility Urinalysis macro (dipstick) panel (U)on 08-27-2024 Bilirubin, UA Negative Negative - 4(70) +++ mg/dL [facility] Blood, UA Negative Negative - 50 Juanito/mcL [facility] Clarity, UA Clear [facility] Color, UA Yellow [facility] Glucose, UA Negative Negative - 2000(110) ++++ mg/dL [facility] Interpretation and review of laboratory results Abnormal [facility] Ketones, UA Negative Negative - 160(16) ++++ mg/dL [facility] Leukocytes, UA Trace Negative - 500+++ Ken/mcL [facility] Nitrite, UA Negative Negative - Positive [facility] pH, UA 6.5 5 - 9 [facility] Protein, UA Negative Negative - 2000(20) ++++ mg/dL [facility] Spec Grav, UA 1.015 1 - 1.03 [facility] Urobilinogen, UA 0.2 0.2 - 12 mg/dL [facility] TSHon 08-20-2024 TSH Qn 1.87 m[IU]/L Normal 0.34-5.60 [facility] Comment on above: Performed By: #### 2 [id number] #### [facility] [address] [place] [address] Urinalysis macro (dipstick) panel (U)on 08-14-2024 Bilirubin, UA Negative Negative - 4(70) +++ mg/dL [facility] Blood, UA Negative Negative - 50 Juanito/mcL [facility] Clarity, UA Clear [facility] Color, UA Yellow [facility] Glucose, UA Negative Negative - 1999(110) ++++ mg/dL [facility] Interpretation and review of laboratory results Abnormal [facility] Ketones, UA Negative Negative - 160(16) ++++ mg/dL [facility] Leukocytes, UA Trace Negative - 500+++ Ken/mcL [facility] Nitrite, UA Negative Negative - Positive [facility] pH, UA 6.5 5 - 9 [facility] Protein, UA Negative Negative - 1999(20) ++++ mg/dL [facility] Spec Grav, UA 1.015 1 - 1.03 [facility] Urobilinogen, UA 0.2 0.2 - 12 mg/dL [facility] Urinalysis macro (dipstick) panel (U)on 07-31-2024 Bilirubin, UA Negative Negative - 4(70) +++ mg/dL [facility] Blood, UA Negative Negative - 50 Juanito/mcL [facility] Healthcare Clarity, UA Clear [facility] Color, UA Yellow [facility] Glucose, UA Negative Negative - 1999(110) ++++ mg/dL [facility] Interpretation and review of laboratory results Abnormal [facility] Ketones, UA Negative Negative - 160(16) ++++ mg/dL [facility] Leukocytes, UA Positive Negative - 500+++ Ken/mcL [facility] Comment on above: small Nitrite, UA Negative Negative - Positive [facility] pH, UA 6.5 5 - 9 [facility] Protein, UA Negative Negative - 1999(20) ++++ mg/dL [facility] Spec Grav, UA 1.010 1 - 1.03 [facility] Urobilinogen, UA 0.2 0.2 - 12 mg/dL [facility] CBC w/ Auto Diffon 4 Basophils/100 WBC (Bld) 0.4 % Normal 0.0-2.0 [facility] Comment on above: Performed By: #### 2 [id number] #### [facility] [address] [place] [address] Basophils/Leukocyt es Auto (Bld) [Pure # fraction] 0.0 E9/L Normal 0.0-0.2 [facility] Comment on above: Performed By: #### 2 422931 #### [facility] [address] [place] [address] Eosinophils (Bld) [#/Vol] 0.2 E9/L Normal 0.0-0.5 [facility] Comment on above: Performed By: #### 2 211607 #### [facility] [address] [place] [address] Eosinophils/100 WBC (Bld) 2.9 % Normal 0.0-8.0 [facility] Comment on above: Performed By: #### 2 202973 #### [facility] [address] [place] [address] Erythrocyte distribution width (RBC) [Ratio] 13.6 % Normal 10.9-14.2 [facility] Comment on above: Performed By: #### 2 444628 #### [facility] [address] [place] [address] Hematocrit (Bld) [Volume fraction] 37.3 % Normal 34.0-46.0 [facility] Comment on above: Performed By: #### 2 763223 #### [facility] [address] [place] [address] Hemoglobin (Bld) [Mass/Vol] 12.8 g/dL Normal 12.0-16.0 [facility] Comment on above: Performed By: #### 2 693819 #### [facility] [address] [place] [address] Lymphocytes (Bld) [#/Vol] 1.9 E9/L Normal 1.0-4.0 [facility] Comment on above: Performed By: #### 2 063102 #### [facility] [address] [place] [address] Lymphocytes/100 WBC (Bld) 24.0 % Normal 14.0-50.0 [facility] Comment on above: Performed By: #### 2 177951 #### [facility] [address] [place] [address] MCH (RBC) [Entitic mass] 30.5 pg Normal 27.0-34.0 [facility] Comment on above: Performed By: #### 2 829630 #### [facility] [address] [place] [address] MCHC (RBC) [Mass/Vol] 34.2 g/dL Normal 31.4-36.0 [facility] Comment on above: Performed By: #### 2 183880 #### [facility] [address] [place] [address] MCV (RBC) [Entitic vol] 89.0 fL Normal 80.0-100.0 [facility] Comment on above: Performed By: #### 2 776601 #### [facility] [address] [place] [address] Monocytes (Bld) [#/Vol] 0.4 E9/L Normal 0.2-1.0 [facility] Comment on above: Performed By: #### 2 774763 #### [facility] [address] [place] [address] Neutrophils (Bld) [#/Vol] 5.5 E9/L Normal 2.0-7.5 [facility] Comment on above: Performed By: #### 2 288784 #### [facility] [address] [place] [address] Neutrophils/100 WBC (Bld) 67.8 % Normal 36.0-75.0 [facility] Comment on above: Performed By: #### 2 452763 #### [facility] [address] [place] [address] Platelet mean volume (Bld) [Entitic vol] 8.3 fL Normal 6.4-10.8 [facility] Comment on above: Performed By: #### 2 459797 #### [facility] [address] [place] [address] [place] [address] Platelets (Bld) [#/Vol] 267.0 E9/L Normal 150.0-500.0 [facility] Comment on above: Performed By: #### 2 683063 #### [facility] [address] [place] [address] RBC (Bld) [#/Vol] 4.2 E12/L Low 4.3-5.9 [facility] Comment on above: Performed By: #### 2 360155 #### [facility] [address] [place] [address] WBC corrected for nucl RBC Auto (Bld) [#/Vol] 8.0 E9/L Normal 4.0-11.0 [facility] Comment on above: Performed By: #### 2 375206 #### [facility] [address] [place] [address] Free T4on 07-23-2024 Free T4 [Mass/Vol] 0.57 ng/dL Low 0.58-1.64 [facility] Comment on above: Performed By: #### 2 708157 #### [facility] [address] [place] [address] Lyteson 07-23-2024 Anion gap [Moles/Vol] 12 mmol/L Normal 6-16 [facility] Comment on above: Performed By: #### 2 704476 #### [facility] [address] [place] [address] Chloride [Moles/Vol] 105 mmol/L Normal 101-111 [facility] Comment on above: Performed By: #### 2 343228 #### [facility] [address] [place] [address] CO2 [Moles/Vol] 24 mmol/L Normal 21-31 [facility] Comment on above: Performed By: #### 2 272181 #### [facility] [address] [place] [address] Potassium [Moles/Vol] 3.5 mmol/L Normal 3.5-5.3 [facility] Comment on above: Performed By: #### 2 894099 #### [facility] [address] [place] [address] Sodium [Moles/Vol] 137 mmol/L Normal 135-145 [facility] Comment on above: Performed By: #### 2 602741 #### [facility] [address] [place] [address] TSHon 07-23-2024 TSH Qn 2.26 m[IU]/L Normal 0.34-5.60 [facility] Comment on above: Performed By: #### 2 148525 #### [facility] [address] [place] [address] CMPon 06-25-2024 Albumin [Mass/Vol] 3.6 g/dL Normal 3.3-5.0 [facility] Comment on above: Performed By: #### 2 110504 #### [facility] [address] [place] [address] Albumin/Globulin (S) [Mass conc ratio] 1.3 Normal 1.1-2.2 [facility] Comment on above: Performed By: #### 2 333759 #### [facility] [address] [place] [address] ALP [Catalytic activity/Vol] 63 Int._Unit/L Normal 21-98 [facility] Comment on above: Performed By: #### 2 972129 #### [facility] [address] [place] [address] ALT No additional P-5'-P [Catalytic activity/Vol] 13 Int._Unit/L Normal 6-46 [facility] Comment on above: Performed By: #### 2 997517 #### [facility] [address] [place] [address] Anion gap [Moles/Vol] 10 mmol/L Normal 6-16 [facility] Comment on above: Performed By: #### 2 003185 #### [facility] [address] [place] [address] AST [Catalytic activity/Vol] 12 Int._Unit/L Normal 5-43 [facility] Comment on above: Performed By: #### 2 526034 #### [facility] [address] [place] [address] Bilirubin [Mass/Vol] 0.7 mg/dL Normal 0.0-1.1 [facility] Comment on above: Performed By: #### 2 290390 #### [facility] [address] [place] [address] Calcium [Mass/Vol] 8.6 mg/dL Low 8.9-11.1 [facility] Comment on above: Performed By: #### 2 761476 #### [facility] [address] [place] [address] Chloride [Moles/Vol] 104 mmol/L Normal 101-111 [facility] Comment on above: Performed By: #### 2 017926 #### [facility] [address] [place] [address] CO2 [Moles/Vol] 25 mmol/L Normal 21-31 [facility] Comment on above: Performed By: #### 2 366460 #### [facility] [address] [place] [address] Creatinine [Mass/Vol] 0.4 mg/dL Low 0.5-1.3 [facility] Comment on above: Performed By: #### 2 666539 #### [facility] [address] [place] [address] Globulin (S) [Mass/Vol] 2.8 g/dL Normal 1.4-4.0 [facility] Comment on above: Performed By: #### 2 500619 #### [facility] [address] [place] [address] Glucose [Mass/Vol] 97 mg/dL Normal 55-199 [facility] Comment on above: Performed By: #### 2 651904 #### [facility] [address] [place] [address] Potassium [Moles/Vol] 3.4 mmol/L Low 3.5-5.3 [facility] Comment on above: Performed By: #### 2 104114 #### [facility] [address] [place] [address] Protein [Mass/Vol] 6.4 g/dL Normal 6.0-7.8 [facility] Comment on above: Performed By: #### 2 648556 #### [facility] [address] [place] [address] Sodium [Moles/Vol] 136 mmol/L Normal 135-145 [facility] Comment on above: Performed By: #### 2 116884 #### [facility] [address] [place] [address] Urea nitrogen [Mass/Vol] 8 mg/dL Normal 5-21 [facility] Comment on above: Performed By: #### 2 397929 #### [facility] [address] [place] [address] Urea nitrogen/Creatinin e [Mass ratio] 20 No Units Normal 10-20 [facility] Comment on above: Performed By: #### 2 705997 #### [facility] [address] [place] [address] TSHon 06-25-2024 TSH Qn 3.63 m[IU]/L Normal 0.34-5.60 [facility] Comment on above: Performed By: #### 2 355663 #### [facility] [address] [place] [address] eGFRon 06-25-2024 eGFR 142 mL/min/1.73 m2 Normal >=59 [facility] Comment on above: Order Comment: Order added by Discern Expert. Performed By: #### 1 [id number] #### [facility] [address] [place] [address] TSHon 05-31-2024 TSH Qn 1.99 m[IU]/L Normal 0.34-5.60 [facility] Comment on above: Performed By: #### 2 840625 #### [facility] [address] [place] [address] TSHon 05-01-2024 TSH Qn 1.54 m[IU]/L Normal 0.34-5.60 [facility] Comment on above: Performed By: #### 2 435924 #### [facility] [address] [place] [address] Consent for Treatmenton Consent for Treatment [id number] F Normal [facility] Physician Orderon 04-04-2024 Physician Order [id number] FF Normal [facility] TSHon 04-04-2024 TSH Qn 2.73 m[IU]/L Normal 0.34-5.60 [facility] Comment on above: Performed By: #### 2 931023 #### [facility] [address] [place] [address] XR Spine Cervical 4 or 5 Vie [...] mGy = . DAP = . Normal [facility] XR Spine Thoracic 3 Viewson 09-16-2023 [...] mGy = . DAP = . Normal [facility] Physician Orderon 09-15-2023 Physician Order [id number] IFF Normal [facility] T4 Free SerPl-mCncon 023 Free T4 [Mass/Vol] 1.2 ng/dL Normal 0.9-1.7 [facility] Comment on above: Order Comment: Rozina men Type: BLOOD SPECIMEN Ordering Facility: [facility] Address: [address] [place] [address] Performed By: #### 3 024-7, 3016-3 #### [facility] CLIA [id number] [address] [place] [address] [place] TSH SerPl-aCncon 08-18-2023 TSH Qn 2.280 m[IU]/L Normal 0.270-4.200 [facility] Comment on above: Order Comment: Rozina florez Type: BLOOD SPECIMEN Ordering Facility: [facility] Address: [address] [place] [address] Result Comment: If t he patient is , TSH reference range varies by gestational period: First Trimester (weeks 9-12): 0.180-2.990 mIU/L Second Trimester: 0.110-3.980 mIU/L Third Trimester: 0.480-4.710 mIU/L Noe Ramon et al. A Practical Approach for the Verifications and Determination of Site- and Trimester-Specific Reference Intervals for Thyroid Function tests in . Thyroid, 2019:29:3:412-420. Gregor Banegas, et al. 2017 Guidelines of the [place] [employer] for the Diagnosis and Management of Thyroid Disease during and the . Thyroid, 2017:27:3:315-389. Performed By: #### 3 024-7, 3016-3 #### [facility] CLIA [id number] [address] [place] [address] [place] Consent for Treatmenton Consent for Treatment [id number]: 127 [facility] US Renalon 07-08-2023 US Renal Exam [...] Mendoza M.D. Transcribed by: MORENO Technologist: EMILY [facility] XR Abdomen 1 Viewon 07-08-20 XR [...] mGy = . DAP = . Normal [facility] Ambulatory Visit Summaryon 0 06-21-2023 Ambulatory Visit Summary EMMY DALE :2000 Visit Date:06/21/2023 Ambulatory Visit Instructions Your Diagnosis Urinary crystals Recurrent UTI Urethral stricture Gross hematuria Tests Performed Urnls Dip Stick Auto w/o Microscopy POC 35850 Your Care Team Attending Physician - SOBEIDA [...] URL When: Comments: will call pt. Where: [address] [place] [address] You Need to Complete the Following US Renal, *Est. 06/21/23 due within 1 months, Routine, Order for future visit, Transport Mode: Ambulatory, Reason: Other (please specify), Reason: Kidney Stones, No, Kidney stones, pp_set_radiology_subspec ialty, [facility] XR Abdomen 1 View, *Est. 06/21/23 due within 1 months, Routine, Order for future visit, Transport Mode: Ambulatory, Reason: Kidney stone, No, Kidney stones, pp_set_radiology_subspec ialty, [facility] Medications What How Much When Instructions Unchanged busPIRone (busPIRone 10 mg Tab) 2 times a day Contact prescribing physician if questions or concerns Unchanged levothyroxine (Synthroid 25 mcg(0.025 mg) Tab) Every day Contact prescribing physician if questions or concerns Test Results Urnls Dip Stick Auto w/o Microscopy POC 36410 (06/21/2023) Bilirubin Urine Dipstick - Negative Blood Urine Dipstick - Negative Glucose Urine Dipstick - Negative Ketones Urine Dipstick - Negative Leukocytes Urine Dipstick - Negative Nitrite Urine Dipstick - Negative Protein Urine Dipstick - Negative Specific [place] Urine Dipstick - 1.010 Urine Appearance Urine [...] ? 8 oz (237 mL) of milk, ojlvklz-evgbpxlkxtif-qaw ry milk, and calcium-fortifiedfruit juice. Calcium-fortified means [...] wheat cereals. (more content not included)... Normal [facility] Patient Educationon 06-21-20 Patient Education Nephrology [...] ? 8 oz (237 mL) of milk, zuwgoyg-fkprvduhxseo-ynu ry milk, and calcium-fortifiedfruit juice. Calcium-fortified means [...] Spinach (cooked), rhubarb, beets, sweet potatoes, and Guatemalan chard. ? Peanuts. ? Potato chips, chinese fries, and baked potatoes with skin on. ? Nuts and nut products. ? Chocolate. ? If you regularly take a diuretic medicine, make sure to eat at least 1 or 2 servings of fruits or vegetables that are high in potassium each day. These include: ? Avocado. ? Banana. ? Boaz, prune, carrot, or tomato juice. ? Baked [...] fish oil, or vitamin B6. ? Take zhld-zjb-zwasslc and prescription medicines only as told by your health care provider. These include supplements. What foods should I limit? Limit your in (more content not included)... Normal [facility] Urology Office/Clinic Noteon 06-21-2023 Urology [...] pass. Will send CORDELIA and KUB to [facility] to see if any persistent hydro/any remaining [...] Urnls Dip Stick Auto w/o Microscopy POC 16722 4. Gross hematuria (R31.0: Gross hematuria) CORDELIA [...] When Contact Information SOBEIDA THOMPSON PA-C, URL [address] [place] [address] Additional Instructions: will call pt. Patient Education Dietary Guidelines to Help Prevent Kidney Stones I, Laura Luo, personally scribed for Sobeida Thompson PA-C on 06/21/2023 12:25:11. . Documentation recorded by the annie Lou accurately reflects the services(s) I performed [...] History Cystour (more content not included)... Normal [facility] Comment on above: Result Comment: Elec tronically Signed By: SOBEIDA THOMPSON PA-C.br\Date and Time Signed: 06/21/23 12:44 EDT\.br\Electronically Co-Signed By: Laura Lou.br\Date and Time Co-Signed: 06/21/23 12:25 EDT PAP [id number] 06-07-2023 Cytology report Cyto stain Doc (Cvx/Vag) Note Invalid Interpretation Code [facility] Comment on above: Result Comment: TEST S RESULT FLAG UNITS REF RANGE LAB Clinician Provided Cytology Information Source.............Endocervix No. of containers..01 ThinPrep Vial DIAGNOSIS: 01 NEGATIVE FOR INTRAEPITHELIAL LESION OR MALIGNANCY. Specimen adequacy: 01 Satisfactory for evaluation. Endocervical and/or squamous metaplastic cells (endocervical component) are present. Performed by: Clif Bolaños Professor Of Special Education ([facility]) . 01 Note: Note 01 [...] High,A-Abnormal,AA-Critical Abnormal Performed at: 01 [facility] [address] [address] Lisa Ellington MD, Performed at: [facility] [address] [id number] MD Chandana Gonzalez Performed By: #### 3 [id number] ####[facility] [address] [place] [address] Consent for Treatmenton Consent for Treatment [id number]: 127 Normal [facility] Heart and Vascular Office/Cl inic Noteon [...] but unfortunately she was called by the financial internship and told that it was not working. [...] her Sy (more content not included)... Normal [facility] Comment on above: Result Comment: Elec tronically Signed By: SAMUEL VELAZQUEZ, Benjamin Lopez\.br\Date and Time Signed: 06/01/23 14:25 EDT PAP [id number] 06-01-2023 Collection Technique BRUSH-SPATULA Normal [facility] Comment on above: Performed By: #### 3 [id number] ####[facility] [address] [place] [address] Gynecological Body Site ENDOCERVIX Normal [facility] Comment on above: Performed By: #### 3 [id number] ####[facility] [address] [place] [address] Physician Orderon 06-01-2023 Physician Order [id number]#1.00CD :127 Normal [facility] Physician Order [id number]#1.00CD: 127 Normal [facility] C Urineon 05-27-2023 Bacteria identified Cx [...] Locations R1: This test was performed at: [facility], [address] [place] [address], [address] , , Normal [facility] Comment on above: Performed By: #### 2 [id number] ####[facility] [address] [place] [address] T4 Free SerPl-mCncon 023 Free T4 [Mass/Vol] 1.2 ng/dL Normal 0.9-1.7 [facility] Comment on above: Order Comment: Speci men Type: BLOOD SPECIMEN Ordering Facility: [facility] Address: [address] [place] [address] Performed By: #### 3 024-7, 3016-3 #### [facility] CLIA [id number] [address] [facility] [id number] STATES [place] TSH SerPl-aCncon 05-26-2023 TSH Qn 2.260 m[IU]/L Normal 0.270-4.200 [facility] Comment on above: Order Comment: Speci men Type: BLOOD SPECIMEN Ordering Facility: [facility] Address: [address] [place] [address] Result Comment: If t he patient is , TSH reference range varies by gestational period: First Trimester (weeks 9-12): 0.180-2.990 mIU/L Second Trimester: 0.110-3.980 mIU/L Third Trimester: 0.480-4.710 mIU/L Noe Ramon et al. A Practical Approach for the Verifications and Determination of Site- and Trimester-Specific Reference Intervals for Thyroid Function tests in . Thyroid, 2019:29:3:412-420. Gregor Banegas, et al. 2017 Guidelines of the [place] Thyroid Association for the Diagnosis and Management of Thyroid Disease during and the . Thyroid, 2017:27:3:315-389. Performed By: #### 3 024-7, 3016-3 #### [facility] CLIA [id number] [address] OF [place] Consent for Treatmenton 05-01 Consent for Treatment [id number]#1.00CD: 127 Normal [facility] Physician Orderon 05-25-2023 Physician Order [id number]#1.00CD:12 7 Normal [facility] Urinalysison 05-25-2023 Bacteria LM Ql (Urine sed) 2+ /HPF Abnormal Trace [facility] Comment on above: Performed By: #### 1 [id number] ####[facility] [address] [place] [address] Bilirubin Ql (U) Negative Normal Negative [facility] Comment on above: Performed By: #### 1 [id number] ####[facility] [address] [place] [address] Clarity (U) SL CLOUDY Abnormal Clear [facility] Comment on above: Performed By: #### 1 [id number] ####[facility] [address] [place] [address] Color (U) YELLOW Normal Yellow [facility] Comment on above: Performed By: #### 1 [id number] ####[facility] [address] [place] [address] Crystals LM Ql (Urine sed) Present Normal [facility] Comment on above: Performed By: #### 1 [id number] ####[facility] [address] [place] [address] Epithelial cells.squamous LM.HPF (Urine sed) [#/Area] 0-2 Normal 0-2 [facility] Comment on above: Performed By: #### 1 [id number] ####[facility] [address] [place] [address] Glucose Test strip (U) [Mass/Vol] Negative Normal Negative [facility] Comment on above: Performed By: #### 1 [id number] ####[facility] [address] [place] [address] Hemoglobin Ql (U) 2+ Abnormal Negative [facility] Comment on above: Performed By: #### 1 [id number] ####[facility] [address] [place] [address] Ketones (U) [Mass/Vol] Negative Normal Negative [facility] Comment on above: Performed By: #### 1 [id number] ####[facility] [address] [place] [address] Popejoy.plasma/Lit hium.RBC (Bld) [Mass ratio] 0-3 Normal 0-3 [facility] Comment on above: Performed By: #### 1 [id number] ####[facility] [address] [place] [address] Mucus Ql (Urine sed) TRACE Normal [facility] Comment on above: Performed By: #### 1 [id number] ####[facility] [address] [place] [address] Nitrite Ql (U) Positive Abnormal Negative [facility] Comment on above: Performed By: #### 1 [id number] ####[facility] [address] [address] pH (U) 6.0 [pH] Invalid Interpretation Code 5.0-9.0 [facility] Comment on above: Performed By: #### 1 [id number] ####[address] [address] Protein (U) [Mass/Vol] Negative Normal Negative [facility] Comment on above: Performed By: #### 1 [id number] ####[address] [address] Specific gravity (U) [Rel density] 1.010 Invalid Interpretation Code 1.005-1.030 [facility] Comment on above: Performed By: #### 1 [id number] ####[place] [id number] Type of Urine collection method Clean Catch Normal [facility] Comment on above: Performed By: #### 1 [id number] ####[place] [id number] Urobilinogen Qn (U) 0.2 {Catarino'U}/dL Normal 0.0-1.0 [facility] Comment on above: Performed By: #### 1 [id number] ####[place] [address] WBC Auto Ql (U) 1+ Abnormal Negative [facility] Comment on above: Performed By: #### 1 [id number] ####[address] [address] WBC LM.HPF (Urine sed) [#/Area] 26-30 Abnormal 0-5 [facility] Comment on above: Performed By: #### 1 [id number] ####[address] [address] Consent for Treatmenton 04-30 Consent for Treatment [id number]#1.00CD: 127 Normal [facility] Consent for Treatmenton Consent for Treatment [id number]#1.00CD: 127 Normal [facility] Heart and Vascular Office/Cl inic [...] 1 month. (more content not included)... Normal [facility] Comment on above: Result Comment: Elec tronically Signed By: Samuel VELAZQUEZ, Benjamin Le.br\Date and Time Signed: 05/05/23 16:11 EDT Physician Orderon 05-05-2023 Physician Order [id number]#1.00CD :127 Normal [facility] Stress EKG Tracingson 2022 Stress EKG Tracings [id number]#1.00CD: 127 Normal [facility] Consent for Treatmenton 03-31 Consent for Treatment [id number]#1.00CD: 127 Normal [facility] T3Free SerPl-mCncon 04-06-20 23 Free T3 [Mass/Vol] 3.3 pg/mL Normal 2.3-4.1 [facility] Comment on above: Order Comment: Speci men Type: BLOOD SPECIMEN Ordering Facility: [facility] Address: [address] [place] [address] Performed By: #### 3 051-0, 3024-7, 3016-3 #### [facility] CLIA [id number] [address] [place] T4 Free SerPl-mCncon 023 Free T4 [Mass/Vol] 1.4 ng/dL Normal 0.9-1.7 [facility] Comment on above: Order Comment: Specolivier florez Type: BLOOD SPECIMEN Ordering Facility: [facility] Address: [address] [place] [address] Performed By: #### 3 051-0, 3024-7, 3016-3 #### [facility] CLIA [id number] [address] [place] [address] OF SID THYROGLOBULIN ABon Thyroglobulin Ab Qn 1.8 [IU]/mL Normal <4.0 [facility] Comment on above: Order Comment: Rozina florez Type: BLOOD SPECIMEN Ordering Facility: [facility] Address: [address] [place] [address] Result Comment: The Thyroglobulin Antibody test was performed using the [employer] DXI paramagnetic particle chemiluminescent immunoassay method. Results obtained with different assay methods or kits cannot be used interchangeably. Performed By: #### T JASON #### [facility] CLIA [id number] [address] [place] [address] OF SID THYROID PEROXIDASE ANTIBODY BLOODon 04-06-2023 [place]n 4572.0 [IU]/mL High <5.6 [facility] Comment on above: Order Comment: Rozina florez Type: BLOOD SPECIMEN Ordering Facility: [facility] Address: [address] [place] [address] Result Comment: Thyr oid Peroxidase Antibody test is used as an aid in diagnosis of autoimmune thyroid disease. Clinical correlation is required. Performed By: #### M ICRO #### [facility] CLIA [id number] [address] [place] [address] [place] TSH SerPl-aCncon 04-06-2023 TSH Qn 6.050 m[IU]/L High 0.270-4.200 [facility] Comment on above: Order Comment: Rozina florez Type: BLOOD SPECIMENOrdering Facility: [facility] Address: [address] [place] [address] Result Comment: If t he patient is , TSH reference range varies by gestational period: First Trimester (weeks 9-12): 0.180-2.990 mIU/L Second Trimester: 0.110-3.980 mIU/L Third Trimester: 0.480-4.710 mIU/L Noe Ramon et al. A Practical Approach for the Verifications and Determination of Site- and Trimester-Specific Reference Intervals for Thyroid Function tests in . Thyroid, 2019:29:3:412-420. Gregor Banegas, et al. [address] Guidelines of the [place] Thy[employer] Association for the Diagnosis and Management of Thyroid Disease during and the . Thyroid, 2017:27:3:315-389. Performed By: #### 3 051-0, 3024-7, 3016-3 ####[facility] LABCLIA [id number] [place] [id number] [facility] CNOVon 03-08-2023 CNOV Office Visit (ENDOLN ) -------- EMMY DALE ([id number]) 1 F Date Time Provider Department 03/08/23 [...] within last 3 months? no HPI: Emmy Tristen Socorro is a 22 year old female who [...] Arthritis Father in blood . was at [facility] when baby thought to be related [...] involuntary motions. (more content not included)... Normal [facility] Vital Signs Date Time Vital Sign Value Performing Clinician Facility 08-27-2024 08:50-0400 Body weight 104.33 kg Ampere DO Work Phone: [facility] 08-27-2024 08:50-0400 Diastolic blood pressure 68 mm[Hg] [employer] Ajith DO Work Phone: [facility] 08-27-2024 08:50-0400 Systolic blood pressure 110 mm[Hg] Ampere DO Work Phone: [facility] 08-14-2024 09:36-0400 Body weight 101.61 kg Ampere DO Work Phone: [facility] 08-14-2024 09:36-0400 Diastolic blood pressure 70 mm[Hg] Ampere DO Work Phone: [facility] 08-14-2024 09:36-0400 Systolic blood pressure 120 mm[Hg] Dami Ajith DO Work Phone: [facility] 07-31-2024 08:55-0400 Body weight 99.34 kg Dami Ajith DO Work Phone: [facility] 07-31-2024 08:55-0400 Diastolic blood pressure 68 mm[Hg] Dami Ajith DO Work Phone: [facility] 07-31-2024 08:55-0400 Systolic blood pressure 112 mm[Hg] Dami Ajith DO Work Phone: [facility] 09-15-2023 13:30-0500 Body height 162.56 cm Lyndon [employer] Other [facility] Other 09-15-2023 13:30-0500 Body mass index (BMI) [Ratio] 30.21 kg/m2 Lyndon [employer] Other [facility] Other 09-15-2023 13:30-0500 Body weight 79.83 kg Lyndon [employer] Other [facility] Other 09-15-2023 13:30-0500 Diastolic blood pressure 68 mm[Hg] Lyndon [employer] Other [facility] Other 09-15-2023 13:30-0500 Respiratory rate 18 /min Lyndon [employer] Other [facility] Other 09-15-2023 13:30-0500 SaO2% (BldA) [Mass fraction] 99 % Lyndon [employer] Other [facility] Other 09-15-2023 13:30-0500 Systolic blood pressure 118 mm[Hg] Lyndon [employer] Other [facility] Other 07-12-2023 09:15-0400 Body height 162.56 cm Lyndon [employer] Other [facility] Other 07-12-2023 09:15-0400 Body mass index (BMI) [Ratio] 29.86 kg/m2 Lyndon [place] Other [facility] Other 07-12-2023 09:15-0400 Body temperature 98.6 [degF] Lyndon [employer] Other [facility] Other 07-12-2023 09:15-0400 Body weight 78.93 kg Lyndon [employer] Other [facility] Other 07-12-2023 09:15-0400 Diastolic blood pressure 70 mm[Hg] Lyndon Easterwood Other [facility] Other 07-12-2023 09:15-0400 Respiratory rate 20 /min Lyndon Easterwood Other [facility] Other 07-12-2023 09:15-0400 SaO2% (BldA) [Mass fraction] 98 % Lyndon Easterwood Other [facility] Other 07-12-2023 09:15-0400 Systolic blood pressure 112 mm[Hg] Lyndon Easterwood Other [facility] Other 05-25-2023 17:30-0400 Body height 162.56 cm Lyndon Easterwood Other [facility] Other 05-25-2023 17:30-0400 Body mass index (BMI) [Ratio] 30.04 kg/m2 Lyndon [place] Other [facility] Other 05-25-2023 17:30-0400 Body temperature 98.2 [degF] Lyndon [place]wood Other [facility] Other 05-25-2023 17:30-0400 Body weight 79.38 kg Lyndon Easterwood Other [facility] Other 05-25-2023 17:30-0400 Diastolic blood pressure 72 mm[Hg] Ylndon Easterwood Other [facility] Other 05-25-2023 17:30-0400 Respiratory rate 20 /min Lyndon Joseerwood Other [facility] Other 05-25-2023 17:30-0400 SaO2% (BldA) [Mass fraction] 99 % Lyndon Joseerwood Other [facility] Other 05-25-2023 17:30-0400 Systolic blood pressure 110 mm[Hg] Lyndon [place]wood Other [facility] Other 03-08-2023 16:13-0400 Body weight 83.92 kg Martina Rodriguez MD, PhD Work Phone: [facility] 03-08-2023 16:13-0400 Diastolic blood pressure 76 mm[Hg] Martina Rodriguez MD, PhD Work Phone: [facility] 03-08-2023 16:13-0400 Systolic blood pressure 116 mm[Hg] Martina Rodriguez MD, PhD Work Phone: [facility] 08-05-2022 16:00-0400 Body height 162.56 cm Lyndon Joseerwood Other [facility] Other 08-05-2022 16:00-0400 Body mass index (BMI) [Ratio] 32.78 kg/m2 Lyndon Dalal Other [facility] Other 08-05-2022 16:00-0400 Body temperature 98 [degF] Lyndon Dalal Other [facility] Other 08-05-2022 16:00-0400 Body weight 86.64 kg Lyndon Dalal Other [facility] Other 08-05-2022 16:00-0400 Diastolic blood pressure 76 mm[Hg] Lyndon Dalal Other [facility] Other 08-05-2022 16:00-0400 Respiratory rate 20 /min Lyndon Dalal Other [facility] Other 08-05-2022 16:00-0400 SaO2% (BldA) [Mass fraction] 99 % Lyndon Dalal Other [facility] Other 08-05-2022 16:00-0400 Systolic blood pressure 122 mm[Hg] Lyndon Dalal Other [facility] Other Encounters Encounter Date Encounter Type Care Provider Facility Start: 08-27-2024 End: 08-27-2024 flow sheet Dami Ajith DO Work Phone: [facility] Comment on above: Third trimester preg vanessa; 35 weeks gestation of Start: 08-27-2024 End: 08-27-2024 ambulatory DAMI AJITH Not Available Start: 08-14-2024 End: 08-14-2024 Bamboo flowsheet Dami [...] 07-23-2024 End: 07-23-2024 ambulatory Dami R AJITH Facility:[facility] Start: 07-19-2024 End: 07-19-2024 ambulatory LELE MELO Not Available Start: 07-05-2024 End: 07-05-2024 ambulatory DAMI AJITH Not Available Start: 06-25-2024 End: 06-25-2024 ambulatory DAMI AJITH Not Available Start: 06-25-2024 End: 06-25-2024 ambulatory LELE ALEJO Facility:[facility] Start: 06-12-2024 End: 06-12-2024 ambulatory DAMI R AJITH [facility] Start: 06-04-2024 End: 06-04-2024 ambulatory LELE MELO Not Available Start: 05-14-2024 End: 05-14-2024 ambulatory DAMI R AJITH [facility] Start: 05-08-2024 End: 05-08-2024 ambulatory DAMI AJITH Not Available Start: 04-09-2024 End: 04-09-2024 ambulatory DAMI AJITH Not Available Start: 04-04-2024 ambulatory Dami R AJITH Facility: [facility] Start: 03-12-2024 End: 03-12-2024 ambulatory DAMI AJITH Not Available Start: 02-24-2024 End: 02-24-2024 ambulatory DAMI AJITH Not Available Start: 12-04-2023 End: 12-04-2023 ambulatory Lyndon [employer] Other [facility] Other Start: 12-04-2023 Encounter by [employer] Lyndon Dalal [facility] Start: 11-05-2023 End: 11-05-2023 ambulatory Lyndon [employer] Other [facility] Other Start: 11-05-2023 Encounter by [employer] Lyndon Fallwood [facility] Start: 10-25-2023 End: 10-25-2023 ambulatory Lyndon John Dalal Facility:[facility] Start: 10-10-2023 End: 10-10-2023 ambulatory Lyndon [employer] Other [facility] Other Start: 10-10-2023 Telephone encounter Lyndon [place] Start: 09-26-2023 End: 09-26-2023 ambulatory Lyndon Joseerwood Other [facility] Other Start: 09-26-2023 Telephone encounter Lyndonjessica [place] [facility] Start: 09-18-2023 End: 09-18-2023 ambulatory Lyndon Joseerwood Other [facility] Other Start: 09-18-2023 Telephone encounter Lyndonjessica Garciaerwood [facility] Start: 09-15-2023 End: 09-15-2023 ambulatory LYNDON [facility] [employer] Other Start: 09-15-2023 Office outpatient visit 25 minutes Lyndon Joseerwood [facility] Start: 08-18-2023 End: 08-18-2023 ambulatory LYNDON [facility] Facility:[facility] Start: 08-05-2023 Get Medical Advice Martina Rodriguez MD, PhD Work Phone: Endocrinology Comment on above: lab orders Start: 07-22-2023 End: 07-22-2023 [facility] Other Start: 07-22-2023 [facility] [employer] Start: 07-12-2023 End: 07-12-2023 ambulatory Lyndon [facility] Other [facility] Other Start: 07-12-2023 Office outpatient visit 25 minutes Lyndon Joseerwood [facility] Start: 07-12-2023 Telephone encounter Lyndon Joseerwood [facility] Start: 07-08-2023 End: 07-08-2023 ambulatory SOBEIDA THOMPSON Facility:[facility] Start: 06-27-2023 End: 06-27-2023 ambulatory Lyndon Josewood Other [facility] Other Start: 06-27-2023 Telephone encounter Lyndon Joseerwood [facility] Start: 06-21-2023 End: 06-21-2023 ambulatory SOBEIDA THOMPSON Facility:[facility] Start: 06-01-2023 End: 06-01-2023 ambulatory Benjamin BAKER Facility:[facility] Start: 06-01-2023 End: 06-01-2023 ambulatory Bill Kat Facility:[facility] Start: 05-26-2023 End: 05-26-2023 [facility] Start: 05-25-2023 End: 05-25-2023 ambulatory LYNDON JOSEWOOD [facility] [employer] Other Start: 05-25-2023 Office outpatient visit 15 minutes Lyndon Joseelham [facility] Start: 05-17-2023 End: 05-17-2023 ambulatory Benjamin BAKER Facility:[facility] Start: 05-05-2023 End: 05-05-2023 ambulatory Benjamin BAKER Facility:[facility] Start: 04-15-2023 End: 04-15-2023 ambulatory Benjamin BAKER Facility:[facility] Start: 04-06-2023 End: 04-06-2023 ambulatory MARTINA RODRIGUEZ Facility:[facility] Start: 03-08-2023 End: 03-08-2023 ambulatory MARTINA RODRIGUEZ Facility:[facility] Start: 03-08-2023 End: 03-08-2023 Patient encounter procedure Martina Rodriguez MD, PhD Work Phone: Endocrinology Comment on above: Vikki's thyroidi tis (Primary Dx) Start: 02-28-2023 End: 02-28-2023 ambulatory Lyndon Yoselin Other [facility] Other Start: 02-28-2023 Telephone encounter Lyndon Joseelham [facility] Start: 02-21-2023 End: 02-21-2023 ambulatory [employer] [facility] Work Phone: [facility] Work Phone: Start: 02-21-2023 End: 02-21-2023 Discharged Recurring [employer] Lyndon Yoselin Work Phone: [facility] [employer] Work Phone: Start: 08-09-2022 End: 08-09-2022 ambulatory Lyndon Yoselin Other [facility] Other Start: 08-09-2022 Telephone encounter Lyndon Joseelham [facility] Start: 08-05-2022 End: 08-06-2022 Emergency department patient visit Lyndon Dalal Facility:[facility] Start: 08-05-2022 End: 08-05-2022 ambulatory Lyndon Dalal Other [facility] [employer] Other Start: 08-05-2022 Office outpatient visit 40 minutes Lyndon Dalal [facility] Procedures Date Procedure Procedure Detail Performing Clinician Start: 08-27-2024 Urnls dip stick/tabl et rgnt non-auto w/o micrscp Dami Ajith DO Work Phone: Start: 08-14-2024 Urnls dip stick/tabl et rgnt non-auto w/o micrscp Dami Ajith DO Work Phone: Start: 07-31-2024 Urnls dip stick/tabl et rgnt non-auto w/o micrscp Dami Ajith DO Work Phone: Plan of Treatment Date Care Activity Detail Author Start: 09-17-2024 End: 09-17-2024 Patient encounter procedure 09/17/2024 8:40 AM EST Routine [facility] [address] [place] [id number] Dami Canseco, DO [address] [place] [address] [facility] Start: 09-10-2024 End: 09-10-2024 Patient encounter procedure 09/10/2024 8:40 AM EST Routine [facility] [address] [place] [address] Dami Canseco, DO [address] [place] [address] [facility] Start: 09-03-2024 End: 09-03-2024 Patient encounter procedure 09/03/2024 8:40 AM EST Routine [facility] [address] [place] [address] Dami Canseco, DO [address] [place] [address] [facility] Start: 08-27-2024 End: 08-27-2024 Patient encounter procedure 08/27/2024 8:40 AM EDT Routine [facility] [address] [place] [phone] Dami Canseco, DO [address] [place] [address] [facility] Start: 08-14-2024 End: 08-14-2024 Patient encounter procedure [facility] Comment on above: Arrived Start: 08-06-2024 End: 08-06-2024 Professional / ancillary services management 08/06/2024 8:00 AM EDT Ancillary Procedure [facility] [address] [facility] [place] [address] [facility] Start: 07-31-2024 End: 07-31-2024 Patient encounter procedure 07/31/2024 8:50 AM EDT Routine [facility] [address] [place] [address] Dami Canseco, DO [address] [place] [address] Arrived [facility] Comment on above: Arrived Start: 07-01-2024 Influenza vaccination Influenza Vacc ine (#1) [facility] Start: 08-08-2023 End: 10-08-2023 Thyrotropin [Units/volume] in Serum or Plasma TSH BLD Lab Routine Vikki's thyroiditis Expected: 08/08/2023, Expires: 10/08/2023 [facility] Work Phone: Comment on above: Expected: 08/08/2023 , Expires: 10/08/2023 Start: 08-08-2023 End: 10-08-2023 Thyroxine (T4) free [Mass/volume] in Serum or Plasma T4 FREE/FREE THYROX Lab Routine Vikki's thyroiditis Expected: 08/08/2023, Expires: 10/08/2023 [facility] Work Phone: Comment on above: Expected: 08/08/2023 , Expires: 10/08/2023 Start: 07-07-2023 Urine microalbumin profile [facility] Start: 07-01-2023 Covid-19 Vaccine () Covid-19 Vaccine () [facility] Start: 07-01-2023 Influenza vaccination Influenza Vacc ine (#1) [facility] Start: 03-31-2023 End: 05-31-2023 Thyroglobulin Ab [Units/volume] in Serum or Plasma THYROGLOBULIN AB Lab Routine Vikki's thyroiditis Expected: 03/31/2023, Expires: 05/31/2023 [facility] Work Phone: Comment on above: Expected: 03/31/2023 , Expires: 05/31/2023 Start: 03-31-2023 End: 05-31-2023 THYROID PEROXIDASE ANTIBODY BLOOD THYROID PEROXIDASE ANTIBODY BLOOD Lab Routine Vikki's thyroiditis Expected: 03/31/2023, Expires: 05/31/2023 [facility] Work Phone: Comment on above: Expected: 03/31/2023 , Expires: 05/31/2023 Start: 03-31-2023 End: 05-31-2023 Thyrotropin [Units/volume] in Serum or Plasma TSH BLD Lab Routine Vikki's thyroiditis Expected: 03/31/2023, Expires: 05/31/2023 [facility] Work Phone: Comment on above: Expected: 03/31/2023 , Expires: 05/31/2023 Start: 03-31-2023 End: 05-31-2023 Thyroxine (T4) free [Mass/volume] in Serum or Plasma T4 FREE/FREE THYROX Lab Routine Vikki's thyroiditis Expected: 03/31/2023, Expires: 05/31/2023 [facility] Work Phone: Comment on above: Expected: 03/31/2023 , Expires: 05/31/2023 Start: 03-31-2023 End: 05-31-2023 Triiodothyronine (T3) Free [Mass/volume] in Serum or Plasma T3 FREE BLD Lab Routine Vikki's thyroiditis Expected: 03/31/2023, Expires: 05/31/2023 [facility] Work Phone: Comment on above: Expected: 03/31/2023 , Expires: 05/31/2023 Start: 10-31-2022 DEPRESSION ASSESSMENT DEPRESSION ASS ESSMENT [facility] Start: 2021 PAP TESTING PAP TESTING [facility] Start: 02-02-2021 COVID-19 VACCINE (3 - Booster for Pfizer series) COVID-19 VACCINE (3 - Booster for Pfizer series) [facility] Start: 2018 CHLAMYDIA SCREENING (18-24) CHLAMYDIA SCREENING (18-24) [facility] Start: 2018 GC (GONORRHEA) SCREE MICHELLE (18-24) GC (GONORRHEA) SCREENING (18-24) [facility] Start: 2018 HEPATITIS C SCREENING HEPATITIS C SC REENING [facility] Start: 2018 HIV SCREENING HIV SCREENING [facility] Start: 2016 Meningococcal B Vacc ine: Consider Based On Risk (2 of 2 - Risk Bexsero 2-dose series) Meningococcal B Vaccine: Consider Based On Risk (2 of 2 - Risk Bexsero 2-dose series) [facility] Start: 2016 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 (2 of 2 - Risk Bexsero 2-dose series) MENINGOCOCCAL B: Consider based on risk (2 of 2 - Risk Bexsero 2-dose series) [facility] Start: 2014 PEDS TO ADULT TRANSI TION ANNUAL ASSESSMENT PEDS TO ADULT TRANSITION ANNUAL ASSESSMENT [facility] Start: 2012 PEDS TO ADULT TRANSI TION INITIAL DISCUSSION PEDS TO ADULT TRANSITION INITIAL DISCUSSION [facility] Immunizations Immunization Date Immunization Notes Care Provider Milady lewis 07-19-2022 influenza, injectabl e, quadrivalent, contains preservative Lyndon [place]wood Other [facility] Other 07-19-2022 influenza virus vaccine, unspecified formulation Martina Rodriguez MD, PhD Work Phone: [facility] 12-08-2020 Do not use COVID-19 Pfizer 2 dose Lyndon Easterwood Other [facility] Other 11-17-2020 Do not use COVID-19 Pfizer 2 dose Lyndon [place]wood Other [facility] Other 07-31-2020 influenza, injectabl e, quadrivalent, contains preservative Lyndon [place] Other [facility] Other 10-18-2016 influenza, injectabl e, quadrivalent, contains preservative Martina Rodriguez MD, PhD Work Phone: [facility] 08-04-2015 influenza, injectabl e, quadrivalent, contains preservative Martina Rodriguez MD, PhD Work Phone: [facility] 04-23-2014 human papilloma viru s vaccine, quadrivalent Martina Rodriguez MD, PhD Work Phone: [facility] 09-29-2013 human papilloma viru s vaccine, quadrivalent Martina Rodriguez MD, PhD Work Phone: [facility] 07-07-2013 human papilloma viru s vaccine, quadrivalent Martina Rodriguez MD, PhD Work Phone: [facility] 07-07-2013 meningococcal polysaccharide (groups A, C, Y and W-135) diphtheria toxoid conjugate vaccine (MCV4P) Martina Rodriguez MD, PhD Work Phone: [facility] Work Phone: 07-07-2013 tetanus toxoid, redu ollie diphtheria toxoid, and acellular pertussis vaccine, adsorbed Martina Rodriguez MD, PhD Work Phone: [facility] 08-04-2009 influenza virus vaccine, unspecified formulation Martina Rodriguez MD, PhD Work Phone: [facility] 07-05-2008 hepatitis A vaccine, unspecified formulation Martina Rodriguez MD, PhD Work Phone: [facility] 09-09-2007 influenza virus vaccine, unspecified formulation Martina Rodriguez MD, PhD Work Phone: [facility] Work Phone: 06-19-2007 hepatitis A vaccine, unspecified formulation Martina Rodriguez MD, PhD Work Phone: [facility] 06-19-2007 varicella virus vaccine Parth Rodriguez MD, PhD Work Phone: [facility] 09-14-2006 influenza virus vaccine, unspecified formulation Martina Rodriguez MD, PhD Work Phone: [facility] 05-13-2006 diphtheria, tetanus toxoids and acellular pertussis vaccine Martina Rodriguez MD, PhD Work Phone: [facility] Work Phone: 05-13-2006 measles, mumps and rubella virus vaccine Martina Rodriguez MD, PhD Work Phone: [facility] Work Phone: 05-13-2006 poliovirus vaccine, inactivated Martina Rodriguez MD, PhD Work Phone: [facility] Work Phone: 05-13-2006 varicella virus vaccine Parth Rodriguez MD, PhD Work Phone: [facility] Work Phone: 07-26-2005 influenza virus vaccine, unspecified formulation Martina Rodriguez MD, PhD Work Phone: [facility] Work Phone: 07-30-2004 influenza virus vaccine, unspecified formulation Martina Rodriguez MD, PhD Work Phone: [facility] Work Phone: 06-30-2002 diphtheria, tetanus toxoids and acellular pertussis vaccine Martina Rodriguez MD, PhD Work Phone: [facility] Work Phone: 06-30-2002 poliovirus vaccine, inactivated Martina Rodriguez MD, PhD Work Phone: [facility] Work Phone: 04-04-2002 haemophilus influenz ae type b vaccine, HbOC conjugate Martina Rodriguez MD, PhD Work Phone: [facility] Work Phone: 04-04-2002 measles, mumps and rubella virus vaccine Martina Rodriguez MD, PhD Work Phone: [facility] Work Phone: 12-16-2001 hepatitis B vaccine, pediatric or pediatric/adolescent dosage Martina Rodriguez MD, PhD Work Phone: [facility] Work Phone: 12-16-2001 pneumococcal conjuga te vaccine, 7 valent Martina Rodriguez MD, PhD Work Phone: [facility] Work Phone: 09-30-2001 pneumococcal conjuga te vaccine, Shaq valdenny Rodriguez MD, PhD Work Phone: [facility] Work Phone: 06-24-2001 diphtheria, tetanus toxoids and acellular pertussis vaccine Martina Rodriguez MD, PhD Work Phone: [facility] Work Phone: 06-24-2001 haemophilus influenz ae type b vaccine, HbOC conjugate Martina Rodriguez MD, PhD Work Phone: [facility] Work Phone: 06-24-2001 pneumococcal conjuga te vaccine, Shaq valdenny Rodriguez MD, PhD Work Phone: [facility] Work Phone: 04-12-2001 diphtheria, tetanus toxoids and acellular pertussis vaccine Martina Rodriguez MD, PhD Work Phone: [facility] Work Phone: 04-12-2001 haemophilus influenz ae type b vaccine, HbOC conjugate Martina Rodriguez MD, PhD Work Phone: [facility] Work Phone: 04-12-2001 poliovirus vaccine, inactivated Martina Rodriguez MD, PhD Work Phone: [facility] Work Phone: 02-03-2001 diphtheria, tetanus toxoids and acellular pertussis vaccine Martina Rodriguez MD, PhD Work Phone: [facility] Work Phone: 02-03-2001 haemophilus influenz ae type b vaccine, HbOC conjugate Martina Rodriguez MD, PhD Work Phone: [facility] Work Phone: 02-03-2001 poliovirus vaccine, inactivated Martina Rodriguez MD, PhD Work Phone: [facility] Work Phone: 2000 hepatitis B vaccine, pediatric or pediatric/adolescent dosage Martina Rodriguez MD, PhD Work Phone: [facility] Work Phone: 2000 hepatitis B vaccine, pediatric or pediatric/adolescent dosage Martina Rodriguez MD, PhD Work Phone: [facility] Work Phone: Payers Date Payer Category Payer Private Health Insurance [id number] 2024 Unknown [id number] 2023 Unknown [id number] 2022 Private Health Insurance [id number] 2022 Self-pay 2020 Private Health Insurance [id number] 2020 Private Health Insurance [id number]. [id number] 2000 Unknown [id number] .16.840.1.067198.3.579.2.7 2000 Unknown [id number] 2.16.840.1.441842.3.579.2. 2000 Unknown [id number] 2.16.840.1.539932.3.579.2.7 2000 Unknown [id number] 2.16.840.1.860292.3.579.2 2000 Unknown [id number] 2.16.840.1.513108.3.579.2. 2000 Unknown [id number] 2.16.840.1.009424.3.579.2 2000 Unknown [id number] 2.16840.1.680689.3.579.2 2000 Unknown [id number] 2.16840.1.748337.3.579.2 2000 Unknown [id number] 2.16840.1.951479.3.579.2 2000 Unknown [id number] 2.16840.1.161469.3.579.2 2000 Unknown [id number] 2.16840.1.633034.3.579.2 2000 Unknown [id number] 2.16840.1.601584.3.579.2.1285 2000 Unknown [id number] 2.16.840.1.509941.3.579.2.1285 2000 Unknown [id number] 2.16.840.1.396144.3.579.2.1285 2000 Unknown [id number] 2.16.840.1.028342.3.579.2. 2000 Unknown [id number] 2.16840.1.994700.3.579.2 2000 Unknown [id number] 2.16.840.1.086932.3.579.2.9 2000 Unknown [id number] 2.16.840.1.367954.3.579.2.9 2000 Unknown [id number] 2.16.840.1.278110.3.579.2.9 2000 Unknown [id number] 2.16.840.1.390981.3.579.2.1258 2000 Unknown [id number] 2.16.840.1.478933.3.579.2.1258 2000 Unknown [id number] 2.16.840.1.824019.3.579.2.1258 2000 Unknown [id number] 2.16.840.1.367593.3.579.2.1258 2000 Unknown [id number] 2.16.840.1.831406.3.579.2.1258 2000 Unknown [id number] 2.16.840.1.002001.3.579.2.1258 2000 Unknown [id number] 2.16.840.1.578254.3.579.2.1258 2000 Unknown [id number] 2.16.840.1.858382.3.579.2.1259 Private Health Insurance [facility] [id number] Unknown [id number] 2.16.840.1.236987.3.579.2.531 Unknown [facility] Employees [id number] Unknown [id number] 2.16.840.1.854079.3.579.2.531 Social History Date Type Detail Facility Start: 03-08-2023 End: 07-05-2024 Sex Assigned At [facility] [employer] Other Start: 09-27-2014 End: 07-05-2024 Tobacco smoking status NHIS Never smoked tobacco [facility] History of tobacco use Passive smoker [facility] Start: 03-08-2023 [facility] intake [facility] Start: 2000 Sex Assigned At Not on file [facility] Start: 2000 Sex Assigned At Female F [facility] Start: 03-08-2023 End: 07-05-2024 History of Social function [facility] Start: 07-05-2024 Tobacco use and exposure Smokeless tobacco non-user [facility] Start: 07-19-2024 End: 08-27-2024 Alcoholic beverage intake Ex-drinker (finding) [facility] Start: 01-06-2024 [facility] Malgorzatat pamela Clinical Notes 09-09-2009 to 08-27-2024 Rhoda Ortiz, DRAMATIC TEACHER - 08/27/2024 8:40 AM EDTMar Ortega, [facility] - 08/14/2024 8:40 AM NIDIA Stephens - 07/31/2024 8:50 AM EDT Note Date & Type Note Facility 08-27-2024 History of Presen t illness Narrative Reason [...] 4 mg, Oral, Every 6 hours PRN Fetsvxni-Lfp-Ja-FA ( 1 + IRON PO) ALLERGIES Allergies Allergen Reactions Sulfa Antibiotics Hives and Rash Other Reaction(s): Unknown Other Reaction(s): Rash PROBLEMS Active Ambulatory Problems Diagnosis Date Noted JEFF (amniotic fluid index) borderline low 07/05/2024 27 weeks gestation of 07/05/2024 Resolved Ambulatory Problems Diagnosis Date Noted No Resolved Ambulatory Problems Past Medical History: Diagnosis Date Asthma (CMS/HCC) As a child 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 OBJECTIVE Objective: Physical Exam Constitutional: Appearance: Normal [...] nursing note reviewed. Exam conducted with a metallurgical specialist present. Vitals: There is no height or weight on file to calculate BMI. BP: 110/68 Patient's last menstrual period was 12/23/2023. ASSESSMENT & PLAN ICD-10-CM 1. Third trimester Z34.93 2. 35 weeks gestation of Z3A.35 POCT urinalysis dipstick manually resulted Patient presents today for a routine obstetrics appointment. Patient is currently 35w3d with a Estimated Date of Delivery: 09/28/24. Discussed growth scan with patient and patient will have IOL 09/14/24 due to IUGR. Patient to return to clinic in 1 week for GBS cultures. Patient had questions in regards to Epidural and low blood pressure. Patient given reassurance and that she will be able to have Epidural. Patient aware that she needs to decrease Thyroid medication down to 25mcg after . Patient also voiced that she is having left ovary/round ligament pain. Documented by Rohda Ortiz LPN on behalf of: Dami Canseco DO documented in this encounter [facility] 08-14-2024 History of Presen t illness Narrative [...] 4 mg, Oral, Every 6 hours PRN Fhrtkucn-Qeb-Fg-FA ( 1 + IRON PO) ALLERGIES Allergies [...] nursing note reviewed. Exam conducted with a metallurgical specialist present. Vitals: There is no height or [...] Dami Canseco DO documented in this encounter [facility] 07-31-2024 History of Presen [...] 4 mg, Oral, Every 6 hours PRN Qtwjbtql-Dvz-Cp-FA ( 1 + IRON PO) ALLERGIES Allergies [...] Dami Canseco DO documented in this encounter [facility] 09-15-2023 Evaluation note Encounter [...] in office today for physical therapy to [facility]. Discussed continuation of dcuv-axn-snwnxxt medications as needed. Take muscle relaxer as [...] in office today for physical therapy to [place] location through [facility]. Discussed continuation of lcwj-hnx-edfpvgm medications as needed. Take muscle relaxer as [...] that were not corrected during review process. [facility] Other 09-12-2023 Evaluation note* Encounter Date Diagnosis [...] that were not corrected during review process. [facility] Other 07-26-2023 Evaluation note* Encounter Date Diagnosis [...] that were not corrected during review process. [facility] Other 06-18-2023 NoteEchocardiology Procedure Exam Date/Time Accession # Ordering ECG Stress Exercise 04/15/2023 08:43 EDT [id number] Benjamin Baker MD CPT code 76160 Reason for Exam (ECG Stress Exercise) I95.1;Dizziness [...] Baker MD Transcribed by: jamie Technologist: [facility]06-16-2023 Note Echocardiology Procedure Exam Date/Time Accession # Ordering Echo Transthoracic 04/15/2023 09:42 EDT [id number] Benjamin Baker MD Complete CPT code 40828 97505 Reason for Exam (Echo Transthoracic Complete) I95.9;Hypotension Report [facility] [address] [place] [address] Adult Echocardiogram Report Name: EMMY DALE Study Date: 04/15/2023 09:02 AM BP: 105/71 mmHg Patient Location: [facility] HR: 75 : 2000 Gender: Female Height: 63 in Age: 22 yrs Ethnicity: T Weight: 178 lb Reason For Study: Hypotension BSA: 1.8 m2 History: No cardiac history per patient Ordering Physician: Samuel^Benjamin^John Referring Physician: Benjamin Baker Performed By: Jonelle Alvarez, [facility] Interpretation Summary Ejection Fraction = [...] Benjamin Baker MD Transcribed by: YOVANI Technologist: [facility]05-09-2023 Note HNO ID: [id number] Author: Martina Rodriguez MD, PhD Service: ? [...] Arthritis Father in blood . was at [facility] when baby thought to be related [...] Plan: Will monitor thyroid (more content not included)...[facility] 03-08-2023 History of Present illness Narrative* Martina [...] Arthritis Father in blood . was at [facility] when baby thought to be related [...] AB Follow up in 6 months Martina Rdoriguez MD, PhD [facility] note* Encounter Date Diagnosis [...] I would recommend referral to a different manufacturing engineer chief. Patient does have the name of an manufacturing engineer chief that she would like referred to. We will put that referral in today. Dr. Roger Kim - [facility] Endocrinology, [facility] February, Dizziness (ICD-10 - R42) [...] that were not corrected during review process. [facility] Other 10-06-2022 Evaluation note* Encounter Date Diagnosis [...] to ER, I highly recommend she call LOAD OUT PERSON the second she leaves our office to follow-up.She needs to let them know about her concerns.I explained to her that even though she may assume that her LOAD OUT PERSON will not listen her , I still want her to reach out to that office and explained to them her current concerns. She wants to know what the immediate treatment would be and work-up for spinal headache and possible leak however I cannot provide her with this information as I am not LOAD OUT PERSON. Jul, Hip pain (ICD-10 - M25.559) While [...] I did discuss with her concerns over sjih-iam-nopwabi medications during breast-feeding. Discussed recommendations currently and please bring this up to LOAD OUT PERSON as well for further recommendations. Does not [...] I would like her to follow-up with LOAD OUT PERSON or go to ER regarding this dizziness and we can follow-up in office after. If nothing comes from an LOAD OUT PERSON/spinal headache/spinal leak standpoint, we can order CT [...] that were not corrected during review process. [facility] [employer] Other 11-10-2009 History of Past illness Narrative* Problem Noted Date Resolved Date Constipation 09/09/2009 08/28/2014 documented as of this encounter (statuses as of 03/09/2023) [facility]11-10-2009 History of Past illness Narrative* Problem Noted Date Diagnosed Date Resolved Date Constipation 09/09/2009 08/28/2014 documented as of this encounter (statuses as of 08/09/2023) [facility] noteNo InformationNort [employer] Other Evaluation note* Diagnosis Vikki's thyroiditis- Primary Chronic lymphocytic thyroiditis [facility] noteNo assessment information available[facility] Work Phone: Evaluation note* Diagnosis Vikki's thyroiditis- Primary Chronic lymphocytic thyroiditis [facility]* Diagnosis 31 weeks gestation of Third trimester state, incidental [facility]* Diagnosis 33 weeks gestation of Third trimester state, incidental documented [facility]* Diagnosis Third trimester state, incidental 35 weeks gestation of documented in this encounter [facility] HealthcareHistory general Narrative - Reported* Type Description Date Medical History Asthma Medical History Vasovagal syndrome- childhood (r esolved) Medical History Exercise-induced asthma Medical History Pityriasis rosea Medical History Tachycardia Medical History Vikki's thyroiditis Medical History Pre-eclampsia Surgical History [place] teeth extract 2017 Surgical History Vaginal childbirth 03/2022 Hospitalization History See surgical [facility] Other History general Narrative - Reported* Type Description Date Medical History Exercise-induced asthma Medical History Pityriasis rosea Medical History Tachycardia Medical History Vikki's thyroiditis Medical History Asthma Medical History Pre-eclampsia Medical History Hypotension Surgical History [place] teeth extract 2016 Surgical History Vaginal childbirth 03/2022 Hospitalization History See surgical [facility] Other History general Narrative - Reported* Type Description Date Medical History Exercise-induced asthma Medical History Pityriasis rosea Medical History Tachycardia Medical History Vikki's thyroiditis Medical History Asthma Medical History Pre-eclampsia Medical History Hypotension Medical History GERD (gastroesophageal reflux di sease) Surgical History [place] teeth extract 2016 Surgical History Vaginal childbirth 03/2022 Surgical History EGD/colonoscopy 2011 Hospitalization History See surgical [facility] Other [facility] general Narrative - Reported* Type Description Date Medical History Exercise-induced asthma Medical History Pityriasis rosea Medical History Tachycardia Medical History Vikki's thyroiditis Medical History Asthma Medical History Pre-eclampsia Medical History Hypotension Medical History GERD (gastroesophageal reflux di sease) Medical History Thyromegaly Surgical History [place] teeth extract 2016 Surgical History Vaginal childbirth 03/2022 Surgical History EGD/colonoscopy 2012 Hospitalization History See surgical [facility] Other [facility] general Narrative - Reported* Type Description Date Medical History Exercise-induced asthma Medical History Pityriasis rosea Medical History Tachycardia Medical History Vikki's thyroiditis Medical History Asthma Medical History Pre-eclampsia Medical History Hypotension Medical History GERD (gastroesophageal reflux di sease) Medical History Thyromegaly Medical History Other idiopathic scoliosis, thor acic region Surgical History [place] teeth extract 2016 Surgical History Vaginal childbirth 03/2022 Surgical History EGD/colonoscopy 2011 Hospitalization History See surgical [facility] Other Summary Purpose Family History No Family [...] gastriti s with hemorrhage (K29.01) Referral Organization [facility] [employer] Referring Provider First Name Lyndon Referring Provider Last Name [facility] Referring Provider Specialty Nurse Pract itioner Referred Organization [facility] Gastroenterolo gy Referred Provider Patricio Urena Referred Address [address] [facility],[address],[address] Referred Provider Specialty Gastroentero logy Referral Priority Routine General Notes [facility] 023 10:08:56 AM >Received today. [facility] request us to fill out their form and fax to them. They will review the referral and call patient to schedule them. [facility] was fax. [facility] 07[facility]12/2023 01:31:38 PM >Per telephone encounter, patient wants to try [facility] Gastro doctors. Sent P2P Reason *03/08 Dr. Hawa Kim - [facility] Endocrinology, [facility]; [employer]- please send this note with 2 previous notes Diagnosis 1 Vikki's thyroidi tis (E06.3) Referral Organization [facility] [employer] [place] Referring Provider First Name Lyndon Referring Provider Last Name [facility] Referring Provider Specialty Nurse Pract itioner Referred Organization [facility] Referred Address [address] [place], [place],[address] Referred Provider Specialty Endocrinolog y Referral Priority Routine General Notes [facility] 023 01:21:05 PM >Received today and referral was fax with the [facility] Form. They will review and call patient to schedule Reason *03/08 Dizzines s- [place]; Please send this note with 2 previous notes Diagnosis 1 Dizziness (R42) Referral Organization [facility] [employer] [place] Referring Provider First Name Lyndon Referring Provider Last Name [facility] Referring Provider Specialty Nurse Alfred barron Referred Organization [facility] Referred Provider AlbertoJose Referred Address [address] [place], [place],[address] Referred Provider Specialty Neurology Referral Priority Routine [...] section and content) DATE CREATED AUTHOR 08/06/2022 Pike [facility] DATE CREATED AUTHOR AUTHOR'S ORGANIZ ATION 08/20/2023 [facility] DATE CREATED AUTHOR AUTHOR'S ORGANIZ ATION 04/06/2024 [facility] DATE CREATED AUTHOR AUTHOR'S ORGANIZ ATION 05/03/2024 [facility] DATE CREATED AUTHOR AUTHOR'S ORGANIZ ATION 05/18/2024 [facility] DATE CREATED AUTHOR AUTHOR'S ORGANIZ ATION 06/14/2024 [facility] DATE CREATED AUTHOR AUTHOR'S ORGANIZ ATION 06/26/2024 [facility] DATE CREATED AUTHOR AUTHOR'S ORGANIZ ATION 07/07/2024 [facility] DATE CREATED AUTHOR AUTHOR'S ORGANIZ ATION 07/24/2024 [facility] DATE CREATED AUTHOR AUTHOR'S ORGANIZ ATION 07/29/2024 [facility] DATE CREATED AUTHOR AUTHOR'S ORGANIZ ATION 08/21/2024 [facility] DATE CREATED AUTHOR AUTHOR'S ORGANIZ ATION 08/27/2024 [facility] EPIC REASON FOR VISIT (unrecogniz [...] or prosecute any alcohol or drug abuse patient.[facility] the event this information is protected by the Federal Confidentiality of Alcohol and Drug Abuse Patient Records regulations: The Federal rules restrict any use of the information to criminally investigate or prosecute any alcohol or drug abuse patient.[facility] Care Teams (unrecognized sec tion and content) State Epidemiologist Relationship Specialty Start Date End Date Lyndon Dalal CNP [address] [id number] PCP - General Family Medicine 03/08/23 Lyndon Dalal CNP [address] [address] Referring Family Medicine 03/04/23 Team Status: Active Member Role Status Dates Lyndon Dalal APRN Primary Care Provider Active Team Status: Inactive Member Role Status Dates Lyndon Dalal APRN Primary Care Provider, Attend ing Provider Active State Epidemiologist Relationship Specialty Start Date End Date Lyndon Dalal CNP [address] [facility] [place] [address] PCP - General Family Medicine 03/08/23 Lyndon Dalal CNP [address] [address] Referring Family Medicine 03/04/23 State Epidemiologist Relationship Specialty Start Date End Date Ge Cloud MD [address] [phone] PCP - General Family Medicine 01/25/24 State Epidemiologist Relationship Specialty Start Date End Date Ge Cloud MD [address] [phone] PCP - General [facility] 01/25/24 State Epidemiologist Relationship Specialty Start Date End Date Ge Cloud MD [address] [phone] PCP - General Family [facility] 01/25/24 Goals (unrecognized section and content) Goals [...] BE BASED ON THE PRIMARY CLINICAL RECORDS. [facility] [employer] [facility]. provides no warranty or guarantee of the accuracy or completeness of information in this document.
[2024-08-29 18:01] VITALS: BP 116/61; PULSE 88
== END 2024-08-29 18:27 | disposition home or self-care (01) ==
LOC: FBCO 07:19 → FBC 17:55
PROVIDERS: PCP Family Medicine; Visit Provider Obstetrics & Gynecology
DX: O99.283 Endocrine, nutritional and metabolic diseases complicating pregnancy, third trimester (principal); Z3A.35 35 weeks gestation of pregnancy
CPT/HCPCS: 59025

== ENCOUNTER 2024-09-01 07:43 | Outpatient (OUT) | payer OTHER, SELFPAY ==
--- OUTSIDE RECORDS SUMMARY | 2024-09-01 07:46 | XMS_ITS | CCD ---
Author Organization [facility] Care Team Providers Care Risk Specialist Name Role Phone Lyndon Dalal Primary Care Unavailable Juancarlos Maria Attending Unavailable Juancarlos Maria Admitting Unavailable Yoselin, Lyndon Unavailable Dallas Dalal CNPa Unavailable Lyndon Dalal CNP Primary Care Provider [phone] ANKIT Dalal Primary Care Provider ANKIT Dalal Attending Provider [phone] YOSELIN, LYNDON Primary Care Unavailable MARTINA RODRIGUEZ [...] Unavailable AJITH, Dami R Admitting Unavailable AJITH, Admi R Attending Unavailable Pedro Luis VELAZQUEZ, [place] Primary Care Provider [phone] AJITH, DAMI Attending Unavailable AJITH, DAMI Attending Unavailable AJITH, DAMI Attending Unavailable MELO, LELE Attending Unavailable AJITH, DAMI Attending Unavailable AJITH, DAMI Attending Unavailable MELO, LELE Attending Unavailable AJITH, DAMI Attending Unavailable AJITH, DAMI Attending Unavailable AJITH, DAMI Attending Unavailable Allergies Allergy Classification Reported Allergen(s) Allergy Type Date of Onset Reaction(s) Facility Sulfonamides (antibiotic) (1 source) Sulfonamides (Antibiotic); Translations: [sulfa drugs] Drug Allergy [facility] Repository (6 sources) Sulfonamides (Antibiotic); Translations: [SULFA (SULFONAMIDE ANTIBIOTICS)] Drug allergy (disorder) 5 [facility] Repository (2 sources) Sulfonamide Drug allergy [facility] Other (20 sources) Substance with sulfonamide structure and antibacterial mechanism of action (substance) Drug allergy 5 [facility] (3 sources) Sulfonamides (Antibiotic); Translations: [sulfa drugs] Propensity to adverse reactions (disorder) [facility] Repository Medications Current Medications Medication Drug [...] a day for 5 days Aug, Active Guiyhfbs-Ryz-Km-FA ( 1 + IRON PO) (8 sources) Start: Ggplywxe-Eun-Su-FA ( 1 + IRON PO) 01/20/2024 Active [...] by fredi th every twenty-four hours Biotin 65445 MCG 1 tablet Orally Once a day OTC Not-Taking/PRN take 1 tablet by fredi th every twenty-four hours Biotin 62419 MCG 1 tablet Orally Once a day OTC Not-Taking take 1 tablet by mouth once [facility]ia del carmen y Biotin 94609 MCG 1 tablet Orally Once a day OTC Not-Taking BIOTIN ORAL Take by mouth q 24 HR. 0 Active take 1 tablet by mouth once [place] y Biotin 24557 MCG 1 tablet Orally Once a day [...] Comment on above: Take 1 tablet by [facility] once daily. Iodine (14 sources) Iodine [...] Probiotic OTC, daily Active lactobacillus rhamnosus gg [id number] unt oral capsule (1 source) Start: 5 End: 3 take 1 capsule by mouth once daily lactobacillus rhamnosus (CULTURELLE) 10 billion cell capsule Indications: Abdominal pain Take 1 capsule by mouth once daily. 30 capsule 2 04/30/2015 03/08/2023 Discontinued Comment on above: Take 1 capsule by mo [facility] once daily. Moringa (14 sources) Moringa 6000MG, [...] UA Negative Negative - 4(70) +++ mg/dL [facility] Blood, UA Negative Negative - 50 Juanito/mcL [facility] Clarity, UA Clear [facility] Color, UA Yellow [facility] Glucose, UA Negative Negative - 2000(110) ++++ mg/dL [facility] Interpretation and review of laboratory results Abnormal [facility] Ketones, UA Negative Negative - 160(16) ++++ mg/dL [facility] Leukocytes, UA Trace Negative - 500+++ Ken/mcL [facility] Nitrite, UA Negative Negative - Positive [facility] pH, UA 6.5 5 - 9 [facility] Protein, UA Negative Negative - 2000(20) ++++ mg/dL [facility] Spec Grav, UA 1.015 1 - 1.03 [facility] Urobilinogen, UA 0.2 0.2 - 12 mg/dL [facility] TSHon 08-20-2024 TSH Qn 1.87 m[IU]/L Normal 0.34-5.60 [facility] Comment on above: Performed By: #### 2 [id number] #### [facility] [address] [place] [address] Urinalysis macro (dipstick) panel (U)on 08-14-2024 Bilirubin, UA Negative Negative - 4(70) +++ mg/dL [facility] Blood, UA Negative Negative - 50 Juanito/mcL [facility] Clarity, UA Clear [facility] Color, UA Yellow [facility] Glucose, UA Negative Negative - 1999(110) ++++ mg/dL [facility] Interpretation and review of laboratory results Abnormal [facility] Ketones, UA Negative Negative - 160(16) ++++ mg/dL [facility] Leukocytes, UA Trace Negative - 500+++ Ken/mcL [facility] Nitrite, UA Negative Negative - Positive [facility] pH, UA 6.5 5 - 9 [facility] Protein, UA Negative Negative - 1999(20) ++++ mg/dL [facility] Spec Grav, UA 1.015 1 - 1.03 [facility] Urobilinogen, UA 0.2 0.2 - 12 mg/dL [facility] Urinalysis macro (dipstick) panel (U)on 07-31-2024 Bilirubin, UA Negative Negative - 4(70) +++ mg/dL [facility] Blood, UA Negative Negative - 50 Juanito/mcL [facility] Clarity, UA Clear [facility] Color, UA Yellow [facility] Glucose, UA Negative Negative - 1999(110) ++++ mg/dL [facility] Interpretation and review of laboratory results Abnormal [facility] Ketones, UA Negative Negative - 160(16) ++++ mg/dL [facility] Leukocytes, UA Positive Negative - 500+++ Ken/mcL [facility] Comment on above: small Nitrite, UA Negative Negative - Positive [facility] pH, UA 6.5 5 - 9 [facility] Protein, UA Negative Negative - 1999(20) ++++ mg/dL [facility] Spec Grav, UA 1.010 1 - 1.03 [facility] Urobilinogen, UA 0.2 0.2 - 12 mg/dL [facility] CBC w/ Auto Diffon 4 Basophils/100 WBC (Bld) 0.4 % Normal 0.0-2.0 [facility] Comment on above: Performed By: #### 2 [id number] #### [facility] [address] [place] [address] Basophils/Leukocyt es Auto (Bld) [Pure # fraction] 0.0 E9/L Normal 0.0-0.2 [facility] Comment on above: Performed By: #### 2 [id number] #### [facility] [address] [place] [address] Eosinophils (Bld) [#/Vol] 0.2 E9/L Normal 0.0-0.5 [facility] Comment on above: Performed By: #### 2 691014 #### [facility] [address] [place] [address] Eosinophils/100 WBC (Bld) 2.9 % Normal 0.0-8.0 [facility] Comment on above: Performed By: #### 2 398168 #### [facility] [address] [place] [address] Erythrocyte distribution width (RBC) [Ratio] 13.6 % Normal 10.9-14.2 [facility] Comment on above: Performed By: #### 2 967880 #### [facility] [address] [place] [address] Hematocrit (Bld) [Volume fraction] 37.3 % Normal 34.0-46.0 [facility] Comment on above: Performed By: #### 2 247180 #### [facility] [address] [place] [address] Hemoglobin (Bld) [Mass/Vol] 12.8 g/dL Normal 12.0-16.0 [facility] Comment on above: Performed By: #### 2 189716 #### [facility] [address] [place] [address] Lymphocytes (Bld) [#/Vol] 1.9 E9/L Normal 1.0-4.0 [facility] Comment on above: Performed By: #### 2 087217 #### [facility] [address] [place] [address] Lymphocytes/100 WBC (Bld) 24.0 % Normal 14.0-50.0 [facility] Comment on above: Performed By: #### 2 053240 #### [facility] [address] [place] [address] MCH (RBC) [Entitic mass] 30.5 pg Normal 27.0-34.0 [facility] Comment on above: Performed By: #### 2 990924 #### [facility] [address] [place] [address] MCHC (RBC) [Mass/Vol] 34.2 g/dL Normal 31.4-36.0 [facility] Comment on above: Performed By: #### 2 902353 #### [facility] [address] [place] [address] MCV (RBC) [Entitic vol] 89.0 fL Normal 80.0-100.0 [facility] Comment on above: Performed By: #### 2 966381 #### [facility] [address] [place] [address] Monocytes (Bld) [#/Vol] 0.4 E9/L Normal 0.2-1.0 [facility] Comment on above: Performed By: #### 2 560216 #### [facility] [address] [place] [address] Neutrophils (Bld) [#/Vol] 5.5 E9/L Normal 2.0-7.5 [facility] Comment on above: Performed By: #### 2 578891 #### [facility] [address] [place] [address] Neutrophils/100 WBC (Bld) 67.8 % Normal 36.0-75.0 [facility] Comment on above: Performed By: #### 2 086536 #### [facility] [address] [place] [address] Platelet mean volume (Bld) [Entitic vol] 8.3 fL Normal 6.4-10.8 [facility] Comment on above: Performed By: #### 2 274228 #### [facility] [address] [place] [address] [place] [address] Platelets (Bld) [#/Vol] 267.0 E9/L Normal 150.0-500.0 [facility] Comment on above: Performed By: #### 2 804312 #### [facility] [address] [place] [address] RBC (Bld) [#/Vol] 4.2 E12/L Low 4.3-5.9 [facility] Comment on above: Performed By: #### 2 347396 #### [facility] [address] [place] [address] WBC corrected for nucl RBC Auto (Bld) [#/Vol] 8.0 E9/L Normal 4.0-11.0 [facility] Comment on above: Performed By: #### 2 294535 #### [facility] [address] [place] [address] Free T4on 07-23-2024 Free T4 [Mass/Vol] 0.57 ng/dL Low 0.58-1.64 [facility] Comment on above: Performed By: #### 2 300461 #### [facility] [address] [place] [address] Lyteson 07-23-2024 Anion gap [Moles/Vol] 12 mmol/L Normal 6-16 [facility] Comment on above: Performed By: #### 2 312016 #### [facility] [address] [place] [address] Chloride [Moles/Vol] 105 mmol/L Normal 101-111 [facility] Comment on above: Performed By: #### 2 722969 #### [facility] [address] [place] [address] CO2 [Moles/Vol] 24 mmol/L Normal 21-31 [facility] Comment on above: Performed By: #### 2 417818 #### [facility] [address] [place] [address] Potassium [Moles/Vol] 3.5 mmol/L Normal 3.5-5.3 [facility] Comment on above: Performed By: #### 2 659543 #### [facility] [address] [place] [address] Sodium [Moles/Vol] 137 mmol/L Normal 135-145 [facility] Comment on above: Performed By: #### 2 094726 #### [facility] [address] [place] [address] TSHon 07-23-2024 TSH Qn 2.26 m[IU]/L Normal 0.34-5.60 [facility] Comment on above: Performed By: #### 2 467050 #### [facility] [address] [place] [address] CMPon 06-25-2024 Albumin [Mass/Vol] 3.6 g/dL Normal 3.3-5.0 [facility] Comment on above: Performed By: #### 2 338666 #### [facility] [address] [place] [address] Albumin/Globulin (S) [Mass conc ratio] 1.3 Normal 1.1-2.2 [facility] Comment on above: Performed By: #### 2 483218 #### [facility] [address] [place] [address] ALP [Catalytic activity/Vol] 63 Int._Unit/L Normal 21-98 [facility] Comment on above: Performed By: #### 2 849624 #### [facility] [address] [place] [address] ALT No additional P-5'-P [Catalytic activity/Vol] 13 Int._Unit/L Normal 6-46 [facility] Comment on above: Performed By: #### 2 129878 #### [facility] [address] [place] [address] Anion gap [Moles/Vol] 10 mmol/L Normal 6-16 [facility] Comment on above: Performed By: #### 2 192454 #### [facility] [address] [place] [address] AST [Catalytic activity/Vol] 12 Int._Unit/L Normal 5-43 [facility] Comment on above: Performed By: #### 2 843057 #### [facility] [address] [place] [address] Bilirubin [Mass/Vol] 0.7 mg/dL Normal 0.0-1.1 [facility] Comment on above: Performed By: #### 2 807567 #### [facility] [address] [place] [address] Calcium [Mass/Vol] 8.6 mg/dL Low 8.9-11.1 [facility] Comment on above: Performed By: #### 2 810577 #### [facility] [address] [place] [address] Chloride [Moles/Vol] 104 mmol/L Normal 101-111 [facility] Comment on above: Performed By: #### 2 280022 #### [facility] [address] [place] [address] CO2 [Moles/Vol] 25 mmol/L Normal 21-31 [facility] Comment on above: Performed By: #### 2 458381 #### [facility] [address] [place] [address] Creatinine [Mass/Vol] 0.4 mg/dL Low 0.5-1.3 [facility] Comment on above: Performed By: #### 2 270056 #### [facility] [address] [place] [address] Globulin (S) [Mass/Vol] 2.8 g/dL Normal 1.4-4.0 [facility] Comment on above: Performed By: #### 2 017011 #### [facility] [address] [place] [address] Glucose [Mass/Vol] 97 mg/dL Normal 55-199 [facility] Comment on above: Performed By: #### 2 013981 #### [facility] [address] [place] [address] Potassium [Moles/Vol] 3.4 mmol/L Low 3.5-5.3 [facility] Comment on above: Performed By: #### 2 071888 #### [facility] [address] [place] [address] Protein [Mass/Vol] 6.4 g/dL Normal 6.0-7.8 [facility] Comment on above: Performed By: #### 2 688109 #### [facility] [address] [place] [address] Sodium [Moles/Vol] 136 mmol/L Normal 135-145 [facility] Comment on above: Performed By: #### 2 277785 #### [facility] [address] [place] [address] Urea nitrogen [Mass/Vol] 8 mg/dL Normal 5-21 [facility] Comment on above: Performed By: #### 2 999215 #### [facility] [address] [place] [address] Urea nitrogen/Creatinin e [Mass ratio] 20 No Units Normal 10-20 [facility] Comment on above: Performed By: #### 2 014399 #### [facility] [address] [place] [address] TSHon 06-25-2024 TSH Qn 3.63 m[IU]/L Normal 0.34-5.60 [facility] Comment on above: Performed By: #### 2 007874 #### [facility] [address] [place] [address] eGFRon 06-25-2024 eGFR 142 mL/min/1.73 m2 Normal >=59 [facility] Comment on above: Order Comment: Order added by Discern Expert. Performed By: #### 1 [id number] #### [facility] [address] [place] [address] TSHon 05-31-2024 TSH Qn 1.99 m[IU]/L Normal 0.34-5.60 [facility] Comment on above: Performed By: #### 2 945969 #### [facility] [address] [place] [address] TSHon 05-01-2024 TSH Qn 1.54 m[IU]/L Normal 0.34-5.60 [facility] Comment on above: Performed By: #### 2 420043 #### [facility] [address] [place] [address] Consent for Treatmenton Consent for Treatment [id number] F Normal [facility] Physician Orderon 04-04-2024 Physician Order [id number]#1.00TI FF Normal [facility] TSHon 04-04-2024 TSH Qn 2.73 m[IU]/L Normal 0.34-5.60 [facility] Comment on above: Performed By: #### 2 421626 #### [facility] [address] [place] [address] XR Spine Cervical 4 or 5 Vie [...] mGy = . DAP = . Normal [facility] XR Spine Thoracic 3 Viewson 09-16-2023 [...] mGy = . DAP = . Normal [facility] Physician Orderon 09-15-2023 Physician Order [id number]#1.00T IFF Normal [facility] T4 Free SerPl-mCncon 023 Free T4 [Mass/Vol] 1.2 ng/dL Normal 0.9-1.7 [facility] Comment on above: Order Comment: Rozina men Type: BLOOD SPECIMEN Ordering Facility: [facility] Address: [address] [place] [address] Performed By: #### 3 024-7, 3016-3 #### [facility] CLIA [id number] [address] [place] [address] [place] TSH SerPl-aCncon 08-18-2023 TSH Qn 2.280 m[IU]/L Normal 0.270-4.200 [facility] Comment on above: Order Comment: Rozina florez Type: BLOOD SPECIMEN Ordering Facility: [facility] Address: [address] [place] [address] Result Comment: If t he patient is , TSH reference range varies by gestational period: First Trimester (weeks 9-12): 0.180-2.990 mIU/L Second Trimester: 0.110-3.980 mIU/L Third Trimester: 0.480-4.710 mIU/L Noe Ramon et al. A Practical Approach for the Verifications and Determination of Site- and Trimester-Specific Reference Intervals for Thyroid Function tests in . Thyroid, 2019:29:3:412-420. Gregor Banegas, et al. 2017 Guidelines of the [place] Thy[employer] for the Diagnosis and Management of Thyroid Disease during and the . Thyroid, 2017:27:3:315-389. Performed By: #### 3 024-7, 3016-3 #### [facility] CLIA [id number] [address] [place] [address] [place] Consent for Treatmenton Consent for Treatment [id number]: 127 [facility] US Renalon 07-08-2023 US Renal Exam [...] Mendoza M.D. Transcribed by: MORENO Technologist: EMILY [facility] XR Abdomen 1 Viewon 07-08-20 XR [...] mGy = . DAP = . Normal [facility] Ambulatory Visit Summaryon 0 06-21-2023 Ambulatory Visit Summary EMMY DALE :2000 Visit Date:06/21/2023 Ambulatory Visit Instructions Your Diagnosis Urinary crystals Recurrent UTI Urethral stricture Gross hematuria Tests Performed Urnls Dip Stick Auto w/o Microscopy POC 93915 Your Care Team Attending Physician - SOBEIDA [...] URL When: Comments: will call pt. Where: [address] [place] [address] You Need to Complete the Following US Renal, *Est. 06/21/23 due within 1 months, Routine, Order for future visit, Transport Mode: Ambulatory, Reason: Other (please specify), Reason: Kidney Stones, No, Kidney stones, pp_set_radiology_subspec ialty, [facility] XR Abdomen 1 View, *Est. 06/21/23 due within 1 months, Routine, Order for future visit, Transport Mode: Ambulatory, Reason: Kidney stone, No, Kidney stones, pp_set_radiology_subspec ialty, [facility] [place] Medications What How Much When Instructions Unchanged busPIRone (busPIRone 10 mg Tab) 2 times a day Contact prescribing physician if questions or concerns Unchanged levothyroxine (Synthroid 25 mcg(0.025 mg) Tab) Every day Contact prescribing physician if questions or concerns Test Results Urnls Dip Stick Auto w/o Microscopy POC 70598 (06/21/2023) Bilirubin Urine Dipstick - Negative Blood Urine Dipstick - Negative Glucose Urine Dipstick - Negative Ketones Urine Dipstick - Negative Leukocytes Urine Dipstick - Negative Nitrite Urine Dipstick - Negative Protein Urine Dipstick - Negative Specific [place] Urine Dipstick - 1.010 Urine Appearance Urine [...] ? 8 oz (237 mL) of milk, bqaqxot-szdpfboxwfgk-pie ry milk, and calcium-fortifiedfruit juice. Calcium-fortified means [...] wheat cereals. (more content not included)... Normal [facility] Patient Educationon 06-21-20 Patient Education Nephrology [...] ? 8 oz (237 mL) of milk, adyuqmr-ajetbzsxrhiz-prt ry milk, and calcium-fortifiedfruit juice. Calcium-fortified means [...] Bangladeshi chard. ? Peanuts. ? Potato chips, japanese fries, and baked potatoes with skin on. ? Nuts and nut products. ? Chocolate. ? If you regularly take a diuretic medicine, make sure to eat at least 1 or 2 servings of fruits or vegetables that are high in potassium each day. These include: ? Avocado. ? Banana. ? [place], prune, carrot, or tomato juice. ? Baked [...] fish oil, or vitamin B6. ? Take ofig-hms-trnhhfv and prescription medicines only as told by your health care provider. These include supplements. What foods should I limit? Limit your in (more content not included)... Normal [facility] Urology Office/Clinic Noteon 06-21-2023 Urology [...] pass. Will send CORDELIA and KUB to [facility] to see if [...] Urnls Dip Stick Auto w/o Microscopy POC 08669 4. Gross hematuria (R31.0: Gross hematuria) CORDELIA [...] When Contact Information SOBEIDA THOMPSON PA-C, URL [address] [place] [address] Additional Instructions: will call pt. Patient Education [...] History Cystour (more content not included)... Normal [facility] Comment on above: Result Comment: Elec tronically Signed By: SOBEIDA THOMPSON PA-C.br\Date and Time Signed: 06/21/23 12:44 EDT\.br\Electronically Co-Signed By: Laura Lou.br\Date and Time Co-Signed: 06/21/23 12:25 EDT PAP [id number] 06-07-2023 Cytology report Cyto stain Doc (Cvx/Vag) Note Invalid Interpretation Code [facility] Comment on above: Result Comment: TEST S RESULT FLAG UNITS REF RANGE LAB Clinician Provided Cytology Information Source.............Endocervix No. of containers..01 ThinPrep Vial DIAGNOSIS: 01 NEGATIVE FOR INTRAEPITHELIAL LESION OR MALIGNANCY. Specimen adequacy: 01 Satisfactory for evaluation. Endocervical and/or squamous metaplastic cells (endocervical component) are present. Performed by: Clif Bolaños Sewing Line Baler ([facility]) . 01 Note: Note 01 The [...] High,A-Abnormal,AA-Critical Abnormal Performed at: 01 [facility] [address] [address] Lisa Ellington MD, Performed at: [facility] [address] [id number] MD Chandana Gonzalez Performed By: #### 3 [id number] ####[facility] [address] [place] [address] Consent for Treatmenton Consent for Treatment [id number]: 127 Normal [facility] Heart and Vascular Office/Cl inic Noteon [...] but unfortunately she was called by the welder assistant and told that it was not working. [...] her Sy (more content not included)... Normal [facility] Comment on above: Result Comment: Elec tronically Signed By: SAMUEL VELAZQUEZ, Benjamin Lopez\.br\Date and Time Signed: 06/01/23 14:25 EDT PAP [id number] 06-01-2023 Collection Technique BRUSH-SPATULA Normal [facility] Comment on above: Performed By: #### 3 [id number] ####[facility] [address] [place] [address] Gynecological Body Site ENDOCERVIX Normal [facility] Comment on above: Performed By: #### 3 [id number] ####[facility] [id number] [place] [id number] Physician Orderon 06-01-2023 Physician Order [id number]#[id number] :127 Normal [facility] Physician Order [id number]#1.00CD: 127 Normal [facility] C Urineon 05-27-2023 Bacteria identified Cx [...] R1: This test was performed at: [facility], [address] [place] [address], [address]- , , Normal [facility] Comment on above: Performed By: #### 2 [id number] ####[facility] [address] [place] [address] T4 Free SerPl-mCncon 023 Free T4 [Mass/Vol] 1.2 ng/dL Normal 0.9-1.7 [facility] Comment on above: Order Comment: Speci men Type: BLOOD SPECIMEN Ordering Facility: [facility] Address: [address] [place] [address] Performed By: #### 3 024-7, 3016-3 #### [facility] CLIA [id number] [address] [facility] [place] [id number] [place] TSH SerPl-aCncon 05-26-2023 TSH Qn 2.260 m[IU]/L Normal 0.270-4.200 [facility] Comment on above: Order Comment: Speci men Type: BLOOD SPECIMEN Ordering Facility: [facility] Address: [address] [place] [address] Result Comment: If t he patient is , TSH reference range varies by gestational period: First Trimester (weeks 9-12): 0.180-2.990 mIU/L Second Trimester: 0.110-3.980 mIU/L Third Trimester: 0.480-4.710 mIU/L Noe Ramon et al. A Practical Approach for the Verifications and Determination of Site- and Trimester-Specific Reference Intervals for Thyroid Function tests in . Thyroid, 2019:29:3:412-420. Gregor Banegas, et al. 2017 Guidelines of the [place] Thyroid Association for the Diagnosis and Management of Thyroid Disease during and the . Thyroid, 2017:27:3:315-389. Performed By: #### 3 024-7, 3016-3 #### [facility] CLIA [id number] [address] OF [place] Consent for Treatmenton 05-01 Consent for Treatment [id number]: 127 Normal [facility] Physician Orderon 05-25-2023 Physician Order [id number]#[id number]:12 7 Normal [facility] Urinalysison 05-25-2023 Bacteria LM Ql (Urine sed) 2+ /HPF Abnormal Trace [facility] Comment on above: Performed By: #### 1 [id number] ####[facility] [address] [place] [address] Bilirubin Ql (U) Negative Normal Negative [facility] Comment on above: Performed By: #### 1 [id number] ####[facility] [address] [place] [address] Clarity (U) SL CLOUDY Abnormal Clear [facility] Comment on above: Performed By: #### 1 [id number] ####[facility] [address] [place] [address] Color (U) YELLOW Normal Yellow [facility] Comment on above: Performed By: #### 1 [id number] ####[facility] [address] [place] [address] Crystals LM Ql (Urine sed) Present Normal [facility] Comment on above: Performed By: #### 1 [id number] ####[facility] [address] [place] [address] Epithelial cells.squamous LM.HPF (Urine sed) [#/Area] 0-2 Normal 0-2 [facility] Comment on above: Performed By: #### 1 [id number] ####[facility] [address] [place] [address] Glucose Test strip (U) [Mass/Vol] Negative Normal Negative [facility] Comment on above: Performed By: #### 1 [id number] ####[facility] [address] [place] [address] Hemoglobin Ql (U) 2+ Abnormal Negative [facility] Comment on above: Performed By: #### 1 [id number] ####[facility] [address] [place] [address] Ketones (U) [Mass/Vol] Negative Normal Negative [facility] Comment on above: Performed By: #### 1 [id number] ####[facility] [address] [place] [address] Hundred.plasma/Lit hium.RBC (Bld) [Mass ratio] 0-3 Normal 0-3 [facility] Comment on above: Performed By: #### 1 [id number] ####[facility] [address] [place] [address] Mucus Ql (Urine sed) TRACE Normal [facility] Comment on above: Performed By: #### 1 [id number] ####[facility] [address] [place] [address] Nitrite Ql (U) Positive Abnormal Negative [facility] Comment on above: Performed By: #### 1 [id number] ####[facility] [address] [address] pH (U) 6.0 [pH] Invalid Interpretation Code 5.0-9.0 [facility] Comment on above: Performed By: #### 1 [id number] ####[address] [address] Protein (U) [Mass/Vol] Negative Normal Negative [facility] Comment on above: Performed By: #### 1 [id number] ####[address] [address] Specific gravity (U) [Rel density] 1.010 Invalid Interpretation Code 1.005-1.030 [facility] Comment on above: Performed By: #### 1 [id number] ####[id number] Type of Urine collection method Clean Catch Normal [facility] Comment on above: Performed By: #### 1 [id number] ####[place] 2595657 Urobilinogen Qn (U) 0.2 {Catarino'U}/dL Normal 0.0-1.0 [facility] Comment on above: Performed By: #### 1 [id number] ####[place] 2595657 WBC Auto Ql (U) 1+ Abnormal Negative [facility] Comment on above: Performed By: #### 1 [id number] ####[address] [address] WBC LM.HPF (Urine sed) [#/Area] 26-30 Abnormal 0-5 [facility] Comment on above: Performed By: #### 1 [id number] ####[address] [address] Consent for Treatmenton 04-30 Consent for Treatment [id number]: 127 Normal [facility] Consent for Treatmenton Consent for Treatment [id number]: 127 Normal [facility] V[facility] Office/Cl inic [...] 1 month. (more content not included)... Normal [facility] Comment on above: Result Comment: Elec tronically Signed By: Samuel VELAZQUEZ, Benjamin Le.br\Date and Time Signed: 05/05/23 16:11 EDT Physician Orderon 05-05-2023 Physician Order [id number]#1.00CD :127 Normal [facility] Stress EKG Tracingson 2022 Stress EKG Tracings [id number]#1.00CD: 127 Normal [facility] Consent for Treatmenton 03-31 Consent for Treatment [id number]#1.00CD: 127 Normal [facility] T3Free SerPl-mCncon 04-06-20 23 Free T3 [Mass/Vol] 3.3 pg/mL Normal 2.3-4.1 [facility] Comment on above: Order Comment: Speci men Type: BLOOD SPECIMEN Ordering Facility: [facility] Address: [address] [place] [address] Performed By: #### 3 051-0, 3024-7, 3016-3 #### [facility] CLIA [id number] [address] [place] T4 Free SerPl-mCncon 023 Free T4 [Mass/Vol] 1.4 ng/dL Normal 0.9-1.7 [facility] Comment on above: Order Comment: Specolivier florez Type: BLOOD SPECIMEN Ordering Facility: [facility] Address: [address] [place] [address] Performed By: #### 3 051-0, 3024-7, 3016-3 #### [facility] CLIA [id number] [address] [place] [address] OF SID THYROGLOBULIN ABon Thyroglobulin Ab Qn 1.8 [IU]/mL Normal <4.0 [facility] Comment on above: Order Comment: Rozina florez Type: BLOOD SPECIMEN Ordering Facility: [facility] Address: [address] [place] [address] Result Comment: The Thyroglobulin Antibody test was performed using the Evinoel DXI paramagnetic particle chemiluminescent immunoassay method. Results obtained with different assay methods or kits cannot be used interchangeably. Performed By: #### T JASON #### [facility] CLIA [id number] [address] [place] [address] OF SID THYROID PEROXIDASE ANTIBODY BLOODon 04-06-2023 [place] Qn 4572.0 [IU]/mL High <5.6 [facility] Comment on above: Order Comment: Rozina florez Type: BLOOD SPECIMEN Ordering Facility: [facility] Address: [address] [place] [address] Result Comment: Thyr oid Peroxidase Antibody test is used as an aid in diagnosis of autoimmune thyroid disease. Clinical correlation is required. Performed By: #### M ICRO #### [facility] CLIA [id number] [address] [place] [address] [place] TSH SerPl-aCncon 04-06-2023 TSH Qn 6.050 m[IU]/L High 0.270-4.200 [facility] Comment on above: Order Comment: Rozina florez Type: BLOOD SPECIMENOrdering Facility: [facility] Address: [address] [place] [address] Result Comment: If t he patient is , TSH reference range varies by gestational period: First Trimester (weeks 9-12): 0.180-2.990 mIU/L Second Trimester: 0.110-3.980 mIU/L Third Trimester: 0.480-4.710 mIU/L Noe Ramon et al. A Practical Approach for the Verifications and Determination of Site- and Trimester-Specific Reference Intervals for Thyroid Function tests in . Thyroid, 2019:29:3:412-420. Gregor Banegas, et al. 2017 Guidelines of the [place] Thyroid Association for the Diagnosis and Management of Thyroid Disease during and the . Thyroid, 2017:27:3:315-389. Performed By: #### 3 051-0, 3024-7, 3016-3 ####[facility] [id number] [place] [id number] [facility] CNOVon 03-08-2023 CNOV Office Visit (ENDOLN ) -------- EMMY DALE ([id number]) 1 F Date Time Provider Department 03/08/23 [...] Arthritis Father in blood . was at [facility] when baby thought to be related to [...] motions. (more content not included)... Normal [facility] Vital Signs Date Time Vital Sign Value Performing Clinician Facility 08-27-2024 08:50-0400 Body weight 104.33 kg [employer] DO Work Phone: [facility] 08-27-2024 08:50-0400 Diastolic blood pressure 68 mm[Hg] CH4e Ajith DO Work Phone: [facility] 08-27-2024 08:50-0400 Systolic blood pressure 110 mm[Hg] [employer] DO Work Phone: [facility] 08-14-2024 09:36-0400 Body weight 101.61 kg [employer] DO Work Phone: [facility] 08-14-2024 09:36-0400 Diastolic blood pressure 70 mm[Hg] [employer] DO Work Phone: [facility] 08-14-2024 09:36-0400 Systolic blood pressure 120 mm[Hg] Dami Ajith DO Work Phone: [facility] 07-31-2024 08:55-0400 Body weight 99.34 kg Dami Ajith DO Work Phone: [facility] 07-31-2024 08:55-0400 Diastolic blood pressure 68 mm[Hg] Dami Ajith DO Work Phone: [facility] 07-31-2024 08:55-0400 Systolic blood pressure 112 mm[Hg] Dami Ajith DO Work Phone: [facility] 09-15-2023 13:30-0500 Body height 162.56 cm Lyndon [employer] Other [facility] Other 09-15-2023 13:30-0500 Body mass index (BMI) [Ratio] 30.21 kg/m2 [facility] [employer] Other [facility] Other 09-15-2023 13:30-0500 Body weight 79.83 kg Lyndon [employer] Other [facility] Other 09-15-2023 13:30-0500 Diastolic blood pressure 68 mm[Hg] Lyndon [employer] Other [facility] Other 09-15-2023 13:30-0500 Respiratory rate 18 /min Lyndon [employer] Other [facility] Other 09-15-2023 13:30-0500 SaO2% (BldA) [Mass fraction] 99 % Lyndon [employer] Other [facility] Other 09-15-2023 13:30-0500 Systolic blood pressure 118 mm[Hg] Lyndon [employer] Other [facility] Other 07-12-2023 09:15-0400 Body height 162.56 cm Lyndon [employer] Other [facility] Other 07-12-2023 09:15-0400 Body mass index (BMI) [Ratio] 29.86 kg/m2 Lyndon Easterwood Other [facility] Other 07-12-2023 09:15-0400 Body temperature 98.6 [degF] Lyndon [employer] Other [facility] Other 07-12-2023 09:15-0400 Body weight 78.93 kg Lyndon [employer] Other [facility] Other 07-12-2023 09:15-0400 Diastolic blood pressure 70 mm[Hg] Lyndon Easterwood Other [facility] Other 07-12-2023 09:15-0400 Respiratory rate 20 /min Lyndon Easterwood Other [facility] Other 07-12-2023 09:15-0400 SaO2% (BldA) [Mass fraction] 98 % Lyndon Easterwood Other [facility] Other 07-12-2023 09:15-0400 Systolic blood pressure 112 mm[Hg] Lyndon Easterwood Other [facility] Other 05-25-2023 17:30-0400 Body height 162.56 cm Lyndon Easterwood Other [facility] Other 05-25-2023 17:30-0400 Body mass index (BMI) [Ratio] 30.04 kg/m2 Lyndon Easterwood Other [facility] Other 05-25-2023 17:30-0400 Body temperature 98.2 [degF] Lyndon Easterwood Other [facility] Other 05-25-2023 17:30-0400 Body weight 79.38 kg Lyndon Easterwood Other [facility] Other 05-25-2023 17:30-0400 Diastolic blood pressure 72 mm[Hg] Lyndon Easterwood Other [facility] Other 05-25-2023 17:30-0400 Respiratory rate 20 /min Lyndon Joseerwood Other [facility] Other 05-25-2023 17:30-0400 SaO2% (BldA) [Mass fraction] 99 % Lyndon [employer]wood Other [facility] Other 05-25-2023 17:30-0400 Systolic blood pressure 110 mm[Hg] Lyndon Easterwood Other [facility] Other 03-08-2023 16:13-0400 Body weight 83.92 kg Martina Rodriguez MD, PhD Work Phone: [facility] 03-08-2023 16:13-0400 Diastolic blood pressure 76 mm[Hg] Martina Rodriguez MD, PhD Work Phone: [facility] 03-08-2023 16:13-0400 Systolic blood pressure 116 mm[Hg] Martina Rodriguez MD, PhD Work Phone: [facility] 08-05-2022 16:00-0400 Body height 162.56 cm Lyndon Joseerwood Other [facility] Other 08-05-2022 16:00-0400 Body mass index (BMI) [Ratio] 32.78 kg/m2 Lyndon Dalal Other [facility] Other 08-05-2022 16:00-0400 Body temperature 98 [degF] Lyndon Dalal Other [facility] Other 08-05-2022 16:00-0400 Body weight 86.64 kg Lyndon Dalal Other [facility] Other 08-05-2022 16:00-0400 Diastolic blood pressure 76 mm[Hg] yLndon Dalal Other [facility] Other 08-05-2022 16:00-0400 Respiratory rate 20 /min Lyndon Dalal Other [facility] Other 08-05-2022 16:00-0400 SaO2% (BldA) [Mass fraction] 99 % Lyndon Dalal Other [facility] Other 08-05-2022 16:00-0400 Systolic blood pressure 122 mm[Hg] Lyndon Dalal Other [facility] Other Encounters Encounter Date Encounter Type Care [...] 07-23-2024 End: 07-23-2024 ambulatory Dami R AJITH Facility:[facility] Start: 07-19-2024 End: 07-19-2024 ambulatory LELE MELO Not Available Start: 07-05-2024 End: 07-05-2024 ambulatory DAMI AJITH Not Available Start: 06-25-2024 End: 06-25-2024 ambulatory DAMI AJITH Not Available Start: 06-25-2024 End: 06-25-2024 ambulatory LELE ALEJO Facility:[facility] Start: 06-12-2024 End: 06-12-2024 ambulatory DAMI R AJITH [facility] Start: 06-04-2024 End: 06-04-2024 ambulatory LELE MELO Not Available Start: 05-14-2024 End: 05-14-2024 ambulatory DAMI R AJITH [facility] Start: 05-08-2024 End: 05-08-2024 ambulatory DAMI AJITH Not Available Start: 04-09-2024 End: 04-09-2024 ambulatory DAMI AJITH Not Available Start: 04-04-2024 ambulatory Dami R AJITH Facility: [facility] Start: 03-12-2024 End: 03-12-2024 ambulatory DAMI AJITH Not Available Start: 02-24-2024 End: 02-24-2024 ambulatory DAMI AJITH Not Available Start: 12-04-2023 End: 12-04-2023 ambulatory Lyndon [employer] Other [facility] Other Start: 12-04-2023 Encounter by Prepared Response Lyndon Dalal [facility] Start: 11-05-2023 End: 11-05-2023 ambulatory Lyndon Euf[employer]wood Other [facility] Other Start: 11-05-2023 Encounter by Prepared Response Lyndon Fallwood [facility] Start: 10-25-2023 End: 10-25-2023 ambulatory Lyndon John Dalal Facility:[facility] Start: 10-10-2023 End: 10-10-2023 ambulatory Lyndon Eufemiawood Other [facility] Other Start: 10-10-2023 Telephone encounter Lyndon Fallwood [facility] Start: 09-26-2023 End: 09-26-2023 ambulatory Lyndon Joseerwood Other [facility] Other Start: 09-26-2023 Telephone encounter Lyndonjessica [place] [facility] Start: 09-18-2023 End: 09-18-2023 ambulatory Lyndon Joseerwood Other [facility] Other Start: 09-18-2023 Telephone encounter Lyndonjessica Garciaerwood [facility] Start: 09-15-2023 End: 09-15-2023 ambulatory LYNDON [facility] [employer] Other Start: 09-15-2023 Office outpatient visit 25 minutes Lyndon Joseerwood [facility] Start: 08-18-2023 End: 08-18-2023 ambulatory LYNDON [facility] Facility:[facility] Start: 08-05-2023 Get Medical Advice Martina Rodriguez MD, PhD Work Phone: Endocrinology Comment on above: lab orders Start: 07-22-2023 End: 07-22-2023 ambulatory [facility] Other [facility] Other Start: 07-22-2023 [facility]phone [facility] Start: 07-12-2023 End: 07-12-2023 ambulatory Lyndon [facility] Other [facility] Other Start: 07-12-2023 Office outpatient visit 25 minutes Lyndon Joseerwood [facility] Start: 07-12-2023 Telephone encounter Lyndon Joseerwood [facility] Start: 07-08-2023 End: 07-08-2023 ambulatory SOBEIDA THOMPSON Facility:[facility] Start: 06-27-2023 End: 06-27-2023 ambulatory Lyndon Josewood Other [facility] Other Start: 06-27-2023 Telephone encounter Lyndon Joseerwood [facility] Start: 06-21-2023 End: 06-21-2023 ambulatory SOBEIDA THOMPSON Facility:[facility] Start: 06-01-2023 End: 06-01-2023 ambulatory Benjamin BAKER Facility:[facility] Start: 06-01-2023 End: 06-01-2023 ambulatory Bill Kat Facility:[facility] Start: 05-26-2023 End: 05-26-2023 [facility] Start: 05-25-2023 End: 05-25-[address] [facility] Other Start: 05-25-2023 Office outpatient visit 15 minutes Lyndon Joseelham [facility] Start: 05-17-2023 End: 05-17-2023 ambulatory Benjamin BAKER Facility:[facility] Start: 05-05-2023 End: 05-05-2023 ambulatory Benjamin BAKER Facility:[facility] Start: 04-15-2023 End: 04-15-2023 ambulatory Benjamin BAKER Facility:[facility] Start: 04-06-2023 End: 04-06-2023 ambulatory MARTINA RODRIGUEZ Facility:[facility] Start: 03-08-2023 End: 03-08-2023 ambulatory MARTINA RODRIGUEZ Facility:[facility] Start: 03-08-2023 End: 03-08-2023 Patient encounter procedure Martina Rodriguez MD, PhD Work Phone: Endocrinology Comment on above: Vikki's thyroidi tis (Primary Dx) Start: 02-28-2023 End: 02-28-2023 ambulatory Lyndon Yoselin Other [facility] Other Start: 02-28-2023 Telephone encounter Lyndon Joseelham [facility] Start: 02-21-2023 End: 02-21-2023 ambulatory COMPENSATION CONSULTANT Lyndon [facility] Work Phone: [facility] Work Phone: Start: 02-21-2023 End: 02-21-2023 Discharged Recurring COMPENSATION CONSULTANT Lyndon Yoselin Work Phone: [facility] [place] Work Phone: Start: 08-09-2022 End: 08-09-2022 ambulatory Lyndon Yoselin Other [facility] Other Start: 08-09-2022 Telephone encounter Lyndon Joseelham [facility] Start: 08-05-2022 End: 08-06-2022 Emergency department patient visit Lyndon Dalal Facility:[facility] Start: 08-05-2022 End: 08-05-2022 ambulatory Lyndon Dalal Other [facility] Other Start: 08-05-2022 Office outpatient visit 40 minutes Lyndon Dalal [facility] Procedures Date Procedure Procedure Detail Performing Clinician [...] Routine [facility] [address] [place] [id number] Dami Canseco, DO [address] [place] [address] [facility] Start: 09-10-2024 End: 09-10-2024 Patient encounter procedure 09/10/2024 8:40 AM EST Routine [facility] [address] [place] [id number] Dami Canseco, DO [address] [place] [address] [facility] Start: 09-03-2024 End: 09-03-2024 Patient encounter procedure 09/03/2024 8:40 AM EST Routine [facility] [address] [place] [address] Dami Canseco, DO [address] [place] [address] [facility] Start: 08-27-2024 End: 08-27-2024 Patient encounter procedure 08/27/2024 8:40 AM EDT Routine [facility] [address] [place] [phone] Dami Canseco, DO [address] [place] [address] [facility] Start: 08-14-2024 End: 08-14-2024 Patient encounter procedure [facility] Comment on above: Arrived Start: 08-06-2024 End: 08-06-2024 Professional / ancillary services management 08/06/2024 8:00 AM EDT Ancillary Procedure [facility] [address] [facility] [place] [address] [facility] Start: 07-31-2024 End: 07-31-2024 Patient encounter procedure 07/31/2024 8:50 AM EDT Routine [facility] [address] [place] [address] Dami Canseco, DO [address] [place] [address] Arrived [facility] Comment on above: Arrived Start: 07-01-2024 Influenza vaccination Influenza Vacc ine (#1) [facility] Start: 08-08-2023 End: 10-08-2023 Thyrotropin [Units/volume] in Serum or Plasma TSH BLD Lab Routine Vikki's thyroiditis Expected: 08/08/2023, Expires: 10/08/2023 [facility] Work Phone: Comment on above: Expected: 08/08/2023 , Expires: 10/08/2023 Start: 08-08-2023 End: 10-08-2023 Thyroxine (T4) free [Mass/volume] in Serum or Plasma T4 FREE/FREE THYROX Lab Routine Vikki's thyroiditis Expected: 08/08/2023, Expires: 10/08/2023 [facility] Work Phone: Comment on above: Expected: 08/08/2023 , Expires: 10/08/2023 Start: 07-07-2023 Urine microalbumin profile [facility] Start: 07-01-2023 Covid-19 Vaccine () Covid-19 Vaccine () [facility] Start: 07-01-2023 Influenza vaccination Influenza Vacc ine (#1) [facility] Start: 03-31-2023 End: 05-31-2023 Thyroglobulin Ab [Units/volume] in Serum or Plasma THYROGLOBULIN AB Lab Routine Vikki's thyroiditis Expected: 03/31/2023, Expires: 05/31/2023 [facility] Work Phone: Comment on above: Expected: 03/31/2023 , Expires: 05/31/2023 Start: 03-31-2023 End: 05-31-2023 THYROID PEROXIDASE ANTIBODY BLOOD THYROID PEROXIDASE ANTIBODY BLOOD Lab Routine Vikki's thyroiditis Expected: 03/31/2023, Expires: 05/31/2023 [facility] Work Phone: Comment on above: Expected: 03/31/2023 , Expires: 05/31/2023 Start: 03-31-2023 End: 05-31-2023 Thyrotropin [Units/volume] in Serum or Plasma TSH BLD Lab Routine Vikki's thyroiditis Expected: 03/31/2023, Expires: 05/31/2023 [facility] Work Phone: Comment on above: Expected: 03/31/2023 , Expires: 05/31/2023 Start: 03-31-2023 End: 05-31-2023 Thyroxine (T4) free [Mass/volume] in Serum or Plasma T4 FREE/FREE THYROX Lab Routine Vikki's thyroiditis Expected: 03/31/2023, Expires: 05/31/2023 [facility] Work Phone: Comment on above: Expected: 03/31/2023 , Expires: 05/31/2023 Start: 03-31-2023 End: 05-31-2023 Triiodothyronine (T3) Free [Mass/volume] in Serum or Plasma T3 FREE BLD Lab Routine Vikki's thyroiditis Expected: 03/31/2023, Expires: 05/31/2023 [facility] Work Phone: Comment on above: Expected: 03/31/2023 , Expires: 05/31/2023 Start: 10-31-2022 DEPRESSION ASSESSMENT DEPRESSION ASS ESSMENT [facility] Start: 2021 PAP TESTING PAP TESTING [facility] Start: 02-02-2021 COVID-19 VACCINE (3 - Booster for Pfizer series) COVID-19 VACCINE (3 - Booster for Pfizer series) [facility] Start: 2018 CHLAMYDIA SCREENING (18-24) CHLAMYDIA SCREENING (18-24) [facility] Start: 2018 GC (GONORRHEA) SCREE MICHELLE (18-24) GC (GONORRHEA) SCREENING (18-24) [facility] Start: 2018 HEPATITIS C SCREENING HEPATITIS C SC REENING [facility] Start: 2018 HIV SCREENING HIV SCREENING [facility] Start: 2016 Meningococcal B Vacc ine: Consider Based On Risk (2 of 2 - Risk Bexsero 2-dose series) Meningococcal B Vaccine: Consider Based On Risk (2 of 2 - Risk Bexsero 2-dose series) [facility] Start: 2016 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 (2 of 2 - Risk Bexsero 2-dose series) MENINGOCOCCAL B: Consider based on risk (2 of 2 - Risk Bexsero 2-dose series) [facility] Start: 2014 PEDS TO ADULT TRANSI TION ANNUAL ASSESSMENT PEDS TO ADULT TRANSITION ANNUAL ASSESSMENT [facility] Start: 2012 PEDS TO ADULT TRANSI TION INITIAL DISCUSSION PEDS TO ADULT TRANSITION INITIAL DISCUSSION [facility] Immunizations Immunization Date Immunization Notes Care Provider Milady lewis 07-19-2022 influenza, injectabl e, quadrivalent, contains preservative Lyndon Easterwood Other [facility] Other 07-19-2022 influenza virus vaccine, unspecified formulation Martina Rodriguez MD, PhD Work Phone: [facility] 12-08-2020 Do not use COVID-19 Pfizer 2 dose Lyndon Easterwood Other [facility] Other 11-17-2020 Do not use COVID-19 Pfizer 2 dose Lyndon Easterwood Other [facility] Other 07-31-2020 influenza, injectabl e, quadrivalent, contains preservative Lyndon Easterwood Other [facility] Other 10-18-2016 influenza, injectabl e, quadrivalent, contains preservative Martina Rodriguez MD, PhD Work Phone: [facility] 08-04-2015 influenza, injectabl e, quadrivalent, contains preservative Martina Rodriguez MD, PhD Work Phone: [facility] 04-23-2014 human papilloma viru s vaccine, quadrivalent Martina Rodriguez MD, PhD Work Phone: [facility] 09-29-2013 human papilloma viru s vaccine, quadrivalent Martina Rodriguez MD, PhD Work Phone: [facility] 07-07-2013 human papilloma viru s vaccine, quadrivalent Martina Rodriguez MD, PhD Work Phone: [facility] 07-07-2013 meningococcal polysaccharide (groups A, C, Y and W-135) diphtheria toxoid conjugate vaccine (MCV4P) Martina Rodriguez MD, PhD Work Phone: [facility] Work Phone: 07-07-2013 tetanus toxoid, redu ollie diphtheria toxoid, and acellular pertussis vaccine, adsorbed Martina Rodriguez MD, PhD Work Phone: [facility] 08-04-2009 influenza virus vaccine, unspecified formulation Martina Rodriguez MD, PhD Work Phone: [facility] 07-05-2008 hepatitis A vaccine, unspecified formulation Martina Rodriguez MD, PhD Work Phone: [facility] 09-09-2007 influenza virus vaccine, unspecified formulation Martina Rodriguez MD, PhD Work Phone: [facility] Work Phone: 06-19-2007 hepatitis A vaccine, unspecified formulation Martina Rodriguez MD, PhD Work Phone: [facility] 06-19-2007 varicella virus vaccine Parth Rodriguez MD, PhD Work Phone: [facility] 09-14-2006 influenza virus vaccine, unspecified formulation Martina Rodriguez MD, PhD Work Phone: [facility] 05-13-2006 diphtheria, tetanus toxoids and acellular pertussis vaccine Martina Rodriguez MD, PhD Work Phone: [facility] Work Phone: 05-13-2006 measles, mumps and rubella virus vaccine Martina Rodriguez MD, PhD Work Phone: [facility] Work Phone: 05-13-2006 poliovirus vaccine, inactivated Martina Rodriguez MD, PhD Work Phone: [facility] Work Phone: 05-13-2006 varicella virus vaccine Parth Rodriguez MD, PhD Work Phone: [facility] Work Phone: 07-26-2005 influenza virus vaccine, unspecified formulation Martina Rodriguez MD, PhD Work Phone: [facility] Work Phone: 07-30-2004 influenza virus vaccine, unspecified formulation Martina Rodriguez MD, PhD Work Phone: [facility] Work Phone: 06-30-2002 diphtheria, tetanus toxoids and acellular pertussis vaccine Martina Rodriguez MD, PhD Work Phone: [facility] Work Phone: 06-30-2002 poliovirus vaccine, inactivated Martina Rodriguez MD, PhD Work Phone: [facility] Work Phone: 04-04-2002 haemophilus influenz ae type b vaccine, HbOC conjugate Martina Rodriguez MD, PhD Work Phone: [facility] Work Phone: 04-04-2002 measles, mumps and rubella virus vaccine Martina Rodriguez MD, PhD Work Phone: [facility] Work Phone: 12-16-2001 hepatitis B vaccine, pediatric or pediatric/adolescent dosage Martina Rodriguez MD, PhD Work Phone: [facility] Work Phone: 12-16-2001 pneumococcal conjuga te vaccine, 7 valent Martina Rodriguez MD, PhD Work Phone: [facility] Work Phone: 09-30-2001 pneumococcal conjuga te vaccine, Shaq valdenny Rodriguez MD, PhD Work Phone: [facility] Work Phone: 06-24-2001 diphtheria, tetanus toxoids and acellular pertussis vaccine Martina Rodriguez MD, PhD Work Phone: [facility] Work Phone: 06-24-2001 haemophilus influenz ae type b vaccine, HbOC conjugate Martina Rodriguez MD, PhD Work Phone: [facility] Work Phone: 06-24-2001 pneumococcal conjuga te vaccine, Shaq valdenny Rodriguez MD, PhD Work Phone: [facility] Work Phone: 04-12-2001 diphtheria, tetanus toxoids and acellular pertussis vaccine Martina Rodriguez MD, PhD Work Phone: [facility] Work Phone: 04-12-2001 haemophilus influenz ae type b vaccine, HbOC conjugate Martina Rodriguez MD, PhD Work Phone: [facility] Work Phone: 04-12-2001 poliovirus vaccine, inactivated Martina Rodriguez MD, PhD Work Phone: [facility] Work Phone: 02-03-2001 diphtheria, tetanus toxoids and acellular pertussis vaccine Martina Rodriguez MD, PhD Work Phone: [facility] Work Phone: 02-03-2001 haemophilus influenz ae type b vaccine, HbOC conjugate Martina Rodriguez MD, PhD Work Phone: [facility] Work Phone: 02-03-2001 poliovirus vaccine, inactivated Martina Rodriguez MD, PhD Work Phone: [facility] Work Phone: 2000 hepatitis B vaccine, pediatric or pediatric/adolescent dosage Martina Rodriguez MD, PhD Work Phone: [facility] Work Phone: 2000 hepatitis B vaccine, pediatric or pediatric/adolescent dosage Martina Rodriguez MD, PhD Work Phone: [facility] Work Phone: Payers Date Payer Category Payer Private Health Insurance [id number] 2024 Unknown [id number] 2023 Unknown [id number] 2022 Private Health Insurance [id number] 2022 Self-pay 2020 Private Health Insurance [id number] 2020 Private Health Insurance [id number]. [id number] 2000 Unknown [id number] .16.840.1.856773.3.579.2.7 2000 Unknown [id number] 2.16.840.1.257848.3.579.2. 2000 Unknown [id number] 2.16.840.1.439757.3.579.2.7 2000 Unknown [id number] 2.16.840.1.485299.3.579.2 2000 Unknown [id number] 2.16.840.1.175066.3.579.2. 2000 Unknown [id number] 2.16.840.1.054416.3.579.2 2000 Unknown [id number] 2.16840.1.726080.3.579.2 2000 Unknown [id number] 2.16840.1.848553.3.579.2 2000 Unknown [id number] 2.16840.1.487851.3.579.2 2000 Unknown [id number] 2.16840.1.981147.3.579.2 2000 Unknown [id number] 2.16840.1.877892.3.579.2 2000 Unknown [id number] 2.16840.1.076182.3.579.2.1285 2000 Unknown [id number] 2.16.840.1.170875.3.579.2.1285 2000 Unknown [id number] 2.16.840.1.991995.3.579.2.1285 2000 Unknown [id number] 2.16.840.1.174644.3.579.2. 2000 Unknown [id number] 2.16840.1.149519.3.579.2 2000 Unknown [id number] 2.16.840.1.473944.3.579.2.9 2000 Unknown [id number] 2.16.840.1.122306.3.579.2.9 2000 Unknown [id number] 2.16.840.1.242974.3.579.2.9 2000 Unknown [id number] 2.16.840.1.531175.3.579.2.1258 2000 Unknown [id number] 2.16.840.1.401826.3.579.2.1258 2000 Unknown [id number] 2.16.840.1.343569.3.579.2.1258 2000 Unknown [id number] 2.16.840.1.552827.3.579.2.1258 2000 Unknown [id number] 2.16.840.1.343087.3.579.2.1258 2000 Unknown [id number] 2.16.840.1.586673.3.579.2.1258 2000 Unknown [id number] 2.16.840.1.572877.3.579.2.1258 2000 Unknown [id number] 2.16.840.1.614862.3.579.2.1259 [facility] Health Insurance [facility] [id number] Unknown [id number] 2.16.840.1.595735.3.579.2.531 Unknown [facility] Employees [id number] Unknown [id number] 2.16.840.1.742575.3.579.2.531 Social History Date Type Detail Facility Start: 03-08-2023 End: 07-05-[address] [facility] [employer] Other Start: 09-27-2014 End: 07-05-2024 Tobacco smoking status NHIS Never smoked tobacco [facility] History of tobacco use Passive smoker [facility] Start: 03-08-2023 [facility] Start: 2000 Sex Assigned At Not on file [facility] Start: 2000 Sex Assigned At Female F [facility] Start: 03-08-2023 End: 07-05-2024 History of Social function [facility] Start: 07-05-2024 Tobacco use and exposure Smokeless tobacco non-user [facility] Start: 07-19-2024 End: 08-27-2024 Alcoholic beverage intake Ex-drinker (finding) [facility] Start: 01-06-2024 NOMS Malgorzatat pamela Clinical Notes 09-09-2009 to 08-27-2024 Rhoda Ortiz, ELEMENTARY TEACHER - 08/27/2024 8:40 AM EDTMar Ortega, [facility] - 08/14/2024 8:40 AM NIDIA Stephens - [...] 4 mg, Oral, Every 6 hours PRN Gpeallwn-Qlt-Ky-FA ( 1 + IRON PO) ALLERGIES Allergies Allergen Reactions Sulfa Antibiotics Hives and Rash Other Reaction(s): Unknown Other Reaction(s): Rash PROBLEMS Active Ambulatory Problems Diagnosis Date Noted JEFF (amniotic fluid index) borderline low 07/05/2024 27 weeks gestation of 07/05/2024 Resolved Ambulatory Problems Diagnosis Date Noted No Resolved Ambulatory Problems Past Medical History: Diagnosis Date Asthma (CMS/HCC) As a child 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 Exam conducted with a finish sander present. Vitals: There is no height or [...] having left ovary/round ligament pain. Documented by Rhoda Ortiz LPN on behalf of: Dami Canseco DO documented in this encounter [facility] 08-14-2024 History of Presen t illness [...] 4 mg, Oral, Every 6 hours PRN Htbliamv-Eby-Og-FA ( 1 + IRON PO) ALLERGIES Allergies [...] nursing note reviewed. Exam conducted with a finish sander present. Vitals: There is no height or [...] Dami Canseco DO documented in this encounter [facility] 07-31-2024 History of Presen t illness [...] 4 mg, Oral, Every 6 hours PRN Ocvlofhb-Nar-Vh-FA ( 1 + IRON PO) ALLERGIES Allergies [...] Dami Canseco DO documented in this encounter [facility] 09-15-2023 Evaluation note Encounter Date Diagnosis [...] office today for physical therapy to [facility]. Discussed continuation of kugu-wqs-njcvgat medications as needed. Take muscle relaxer as [...] in office today for physical therapy to [place] location through [facility]. Discussed continuation of skxl-rau-axvdkqp medications as needed. Take muscle relaxer as [...] that were not corrected during review process. [facility] Other 09-12-2023 Evaluation note* Encounter Date Diagnosis [...] that were not corrected during review process. [facility] Other 07-26-2023 Evaluation note* Encounter Date Diagnosis [...] that were not corrected during review process. [facility] Other 06-18-2023 NoteEchocardiology Procedure Exam Date/Time Accession # Ordering ECG Stress Exercise 04/15/2023 08:43 EDT [id number] Benjamin Baker MD CPT code 81298 Reason for Exam (ECG Stress Exercise) I95.1;Dizziness [...] Benjamin Baker MD Transcribed by: jamie Technologist: [facility]06-16-2023 Note Echocardiology Procedure Exam Date/Time Accession # Ordering Echo Transthoracic 04/15/2023 09:42 EDT [id number] Benjamin Baker MD Complete CPT code 91645 89851 Reason for Exam (Echo Transthoracic Complete) I95.9;Hypotension Report [facility] [address] [place] [address] Adult Echocardiogram Report Name: EMMY DALE Study Date: 04/15/2023 09:02 AM BP: 105/71 mmHg Patient Location: [facility] HR: 75 : 2000 Gender: Female Height: 63 in Age: 22 yrs Ethnicity: T Weight: 178 lb Reason For Study: Hypotension BSA: 1.8 m2 History: No cardiac history per patient Ordering Physician: Samuel^Benjamin^John Referring Physician: Benjamin Baker Performed By: Jonelle Alvarez, [facility] Interpretation Summary Ejection Fraction = [...] Benjamin Baker MD Transcribed by: YOVANI Technologist: [facility]05-09-2023 Note HNO ID: [id number] Author: Martina Rodriguez MD, PhD Service: ? [...] Arthritis Father in blood . was at [facility] when baby thought to be related to [...] Will monitor thyroid (more content not included)...[facility] 03-08-2023 History of Present illness [...] Arthritis Father in blood . was at [facility] when baby thought to be related to [...] MD, PhD [facility] note* Encounter Date Diagnosis Assessment [...] I would recommend referral to a different meat cutter. Patient does have the name of an meat cutter that she would like referred to. We will put that referral in today. Dr. Roger Kim - [facility] Endocrinology, [facility] February, Dizziness [...] that were not corrected during review process. [facility] Other 10-06-2022 Evaluation note* Encounter Date Diagnosis [...] to ER, I highly recommend she call ELEVATOR MECHANIC the second she leaves our office to follow-up.She needs to let them know about her concerns.I explained to her that even though she may assume that her ELEVATOR MECHANIC will not listen her , I still want her to reach out to that office and explained to them her current concerns. She wants to know what the immediate treatment would be and work-up for spinal headache and possible leak however I cannot provide her with this information as I am not ELEVATOR MECHANIC. Jul, Hip pain (ICD-10 - M25.559) While [...] I did discuss with her concerns over fpvn-yav-rvdjehb medications during breast-feeding. Discussed recommendations currently and please bring this up to ELEVATOR MECHANIC as well for further recommendations. Does not [...] I would like her to follow-up with ELEVATOR MECHANIC or go to ER regarding this dizziness and we can follow-up in office after. If nothing comes from an ELEVATOR MECHANIC/spinal headache/spinal leak standpoint, we can order CT [...] that were not corrected during review process. [place] [facility] Other 11-10-2009 History of Past illness Narrative* Problem Noted Date Resolved Date Constipation 09/09/2009 08/28/2014 documented as of this encounter (statuses as of 03/09/2023) [facility]11-10-[facility] History of Past illness Narrative* Problem Noted Date Diagnosed Date Resolved Date Constipation 09/09/2009 08/28/2014 documented as of this encounter (statuses as of 08/09/2023) [facility] noteNo InformationNort [employer] Other Evaluation note* Diagnosis Vikki's thyroiditis- Primary Chronic lymphocytic thyroiditis [facility] noteNo assessment information [facility] Work Phone: Evaluation note* Diagnosis Vikki's thyroiditis- Primary Chronic lymphocytic thyroiditis [facility]* Diagnosis 31 weeks gestation of Third [...] Vikki's thyroiditis Medical History Pre-eclampsia Surgical History [place] teeth extract 2017 Surgical History Vaginal childbirth 03/2022 Hospitalization History See surgical [facility] Other History general Narrative - Reported* Type Description Date Medical History Exercise-induced asthma Medical History Pityriasis rosea Medical History Tachycardia Medical History Vikki's thyroiditis Medical History Asthma Medical History Pre-eclampsia Medical History Hypotension Surgical History [place] teeth extract 2016 Surgical History Vaginal childbirth 03/2022 Hospitalization History See surgical [facility] Other History general Narrative - Reported* Type Description Date Medical History Exercise-induced asthma Medical History Pityriasis rosea Medical History Tachycardia Medical History Vikki's thyroiditis Medical History Asthma Medical History Pre-eclampsia Medical History Hypotension Medical History GERD (gastroesophageal reflux di sease) Surgical History [place] teeth extract 2016 Surgical History Vaginal childbirth 03/2022 Surgical History EGD/colonoscopy 2011 Hospitalization History See surgical [facility] Other [employer] general Narrative - Reported* Type Description Date Medical History Exercise-induced asthma Medical History Pityriasis rosea Medical History Tachycardia Medical History Vikki's thyroiditis Medical History Asthma Medical History Pre-eclampsia Medical History Hypotension Medical History GERD (gastroesophageal reflux di sease) Medical History Thyromegaly Surgical History [place] teeth extract 2016 Surgical History Vaginal childbirth 03/2022 Surgical History EGD/colonoscopy 2012 Hospitalization History See surgical [facility] Other [employer] general Narrative - Reported* Type Description Date Medical History Exercise-induced asthma Medical History Pityriasis rosea Medical History Tachycardia Medical History Vikki's thyroiditis Medical History Asthma Medical History Pre-eclampsia Medical History Hypotension Medical History GERD (gastroesophageal reflux di sease) Medical History Thyromegaly Medical History Other idiopathic scoliosis, thor acic region Surgical History [place] teeth extract 2016 Surgical History Vaginal childbirth 03/2022 Surgical History EGD/colonoscopy 2011 Hospitalization History See surgical [facility] Other Summary Purpose Family History No Family [...] gastriti s with hemorrhage (K29.01) Referral Organization [facility] Family [employer] Referring Provider First Name Lyndon Referring Provider Last Name [facility] Referring Provider Specialty Nurse Pract itioner Referred Organization [facility] Gastroenterolo gy Referred Provider Patricio Urena Referred Address [address] [facility],[address],[address] Referred Provider Specialty Gastroentero logy Referral Priority Routine General Notes [facility] 023 10:08:56 AM >Received today. [facility] request us to fill out their form and fax to them. They will review the referral and call patient to schedule them. [facility] was fax. [facility] 07/12/2023 01:31:38 PM >Per telephone encounter, patient wants to try [facility] Gastro doctors. Sent P2P Reason *03/08 Dr. Hawa Kim - [facility] Endocrinology, [facility]; [employer]- please send this note with 2 previous notes Diagnosis 1 Vikki's thyroidi tis (E06.3) Referral Organization [facility] [employer] e [place] Referring Provider First Name Lyndon Referring Provider Last Name [facility] Referring Provider Specialty Nurse Pract itioner Referred Organization [facility] Referred Address [address] [place], [place],[address] Referred Provider Specialty Endocrinolog y Referral Priority Routine General Notes [facility] 023 01:21:05 PM >Received today and referral was fax with the [facility] Form. They will review and call patient to schedule Reason *03/08 Dizzines s- TERRENCE; Please send this note with 2 previous notes Diagnosis 1 Dizziness (R42) Referral Organization [facility] [employer] [place] Referring Provider First Name Lyndon Referring Provider Last Name [facility] Referring Provider Specialty Nurse Alfred barron Referred Organization [facility] Referred Provider AlbertoJoes Referred Address [address] [place], [place],[address] Referred Provider Specialty Neurology Referral Priority Routine [...] section and content) DATE CREATED AUTHOR 08/06/2022 [facility] DATE CREATED AUTHOR AUTHOR'S ORGANIZ ATION 08/20/2023 [facility] DATE CREATED AUTHOR AUTHOR'S ORGANIZ ATION 04/06/2024 Millan Nilton [facility] DATE CREATED AUTHOR AUTHOR'S ORGANIZ ATION 05/03/2024 Millan Kennedy [facility] DATE CREATED AUTHOR AUTHOR'S ORGANIZ ATION 05/18/2024 [facility] DATE CREATED AUTHOR AUTHOR'S ORGANIZ ATION 06/14/2024 [facility] DATE CREATED AUTHOR AUTHOR'S ORGANIZ ATION 06/26/2024 Millan Nilton [facility] DATE CREATED AUTHOR AUTHOR'S ORGANIZ ATION 07/07/2024 [facility] DATE CREATED AUTHOR AUTHOR'S ORGANIZ ATION 07/24/2024 [facility] DATE CREATED AUTHOR AUTHOR'S ORGANIZ ATION 07/29/2024 Millan Nilton [facility] DATE CREATED AUTHOR AUTHOR'S ORGANIZ ATION 08/21/2024 Millan Otoe [facility] ical Center DATE CREATED AUTHOR AUTHOR'S ORGANIZ ATION 08/27/[address] [facility] dical Specialists EPIC REASON FOR [...] any alcohol or drug abuse patient.[facility] Hospital[facility] the event this information is protected by the Federal Confidentiality of Alcohol and Drug Abuse Patient Records regulations: The Federal rules restrict any use of the information to criminally investigate or prosecute any alcohol or drug abuse patient.[facility] Care Teams (unrecognized sec tion and content) Risk Specialist Relationship Specialty Start Date End Date Lyndon Dalal CNP [address] [address] PCP - General Family Medicine 03/08/23 Lyndon Dalal CNP [address] [address] Referring Family Medicine 03/04/23 Team Status: Active Member Role Status Dates Lyndon Dalal APRN Primary Care Provider Active Team Status: Inactive Member Role Status Dates Lyndon Dalal APRN Primary Care Provider, Attend ing Provider Active Risk Specialist Relationship Specialty Start Date End Date Lyndon Dalal CNP [address] [facility] [place] [address] [place] [address] PCP - General Family Medicine 03/08/23 Lyndon Dalal CNP [address] [address] Referring Family Medicine 03/04/23 Risk Specialist Relationship Specialty Start Date End Date Ge Cloud MD [address] [phone] PCP - General Family Medicine 01/25/24 Risk Specialist Relationship Specialty Start Date End Date Ge Cloud MD [address] [phone] PCP - General [facility] Medicine 01/25/24 Risk Specialist Relationship Specialty Start Date End Date Ge Cloud MD [address] [phone] PCP - General Family [facility] 01/25/24 Goals (unrecognized section and content) Goals [...] BE BASED ON THE PRIMARY CLINICAL RECORDS. [facility] Inter[facility] Spine [facility]. provides no warranty or guarantee of the accuracy or completeness of information in this document.
--- NOTE | 2024-09-01 09:01 | US_ITS ---
[address] [address] Patient Name: EMMY DALE MRN: [id number] date: 2000 Sex: F Assigned Patient Location: [facility] Current Patient Location: Accession/Order Number: [id number] Exam Date: 09/01/2024 09:02 Report Date: 09/02/2024 08:43 At the request of: ANN GONGORA Procedure: US OB BPP w non-stress EXAMINATION: US OB BPP w non-stress HISTORY:History of pre-eclampsia COMPARISON: Ultrasound OB biophysical 08/25/2024 TECHNIQUE: Ultrasound biophysical profile was performed in the radiology department. BREATHING MOVEMENTS: 2 GROSS BODY MOVEMENTS: 2 TONE: 2 QUALITATIVE AMNIOTIC FLUID VOLUME: 2 PRESENTATION: CEPHALIC HEART RATE: 131.71 bpm AMNIOTIC FLUID VOLUME: 14.15 cm GESTATIONAL AGE: 36 weeks 1 day US/US OB BPP w non-stress IMPRESSION: 1. Total biophysical profile score: 8 2. Possible nuchal cord. Follow-up recommended. Electronically authenticated by: ANGELY NUR Date: 09/02/2024 08:43
[2024-09-01 09:33] VITALS: BP 125/67; PULSE 107
== END 2024-09-01 10:00 | disposition home or self-care (01) ==
LOC: FBCO 07:44 → FBC 08:57
PROVIDERS: PCP Family Medicine; Visit Provider Obstetrics & Gynecology
DX: O99.283 Endocrine, nutritional and metabolic diseases complicating pregnancy, third trimester (principal); Z87.59 Personal history of other complications of pregnancy, childbirth and the puerperium; O28.8 Other abnormal findings on antenatal screening of mother; Z3A.36 36 weeks gestation of pregnancy
CPT/HCPCS: 76818

== ENCOUNTER 2024-09-03 21:54 | Outpatient (REF) | payer OTHER, SELFPAY ==
--- OUTSIDE RECORDS SUMMARY | 2024-09-03 21:59 | XMS_ITS | CCD ---
Author Organization [facility] Care Team Providers Care Milk Treater Name Role Phone Lyndon Dalal Primary Care Unavailable Juancarlos Maria Attending Unavailable Juancarlos Maria Admitting Unavailable Yoselin, Lyndon Unavailable Dallas Dalal CNPa Unavailable [phone] Lyndon Dalal CNP Primary Care Provider [phone] ANKIT Dalal Primary Care Provider ANKIT Dalal Attending Provider [phone] YOSELIN, LYNDON Primary Care Unavailable MARTINA RODRIGUEZ [...] Dami R Attending Unavailable Pedro Luis VELAZQUEZ, [place] Primary Care Provider AJITH, DAMI Attending Unavailable [...] Sulfonamides (Antibiotic); Translations: [sulfa drugs] Drug Allergy [facility] Repository (6 sources) Sulfonamides (Antibiotic); Translations: [SULFA (SULFONAMIDE ANTIBIOTICS)] Drug allergy (disorder) 5 [facility] Repository (2 sources) Sulfonamide Drug allergy [facility] Other (20 sources) Substance with sulfonamide structure and antibacterial mechanism of action (substance) Drug [facility] (3 sources) Sulfonamides (Antibiotic); Translations: [sulfa drugs] Propensity to adverse reactions (disorder) [facility] Repository Medications Current Medications Medication Drug Class(es) Dates Sig (Normalized) Sig (Original) aspirin 81 mg delayed release oral tablet (9 sources) Platelet Aggregation Inhibitor, Nonsteroidal Anti-inflammatory Drug take 1 tablet by mouth in the morning aspirin 81 MG EC tablet Take 81 mg by mouth in the morning. Active calcium polycarbophil 625 mg oral tablet (9 sources) take 1 tablet by mouth once [...] Active docusate sodium 100 mg oral capsule (9 sources) take 1 capsule by mouth once [...] daily. magnesium oxide 400 mg oral tablet (9 sources) Start: 024 End: 025 take 1 [...] Active ondansetron 4 mg disintegrating oral tablet (9 sources) Serotonin-3 Receptor Antagonist Start: take 1 [...] a day for 5 days Aug, Active Cidktntb-Bfx-Mi-FA ( 1 + IRON PO) (9 sources) Start: Ffamlsdj-Kzv-Jc-FA ( 1 + IRON PO) 01/20/2024 Active [...] by fredi th every twenty-four hours Biotin 44344 MCG 1 tablet Orally Once a day OTC Not-Taking/PRN take 1 tablet by fredi th every twenty-four hours Biotin 08751 MCG 1 tablet Orally Once a day OTC Not-Taking take 1 tablet by mouth once [facility]ia [place] car[place] y Biotin 53565 MCG 1 tablet Orally Once a day OTC Not-Taking BIOTIN ORAL Take by mouth q 24 HR. 0 Active take 1 tablet by mouth once [place] car[place] y Biotin 26399 MCG 1 tablet Orally Once a day [...] Comment on above: Take 1 tablet by [facility] once daily. Iodine (14 sources) Iodine [...] Probiotic OTC, daily Active lactobacillus rhamnosus gg [id number] unt oral capsule (1 source) Start: 5 End: 3 take 1 capsule by mouth once daily lactobacillus rhamnosus (CULTURELLE) 10 billion cell capsule Indications: Abdominal pain Take 1 capsule by mouth once daily. 30 capsule 2 04/30/2015 03/08/2023 Discontinued Comment on above: Take 1 capsule by mo [facility] once daily. [place] (14 sources) [...] Comment on above: Take 1 capsule by [facility] once daily. pantoprazole 20 mg [...] trimester] Onset: 05-14-2024 Episodic Other complications of (9 sources) Abnormal amniotic fluid; Translations: [Other abnormal [...] ] Onset: 05-14-2024 Episodic Residual codes; unclassified (9 sources) Gestation period, 27 weeks; Translations: [27 [...] UA Negative Negative - 4(70) +++ mg/dL [facility] Blood, UA Negative Negative - 50 Juanito/mcL [facility] Clarity, UA Clear [facility] Color, UA Yellow [facility] Glucose, UA Negative Negative - 2000(110) ++++ mg/dL [facility] Interpretation and review of laboratory results Abnormal [facility] Ketones, UA Negative Negative - 160(16) ++++ mg/dL [facility] Leukocytes, UA Trace Negative - 500+++ Ken/mcL [facility] Nitrite, UA Negative Negative - Positive [facility] pH, UA 6.5 5 - 9 [facility] Protein, UA Negative Negative - 2000(20) ++++ mg/dL [facility] Spec Grav, UA 1.015 1 - 1.03 [facility] Urobilinogen, UA 0.2 0.2 - 12 mg/dL [facility] TSHon 08-20-2024 TSH Qn 1.87 m[IU]/L Normal 0.34-5.60 [facility] Comment on above: Performed By: #### 2 197705 #### [facility] [address] [place] [address] Urinalysis macro (dipstick) panel (U)on 08-14-2024 Bilirubin, UA Negative Negative - 4(70) +++ mg/dL [facility] Blood, UA Negative Negative - 50 Juanito/mcL [facility] Healthcare Clarity, UA Clear [facility] Color, UA Yellow [facility] Glucose, UA Negative Negative - 1999(110) ++++ mg/dL [facility] Interpretation and review of laboratory results Abnormal [facility] Ketones, UA Negative Negative - 160(16) ++++ mg/dL [facility] Leukocytes, UA Trace Negative - 500+++ Ken/mcL [facility] Nitrite, UA Negative Negative - Positive [facility] pH, UA 6.5 5 - 9 [facility] Protein, UA Negative Negative - 1999(20) ++++ mg/dL [facility] Spec Grav, UA 1.015 1 - 1.03 [facility] Urobilinogen, UA 0.2 0.2 - 12 mg/dL [facility] Urinalysis macro (dipstick) panel (U)on 07-31-2024 Bilirubin, UA Negative Negative - 4(70) +++ mg/dL [facility] Blood, UA Negative Negative - 50 Juanito/mcL [facility] Healthcare Clarity, UA Clear [facility] Healthcare Color, UA Yellow [facility] Glucose, UA Negative Negative - 1999(110) ++++ mg/dL [facility] Interpretation and review of laboratory results Abnormal [facility] Ketones, UA Negative Negative - 160(16) ++++ mg/dL [facility] Leukocytes, UA Positive Negative - 500+++ Ken/mcL [facility] Comment on above: small Nitrite, UA Negative Negative - Positive [facility] pH, UA 6.5 5 - 9 [facility] Protein, UA Negative Negative - 1999(20) ++++ mg/dL [facility] Spec Grav, UA 1.010 1 - 1.03 [facility] Urobilinogen, UA 0.2 0.2 - 12 mg/dL [facility] CBC w/ Auto Diffon 4 Basophils/100 WBC (Bld) 0.4 % Normal 0.0-2.0 [facility] Comment on above: Performed By: #### 2 107515 #### [facility] [address] [place] [address] Basophils/Leukocyt es Auto (Bld) [Pure # fraction] 0.0 E9/L Normal 0.0-0.2 [facility] Comment on above: Performed By: #### 2 606567 #### [facility] [address] [place] [address] Eosinophils (Bld) [#/Vol] 0.2 E9/L Normal 0.0-0.5 [facility] Comment on above: Performed By: #### 2 258046 #### [facility] [address] [place] [address] Eosinophils/100 WBC (Bld) 2.9 % Normal 0.0-8.0 [facility] Comment on above: Performed By: #### 2 244502 #### [facility] [address] [place] [address] Erythrocyte distribution width (RBC) [Ratio] 13.6 % Normal 10.9-14.2 [facility] Comment on above: Performed By: #### 2 459677 #### [facility] [address] [place] [address] Hematocrit (Bld) [Volume fraction] 37.3 % Normal 34.0-46.0 [facility] Comment on above: Performed By: #### 2 943927 #### [facility] [address] [place] [address] Hemoglobin (Bld) [Mass/Vol] 12.8 g/dL Normal 12.0-16.0 [facility] Comment on above: Performed By: #### 2 401564 #### [facility] [address] [place] [address] Lymphocytes (Bld) [#/Vol] 1.9 E9/L Normal 1.0-4.0 [facility] Comment on above: Performed By: #### 2 759552 #### [facility] [address] [place] [address] Lymphocytes/100 WBC (Bld) 24.0 % Normal 14.0-50.0 [facility] Comment on above: Performed By: #### 2 233305 #### [facility] [address] [place] [address] MCH (RBC) [Entitic mass] 30.5 pg Normal 27.0-34.0 [facility] Comment on above: Performed By: #### 2 594283 #### [facility] [address] [place] [address] MCHC (RBC) [Mass/Vol] 34.2 g/dL Normal 31.4-36.0 [facility] Comment on above: Performed By: #### 2 129796 #### [facility] [address] [place] [address] MCV (RBC) [Entitic vol] 89.0 fL Normal 80.0-100.0 [facility] Comment on above: Performed By: #### 2 808526 #### [facility] [address] [place] [address] Monocytes (Bld) [#/Vol] 0.4 E9/L Normal 0.2-1.0 [facility] Comment on above: Performed By: #### 2 853827 #### [facility] [address] [place] [address] Neutrophils (Bld) [#/Vol] 5.5 E9/L Normal 2.0-7.5 [facility] Comment on above: Performed By: #### 2 788743 #### [facility] [address] [place] [address] Neutrophils/100 WBC (Bld) 67.8 % Normal 36.0-75.0 [facility] Comment on above: Performed By: #### 2 677531 #### [facility] [address] [place] [address] Platelet mean volume (Bld) [Entitic vol] 8.3 fL Normal 6.4-10.8 [facility] Comment on above: Performed By: #### 2 161571 #### [facility] [address] [place] [address] [place] [address] Platelets (Bld) [#/Vol] 267.0 E9/L Normal 150.0-500.0 [facility] Comment on above: Performed By: #### 2 302351 #### [facility] [address] [place] [address] RBC (Bld) [#/Vol] 4.2 E12/L Low 4.3-5.9 [facility] Comment on above: Performed By: #### 2 907388 #### [facility] [address] [place] [address] WBC corrected for nucl RBC Auto (Bld) [#/Vol] 8.0 E9/L Normal 4.0-11.0 [facility] Comment on above: Performed By: #### 2 305222 #### [facility] [address] [place] [address] Free T4on 07-23-2024 Free T4 [Mass/Vol] 0.57 ng/dL Low 0.58-1.64 [facility] Comment on above: Performed By: #### 2 115378 #### [facility] [address] [place] [address] Lyteson 07-23-2024 Anion gap [Moles/Vol] 12 mmol/L Normal 6-16 [facility] Comment on above: Performed By: #### 2 538151 #### [facility] [address] [place] [address] Chloride [Moles/Vol] 105 mmol/L Normal 101-111 [facility] Comment on above: Performed By: #### 2 910981 #### [facility] [address] [place] [address] CO2 [Moles/Vol] 24 mmol/L Normal 21-31 [facility] Comment on above: Performed By: #### 2 847838 #### [facility] [address] [place] [address] Potassium [Moles/Vol] 3.5 mmol/L Normal 3.5-5.3 [facility] Comment on above: Performed By: #### 2 788670 #### [facility] [address] [place] [address] Sodium [Moles/Vol] 137 mmol/L Normal 135-145 [facility] Comment on above: Performed By: #### 2 137742 #### [facility] [address] [place] [address] TSHon 07-23-2024 TSH Qn 2.26 m[IU]/L Normal 0.34-5.60 [facility] Comment on above: Performed By: #### 2 081285 #### [facility] [address] [place] [address] CMPon 06-25-2024 Albumin [Mass/Vol] 3.6 g/dL Normal 3.3-5.0 [facility] Comment on above: Performed By: #### 2 151205 #### [facility] [address] [place] [address] Albumin/Globulin (S) [Mass conc ratio] 1.3 Normal 1.1-2.2 [facility] Comment on above: Performed By: #### 2 160472 #### [facility] [address] [place] [address] ALP [Catalytic activity/Vol] 63 Int._Unit/L Normal 21-98 [facility] Comment on above: Performed By: #### 2 820139 #### [facility] [address] [place] [address] ALT No additional P-5'-P [Catalytic activity/Vol] 13 Int._Unit/L Normal 6-46 [facility] Comment on above: Performed By: #### 2 502736 #### [facility] [address] [place] [address] Anion gap [Moles/Vol] 10 mmol/L Normal 6-16 [facility] Comment on above: Performed By: #### 2 506160 #### [facility] [address] [place] [address] AST [Catalytic activity/Vol] 12 Int._Unit/L Normal 5-43 [facility] Comment on above: Performed By: #### 2 458108 #### [facility] [address] [place] [address] Bilirubin [Mass/Vol] 0.7 mg/dL Normal 0.0-1.1 [facility] Comment on above: Performed By: #### 2 981987 #### [facility] [address] [place] [address] Calcium [Mass/Vol] 8.6 mg/dL Low 8.9-11.1 [facility] Comment on above: Performed By: #### 2 114708 #### [facility] [address] [place] [address] Chloride [Moles/Vol] 104 mmol/L Normal 101-111 [facility] Comment on above: Performed By: #### 2 269309 #### [facility] [address] [place] [address] CO2 [Moles/Vol] 25 mmol/L Normal 21-31 [facility] Comment on above: Performed By: #### 2 777407 #### [facility] [address] [place] [address] Creatinine [Mass/Vol] 0.4 mg/dL Low 0.5-1.3 [facility] Comment on above: Performed By: #### 2 161042 #### [facility] [address] [place] [address] Globulin (S) [Mass/Vol] 2.8 g/dL Normal 1.4-4.0 [facility] Comment on above: Performed By: #### 2 746541 #### [facility] [address] [place] [address] Glucose [Mass/Vol] 97 mg/dL Normal 55-199 [facility] Comment on above: Performed By: #### 2 040450 #### [facility] [address] [place] [address] Potassium [Moles/Vol] 3.4 mmol/L Low 3.5-5.3 [facility] Comment on above: Performed By: #### 2 649545 #### [facility] [address] [place] [address] Protein [Mass/Vol] 6.4 g/dL Normal 6.0-7.8 [facility] Comment on above: Performed By: #### 2 026643 #### [facility] [address] [place] [address] Sodium [Moles/Vol] 136 mmol/L Normal 135-145 [facility] Comment on above: Performed By: #### 2 334186 #### [facility] [address] [place] [address] Urea nitrogen [Mass/Vol] 8 mg/dL Normal 5-21 [facility] Comment on above: Performed By: #### 2 205619 #### [facility] [address] [place] [address] Urea nitrogen/Creatinin e [Mass ratio] 20 No Units Normal 10-20 [facility] Comment on above: Performed By: #### 2 840774 #### [facility] [address] [place] [address] TSHon 06-25-2024 TSH Qn 3.63 m[IU]/L Normal 0.34-5.60 [facility] Comment on above: Performed By: #### 2 502478 #### [facility] [address] [place] [address] eGFRon 06-25-2024 eGFR 142 mL/min/1.73 m2 Normal >=59 [facility] Comment on above: Order Comment: Order added by Discern Expert. Performed By: #### 1 [id number] #### [facility] [address] [place] [address] TSHon 05-31-2024 TSH Qn 1.99 m[IU]/L Normal 0.34-5.60 [facility] Comment on above: Performed By: #### 2 980428 #### [facility] [address] [place] [address] TSHon 05-01-2024 TSH Qn 1.54 m[IU]/L Normal 0.34-5.60 [facility] Comment on above: Performed By: #### 2 095474 #### [facility] [address] [place] [address] Consent for Treatmenton Consent for Treatment [id number] F Normal [facility] Physician Orderon 04-04-2024 Physician Order [id number]#[id number] FF Normal [facility] TSHon 04-04-2024 TSH Qn 2.73 m[IU]/L Normal 0.34-5.60 [facility] Comment on above: Performed By: #### 2 204754 #### [facility] [address] [place] [address] XR Spine Cervical 4 or 5 Vie [...] mGy = . DAP = . Normal [facility] XR Spine Thoracic 3 Viewson [...] mGy = . DAP = . Normal [facility] Physician Orderon 09-15-2023 Physician Order [id number] IFF Normal [facility] T4 Free SerPl-mCncon 023 Free T4 [Mass/Vol] 1.2 ng/dL Normal 0.9-1.7 [facility] Comment on above: Order Comment: Rozina men Type: BLOOD SPECIMEN Ordering Facility: [facility] Address: [address] [place] [address] Performed By: #### 3 024-7, 3016-3 #### [facility] CLIA [id number] [address] [place] [address] [place] TSH SerPl-aCncon 08-18-2023 TSH Qn 2.280 m[IU]/L Normal 0.270-4.200 [facility] Comment on above: Order Comment: Rozina florez Type: BLOOD SPECIMEN Ordering Facility: [facility] Address: [address] [place] [address] Result Comment: If t he patient is , TSH reference range varies by gestational period: First Trimester (weeks 9-12): 0.180-2.990 mIU/L Second Trimester: 0.110-3.980 mIU/L Third Trimester: 0.480-4.710 mIU/L Noe Ramon et al. A Practical Approach for the Verifications and Determination of Site- and Trimester-Specific Reference Intervals for Thyroid Function tests in . Thyroid, 2019:29:3:412-420. Gregor Banegas, et al. 2017 Guidelines of the [place] Thy[employer] for the Diagnosis and Management of Thyroid Disease during and the . Thyroid, 2017:27:3:315-389. Performed By: #### 3 024-7, 3016-3 #### [facility] CLIA [id number] [address] [place] [address] [place] Consent for Treatmenton Consent for Treatment [id number]: 127 [facility] US Renalon 07-08-2023 US Renal [...] Mendoza M.D. Transcribed by: MORENO Technologist: EMILY [facility] XR Abdomen 1 Viewon 07-08-20 [...] mGy = . DAP = . Normal [facility] Ambulatory Visit Summaryon 0 06-21-2023 Ambulatory Visit Summary EMMY DALE :2000 Visit Date:06/21/2023 Ambulatory Visit Instructions Your Diagnosis Urinary crystals Recurrent UTI Urethral stricture Gross hematuria Tests Performed Urnls Dip Stick Auto w/o Microscopy POC 55004 Your Care Team Attending Physician - SOBEIDA [...] URL When: Comments: will call pt. Where: [address] [place] [address] You Need to Complete the Following US Renal, *Est. 06/21/23 due within 1 months, Routine, Order for future visit, Transport Mode: Ambulatory, Reason: Other (please specify), Reason: Kidney Stones, No, Kidney stones, pp_set_radiology_subspec ialty, [facility] XR Abdomen 1 View, *Est. 06/21/23 due within 1 months, Routine, Order for future visit, Transport Mode: Ambulatory, Reason: Kidney stone, No, Kidney stones, pp_set_radiology_subspec ialty, [facility] Medications What How Much When Instructions Unchanged busPIRone (busPIRone 10 mg Tab) 2 times a day Contact prescribing physician if questions or concerns Unchanged levothyroxine (Synthroid 25 mcg(0.025 mg) Tab) Every day Contact prescribing physician if questions or concerns Test Results Urnls Dip Stick Auto w/o Microscopy POC 07222 (06/21/2023) Bilirubin Urine Dipstick - Negative Blood Urine Dipstick - Negative Glucose Urine Dipstick - Negative Ketones Urine Dipstick - Negative Leukocytes Urine Dipstick - Negative Nitrite Urine Dipstick - Negative Protein Urine Dipstick - Negative Specific [place] Urine Dipstick - 1.010 Urine Appearance Urine [...] ? 8 oz (237 mL) of milk, kmzdecw-albtavzxqwzw-gvo ry milk, and calcium-fortifiedfruit juice. Calcium-fortified means [...] wheat cereals. (more content not included)... Normal [facility] Patient Educationon 06-21-20 Patient Education [...] ? 8 oz (237 mL) of milk, kuryjfb-hxaskgenszqc-qkh ry milk, and calcium-fortifiedfruit juice. Calcium-fortified means [...] Spinach (cooked), rhubarb, beets, sweet potatoes, and Palestinian chard. ? Peanuts. ? Potato chips, wolof fries, and baked potatoes with skin on. ? Nuts and nut products. ? Chocolate. ? If you regularly take a diuretic medicine, make sure to eat at least 1 or 2 servings of fruits or vegetables that are high in potassium each day. These include: ? Avocado. ? Banana. ? [place], prune, carrot, or tomato juice. ? Baked [...] fish oil, or vitamin B6. ? Take dfdn-aoi-reqgkul and prescription medicines only as told by your health care provider. These include supplements. What foods should I limit? Limit your in (more content not included)... Normal [facility] Urology Office/Clinic Noteon 06-21-2023 Urology [...] Will send CORDELIA and KUB [place] [facility] to see if any persistent hydro/any remaining [...] Urnls Dip Stick Auto w/o Microscopy POC 01583 4. Gross hematuria (R31.0: Gross hematuria) CORDELIA [...] When Contact Information SOBEIDA THOMPSON PA-C, URL [address] [place] [address] Additional Instructions: will call pt. Patient Education [...] History Cystour (more content not included)... Normal [facility] Comment on above: Result Comment: Elec tronically Signed By: SOBEIDA THOMPSON PA-C.br\Date and Time Signed: 06/21/23 12:44 EDT\.br\Electronically Co-Signed By: Laura Lou.br\Date and Time Co-Signed: 06/21/23 12:25 EDT PAP [id number] 06-07-2023 Cytology report Cyto stain Doc (Cvx/Vag) Note Invalid Interpretation Code [facility] Comment on above: Result Comment: TEST S RESULT FLAG UNITS REF RANGE LAB Clinician Provided Cytology Information Source.............Endocervix No. of containers..01 ThinPrep Vial DIAGNOSIS: 01 NEGATIVE FOR INTRAEPITHELIAL LESION OR MALIGNANCY. Specimen adequacy: 01 Satisfactory for evaluation. Endocervical and/or squamous metaplastic cells (endocervical component) are present. Performed by: Clif Bolaños Owner Professional Engineer ([facility]) . 01 Note: Note 01 The Pap [...] High,A-Abnormal,AA-Critical Abnormal Performed at: 01 [facility] [address] [address] Lisa Ellington MD, Performed at: [facility] [address] [id number] MD Chandana Gonzalez Performed By: #### 3 [id number] ####[facility] [address] [place] [address] Consent for Treatmenton Consent for Treatment [id number]: 127 Normal [facility] Heart and Vascular Office/Cl inic [...] but unfortunately she was called by the sock liner and told that it was not working. [...] her Sy (more content not included)... Normal [facility] Comment on above: Result Comment: Elec tronically Signed By: SAMUEL VELAZQUEZ, Benjamin Lopez\.br\Date and Time Signed: 06/01/23 14:25 EDT PAP [id number] 06-01-2023 Collection Technique BRUSH-SPATULA Normal [facility] Comment on above: Performed By: #### 3 [id number] ####[facility] [address] [place] [address] Gynecological Body Site ENDOCERVIX Normal [facility] Comment on above: Performed By: #### 3 [id number] ####[facility] [address] [place] [address] Physician Orderon 06-01-2023 Physician Order [id number]#1.00CD :127 Normal [facility] Physician Order [id number]#1.00CD: 127 Normal [facility] C Urineon 05-27-2023 Bacteria identified [...] Locations R1: This test was performed at: [facility], [address] [place] [address], [address] , , Normal [facility] Comment on above: Performed By: #### 2 049295 ####[facility] [address] [place] [address] T4 Free SerPl-mCncon 023 Free T4 [Mass/Vol] 1.2 ng/dL Normal 0.9-1.7 [facility] Comment on above: Order Comment: Speci men Type: BLOOD SPECIMEN Ordering Facility[facility] Address: [address] [place] [address] Performed By: #### 3 024-7, 3016-3 #### [facility] CLIA [id number] [address] [facility] [id number] [place] S[place] TSH SerPl-aCncon 05-26-2023 TSH Qn 2.260 m[IU]/L Normal 0.270-4.200 [facility] Comment on above: Order Comment: Speci men Type: BLOOD SPECIMEN [facility]ing Facility[facility] Address: [address] [place] [address] Result Comment: If t he patient is , TSH reference range varies by gestational period: First Trimester (weeks 9-12): 0.180-2.990 mIU/L Second Trimester: 0.110-3.980 mIU/L Third Trimester: 0.480-4.710 mIU/L Noe Ramon et al. A Practical Approach for the Verifications and Determination of Site- and Trimester-Specific Reference Intervals for Thyroid Function tests in . Thyroid, 2019:29:3:412-420. Gregor Banegas, et al. 2017 Guidelines of the [place] Thyroid Association for the Diagnosis and Management of Thyroid Disease during and the . Thyroid, 2017:27:3:315-389. Performed By: #### 3 024-7, 3016-3 #### [facility] CLIA [id number] [address] OF [place] Consent for Treatmenton 05-01 Consent for Treatment [id number]: 127 Normal [facility] Physician Orderon 05-25-2023 Physician Order [id number]#[id number]:12 7 Normal [facility] Urinalysison 05-25-2023 Bacteria LM Ql (Urine sed) 2+ /HPF Abnormal Trace [facility] Comment on above: Performed By: #### 1 [id number] ####[facility] [address] [place] [address] Bilirubin Ql (U) Negative Normal Negative [facility] Comment on above: Performed By: #### 1 [id number] ####[facility] [address] [place] [address] Clarity (U) SL CLOUDY Abnormal Clear [facility] Comment on above: Performed By: #### 1 [id number] ####[facility] [address] [place] [address] Color (U) YELLOW Normal Yellow [facility] Comment on above: Performed By: #### 1 [id number] ####[facility] [address] [place] [address] Crystals LM Ql (Urine sed) Present Normal [facility] Comment on above: Performed By: #### 1 [id number] ####[facility] [address] [place] [address] Epithelial cells.squamous LM.HPF (Urine sed) [#/Area] 0-2 Normal 0-2 [facility] Comment on above: Performed By: #### 1 [id number] ####[facility] [address] [place] [address] Glucose Test strip (U) [Mass/Vol] Negative Normal Negative [facility] Comment on above: Performed By: #### 1 [id number] ####[facility] [address] [place] [address] Hemoglobin Ql (U) 2+ Abnormal Negative [facility] Comment on above: Performed By: #### 1 [id number] ####[facility] [address] [place] [address] Ketones (U) [Mass/Vol] Negative Normal Negative [facility] Comment on above: Performed By: #### 1 [id number] ####[facility] [address] [place] [address] [place].plasma/Lit hium.RBC (Bld) [Mass ratio] 0-3 Normal 0-3 [facility] Comment on above: Performed By: #### 1 [id number] ####[facility] [address] [place] [address] Mucus Ql (Urine sed) TRACE Normal [facility] Comment on above: Performed By: #### 1 [id number] ####[facility] [address] [place] [address] Nitrite Ql (U) Positive Abnormal Negative [facility] Comment on above: Performed By: #### 1 [id number] ####[facility] [address] [address] pH (U) 6.0 [pH] Invalid Interpretation Code 5.0-9.0 [facility] Comment on above: Performed By: #### 1 [id number] ####[address] [address] Protein (U) [Mass/Vol] Negative Normal Negative [facility] Comment on above: Performed By: #### 1 [id number] ####[address] [address] Specific gravity (U) [Rel density] 1.010 Invalid Interpretation Code 1.005-1.030 [facility] Comment on above: Performed By: #### 1 [id number] ####[place] [id number] Type of Urine collection method Clean Catch Normal [facility] Comment on above: Performed By: #### 1 [id number] ####[place] [id number] Urobilinogen Qn (U) 0.2 {Catarino'U}/dL Normal 0.0-1.0 [facility] Comment on above: Performed By: #### 1 [id number] ####[place] [id number] WBC Auto Ql (U) 1+ Abnormal Negative [facility] Comment on above: Performed By: #### 1 [id number] ####[address] [address] WBC LM.HPF (Urine sed) [#/Area] 26-30 Abnormal 0-5 [facility] Comment on above: Performed By: #### 1 [id number] ####[address] [address] Consent for Treatmenton 04-30 Consent for Treatment [id number]: 127 Normal [facility] Consent for Treatmenton Consent for Treatment [id number]: 127 Normal [facility] V[facility] Office/Cl inic [...] 1 month. (more content not included)... Normal [facility] Comment on above: Result Comment: Elec tronically Signed By: Samuel VELAZQUEZ, Benjamin Le.br\Date and Time Signed: 05/05/23 16:11 EDT Physician Orderon 05-05-2023 Physician Order [id number]#1.00CD :127 Normal [facility] Stress EKG Tracingson 2022 Stress EKG Tracings [id number]#1.00CD: 127 Normal [facility] Consent for Treatmenton 03-31 Consent for Treatment [id number]#1.00CD: 127 Normal [facility] T3Free SerPl-mCncon 04-06-20 23 Free T3 [Mass/Vol] 3.3 pg/mL Normal 2.3-4.1 [facility] Comment on above: Order Comment: Speci men Type: BLOOD SPECIMEN [facility] Address: [address] [place] [address] Performed By: #### 3 051-0, 3024-7, 3016-3 #### [facility] CLIA [id number] [address] [place] OF [place] T4 Free SerPl-mCncon 023 Free T4 [Mass/Vol] 1.4 ng/dL Normal 0.9-1.7 [facility] Comment on above: Order Comment: Specolivier florez Type: BLOOD SPECIMEN [facility]ing [facility] Address: [address] [place] [address] Performed By: #### 3 051-0, 3024-7, 3016-3 #### [facility] CLIA [id number] [address] [place] [address] OF SID THYROGLOBULIN ABon Thyroglobulin Ab Qn 1.8 [IU]/mL Normal <4.0 [facility] Comment on above: Order Comment: Rozina florez Type: BLOOD SPECIMEN [facility] Address: [address] [place] [address] Result Comment: The Thyroglobulin Antibody test was performed using the [employer] DXI paramagnetic particle chemiluminescent immunoassay method. Results obtained with different assay methods or kits cannot be used interchangeably. Performed By: #### T JASON #### [facility] CLIA [id number] [address] [place] [address] OF SID THYROID PEROXIDASE ANTIBODY BLOODon 04-06-2023 [place] Qn 4572.0 [IU]/mL High <5.6 [facility] Comment on above: Order Comment: Rozina florez Type: BLOOD SPECIMEN [facility] Address: [address] [place] [address] Result Comment: Thyr oid Peroxidase Antibody test is used as an aid in diagnosis of autoimmune thyroid disease. Clinical correlation is required. Performed By: #### M ICRO #### [facility] CLIA [id number] [address] [place] [address] [place] TSH SerPl-aCncon 04-06-2023 TSH Qn 6.050 m[IU]/L High 0.270-4.200 [facility] Comment on above: Order Comment: Rozina florez Type: BLOOD SPECIMENOrdering Facility: [facility] Address: [address] [place] [address] Result Comment: If t he patient is , TSH reference range varies by gestational period: First Trimester (weeks 9-12): 0.180-2.990 mIU/L Second Trimester: 0.110-3.980 mIU/L Third Trimester: 0.480-4.710 mIU/L Noe Ramon et al. A Practical Approach for the Verifications and Determination of Site- and Trimester-Specific Reference Intervals for Thyroid Function tests in . Thyroid, 2019:29:3:412-420. Gregor Banegas, et al. 2017 Guidelines of the [place] Thyroid Association for the Diagnosis and Management of Thyroid Disease during and the . Thyroid, 2017:27:3:315-389. Performed By: #### 3 051-0, 3024-7, 3016-3 ####[facility] [id number] [place] [id number] [facility] CNOVon 03-08-2023 CNOV Office Visit (ENDOLN ) -------- EMMY DALE ([id number]) 1 F Date Time Provider Department 03/08/23 [...] Arthritis Father in blood . was at [facility] when baby thought to be related [...] involuntary motions. (more content not included)... Normal [facility] Vital Signs Date Time Vital Sign Value Performing Clinician Facility 08-27-2024 08:50-0400 Body weight 104.33 kg [employer] DO Work Phone: [facility] 08-27-2024 08:50-0400 Diastolic blood pressure 68 mm[Hg] [facility] [employer] Ajith DO Work Phone: [facility] 08-27-2024 08:50-0400 Systolic blood pressure 110 mm[Hg] [employer] DO Work Phone: [facility] 08-14-2024 09:36-0400 Body weight 101.61 kg [employer] DO Work Phone: [facility] 08-14-2024 09:36-0400 Diastolic blood pressure 70 mm[Hg] [employer] DO Work Phone: [facility] 08-14-2024 09:36-0400 Systolic blood pressure 120 mm[Hg] Dami Ajith DO Work Phone: [facility] 07-31-2024 08:55-0400 Body weight 99.34 kg Dami Ajith DO Work Phone: [facility] 07-31-2024 08:55-0400 Diastolic blood pressure 68 mm[Hg] Dami Ajith DO Work Phone: [facility] 07-31-2024 08:55-0400 Systolic blood pressure 112 mm[Hg] Dami Ajith DO Work Phone: [facility] 09-15-2023 13:30-0500 Body height 162.56 cm Lyndon [employer] Other [employer] Other 09-15-2023 13:30-0500 Body mass index (BMI) [Ratio] 30.21 kg/m2 Lyndon [employer] Other [employer] Other 09-15-2023 13:30-0500 Body weight 79.83 kg Lyndon [employer] Other [employer] Other 09-15-2023 13:30-0500 Diastolic blood pressure 68 mm[Hg] Lyndon Matter [email or web address] Other [employer] Other 09-15-2023 13:30-0500 Respiratory rate 18 /min Lyndon [email or web address] Other [employer] Other 09-15-2023 13:30-0500 SaO2% (BldA) [Mass fraction] 99 % Lyndon Matter [email or web address] Other [employer] Other 09-15-2023 13:30-0500 Systolic blood pressure 118 mm[Hg] Lyndon [email or web address] Other [employer] Other 07-12-2023 09:15-0400 Body height 162.56 cm Lyndon [email or web address] Other [employer] Other 07-12-2023 09:15-0400 Body mass index (BMI) [Ratio] 29.86 kg/m2 Lyndon Easterwood Other [employer] Other 07-12-2023 09:15-0400 Body temperature 98.6 [degF] Lyndon [email or web address] Other [employer] Other 07-12-2023 09:15-0400 Body weight 78.93 kg Lyndon [email or web address] Other [employer] Other 07-12-2023 09:15-0400 Diastolic blood pressure 70 mm[Hg] Lyndon Easterwood Other [employer] Other 07-12-2023 09:15-0400 Respiratory rate 20 /min Lyndon Easterwood Other [employer] Other 07-12-2023 09:15-0400 SaO2% (BldA) [Mass fraction] 98 % Lyndon Easterwood Other [employer] Other 07-12-2023 09:15-0400 Systolic blood pressure 112 mm[Hg] Lyndon Easterwood Other [employer] Other 05-25-2023 17:30-0400 Body height 162.56 cm Lyndon Easterwood Other [employer] Other 05-25-2023 17:30-0400 Body mass index (BMI) [Ratio] 30.04 kg/m2 Lyndon Easterwood Other [employer] Other 05-25-2023 17:30-0400 Body temperature 98.2 [degF] Lyndon Easterwood Other [employer] Other 05-25-2023 17:30-0400 Body weight 79.38 kg Lyndon Easterwood Other [employer] Other 05-25-2023 17:30-0400 Diastolic blood pressure 72 mm[Hg] Lyndon Easterwood Other [employer] Other 05-25-2023 17:30-0400 Respiratory rate 20 /min Lyndon Joseerwood Other [employer] Other 05-25-2023 17:30-0400 SaO2% (BldA) [Mass fraction] 99 % Lyndon Joseerwood Other [employer] Other 05-25-2023 17:30-0400 Systolic blood pressure 110 mm[Hg] Lyndon Easterwood Other [employer] Other 03-08-2023 16:13-0400 Body weight 83.92 kg Martina Rodriguez MD, PhD Work Phone: [facility] 03-08-2023 16:13-0400 Diastolic blood pressure 76 mm[Hg] Martina Rodriguez MD, PhD Work Phone: [facility] 03-08-2023 16:13-0400 Systolic blood pressure 116 mm[Hg] Martina Rodriguez MD, PhD Work Phone: [facility] 08-05-2022 16:00-0400 Body height 162.56 cm Lyndon Joseerwood Other [employer] Other 08-05-2022 16:00-0400 Body mass index (BMI) [Ratio] 32.78 kg/m2 Lyndon Dalal Other [employer] Other 08-05-2022 16:00-0400 Body temperature 98 [degF] Lyndon Dalal Other [employer] Other 08-05-2022 16:00-0400 Body weight 86.64 kg Lyndon [email or web address] Other [employer] Other 08-05-2022 16:00-0400 Diastolic blood pressure 76 mm[Hg] Lyndon [email or web address] Other [employer] Other 08-05-2022 16:00-0400 Respiratory rate 20 /min Lyndon Dalal Other [employer] Other 08-05-2022 16:00-0400 SaO2% (BldA) [Mass fraction] 99 % Lyndon Dalal Other [employer] Other 08-05-2022 16:00-0400 Systolic blood pressure 122 mm[Hg] Lyndon Dalal Other [employer] Other Encounters Encounter Date Encounter Type Care Provider Facility Start: 09-03-2024 End: 09-03-2024 Bamboo flowsheet Dami Ajith DO Work Phone: [facility] Start: 09-03-2024 End: 09-03-2024 Bamboo flowsheet Dami Ajith DO Work Phone: [facility] Start: 08-27-2024 End: 08-27-2024 flow sheet Dami [...] End: 07-23-2024 ambulatory Dami R AJITH [facility] Start: 07-19-2024 End: 07-19-2024 ambulatory LELE ALEJO Not Available Start: 07-05-2024 End: 07-05-2024 ambulatory DAMI AJITH Not Available Start: 06-25-2024 End: 06-25-2024 ambulatory DAMI AJITH Not Available Start: 06-25-2024 End: 06-25-2024 ambulatory LELE ALEJO [facility] Start: 06-12-2024 End: 06-12-2024 ambulatory DAMI R AJITH [facility] Start: 06-04-2024 End: 06-04-2024 ambulatory LELE ALEJO Not Available Start: 05-14-2024 End: 05-14-2024 ambulatory DAMI R AJITH [facility] Start: 05-08-2024 End: 05-08-2024 ambulatory DAMI AIJTH Not Available Start: 04-09-2024 End: 04-09-2024 ambulatory DAMI AJITH Not Available Start: 04-04-2024 ambulatory Dami R AJITH Facility: [facility] Start: 03-12-2024 End: 03-12-2024 ambulatory DAMI AJITH Not Available Start: 02-24-2024 End: 02-24-2024 ambulatory DAMI AJITH Not Available Start: 12-04-2023 End: 12-04-2023 ambulatory Lyndon Joseerwood Other [employer] Other Start: 12-04-2023 Encounter by [employer] r link Lyndon Joseerwood [facility] Start: 11-05-2023 End: 11-05-2023 ambulatory Lyndon Easterwood Other [employer] Other Start: 11-05-2023 Encounter by [employer] r link Lyndon Easterwood [facility] Start: 10-25-2023 End: 10-25-2023 ambulatory Lyndon J Joseerwood Facility:[facility] Start: 10-10-2023 End: 10-10-2023 ambulatory Lyndon Easterwood Other [employer] Other Start: 10-10-2023 Telephone encounter Lyndon Joseerwood [facility] Start: 09-26-2023 End: 09-26-2023 ambulatory Lyndon Easterwood Other [employer] Other Start: 09-26-2023 Telephone encounter Lyndon Easterwood [facility] Start: 09-18-2023 End: 09-18-2023 ambulatory Lyndon Joseerwood Other [employer] Other Start: 09-18-2023 Telephone encounter Lyndon Easterwood [facility] Start: 09-15-2023 End: 09-15-2023 ambulatory LYNDON JOSEERWOOD [facility] [employer] Other Start: 09-15-2023 Office outpatient visit 25 minutes Lyndon Easterwood [facility] Start: 08-18-2023 End: 08-18-2023 ambulatory LYNDON YOSELIN Facility:[facility] Start: 08-05-2023 Get Medical Advice Martina Rodriguez MD, PhD Work Phone: Endocrinology Comment on above: lab orders Start: 07-22-2023 End: 07-22-2023 ambulatory Lyndon Eufemiawood Other [employer] Other Start: 07-22-2023 Telephone encounter Lyndon Fallwood [facility] [employer] Start: 07-12-2023 End: 07-12-2023 ambulatory Lyndon Dalal Other [employer] Other Start: 07-12-2023 Office outpatient visit 25 minutes Lyndon Joseerwood [facility] Start: 07-12-2023 Telephone encounter Lyndon Easterwood [facility] Start: 07-08-2023 End: 07-08-2023 ambulatory SOBEIDA THOMPSON Facility:[facility] Start: 06-27-2023 End: 06-27-2023 ambulatory Lyndon Joseerwood Other [employer] Other Start: 06-27-2023 Telephone encounter Lyndon Easterwood [facility] Start: 06-21-2023 End: 06-21-2023 ambulatory SOBEIDA THOMPSON Facility:[facility] Start: 06-01-2023 End: 06-01-2023 ambulatory Benjamin BAKER Facility:[facility] Start: 06-01-2023 End: 06-01-2023 ambulatory Bill Kat Facility:[facility] Start: 05-26-2023 End: 05-26-2023 ambulatory LYNDON DALAL Facility:[facility] Start: 05-25-2023 End: 05-25-2023 ambulatory [facility] [employer] Other Start: 05-25-2023 [facility] Start: 05-17-2023 End: 05-17-2023 ambulatory Benjamin BAKER Facility[facility] Start: 05-05-2023 End: 05-05-2023 ambulatory Benjamin BAKER Facility:[facility] Start: 04-15-2023 End: 04-15-2023 ambulatory Benjamin BAKER Facility:[facility] Start: 04-06-2023 End: 04-06-2023 ambulatory MARTINA RODRIGUEZ Facility:[facility] Start: 03-08-2023 End: 03-08-2023 ambulatory MARTINA RODRIGUEZ Facility:[facility] Start: 03-08-2023 End: 03-08-2023 Patient encounter procedure Martina Rodriguez MD, PhD Work Phone: Endocrinology Comment on above: Vikki's thyroidi tis (Primary Dx) Start: 02-28-2023 End: 02-28-2023 [facility] [employer] Other Start: 02-28-2023 Telephone encounter Lyndon Dalal [facility] Start: 02-21-2023 End: 02-21-2023 ambulatory 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 [place] Work Phone: Start: 08-09-2022 End: 08-09-2022 ambulatory Lyndon Dalal Other [employer] Other Start: 08-09-2022 Telephone encounter Lyndon Dalal [facility] Start: 08-05-2022 End: 08-06-2022 Emergency department patient visit Lyndon Dalal Facility:[facility] Start: 08-05-2022 End: 08-05-2022 ambulatory Lyndon Dalal Other [employer] Other Start: 08-05-2022 Office outpatient visit 40 minutes Lyndon Dalal [facility] Procedures Date Procedure Procedure Detail [...] AM EST Routine [facility] [address] [place] [address] Dami Canseco DO [address] [place] [address] [facility] Start: 09-10-2024 End: 09-10-2024 Patient encounter procedure 09/10/2024 8:40 AM EST Routine [facility] [address] [place] [address] Dami Canseco, DO [address] [place] [address] [facility] Start: 09-03-2024 End: 09-03-2024 Patient encounter procedure 09/03/2024 8:40 AM EST Routine [facility] [address] [facility] [place] [id number] Dami Canseco, DO [address] [place] [address] [facility] Start: 08-27-2024 End: 08-27-2024 Patient encounter procedure 08/27/2024 8:40 AM EDT Routine [facility] [address] [place] [place] [id number] Dami Canseco, DO [address] [place] [address] [facility] Start: 08-14-2024 End: 08-14-2024 Patient encounter procedure [facility] Comment on above: Arrived Start: 08-06-2024 End: 08-06-2024 Professional / ancillary services management 08/06/2024 8:00 AM EDT Ancillary Procedure [facility] [address] [place] [place] [phone] [facility] Start: 07-31-2024 End: 07-31-2024 Patient encounter procedure 07/31/2024 8:50 AM EDT Routine [facility] [address] [facility] [place] [phone] Dami Canseco, DO [address] [place], [place] [id number] Arrived [facility] Comment on above: Arrived Start: 07-01-2024 Influenza vaccination Influenza Vacc ine (#1) [facility] Start: 08-08-2023 End: 10-08-2023 Thyrotropin [Units/volume] in Serum or Plasma TSH BLD Lab Routine Vikki's thyroiditis Expected: 08/08/2023, Expires: 10/08/2023 [facility] Work Phone: Comment on above: Expected: 08/08/2023 , Expires: 10/08/2023 Start: 08-08-2023 End: 10-08-2023 Thyroxine (T4) free [Mass/volume] in Serum or Plasma T4 FREE/FREE THYROX Lab Routine Vikki's thyroiditis Expected: 08/08/2023, Expires: 10/08/2023 [facility] Work Phone: Comment on above: Expected: 08/08/2023 , Expires: 10/08/2023 Start: 07-07-2023 Urine microalbumin profile [facility] Start: 07-01-2023 Covid-19 Vaccine () Covid-19 Vaccine () [facility] Start: 07-01-2023 Influenza vaccination Influenza Vacc ine (#1) [facility] Start: 03-31-2023 End: 05-31-2023 Thyroglobulin Ab [Units/volume] in Serum or Plasma THYROGLOBULIN AB Lab Routine Vikki's thyroiditis Expected: 03/31/2023, Expires: 05/31/2023 [facility] Work Phone: Comment on above: Expected: 03/31/2023 , Expires: 05/31/2023 Start: 03-31-2023 End: 05-31-2023 THYROID PEROXIDASE ANTIBODY BLOOD THYROID PEROXIDASE ANTIBODY BLOOD Lab Routine Vikki's thyroiditis Expected: 03/31/2023, Expires: 05/31/2023 [facility] Work Phone: Comment on above: Expected: 03/31/2023 , Expires: 05/31/2023 Start: 03-31-2023 End: 05-31-2023 Thyrotropin [Units/volume] in Serum or Plasma TSH BLD Lab Routine Vikki's thyroiditis Expected: 03/31/2023, Expires: 05/31/2023 [facility] Work Phone: Comment on above: Expected: 03/31/2023 , Expires: 05/31/2023 Start: 03-31-2023 End: 05-31-2023 Thyroxine (T4) free [Mass/volume] in Serum or Plasma T4 FREE/FREE THYROX Lab Routine Vikki's thyroiditis Expected: 03/31/2023, Expires: 05/31/2023 [facility] Work Phone: Comment on above: Expected: 03/31/2023 , Expires: 05/31/2023 Start: 03-31-2023 End: 05-31-2023 Triiodothyronine (T3) Free [Mass/volume] in Serum or Plasma T3 FREE BLD Lab Routine Vikki's thyroiditis Expected: 03/31/2023, Expires: 05/31/2023 [facility] Work Phone: Comment on above: Expected: 03/31/2023 , Expires: 05/31/2023 Start: 10-31-2022 DEPRESSION ASSESSMENT DEPRESSION ASS ESSMENT [facility] Start: 2021 PAP TESTING PAP TESTING [facility] Start: 02-02-2021 COVID-19 VACCINE (3 - Booster for Pfizer series) COVID-19 VACCINE (3 - Booster for Pfizer series) [facility] Start: 2018 CHLAMYDIA SCREENING (18-24) CHLAMYDIA SCREENING (18-24) [facility] Start: 2018 GC (GONORRHEA) SCREE MICHELLE (18-24) GC (GONORRHEA) SCREENING (18-24) [facility] Start: 2018 HEPATITIS C SCREENING HEPATITIS C SC REENING [facility] Start: 2018 HIV SCREENING HIV SCREENING [facility] Start: 2016 Meningococcal B Vacc ine: Consider Based On Risk (2 of 2 - Risk Bexsero 2-dose series) Meningococcal B Vaccine: Consider Based On Risk (2 of 2 - Risk Bexsero 2-dose series) [facility] Start: 2016 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 (2 of 2 - Risk Bexsero 2-dose series) MENINGOCOCCAL B: Consider based on risk (2 of 2 - Risk Bexsero 2-dose series) [facility] Start: 2014 PEDS TO ADULT TRANSI TION ANNUAL ASSESSMENT PEDS TO ADULT TRANSITION ANNUAL ASSESSMENT [facility] Start: 2012 PEDS TO ADULT TRANSI TION INITIAL DISCUSSION PEDS TO ADULT TRANSITION INITIAL DISCUSSION [facility] Immunizations Immunization Date Immunization Notes Care Provider Fa joshua 07-19-2022 influenza, injectabl e, quadrivalent, contains preservative Lyndon Easterwood Other [employer] Other 07-19-2022 influenza virus vaccine, unspecified formulation Martina Rodriguez MD, PhD Work Phone: [facility] 12-08-2020 Do not use COVID-19 Pfizer 2 dose Lyndon Easterwood Other [employer] Other 11-17-2020 Do not use COVID-19 Pfizer 2 dose Lyndon Easterwood Other [employer] Other 07-31-2020 influenza, injectabl e, quadrivalent, contains preservative Lyndon Easterwood Other [employer] Other 10-18-2016 influenza, injectabl e, quadrivalent, contains preservative Martina Rodriguez MD, PhD Work Phone: [facility] 08-04-2015 influenza, injectabl e, quadrivalent, contains preservative Martina Rodriguez MD, PhD Work Phone: [facility] 04-23-2014 human papilloma viru s vaccine, quadrivalent Martina Rodriguez MD, PhD Work Phone: [facility] 09-29-2013 human papilloma viru s vaccine, quadrivalent Martina Rodriguez MD, PhD Work Phone: [facility] 07-07-2013 human papilloma viru s vaccine, quadrivalent Martina Rodriguez MD, PhD Work Phone: [facility] 07-07-2013 meningococcal polysaccharide (groups A, C, Y and W-135) diphtheria toxoid conjugate vaccine (MCV4P) Martina Rodriguez MD, PhD Work Phone: [facility] Work Phone: 07-07-2013 tetanus toxoid, redu ollie diphtheria toxoid, and acellular pertussis vaccine, adsorbed Martina Rodriguez MD, PhD Work Phone: [facility] 08-04-2009 influenza virus vaccine, unspecified formulation Martina Rodriguez MD, PhD Work Phone: [facility] 07-05-2008 hepatitis A vaccine, unspecified formulation Martina Rodriguez MD, PhD Work Phone: [facility] 09-09-2007 influenza virus vaccine, unspecified formulation Martina Rodriguez MD, PhD Work Phone: [facility] Work Phone: 06-19-2007 hepatitis A vaccine, unspecified formulation Martina Rodriguez MD, PhD Work Phone: [facility] 06-19-2007 varicella virus vaccine Parth Rodriguez MD, PhD Work Phone: [facility] 09-14-2006 influenza virus vaccine, unspecified formulation Martina Rodriguez MD, PhD Work Phone: [facility] 05-13-2006 diphtheria, tetanus toxoids and acellular pertussis vaccine Martina Rodriguez MD, PhD Work Phone: [facility] Work Phone: 05-13-2006 measles, mumps and rubella virus vaccine Martina Rodriguez MD, PhD Work Phone: [facility] Work Phone: 05-13-2006 poliovirus vaccine, inactivated Martina Rodriguez MD, PhD Work Phone: [facility] Work Phone: 05-13-2006 varicella virus vaccine Parth Rodriguez MD, PhD Work Phone: [facility] Work Phone: 07-26-2005 influenza virus vaccine, unspecified formulation Martina Rodriguez MD, PhD Work Phone: [facility] Work Phone: 07-30-2004 influenza virus vaccine, unspecified formulation Martina Rodriguez MD, PhD Work Phone: [facility] Work Phone: 06-30-2002 diphtheria, tetanus toxoids and acellular pertussis vaccine Martina Rodriguez MD, PhD Work Phone: [facility] Work Phone: 06-30-2002 poliovirus vaccine, inactivated Martina Rodriguez MD, PhD Work Phone: [facility] Work Phone: 04-04-2002 haemophilus influenz ae type b vaccine, HbOC conjugate Martina Rodriguez MD, PhD Work Phone: [facility] Work Phone: 04-04-2002 measles, mumps and rubella virus vaccine Martina Rodriguez MD, PhD Work Phone: [facility] Work Phone: 12-16-2001 hepatitis B vaccine, pediatric or pediatric/adolescent dosage Martina Rodriguez MD, PhD Work Phone: [facility] Work Phone: 12-16-2001 pneumococcal conjuga te vaccine, 7 valent Martina Rodriguez MD, PhD Work Phone: [facility] Work Phone: 09-30-2001 pneumococcal conjuga te vaccine, 7 valent Martina Rodriguez MD, PhD Work Phone: [facility] Work Phone: 06-24-2001 diphtheria, tetanus toxoids and acellular pertussis vaccine Martina Rodriguez MD, PhD Work Phone: [facility] Work Phone: 06-24-2001 haemophilus influenz ae type b vaccine, HbOC conjugate Martina Rodriguez MD, PhD Work Phone: [facility] Work Phone: 06-24-2001 pneumococcal conjuga te vaccine, 7 valent Martina Rodriguez MD, PhD Work Phone: [facility] Work Phone: 04-12-2001 diphtheria, tetanus toxoids and acellular pertussis vaccine Martina Rodriguez MD, PhD Work Phone: [facility] Work Phone: 04-12-2001 haemophilus influenz ae type b vaccine, HbOC conjugate Martina Rodriguez MD, PhD Work Phone: [facility] Work Phone: 04-12-2001 poliovirus vaccine, inactivated Martina Rodriguez MD, PhD Work Phone: [facility] Work Phone: 02-03-2001 diphtheria, tetanus toxoids and acellular pertussis vaccine Martina Rodriguez MD, PhD Work Phone: [facility] Work Phone: 02-03-2001 haemophilus influenz ae type b vaccine, HbOC conjugate Martina Rodriguez MD, PhD Work Phone: [facility] Work Phone: 02-03-2001 poliovirus vaccine, inactivated Martina Rodriguez MD, PhD Work Phone: [facility] Work Phone: 2000 hepatitis B vaccine, pediatric or pediatric/adolescent dosage Martina Rodriguez MD, PhD Work Phone: [facility] Work Phone: 2000 hepatitis B vaccine, pediatric or pediatric/adolescent dosage Martina Rodriguez MD, PhD Work Phone: [facility] Work Phone: Payers Date Payer Category Payer Private Health Insurance [id number] 2024 Unknown [id number] 2023 Unknown [id number] 2022 Private Health Insurance [id number] 2022 Self-pay 2020 Private Health Insurance [id number] [id number] 2020 Private Health Insurance [id number]. [id number] 2000 Unknown [id number] 2.16.840.1.495147.3.579.2.727 2000 Unknown [id number] 2.16.840.1.063476.3.579.2.727 2000 Unknown [id number] 2.16.840.1.460295.3.579.2.727 2000 Unknown [id number] 2.16.840.1.054586.3.579.2.727 2000 Unknown [id number] 2.16.840.1.992442.3.579.2.727 2000 Unknown [id number] 2.16.840.1.505025.3.579.2.727 2000 Unknown [id number] 2.16.840.1.436496.3.579.2.727 2000 Unknown [id number] 2.16.840.1.559239.3.579.2.727 2000 Unknown [id number] 2.16.840.1.196677.3.579.2.727 2000 Unknown [id number] 2.16.840.1.504595.3.579.2.727 2000 Unknown [id number] 2.16.840.1.382709.3.579.2.727 2000 Unknown [id number] 2.16.840.1.397822.3.579.2.1286 2000 Unknown [id number] 2.16.840.1.646145.3.579.2.1286 2000 Unknown [id number] 2.16.840.1.022652.3.579.2.1286 2000 Unknown [id number] 2.16.840.1.321418.3.579.2.727 2000 Unknown [id number] 2.16.840.1.404797.3.579.2.727 2000 Unknown [id number] 2.16.840.1.234231.3.579.2.9 2000 Unknown [id number] 2.16.840.1.198556.3.579.2.9 2000 Unknown [id number] 2.16.840.1.193051.3.579.2.9 2000 Unknown [id number] 2.16.840.1.681348.3.579.2.9 2000 Unknown [id number] 2.16.840.1.878187.3.579.2.9 2000 Unknown [id number] 2.16.840.1.998618.3.579.2.9 2000 Unknown [id number] 2.16.840.1.597540.3.579.2.9 2000 Unknown [id number] 2.16.840.1.436189.3.579.2.9 2000 Unknown [id number] 2.16.840.1.762535.3.579.2.9 2000 Unknown [id number] 2.16.840.1.335614.3.579.2.9 2000 Unknown [id number] 2.16.840.1.142151.3.579.2.1259 Private Health Insurance [facility] [id number] Unknown [id number] 2.16.840.1.249065.3.579.2.531 Unknown [facility] Employees [id number] Unknown [id number] 2.16.840.1.900198.3.579.2.531 Social History Date Type Detail Facility Start: 03-08-2023 End: 07-05-2024 Sex Assigned At [email or web address] Other Start: 09-27-2014 End: 07-05-2024 Tobacco smoking status NHIS Never smoked tobacco [facility] History of tobacco use Passive smoker [facility] Start: 03-08-2023 Alcohol intake Not Asked [facility] Start: 2000 Sex Assigned At Not on file C [facility] Start: 2000 Sex Assigned At Female F [facility] Start: 03-08-2023 End: 07-05-2024 History of Social function [facility] Start: 07-05-2024 Tobacco use and exposure Smokeless tobacco non-user [facility] Start: 07-19-2024 End: 08-27-2024 Alcoholic beverage intake Ex-drinker (finding) [facility] Start: 01-06-2024 [facility] Clinical Notes 09-09-2009 to 08-27-2024 Rhoda Ortiz LPN - 08/27/2024 8:40 AM EDTMar Ortega, BIT SETTER - 08/14/2024 8:40 AM NIDIA Stephens - [...] 4 mg, Oral, Every 6 hours PRN Qubatylp-Zky-Kw-FA ( 1 + IRON PO) ALLERGIES Allergies [...] nursing note reviewed. Exam conducted with a risk consulting treasury director present. Vitals: There is no height or [...] Dami Canseco DO documented in this encounter [facility] 08-14-2024 History of Presen t illness Narrative [...] 4 mg, Oral, Every 6 hours PRN Kjsatgbx-Gcb-Ek-FA ( 1 + IRON PO) ALLERGIES Allergies [...] problems Maternal Grandfather Ray Cancer Maternal Grandmother Lia Stroke Maternal Grandmother Ila Thyroid disease Maternal [...] nursing note reviewed. Exam conducted with a risk consulting treasury director present. Vitals: There is no height or [...] Dami Canseco DO documented in this encounter [facility] 07-31-2024 History of Presen t illness [...] 4 mg, Oral, Every 6 hours PRN Sqbgnjir-Oqb-Hi-FA ( 1 + IRON PO) ALLERGIES Allergies [...] Dami Canseco DO documented in this encounter [facility] 09-15-2023 Evaluation note Encounter Date Diagnosis [...] in office today for physical therapy to [facility]. Discussed continuation of cpnp-azo-vcqsfsq medications as needed. Take muscle relaxer as [...] in office today for physical therapy to [facility] through [facility]. Discussed continuation of xksl-rmq-ifbadef medications as needed. Take muscle relaxer as [...] that were not corrected during review process. [facility] Other 09-12-2023 Evaluation note* Encounter Date Diagnosis [...] that were not corrected during review process. [facility] Other 07-26-2023 Evaluation note* Encounter Date Diagnosis [...] that were not corrected during review process. [facility] Other 06-18-2023 NoteEchocardiology Procedure Exam Date/Time Accession # Ordering ECG Stress Exercise 04/15/2023 08:43 EDT [id number] Benjamin Baker MD CPT code 52593 Reason for Exam (ECG Stress Exercise) I95.1;Dizziness [...] Benjamin Baker MD Transcribed by: angela Technologist: Maliha [facility]06-16-2023 Note Echocardiology Procedure Exam Date/Time Accession # Ordering Echo Transthoracic 04/15/2023 09:42 EDT [id number] Benjamin Baker MD Complete CPT code 53741 [id number] Reason for Exam (Echo Transthoracic Complete) I95.9;Hypotension Report [facility] [address] [place] [address] Adult Echocardiogram Report Name: EMMY DALE Study Date: 04/15/2023 09:02 AM BP: 105/71 mmHg Patient Location: [facility] HR: 75 : 2000 Gender: Female Height: 63 in Age: 22 yrs Ethnicity: WHT Weight: 178 lb Reason For Study: Hypotension BSA: 1.8 m2 History: No cardiac history per patient Ordering Physician: Samuel^Benjamin^John Referring Physician: Benjamin Baker Performed By: Jonelle Alvarez, [facility] Interpretation Summary Ejection Fraction = 60-65%. [...] (Electronic Signature): 04/15/2023 5:35 pm Signed by: Benjamni Baker MD Transcribed by: YOVANI Technologist: [facility]05-09-2023 Note HNO ID: [id number] Author: Martina Rodriguez MD, PhD Service: ? [...] Arthritis Father in blood . was at [facility] when baby thought to be related [...] Plan: Will monitor thyroid (more content not included)...[facility] 03-08-2023 History of Present illness Narrative* Martina [...] Arthritis Father in blood . was at [facility] when baby thought to be related [...] Martina Rodriguez MD, PhD [facility]* Encounter Date Diagnosis Assessment [...] I would recommend referral to a different town clerk. Patient does have the name of an town clerk that she would like referred to. We will put that referral in today. Dr. Roger Kim - [facility] Endocrinology, [facility] February, Dizziness (ICD-10 - R42) Discussed her [...] that were not corrected during review process. [employer] [facility] Other 10-06-2022 Evaluation note* Encounter Date Diagnosis [...] to ER, I highly recommend she call [employer] BULLDOZ[employer] OPER[employer] the second she leaves our office to follow-up.She needs to let them know about her concerns.I explained to her that even though she may assume that her F[employer] BULLDOZER OPERATOR will not listen her , I still want her to reach out to that office and explained to them her current concerns. She wants to know what the immediate treatment would be and work-up for spinal headache and possible leak however I cannot provide her with this information as I am not FINE GR[employer]DOZER OPERATOR. Jul, Hip pain (ICD-10 - M25.559) [...] I did discuss with her concerns over qrlt-ibo-nzhlmvq medications during breast-feeding. Discussed recommendations currently and please bring this up to FINE GRADE BULLDOZER OPERATOR as well for further recommendations. Does [...] I would like her to follow-up with [employer] B[employer]DOZER OPERATOR or go to ER regarding this dizziness and we can follow-up in office after. If nothing comes from an FINE GRADE BULLDOZER OPERATOR/spinal headache/spinal leak standpoint, we can order [...] that were not corrected during review process. [facility] Other 11-10-2009 History of Past illness Narrative* Problem Noted Date Resolved Date Constipation 09/09/2009 08/28/2014 documented as of this encounter (statuses as of 03/09/2023) [facility]11-10-2009 History of Past illness Narrative* Problem Noted Date Diagnosed Date Resolved Date Constipation 09/09/2009 08/28/2014 documented as of this encounter (statuses as of 08/09/2023) [facility]No InformationNortP[facility] [employer] Other Evaluation note* Diagnosis Vikki's thyroiditis- Primary Chronic lymphocytic thyroiditis documented in this encounter [facility] noteNo assessment information availableSelect [facility] Work Phone: Evaluation note* Diagnosis Vikki's thyroiditis- Primary Chronic lymphocytic thyroiditis [facility] Diagnosis 31 weeks gestation of Third trimester state, incidental documented in this encounter [facility] HealthcareEvaluation note* Diagnosis 33 weeks gestation of Third trimester state, incidental documented in this encounter [facility] HealthcareEvaluation note* Diagnosis Third trimester state, incidental 35 weeks gestation of documented in this encounter [facility] HealthcareHistory general Narrative - Reported* Type Description Date Medical History Asthma Medical History Vasovagal syndrome- childhood (r esolved) Medical History Exercise-induced asthma Medical History Pityriasis rosea Medical History Tachycardia Medical History Vikki's thyroiditis Medical History Pre-eclampsia Surgical History [place] teeth extract 2017 Surgical History Vaginal childbirth 03/2022 Hospitalization History See surgical [employer] [facility] Other [employer] general Narrative - Reported* Type Description Date Medical History Exercise-induced asthma Medical History Pityriasis rosea Medical History Tachycardia Medical History Vikki's thyroiditis Medical History Asthma Medical History Pre-eclampsia Medical History Hypotension Surgical History [place] teeth extract 2016 Surgical History Vaginal childbirth 03/2022 Hospitalization History See surgical hx [employer] [facility] Other Hoppit general Narrative - Reported* Type Description Date Medical History Exercise-induced asthma Medical History Pityriasis rosea Medical History Tachycardia Medical History Vikki's thyroiditis Medical History Asthma Medical History Pre-eclampsia Medical History Hypotension Medical History GERD (gastroesophageal reflux di sease) Surgical History [place] teeth extract 2017 Surgical History Vaginal childbirth 03/2022 Surgical History EGD/colonoscopy 2011 Hospitalization History See surgical [employer] [facility] Other [employer] general Narrative - Reported* Type Description Date Medical History Exercise-induced asthma Medical History Pityriasis rosea Medical History Tachycardia Medical History Vikki's thyroiditis Medical History Asthma Medical History Pre-eclampsia Medical History Hypotension Medical History GERD (gastroesophageal reflux di sease) Medical History Thyromegaly Surgical History [place] teeth extract 2017 Surgical History Vaginal childbirth 03/2022 Surgical History EGD/colonoscopy 2011 Hospitalization History See surgical [employer] Other Hoppit general Narrative - Reported* Type Description Date Medical History Exercise-induced asthma Medical History Pityriasis rosea Medical History Tachycardia Medical History Vikki's thyroiditis Medical History Asthma Medical History Pre-eclampsia Medical History Hypotension Medical History GERD (gastroesophageal reflux di sease) Medical History Thyromegaly Medical History Other idiopathic scoliosis, thor acic region Surgical History [place] teeth extract 2016 Surgical History Vaginal childbirth 03/2022 Surgical History EGD/colonoscopy 2011 Hospitalization History See surgical hx [employer] Other Summary Purpose Family History No Family [...] gastriti s with hemorrhage (K29.01) Referral Organization [facility] Less[employer] Referring Provider First Name Lyndon Referring Provider Last Name [facility] Referring Provider Specialty Nurse Pract itioner Referred Organization [facility] Gastroenterolo gy Referred Provider Patricio Urena Referred Address [address],[address] Referred Provider Specialty Gastroentero logy Referral Priority Routine General Notes Misti Vivas 023 10:08:56 AM >Received today. [facility] request us to fill out their form and fax to them. They will review the referral and call patient to schedule them. Referral was fax. Misti Vivas 07/12/2023 01:31:38 PM >Per telephone encounter, patient wants to try [facility] Gastro doctors. Sent P2P Reason *FU 03/08 Dr. Hawa Kim - [facility] Endocrinology, [facility]; [employer]- please send this note with 2 previous notes Diagnosis 1 Vikki's thyroidi tis (E06.3) Referral Organization [facility] [employer] Referring Provider First Name Lyndon Referring Provider Last Name [facility] Referring Provider Specialty Nurse Pract itioner Referred Organization [facility] Referred Address [address] [place], [place],[address] Referred Provider Specialty Endocrinolog y Referral Priority Routine General Notes Misti Vivas 023 01:21:05 PM >Received today and referral was fax with the [facility] Form. They will review and call patient to schedule Reason *FU 03/08 Dizzines s- TERRENCE; Please send this note with 2 previous notes Diagnosis 1 Dizziness (R42) Referral Organization [facility] makenzie Rivera Referring Provider First Name Lyndon Referring Provider Last Name [facility] Referring Provider Specialty Nurse Alfred barron Referred Organization [facility] Referred Provider Jose Dominguez Referred Address [address] [place], [place],[address] Referred Provider Specialty Neurology Referral Priority Routine [...] content) DATE CREATED AUTHOR 08/06/2022 [facility] DATE CREATED AUTHOR AUTHOR'S ORGANIZ ATION 08/20/2023 [facility] DATE CREATED AUTHOR AUTHOR'S ORGANIZ ATION 04/06/2024 [facility] DATE CREATED AUTHOR AUTHOR'S ORGANIZ ATION 05/03/2024 [facility] DATE CREATED AUTHOR AUTHOR'S ORGANIZ ATION 05/18/2024 [facility] DATE CREATED AUTHOR AUTHOR'S ORGANIZ ATION 06/14/2024 [facility] DATE CREATED AUTHOR AUTHOR'S ORGANIZ ATION 06/26/2024 [facility] DATE CREATED AUTHOR AUTHOR'S ORGANIZ ATION 07/07/2024 [facility] DATE CREATED AUTHOR AUTHOR'S ORGANIZ ATION 07/24/2024 [facility] DATE CREATED AUTHOR AUTHOR'S ORGANIZ ATION 07/29/2024 [facility] DATE CREATED AUTHOR AUTHOR'S ORGANIZ ATION 08/21/2024 [facility] DATE CREATED AUTHOR AUTHOR'S ORGANIZ ATION 08/27/2024 [facility] d[facility] Specialists EPIC REASON FOR VISIT [...] or prosecute any alcohol or drug abuse patient.[facility] the event this information is protected by the Federal Confidentiality of Alcohol and Drug Abuse Patient Records regulations: The Federal rules restrict any use of the information to criminally investigate or prosecute any alcohol or drug abuse patient.[facility] Care Teams (unrecognized sec tion and content) Milk Treater Relationship Specialty Start Date End Date Lyndon Dalal CNP [address] [address] PCP - General Family Medicine 03/08/23 Lyndon Dalal CNP [address] [address] Referring Family Medicine 03/04/23 Team Status: Active Member Role Status Dates Lyndon Dalal APRN Primary Care Provider Active Team Status: Inactive Member Role Status Dates Lyndon Dalal APRN Primary Care Provider, Attend ing Provider Active Milk Treater Relationship Specialty Start Date End Date Lyndon Dalal CNP [address] [address] PCP - General Family Medicine 03/08/23 Lyndon Dalal CNP [address] [address] Referring Family Medicine 03/04/23 Milk Treater Relationship Specialty Start Date End Date Ge Cloud MD [address] [phone] PCP - General Family [facility] 01/25/24 Milk Treater Relationship Specialty Start Date End Date Ge Cloud MD [address] [phone] PCP - General Family [facility] 01/25/24 Milk Treater Relationship Specialty Start Date End Date Ge Cloud MD [address] [phone] PCP - General Family [facility] 01/25/24 Milk Treater Relationship Specialty Start Date End Date Ge Cloud MD [address] [phone] PCP - General Family [facility] 01/25/24 Goals (unrecognized section and content) [...] BE BASED ON THE PRIMARY CLINICAL RECORDS. [employer] [facility]. provides no warranty or guarantee of the accuracy or completeness of information in this document.
== END 2024-09-03 21:55 | disposition home or self-care (01) ==
LOC: LAB 21:54
PROVIDERS: PCP Family Medicine; Visit Provider Obstetrics & Gynecology
DX: Z34.93 Encounter for supervision of normal pregnancy, unspecified, third trimester (principal); Z3A.36 36 weeks gestation of pregnancy
CPT/HCPCS: 87081; 87150

== ENCOUNTER 2024-09-05 07:11 | Outpatient (OUT) | payer OTHER, SELFPAY ==
--- OUTSIDE RECORDS SUMMARY | 2024-09-05 07:14 | XMS_ITS | CCD ---
Author Organization [facility] Care Team Providers Care Child Protective Services Social Worker Name Role Phone Lyndon Dalal Primary Care Unavailable Juancarlos Maria Attending Unavailable Juancarlos Maria Admitting Unavailable Yoselin, Lyndon Unavailable Dallas Dalal CNPa Unavailable Lyndon Dalal CNP Primary Care Provider [phone] ANKIT Dalal Primary Care Provider [phone] ANKIT Dalal Attending Provider [phone] YOSELIN, LYNDON Primary Care Unavailable MARTINA RODRIGUEZ [...] Dami R Attending Unavailable Pedro Luis VELAZQUEZ, [place] Primary Care Provider AJITH, DAMI Attending Unavailable [...] Translations: [sulfa drugs] Drug Allergy [facility] Repository (6 sources) Sulfonamides (Antibiotic); Translations: [SULFA (SULFONAMIDE ANTIBIOTICS)] Drug allergy (disorder) 5 [facility] Repository (2 sources) Sulfonamide Drug allergy rash [place] [employer] Other (20 sources) Substance with sulfonamide structure and antibacterial mechanism of action (substance) Drug allergy 5 hazel [facility] (3 sources) Sulfonamides (Antibiotic); Translations: [sulfa drugs] Propensity to adverse reactions (disorder) [facility] Repository Medications Current Medications Medication Drug Class(es) Dates Sig (Normalized) Sig (Original) aspirin 81 mg delayed release oral tablet (11 sources) Platelet Aggregation Inhibitor, Nonsteroidal Anti-inflammatory Drug take 1 tablet by mouth in the morning aspirin 81 MG EC tablet Take 81 mg by mouth in the morning. Active calcium polycarbophil 625 mg oral tablet (11 sources) take 1 tablet by mouth once [...] Active docusate sodium 100 mg oral capsule (11 sources) take 1 capsule by mouth once [...] daily. magnesium oxide 400 mg oral tablet (11 sources) Start: 024 End: 025 take 1 [...] Active ondansetron 4 mg disintegrating oral tablet (11 sources) Serotonin-3 Receptor Antagonist Start: take 1 [...] a day for 5 days Aug, Active Aqybdqra-Gfg-Uq-FA ( 1 + IRON PO) (11 sources) Start: Kgilwcwm-Vzi-Sx-FA ( 1 + IRON PO) 01/20/2024 Active [...] by fredi th every twenty-four hours Biotin 32515 MCG 1 tablet Orally Once a day OTC Not-Taking/PRN take 1 tablet by fredi th every twenty-four hours Biotin 41666 MCG 1 tablet Orally Once a day OTC Not-Taking take 1 tablet by mouth once maria del carmen y Biotin 53704 MCG 1 tablet Orally Once a day OTC Not-Taking BIOTIN ORAL Take by mouth q 24 HR. 0 Active take 1 tablet by mouth once [place] y Biotin 08745 MCG 1 tablet Orally Once a day [...] Comment on above: Take 1 tablet by [facility] once daily. Iodine (14 sources) Iodine 225MCG [...] Probiotic OTC, daily Active lactobacillus rhamnosus gg [id number] unt oral capsule (1 source) Start: 5 End: 3 take 1 capsule by mouth once daily lactobacillus rhamnosus (CULTURELLE) 10 billion cell capsule Indications: Abdominal pain Take 1 capsule by mouth once daily. 30 capsule 2 04/30/2015 03/08/2023 Discontinued Comment on above: Take 1 capsule by mo [facility] once daily. Moringa (14 sources) Moringa 6000MG, [...] Comment on above: Take [address] [facility] once daily. pantoprazole 20 mg [...] trimester] Onset: 05-14-2024 Episodic Other complications of (11 sources) Abnormal amniotic fluid; Translations: [Other abnormal findings on screening of mother] Onset: 07-05-2024 07-05-2024 Episodic Other inflammatory condition of skin (14 sources) Pityriasis rosea; Translations: [Pityriasis rosea] Chronic Other non-traumatic joint disorders (1 source) Pain in unspecified hip Episodic Other nutritional; endocrine; and metabolic disorders (1 source) Abnormal weight loss Episodic Other and delivery including normal (9 sources) Encounter for care and examination of [...] ] Onset: 05-14-2024 Episodic Residual codes; unclassified (11 sources) Gestation period, 27 weeks; Translations: [27 [...] [35 weeks gestation of ] 08-27-2024 Episodic Residual codes; unclassified (2 sources) Gestation period, 36 weeks; Translations: [36 weeks gestation of ] 09-03-2024 Episodic Spondylosis; intervertebral disc disorders; other back [...] Range Facility Urinalysis macro (dipstick) panel (U)on 09-03-2024 Bilirubin, UA Negative Negative - 4(70) +++ mg/dL [facility] Blood, UA Negative Negative - 50 Juanito/mcL [facility] Clarity, UA Clear [facility] Color, UA Yellow [facility] Glucose, UA Negative Negative - 1999(110) ++++ mg/dL [facility] Interpretation and review of laboratory results Normal [facility] Ketones, UA Negative Negative - 160(16) ++++ mg/dL [facility] Leukocytes, UA Trace Negative - 500+++ Ken/mcL [facility] Nitrite, UA Negative Negative - Positive [facility] pH, UA 8.5 5 - 9 [facility] Protein, UA Negative Negative - 2000(20) ++++ mg/dL [facility] Spec Grav, UA 1.015 1 - 1.03 [facility] Urobilinogen, UA 0.2 0.2 - 12 mg/dL [facility] Urinalysis macro (dipstick) panel (U)on 08-27-2024 Bilirubin, UA Negative Negative - 4(70) +++ mg/dL [facility] Blood, UA Negative Negative - 50 Juanito/mcL [facility] Clarity, UA Clear [facility] Healthcare Color, UA Yellow [facility] Glucose, UA Negative Negative - 1999(110) ++++ mg/dL [facility] Interpretation and review of laboratory results Abnormal [facility] Ketones, UA Negative Negative - 160(16) ++++ mg/dL [facility] Leukocytes, UA Trace Negative - 500+++ Ken/mcL [facility] Healthcare Nitrite, UA Negative Negative - Positive [facility] Healthcare pH, UA 6.5 5 - 9 [facility] Protein, UA Negative Negative - 1999(20) ++++ mg/dL [facility] Spec Grav, UA 1.015 1 - 1.03 [facility] Urobilinogen, UA 0.2 0.2 - 12 mg/dL [facility] TSHon 08-20-2024 TSH Qn 1.87 m[IU]/L Normal 0.34-5.[address] [facility] Comment on above: Performed By: #### 2 [id number] #### [facility] [address] [place] [address] Urinalysis macro (dipstick) panel (U)on 08-14-2024 Bilirubin, UA Negative Negative - 4(70) +++ mg/dL [facility] Blood, UA Negative Negative - 50 Juanito/mcL [facility] Healthcare Clarity, UA Clear [facility] Color, UA Yellow [facility] Glucose, UA Negative Negative - 1999(110) ++++ mg/dL [facility] Interpretation and review of laboratory results Abnormal [facility] Ketones, UA Negative Negative - 160(16) ++++ mg/dL [facility] Leukocytes, UA Trace Negative - 500+++ Ken/mcL [facility] Nitrite, UA Negative Negative - Positive [facility] pH, UA 6.5 5 - 9 [facility] Protein, UA Negative Negative - 1999(20) ++++ mg/dL [facility] Spec Grav, UA 1.015 1 - 1.03 [facility] Urobilinogen, UA 0.2 0.2 - 12 mg/dL [facility] Urinalysis macro (dipstick) panel (U)on 07-31-2024 Bilirubin, UA Negative Negative - 4(70) +++ mg/dL [facility] Blood, UA Negative Negative - 50 Juanito/mcL [facility] Clarity, UA Clear [facility] Color, UA Yellow [facility] Glucose, UA Negative Negative - 1999(110) ++++ mg/dL [facility] Interpretation and review of laboratory results Abnormal [facility] Ketones, UA Negative Negative - 160(16) ++++ mg/dL [facility] Leukocytes, UA Positive Negative - 500+++ Ken/mcL [facility] Comment on above: small Nitrite, UA Negative Negative - Positive [facility] pH, UA 6.5 5 - 9 [facility] Protein, UA Negative Negative - 1999(20) ++++ mg/dL [facility] Spec Grav, UA 1.010 1 - 1.03 [facility] Urobilinogen, UA 0.2 0.2 - 12 mg/dL [facility] CBC w/ Auto Diffon 4 Basophils/100 WBC (Bld) 0.4 % Normal 0.0-2.[address] [facility] Comment on above: Performed By: #### 2 [id number] #### [facility] [address] [place] [address] Basophils/Leukocyt es Auto (Bld) [Pure # fraction] 0.0 E9/L Normal 0.0-0.[address] [facility] Comment on above: Performed By: #### 2 276558 #### [facility] [address] [place] [address] Eosinophils (Bld) [#/Vol] 0.2 E9/L Normal 0.0-0.[address] [facility] Comment on above: Performed By: #### 2 056064 #### [facility] [address] [place] [address] Eosinophils/100 WBC (Bld) 2.9 % Normal 0.0-8.[address] [facility] Comment on above: Performed By: #### 2 270672 #### [facility] [address] [place] [address] Erythrocyte distribution width (RBC) [Ratio] 13.6 % Normal 10.9-14.[address] [facility] Comment on above: Performed By: #### 2 072202 #### [facility] [address] [place] [address] Hematocrit (Bld) [Volume fraction] 37.3 % Normal 34.0-46.[address] [facility] Comment on above: Performed By: #### 2 835779 #### [facility] [address] [place] [address] Hemoglobin (Bld) [Mass/Vol] 12.8 g/dL Normal 12.0-16.[address] [facility] Comment on above: Performed By: #### 2 897847 #### [facility] [address] [place] [address] Lymphocytes (Bld) [#/Vol] 1.9 E9/L Normal 1.0-4.[address] [facility] Comment on above: Performed By: #### 2 567347 #### [facility] [address] [place] [address] Lymphocytes/100 WBC (Bld) 24.0 % Normal 14.0-50.[address] [facility] Comment on above: Performed By: #### 2 290674 #### [facility] [address] [place] [address] MCH (RBC) [Entitic mass] 30.5 pg Normal 27.0-34.[address] [facility] Comment on above: Performed By: #### 2 406109 #### [facility] [address] [place] [address] MCHC (RBC) [Mass/Vol] 34.2 g/dL Normal 31.4-36.[address] [facility] Comment on above: Performed By: #### 2 399103 #### [facility] [address] [place] [address] MCV (RBC) [Entitic vol] 89.0 fL Normal 80.0-100.[address] [facility] Comment on above: Performed By: #### 2 966256 #### [facility] [address] [place] [address] Monocytes (Bld) [#/Vol] 0.4 E9/L Normal 0.2-1.[address] [facility] Comment on above: Performed By: #### 2 431673 #### [facility] [address] [place] [address] Neutrophils (Bld) [#/Vol] 5.5 E9/L Normal 2.0-7.[address] [facility] Comment on above: Performed By: #### 2 139330 #### [facility] [address] [place] [address] Neutrophils/100 WBC (Bld) 67.8 % Normal 36.0-75.[address] [facility] Comment on above: Performed By: #### 2 377411 #### [facility] [address] [place] [address] Platelet mean volume (Bld) [Entitic vol] 8.3 fL Normal 6.4-10.[address] [facility] Comment on above: Performed By: #### 2 811729 #### [facility] [address] [place] [address] Platelets (Bld) [#/Vol] 267.0 E9/L Normal 150.0-500.[address] [facility] Comment on above: Performed By: #### 2 898252 #### [facility] [address] [place] [address] RBC (Bld) [#/Vol] 4.2 E12/L Low 4.3-5.[address] [facility] Comment on above: Performed By: #### 2 686718 #### [facility] [address] [place] [address] WBC corrected for nucl RBC Auto (Bld) [#/Vol] 8.0 E9/L Normal 4.0-11.[address] [facility] Comment on above: Performed By: #### 2 [id number] #### [facility] [address] [place] [address] Free T4on 07-23-2024 Free T4 [Mass/Vol] 0.57 ng/dL Low 0.58-1.[address] [facility] Comment on above: Performed By: #### 2 177635 #### [facility] [address] [place] [address] Lyteson 07-23-2024 Anion gap [Moles/Vol] 12 mmol/L Normal 6-[address] [facility] Comment on above: Performed By: #### 2 078133 #### [facility] [address] [place] [address] Chloride [Moles/Vol] 105 mmol/L Normal 101-[address] [facility] Comment on above: Performed By: #### 2 502157 #### [facility] [address] [place] [address] CO2 [Moles/Vol] 24 mmol/L Normal 21-31 [facility] Comment on above: Performed By: #### 2 431717 #### [facility] [address] [place] [address] Potassium [Moles/Vol] 3.5 mmol/L Normal 3.5-5.[address] [facility] Comment on above: Performed By: #### 2 828129 #### [facility] [address] [place] [address] Sodium [Moles/Vol] 137 mmol/L Normal 135-[address] [facility] Comment on above: Performed By: #### 2 045024 #### [facility] [address] [place] [address] TSHon 07-23-2024 TSH Qn 2.26 m[IU]/L Normal 0.34-5.[address] [facility] Comment on above: Performed By: #### 2 258083 #### [facility] [address] [place] [address] CMPon 06-25-2024 Albumin [Mass/Vol] 3.6 g/dL Normal 3.3-5.[address] [facility] Comment on above: Performed By: #### 2 227396 #### [facility] [address] [place] [address] Albumin/Globulin (S) [Mass conc ratio] 1.3 Normal 1.1-2.[address] [facility] Comment on above: Performed By: #### 2 376539 #### [facility] [address] [place] [address] ALP [Catalytic activity/Vol] 63 Int._Unit/L Normal 21-[address] [facility] Comment on above: Performed By: #### 2 503348 #### [facility] [address] [place] [address] ALT No additional P-5'-P [Catalytic activity/Vol] 13 Int._Unit/L Normal 6-[address] [facility] Comment on above: Performed By: #### 2 314860 #### [facility] [address] [place] [address] Anion gap [Moles/Vol] 10 mmol/L Normal 6-[address] [facility] Comment on above: Performed By: #### 2 663442 #### [facility] [address] [place] [address] AST [Catalytic activity/Vol] 12 Int._Unit/L Normal 5-[address] [facility] Comment on above: Performed By: #### 2 187626 #### [facility] [address] [place] [address] Bilirubin [Mass/Vol] 0.7 mg/dL Normal 0.0-1.[address] [facility] Comment on above: Performed By: #### 2 416640 #### [facility] [address] [place] [address] Calcium [Mass/Vol] 8.6 mg/dL Low 8.9-11.[address] [facility] Comment on above: Performed By: #### 2 592085 #### [facility] [address] [place] [address] Chloride [Moles/Vol] 104 mmol/L Normal 101-[address] [facility] Comment on above: Performed By: #### 2 592963 #### [facility] [address] [place] [address] CO2 [Moles/Vol] 25 mmol/L Normal 21-31 [facility] Comment on above: Performed By: #### 2 913125 #### [facility] [address] [place] [address] Creatinine [Mass/Vol] 0.4 mg/dL Low 0.5-1.[address] [facility] Comment on above: Performed By: #### 2 754611 #### [facility] [address] [place] [address] Globulin (S) [Mass/Vol] 2.8 g/dL Normal 1.4-4.[address] [facility] Comment on above: Performed By: #### 2 341554 #### [facility] [address] [place] [address] Glucose [Mass/Vol] 97 mg/dL Normal 55-[address] [facility] Comment on above: Performed By: #### 2 706450 #### [facility] [address] [place] [address] Potassium [Moles/Vol] 3.4 mmol/L Low 3.5-5.[address] [facility] Comment on above: Performed By: #### 2 406996 #### [facility] [address] [place] [address] Protein [Mass/Vol] 6.4 g/dL Normal 6.0-7.[address] [facility] Comment on above: Performed By: #### 2 261953 #### [facility] [address] [place] [address] Sodium [Moles/Vol] 136 mmol/L Normal 135-[address] [facility] Comment on above: Performed By: #### 2 066630 #### [facility] [address] [place] [address] Urea nitrogen [Mass/Vol] 8 mg/dL Normal 5-[address] [facility] Comment on above: Performed By: #### 2 507892 #### [facility] [address] [place] [address] Urea nitrogen/Creatinin e [Mass ratio] 20 No Units Normal 10-[address] [facility] Comment on above: Performed By: #### 2 065229 #### [facility] [address] [place] [address] TSHon 06-25-2024 TSH Qn 3.63 m[IU]/L Normal 0.34-5.[address] [facility] Comment on above: Performed By: #### 2 912767 #### [facility] [address] [place] [address] eGFRon 06-25-2024 eGFR 142 mL/min/1.73 m2 Normal >=[address] [facility] Comment on above: Order Comment: Order added by Discern Expert. Performed By: #### 1 6236919 #### [facility] [address] [place] [address] TSHon 05-31-2024 TSH Qn 1.99 m[IU]/L Normal 0.34-5.[address] [facility] Comment on above: Performed By: #### 2 970970 #### [facility] [address] [place] [id number] TSHon 05-01-2024 TSH Qn 1.54 m[IU]/L Normal 0.34-5.[address] [facility] Comment on above: Performed By: #### 2 686953 #### [facility] [address] [place] [address] Consent for Treatmenton Consent for Treatment [id number] F Normal [facility] Physician Orderon 04-04-2024 Physician Order [id number] FF Normal [facility] TSHon 04-04-2024 TSH Qn 2.73 m[IU]/L Normal 0.34-5.[address] [facility] Comment on above: Performed By: #### 2 283304 #### [facility] [address] [place] [address] XR Spine Cervical 4 or 5 Vie [...] . DAP = . Normal [facility] XR Spine Thoracic 3 Viewson 09-16-2023 [...] . DAP = . Normal [facility] Physician Orderon 09-15-2023 Physician Order [id number] IFF Normal [facility] T4 Free SerPl-mCncon 023 Free T4 [Mass/Vol] 1.2 ng/dL Normal 0.9-1.7 [facility] Comment on above: Order Comment: Speci men Type: BLOOD SPECIMEN Ordering Facility: [facility] Address: [address] [place] [address] Performed By: #### 3 024-7, 3016-3 #### [facility] CLIA [id number] [address] [place] [address] [place] TSH SerPl-aCncon 08-18-2023 TSH Qn 2.280 m[IU]/L Normal 0.270-4.200 [facility] Comment on above: Order Comment: Speci men Type: BLOOD SPECIMEN Ordering Facility: [facility] Address: [address] [place] [address] Result Comment: If t he patient is , TSH reference range varies by gestational period: First Trimester (weeks 9-12): 0.180-2.990 mIU/L Second Trimester: 0.110-3.980 mIU/L Third Trimester: 0.480-4.710 mIU/L Noe Ramon et al. A Practical Approach for the Verifications and Determination of Site- and Trimester-Specific Reference Intervals for Thyroid Function tests in . Thyroid, 2019:29:3:412-420. Gregor E, et al. 2017 Guidelines of the [place] [employer] for the Diagnosis and Management of Thyroid Disease during and the . Thyroid, 2017:27:3:315-389. Performed By: #### 3 024-7, 3016-3 #### [facility] CLIA [id number] [address] [place] [address] [place] Consent for Treatmenton 09-0 Consent for Treatment [id number]: [address] [facility] US Renalon 07-08-2023 US Renal Exam [...] by: MORENO Technologist: EMILY Normal [facility] XR Abdomen 1 Viewon 07-08-20 XR [...] . DAP = . Normal [facility] Ambulatory Visit Summaryon 0 06-21-2023 Ambulatory Visit Summary EMMY DALE :2000 Visit Date:06/21/2023 Ambulatory Visit Instructions Your Diagnosis Urinary crystals Recurrent UTI Urethral stricture Gross hematuria Tests Performed Urnls Dip Stick Auto w/o Microscopy POC 41438 Your Care Team Attending Physician - SOBEIDA [...] pt. Where: [address] [place] [address] You Need to Complete the Following US Renal, *Est. 06/21/23 due within 1 months, Routine, Order for future visit, Transport Mode: Ambulatory, Reason: Other (please specify), Reason: Kidney Stones, No, Kidney stones, pp_set_radiology_subspec ialty, [place] XR Abdomen 1 View, *Est. 06/21/23 due [...] Urnls Dip Stick Auto w/o Microscopy POC 77948 (06/21/2023) Bilirubin Urine Dipstick - Negative Blood Urine Dipstick - Negative Glucose Urine Dipstick - Negative Ketones Urine Dipstick - Negative Leukocytes Urine Dipstick - Negative Nitrite Urine Dipstick - Negative Protein Urine Dipstick - Negative Specific [place] Urine Dipstick - 1.010 Urine Appearance Urine [...] ? 8 oz (237 mL) of milk, yktsaro-nnzumpsqruka-naw ry milk, and calcium-fortifiedfruit juice. Calcium-fortified means [...] wheat cereals. (more content not included)... Normal [facility] Patient Educationon 06-21-20 Patient Education [...] ? 8 oz (237 mL) of milk, akneblq-moqxpuwcdezi-vco ry milk, and calcium-fortifiedfruit juice. Calcium-fortified means [...] Spinach (cooked), rhubarb, beets, sweet potatoes, and [place]amese chard. ? Peanuts. ? Potato chips, turkish fries, and baked potatoes with skin on. ? Nuts and nut products. ? Chocolate. ? If you regularly take a diuretic medicine, make sure to eat at least 1 or 2 servings of fruits or vegetables that are high in potassium each day. These include: ? Avocado. ? Banana. ? Pine Top, prune, carrot, or tomato juice. ? Baked [...] fish oil, or vitamin B6. ? Take pkac-xpw-hikdzpd and prescription medicines only as told by your health care provider. These include supplements. What foods should I limit? Limit your in (more content not included)... Normal [facility] Urology Office/Clinic Noteon 06-21-2023 Urology Office/Clinic [...] Urnls Dip Stick Auto w/o Microscopy POC 25748 4. Gross hematuria (R31.0: Gross hematuria) CORDELIA [...] When Contact Information SOBEIDA THOMPSON PA-C, URL [address] [place] [address] Additional Instructions: will call pt. Patient Education [...] (more content not included)... Normal [facility] Comment on above: Result Comment: Elec tronically Signed By: SOBEIDA THOMPSON PA-C\.br\Date and Time Signed: 06/21/23 12:44 EDT\.br\Electronically Co-Signed By: Laura Loubr\Date and Time Co-Signed: 06/21/23 12:25 EDT PAP [id number] 06-07-2023 Cytology report Cyto stain Doc (Cvx/Vag) Note Invalid Interpretation Code [facility] Comment on above: Result Comment: TEST S RESULT FLAG UNITS REF RANGE LAB Clinician Provided Cytology Information Source.............Endoc[employer]ix No. of containers..01 ThinPrep Vial DIAGNOSIS: 01 NEGATIVE FOR INTRAEPITHELIAL LESION OR MALIGNANCY. Specimen adequacy: 01 Satisfactory for evaluation. Endocervical and/or squamous metaplastic cells (endocervical component) are present. Performed by: Clif Bolaños, Machine Tender (ASCP) . 01 Note: Note 01 The [...] High <-Panic Low,>-Panic High,A-Abnormal,AA-Critical Abnormal Performed at: [facility] [address] [address] Lisa Ellington MD, Performed at: [facility] [address] KELSEA Walsh [id number] MD Chandana Gonzalez Performed By: #### 3 [id number] ####[facility] [address] [place] [address] Consent for Treatmenton Consent for Treatment [id number]: [address] [facility] Heart and Vascular Office/Cl inic Noteon [...] but unfortunately she was called by the boat officer and told that it was not [...] (more content not included)... Normal [facility] Comment on above: Result Comment: Elec tronically Signed By: SAMUEL VELAZQUEZ, Benjamin Le.br\Date and Time Signed: 06/01/23 14:25 EDT PAP [id number] 06-01-2023 Collection Technique BRUSH-SPATULA Normal [facility] Comment on above: Performed By: #### 3 [id number] ####[facility] [address] [place] [address] Gynecological Body Site ENDOCERVIX Normal [facility] Comment on above: Performed By: #### 3 [id number] ####[facility] [address] [place] [address] Physician Orderon 06-01-2023 Physician Order [id number]#1.00CD :127 [facility] Physician Order [id number]#1.00CD: 127 [facility] C Urineon 05-27-2023 Bacteria identified Cx Nom (U) Microbiology PROCEDURE: Urine Culture [R1] SOURCE: U CleanCatch BODY SITE: COLLECTED DATE/TIME: 05/25/2023 15:25 EDT RECEIVED DATE/TIME: 05/25/2023 16:39 EDT START DATE/TIME: 05/25/2023 16:39 EDT FREE TEXT SOURCE: YOSELIN ROUTE SALESMAN AND DRIVER, LYNDON DALAL ROUTE SALESMAN AND DRIVER, LYNDON FINAL REPORTS Final Report [] Verified [...] Locations R1: This test was performed at: [facility], [address] [place], [address]- , [place], Normal [facility] Comment on above: Performed By: #### 2 [id number] ####[facility] [address] [place] [address] T4 Free SerPl-mCncon 023 Free T4 [Mass/Vol] 1.2 ng/dL Normal 0.9-1.7 [facility] Comment on above: Order Comment: Rozina florez Type: BLOOD SPECIMEN Ordering Facility: [facility] Address: [address] [address] Performed By: #### 3 024-7, 3016-3 #### [facility] CLIA [id number] OF [facility] TSH SerPl-aCncon 05-26-2023 TSH Qn 2.260 m[IU]/L Normal 0.270-4.200 [facility] Comment on above: Order Comment: Rozina florez Type: BLOOD SPECIMEN Ordering Facility: [facility] Address: [address] [address] Result Comment: If t he patient is , TSH reference range varies by gestational period: First Trimester (weeks 9-12): 0.180-2.990 mIU/L Second Trimester: 0.110-3.980 mIU/L Third Trimester: 0.480-4.710 mIU/L Noe Ramon et al. A Practical Approach for the Verifications and Determination of Site- and Trimester-Specific Reference Intervals for Thyroid Function tests in . Thyroid, 2019:29:3:412-420. Gregor E, et al. 2017 Guidelines of the [place] Thyroid Association for the Diagnosis and Management of Thyroid Disease during and the . Thyroid, 2017:27:3:315-389. Performed By: #### 3 024-7, 3016-3 #### [facility] CLIA [id number] [address] [place] [address] [place] Consent for Treatmenton 05-01 Consent for Treatment [id number]#1.00CD: [address] [facility] Physician Orderon 05-25-2023 Physician Order [id number]#1.00CD:12 [address] [facility] Urinalysison 05-25-2023 Bacteria LM Ql (Urine sed) 2+ /HPF Abnormal Trace [facility] Comment on above: Performed By: #### 1 [id number] ####[facility] [address] [place] [address] Bilirubin Ql (U) Negative Normal Negative [facility] Comment on above: Performed By: #### 1 [id number] ####[facility] [address] [place] [address] Clarity (U) SL CLOUDY Abnormal Clear [facility] Comment on above: Performed By: #### 1 [id number] ####[facility] [address] [place] [address] Color (U) YELLOW Normal Yellow [facility] Comment on above: Performed By: #### 1 [id number] ####[facility] [address] [place] [address] Crystals LM Ql (Urine sed) Present Normal [facility] Comment on above: Performed By: #### 1 [id number] ####[facility] [address] [place] [address] Epithelial cells.squamous LM.HPF (Urine sed) [#/Area] 0-2 Normal 0-[address] [facility] Comment on above: Performed By: #### 1 [id number] ####[facility] [address] [place] [address] Glucose Test strip (U) [Mass/Vol] Negative Normal Negative [facility] Comment on above: Performed By: #### 1 [id number] ####[facility] [address] [place] [address] Hemoglobin Ql (U) 2+ Abnormal Negative [facility] Comment on above: Performed By: #### 1 [id number] ####[facility] [address] [place] [address] Ketones (U) [Mass/Vol] Negative Normal Negative [facility] Comment on above: Performed By: #### 1 [id number] ####[address] [address] Phillips.plasma/Lit hium.RBC (Bld) [Mass ratio] 0-3 Normal 0-[address] [facility] Comment on above: Performed By: #### 1 [id number] ####[address] [address] Mucus Ql (Urine sed) TRACE Normal [facility] Comment on above: Performed By: #### 1 [id number] ####[address] [address] Nitrite Ql (U) Positive Abnormal Negative [facility] Comment on above: Performed By: #### 1 [id number] ####[address] [address] pH (U) 6.0 [pH] Invalid Interpretation Code 5.0-9.[address] [facility] Comment on above: Performed By: #### 1 [id number] ####[address] [address] Protein (U) [Mass/Vol] Negative Normal Negative [facility] Comment on above: Performed By: #### 1 [id number] ####[address] [address] Specific gravity (U) [Rel density] 1.010 Invalid Interpretation Code 1.005-1.[address] [facility] Comment on above: Performed By: #### 1 [id number] ####[address] [address] Type of Urine collection method Clean Catch Normal [facility] Comment on above: Performed By: #### 1 [id number] ####[address] [address] Urobilinogen Qn (U) 0.2 {Catarino'U}/dL Normal 0.0-1.[address] [facility] Comment on above: Performed By: #### 1 [id number] ####[facility] [address] [place] [address] WBC Auto Ql (U) 1+ Abnormal Negative [facility] Comment on above: Performed By: #### 1 [id number] ####[facility] [address] [place] [address] WBC LM.HPF (Urine sed) [#/Area] 26-30 Abnormal 0-[address] [facility] Comment on above: Performed By: #### 1 [id number] ####[facility] [address] [place] [address] Consent for Treatmenton 04-30 Consent for Treatment [id number]#1.00CD: [address] [facility] Consent for Treatmenton Consent for Treatment [id number]#1.00CD: [address] [facility] Heart and Vascular Office/Cl inic Noteon [...] (more content not included)... Normal [facility] Comment on above: Result Comment: Elec tronically Signed By: Samuel VELAZQUEZ, Benjamin Lopez\.br\Date and Time Signed: 05/05/23 16:11 EDT Physician Orderon 05-05-2023 Physician Order [id number]#1.00CD :[address] [facility] Stress EKG Tracingson 2022 Stress EKG Tracings [id number]#1.00CD: 127 [facility] Consent for Treatmenton 03-31 Consent for Treatment [id number]#1.00CD: [address] [facility] T3Free SerPl-mCncon 04-06-20 23 Free T3 [Mass/Vol] 3.3 pg/mL Normal 2.3-4.1 [facility] Comment on above: Order Comment: Speci men Type: BLOOD SPECIMEN Ordering Facility: [facility] Address: [address] [place] [address] Performed By: #### 3 051-0, 3024-7, 3016-3 #### [facility] CLIA [id number] [address] [place] [address] [place] T4 Free SerPl-mCncon 023 Free T4 [Mass/Vol] 1.4 ng/dL Normal 0.9-1.7 [facility] Comment on above: Order Comment: Speci men Type: BLOOD SPECIMEN Ordering Facility: [facility] Address: [address] [place] [address] Performed By: #### 3 051-0, 3024-7, 3016-3 #### [facility] CLIA [id number] [address] [place] [address] OF S[place] THYROGLOBULIN ABon Thyroglobulin Ab Qn 1.8 [IU]/mL Normal <4.0 [facility] Comment on above: Order Comment: Speci men Type: BLOOD SPECIMEN Ordering Facility: [facility] Address: [address] [place] [address] Result Comment: The Thyroglobulin Antibody test was performed using the Oviceversael DXI paramagnetic particle chemiluminescent immunoassay method. Results obtained with different assay methods or kits cannot be used interchangeably. Performed By: #### T JASON #### [facility] CLIA [id number] [address] [place] [address] [place] THYROID PEROXIDASE ANTIBODY BLOODon 04-06-2023 [place] 4572.0 [IU]/mL High <5.6 [facility] Comment on above: Order Comment: Rozina florez Type: BLOOD SPECIMEN Ordering Facility: [facility] Address: [address] [address] Result Comment: Thyr oid Peroxidase Antibody test is used as an aid in diagnosis of autoimmune thyroid disease. Clinical correlation is required. Performed By: #### M LEONORO #### [facility] CLIA [id number] [address] [facility] [address] [place] TSH SerPl-aCncon 04-06-2023 TSH Qn 6.050 m[IU]/L High 0.270-4.200 [facility] Comment on above: Order Comment: Rozina florez Type: BLOOD SPECIMENOrdering Facility: [facility] Address: [address] [place] [address] Result Comment: If t he patient is , TSH reference range varies by gestational period: First Trimester (weeks 9-12): 0.180-2.990 mIU/L Second Trimester: 0.110-3.980 mIU/L Third Trimester: 0.480-4.710 mIU/L Noe Ramon et al. A Practical Approach for the Verifications and Determination of Site- and Trimester-Specific Reference Intervals for Thyroid Function tests in . Thyroid, 2019:29:3:412-420. Gregor Banegas, et al. 2017 Guidelines of the [place] Thyroid Association for the Diagnosis and Management of Thyroid Disease during and the . Thyroid, 2017:27:3:315-389. Performed By: #### 3 051-0, 3024-7, 3016-3 ####[facility] [id number] [address] OF [facility] CNOVon 03-08-2023 CNOV Office Visit (ENDOLN ) -------- EMMY DALE ([id number]) 1 F Date Time Provider Department 03/08/23 [...] Arthritis Father in blood . was at [facility] when baby thought to be related to [...] involuntary motions. (more content not included)... Normal [facility] Vital Signs Date Time Vital Sign Value Performing Clinician Facility 09-03-2024 08:55-0500 Body weight 103.33 kg Dami Ajith DO Work Phone: [facility] 09-03-2024 08:55-0500 Diastolic blood pressure 72 mm[Hg] Dami Ajith DO Work Phone: [facility] 09-03-2024 08:55-0500 Systolic blood pressure 118 mm[Hg] Dami Ajith DO Work Phone: [facility] 08-27-2024 08:50-0400 Body weight 104.33 kg Dami Ajith DO Work Phone: [facility] 08-27-2024 08:50-0400 Diastolic blood pressure 68 mm[Hg] Dami Ajith DO Work Phone: [facility] 08-27-2024 08:50-0400 Systolic blood pressure 110 mm[Hg] Dami Ajith DO Work Phone: [facility] 08-14-2024 09:36-0400 Body weight 101.61 kg Dami Ajith DO Work Phone: [facility] 08-14-2024 09:36-0400 Diastolic blood pressure 70 mm[Hg] Dami Ajith DO Work Phone: [facility] 08-14-2024 09:36-0400 Systolic blood pressure 120 mm[Hg] Dami Ajith DO Work Phone: [facility] 07-31-2024 08:55-0400 Body weight 99.34 kg Dami Ajith DO Work Phone: [facility] 07-31-2024 08:55-0400 Diastolic blood pressure 68 mm[Hg] Dami Ajith DO Work Phone: [facility] 07-31-2024 08:55-0400 Systolic blood pressure 112 mm[Hg] Dami Canseco DO Work Phone: [facility] 09-15-2023 13:30-0500 Body height 162.56 cm Lyndon Easterwood Other [employer] Other 09-15-2023 13:30-0500 Body mass index (BMI) [Ratio] 30.21 kg/m2 Lyndon Easterwood Other [employer] Other 09-15-2023 13:30-0500 Body weight 79.83 kg Lyndon Easterwood Other [employer] Other 09-15-2023 13:30-0500 Diastolic blood pressure 68 mm[Hg] Lyndon Easterwood Other [employer] Other 09-15-2023 13:30-0500 Respiratory rate 18 /min Lyndon Easterwood Other [employer] Other 09-15-2023 13:30-0500 SaO2% (BldA) [Mass fraction] 99 % Lyndon Easterwood Other [employer] Other 09-15-2023 13:30-0500 Systolic blood pressure 118 mm[Hg] Lyndon Easterwood Other [employer] Other 07-12-2023 09:15-0400 Body height 162.56 cm Lyndon Easterwood Other [employer] Other 07-12-2023 09:15-0400 Body mass index (BMI) [Ratio] 29.86 kg/m2 Lyndon Easterwood Other [employer] Other 07-12-2023 09:15-0400 Body temperature 98.6 [degF] Lyndon Easterwood Other [employer] Other 07-12-2023 09:15-0400 Body weight 78.93 kg Lyndon Easterwood Other [employer] Other 07-12-2023 09:15-0400 Diastolic blood pressure 70 mm[Hg] Lyndon Easterwood Other [employer] Other 07-12-2023 09:15-0400 Respiratory rate 20 /min Lyndon Easterwood Other [employer] Other 07-12-2023 09:15-0400 SaO2% (BldA) [Mass fraction] 98 % Lyndon Easterwood Other [employer] Other 07-12-2023 09:15-0400 Systolic blood pressure 112 mm[Hg] Lyndon Easterwood Other [employer] Other 05-25-2023 17:30-0400 Body height 162.56 cm Lyndon JoseerClassBadges Other [employer] Other 05-25-2023 17:30-0400 Body mass index (BMI) [Ratio] 30.04 kg/m2 Lyndon Easterwood Other [employer] Other 05-25-2023 17:30-0400 Body temperature 98.2 [degF] Lyndon Easterwood Other [employer] Other 05-25-2023 17:30-0400 Body weight 79.38 kg Lyndon EasterClassBadges Other [employer] Other 05-25-2023 17:30-0400 Diastolic blood pressure 72 mm[Hg] Lyndon Easterwood Other [employer] Other 05-25-2023 17:30-0400 Respiratory rate 20 /min Lyndon Easterwood Other [employer] Other 05-25-2023 17:30-0400 SaO2% (BldA) [Mass fraction] 99 % Lyndon Joseerrick Other [employer] Other 05-25-2023 17:30-0400 Systolic blood pressure 110 mm[Hg] Lyndon Easterwood Other [employer] Other 03-08-2023 16:13-0400 Body weight 83.92 kg Martina Rodriguez MD, PhD Work Phone: [facility] 03-08-2023 16:13-0400 Diastolic blood pressure 76 mm[Hg] Martina Rodriguez MD, PhD Work Phone: [facility] 03-08-2023 16:13-0400 Systolic blood pressure 116 mm[Hg] Martina Rodriguez MD, PhD Work Phone: [facility] 08-05-2022 16:00-0400 Body height 162.56 cm Lyndon Dalal Other [employer] Other 08-05-2022 16:00-0400 Body mass index (BMI) [Ratio] 32.78 kg/m2 Lyndon Joseerwood Other [employer] Other 08-05-2022 16:00-0400 Body temperature 98 [degF] Lyndon Easterwood Other [employer] Other 08-05-2022 16:00-0400 Body weight 86.64 kg Lyndon Dalal Other [employer] Other 08-05-2022 16:00-0400 Diastolic blood pressure 76 mm[Hg] Lyndon Dalal Other [employer] Other 08-05-2022 16:00-0400 Respiratory rate 20 /min Lyndon Dalal Other [employer] Other 08-05-2022 16:00-0400 SaO2% (BldA) [Mass fraction] 99 % Lyndon Dalal Other [employer] Other 08-05-2022 16:00-0400 Systolic blood pressure 122 mm[Hg] Lyndon Dalal Other [employer] Other Encounters Encounter Date Encounter Type Care Provider Facility Start: 09-03-2024 End: 09-03-2024 Bamboo flowsheet Dami Ajith DO Work Phone: [facility] Start: 09-03-2024 End: 09-03-2024 Bamboo flowsheet Dami Ajith DO Work Phone: [facility] Start: 09-03-2024 End: 09-03-2024 ambulatory DAMI AJITH Not Available Start: 09-03-2024 End: 09-03-2024 flow sheet Dami Ajith DO Work Phone: [facility] Comment on above: 36 weeks gestation o f ; Third trimester Start: 08-27-2024 End: 08-27-2024 flow sheet Dami [...] 07-23-2024 End: 07-23-2024 ambulatory Dami R AJITH Facility:[facility] Start: 07-19-2024 End: 07-19-2024 ambulatory LELE ALEJO Not Available Start: 07-05-2024 End: 07-05-2024 ambulatory DAMI AJITH Not Available Start: 06-25-2024 End: 06-25-2024 ambulatory DAMI AJITH Not Available Start: 06-25-2024 End: 06-25-2024 ambulatory LELE ALEJO Facility:[facility] Start: 06-12-2024 End: 06-12-2024 ambulatory DAMI R AJITH [facility] Start: 06-04-2024 End: 06-04-2024 ambulatory LELE MELO Not Available Start: 05-14-2024 End: 05-14-2024 ambulatory DAMI R AJITH [facility] Start: 05-08-2024 End: 05-08-2024 ambulatory DAMI AJITH Not Available Start: 04-09-2024 End: 04-09-2024 ambulatory DAMI AJITH Not Available Start: 04-04-2024 ambulatory Dami R AJITH Facility: [facility] Start: 03-12-2024 End: 03-12-2024 ambulatory DAMI AJITH Not Available Start: 02-24-2024 End: 02-24-2024 ambulatory DAMI AJITH Not Available Start: 12-04-2023 End: 12-04-2023 ambulatory Lyndon Joseerwood Other [employer] Other Start: 12-04-2023 Encounter by [place] r link Lyndon Garciaerwood [facility] Start: 11-05-2023 End: 11-05-2023 ambulatory Lyndon Easterwood Other [employer] Other Start: 11-05-2023 Encounter by Cabana r link Lyndon Garciaerwood [facility] Start: 10-25-2023 End: 10-25-2023 ambulatory Lyndon J Joseerwood Facility:[facility] Start: 10-10-2023 End: 10-10-2023 ambulatory Lyndon Easterwood Other [employer] Other Start: 10-10-2023 Telephone encounter Lyndon Joseerwood [facility] Start: 09-26-2023 End: 09-26-2023 ambulatory Lyndon Easterwood Other [employer] Other Start: 09-26-2023 Telephone encounter Lyndon Joseerwood [facility] Start: 09-18-2023 End: 09-18-2023 ambulatory Lyndon Easterwood Other [employer] Other Start: 09-18-2023 Telephone encounter Lyndon Fallwilson [facility] Start: 09-15-2023 End: 09-15-2023 ambulatory LYNDON [facility] [employer] Other Start: 09-15-2023 [facility] Start: 08-18-2023 End: 08-18-2023 [facility] Start: 08-05-2023 Get Medical Advice Martina Rodriguez MD, PhD Work Phone: Endocrinology Comment on above: lab orders Start: 07-22-2023 End: 07-22-2023 [facility] [employer] Other Start: 07-22-2023 [facility] [employer] [facility] Start: 07-12-2023 End: 07-12-2023 [facility] [employer] Other Start: 07-12-2023 Office [facility] Start: 07-12-2023 Telephone encounter Lyndon Fallwilson [facility] Start: 07-08-2023 End: 07-08-2023 ambulatory SOBEIDA THOMPSON Facility:[facility] Start: 06-27-2023 End: 06-27-2023 ambulatory Lyndon Dalal Other [employer] Other Start: 06-27-2023 Telephone encounter Lyndon Fallwilson [facility] Start: 06-21-2023 End: 06-21-2023 ambulatory SOBEIDA THOMPSON Facility:[facility] Start: 06-01-2023 End: 06-01-2023 ambulatory Benjamin BAKER Facility:[facility] Start: 06-01-2023 End: 06-01-2023 ambulatory Bill Kat Facility:[facility] Start: 05-26-2023 End: 05-26-2023 ambulatory LYNDON YOSELIN Facility:[facility] Start: 05-25-2023 End: 05-25-2023 ambulatory LYNDON [facility] [employer] Other Start: 05-25-2023 Office outpatient visit 15 minutes Lyndon Joseelham [facility] Start: 05-17-2023 End: 05-17-2023 ambulatory Benjamin BAKER Facility:[facility] Start: 05-05-2023 End: 05-05-2023 ambulatory Benjamin BAKER Facility:[facility] Start: 04-15-2023 End: 04-15-2023 ambulatory Benjamin BAKER Facility:[facility] Start: 04-06-2023 End: 04-06-2023 ambulatory MARTINA RODRIGUEZ Facility:[facility] Start: 03-08-2023 End: 03-08-2023 ambulatory MARTINA RODRIGUEZ Facility:[facility] Start: 03-08-2023 End: 03-08-2023 Patient encounter procedure Martina Rodriguez MD, PhD Work Phone: Endocrinology Comment on above: Vikki's thyroidi tis (Primary Dx) Start: 02-28-2023 End: 02-28-2023 ambulatory Lyndon Dalal Other [employer] Other Start: 02-28-2023 Telephone encounter Lyndon Dalal [facility] Start: 02-21-2023 End: 02-21-2023 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 Lyndon Dalal Work Phone: [facility] Work Phone: Start: 02-21-2023 End: 02-21-2023 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 Lyndon Dalal Work Phone: [facility] Work Phone: Start: 08-09-2022 End: 08-09-2022 ambulatory Lyndon Dalal Other [employer] Other Start: 08-09-2022 Telephone encounter Lyndon Dalal [facility] Start: 08-05-2022 End: 08-06-2022 Emergency department patient visit Lyndon Dalal Facility:[facility] Start: 08-05-2022 End: 08-05-2022 ambulatory Lyndon Dalal Other [employer] Other Start: 08-05-2022 Office outpatient visit 40 minutes Lyndon Dalal [facility] Procedures Date Procedure Procedure Detail Performing Clinician Start: 09-03-2024 Urnls dip stick/tabl et rgnt non-auto w/o micrscp Dami Ajith DO Work Phone: Start: 08-27-2024 Urnls dip stick/tabl et rgnt [...] Routine [facility] [address] [place] [address] Dami Canseco DO [address], [place] [address] [facility] Start: 09-10-2024 End: 09-10-2024 Patient encounter procedure 09/10/2024 8:40 AM EST Routine [facility] [address] [place] [address] Dami Canseco, DO [address] [place] [address] [facility] Start: 09-03-2024 End: 09-03-2025 Strep B DNA probe, amplification Strep B DNA probe, amplification Lab Routine 36 weeks gestation of Third trimester Expected: 09/03/2024 (Approximate), Expires: 09/03/2025 [facility] Work Phone: Comment on above: Expected: 09/03/2024 (Approximate), Expires: 09/03/2025 Start: 09-03-2024 End: 09-03-2024 Patient encounter procedure 09/03/2024 8:40 AM EST Routine [facility] [address] [place] [id number] Dami Canseco, DO [address], [place] [id number] [facility] Start: 08-27-2024 End: 08-27-2024 Patient encounter procedure 08/27/2024 8:40 AM EDT Routine [facility] [address] [place] [id number] Dami Canseco, DO [address], [place] [id number] [facility] Start: 08-14-2024 End: 08-14-2024 Patient encounter procedure [facility] Comment on above: Arrived Start: 08-06-2024 End: 08-06-2024 Professional / ancillary services management 08/06/2024 8:00 AM EDT Ancillary Procedure [facility] [address] [place] [id number] [facility] Start: 07-31-2024 End: 07-31-2024 Patient encounter procedure 07/31/2024 8:50 AM EDT Routine [facility] [address] [place] [address] Dami Canseco, [address] [place] [id number] Arrived [facility] Comment on above: Arrived Start: 07-01-2024 Influenza vaccination Influenza Vacc ine (#1) [facility] Start: 08-08-2023 End: 10-08-2023 Thyrotropin [Units/volume] in Serum or Plasma TSH BLD Lab Routine Vikki's thyroiditis Expected: 08/08/2023, Expires: 10/08/2023 [facility] Work Phone: Comment on above: Expected: 08/08/2023 , Expires: 10/08/2023 Start: 08-08-2023 End: 10-08-2023 Thyroxine (T4) free [Mass/volume] in Serum or Plasma T4 FREE/FREE THYROX Lab Routine Vikki's thyroiditis Expected: 08/08/2023, Expires: 10/08/2023 [facility] Work Phone: Comment on above: Expected: 08/08/2023 , Expires: 10/08/2023 Start: 07-07-2023 Urine microalbumin profile [facility] Start: 07-01-2023 Covid-19 Vaccine ( season) Covid-19 Vaccine ( season) [facility] Start: 07-01-2023 Influenza vaccination Influenza Vacc ine (#1) [facility] Start: 03-31-2023 End: 05-31-2023 Thyroglobulin Ab [Units/volume] in Serum or Plasma THYROGLOBULIN AB Lab Routine Vikki's thyroiditis Expected: 03/31/2023, Expires: 05/31/2023 [facility] Work Phone: Comment on above: Expected: 03/31/2023 , Expires: 05/31/2023 Start: 03-31-2023 End: 05-31-2023 THYROID PEROXIDASE ANTIBODY BLOOD THYROID PEROXIDASE ANTIBODY BLOOD Lab Routine Vikki's thyroiditis Expected: 03/31/2023, Expires: 05/31/2023 [facility] Work Phone: Comment on above: Expected: 03/31/2023 , Expires: 05/31/2023 Start: 03-31-2023 End: 05-31-2023 Thyrotropin [Units/volume] in Serum or Plasma TSH BLD Lab Routine Vikki's thyroiditis Expected: 03/31/2023, Expires: 05/31/2023 [facility] Work Phone: Comment on above: Expected: 03/31/2023 , Expires: 05/31/2023 Start: 03-31-2023 End: 05-31-2023 Thyroxine (T4) free [Mass/volume] in Serum or Plasma T4 FREE/FREE THYROX Lab Routine Vikki's thyroiditis Expected: 03/31/2023, Expires: 05/31/2023 [facility] Work Phone: Comment on above: Expected: 03/31/2023 , Expires: 05/31/2023 Start: 03-31-2023 End: 05-31-2023 Triiodothyronine (T3) Free [Mass/volume] in Serum or Plasma T3 FREE BLD Lab Routine Vikki's thyroiditis Expected: 03/31/2023, Expires: 05/31/2023 [facility] Work Phone: Comment on above: Expected: 03/31/2023 , Expires: 05/31/2023 Start: 10-31-2022 DEPRESSION ASSESSMENT DEPRESSION ASS ESSMENT [facility] Start: 2021 PAP TESTING PAP TESTING [facility] Start: 02-02-2021 COVID-19 VACCINE (3 - Booster for Pfizer series) COVID-19 VACCINE (3 - Booster for Pfizer series) [facility] Start: 2018 CHLAMYDIA SCREENING (18-24) CHLAMYDIA SCREENING (18-24) [facility] Start: 2018 GC (GONORRHEA) SCREE MICHELLE (18-24) GC (GONORRHEA) SCREENING (18-24) [facility] Start: 2018 HEPATITIS C SCREENING HEPATITIS C SC JULIUS [facility] Start: 2018 HIV SCREENING HIV SCREENING [facility] Start: 2016 Meningococcal B Vacc ine: Consider Based On Risk (2 of 2 - Risk Bexsero 2-dose series) Meningococcal B Vaccine: Consider Based On Risk (2 of 2 - Risk Bexsero 2-dose series) [facility] Start: 2016 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 (2 of 2 - Risk Bexsero 2-dose series) MENINGOCOCCAL B: Consider based on risk (2 of 2 - Risk Bexsero 2-dose series) [facility] Start: 2014 PEDS TO ADULT TRANSI TION ANNUAL ASSESSMENT PEDS TO ADULT TRANSITION ANNUAL ASSESSMENT [facility] Start: 2012 PEDS TO ADULT TRANSI TION INITIAL DISCUSSION PEDS TO ADULT TRANSITION INITIAL DISCUSSION [facility] Immunizations Immunization Date Immunization Notes Care Provider Fa [facility] 07-19-2022 influenza, injectabl e, quadrivalent, contains preservative Lyndon Easterwood Other [employer] Other 07-19-2022 influenza virus vaccine, unspecified formulation Martina Rodriguez MD, PhD Work Phone: [facility] 12-08-2020 Do not use COVID-19 Pfizer 2 dose Lyndon Easterwood Other [employer] Other 11-17-2020 Do not use COVID-19 Pfizer 2 dose Lyndon Easterwood Other [employer] Other 07-31-2020 influenza, injectabl e, quadrivalent, contains preservative Lyndon Easterwood Other [employer] Other 10-18-2016 influenza, injectabl e, quadrivalent, contains preservative Martina Rodriguez MD, PhD Work Phone: [facility] 08-04-2015 influenza, injectabl e, quadrivalent, contains preservative Martina Rodriguez MD, PhD Work Phone: [facility] 04-23-2014 human papilloma viru s vaccine, quadrivalent Martina Rodriguez MD, PhD Work Phone: [facility] 09-29-2013 human papilloma viru s vaccine, quadrivalent Martina Rodriguez MD, PhD Work Phone: [facility] 07-07-2013 human papilloma viru s vaccine, quadrivalent Martina Rodriguez MD, PhD Work Phone: [facility] 07-07-2013 meningococcal polysaccharide (groups A, C, Y and W-135) diphtheria toxoid conjugate vaccine (MCV4P) Martina Rodriguez MD, PhD Work Phone: [facility] Work Phone: 07-07-2013 tetanus toxoid, redu ollie diphtheria toxoid, and acellular pertussis vaccine, adsorbed Martina Rodriguez MD, PhD Work Phone: [facility] 08-04-2009 influenza virus vaccine, unspecified formulation Martina Rodriguez MD, PhD Work Phone: [facility] 07-05-2008 hepatitis A vaccine, unspecified formulation Martina Rodriguez MD, PhD Work Phone: [facility] 09-09-2007 influenza virus vaccine, unspecified formulation Martina Rodriguez MD, PhD Work Phone: [facility] Work Phone: 06-19-2007 hepatitis A vaccine, unspecified formulation Martina Rodriguez MD, PhD Work Phone: [facility] 06-19-2007 varicella virus vaccine Parth Rodriguez MD, PhD Work Phone: [facility] 09-14-2006 influenza virus vaccine, unspecified formulation Martina Rodriguez MD, PhD Work Phone: [facility] 05-13-2006 diphtheria, tetanus toxoids and acellular pertussis vaccine Martina Rodriguez MD, PhD Work Phone: [facility] Work Phone: 05-13-2006 measles, mumps and rubella virus vaccine Martina Rodriguez MD, PhD Work Phone: [facility] Work Phone: 05-13-2006 poliovirus vaccine, inactivated Martina Rodriguez MD, PhD Work Phone: [facility] Work Phone: 05-13-2006 varicella virus vaccine Parth Rodriguez MD, PhD Work Phone: [facility] Work Phone: 07-26-2005 influenza virus vaccine, unspecified formulation Martina Rodriguez MD, PhD Work Phone: [facility] Work Phone: 07-30-2004 influenza virus vaccine, unspecified formulation Martina Rodriguez MD, PhD Work Phone: [facility] Work Phone: 06-30-2002 diphtheria, tetanus toxoids and acellular pertussis vaccine Martina Rodriguez MD, PhD Work Phone: [facility] Work Phone: 06-30-2002 poliovirus vaccine, inactivated Martina Rodriguez MD, PhD Work Phone: [facility] Work Phone: 04-04-2002 haemophilus influenz ae type b vaccine, HbOC conjugate Martina Rodriguez MD, PhD Work Phone: [facility] Work Phone: 04-04-2002 measles, mumps and rubella virus vaccine Martina Rodriguez MD, PhD Work Phone: [facility] Work Phone: 12-16-2001 hepatitis B vaccine, pediatric or pediatric/adolescent dosage Martina Rodriguez MD, PhD Work Phone: [facility] Work Phone: 12-16-2001 pneumococcal conjuga te vaccine, 7 valent Martina Rodriguez MD, PhD Work Phone: [facility] Work Phone: 09-30-2001 pneumococcal conjuga te vaccine, 7 valent Martina Rodriguez MD, PhD Work Phone: [facility] Work Phone: 06-24-2001 diphtheria, tetanus toxoids and acellular pertussis vaccine Martina Rodriguez MD, PhD Work Phone: [facility] Work Phone: 06-24-2001 haemophilus influenz ae type b vaccine, HbOC conjugate Martina Rodriguez MD, PhD Work Phone: [facility] Work Phone: 06-24-2001 pneumococcal conjuga te vaccine, 7 valent Martina Rodriguez MD, PhD Work Phone: [facility] Work Phone: 04-12-2001 diphtheria, tetanus toxoids and acellular pertussis vaccine Martina Rodriguez MD, PhD Work Phone: [facility] Work Phone: 04-12-2001 haemophilus influenz ae type b vaccine, HbOC conjugate Martina Rodriguez MD, PhD Work Phone: [facility] Work Phone: 04-12-2001 poliovirus vaccine, inactivated Martina Rodriguez MD, PhD Work Phone: [facility] Work Phone: 02-03-2001 diphtheria, tetanus toxoids and acellular pertussis vaccine Martina Rodriguez MD, PhD Work Phone: [facility] Work Phone: 02-03-2001 haemophilus influenz ae type b vaccine, HbOC conjugate Martina Rodriguez MD, PhD Work Phone: [facility] Work Phone: 02-03-2001 poliovirus vaccine, inactivated Martina Rodriguez MD, PhD Work Phone: [facility] Work Phone: 2000 hepatitis B vaccine, pediatric or pediatric/adolescent dosage Martina Rodriguez MD, PhD Work Phone: [facility] Work Phone: 2000 hepatitis B vaccine, pediatric or pediatric/adolescent dosage Martina Rodriguez MD, PhD Work Phone: [facility] Work Phone: Payers Date Payer Category Payer Private Health Insurance [id number] 2024 Unknown [id number] 2023 Unknown [id number] 2022 Private Health Insurance [id number] 2022 Self-pay 2020 Private Health Insurance [id number] 2020 Private Health Insurance [id number] 2000 Unknown [id number] 2.16.840.1.950915.3.579.2.727 2000 Unknown [id number] 2.16.840.1.335471.3.579.2.727 2000 Unknown [id number] 2.16.840.1.026763.3.579.2.727 2000 Unknown [id number] 2.16.840.1.815947.3.579.2.727 2000 Unknown [id number] 2.16.840.1.317796.3.579.2.727 2000 Unknown [id number] 2.16.840.1.187542.3.579.2.727 2000 Unknown [id number] 2.16.840.1.369843.3.579.2.727 2000 Unknown [id number] 2.16.840.1.314113.3.579.2.727 2000 Unknown [id number] 2.16.840.1.130459.3.579.2.727 2000 Unknown [id number] 2.16.840.1.455550.3.579.2.727 2000 Unknown [id number] 2.16.840.1.473977.3.579.2.727 2000 Unknown [id number] 2.16.840.1.463881.3.579.2.1286 2000 Unknown [id number] 2.16.840.1.985003.3.579.2.1286 2000 Unknown [id number] 2.16.840.1.703067.3.579.2.1286 2000 Unknown [id number] 2.16.840.1.934503.3.579.2.727 2000 Unknown [id number] 2.16.840.1.266579.3.579.2.727 2000 Unknown [id number] 2.16.840.1.711369.3.579.2.9 2000 Unknown [id number] 2.16.840.1.546919.3.579.2.1258 2000 Unknown [id number] 2.16.840.1.520418.3.579.2.9 2000 Unknown [id number] 2.16.840.1.062710.3.579.2.1258 2000 Unknown [id number] 2.16.840.1.301816.3.579.2.9 2000 Unknown [id number] 2.16.840.1.489595.3.579.2.1258 2000 Unknown [id number] 2.16.840.1.332992.3.579.2.9 2000 Unknown [id number] 2.16.840.1.432298.3.579.2.1258 2000 Unknown [id number] 2.16.840.1.729697.3.579.2.1258 2000 Unknown [id number] 2.16.840.1.060897.3.579.2.1258 2000 Unknown [id number] 2.16.840.1.285439.3.579.2.1259 2000 Unknown [id number] 2.16.840.1.343542.3.579.2.1259 Private Health Insurance [facility] [id number] Unknown [id number] 2.16.840.1.291709.3.579.2.531 Unknown [facility] Employees [id number] Unknown [id number] 2.16.840.1.766712.3.579.2.531 Social History Date Type Detail Facility Start: 03-08-2023 End: 07-05-2024 Sex Assigned At [facility] Other Start: 09-27-2014 End: 07-05-2024 Tobacco smoking status DCIS Never smoked tobacco [facility] History of tobacco use Passive smoker [facility] Start: 03-08-2023 Alcohol intake Not Asked [facility] Start: 2000 Sex Assigned At Not on file C [facility] Start: 2000 Sex Assigned At Female F [facility] Start: 03-08-2023 End: 07-05-2024 History of Social function [facility] Start: 07-05-2024 Tobacco use and exposure Smokeless tobacco non-user [facility] Start: 07-19-2024 End: 08-27-2024 Alcoholic beverage intake Ex-drinker (finding) [facility] Start: 01-06-2024 [facility] Clinical Notes 09-09-2009 to 09-03-2024 Rhoda Ortiz LPN - 09/03/2024 8:40 AM Yelitza Ortiz LPN - 08/27/2024 8:40 AM Ling Ortega LPN - 08/14/2024 8:40 AM NIDIA Stephens - 07/31/2024 8:50 AM EDT Note Date & Type Note Facility 09-03-2024 History of Presen t illness Narrative Reason for Appointment: Patient ID: Emmy Dale is a 23 y.o. female who presents for No chief complaint on file. Patient presents today for Return OB appointment. MEDICATIONS Current Outpatient Medications Medication Instructions aspirin 81 mg, Daily RT docusate sodium (COLACE) 100 mg, Daily fiber 625 mg, Daily levothyroxine (SYNTHROID) 100 mcg, Oral, Daily before breakfast magnesium oxide (MAG-OX) 400 mg, Oral, Daily ondansetron ODT (ZOFRAN-ODT) 4 mg, Oral, Every 6 hours PRN Axydvubg-Ctc-Kj-FA ( 1 + IRON PO) ALLERGIES Allergies [...] Terri Thyroid disease Sister Vangie SURGICAL HISTORY No past surgical history on file. REVIEW OF SYSTEMS Review of Systems: Review of Systems All other systems reviewed and are negative. OBJECTIVE Objective: Physical Exam Constitutional: Appearance: Normal appearance. She is well-developed. Genitourinary: Vulva normal. Cardiovascular: Rate and Rhythm: Normal rate and [...] nursing note reviewed. Exam conducted with a residential gas heat technician present. Vitals: There is no height or weight on file to calculate BMI. BP: Patient's last menstrual period was 12/23/2023. ASSESSMENT & PLAN Patient is doing well but has complaints of being tired and having maternal discomfort due to . Patient verbalized frequent movement and was instructed to perform kick counts three times per day. labor precautions were given, LARC consent was signed/declined, and GBS was obtained. Patient would like to discuss possible nuchal cord seen on BPP over the weekend. Follow Up: Patient is to return to office in 1 week for routine OB appointment Documented by Rhoda Ortiz LPN on behalf of: Dami Canseco DO documented in this encounter [facility] 08-27-2024 History of Presen t illness Narrative [...] 4 mg, Oral, Every 6 hours PRN Amsqqspi-Uon-Xs-FA ( 1 + IRON PO) ALLERGIES Allergies [...] nursing note reviewed. Exam conducted with a residential gas heat technician present. Vitals: There is no height or [...] Dami Canseco DO documented in this encounter [facility] 08-14-2024 History of Presen t illness [...] 4 mg, Oral, Every 6 hours PRN Uhncfizz-Bnv-Ir-FA ( 1 + IRON PO) ALLERGIES Allergies [...] nursing note reviewed. Exam conducted with a residential gas heat technician present. Vitals: There is no height or [...] by Mar Ortega LPN on behalf of: Dmai Canseco DO documented in this encounter [facility] 07-31-2024 History of Presen t illness [...] 4 mg, Oral, Every 6 hours PRN Jkjzhjze-Hee-Et-FA ( 1 + IRON PO) ALLERGIES Allergies [...] Dami Canseco DO documented in this encounter [facility] 09-15-2023 Evaluation note Encounter Date Diagnosis [...] in office today for physical therapy to [place] location through [facility]. Discussed continuation of qlpe-tri-evdjzpn medications as needed. Take muscle relaxer as [...] in office today for physical therapy to [facility] through [facility]. Discussed continuation of wwkb-oyw-wzpbwvt medications as needed. Take muscle relaxer as [...] that were not corrected during review process. [employer] Other 09-12-2023 Evaluation note* Encounter Date Diagnosis [...] that were not corrected during review process. [employer] Other 07-26-2023 Evaluation note* Encounter Date Diagnosis [...] that were not corrected during review process. [employer] Other 06-18-2023 NoteEchocardiology Procedure Exam Date/Time Accession # Ordering ECG Stress Exercise 04/15/2023 08:43 EDT [id number] Benjamin Baker MD CPT code 85018 Reason for Exam (ECG Stress Exercise) I95.1;Dizziness [...] Benjamin Baker MD Transcribed by: angela Technologist: [facility]06-16-2023 Note Echocardiology Procedure Exam Date/Time Accession # Ordering DrHazel Echo Transthoracic 04/15/2023 09:42 EDT [id number] Benjamin Baker MD Complete CPT code 55441 18184 Reason for Exam (Echo Transthoracic Complete) I95.9;Hypotension Report [address] [place] [address] Adult Echocardiogram Report Name: EMMY DALE Study Date: 04/15/2023 09:02 AM BP: 105/71 mmHg Patient [facility]: [facility] HR: 75 : 2000 Gender: Female Height: 63 in Age: 22 yrs Ethnicity: T Weight: 178 lb Reason For Study: Hypotension BSA: 1.8 m2 History: No cardiac history per patient Ordering Physician: Samuel^Benjamin^John Referring Physician: Benjamin Baker Performed By: Jonelle Alvarez [facility] Interpretation Summary Ejection Fraction = [...] Baker MD Transcribed by: YOVANI Technologist: [facility]05-09-2023 Note HNO ID: [id number] Author: Martina Rodriguez MD, PhD Service: ? [...] Arthritis Father in blood . was at [facility] when baby thought to be related to [...] Plan: Will monitor thyroid (more content not included)...[facility] 03-08-2023 History of Present illness Narrative* [...] Arthritis Father in blood . was at [facility] when baby thought to be related to [...] [facility]* Encounter Date Diagnosis Assessment Notes [...] I would recommend referral to a different pattern filer. Patient does have the name of an pattern filer that she would like referred to. We will put that referral in today. Dr. Roger Kim - [facility] Endocrinology, [facility] February, Dizziness (ICD-10 - R42) Discussed [...] that were not corrected during review process. [employer] Other 10-06-2022 Evaluation note* Encounter Date Diagnosis [...] to ER, I highly recommend she call PENSION MANAGER the second she leaves our office to follow-up.She needs to let them know about her concerns.I explained to her that even though she may assume that her PENSION MANAGER will not listen her , I still want her to reach out to that office and explained to them her current concerns. She wants to know what the immediate treatment would be and work-up for spinal headache and possible leak however I cannot provide her with this information as I am not PENSION MANAGER. Jul, Hip pain (ICD-10 - M25.559) While [...] I did discuss with her concerns over lczv-vji-clblltc medications during breast-feeding. Discussed recommendations currently and please bring this up to PENSION MANAGER as well for further recommendations. Does not [...] I would like her to follow-up with PENSION MANAGER or go to ER regarding this dizziness and we can follow-up in office after. If nothing comes from an PENSION MANAGER/spinal headache/spinal leak standpoint, we can order CT [...] that were not corrected during review process. [employer] Other 11-10-2009 History of Past illness Narrative* Problem Noted Date Resolved Date Constipation 09/09/2009 08/28/2014 documented as of this encounter (statuses as of 03/09/2023) [facility]11-10-2009 History of Past illness Narrative* Problem Noted Date Diagnosed Date Resolved Date Constipation 09/09/2009 08/28/2014 documented as of this encounter (statuses as of 08/09/2023) [facility] noteNo InformationNort [employer] Other Evaluation note* Diagnosis Vikki's thyroiditis- Primary Chronic lymphocytic thyroiditis [facility] noteNo assessment information availableHigh[facility] Work Phone: Evaluation note* Diagnosis Vikki's thyroiditis- Primary Chronic lymphocytic thyroiditis documented in this encounter [facility]* Diagnosis 31 weeks gestation of Third trimester state, incidental documented in this encounter [facility] HealthcareEvaluation note* Diagnosis 33 weeks gestation of Third trimester state, incidental documented in this encounter [facility] HealthcareEvaluation note* Diagnosis Third trimester state, incidental 35 weeks gestation of documented in this encounter [facility] HealthcareEvaluation note* Diagnosis 36 weeks gestation of Third trimester state, incidental documented in this encounter [facility] HealthcareHistory general Narrative - Reported* Type Description Date Medical History Asthma Medical History Vasovagal syndrome- childhood (r esolved) Medical History Exercise-induced asthma Medical History Pityriasis rosea Medical History Tachycardia Medical History Vikki's thyroiditis Medical History Pre-eclampsia Surgical History Mchenry teeth extract 2016 Surgical History Vaginal childbirth 03/2022 Hospitalization History See surgical hx [employer] Other Hisuukq general Narrative - Reported* Type Description Date Medical History Exercise-induced asthma Medical History Pityriasis rosea Medical History Tachycardia Medical History Vikki's thyroiditis Medical History Asthma Medical History Pre-eclampsia Medical History Hypotension Surgical History Mchenry teeth extract 2016 Surgical History Vaginal childbirth 03/2022 Hospitalization History See surgical hx [employer] Other Hisgnvs general Narrative - Reported* Type Description Date Medical History Exercise-induced asthma Medical History Pityriasis rosea Medical History Tachycardia Medical History Vikki's thyroiditis Medical History Asthma Medical History Pre-eclampsia Medical History Hypotension Medical History GERD (gastroesophageal reflux di sease) Surgical History Mchenry teeth extract 2017 Surgical History Vaginal childbirth 03/2022 Surgical History EGD/colonoscopy 2011 Hospitalization History See surgical hx [employer] Other Histhfu general Narrative - Reported* Type Description Date Medical History Exercise-induced asthma Medical History Pityriasis rosea Medical History Tachycardia Medical History Vikki's thyroiditis Medical History Asthma Medical History Pre-eclampsia Medical History Hypotension Medical History GERD (gastroesophageal reflux di sease) Medical History Thyromegaly Surgical History Mchenry teeth extract 2016 Surgical History Vaginal childbirth 03/2022 Surgical History EGD/colonoscopy 2012 Hospitalization History See surgical hx [employer] Other History general Narrative - Reported* Type Description Date Medical History Exercise-induced asthma Medical History Pityriasis rosea Medical History Tachycardia Medical History Vikki's thyroiditis Medical History Asthma Medical History Pre-eclampsia Medical History Hypotension Medical History GERD (gastroesophageal reflux di sease) Medical History Thyromegaly Medical History Other idiopathic scoliosis, thor acic region Surgical History Mchenry teeth extract 2016 Surgical History Vaginal childbirth 03/2022 Surgical History EGD/colonoscopy 2012 Hospitalization History See surgical hx [employer] Other Summary Purpose Family History No Family [...] gastriti s with hemorrhage (K29.01) Referral Organization [facility] Ava Rivera Referring Provider [facility] Name Lyndon Referring Provider Last Name Yoselin Referring Provider Specialty Nurse Pract itioner Referred Organization [facility] Gastroenterolo gy Referred Provider Patricio Urena Referred Address [address] [place] [phone] Referred Provider Specialty Gastroentero logy Referral Priority Routine General Notes Misti Vivas 023 10:08:56 AM >Received today. [facility] request us to fill out their form and fax to them. They will review the referral and call patient to schedule them. Referral was fax. Misti Vivas 07/12/2023 01:31:38 PM >Per telephone encounter, patient wants to try [facility] Gastro doctors. Sent P2P Reason *FU 03/08 Dr. Hawa Kim - [facility], [facility]; [employer]- please send this note with 2 previous notes Diagnosis 1 Vikki's thyroidi tis (E06.3) [facility] Referring Provider First Name Lyndon Referring Provider Last Name [facility] Referring Provider Specialty Nurse Pract itraleighr Referred Organization [facility] Referred Address [address] [place],[address] Referred Provider Specialty Endocrinolog y Referral Priority Routine General Notes Misti Vivas 023 01:21:05 PM >Received today and referral was fax with the [facility] Form. They will review and call patient to schedule Reason *FU 03/08 Dizzines s- TERRENCE; Please send this note with 2 previous notes Diagnosis 1 Dizziness (R42) Referral Organization [facility] sally Rivera Referring Provider First Name Lyndon Referring Provider Last Name [facility] Referring Provider Specialty Nurse Pract itfelecia Referred Organization [facility] Referred Provider Jose Dominguez Referred [address] [facility] [facility] [place], [place],[address] Referred Provider Specialty Neurology Referral Priority Routine [...] DATE CREATED AUTHOR AUTHOR'S ORGANIZ ATION 08/20/2023 [facility] DATE CREATED AUTHOR AUTHOR'S ORGANIZ ATION 04/06/2024 [facility] DATE CREATED AUTHOR AUTHOR'S ORGANIZ ATION 05/03/2024 [facility] DATE CREATED AUTHOR AUTHOR'S ORGANIZ ATION 05/18/2024 [facility] DATE CREATED AUTHOR AUTHOR'S ORGANIZ ATION 06/14/2024 [facility] DATE CREATED AUTHOR AUTHOR'S ORGANIZ ATION 06/26/2024 [facility] DATE CREATED AUTHOR AUTHOR'S ORGANIZ ATION 07/07/2024 [facility] DATE CREATED AUTHOR AUTHOR'S ORGANIZ ATION 07/24/2024 [facility] DATE CREATED AUTHOR AUTHOR'S ORGANIZ ATION 07/29/2024 [facility] DATE CREATED AUTHOR AUTHOR'S ORGANIZ ATION 08/21/2024 [facility] DATE CREATED AUTHOR AUTHOR'S ORGANIZ ATION 09/04/2024 [facility] dical Specialists EPIC REASON FOR [...] drug abuse patient.[facility] the event this information is protected by the Federal Confidentiality of Alcohol and Drug Abuse Patient Records regulations: The Federal rules restrict any use of the information to criminally investigate or prosecute any alcohol or drug abuse patient.[facility] Care Teams (unrecognized sec tion and content) Child Protective Services Social Worker Relationship Specialty Start Date End Date Lyndon Dalal CNP [address] [address] PCP - General Family Medicine 03/08/23 Lyndon Dalal CNP [address] [address] Referring Family Medicine 03/04/23 Team Status: Active Member Role Status Dates Lyndon Dalal APRN Primary Care Provider Active Team Status: Inactive Member Role Status Dates Lyndon Dalal APRN Primary Care Provider, Attend ing Provider Active Child Protective Services Social Worker Relationship Specialty Start Date End Date Lyndon Dalal CNP [address] [address] PCP - General Family Medicine 03/08/23 Lyndon Dalal CNP [address] [address] Referring Family Medicine 03/04/23 Child Protective Services Social Worker Relationship Specialty Start Date End Date Ge Cloud MD [address] [phone] PCP - General Family Medicine 01/25/24 Child Protective Services Social Worker Relationship Specialty Start Date End Date Ge Cloud MD [address] [place] [phone] PCP - General Family Medicine 01/25/24 Child Protective Services Social Worker Relationship Specialty Start Date End Date Ge Cloud MD [address] [phone] PCP - General Family Medicine 01/25/24 Child Protective Services Social Worker Relationship Specialty Start Date End Date Ge Cloud MD [address] [phone] PCP - General Family Medicine 01/25/24 Child Protective Services Social Worker Relationship Specialty Start Date End Date Ge Cloud MD [address] [phone] PCP - General Family Medicine 01/25/24 Goals [...] BE BASED ON THE PRIMARY CLINICAL RECORDS. [facility]. provides no warranty or guarantee of the accuracy or completeness of information in this document.
[2024-09-05 18:02] VITALS: BP 129/84; PULSE 83
== END 2024-09-05 18:50 | disposition home or self-care (01) ==
LOC: FBCO 17:54 → FBC 17:58
PROVIDERS: PCP Family Medicine; Visit Provider Obstetrics & Gynecology
DX: O99.283 Endocrine, nutritional and metabolic diseases complicating pregnancy, third trimester (principal); Z3A.36 36 weeks gestation of pregnancy
CPT/HCPCS: 59025

== ENCOUNTER 2024-09-08 07:15 | Outpatient (OUT) | payer OTHER, SELFPAY ==
--- OUTSIDE RECORDS SUMMARY | 2024-09-08 07:18 | XMS_ITS | CCD ---
Author Organization [facility] Care Team Providers Care Exotic Dancer Name Role Phone Lyndon Dalal Primary Care Unavailable Juancarlos Maria Attending Unavailable Juancarlos Maria Admitting Unavailable Yoselin, Lyndon Unavailable Dallas Dalal CNPa Unavailable Lyndon Dalal CNP Primary Care Provider ANKIT Dalal Primary Care Provider [phone] ANKIT Dalal Attending Provider [phone] YOSELIN, LYNDON Primary Care Unavailable MARTINA RODRIGUEZ [...] Dami R Attending Unavailable Pedro Luis VELAZQUEZ, [place] Primary Care Provider [phone] AJITH, DAMI Attending Unavailable AJITH, DAMI Attending [...] Sulfonamides (Antibiotic); Translations: [sulfa drugs] Drug Allergy [facility] Repository (6 sources) Sulfonamides (Antibiotic); Translations: [SULFA (SULFONAMIDE ANTIBIOTICS)] Drug allergy (disorder) 5 [facility] Repository (2 sources) Sulfonamide Drug allergy rash [employer] Other (20 sources) Substance with sulfonamide structure and antibacterial mechanism of action (substance) Drug [facility] (3 sources) Sulfonamides (Antibiotic); Translations: [sulfa drugs] Propensity to adverse reactions (disorder) [facility] Repository Medications Current Medications Medication [...] a day for 5 days Aug, Active Wwafiaiq-Xwy-Yh-FA ( 1 + IRON PO) (11 sources) Start: Xkdeepdi-Ynw-Xv-FA ( 1 + IRON PO) 01/20/2024 Active [...] by fredi th every twenty-four hours Biotin 67664 MCG 1 tablet Orally Once a day OTC Not-Taking/PRN take 1 tablet by fredi th every twenty-four hours Biotin 02708 MCG 1 tablet Orally Once a day OTC Not-Taking take 1 tablet by mouth once maria del carmen y Biotin 28410 MCG 1 tablet Orally Once a day OTC Not-Taking BIOTIN ORAL Take by mouth q 24 HR. 0 Active take 1 tablet by mouth once [place]ia [place] carmen y Biotin 85633 MCG 1 tablet Orally Once a day [...] Comment on above: Take 1 tablet by [facility] once daily. Iodine (14 sources) Iodine [...] Probiotic OTC, daily Active lactobacillus rhamnosus gg [id number] unt oral capsule (1 source) Start: 5 End: 3 take 1 capsule by mouth once daily lactobacillus rhamnosus (CULTURELLE) 10 billion cell capsule Indications: Abdominal pain Take 1 capsule by mouth once daily. 30 capsule 2 04/30/2015 03/08/2023 Discontinued Comment on above: Take 1 capsule by mo [facility] once daily. Moringa (14 sources) [...] Comment on above: Take 1 capsule by [facility] once daily. pantoprazole 20 mg delayed release [...] Negative Negative - 4(70) +++ mg/dL [facility] Blood, UA Negative Negative - 50 Juanito/mcL [facility] Clarity, UA Clear [facility] Color, UA Yellow [facility] Glucose, UA Negative Negative - 1999(110) ++++ mg/dL [facility] Interpretation and review of laboratory results Normal [facility] Ketones, UA Negative Negative - 160(16) ++++ mg/dL [facility] Leukocytes, UA Trace Negative - 500+++ Ken/mcL [facility] Nitrite, UA Negative Negative - Positive [facility] pH, UA 8.5 5 - 9 [facility] Protein, UA Negative Negative - 2000(20) ++++ mg/dL [facility] Spec Grav, UA 1.015 1 - 1.03 [facility] Urobilinogen, UA 0.2 0.2 - 12 mg/dL [facility] Urinalysis macro (dipstick) panel (U)on 08-27-2024 Bilirubin, UA Negative Negative - 4(70) +++ mg/dL [facility] Blood, UA Negative Negative - 50 Juanito/mcL [facility] Clarity, UA Clear [facility] Healthcare Color, UA Yellow [facility] Healthcare Glucose, UA Negative Negative - 1999(110) ++++ mg/dL [facility] Interpretation and review of laboratory results Abnormal [facility] Ketones, UA Negative Negative - 160(16) ++++ mg/dL [facility] Leukocytes, UA Trace Negative - 500+++ Ken/mcL [facility] Healthcare Nitrite, UA Negative Negative - Positive [facility] Healthcare pH, UA 6.5 5 - 9 [facility] Protein, UA Negative Negative - 1999(20) ++++ mg/dL [facility] Spec Grav, UA 1.015 1 - 1.03 [facility] Urobilinogen, UA 0.2 0.2 - 12 mg/dL [facility] TSHon 08-20-2024 TSH Qn 1.87 m[IU]/L Normal 0.34-5.60 [facility] Comment on above: Performed By: #### 2 [id number] #### [facility] [address] [place] [address] Urinalysis macro (dipstick) panel (U)on 08-14-2024 Bilirubin, UA Negative Negative - 4(70) +++ mg/dL [facility] Blood, UA Negative Negative - 50 Juanito/mcL [facility] Healthcare Clarity, UA Clear [facility] Color, UA Yellow [facility] Glucose, UA Negative Negative - 1999(110) ++++ mg/dL [facility] Interpretation and review of laboratory results Abnormal [facility] Ketones, UA Negative Negative - 160(16) ++++ mg/dL [facility] Leukocytes, UA Trace Negative - 500+++ Ken/mcL [facility] Nitrite, UA Negative Negative - Positive [facility] pH, UA 6.5 5 - 9 [facility] Protein, UA Negative Negative - 1999(20) ++++ mg/dL [facility] Spec Grav, UA 1.015 1 - 1.03 [facility] Urobilinogen, UA 0.2 0.2 - 12 mg/dL [facility] Urinalysis macro (dipstick) panel (U)on 07-31-2024 Bilirubin, UA Negative Negative - 4(70) +++ mg/dL [facility] Blood, UA Negative Negative - 50 Juanito/mcL [facility] Clarity, UA Clear [facility] Color, UA Yellow [facility] Glucose, UA Negative Negative - 1999(110) ++++ mg/dL [facility] Interpretation and review of laboratory results Abnormal [facility] Ketones, UA Negative Negative - 160(16) ++++ mg/dL [facility] Leukocytes, UA Positive Negative - 500+++ Ken/mcL [facility] Comment on above: small Nitrite, UA Negative Negative - Positive [facility] pH, UA 6.5 5 - 9 [facility] Protein, UA Negative Negative - 1999(20) ++++ mg/dL [facility] Spec Grav, UA 1.010 1 - 1.03 [facility] Urobilinogen, UA 0.2 0.2 - 12 mg/dL [facility] CBC w/ Auto Diffon 4 Basophils/100 WBC (Bld) 0.4 % Normal 0.0-2.0 [facility] Comment on above: Performed By: #### 2 648182 #### [facility] [address] [place] [address] Basophils/Leukocyt es Auto (Bld) [Pure # fraction] 0.0 E9/L Normal 0.0-0.2 [facility] Comment on above: Performed By: #### 2 583539 #### [facility] [address] [place] [address] Eosinophils (Bld) [#/Vol] 0.2 E9/L Normal 0.0-0.5 [facility] Comment on above: Performed By: #### 2 403074 #### [facility] [address] [place] [address] Eosinophils/100 WBC (Bld) 2.9 % Normal 0.0-8.0 [facility] Comment on above: Performed By: #### 2 088746 #### [facility] [address] [place] [address] Erythrocyte distribution width (RBC) [Ratio] 13.6 % Normal 10.9-14.2 [facility] Comment on above: Performed By: #### 2 402928 #### [facility] [address] [place] [address] Hematocrit (Bld) [Volume fraction] 37.3 % Normal 34.0-46.0 [facility] Comment on above: Performed By: #### 2 664760 #### [facility] [address] [place] [address] Hemoglobin (Bld) [Mass/Vol] 12.8 g/dL Normal 12.0-16.0 [facility] Comment on above: Performed By: #### 2 360918 #### [facility] [address] [place] [address] Lymphocytes (Bld) [#/Vol] 1.9 E9/L Normal 1.0-4.0 [facility] Comment on above: Performed By: #### 2 986310 #### [facility] [address] [place] [address] Lymphocytes/100 WBC (Bld) 24.0 % Normal 14.0-50.0 [facility] Comment on above: Performed By: #### 2 927540 #### [facility] [address] [place] [address] MCH (RBC) [Entitic mass] 30.5 pg Normal 27.0-34.0 [facility] Comment on above: Performed By: #### 2 408509 #### [facility] [address] [place] [address] MCHC (RBC) [Mass/Vol] 34.2 g/dL Normal 31.4-36.0 [facility] Comment on above: Performed By: #### 2 577131 #### [facility] [address] [place] [address] MCV (RBC) [Entitic vol] 89.0 fL Normal 80.0-100.0 [facility] Comment on above: Performed By: #### 2 034543 #### [facility] [address] [place] [address] Monocytes (Bld) [#/Vol] 0.4 E9/L Normal 0.2-1.0 [facility] Comment on above: Performed By: #### 2 142343 #### [facility] [address] [place] [address] Neutrophils (Bld) [#/Vol] 5.5 E9/L Normal 2.0-7.5 [facility] Comment on above: Performed By: #### 2 734594 #### [facility] [address] [place] [address] Neutrophils/100 WBC (Bld) 67.8 % Normal 36.0-75.0 [facility] Comment on above: Performed By: #### 2 007376 #### [facility] [address] [place] [address] Platelet mean volume (Bld) [Entitic vol] 8.3 fL Normal 6.4-10.8 [facility] Comment on above: Performed By: #### 2 945406 #### [facility] [address] [place] [address] Platelets (Bld) [#/Vol] 267.0 E9/L Normal 150.0-500.0 [facility] Comment on above: Performed By: #### 2 038418 #### [facility] [address] [place] [address] RBC (Bld) [#/Vol] 4.2 E12/L Low 4.3-5.9 [facility] Comment on above: Performed By: #### 2 335075 #### [facility] [address] [place] [address] WBC corrected for nucl RBC Auto (Bld) [#/Vol] 8.0 E9/L Normal 4.0-11.0 [facility] Comment on above: Performed By: #### 2 137797 #### [facility] [address] [place] [address] Free T4on 07-23-2024 Free T4 [Mass/Vol] 0.57 ng/dL Low 0.58-1.64 [facility] Comment on above: Performed By: #### 2 125036 #### [facility] [address] [place] [address] Lyteson 07-23-2024 Anion gap [Moles/Vol] 12 mmol/L Normal 6-16 [facility] Comment on above: Performed By: #### 2 786523 #### [facility] [address] [place] [address] Chloride [Moles/Vol] 105 mmol/L Normal 101-111 [facility] Comment on above: Performed By: #### 2 571651 #### [facility] [address] [place] [address] CO2 [Moles/Vol] 24 mmol/L Normal 21-31 [facility] Comment on above: Performed By: #### 2 462783 #### [facility] [address] [place] [address] Potassium [Moles/Vol] 3.5 mmol/L Normal 3.5-5.3 [facility] Comment on above: Performed By: #### 2 873036 #### [facility] [address] [place] [address] Sodium [Moles/Vol] 137 mmol/L Normal 135-145 [facility] Comment on above: Performed By: #### 2 771128 #### [facility] [address] [place] [address] TSHon 07-23-2024 TSH Qn 2.26 m[IU]/L Normal 0.34-5.60 [facility] Comment on above: Performed By: #### 2 645293 #### [facility] [address] [place] [address] CMPon 06-25-2024 Albumin [Mass/Vol] 3.6 g/dL Normal 3.3-5.0 [facility] Comment on above: Performed By: #### 2 137629 #### [facility] [address] [place] [address] Albumin/Globulin (S) [Mass conc ratio] 1.3 Normal 1.1-2.2 [facility] Comment on above: Performed By: #### 2 469563 #### [facility] [address] [place] [address] ALP [Catalytic activity/Vol] 63 Int._Unit/L Normal 21-98 [facility] Comment on above: Performed By: #### 2 373658 #### [facility] [address] [place] [address] ALT No additional P-5'-P [Catalytic activity/Vol] 13 Int._Unit/L Normal 6-46 [facility] Comment on above: Performed By: #### 2 113666 #### [facility] [address] [place] [address] Anion gap [Moles/Vol] 10 mmol/L Normal 6-16 [facility] Comment on above: Performed By: #### 2 736426 #### [facility] [address] [place] [address] AST [Catalytic activity/Vol] 12 Int._Unit/L Normal 5-43 [facility] Comment on above: Performed By: #### 2 311633 #### [facility] [address] [place] [address] Bilirubin [Mass/Vol] 0.7 mg/dL Normal 0.0-1.1 [facility] Comment on above: Performed By: #### 2 969977 #### [facility] [address] [place] [address] Calcium [Mass/Vol] 8.6 mg/dL Low 8.9-11.1 [facility] Comment on above: Performed By: #### 2 635210 #### [facility] [address] [place] [address] Chloride [Moles/Vol] 104 mmol/L Normal 101-111 [facility] Comment on above: Performed By: #### 2 023501 #### [facility] [address] [place] [address] CO2 [Moles/Vol] 25 mmol/L Normal 21-31 [facility] Comment on above: Performed By: #### 2 388032 #### [facility] [address] [place] [address] Creatinine [Mass/Vol] 0.4 mg/dL Low 0.5-1.3 [facility] Comment on above: Performed By: #### 2 817766 #### [facility] [address] [place] [address] Globulin (S) [Mass/Vol] 2.8 g/dL Normal 1.4-4.0 [facility] Comment on above: Performed By: #### 2 646808 #### [facility] [address] [place] [address] Glucose [Mass/Vol] 97 mg/dL Normal 55-199 [facility] Comment on above: Performed By: #### 2 611051 #### [facility] [address] [place] [address] Potassium [Moles/Vol] 3.4 mmol/L Low 3.5-5.3 [facility] Comment on above: Performed By: #### 2 622308 #### [facility] [address] [place] [address] Protein [Mass/Vol] 6.4 g/dL Normal 6.0-7.8 [facility] Comment on above: Performed By: #### 2 356560 #### [facility] [address] [place] [address] Sodium [Moles/Vol] 136 mmol/L Normal 135-145 [facility] Comment on above: Performed By: #### 2 724177 #### [facility] [address] [place] [address] Urea nitrogen [Mass/Vol] 8 mg/dL Normal 5-21 [facility] Comment on above: Performed By: #### 2 076411 #### [facility] [address] [place] [address] Urea nitrogen/Creatinin e [Mass ratio] 20 No Units Normal 10-20 [facility] Comment on above: Performed By: #### 2 300930 #### [facility] [address] [place] [address] TSHon 06-25-2024 TSH Qn 3.63 m[IU]/L Normal 0.34-5.60 [facility] Comment on above: Performed By: #### 2 381947 #### [facility] [address] [place] [address] eGFRon 06-25-2024 eGFR 142 mL/min/1.73 m2 Normal >=59 [facility] Comment on above: Order Comment: Order added by Discern Expert. Performed By: #### 1 [id number] #### [facility] [address] [place] [address] TSHon 05-31-2024 TSH Qn 1.99 m[IU]/L Normal 0.34-5.60 [facility] Comment on above: Performed By: #### 2 597260 #### [facility] [address] [place] [id number] TSHon 05-01-2024 TSH Qn 1.54 m[IU]/L Normal 0.34-5.60 [facility] Comment on above: Performed By: #### 2 206516 #### [facility] [address] [place] [address] Consent for Treatmenton Consent for Treatment [id number] F Normal [facility] Physician Orderon 04-04-2024 Physician Order [id number]#1.00TI FF Normal [facility] TSHon 04-04-2024 TSH Qn 2.73 m[IU]/L Normal 0.34-5.60 [facility] Comment on above: Performed By: #### 2 161131 #### [facility] [address] [place] [address] XR Spine Cervical 4 or 5 Vie [...] mGy = . DAP = . Normal [facility] XR Spine Thoracic 3 Viewson [...] mGy = . DAP = . Normal [facility] Physician Orderon 09-15-2023 Physician Order [id number]#1.00T IFF Normal [facility] T4 Free SerPl-mCncon 023 Free T4 [Mass/Vol] 1.2 ng/dL Normal 0.9-1.7 [facility] Comment on above: Order Comment: Speci men Type: BLOOD SPECIMEN Ordering Facility: [facility] Address: [address] [place] [address] Performed By: #### 3 024-7, 3016-3 #### [facility] CLIA [id number] [address] [place] [address] [place] TSH SerPl-aCncon 08-18-2023 TSH Qn 2.280 m[IU]/L Normal 0.270-4.200 [facility] Comment on above: Order Comment: Speci men Type: BLOOD SPECIMEN Ordering Facility: [facility] Address: [address] [place] [address] Result Comment: If t he patient is , TSH reference range varies by gestational period: First Trimester (weeks 9-12): 0.180-2.990 mIU/L Second Trimester: 0.110-3.980 mIU/L Third Trimester: 0.480-4.710 mIU/L Noe Ramon et al. A Practical Approach for the Verifications and Determination of Site- and Trimester-Specific Reference Intervals for Thyroid Function tests in . Thyroid, 2019:29:3:412-420. Gregor E, et al. 2017 Guidelines of the Citizen [place] Thyroid Association for the Diagnosis and Management of Thyroid Disease during and the . Thyroid, 2017:27:3:315-389. Performed By: #### 3 024-7, 3016-3 #### [facility] CLIA [id number] [address] [place] [address] [place] Consent for Treatmenton 09-0 Consent for Treatment [id number]#1.00CD: 127 Normal [facility] US Renalon 07-08-2023 US Renal [...] M.D. Transcribed by: MORENO Technologist: EMILY Normal [facility] XR Abdomen 1 Viewon 07-08-20 XR Abdomen [...] mGy = . DAP = . Normal [facility] Ambulatory Visit Summaryon 0 06-21-2023 Ambulatory Visit Summary EMMY DALE :2000 Visit Date:06/21/2023 Ambulatory Visit Instructions Your Diagnosis Urinary crystals Recurrent UTI Urethral stricture Gross hematuria Tests Performed Urnls Dip Stick Auto w/o Microscopy POC 59880 Your Care Team Attending Physician - SOBEIDA [...] pt. Where: [address] [place] [address] You Need to Complete the Following US Renal, *Est. 06/21/23 due within 1 months, Routine, Order for future visit, Transport Mode: Ambulatory, Reason: Other (please specify), Reason: Kidney Stones, No, Kidney stones, pp_set_radiology_subspec ialty, Millan - [facility] XR Abdomen 1 View, *Est. 06/21/23 due [...] Urnls Dip Stick Auto w/o Microscopy POC 92262 (06/21/2023) Bilirubin Urine Dipstick - Negative Blood Urine Dipstick - Negative Glucose Urine Dipstick - Negative Ketones Urine Dipstick - Negative Leukocytes Urine Dipstick - Negative Nitrite Urine Dipstick - Negative Protein Urine Dipstick - Negative Specific [place] Urine Dipstick - 1.010 Urine Appearance Urine [...] ? 8 oz (237 mL) of milk, rrzfrvw-anojmkrnsdic-pzm ry milk, and calcium-fortifiedfruit juice. Calcium-fortified means [...] ? 8 oz (237 mL) of milk, sniddjf-msoetpmcqecy-pmm ry milk, and calcium-fortifiedfruit juice. Calcium-fortified means [...] Spinach (cooked), rhubarb, beets, sweet potatoes, and Micronesian chard. ? Peanuts. ? Potato chips, spanish fries, and baked potatoes with skin on. ? Nuts and nut products. ? Chocolate. ? If you regularly take a diuretic medicine, make sure to eat at least 1 or 2 servings of fruits or vegetables that are high in potassium each day. These include: ? Avocado. ? Banana. ? [place], prune, carrot, or tomato juice. ? Baked [...] fish oil, or vitamin B6. ? Take pxnx-irp-ezwntea and prescription medicines only as told by your health care provider. These include supplements. What foods should I limit? Limit your in (more content not included)... Normal [facility] Urology Office/Clinic Noteon 06-21-2023 Urology [...] pass. Will send CORDELIA and KUB to [facility] to see if any persistent [...] Urnls Dip Stick Auto w/o Microscopy POC 72191 4. Gross hematuria (R31.0: Gross hematuria) CORDELIA [...] When Contact Information SOBEIDA THOMPSON PA-C, URL [address] [place] [address] Additional Instructions: will call pt. Patient Education [...] History Cystour (more content not included)... Normal [facility] Comment on above: Result Comment: Elec tronically Signed By: SOBEIDA THOMPSON PA-C\.br\Date and Time Signed: 06/21/23 12:44 EDT\.br\Electronically Co-Signed By: Laura Loubr\Date and Time Co-Signed: 06/21/23 12:25 EDT PAP [id number] 06-07-2023 Cytology report Cyto stain Doc (Cvx/Vag) Note Invalid Interpretation Code [facility] Comment on above: Result Comment: TEST S RESULT FLAG UNITS REF RANGE LAB Clinician Provided Cytology Information Source.............Endocervix No. of containers..01 ThinPrep Vial DIAGNOSIS: 01 NEGATIVE FOR INTRAEPITHELIAL LESION OR MALIGNANCY. Specimen adequacy: 01 Satisfactory for evaluation. Endocervical and/or squamous metaplastic cells (endocervical component) are present. Performed by: Clif Bolaños, Vascular Technologist Sonographer (ASCP) . 01 Note: Note 01 The [...] High <-Panic Low,>-Panic High,A-Abnormal,AA-Critical Abnormal Performed at: [facility] [address] Lisa Ellington MD, Performed at: [facility] [address] KELSEA Walsh [phone] [id number] MD Chandana Gonzalez Performed By: #### 3 [id number] ####[facility] [address] [place] [address] Consent for Treatmenton Consent for Treatment [id number]: 127 Normal [facility] Heart and Vascular Office/Cl inic [...] but unfortunately she was called by the embroidery designer and told that it was not working. [...] her Sy (more content not included)... Normal [facility] Comment on above: Result Comment: Elec tronically Signed By: SAMUEL VELAZQUEZ, Benjamin Le.br\Date and Time Signed: 06/01/23 14:25 EDT PAP [id number] 06-01-2023 Collection Technique BRUSH-SPATULA Normal [facility] Comment on above: Performed By: #### 3 [id number] ####[facility] [address] [place] [address] Gynecological Body Site ENDOCERVIX Normal [facility] Comment on above: Performed By: #### 3 [id number] ####[facility] [address] [place] [address] Physician Orderon 06-01-2023 Physician Order [id number]#1.00CD :127 [facility] Physician Order [id number]#1.00CD: 127 [facility] C Urineon 05-27-2023 Bacteria identified Cx Nom (U) Microbiology PROCEDURE: Urine Culture [R1] SOURCE: U CleanCatch BODY SITE: COLLECTED DATE/TIME: 05/25/2023 15:25 EDT RECEIVED DATE/TIME: 05/25/2023 16:39 EDT START DATE/TIME: 05/25/2023 16:39 EDT FREE TEXT SOURCE: YOSELIN METAL TREATER, LYNDON DALAL METAL TREATER, LYNDON FINAL REPORTS Final Report [] Verified [...] Locations R1: This test was performed at: [facility], [address] [place], [address]- , [place], Normal [facility] Comment on above: Performed By: #### 2 011663 ####[facility] [address] [place] [address] T4 Free SerPl-mCncon 023 Free T4 [Mass/Vol] 1.2 ng/dL Normal 0.9-1.7 [facility] Comment on above: Order Comment: Rozina florez Type: BLOOD SPECIMEN Ordering Facility: [facility] Address: [address] [address] Performed By: #### 3 024-7, 3016-3 #### [facility] CLIA [id number] OF [facility] TSH SerPl-aCncon 05-26-2023 TSH Qn 2.260 m[IU]/L Normal 0.270-4.200 [facility] Comment on above: Order Comment: Rozina florez Type: BLOOD SPECIMEN Ordering Facility: [facility] Address: [address] [address] Result Comment: If t he patient is , TSH reference range varies by gestational period: First Trimester (weeks 9-12): 0.180-2.990 mIU/L Second Trimester: 0.110-3.980 mIU/L Third Trimester: 0.480-4.710 mIU/L Noe Ramon et al. A Practical Approach for the Verifications and Determination of Site- and Trimester-Specific Reference Intervals for Thyroid Function tests in . Thyroid, 2019:29:3:412-420. Gregor E, et al. 2017 Guidelines of the Citizen Of The [place] Thyroid Association for the Diagnosis and Management of Thyroid Disease during and the . Thyroid, 2017:27:3:315-389. Performed By: #### 3 024-7, 3016-3 #### [facility] CLIA [id number] [address] [place] [address] [place] Consent for Treatmenton 05-01 Consent for Treatment [id number]: 127 Normal [facility] Physician Orderon 05-25-2023 Physician Order [id number]#[id number]:12 7 Normal [facility] Urinalysison 05-25-2023 Bacteria LM Ql (Urine sed) 2+ /HPF Abnormal Trace [facility] Comment on above: Performed By: #### 1 [id number] ####[facility] [address] [place] [address] Bilirubin Ql (U) Negative Normal Negative [facility] Comment on above: Performed By: #### 1 [id number] ####[facility] [address] [place] [address] Clarity (U) SL CLOUDY Abnormal Clear [facility] Comment on above: Performed By: #### 1 [id number] ####[facility] [address] [place] [address] Color (U) YELLOW Normal Yellow [facility] Comment on above: Performed By: #### 1 [id number] ####[facility] [address] [place] [address] Crystals LM Ql (Urine sed) Present Normal [facility] Comment on above: Performed By: #### 1 [id number] ####[facility] [address] [place] [address] Epithelial cells.squamous LM.HPF (Urine sed) [#/Area] 0-2 Normal 0-2 [facility] Comment on above: Performed By: #### 1 [id number] ####[facility] [address] [place] [address] Glucose Test strip (U) [Mass/Vol] Negative Normal Negative [facility] Comment on above: Performed By: #### 1 [id number] ####[facility] [address] [place] [address] Hemoglobin Ql (U) 2+ Abnormal Negative [facility] Comment on above: Performed By: #### 1 [id number] ####[facility] [address] [place] [address] Ketones (U) [Mass/Vol] Negative Normal Negative [facility] Comment on above: Performed By: #### 1 [id number] ####[address] [address] [place].plasma/Lit hium.RBC (Bld) [Mass ratio] 0-3 Normal 0-3 [facility] Comment on above: Performed By: #### 1 [id number] ####[address] [address] Mucus Ql (Urine sed) TRACE Normal [facility] Comment on above: Performed By: #### 1 [id number] ####[address] [address] Nitrite Ql (U) Positive Abnormal Negative [facility] Comment on above: Performed By: #### 1 [id number] ####[address] [address] pH (U) 6.0 [pH] Invalid Interpretation Code 5.0-9.0 [facility] Comment on above: Performed By: #### 1 [id number] ####[address] [address] Protein (U) [Mass/Vol] Negative Normal Negative [facility] Comment on above: Performed By: #### 1 [id number] ####[address] [address] Specific gravity (U) [Rel density] 1.010 Invalid Interpretation Code 1.005-1.030 [facility] Comment on above: Performed By: #### 1 [id number] ####[address] [address] Type of Urine collection method Clean Catch Normal [facility] Comment on above: Performed By: #### 1 [id number] ####[address] [address] Urobilinogen Qn (U) 0.2 {Catarino'U}/dL Normal 0.0-1.0 [facility] Comment on above: Performed By: #### 1 [id number] ####[facility] [address] [place] [address] WBC Auto Ql (U) 1+ Abnormal Negative [facility] Comment on above: Performed By: #### 1 [id number] ####[facility] [address] [place] [address] WBC LM.HPF (Urine sed) [#/Area] 26-30 Abnormal 0-5 [facility] Comment on above: Performed By: #### 1 [id number] ####[facility] [address] [place] [address] Consent for Treatmenton 04-30 Consent for Treatment [id number]: 127 Normal [facility] Consent for Treatmenton Consent for Treatment [id number]: 127 Normal [facility] Heart and Vascular Office/Cl inic [...] 1 month. (more content not included)... Normal [facility] Comment on above: Result Comment: Elec tronically Signed By: Samuel VELAZQUEZ, Benjamin Lopez\.br\Date and Time Signed: 05/05/23 16:11 EDT Physician Orderon 05-05-2023 Physician Order [id number] :127 Normal [facility] Stress EKG Tracingson 2022 Stress EKG Tracings [id number]#1.00CD: 127 [facility] Consent for Treatmenton 03-31 Consent for Treatment [id number]: 127 Normal [facility] T3Free SerPl-mCncon 04-06-20 23 Free T3 [Mass/Vol] 3.3 pg/mL Normal 2.3-4.1 [facility] Comment on above: Order Comment: Speci men Type: BLOOD SPECIMEN Ordering Facility: [facility] Address: [address] [place] [address] Performed By: #### 3 051-0, 3024-7, 3016-3 #### [facility] CLIA [id number] [address] [place] [address] [place] T4 Free SerPl-mCncon 023 Free T4 [Mass/Vol] 1.4 ng/dL Normal 0.9-1.7 [facility] Comment on above: Order Comment: Speci men Type: BLOOD SPECIMEN Ordering Facility: [facility] Address: [address] [place] [address] Performed By: #### 3 051-0, 3024-7, 3016-3 #### [facility] CLIA [id number] [address] [place] [address] OF SID THYROGLOBULIN ABon Thyroglobulin Ab Qn 1.8 [IU]/mL Normal <4.0 [facility] Comment on above: Order Comment: Speci men Type: BLOOD SPECIMEN Ordering Facility: [facility] Address: [address] [place] [address] Result Comment: The Thyroglobulin Antibody test was performed using the [employer] DXI paramagnetic particle chemiluminescent immunoassay method. Results obtained with different assay methods or kits cannot be used interchangeably. Performed By: #### T JASON #### [facility] CLIA [id number] [address] [place] [address] [place] THYROID PEROXIDASE ANTIBODY BLOODon 04-06-2023 [place] 4572.0 [IU]/mL High <5.6 [facility] Comment on above: Order Comment: Rozina florez Type: BLOOD SPECIMEN Ordering Facility: [facility] Address: [address] [place] [address] Result Comment: Thyr oid Peroxidase Antibody test is used as an aid in diagnosis of autoimmune thyroid disease. Clinical correlation is required. Performed By: #### M LEONORO #### [facility] CLIA [id number] [address] [facility] [address] [place] TSH SerPl-aCncon 04-06-2023 TSH Qn 6.050 m[IU]/L High 0.270-4.200 [facility] Comment on above: Order Comment: Rozina florez Type: BLOOD SPECIMENOrdering Facility: [facility] Address: [address] [place] [address] Result Comment: If t he patient is , TSH reference range varies by gestational period: First Trimester (weeks 9-12): 0.180-2.990 mIU/L Second Trimester: 0.110-3.980 mIU/L Third Trimester: 0.480-4.710 mIU/L Noe Ramon et al. A Practical Approach for the Verifications and Determination of Site- and Trimester-Specific Reference Intervals for Thyroid Function tests in . Thyroid, 2019:29:3:412-420. Gregor Banegas, et al. 2017 Guidelines of the Citizen Of The [place] Thyroid Association for the Diagnosis and Management of Thyroid Disease during and the . Thyroid, 2017:27:3:315-389. Performed By: #### 3 051-0, 3024-7, 3016-3 ####[facility] [id number] [address] OF [facility] CNOVon 03-08-2023 CNOV Office Visit (ENDOLN ) -------- EMMY DALE ([id number]) 1 F Date Time Provider Department 03/08/23 [...] Arthritis Father in blood . was at [facility] when baby thought to be [...] (more content not included)... Normal [facility] Vital Signs Date Time Vital Sign Value Performing Clinician Facility 09-03-2024 08:55-0500 Body weight 103.33 kg Dami Ajith DO Work Phone: [facility] 09-03-2024 08:55-0500 Diastolic blood pressure 72 mm[Hg] Dami Ajith DO Work Phone: [facility] 09-03-2024 08:55-0500 Systolic blood pressure 118 mm[Hg] Dami Ajith DO Work Phone: [facility] 08-27-2024 08:50-0400 Body weight 104.33 kg Dami Ajith DO Work Phone: [facility] 08-27-2024 08:50-0400 Diastolic blood pressure 68 mm[Hg] Dami Ajith DO Work Phone: [facility] 08-27-2024 08:50-0400 Systolic blood pressure 110 mm[Hg] Dami Ajith DO Work Phone: [facility] 08-14-2024 09:36-0400 Body weight 101.61 kg Dami Ajith DO Work Phone: [facility] 08-14-2024 09:36-0400 Diastolic blood pressure 70 mm[Hg] Dami Ajith DO Work Phone: [facility] 08-14-2024 09:36-0400 Systolic blood pressure 120 mm[Hg] Dami Ajith DO Work Phone: [facility] 07-31-2024 08:55-0400 Body weight 99.34 kg Dami Ajith DO Work Phone: [facility] 07-31-2024 08:55-0400 Diastolic blood pressure 68 mm[Hg] Dami Ajith DO Work Phone: [facility] 07-31-2024 08:55-0400 Systolic blood pressure 112 mm[Hg] Dami Canseco DO Work Phone: [facility] 09-15-2023 13:30-0500 Body height 162.56 cm Lyndon Easterwood Other [facility] Other 09-15-2023 13:30-0500 Body mass index (BMI) [Ratio] 30.21 kg/m2 Lyndon Easterwood Other [facility] Other 09-15-2023 13:30-0500 Body weight 79.83 kg Lyndon Easterwood Other [facility] Other 09-15-2023 13:30-0500 Diastolic blood pressure 68 mm[Hg] Lyndon Easterwood Other [facility] Other 09-15-2023 13:30-0500 Respiratory rate 18 /min Lyndon Easterwood Other [facility] Other 09-15-2023 13:30-0500 SaO2% (BldA) [Mass fraction] 99 % Lyndon Easterwood Other [facility] Other 09-15-2023 13:30-0500 Systolic blood pressure 118 mm[Hg] Lyndon Easterwood Other [facility] Other 07-12-2023 09:15-0400 Body height 162.56 cm Lyndon Easterwood Other [facility] Other 07-12-2023 09:15-0400 Body mass index (BMI) [Ratio] 29.86 kg/m2 Lyndon Easterwood Other [facility] Other 07-12-2023 09:15-0400 Body temperature 98.6 [degF] Lyndon Easterwood Other [facility] Other 07-12-2023 09:15-0400 Body weight 78.93 kg Lyndon Easterwood Other [facility] Other 07-12-2023 09:15-0400 Diastolic blood pressure 70 mm[Hg] Lyndon Easterwood Other [facility] Other 07-12-2023 09:15-0400 Respiratory rate 20 /min Lyndon Easterwood Other [facility] Other 07-12-2023 09:15-0400 SaO2% (BldA) [Mass fraction] 98 % Lyndon Easterwood Other [facility] Other 07-12-2023 09:15-0400 Systolic blood pressure 112 mm[Hg] Lyndon Easterwood Other [facility] Other 05-25-2023 17:30-0400 Body height 162.56 cm Lyndon [employer] Other [facility] Other 05-25-2023 17:30-0400 Body mass index (BMI) [Ratio] 30.04 kg/m2 Lyndon Easterwood Other [facility] Other 05-25-2023 17:30-0400 Body temperature 98.2 [degF] Lyndon Easterwood Other [facility] Other 05-25-2023 17:30-0400 Body weight 79.38 kg Lyndon [employer] Other [facility] Other 05-25-2023 17:30-0400 Diastolic blood pressure 72 mm[Hg] Lyndon Easterwood Other [facility] Other 05-25-2023 17:30-0400 Respiratory rate 20 /min Lyndon Easterwood Other [facility] Other 05-25-2023 17:30-0400 SaO2% (BldA) [Mass fraction] 99 % Lyndon Joseerrick Other [facility] Other 05-25-2023 17:30-0400 Systolic blood pressure 110 mm[Hg] Lyndon Easterwood Other [facility] Other 03-08-2023 16:13-0400 Body weight 83.92 kg Martina Rodriguez MD, PhD Work Phone: [facility] 03-08-2023 16:13-0400 Diastolic blood pressure 76 mm[Hg] Martina Rodrgiuez MD, PhD Work Phone: [facility] 03-08-2023 16:13-0400 Systolic blood pressure 116 mm[Hg] Martina Rodriguez MD, PhD Work Phone: [facility] 08-05-2022 16:00-0400 Body height 162.56 cm Lyndon Dalal Other [facility] Other 08-05-2022 16:00-0400 Body mass index (BMI) [Ratio] 32.78 kg/m2 Lyndon Joseerwood Other [facility] Other 08-05-2022 16:00-0400 Body temperature 98 [degF] Lyndon Easterwood Other [facility] Other 08-05-2022 16:00-0400 Body weight 86.64 kg Lyndon Dalal Other [facility] Other 08-05-2022 16:00-0400 Diastolic blood pressure 76 mm[Hg] Lyndon Dalal Other [facility] Other 08-05-2022 16:00-0400 Respiratory rate 20 /min Lyndon Dalal Other [facility] Other 08-05-2022 16:00-0400 SaO2% (BldA) [Mass fraction] 99 % Lyndon Dalal Other [facility] Other 08-05-2022 16:00-0400 Systolic blood pressure 122 mm[Hg] Lyndon Dalal Other [facility] Other Encounters Encounter Date Encounter Type Care [...] 07-23-2024 End: 07-23-2024 ambulatory Dami R AJITH Facility:[facility] Start: 07-19-2024 End: 07-19-2024 ambulatory LELE ALEJO Not Available Start: 07-05-2024 End: 07-05-2024 ambulatory DAMI AJITH Not Available Start: 06-25-2024 End: 06-25-2024 ambulatory DAMI AJITH Not Available Start: 06-25-2024 End: 06-25-2024 ambulatory LELE ALEJO Facility:[facility] Start: 06-12-2024 End: 06-12-2024 ambulatory DAMI R AJITH [facility] Start: 06-04-2024 End: 06-04-2024 ambulatory LELE MELO Not Available Start: 05-14-2024 End: 05-14-2024 ambulatory DAMI R AJITH [facility] Start: 05-08-2024 End: 05-08-2024 ambulatory DAMI AJITH Not Available Start: 04-09-2024 End: 04-09-2024 ambulatory DAMI AJITH Not Available Start: 04-04-2024 ambulatory Dami R AJITH Facility: [facility] Start: 03-12-2024 End: 03-12-2024 ambulatory DAMI AJITH Not Available Start: 02-24-2024 End: 02-24-2024 ambulatory DAMI AJITH Not Available Start: 12-04-2023 End: 12-04-2023 ambulatory Lyndon Joseerwood Other [facility] Other Start: 12-04-2023 Encounter by [email or web address] r link Lyndon Garciaerwood [facility] Start: 11-05-2023 End: 11-05-2023 ambulatory Lyndon Easterwood Other [facility] Other Start: 11-05-2023 Encounter by [email or web address] r link Lyndon Garciaerwood [facility] Start: 10-25-2023 End: 10-25-2023 ambulatory Lyndon J Joseerwood Facility:[facility] Start: 10-10-2023 End: 10-10-2023 ambulatory Lyndon Easterwood Other [facility] Other Start: 10-10-2023 Telephone encounter Lyndon Joseerwood [facility] Start: 09-26-2023 End: 09-26-2023 ambulatory Lyndon Easterwood Other [facility] Other Start: 09-26-2023 Telephone encounter Lyndon Joseerwood [facility] Start: 09-18-2023 End: 09-18-2023 ambulatory Lyndon Easterwood Other [facility] Other Start: 09-18-2023 Telephone encounter Lyndon Fallmedina [facility] Start: 09-15-2023 End: 09-15-2023 ambulatory LYNDON [facility] Other Start: 09-15-2023 [facility] Start: 08-18-2023 End: 08-18-2023 [facility] Start: 08-05-2023 Get Medical Advice Martina Rodriguez MD, PhD Work Phone: Endocrinology Comment on above: lab orders Start: 07-22-2023 End: 07-22-2023 [facility]ulatory [facility] Other Start: 07-22-2023 [facility]phone [facility] Start: 07-12-2023 End: 07-12-2023 [facility]ulatory [facility] Other Start: 07-12-2023 [facility] Start: 07-12-2023 Telephone encounter Lyndon Fallmedina [facility] Start: 07-08-2023 End: 07-08-2023 ambulatory SOBEIDA THOMPSON Facility:[facility] Start: 06-27-2023 End: 06-27-2023 ambulatory Lyndon Dalal Other [facility] Other Start: 06-27-2023 Telephone encounter Lyndon Fallmedina [facility] Start: 06-21-2023 End: 06-21-2023 ambulatory SOBEIDA THOMPSON Facility:[facility] Start: 06-01-2023 End: 06-01-2023 ambulatory Benjamin BAKER Facility:[facility] Start: 06-01-2023 End: 06-01-2023 ambulatory Bill Kat Facility:[facility] Start: 05-26-2023 End: 05-26-2023 ambulatory LYNDON YOSELIN Facility:[facility] Start: 05-25-2023 End: 05-25-2023 ambulatory LYNDON [facility] Other Start: 05-25-2023 Office outpatient visit 15 minutes Lyndon Joseelham [facility] Start: 05-17-2023 End: 05-17-2023 ambulatory Bejnamin BAKER Facility:[facility] Start: 05-05-2023 End: 05-05-2023 ambulatory Benjamin BAKER Facility:[facility] Start: 04-15-2023 End: 04-15-2023 ambulatory Benjamin BAKER Facility:[facility] Start: 04-06-2023 End: 04-06-2023 ambulatory MARTINA RODRIGUEZ Facility:[facility] Start: 03-08-2023 End: 03-08-2023 ambulatory MARTINA RODRIGUEZ Facility:[facility] Start: 03-08-2023 End: 03-08-2023 Patient encounter procedure Martina Rodriguez MD, PhD Work Phone: Endocrinology Comment on above: Vikki's thyroidi tis (Primary Dx) Start: 02-28-2023 End: 02-28-2023 ambulatory Lyndon Dalal Other [facility] Other Start: 02-28-2023 Telephone encounter Lyndon Dalal [facility] Start: 02-21-2023 End: 02-21-2023 ambulatory 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 Lyndon Dalal Work Phone: [facility] Work Phone: Start: 02-21-2023 End: 02-21-2023 Discharged Recurring 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 Lyndon Dalal Work Phone: [facility] [place] Work Phone: Start: 08-09-2022 End: 08-09-2022 ambulatory Lyndon Dalal Other [facility] Other Start: 08-09-2022 Telephone encounter Lyndon Dalal [facility] Start: 08-05-2022 End: 08-06-2022 Emergency department patient visit Lyndon Dalal Facility:[facility] Start: 08-05-2022 End: 08-05-2022 ambulatory Lyndon Dalal Other [facility] Other Start: 08-05-2022 Office outpatient visit 40 minutes Lyndon Dalal [facility] Procedures Date Procedure Procedure Detail [...] [place] [address] [place] [address] Dami Canseco DO [address], [place] [address] [facility] Start: 09-10-2024 End: 09-10-2024 Patient encounter procedure 09/10/2024 8:40 AM EST Routine [facility] [address] [place] [address] Dami Canseco, DO [address] [place] [address] [facility] Start: 09-03-2024 End: 09-03-2025 Strep B DNA probe, amplification Strep B DNA probe, amplification Lab Routine 36 weeks gestation of Third trimester Expected: 09/03/2024 (Approximate), Expires: 09/03/2025 [facility] Work Phone: Comment on above: Expected: 09/03/2024 (Approximate), Expires: 09/03/2025 Start: 09-03-2024 End: 09-03-2024 Patient encounter procedure 09/03/2024 8:40 AM EST Routine [facility] [address] [place] [id number] Dami Canseco, DO [address], [place] [id number] [facility] Start: 08-27-2024 End: 08-27-2024 Patient encounter procedure 08/27/2024 8:40 AM EDT Routine [facility] [address] [place] [id number] Dami Canseco, DO [address], [place] [id number] [facility] Start: 08-14-2024 End: 08-14-2024 Patient encounter procedure [facility] Comment on above: Arrived Start: 08-06-2024 End: 08-06-2024 Professional / ancillary services management 08/06/2024 8:00 AM EDT Ancillary Procedure [facility] [address] [place] [id number] [facility] Start: 07-31-2024 End: 07-31-2024 Patient encounter procedure 07/31/2024 8:50 AM EDT Routine [facility] [address] [place] [address] Dami Canseco, [address] [place] [id number] Arrived [facility] Comment on above: Arrived Start: 07-01-2024 Influenza vaccination Influenza Vacc ine (#1) [facility] Start: 08-08-2023 End: 10-08-2023 Thyrotropin [Units/volume] in Serum or Plasma TSH BLD Lab Routine Vikki's thyroiditis Expected: 08/08/2023, Expires: 10/08/2023 [facility] Work Phone: Comment on above: Expected: 08/08/2023 , Expires: 10/08/2023 Start: 08-08-2023 End: 10-08-2023 Thyroxine (T4) free [Mass/volume] in Serum or Plasma T4 FREE/FREE THYROX Lab Routine Vikki's thyroiditis Expected: 08/08/2023, Expires: 10/08/2023 [facility] Work Phone: Comment on above: Expected: 08/08/2023 , Expires: 10/08/2023 Start: 07-07-2023 Urine microalbumin profile [facility] Start: 07-01-2023 Covid-19 Vaccine ( season) Covid-19 Vaccine ( season) [facility] Start: 07-01-2023 Influenza vaccination Influenza Vacc ine (#1) [facility] Start: 03-31-2023 End: 05-31-2023 Thyroglobulin Ab [Units/volume] in Serum or Plasma THYROGLOBULIN AB Lab Routine Vikki's thyroiditis Expected: 03/31/2023, Expires: 05/31/2023 [facility] Work Phone: Comment on above: Expected: 03/31/2023 , Expires: 05/31/2023 Start: 03-31-2023 End: 05-31-2023 THYROID PEROXIDASE ANTIBODY BLOOD THYROID PEROXIDASE ANTIBODY BLOOD Lab Routine Vikki's thyroiditis Expected: 03/31/2023, Expires: 05/31/2023 [facility] Work Phone: Comment on above: Expected: 03/31/2023 , Expires: 05/31/2023 Start: 03-31-2023 End: 05-31-2023 Thyrotropin [Units/volume] in Serum or Plasma TSH BLD Lab Routine Vikki's thyroiditis Expected: 03/31/2023, Expires: 05/31/2023 [facility] Work Phone: Comment on above: Expected: 03/31/2023 , Expires: 05/31/2023 Start: 03-31-2023 End: 05-31-2023 Thyroxine (T4) free [Mass/volume] in Serum or Plasma T4 FREE/FREE THYROX Lab Routine Vikki's thyroiditis Expected: 03/31/2023, Expires: 05/31/2023 [facility] Work Phone: Comment on above: Expected: 03/31/2023 , Expires: 05/31/2023 Start: 03-31-2023 End: 05-31-2023 Triiodothyronine (T3) Free [Mass/volume] in Serum or Plasma T3 FREE BLD Lab Routine Vikki's thyroiditis Expected: 03/31/2023, Expires: 05/31/2023 [facility] Work Phone: Comment on above: [...] JULIUS [facility] Start: 2018 HIV SCREENING HIV SCREENING [facility] Start: 2016 Meningococcal B Vacc ine: Consider Based On Risk (2 of 2 - Risk Bexsero 2-dose series) Meningococcal B Vaccine: Consider Based On Risk (2 of 2 - Risk Bexsero 2-dose series) [facility] Start: 2016 MENINGOCOCCAL B: Con level vial marker based on risk (2 of 2 - [...] TO ADULT TRANSITION INITIAL DISCUSSION [facility] Immunizations Immunization Date Immunization Notes Care Provider Fa [facility] 07-19-2022 influenza, injectabl e, quadrivalent, contains preservative Lyndon Easterwood Other [facility] Other 07-19-2022 influenza virus vaccine, unspecified formulation Martina Rodriguez MD, PhD Work Phone: [facility] 12-08-2020 Do not use COVID-19 Pfizer 2 dose Lyndon Easterwood Other [facility] Other 11-17-2020 Do not use COVID-19 Pfizer 2 dose Lyndon Easterwood Other [facility] Other 07-31-2020 influenza, injectabl e, quadrivalent, contains preservative Lyndon Easterwood Other [facility] Other 10-18-2016 influenza, injectabl e, quadrivalent, contains [...] Payer Category Payer Private Health Insurance [id number] 2024 Unknown [id number] 2023 Unknown [id number] 2022 Private Health Insurance [id number] 2022 Self-pay 2020 Private Health Insurance [id number] 2020 Private Health Insurance [id number] 2000 Unknown [id number] 2000 Unknown [id number] 2000 Unknown [id number] 2000 Unknown [id number] 2000 Unknown [id number] 2000 Unknown [id number] 2.16.840.1.416094.3.579.2.727 2000 Unknown [id number] 2.16.840.1.356916.3.579.2.727 2000 Unknown [id number] 2.16.840.1.426880.3.579.2.727 2000 Unknown [id number] 2.16.840.1.671840.3.579.2.727 2000 Unknown [id number] 2.16.840.1.367632.3.579.2.727 2000 Unknown [id number] 2.16.840.1.724967.3.579.2.727 2000 Unknown [id number] 2.16.840.1.216912.3.579.2.1286 2000 Unknown [id number] 2.16.840.1.509593.3.579.2.1286 2000 Unknown [id number] 2.16.840.1.706611.3.579.2.1286 2000 Unknown [id number] 2.16.840.1.681952.3.579.2.727 2000 Unknown [id number] 2.16.840.1.822115.3.579.2.727 2000 Unknown [id number] 2.16.840.1.025624.3.579.2.9 2000 Unknown [id number] 2.16.840.1.463421.3.579.2.1258 2000 Unknown [id number] 2.16.840.1.406824.3.579.2.9 2000 Unknown [id number] 2.16.840.1.393147.3.579.2.1258 2000 Unknown [id number] 2.16.840.1.837710.3.579.2.9 2000 Unknown [id number] 2.16.840.1.944277.3.579.2.1258 2000 Unknown [id number] 2.16.840.1.741327.3.579.2.9 2000 Unknown [id number] 2.16.840.1.208018.3.579.2.1258 2000 Unknown [id number] 2.16.840.1.880411.3.579.2.1258 2000 Unknown [id number] 2.16.840.1.964087.3.579.2.1258 2000 Unknown [id number] 2.16.840.1.686382.3.579.2.1259 2000 Unknown [id number] 2.16.840.1.355012.3.579.2.1259 Private Health Insurance [facility] [id number] Unknown [id number] 2.16.840.1.636306.3.579.2.531 Unknown [facility] Employees [id number] Unknown [id number] 2.16.840.1.595546.3.579.2.531 Social History Date Type Detail Facility Start: 03-08-2023 End: 07-05-2024 Sex Assigned At [facility] [employer] Other Start: 09-27-2014 End: 07-05-2024 Tobacco smoking status PAIS Never smoked tobacco [facility] History of tobacco use Passive smoker [facility] Start: 03-08-2023 Alcohol intake Not Asked [facility] Start: 2000 Sex Assigned At Not on file C [facility] Start: 2000 Sex Assigned At Female F [facility] Start: 03-08-2023 End: 07-05-2024 History of [...] 4 mg, Oral, Every 6 hours PRN Kkdtsidd-Jbq-Nm-FA ( 1 + IRON PO) ALLERGIES Allergies [...] Rick Heart failure Father Rick Hyperlipidemia Father Rcik Hypertension Father Rick Diabetes Maternal Grandfather Ray [...] nursing note reviewed. Exam conducted with a physician assistant primary care present. Vitals: There is no height or [...] Canseco DO documented in this encounter [facility] 08-27-2024 History of Presen t illness Narrative [...] 4 mg, Oral, Every 6 hours PRN Esbegqlq-Xtd-Py-FA ( 1 + IRON PO) ALLERGIES Allergies [...] nursing note reviewed. Exam conducted with a physician assistant primary care present. Vitals: There is no height or [...] Canseco DO documented in this encounter [facility] 08-14-2024 History of Presen t illness Narrative [...] 4 mg, Oral, Every 6 hours PRN Ixjgxllm-Puz-Wr-FA ( 1 + IRON PO) ALLERGIES Allergies [...] nursing note reviewed. Exam conducted with a physician assistant primary care present. Vitals: There is no height or [...] Canseco DO documented in this encounter [facility] 07-31-2024 History of Presen t illness Narrative [...] 4 mg, Oral, Every 6 hours PRN Hlrxljts-Cai-Jf-FA ( 1 + IRON PO) ALLERGIES Allergies [...] Canseco DO documented in this encounter [facility] 09-15-2023 Evaluation note Encounter Date Diagnosis Assessment [...] in office today for physical therapy to [place] location through [facility]. Discussed continuation of lben-pfg-cvowzrm medications as needed. Take muscle relaxer as [...] in office today for physical therapy to [facility] through [facility]. Discussed continuation of sxdz-zhl-mhdjpxv medications as needed. Take muscle relaxer as [...] that were not corrected during review process. [facility] Other 09-12-2023 Evaluation note* Encounter Date Diagnosis [...] that were not corrected during review process. [facility] Other 07-26-2023 Evaluation note* Encounter Date Diagnosis [...] that were not corrected during review process. [facility] Other 06-18-2023 NoteEchocardiology Procedure Exam Date/Time Accession # Ordering ECG Stress Exercise 04/15/2023 08:43 EDT [id number] Benjamin Baker MD CPT code 93499 Reason for Exam (ECG Stress Exercise) I95.1;Dizziness [...] Benjamin Baker MD Transcribed by: angela Technologist: [facility]06-16-2023 Note Echocardiology Procedure Exam Date/Time Accession # Ordering DrHazel Echo Transthoracic 04/15/2023 09:42 EDT [id number] Benjamin Baker MD Complete CPT code 60097 21425 Reason for Exam (Echo Transthoracic Complete) I95.9;Hypotension Report [facility] [address] [place] [address] Adult Echocardiogram Report Name: EMMY DALE Study Date: 04/15/2023 09:02 AM BP: 105/71 mmHg Patient Location: [facility] HR: 75 : 2000 Gender: Female Height: 63 in Age: 22 yrs Ethnicity: T Weight: 178 lb Reason For Study: Hypotension BSA: 1.8 m2 History: No cardiac history per patient Ordering Physician: Samuel^Benjamin^John Referring Physician: Benjamin Baker Performed By: Jonelle Alvarez [facility] Interpretation Summary Ejection Fraction = 60-65%. [...] Benjamin Baker MD Transcribed by: YOVANI Technologist: [facility]05-09-2023 Note HNO ID: [id number] Author: Martina Rodriguez MD, PhD Service: ? [...] Arthritis Father in blood . was at [facility] when baby thought to be [...] monitor thyroid (more content not included)...[facility] 03-08-2023 History of Present illness Narrative* Martina [...] Arthritis Father in blood . was at [facility] when baby thought to be [...] I would recommend referral to a different injection molding machine setter. Patient does have the name of an injection molding machine setter that she would like referred to. We will put that referral in today. Dr. Roger Kim - [facility] Endocrinology, [facility] February, Dizziness (ICD-10 - R42) Discussed [...] that were not corrected during review process. [facility] Other 10-06-2022 Evaluation note* Encounter Date Diagnosis [...] to ER, I highly recommend she call [employer]IND[employer]ACH[employer] SET UP MECHANIC the second she leaves our office to follow-up.She needs to let them know about her concerns.I explained to her that even though she may assume that her CO[employer] WINDING MACH[employer] SET UP MECHANIC will not listen her , I still want her to reach out to that office and explained to them her current concerns. She wants to know what the immediate treatment would be and work-up for spinal headache and possible leak however I cannot provide her with this information as I am not CO[employer] W[employer] SET UP MECHANIC. Jul, Hip pain (ICD-10 - M25.559) [...] I did discuss with her concerns over mmsi-fly-cadtgcg medications during breast-feeding. Discussed recommendations currently and please bring this up to [employer] SET UP MECHANIC as well for further recommendations. Does [...] I would like her to follow-up with [employer] SET UP MECHANIC or go to ER regarding this dizziness and we can follow-up in office after. If nothing comes from an CO[employer] W[employer]ING MACH[employer] SET UP MECHANIC/spinal headache/spinal leak standpoint, we can order [...] that were not corrected during review process. [facility] Other 11-10-2009 History of Past illness Narrative* Problem Noted Date Resolved Date Constipation 09/09/2009 08/28/2014 documented as of this encounter (statuses as of 03/09/2023) [facility]11-10-2009 History of Past illness Narrative* Problem Noted Date Diagnosed Date Resolved Date Constipation 09/09/2009 08/28/2014 documented as of this encounter (statuses as of 08/09/2023) [facility] InformationN[facility] [employer] Other Evaluation note* Diagnosis Vikki's thyroiditis- Primary Chronic lymphocytic thyroiditis documented [facility] noteNo assessment information availableFort [facility] Work Phone: Evaluation note* Diagnosis Vikki's thyroiditis- Primary Chronic lymphocytic thyroiditis [facility]* Diagnosis 31 weeks gestation of Third trimester state, incidental documented in this encounter [facility] HealthcareEvaluation note* Diagnosis 33 weeks gestation of Third trimester state, incidental documented in this encounter [facility] HealthcareEvaluation note* Diagnosis Third trimester state, incidental 35 weeks gestation of documented in this encounter [facility] HealthcareEvaluation note* Diagnosis 36 weeks gestation of Third trimester state, incidental documented in this encounter [facility] HealthcareHistory general Narrative - Reported* Type Description Date Medical History Asthma Medical History Vasovagal syndrome- childhood (r esolved) Medical History Exercise-induced asthma Medical History Pityriasis rosea Medical History Tachycardia Medical History Vikki's thyroiditis Medical History Pre-eclampsia Surgical History [place] teeth extract 2016 Surgical History Vaginal childbirth 03/2022 Hospitalization History See surgical hx [facility] Other Hiscieg general Narrative - Reported* Type Description Date Medical History Exercise-induced asthma Medical History Pityriasis rosea Medical History Tachycardia Medical History Vikki's thyroiditis Medical History Asthma Medical History Pre-eclampsia Medical History Hypotension Surgical History [place] teeth extract 2016 Surgical History Vaginal childbirth 03/2022 Hospitalization History See surgical hx [facility] Other Hiscehg general Narrative - Reported* Type Description Date Medical History Exercise-induced asthma Medical History Pityriasis rosea Medical History Tachycardia Medical History Vikki's thyroiditis Medical History Asthma Medical History Pre-eclampsia Medical History Hypotension Medical History GERD (gastroesophageal reflux di sease) Surgical History [place] teeth extract 2017 Surgical History Vaginal childbirth 03/2022 Surgical History EGD/colonoscopy 2011 Hospitalization History See surgical hx [facility] Other Hisxwqq general Narrative - Reported* Type Description Date Medical History Exercise-induced asthma Medical History Pityriasis rosea Medical History Tachycardia Medical History Ivkki's thyroiditis Medical History Asthma Medical History Pre-eclampsia Medical History Hypotension Medical History GERD (gastroesophageal reflux di sease) Medical History Thyromegaly Surgical History [place] teeth extract 2016 Surgical History Vaginal childbirth 03/2022 Surgical History EGD/colonoscopy 2012 Hospitalization History See surgical hx [facility] Other History general Narrative - Reported* Type Description Date Medical History Exercise-induced asthma Medical History Pityriasis rosea Medical History Tachycardia Medical History Vikki's thyroiditis Medical History Asthma Medical History Pre-eclampsia Medical History Hypotension Medical History GERD (gastroesophageal reflux di sease) Medical History Thyromegaly Medical History Other idiopathic scoliosis, thor acic region Surgical History [place] teeth extract 2016 Surgical History Vaginal childbirth 03/2022 Surgical History EGD/colonoscopy 2012 Hospitalization History See surgical hx [facility] Other Summary Purpose Family History No Family [...] gastriti s with hemorrhage (K29.01) Referral Organization [facility] Ava Rivera Referring Provider First Name Lyndon Referring Provider Last Name Yoselin Referring Provider Specialty Nurse Pract itioner Referred Organization [facility] Gastroenterolo gy Referred Provider Patricio Urena Referred Address [address] [place] [phone] Referred Provider Specialty Gastroentero logy Referral Priority Routine General Notes Misti Vivas 023 10:08:56 AM >Received today. [facility] request us to fill out their form and fax to them. They will review the referral and call patient to schedule them. Referral was fax. Misti Vivas 07/12/2023 01:31:38 PM >Per telephone encounter, patient wants to try [facility] Gastro doctors. Sent P2P Reason *FU 03/08 Dr. Hawa Kim - [facility] Endocrinology, [facility]; [employer]- please send this note with 2 previous notes Diagnosis 1 Vikki's thyroidi tis (E06.3) [facility] Referring Provider First Name Lyndon Referring Provider Last Name [facility] Referring Provider Specialty Nurse Pract itwickliffer Referred Organization [facility] Referred Address [address] [place],[address] Referred Provider Specialty Endocrinolog y Referral Priority Routine General Notes Misti Vivas 023 01:21:05 PM >Received today and referral was fax with the [facility] Form. They will review and call patient to schedule Reason *FU 03/08 Dizzines s- TERRENCE; Please send this note with 2 previous notes Diagnosis 1 Dizziness (R42) Referral Organization [facility] sally Rivera Referring Provider First Name Lyndon Referring Provider Last Name [facility] Referring Provider Specialty Nurse Pract itfelecia Referred Organization [facility] Referred Provider Jose Dominguez Referred Address [address] [place],[address] Referred Provider Specialty Neurology Referral Priority Routine [...] section and content) DATE CREATED AUTHOR 08/06/2022 [facility] DATE CREATED AUTHOR AUTHOR'S ORGANIZ ATION 08/20/2023 [facility] DATE CREATED AUTHOR AUTHOR'S ORGANIZ ATION 04/06/2024 [place] [facility] DATE CREATED AUTHOR AUTHOR'S ORGANIZ ATION [facility]/03/2024 [facility] DATE CREATED AUTHOR AUTHOR'S ORGANIZ ATION 05/18/2024 [facility] DATE CREATED AUTHOR AUTHOR'S ORGANIZ ATION 06/14/2024 [facility] DATE CREATED AUTHOR AUTHOR'S ORGANIZ ATION 06/26/2024 [place] [facility] DATE CREATED AUTHOR AUTHOR'S ORGANIZ ATION 07/07/2024 [facility] DATE CREATED AUTHOR AUTHOR'S ORGANIZ ATION 07/24/2024 [facility] DATE CREATED AUTHOR AUTHOR'S ORGANIZ ATION 07/29/2024 [facility] DATE CREATED AUTHOR AUTHOR'S ORGANIZ ATION 08/21/2024 [facility] DATE CREATED AUTHOR AUTHOR'S ORGANIZ ATION 09/04/2024 [facility] dical Specialists EPIC REASON FOR VISIT [...] Care Teams (unrecognized sec tion and content) Exotic Dancer Relationship Specialty Start Date End Date Lyndon Dalal CNP [address] [facility] [address] [address] PCP - General Family Medicine 03/08/23 Lyndon Dalal CNP [address] [facility] [address] [address] Referring Family Medicine 03/04/23 Team Status: Active Member Role Status Dates Lyndon Dalal APRN Primary Care Provider Active Team Status: Inactive Member Role Status Dates Lyndon Dalal APRN Primary Care Provider, Attend ing Provider Active Exotic Dancer Relationship Specialty Start Date End Date Lyndon Dalal CNP [address] [address] PCP - General Family Medicine 03/08/23 Lyndon Dalal CNP [address] [address] Referring Family Medicine 03/04/23 Exotic Dancer Relationship Specialty Start Date End Date Ge Cloud MD [address] [phone] PCP - General Family Medicine 01/25/24 Exotic Dancer Relationship Specialty Start Date End Date Ge Cloud MD [address] [place] [phone] PCP - General Family Medicine 01/25/24 Exotic Dancer Relationship Specialty Start Date End Date Ge Cloud MD [address] [phone] PCP - General Family Medicine 01/25/24 Exotic Dancer Relationship Specialty Start Date End Date Ge Cloud MD [address] [address] PCP - General Family Medicine 01/25/24 Exotic Dancer Relationship Specialty Start Date End Date Ge Cloud MD [address] [phone] PCP - General Family Medicine 01/25/24 Goals [...] BE BASED ON THE PRIMARY CLINICAL RECORDS. [facility]. provides no warranty or guarantee of the accuracy or completeness of information in this document.
--- NOTE | 2024-09-08 08:59 | US_ITS ---
[address] [address] Patient Name: EMMY DALE MRN: [id number] date: 2000 Sex: F Assigned Patient Location: [facility] Current Patient Location: Accession/Order Number: [id number] Exam Date: 09/08/2024 09:10 Report Date: 09/10/2024 07:58 At the request of: ANN GONGORA Procedure: US OB BPP w non-stress EXAMINATION: US OB BPP w non-stress HISTORY: JEFF BORDERLINE LOW O28.8 COMPARISON: No relevant comparison available. TECHNIQUE: Ultrasound biophysical profile was performed in the radiology department. non-reactive stress testing was performed by nursing staff in the birthing center. FINDINGS: BREATHING MOVEMENTS: 2 GROSS BODY MOVEMENTS: 2 TONE: 2 QUALITATIVE AMNIOTIC FLUID VOLUME: 2 PRESENTATION: CEPHALIC HEART RATE: 133.00 bpm AMNIOTIC FLUID VOLUME: 15.7 cm GESTATIONAL AGE: 37 weeks 1 day US/US OB BPP w non-stress IMPRESSION: Total biophysical profile score: 8 Electronically authenticated by: CRHISTINE WALKER Date: 09/10/2024 07:58
[2024-09-08 09:33] VITALS: BP 118/71; PULSE 88
== END 2024-09-08 10:07 | disposition home or self-care (01) ==
LOC: US 07:15 → FBC 08:57
PROVIDERS: PCP Family Medicine; Visit Provider Obstetrics & Gynecology
DX: O99.283 Endocrine, nutritional and metabolic diseases complicating pregnancy, third trimester (principal); O28.8 Other abnormal findings on antenatal screening of mother; Z3A.37 37 weeks gestation of pregnancy
CPT/HCPCS: 76818

== ENCOUNTER 2024-09-12 07:04 | Outpatient (OUT) | payer OTHER, SELFPAY ==
--- OUTSIDE RECORDS SUMMARY | 2024-09-12 07:08 | XMS_ITS | CCD ---
Author Organization [facility] Care Team Providers Care Baker Paint Name Role Phone Lyndon Dalal Primary Care [...] Admitting Unavailable NONE, XXXX Referring Unavailable Benjamin BAEKR Attending Unavailable Benjamin BAKER Referring Unavailable Benjamin [...] EASTERWOOD, LYNDON Primary Care Unavailable MELO, LELE Ramon Attending Unavailable MELO, LELE L Admitting Unavailable MELO, LELE L Attending Unavailable MELO, LELE L Admitting Unavailable Easterwood, Lyndon J Attending Unavailable Easterwood, Lyndon J Primary Care Unavailable Easterwood, Lyndon J Admitting Unavailable AJITH, Dami R Attending Unavailable AJITH, Dami R Admitting Unavailable AJITH, Dami R Admitting Unavailable AJITH, Dami R Attending Unavailable Pedro Luis VELAZQUEZ, Herndon Primary Care Provider AJITH, DAMI Attending Unavailable [...] Sulfonamides (Antibiotic); Translations: [sulfa drugs] Drug Allergy [facility] Repository (6 sources) Sulfonamides (Antibiotic); Translations: [SULFA (SULFONAMIDE ANTIBIOTICS)] Drug allergy (disorder) 5 [facility] Repository (2 sources) Sulfonamide Drug allergy [facility] Other (20 sources) Substance with sulfonamide structure and antibacterial mechanism of action (substance) Drug [facility] (3 sources) Sulfonamides (Antibiotic); Translations: [sulfa drugs] Propensity to adverse reactions (disorder) [facility] Repository Medications Current Medications Medication Drug Class(es) [...] tablet (11 sources) Serotonin-3 Receptor Antagonist Start: 024 take [...] a day for 5 days Aug, Active Ifuqkveq-Gre-Pz-FA ( 1 + IRON PO) (11 sources) Start: 024 Lkoedqhx-Utt-Tk-FA ( 1 + IRON PO) 01/20/2024 Active [...] by fredi th every twenty-four hours Biotin 38925 MCG 1 tablet Orally Once a day OTC Not-Taking/PRN take 1 tablet by fredi th every twenty-four hours Biotin 50638 MCG 1 tablet Orally Once a day OTC Not-Taking take 1 tablet by mouth once [place]ia [place] y Biotin 95528 MCG 1 tablet Orally Once a day OTC Not-Taking BIOTIN ORAL Take by mouth q 24 HR. 0 Active take 1 tablet by mouth once [place] y Biotin 21453 MCG 1 tablet Orally Once a day [...] Comment on above: Take 1 tablet by [facility] once daily. Iodine (14 sources) Iodine 225MCG [...] Probiotic OTC, daily Active lactobacillus rhamnosus gg [id number] unt oral capsule (1 source) Start: 5 End: 3 take 1 capsule by mouth once daily lactobacillus rhamnosus (CULTURELLE) 10 billion cell capsule Indications: Abdominal pain Take 1 capsule by mouth once daily. 30 capsule 2 04/30/2015 03/08/2023 Discontinued Comment on above: Take 1 capsule by mo [facility] once daily. Moringa (14 sources) Moringa 6000MG, [...] Comment on above: Take [address] [facility] once daily. pantoprazole 20 mg [...] UA Negative Negative - 4(70) +++ mg/dL [facility] Blood, UA Negative Negative - 50 Juanito/mcL [facility] Clarity, UA Clear [facility] Color, UA Yellow [facility] Glucose, UA Negative Negative - 1999(110) ++++ mg/dL [facility] Interpretation and review of laboratory results Normal [facility] Ketones, UA Negative Negative - 160(16) ++++ mg/dL [facility] Leukocytes, UA Trace Negative - 500+++ Ken/mcL [facility] Nitrite, UA Negative Negative - Positive [facility] pH, UA 8.5 5 - 9 [facility] Protein, UA Negative Negative - 2000(20) ++++ mg/dL [facility] Spec Grav, UA 1.015 1 - 1.03 [facility] Urobilinogen, UA 0.2 0.2 - 12 mg/dL [facility] Urinalysis macro (dipstick) panel (U)on 08-27-2024 Bilirubin, UA Negative Negative - 4(70) +++ mg/dL [facility] Blood, UA Negative Negative - 50 Juanito/mcL [facility] Clarity, UA Clear [facility] Color, UA Yellow [facility] Glucose, UA Negative Negative - 1999(110) ++++ mg/dL [facility] Interpretation and review of laboratory results Abnormal [facility] Ketones, UA Negative Negative - 160(16) ++++ mg/dL [facility] Leukocytes, UA Trace Negative - 500+++ Ken/mcL [facility] Nitrite, UA Negative Negative - Positive [facility] pH, UA 6.5 5 - 9 [facility] Protein, UA Negative Negative - 1999(20) ++++ mg/dL [facility] Spec Grav, UA 1.015 1 - 1.03 [facility] Urobilinogen, UA 0.2 0.2 - 12 mg/dL [facility] TSHon 08-20-2024 TSH Qn 1.87 m[IU]/L Normal 0.34-5.60 [facility] Comment on above: Performed By: #### 2 [id number] #### [facility] [address] [place] [address] Urinalysis macro (dipstick) panel (U)on 08-14-2024 Bilirubin, UA Negative Negative - 4(70) +++ mg/dL [facility] Blood, UA Negative Negative - 50 Juanito/mcL [facility] Clarity, UA Clear [facility] Color, UA Yellow [facility] Glucose, UA Negative Negative - 1999(110) ++++ mg/dL [facility] Interpretation and review of laboratory results Abnormal [facility] Ketones, UA Negative Negative - 160(16) ++++ mg/dL [facility] Leukocytes, UA Trace Negative - 500+++ Ken/mcL [facility] Nitrite, UA Negative Negative - Positive [facility] pH, UA 6.5 5 - 9 [facility] Protein, UA Negative Negative - 1999(20) ++++ mg/dL [facility] Spec Grav, UA 1.015 1 - 1.03 [facility] Urobilinogen, UA 0.2 0.2 - 12 mg/dL [facility] Urinalysis macro (dipstick) panel (U)on 07-31-2024 Bilirubin, UA Negative Negative - 4(70) +++ mg/dL [facility] Blood, UA Negative Negative - 50 Juanito/mcL [facility] Clarity, UA Clear [facility] Color, UA Yellow [facility] Glucose, UA Negative Negative - 1999(110) ++++ mg/dL [facility] Interpretation and review of laboratory results Abnormal [facility] Ketones, UA Negative Negative - 160(16) ++++ mg/dL [facility] Leukocytes, UA Positive Negative - 500+++ Ken/mcL [facility] Comment on above: small Nitrite, UA Negative Negative - Positive [facility] pH, UA 6.5 5 - 9 [facility] Protein, UA Negative Negative - 1999(20) ++++ mg/dL [facility] Spec Grav, UA 1.010 1 - 1.03 [facility] Urobilinogen, UA 0.2 0.2 - 12 mg/dL [facility] CBC w/ Auto Diffon 4 Basophils/100 WBC (Bld) 0.4 % Normal 0.0-2.0 [facility] Comment on above: Performed By: #### 2 480431 #### [facility] [address] [place] [address] Basophils/Leukocyt es Auto (Bld) [Pure # fraction] 0.0 E9/L Normal 0.0-0.2 [facility] Comment on above: Performed By: #### 2 158111 #### [facility] [address] [place] [address] Eosinophils (Bld) [#/Vol] 0.2 E9/L Normal 0.0-0.5 [facility] Comment on above: Performed By: #### 2 227461 #### [facility] [address] [place] [address] Eosinophils/100 WBC (Bld) 2.9 % Normal 0.0-8.0 [facility] Comment on above: Performed By: #### 2 685339 #### [facility] [address] [place] [address] Erythrocyte distribution width (RBC) [Ratio] 13.6 % Normal 10.9-14.2 [facility] Comment on above: Performed By: #### 2 460051 #### [facility] [address] [place] [address] Hematocrit (Bld) [Volume fraction] 37.3 % Normal 34.0-46.0 [facility] Comment on above: Performed By: #### 2 035015 #### [facility] [address] [place] [address] Hemoglobin (Bld) [Mass/Vol] 12.8 g/dL Normal 12.0-16.0 [facility] Comment on above: Performed By: #### 2 746963 #### [facility] [address] [place] [address] Lymphocytes (Bld) [#/Vol] 1.9 E9/L Normal 1.0-4.0 [facility] Comment on above: Performed By: #### 2 689534 #### [facility] [address] [place] [address] Lymphocytes/100 WBC (Bld) 24.0 % Normal 14.0-50.0 [facility] Comment on above: Performed By: #### 2 394043 #### [facility] [address] [place] [address] MCH (RBC) [Entitic mass] 30.5 pg Normal 27.0-34.0 [facility] Comment on above: Performed By: #### 2 329532 #### [facility] [address] [place] [address] MCHC (RBC) [Mass/Vol] 34.2 g/dL Normal 31.4-36.0 [facility] Comment on above: Performed By: #### 2 585930 #### [facility] [address] [place] [address] MCV (RBC) [Entitic vol] 89.0 fL Normal 80.0-100.0 [facility] Comment on above: Performed By: #### 2 515254 #### [facility] [address] [place] [address] Monocytes (Bld) [#/Vol] 0.4 E9/L Normal 0.2-1.0 [facility] Comment on above: Performed By: #### 2 051008 #### [facility] [address] [place] [address] Neutrophils (Bld) [#/Vol] 5.5 E9/L Normal 2.0-7.5 [facility] Comment on above: Performed By: #### 2 348459 #### [facility] [address] [place] [address] Neutrophils/100 WBC (Bld) 67.8 % Normal 36.0-75.0 [facility] Comment on above: Performed By: #### 2 545429 #### [facility] [address] [place] [address] Platelet mean volume (Bld) [Entitic vol] 8.3 fL Normal 6.4-10.8 [facility] Comment on above: Performed By: #### 2 097781 #### [facility] [address] [place] [address] Platelets (Bld) [#/Vol] 267.0 E9/L Normal 150.0-500.0 [facility] Comment on above: Performed By: #### 2 811318 #### [facility] [address] [place] [address] RBC (Bld) [#/Vol] 4.2 E12/L Low 4.3-5.9 [facility] Comment on above: Performed By: #### 2 787547 #### [facility] [address] [place] [address] WBC corrected for nucl RBC Auto (Bld) [#/Vol] 8.0 E9/L Normal 4.0-11.0 [facility] Comment on above: Performed By: #### 2 858176 #### [facility] [address] [place] [address] Free T4on 07-23-2024 Free T4 [Mass/Vol] 0.57 ng/dL Low 0.58-1.64 [facility] Comment on above: Performed By: #### 2 147000 #### [facility] [address] [place] [address] Lyteson 07-23-2024 Anion gap [Moles/Vol] 12 mmol/L Normal 6-16 [facility] Comment on above: Performed By: #### 2 500416 #### [facility] [address] [place] [address] Chloride [Moles/Vol] 105 mmol/L Normal 101-111 [facility] Comment on above: Performed By: #### 2 172620 #### [facility] [address] [place] [address] CO2 [Moles/Vol] 24 mmol/L Normal 21-31 [facility] Comment on above: Performed By: #### 2 099719 #### [facility] [address] [place] [address] Potassium [Moles/Vol] 3.5 mmol/L Normal 3.5-5.3 [facility] Comment on above: Performed By: #### 2 780000 #### [facility] [address] [place] [address] Sodium [Moles/Vol] 137 mmol/L Normal 135-145 [facility] Comment on above: Performed By: #### 2 542243 #### [facility] [address] [place] [address] TSHon 07-23-2024 TSH Qn 2.26 m[IU]/L Normal 0.34-5.60 [facility] Comment on above: Performed By: #### 2 883138 #### [facility] [address] [place] [address] CMPon 06-25-2024 Albumin [Mass/Vol] 3.6 g/dL Normal 3.3-5.0 [facility] Comment on above: Performed By: #### 2 389985 #### [facility] [address] [place] [address] Albumin/Globulin (S) [Mass conc ratio] 1.3 Normal 1.1-2.2 [facility] Comment on above: Performed By: #### 2 510607 #### [facility] [address] [place] [address] ALP [Catalytic activity/Vol] 63 Int._Unit/L Normal 21-98 [facility] Comment on above: Performed By: #### 2 023899 #### [facility] [address] [place] [address] ALT No additional P-5'-P [Catalytic activity/Vol] 13 Int._Unit/L Normal 6-46 [facility] Comment on above: Performed By: #### 2 223192 #### [facility] [address] [place] [address] Anion gap [Moles/Vol] 10 mmol/L Normal 6-16 [facility] Comment on above: Performed By: #### 2 081447 #### [facility] [address] [place] [address] AST [Catalytic activity/Vol] 12 Int._Unit/L Normal 5-43 [facility] Comment on above: Performed By: #### 2 391282 #### [facility] [address] [place] [address] Bilirubin [Mass/Vol] 0.7 mg/dL Normal 0.0-1.1 [facility] Comment on above: Performed By: #### 2 451377 #### [facility] [address] [place] [address] Calcium [Mass/Vol] 8.6 mg/dL Low 8.9-11.1 [facility] Comment on above: Performed By: #### 2 853197 #### [facility] [address] [place] [address] Chloride [Moles/Vol] 104 mmol/L Normal 101-111 [facility] Comment on above: Performed By: #### 2 028713 #### [facility] [address] [place] [address] CO2 [Moles/Vol] 25 mmol/L Normal 21-31 [facility] Comment on above: Performed By: #### 2 114653 #### [facility] [address] [place] [address] Creatinine [Mass/Vol] 0.4 mg/dL Low 0.5-1.3 [facility] Comment on above: Performed By: #### 2 575901 #### [facility] [address] [place] [address] Globulin (S) [Mass/Vol] 2.8 g/dL Normal 1.4-4.0 [facility] Comment on above: Performed By: #### 2 973152 #### [facility] [address] [place] [address] Glucose [Mass/Vol] 97 mg/dL Normal 55-199 [facility] Comment on above: Performed By: #### 2 439249 #### [facility] [address] [place] [address] Potassium [Moles/Vol] 3.4 mmol/L Low 3.5-5.3 [facility] Comment on above: Performed By: #### 2 001170 #### [facility] [address] [place] [address] Protein [Mass/Vol] 6.4 g/dL Normal 6.0-7.8 [facility] Comment on above: Performed By: #### 2 015958 #### [facility] [address] [place] [address] Sodium [Moles/Vol] 136 mmol/L Normal 135-145 [facility] Comment on above: Performed By: #### 2 516418 #### [facility] [address] [place] [address] Urea nitrogen [Mass/Vol] 8 mg/dL Normal 5-21 [facility] Comment on above: Performed By: #### 2 990515 #### [facility] [address] [place] [address] Urea nitrogen/Creatinin e [Mass ratio] 20 No Units Normal 10-20 [facility] Comment on above: Performed By: #### 2 676592 #### [facility] [address] [place] [address] TSHon 06-25-2024 TSH Qn 3.63 m[IU]/L Normal 0.34-5.60 [facility] Comment on above: Performed By: #### 2 910275 #### [facility] [address] [place] [address] eGFRon 06-25-2024 eGFR 142 mL/min/1.73 m2 Normal >=59 [facility] Comment on above: Order Comment: Order added by Discern Expert. Performed By: #### 1 [id number] #### [facility] [address] [place] [address] TSHon 05-31-2024 TSH Qn 1.99 m[IU]/L Normal 0.34-5.60 [facility] Comment on above: Performed By: #### 2 619926 #### [facility] [address] [place] [address] TSHon 05-01-2024 TSH Qn 1.54 m[IU]/L Normal 0.34-5.60 [facility] Comment on above: Performed By: #### 2 950212 #### [facility] [address] [place] [address] Consent for Treatmenton Consent for Treatment [id number] F Normal [facility] Physician Orderon 04-04-2024 Physician Order [id number]#[id number] FF Normal [facility] TSHon 04-04-2024 TSH Qn 2.73 m[IU]/L Normal 0.34-5.60 [facility] Comment on above: Performed By: #### 2 849432 #### [facility] [address] [place], [place] [address] XR Spine Cervical 4 or 5 Vie [...] Signature): 09/16/2023 8:02 am Signed by: Maximo Kurzt M.D. Transcribed by: MORENO Technologist: JOANNE Technical Comments Radiation Dose: Ka,r in mGy = . DAP = . Normal [facility] XR Spine Thoracic 3 Viewson 09-16-2023 XR [...] mGy = . DAP = . Normal [facility] Physician Orderon 09-15-2023 Physician Order [id number]#[id number] IFF Normal [facility] T4 Free SerPl-mCncon 08-18- 023 Free T4 [Mass/Vol] 1.2 ng/dL Normal 0.9-1.7 [facility] Comment on above: Order Comment: Speci men Type: BLOOD SPECIMEN Ordering Facility: [facility] Address: [address] [place] [address] Performed By: #### 3 024-7, 3016-3 #### [facility] CLIA [id number] [address] [place] [address] [place] TSH SerPl-aCncon 08-18-2023 TSH Qn 2.280 m[IU]/L Normal 0.270-4.200 [facility] Comment on above: Order Comment: Speci men Type: BLOOD SPECIMEN Ordering Facility: [facility] Address: [address] [place] [address] Result Comment: If t he patient is , TSH reference range varies by gestational period: First Trimester (weeks 9-12): 0.180-2.990 mIU/L Second Trimester: 0.110-3.980 mIU/L Third Trimester: 0.480-4.710 mIU/L Noe Ramon et al. A Practical Approach for the Verifications and Determination of Site- and Trimester-Specific Reference Intervals for Thyroid Function tests in . Thyroid, 2019:29:3:412-420. Gregor E, et al. 2017 Guidelines of the [place] Thyroid Association for the Diagnosis and Management of Thyroid Disease during and the . Thyroid, 2017:27:3:315-389. Performed By: #### 3 024-7, 3016-3 #### [facility] CLIA [id number] [address] [place] [address] [place] Consent for Treatmenton Consent for Treatment [id number]: 127 Normal [facility] US Renalon 07-08-2023 US Renal Exam Date/Time: [...] M.D. Transcribed by: MORENO Technologist: EMILY Normal [facility] XR Abdomen 1 Viewon 07-08-20 XR Abdomen [...] mGy = . DAP = . Normal [facility] Ambulatory Visit Summaryon 0 06-21-2023 Ambulatory Visit Summary EMMY DALE :2000 Visit Date:06/21/2023 Ambulatory Visit Instructions Your Diagnosis Urinary crystals Recurrent UTI Urethral stricture Gross hematuria Tests Performed Urnls Dip Stick Auto w/o Microscopy POC 83271 Your Care Team Attending Physician - SOBEIDA THOMPSON PA-C Primary Care Physician - LYNDON DALAL CNP This Is Your Medications List Contact prescribing physician if questions or concerns busPIRone (busPIRone 10 mg Tab) levothyroxine (Synthroid 25 mcg(0.025 mg) Tab) Procedures Performed Cystourethroscopy with dilation of urethral stricture (07/2021), Extraction of wisdom tooth (2015), Colonoscopy (2013), EGD (esophagogastroduodenosc opy) gastric outlet reduction (2013). Discharge Vitals Heart Rate (Peripheral) 74 Blood Pressure 116/82 Height 160 cm Height 63 in Weight 78 kg Weight 171.6 lb BMI 30.47 What to do next You Need to Schedule the Following Appointments Follow Up with SOBEIDA THOMPSON PA-C, URL When: Comments: will call pt. Where: [address] [place] [address] You Need to Complete the Following US Renal, *Est. 06/21/23 due within 1 months, Routine, Order for future visit, Transport Mode: Ambulatory, Reason: Other (please specify), Reason: Kidney Stones, No, Kidney stones, pp_set_radiology_subspec ialty, [facility] [place] XR Abdomen 1 View, *Est. 06/21/23 due within 1 months, Routine, Order for future visit, Transport Mode: Ambulatory, Reason: Kidney stone, No, Kidney stones, pp_set_radiology_subspec ialty, [facility] [place] Medications What How Much When Instructions Unchanged busPIRone (busPIRone 10 mg Tab) 2 times a day Contact prescribing physician if questions or concerns Unchanged levothyroxine (Synthroid 25 mcg(0.025 mg) Tab) Every day Contact prescribing physician if questions or concerns Test Results Urnls Dip Stick Auto w/o Microscopy POC 09800 (06/21/2023) Bilirubin Urine Dipstick - Negative Blood Urine Dipstick - Negative Glucose Urine Dipstick - Negative Ketones Urine Dipstick - Negative Leukocytes Urine Dipstick - Negative Nitrite Urine Dipstick - Negative Protein Urine Dipstick - Negative Specific Webb Urine Dipstick - 1.010 Urine Appearance Urine [...] ? 8 oz (237 mL) of milk, wlhwivx-wdxetwytfdwb-ryd ry milk, and calcium-fortifiedfruit juice. Calcium-fortified means [...] wheat cereals. (more content not included)... Normal [facility] Patient Educationon 06-21-20 Patient Education Nephrology Dietary [...] ? 8 oz (237 mL) of milk, uzaqccz-usvmwhshznym-hdi ry milk, and calcium-fortifiedfruit juice. Calcium-fortified means [...] Spinach (cooked), rhubarb, beets, sweet potatoes, and Eritrean chard. ? Peanuts. ? Potato chips, malay fries, and baked potatoes with skin on. ? Nuts and nut products. ? Chocolate. ? If you regularly take a diuretic medicine, make sure to eat at least 1 or 2 servings of fruits or vegetables that are high in potassium each day. These include: ? Avocado. ? Banana. ? [place], prune, carrot, or tomato juice. ? Baked [...] fish oil, or vitamin B6. ? Take culr-dml-lsckaet and prescription medicines only as told by your health care provider. These include supplements. What foods should I limit? Limit your in (more content not included)... Normal [facility] Urology Office/Clinic Noteon 06-21-2023 Urology Office/Clinic Note [...] pass. Will send CORDELIA and KUB to [facility] to see if any [...] Urnls Dip Stick Auto w/o Microscopy POC 20455 4. Gross hematuria (R31.0: Gross hematuria) CORDELIA [...] When Contact Information SOBEIDA THOMPSON PA-C, URL [address] [place] [address] Additional Instructions: will call pt. Patient Education [...] History Cystour (more content not included)... Normal [facility] Comment on above: Result Comment: Elec tronically Signed By: SOBEIDA THOMPSON PA-C\.br\Date and Time Signed: 06/21/23 12:44 EDT\.br\Electronically Co-Signed By: Laura Lou\gonzalo\Date and Time Co-Signed: 06/21/23 12:25 EDT PAP [id number] 06-07-2023 Cytology report Cyto stain Doc (Cvx/Vag) Note Invalid Interpretation Code Monty [facility] Comment on above: Result Comment: TEST S RESULT FLAG UNITS REF RANGE LAB Clinician Provided Cytology Information Source.............Endocervix No. of containers..01 ThinPrep Vial DIAGNOSIS: 01 NEGATIVE FOR INTRAEPITHELIAL LESION OR MALIGNANCY. Specimen adequacy: 01 Satisfactory for evaluation. Endocervical and/or squamous metaplastic cells (endocervical component) are present. Performed by: Clif Bolaños, Cook Roast ([facility]) . 01 Note: Note 01 The [...] High <-Panic Low,>-Panic High,A-Abnormal,AA-Critical Abnormal Performed at: [facility] [address] [address] Lisa Ellington MD, Performed at: [facility] [address] KELSEA Walsh [id number] [id number] MD Chandana Gonzalez Performed By: #### 3 [id number] ####[facility] [address] [place] [address] Consent for Treatmenton Consent for Treatment [id number]#[id number]: 127 Normal [facility] Heart and Vascular Office/Cl inic Noteon [...] but unfortunately she was called by the program project manager and told that it was not [...] her Sy (more content not included)... Normal [facility] Comment on above: Result Comment: Elec tronically Signed By: SAMUEL VELAZQUEZ, Benjamin Lopez\.br\Date and Time Signed: 06/01/23 14:25 EDT PAP [id number] 06-01-2023 Collection Technique BRUSH-SPATULA Normal [facility] Comment on above: Performed By: #### 3 [id number] ####[facility] [address] [place] [address] Gynecological Body Site ENDOCERVIX [facility] Comment on above: Performed By: #### 3 [id number] ####[facility] [address] [place] [address] Physician Orderon 06-01-2023 Physician Order [id number]#1.00CD :127 [facility] Physician Order [id number]#1.00CD: 127 [facility] C Urineon 05-27-2023 Bacteria [...] Locations R1: This test was performed at: [facility], [address] [place] [address], [address] , [place], Normal [facility] Comment on above: Performed By: #### 2 [id number] ####[facility] [address] [place] [address] T4 Free SerPl-mCncon 023 Free T4 [Mass/Vol] 1.2 ng/dL Normal 0.9-1.7 [facility] Comment on above: Order Comment: Rozina florez Type: BLOOD SPECIMEN Ordering Facility: [facility] Address: [address] [place] [address] Performed By: #### 3 024-7, 3016-3 #### [facility] CLIA [id number] [address] TSH SerPl-aCncon 05-26-2023 TSH Qn 2.260 m[IU]/L Normal 0.270-4.200 [facility] Comment on above: Order Comment: Rozina florez Type: BLOOD SPECIMEN Ordering Facility: [facility] Address: [address] [place] [address] Result Comment: If t he patient is , TSH reference range varies by gestational period: First Trimester (weeks 9-12): 0.180-2.990 mIU/L Second Trimester: 0.110-3.980 mIU/L Third Trimester: 0.480-4.710 mIU/L Noe Ramon et al. A Practical Approach for the Verifications and Determination of Site- and Trimester-Specific Reference Intervals for Thyroid Function tests in . Thyroid, 2019:29:3:412-420. Gregor E, et al. 2017 Guidelines of the [place] Thyroid Association for the Diagnosis and Management of Thyroid Disease during and the . Thyroid, 2017:27:3:315-389. Performed By: #### 3 024-7, 3016-3 #### [facility] CLIA [id number] [address] [place] [address] [place] Consent for Treatmenton 05-01 Consent for Treatment [id number]#1.00CD: 127 Normal [facility] Physician Orderon 05-25-2023 Physician Order [id number]#1.00CD:12 7 Normal [facility] Urinalysison 05-25-2023 Bacteria LM Ql (Urine sed) 2+ /HPF Abnormal Trace [facility] Comment on above: Performed By: #### 1 [id number] ####[facility] [address] [place] [address] Bilirubin Ql (U) Negative Normal Negative [facility] Comment on above: Performed By: #### 1 [id number] ####[facility] [address] [place] [address] Clarity (U) SL CLOUDY Abnormal Clear [facility] Comment on above: Performed By: #### 1 [id number] ####[facility] [address] [place] [address] Color (U) YELLOW Normal Yellow [facility] Comment on above: Performed By: #### 1 [id number] ####[facility] [address] [place] [address] Crystals LM Ql (Urine sed) Present Normal [facility] Comment on above: Performed By: #### 1 [id number] ####[facility] [address] [place] [address] Epithelial cells.squamous LM.HPF (Urine sed) [#/Area] 0-2 Normal 0-2 [facility] Comment on above: Performed By: #### 1 [id number] ####[facility] [address] [place] [address] Glucose Test strip (U) [Mass/Vol] Negative Normal Negative [facility] Comment on above: Performed By: #### 1 [id number] ####[facility] [address] [place] [address] Hemoglobin Ql (U) 2+ Abnormal Negative [facility] Comment on above: Performed By: #### 1 [id number] ####[address] [address] Ketones (U) [Mass/Vol] Negative Normal Negative [facility] Comment on above: Performed By: #### 1 [id number] ####[address] [address] [place].plasma/Lit hium.RBC (Bld) [Mass ratio] 0-3 Normal 0-3 [facility] Comment on above: Performed By: #### 1 [id number] ####[address] [address] Mucus Ql (Urine sed) TRACE Normal [facility] Comment on above: Performed By: #### 1 [id number] ####[address] [address] Nitrite Ql (U) Positive Abnormal Negative [facility] Comment on above: Performed By: #### 1 [id number] ####[address] [address] pH (U) 6.0 [pH] Invalid Interpretation Code 5.0-9.0 [facility] Comment on above: Performed By: #### 1 [id number] ####[address] [address] Protein (U) [Mass/Vol] Negative Normal Negative [facility] Comment on above: Performed By: #### 1 [id number] ####[address] [address] Specific gravity (U) [Rel density] 1.010 Invalid Interpretation Code 1.005-1.030 [facility] Comment on above: Performed By: #### 1 [id number] ####[address] [address] Type of Urine collection method Clean Catch Normal [facility] Comment on above: Performed By: #### 1 [id number] ####[address] [place] [address] Urobilinogen Qn (U) 0.2 {Catarino'U}/dL Normal 0.0-1.0 [facility] Comment on above: Performed By: #### 1 [id number] ####[facility] [address] [place] [address] WBC Auto Ql (U) 1+ Abnormal Negative [facility] Comment on above: Performed By: #### 1 [id number] ####[facility] [address] [place] [address] WBC LM.HPF (Urine sed) [#/Area] 26-30 Abnormal 0-5 [facility] Comment on above: Performed By: #### 1 [id number] ####[facility] [address] [place] [address] Consent for Treatmenton 04-30 Consent for Treatment [id number]#1.00CD: 127 Normal [facility] Consent for Treatmenton Consent for Treatment [id number]#1.00CD: 127 Normal [facility] Heart and Vascular Office/Cl inic Noteon 05-05-2023 [...] 1 month. (more content not included)... Normal [facility] Comment on above: Result Comment: Elec tronically Signed By: Samuel VELAZQUEZ, Benjamin Lopez\.cee\Date and Time Signed: 05/05/23 16:11 EDT Physician Orderon 05-05-2023 Physician Order [id number]#1.00CD :127 [facility] Stress EKG Tracingson 2022 Stress EKG Tracings [id number]#1.00CD: 127 [facility] Consent for Treatmenton 03-31 Consent for Treatment [id number]#1.00CD: 127 Normal [facility] T3Free SerPl-mCncon 04-06-20 23 Free T3 [Mass/Vol] 3.3 pg/mL Normal 2.3-4.1 [facility] Comment on above: Order Comment: Speci men Type: BLOOD SPECIMEN Ordering Facility: [facility] Address: [address] [place] [address] Performed By: #### 3 051-0, 3024-7, 3016-3 #### [facility] CLIA [id number] [address] [place] [address] [place] T4 Free SerPl-mCncon 023 Free T4 [Mass/Vol] 1.4 ng/dL Normal 0.9-1.7 [facility] Comment on above: Order Comment: Speci men Type: BLOOD SPECIMEN Ordering Facility: [facility] Address: [address] [place] [address] Performed By: #### 3 051-0, 3024-7, 3016-3 #### [facility] CLIA [id number] [address] [place] [address] [place] THYROGLOBULIN ABon Thyroglobulin Ab Qn 1.8 [IU]/mL Normal <4.0 [facility] Comment on above: Order Comment: Speci men Type: BLOOD SPECIMEN Ordering Facility: [facility] Address: [address] [place] [address] Result Comment: The Thyroglobulin Antibody test was performed using the [employer] DXI paramagnetic particle chemiluminescent immunoassay method. Results obtained with different assay methods or kits cannot be used interchangeably. Performed By: #### T JASON #### [facility] CLIA [id number] [address] [place] [address] [place] THYROID PEROXIDASE ANTIBODY BLOODon 04-06-2023 [place]n 4572.0 [IU]/mL High <5.6 [facility] Comment on above: Order Comment: Rozina florez Type: BLOOD SPECIMEN Ordering Facility: [facility] Address: [address] [place] [address] Result Comment: Thyr oid Peroxidase Antibody test is used as an aid in diagnosis of autoimmune thyroid disease. Clinical correlation is required. Performed By: #### M ICRO #### [facility] CLIA [id number] [address] STATES OF [facility] TSH SerPl-aCncon 04-06-2023 TSH Qn 6.050 m[IU]/L High 0.270-4.200 [facility] Comment on above: Order Comment: Rozina florez Type: BLOOD SPECIMENOrdering Facility: [facility] Address: [address] [place] [address] Result Comment: If t he patient is , TSH reference range varies by gestational period: First Trimester (weeks 9-12): 0.180-2.990 mIU/L Second Trimester: 0.110-3.980 mIU/L Third Trimester: 0.480-4.710 mIU/L Noe Ramon et al. A Practical Approach for the Verifications and Determination of Site- and Trimester-Specific Reference Intervals for Thyroid Function tests in . Thyroid, 2019:29:3:412-420. Gregor Banegas, et al. 2017 Guidelines of the [place] Thyroid Association for the Diagnosis and Management of Thyroid Disease during and the . Thyroid, 2017:27:3:315-389. Performed By: #### 3 051-0, 3024-7, 3016-3 ####[facility] [id number] [address] OF [facility] CNOVon 03-08-2023 CNOV Office Visit (ENDOLN ) -------- EMMY DALE ([id number]) 1 F Date Time Provider Department 03/08/23 4:20 PM MARTINA RODRIGUEZ During your visit today, we recorded the following information about you: Blood pressure Weight 116/76 83.9 kg Martina Rodriguez MD, PhD 03/08/2023 6:07 PM Signed Ms. Dale is here today at the request of Lyndon Dlaal CNP for my opinion regarding thyroid problem. [...] Arthritis Father in blood . was at [facility] when baby thought to be related [...] involuntary motions. (more content not included)... Normal [facility] Vital Signs Date Time Vital Sign Value Performing Clinician Facility 09-03-2024 08:55-0500 Body weight 103.33 kg Dami Ajith DO Work Phone: [facility] 09-03-2024 08:55-0500 Diastolic blood pressure 72 mm[Hg] Dami Ajith DO Work Phone: [facility] 09-03-2024 08:55-0500 Systolic blood pressure 118 mm[Hg] Dami Ajith DO Work Phone: [facility] 08-27-2024 08:50-0400 Body weight 104.33 kg Dami Ajith DO Work Phone: [facility] 08-27-2024 08:50-0400 Diastolic blood pressure 68 mm[Hg] Dami Ajith DO Work Phone: [facility] 08-27-2024 08:50-0400 Systolic blood pressure 110 mm[Hg] Dami Ajith DO Work Phone: [facility] 08-14-2024 09:36-0400 Body weight 101.61 kg Dami Ajith DO Work Phone: [facility] 08-14-2024 09:36-0400 Diastolic blood pressure 70 mm[Hg] Dami Ajith DO Work Phone: [facility] 08-14-2024 09:36-0400 Systolic blood pressure 120 mm[Hg] Dami Ajith DO Work Phone: [facility] 07-31-2024 08:55-0400 Body weight 99.34 kg Dami Ajith DO Work Phone: [facility] 07-31-2024 08:55-0400 Diastolic blood pressure 68 mm[Hg] Dami Ajith DO Work Phone: [facility] 07-31-2024 08:55-0400 Systolic blood pressure 112 mm[Hg] Dami Serrano Phone: [facility] 09-15-2023 13:30-0500 Body height 162.56 cm Lyndon Easterwood Other [facility] Other 09-15-2023 13:30-0500 Body mass index (BMI) [Ratio] 30.21 kg/m2 Lyndon Easterwood Other [facility] Other 09-15-2023 13:30-0500 Body weight 79.83 kg Lyndon Easterwood Other [facility] Other 09-15-2023 13:30-0500 Diastolic blood pressure 68 mm[Hg] Lyndon Easterwood Other [facility] Other 09-15-2023 13:30-0500 Respiratory rate 18 /min Lyndon Easterwood Other [facility] Other 09-15-2023 13:30-0500 SaO2% (BldA) [Mass fraction] 99 % Lyndon Easterwood Other [facility] Other 09-15-2023 13:30-0500 Systolic blood pressure 118 mm[Hg] Lyndon Easterwood Other [facility] Other 07-12-2023 09:15-0400 Body height 162.56 cm Lyndon Easterwood Other [facility] Other 07-12-2023 09:15-0400 Body mass index (BMI) [Ratio] 29.86 kg/m2 Lyndon Easterwood Other [facility] Other 07-12-2023 09:15-0400 Body temperature 98.6 [degF] Lyndon Easterwood Other [facility] Other 07-12-2023 09:15-0400 Body weight 78.93 kg Lyndon Easterwood Other [facility] Other 07-12-2023 09:15-0400 Diastolic blood pressure 70 mm[Hg] Lyndon Easterwood Other [facility] Other 07-12-2023 09:15-0400 Respiratory rate 20 /min Lyndon Easterwood Other [facility] Other 07-12-2023 09:15-0400 SaO2% (BldA) [Mass fraction] 98 % Lyndon Easterwood Other [facility] Other 07-12-2023 09:15-0400 Systolic blood pressure 112 mm[Hg] Lyndon Easterwood Other [facility] Other 05-25-2023 17:30-0400 Body height 162.56 cm Lyndon Easterwood Other [facility] Other 05-25-2023 17:30-0400 Body mass index (BMI) [Ratio] 30.04 kg/m2 Lyndon Easterwood Other [facility] Other 05-25-2023 17:30-0400 Body temperature 98.2 [degF] Lyndon Easterwood Other [facility] Other 05-25-2023 17:30-0400 Body weight 79.38 kg Lyndon Easterwood Other [facility] Other 05-25-2023 17:30-0400 Diastolic blood pressure 72 mm[Hg] Lyndon Easterwood Other [facility] Other 05-25-2023 17:30-0400 Respiratory rate 20 /min Lyndon Joseerwood Other [facility] Other 05-25-2023 17:30-0400 SaO2% (BldA) [Mass fraction] 99 % Lyndon Dalal Other [facility] Other 05-25-2023 17:30-0400 Systolic blood pressure 110 mm[Hg] Lyndon Joseerrick Other [facility] Other 03-08-2023 16:13-0400 Body weight 83.92 kg Martina Rodriguez MD, PhD Work Phone: [facility] 03-08-2023 16:13-0400 Diastolic blood pressure 76 mm[Hg] Martina Rodriguez MD, PhD Work Phone: [facility] 03-08-2023 16:13-0400 Systolic blood pressure 116 mm[Hg] Martina Rodriguez MD, PhD Work Phone: [facility] 08-05-2022 16:00-0400 Body height 162.56 cm Lyndon Dalal Other [facility] Other 08-05-2022 16:00-0400 Body mass index (BMI) [Ratio] 32.78 kg/m2 Lyndon Garciaerwood Other [facility] Other 08-05-2022 16:00-0400 Body temperature 98 [degF] Lyndon Joseerwood Other [facility] Other 08-05-2022 16:00-0400 Body weight 86.64 kg Lyndon Dalal Other [facility] Other 08-05-2022 16:00-0400 Diastolic blood pressure 76 mm[Hg] Lyndon Dalal Other [facility] Other 08-05-2022 16:00-0400 Respiratory rate 20 /min Lyndon Dalal Other [facility] Other 08-05-2022 16:00-0400 SaO2% (BldA) [Mass fraction] 99 % Lyndon Dalal Other [facility] Other 08-05-2022 16:00-0400 Systolic blood pressure 122 mm[Hg] Lyndon Dalal Other [facility] Other Encounters Encounter Date Encounter Type Care Provider Facility Start: 09-10-2024 End: 09-10-2024 ambulatory DAMI AJITH Not Available Start: 09-03-2024 End: 09-03-2024 Bamboo flowsheet Dami [...] 07-23-2024 End: 07-23-2024 ambulatory Dami R AJITH Facility:[facility] Start: 07-19-2024 End: 07-19-2024 ambulatory LELE ALEJO Not Available Start: 07-05-2024 End: 07-05-2024 ambulatory DAMI AJITH Not Available Start: 06-25-2024 End: 06-25-2024 ambulatory DAMI AJITH Not Available Start: 06-25-2024 End: 06-25-2024 ambulatory LELE ALEJO Facility:[facility] Start: 06-12-2024 End: 06-12-2024 ambulatory DAMI R AJITH [facility] Start: 06-04-2024 End: 06-04-2024 ambulatory LELE ALEJO Not Available Start: 05-14-2024 End: 05-14-2024 ambulatory DAMI R AJITH [facility] Start: 05-08-2024 End: 05-08-2024 ambulatory DAMI AJITH Not Available Start: 04-09-2024 End: 04-09-2024 ambulatory DAMI AJITH Not Available Start: 04-04-2024 ambulatory Dami R AJITH Facility: [facility] Start: 03-12-2024 End: 03-12-2024 ambulatory DAMI AJITH Not Available Start: 02-24-2024 End: 02-24-2024 ambulatory DAMI JAITH Not Available Start: 12-04-2023 End: 12-04-2023 ambulatory Lyndon Fall[place] Other [facility] Other Start: 12-04-2023 Encounter by [employer] Lyndon Dalal [facility] Start: 11-05-2023 End: 11-05-2023 ambulatory Lyndon Eufemiawood Other [facility] Other Start: 11-05-2023 Encounter by [employer] Lyndon Dalal [facility] Start: 10-25-2023 End: 10-25-2023 ambulatory Lyndon J Eufemiawood Facility:[facility] Start: 10-10-2023 End: 10-10-2023 ambulatory Lyndon Joseerwood Other [facility] Other Start: 10-10-2023 Telephone encounter Lyndon Fall[place] [facility] Start: 09-26-2023 End: 09-26-2023 ambulatory Lyndon Joseerwood Other [facility] Other Start: 09-26-2023 Telephone encounter Lyndon [place] [facility] Start: 09-18-2023 End: 09-18-2023 ambulatory Lyndon Joseerwood Other [facility] Other Start: 09-18-2023 Telephone encounter Lyndon Easterwood [facility] Start: 09-15-2023 End: 09-15-2023 ambulatory LYNDON JOSEERWOOD [facility] [employer] Other Start: 09-15-2023 Office outpatient visit 25 minutes Lyndon Easterwood [facility] Start: 08-18-2023 End: 08-18-2023 ambulatory LYNDON EUFEMIAWOOD Facility:[facility] Start: 08-05-2023 Get Medical Advice Martina Rodriguez MD, PhD Work Phone: Endocrinology Comment on above: lab orders Start: 07-22-2023 End: 07-22-2023 ambulatory Lyndon Joseerwood Other [facility] Other Start: 07-22-2023 Telephone encounter Lyndon [place] [facility] [employer] [facility] Start: 07-12-2023 End: 07-12-2023 ambulatory Lyndon Eufemiawood Other [facility] Other Start: 07-12-2023 Office outpatient visit 25 minutes Lyndon Joseerwood [facility] Start: 07-12-2023 Telephone encounter Lyndon Joseerwood [facility] Start: 07-08-2023 End: 07-08-2023 ambulatory SOBEIDA THOMPSON Facility:[facility] Start: 06-27-2023 End: 06-27-2023 ambulatory Lyndon Joseerwood Other [facility] Other Start: 06-27-2023 Telephone encounter Lyndon Easterwood [facility] Start: 06-21-2023 End: 06-21-2023 ambulatory SOBEIDA THOMPSON Facility:[facility] Start: 06-01-2023 End: 06-01-2023 ambulatory Benjamin BAKER Facility:[facility] Start: 06-01-2023 End: 06-01-2023 ambulatory Bill Kat Facility:[facility] Start: 05-26-2023 End: 05-26-2023 [facility] Facility:[facility] Start: 05-25-2023 End: 05-25-2023 ambulatory [facility] [employer] Other Start: 05-25-2023 Office outpatient visit 15 minutes Lyndon [facility] Start: 05-17-2023 End: 05-17-2023 ambulatory Benjamin BAKER Facility:[facility] Start: 05-05-2023 End: 05-05-2023 ambulatory Benjamin BAKER Facility:[facility] Start: 04-15-2023 End: 04-15-2023 ambulatory Benjamin BAKER Facility:[facility] Start: 04-06-2023 End: 04-06-2023 ambulatory MARTINA RODRIGUEZ Facility:[facility] Start: 03-08-2023 End: 03-08-2023 ambulatory MARTINA RODRIGUEZ Facility:[facility] Start: 03-08-2023 End: 03-08-2023 Patient encounter procedure Martina Rodriguez MD, PhD Work Phone: Endocrinology Comment on above: Vikki's thyroidi tis (Primary Dx) Start: 02-28-2023 End: 02-28-2023 [facility] [employer] Other Start: 02-28-2023 Telephone encounter Lyndon Dalal [facility] Start: 02-21-2023 End: 02-21-2023 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 Lyndon Dalal Work Phone: [facility] Work Phone: Start: 02-21-2023 End: 02-21-2023 Discharged Recurring 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 Lyndon Dalal Work Phone: [facility] [place] Work Phone: Start: 08-09-2022 End: 08-09-2022 ambulatory Lyndon Dalal Other [facility] Other Start: 08-09-2022 Telephone encounter Lyndon Dalal [facility] Start: 08-05-2022 End: 08-06-2022 Emergency department patient visit Lyndon Dalal Facility:[facility] Start: 08-05-2022 End: 08-05-2022 ambulatory Lyndon Dalal Other [facility] Other Start: 08-05-2022 Office outpatient visit 40 minutes Lyndon Dalal [facility] Procedures Date Procedure Procedure Detail Performing Clinician [...] Routine [facility] [address] [place] [address] Dami Canseco DO [address] [place] [address] [facility] Start: 09-10-2024 End: 09-10-2024 Patient encounter procedure 09/10/2024 8:40 AM EST Routine [facility] [address] [place] [id number] Dami Canseco, DO [address] [place], [place] [id number] [facility] Start: 09-03-2024 End: 09-03-2025 Strep B DNA probe, amplification Strep B DNA probe, amplification Lab Routine 36 weeks gestation of Third trimester Expected: 09/03/2024 (Approximate), Expires: 09/03/2025 [facility] Work Phone: Comment on above: Expected: 09/03/2024 (Approximate), Expires: 09/03/2025 Start: 09-03-2024 End: 09-03-2024 Patient encounter procedure 09/03/2024 8:40 AM EST Routine [facility] [address] [place] [id number] Dami Canseco, DO [address] [place] [address] [facility] Start: 08-27-2024 End: 08-27-2024 Patient encounter procedure 08/27/2024 8:40 AM EDT Routine [facility] [address] [place] [id number] Dami Canseco, DO [address] [place] [address] [facility] Start: 08-14-2024 End: 08-14-2024 Patient encounter procedure [facility] Comment on above: Arrived Start: 08-06-2024 End: 08-06-2024 Professional / ancillary services management 08/06/2024 8:00 AM EDT Ancillary Procedure [facility] [address] [place] [id number] [facility] Start: 07-31-2024 End: 07-31-2024 Patient encounter procedure 07/31/2024 8:50 AM EDT Routine [facility] [address] [address] Dami Canseco DO [address] [facility] [place] [address] Arrived [facility] Comment on above: Arrived Start: 07-01-2024 Influenza vaccination Influenza Vacc ine (#1) [facility] Start: 08-08-2023 End: 10-08-2023 Thyrotropin [Units/volume] in Serum or Plasma TSH BLD Lab Routine Vikki's thyroiditis Expected: 08/08/2023, Expires: 10/08/2023 [facility] Work Phone: Comment on above: Expected: 08/08/2023 , Expires: 10/08/2023 Start: 08-08-2023 End: 10-08-2023 Thyroxine (T4) free [Mass/volume] in Serum or Plasma T4 FREE/FREE THYROX Lab Routine Vikki's thyroiditis Expected: 08/08/2023, Expires: 10/08/2023 [facility] Work Phone: Comment on above: Expected: 08/08/2023 , Expires: 10/08/2023 Start: 07-07-2023 Urine microalbumin profile [facility] Start: 07-01-2023 Covid-19 Vaccine ( season) Covid-19 Vaccine () [facility] Start: 07-01-2023 Influenza vaccination Influenza Vacc ine (#1) [facility] Start: 03-31-2023 End: 05-31-2023 Thyroglobulin Ab [Units/volume] in Serum or Plasma THYROGLOBULIN AB Lab Routine Vikki's thyroiditis Expected: 03/31/2023, Expires: 05/31/2023 [facility] Work Phone: Comment on above: Expected: 03/31/2023 , Expires: 05/31/2023 Start: 03-31-2023 End: 05-31-2023 THYROID PEROXIDASE ANTIBODY BLOOD THYROID PEROXIDASE ANTIBODY BLOOD Lab Routine Vikki's thyroiditis Expected: 03/31/2023, Expires: 05/31/2023 [facility] Work Phone: Comment on above: Expected: 03/31/2023 , Expires: 05/31/2023 Start: 03-31-2023 End: 05-31-2023 Thyrotropin [Units/volume] in Serum or Plasma TSH BLD Lab Routine Vikki's thyroiditis Expected: 03/31/2023, Expires: 05/31/2023 [facility] Work Phone: Comment on above: Expected: 03/31/2023 , Expires: 05/31/2023 Start: 03-31-2023 End: 05-31-2023 Thyroxine (T4) free [Mass/volume] in Serum or Plasma T4 FREE/FREE THYROX Lab Routine Vikki's thyroiditis Expected: 03/31/2023, Expires: 05/31/2023 [facility] Work Phone: Comment on above: Expected: 03/31/2023 , Expires: 05/31/2023 Start: 03-31-2023 End: 05-31-2023 Triiodothyronine (T3) Free [Mass/volume] in Serum or Plasma T3 FREE BLD Lab Routine Vikki's thyroiditis Expected: 03/31/2023, Expires: 05/31/2023 [facility] Work Phone: Comment on above: Expected: 03/31/2023 , Expires: 05/31/2023 Start: 10-31-2022 DEPRESSION ASSESSMENT DEPRESSION ASS ESSMENT [facility] Start: 2021 PAP TESTING PAP TESTING [facility] Start: 02-02-2021 COVID-19 VACCINE (3 - Booster for Pfizer series) COVID-19 VACCINE (3 - Booster for Pfizer series) [facility] Start: 2018 CHLAMYDIA SCREENING (18-24) CHLAMYDIA SCREENING (18-24) [facility] Start: 2018 GC (GONORRHEA) SCREE MICHELLE (18-24) GC (GONORRHEA) SCREENING (18-24) [facility] Start: 2018 HEPATITIS C SCREENING HEPATITIS C SC REENING [facility] Start: 2018 HIV SCREENING HIV SCREENING [facility] Start: 2016 Meningococcal B Vacc ine: Consider Based On Risk (2 of 2 - Risk Bexsero 2-dose series) Meningococcal B Vaccine: Consider Based On Risk (2 of 2 - Risk Bexsero 2-dose series) [facility] Start: 2016 MENINGOCOCCAL B: Con tack cleaner based on risk (2 of 2 - Risk Bexsero 2-dose series) MENINGOCOCCAL B: Consider based on risk (2 of 2 - Risk Bexsero 2-dose series) [facility] Start: 2014 PEDS TO ADULT TRANSI TION ANNUAL ASSESSMENT PEDS TO ADULT TRANSITION ANNUAL ASSESSMENT [facility] Start: 2012 PEDS TO ADULT TRANSI TION INITIAL DISCUSSION PEDS TO ADULT TRANSITION INITIAL DISCUSSION [facility] Immunizations Immunization Date Immunization Notes Care Provider Milady avera [facility] 07-19-2022 influenza, injectabl e, quadrivalent, contains preservative Lyndon Easterwood Other [facility] Other 07-19-2022 influenza virus vaccine, unspecified formulation Martina Rodriguez MD, PhD Work Phone: [facility] 12-08-2020 Do not use COVID-19 Pfizer 2 dose Lyndon Easterwood Other [facility] Other 11-17-2020 Do not use COVID-19 Pfizer 2 dose Lyndon Easterwood Other [facility] Other 07-31-2020 influenza, injectabl e, quadrivalent, contains preservative Lyndon Easterwood Other [facility] Other 10-18-2016 influenza, injectabl e, quadrivalent, contains preservative Martina Rodriguez MD, PhD Work Phone: [facility] 08-04-2015 influenza, injectabl e, quadrivalent, contains preservative Martina Rodriguez MD, PhD Work Phone: [facility] 04-23-2014 human papilloma viru s vaccine, quadrivalent Martina Rodriguez MD, PhD Work Phone: [facility] 09-29-2013 human papilloma viru s vaccine, quadrivalent Martina Rodriguez MD, PhD Work Phone: [facility] 07-07-2013 human papilloma viru s vaccine, quadrivalent Martina Rodriguez MD, PhD Work Phone: [facility] 07-07-2013 meningococcal polysaccharide (groups A, C, Y and W-135) diphtheria toxoid conjugate vaccine (MCV4P) Martina Rodriguez MD, PhD Work Phone: [facility] Work Phone: 07-07-2013 tetanus toxoid, redu ollei diphtheria toxoid, and acellular pertussis vaccine, adsorbed Martina Rodriguez MD, PhD Work Phone: [facility] 08-04-2009 influenza virus vaccine, unspecified formulation Martina Rodriguez MD, PhD Work Phone: [facility] 07-05-2008 hepatitis A vaccine, unspecified formulation Martina Rodriguez MD, PhD Work Phone: [facility] 09-09-2007 influenza virus vaccine, unspecified formulation Martina Rodriguez MD, PhD Work Phone: [facility] Work Phone: 06-19-2007 hepatitis A vaccine, unspecified formulation Martina Rodriguez MD, PhD Work Phone: [facility] 06-19-2007 varicella virus vaccine Parth Rodriguez MD, PhD Work Phone: [facility] 09-14-2006 influenza virus vaccine, unspecified formulation Martina Rodriguez MD, PhD Work Phone: [facility] 05-13-2006 diphtheria, tetanus toxoids and acellular pertussis vaccine Martina Rodriguez MD, PhD Work Phone: [facility] Work Phone: 05-13-2006 measles, mumps and rubella virus vaccine Martina Rodriguez MD, PhD Work Phone: [facility] Work Phone: 05-13-2006 poliovirus vaccine, inactivated Martina Rodriguez MD, PhD Work Phone: [facility] Work Phone: 05-13-2006 varicella virus vaccine Parth Rodriguez MD, PhD Work Phone: [facility] Work Phone: 07-26-2005 influenza virus vaccine, unspecified formulation Martina Rodriguez MD, PhD Work Phone: [facility] Work Phone: 07-30-2004 influenza virus vaccine, unspecified formulation Martina Rodriguez MD, PhD Work Phone: [facility] Work Phone: 06-30-2002 diphtheria, tetanus toxoids and acellular pertussis vaccine Martina Rodriguez MD, PhD Work Phone: [facility] Work Phone: 06-30-2002 poliovirus vaccine, inactivated Martina Rodriguez MD, PhD Work Phone: [facility] Work Phone: 04-04-2002 haemophilus influenz ae type b vaccine, HbOC conjugate Martina Rodriguez MD, PhD Work Phone: [facility] Work Phone: 04-04-2002 measles, mumps and rubella virus vaccine Martina Rodriguez MD, PhD Work Phone: [facility] Work Phone: 12-16-2001 hepatitis B vaccine, pediatric or pediatric/adolescent dosage Martina Rodriguez MD, PhD Work Phone: [facility] Work Phone: 12-16-2001 pneumococcal conjuga te vaccine, 7 valent Martina Rodriguez MD, PhD Work Phone: [facility] Work Phone: 09-30-2001 pneumococcal conjuga te vaccine, 7 valent Martina Rodriguez MD, PhD Work Phone: [facility] Work Phone: 06-24-2001 diphtheria, tetanus toxoids and acellular pertussis vaccine Martina Rodriguez MD, PhD Work Phone: [facility] Work Phone: 06-24-2001 haemophilus influenz ae type b vaccine, HbOC conjugate Martina Rodriguez MD, PhD Work Phone: [facility] Work Phone: 06-24-2001 pneumococcal conjuga te vaccine, 7 valent Martina Rodriguez MD, PhD Work Phone: [facility] Work Phone: 04-12-2001 diphtheria, tetanus toxoids and acellular pertussis vaccine Martina Rodriguez MD, PhD Work Phone: [facility] Work Phone: 04-12-2001 haemophilus influenz ae type b vaccine, HbOC conjugate Martina Rodriguez MD, PhD Work Phone: [facility] Work Phone: 04-12-2001 poliovirus vaccine, inactivated Martina Rodriguez MD, PhD Work Phone: [facility] Work Phone: 02-03-2001 diphtheria, tetanus toxoids and acellular pertussis vaccine Martina Rodriguez MD, PhD Work Phone: [facility] Work Phone: 02-03-2001 haemophilus influenz ae type b vaccine, HbOC conjugate Martina Rodriguez MD, PhD Work Phone: [facility] Work Phone: 02-03-2001 poliovirus vaccine, inactivated Martina Rodriguez MD, PhD Work Phone: [facility] Work Phone: 2000 hepatitis B vaccine, pediatric or pediatric/adolescent dosage Martina Rodriguez MD, PhD Work Phone: [facility] Work Phone: 2000 hepatitis B vaccine, pediatric or pediatric/adolescent dosage Martina Rodriguez MD, PhD Work Phone: [facility] Work Phone: Payers Date Payer Category Payer Private Health Insurance [id number] 2024 Unknown [id number] 2023 Unknown [id number] 2022 Private Health Insurance [id number] 2022 Self-pay 2020 Private Health Insurance [id number] 2020 Private Health Insurance [id number]. [id number] 2000 Unknown [id number] 2.16.840.1.807862.3.579.2.727 2000 Unknown [id number] 2.16.840.1.084883.3.579.2.727 2000 Unknown [id number] 2.16.840.1.183872.3.579.2.727 2000 Unknown [id number] 2.16.840.1.298027.3.579.2.727 2000 Unknown [id number] 2.16.840.1.135463.3.579.2.727 2000 Unknown [id number] 2.16.840.1.553355.3.579.2.727 2000 Unknown [id number] 2.16.840.1.066715.3.579.2.727 2000 Unknown [id number] 2.16.840.1.862714.3.579.2.727 2000 Unknown [id number] 2.16.840.1.168797.3.579.2.727 2000 Unknown [id number] 2.16.840.1.362915.3.579.2.727 2000 Unknown [id number] 2.16.840.1.823611.3.579.2.727 2000 Unknown [id number] 2.16.840.1.638412.3.579.2.1286 2000 Unknown [id number] 2.16.840.1.198563.3.579.2.1286 2000 Unknown [id number] 2.16.840.1.259861.3.579.2.1286 2000 Unknown [id number] 2.16.840.1.312376.3.579.2.727 2000 Unknown [id number] 2.16.840.1.011860.3.579.2.7 2000 Unknown [id number] 2.16840.1.599192.3.579.2.1258 2000 Unknown [id number] 2.16.840.1.220618.3.579.2.9 2000 Unknown [id number] 2.16.840.1.374979.3.579.2.1258 2000 Unknown [id number] 2.16.840.1.473150.3.579.2.9 2000 Unknown [id number] 2.16840.1.731744.3.579.2.1258 2000 Unknown [id number] 2.16.840.1.770830.3.579.2.9 2000 Unknown [id number] 2.16.840.1.983826.3.579.2.1258 2000 Unknown [id number] 2.16.840.1.680661.3.579.2.9 2000 Unknown [id number] 2.16.840.1.853891.3.579.2.1258 2000 Unknown [id number] 2.16.840.1.593120.3.579.2.1259 2000 Unknown [id number] 2.16.840.1.603744.3.579.2.1259 2000 Unknown [id number] 2.16.840.1.039336.3.579.2.1259 2000 Unknown [id number] 2.16.840.1.327849.3.579.2.1259 Private Health Insurance [facility] [id number] Unknown [id number] 2.16.840.1.803825.3.579.2.531 Unknown [employer] [employer] Employees [id number] Unknown [id number] 2.16.840.1.825533.3.579.2.531 Social History Date Type Detail Facility Start: 03-08-2023 End: 07-05-2024 Sex Assigned At [facility] Other Start: 09-27-2014 End: 07-05-2024 Tobacco smoking status NHIS Never smoked tobacco [facility] History of tobacco use Passive smoker [facility] Start: 03-08-2023 Alcohol intake Not Asked [facility] Start: 2000 Sex Assigned At Not on file [facility] Start: 2000 Sex Assigned At Female F [facility] Start: 03-08-2023 End: 07-05-2024 History of Social function [facility] Start: 07-05-2024 Tobacco use and exposure Smokeless tobacco non-user [facility] Start: 07-19-2024 End: 08-27-2024 Alcoholic beverage intake Ex-drinker (finding) [facility] Start: 01-06-2024 [facility] Clinical Notes 09-09-2009 to 09-03-2024 Rhoda Ortiz [...] 4 mg, Oral, Every 6 hours PRN Vwrdzfrq-Ztp-Rb-FA ( 1 + IRON PO) ALLERGIES Allergies [...] nursing note reviewed. Exam conducted with a log roper present. Vitals: There is no height or [...] Dami Canseco DO documented in this encounter [facility] 08-27-2024 History of Presen t illness [...] 4 mg, Oral, Every 6 hours PRN Sxesozvr-Gda-Wo-FA ( 1 + IRON PO) ALLERGIES Allergies [...] Vikki's disease (CMS/HCC) Hypertension (CMS/HCC) Gestational Hypothyroidism ([facility]) 12/2020 Urinary tract infection As a teen [...] nursing note reviewed. Exam conducted with a log roper present. Vitals: There is no height or [...] Dami Canseco DO documented in this encounter [facility] 08-14-2024 History of Presen t illness [...] 4 mg, Oral, Every 6 hours PRN Ltkyduty-Qgs-Ge-FA ( 1 + IRON PO) ALLERGIES Allergies [...] nursing note reviewed. Exam conducted with a log roper present. Vitals: There is no height or [...] Dami Canseco DO documented in this encounter [facility] 07-31-2024 History of Presen t illness [...] 4 mg, Oral, Every 6 hours PRN Wfnhwrve-Aft-Cx-FA ( 1 + IRON PO) ALLERGIES Allergies [...] Dami Canseco DO documented in this encounter [facility] 09-15-2023 Evaluation note Encounter Date Diagnosis [...] physical therapy to [facility]. Discussed continuation of qngj-nsc-cayokjl medications as needed. Take muscle relaxer as [...] physical therapy to [facility]. Discussed continuation of ucdw-wvw-falxsdo medications as needed. Take muscle relaxer as [...] that were not corrected during review process. [facility] Other 09-12-2023 Evaluation note* Encounter Date Diagnosis [...] that were not corrected during review process. [facility] Other 07-26-2023 Evaluation note* Encounter Date Diagnosis [...] that were not corrected during review process. [facility] Other 06-18-2023 NoteEchocardiology Procedure Exam Date/Time Accession # Ordering ECG Stress Exercise 04/15/2023 08:43 EDT [id number] Samuel VELAZQUEZ, Benjamin Lopez CPT code 61994 Reason for Exam (ECG Stress Exercise) I95.1;Dizziness [...] Benjamin Baker MD Transcribed by: angela Technologist: [facility]06-16-2023 Note Echocardiology Procedure Exam Date/Time Accession # Ordering Echo Transthoracic 04/15/2023 09:42 EDT [id number] Benjamin Baker MD Complete CPT code 27127 14950 Reason for Exam (Echo Transthoracic Complete) I95.9;Hypotension Report [facility] [address] [place] [address] Adult Echocardiogram Report Name: EMMY DALE Study Date: 04/15/2023 09:02 AM BP: 105/71 mmHg Patient Location: [facility] HR: 75 : 2000 Gender: Female Height: 63 in Age: 22 yrs Ethnicity: [facility] Weight: 178 lb Reason For Study: Hypotension BSA: 1.8 m2 History: No cardiac history per patient Ordering Physician: Samuel^Benjamin^John Referring Physician: Benjamin Baker Performed By: Jonelle Alvarez [facility] Interpretation Summary Ejection Fraction = [...] Technologist: [facility]05-09-2023 Note HNO ID: [id number] Author: Martina Rodriguez MD, PhD Service: ? [...] Arthritis Father in blood . was at [facility] when baby thought to be related [...] Plan: Will monitor thyroid (more content not included)...[facility] 03-08-2023 History of Present illness Narrative* Martina [...] Arthritis Father in blood . was at [facility] when baby thought to be related [...] Martina Rodriguez MD, PhD [facility]* Encounter Date Diagnosis Assessment [...] I would recommend referral to a different chuck tender. Patient does have the name of an chuck tender that she would like referred to. We will put that referral in today. Dr. Roger Kim - [facility] Endocrinology, [facility] February, Dizziness (ICD-10 - R42) Discussed [...] that were not corrected during review process. [facility] Other 10-06-2022 Evaluation note* Encounter Date Diagnosis [...] to ER, I highly recommend she call [facility] the second she leaves our office to follow-up.She needs to let them know about her concerns.I explained to her that even though she may assume that her [facility]INE T[facility] will not listen her , I still want her to reach out to that office and explained to them her current concerns. She wants to know what the immediate treatment would be and work-up for spinal headache and possible leak however I cannot provide her with this information as I am not [facility] RO[employer]ACHINE T[employer]ER. Jul, Hip pain (ICD-10 - M25.559) While [...] I did discuss with her concerns over gcis-kmq-cdfvigz medications during breast-feeding. Discussed recommendations currently and please bring this up to [facility] as well for further recommendations. Does not [...] I would like her to follow-up with [facility] or go to ER regarding this dizziness and we can follow-up in office after. If nothing comes from an [facility] [facility] [facility]ACHINE TENDER/spinal headache/spinal leak standpoint, we can order CT [...] that were not corrected during review process. [facility] Other 11-10-2009 History of Past illness Narrative* Problem Noted Date Resolved Date Constipation 09/09/2009 08/28/2014 documented as of this encounter (statuses as of 03/09/2023) [facility]11-10-2009 History of Past illness Narrative* Problem Noted Date Diagnosed Date Resolved Date Constipation 09/09/2009 08/28/2014 documented as of this encounter (statuses as of 08/09/2023) [facility] noteNo [employer] Other Evaluation note* Diagnosis Vikki's thyroiditis- Primary Chronic lymphocytic thyroiditis documented in this encounter [facility] noteNo assessment information [facility]Tr[facility] Work Phone: Evaluation note* Diagnosis Vikki's thyroiditis- Primary Chronic lymphocytic thyroiditis documented in this encounter [facility] note* Diagnosis 31 weeks gestation of Third trimester state, incidental documented in this encounter [facility] Healthcare[facility] note* Diagnosis 33 weeks gestation of Third trimester state, incidental documented in this encounter [facility] Healthcare[facility] note* Diagnosis Third trimester state, incidental 35 weeks gestation of documented in this encounter [facility] Healthcare[facility] note* Diagnosis 36 weeks gestation of Third trimester state, incidental documented in this encounter [facility] Narrative - Reported* Type Description Date Medical History Asthma Medical History Vasovagal syndrome- childhood (r esolved) Medical History Exercise-induced asthma Medical History Pityriasis rosea Medical History Tachycardia Medical History Vikki's thyroiditis Medical History Pre-eclampsia Surgical History [place] teeth extract 2016 Surgical History Vaginal childbirth 03/2022 Hospitalization History See surgical hx [facility] Other Hisjdtd general Narrative - Reported* Type Description Date Medical History Exercise-induced asthma Medical History Pityriasis rosea Medical History Tachycardia Medical History Vikki's thyroiditis Medical History Asthma Medical History Pre-eclampsia Medical History Hypotension Surgical History [place] teeth extract 2016 Surgical History Vaginal childbirth 03/2022 Hospitalization History See surgical hx [facility] Other H[facility]enc general Narrative - Reported* Type Description Date Medical History Exercise-induced asthma Medical History Pityriasis rosea Medical History Tachycardia Medical History Vikki's thyroiditis Medical History Asthma Medical History Pre-eclampsia Medical History Hypotension Medical History GERD (gastroesophageal reflux di sease) Surgical History [place] teeth extract 2016 Surgical History Vaginal childbirth 03/2022 Surgical History EGD/colonoscopy 2011 Hospitalization History See surgical hx [facility] Other Hiszhbx general Narrative - Reported* Type Description Date Medical History Exercise-induced asthma Medical History Pityriasis rosea Medical History Tachycardia Medical History Vikki's thyroiditis Medical History Asthma Medical History Pre-eclampsia Medical History Hypotension Medical History GERD (gastroesophageal reflux di sease) Medical History Thyromegaly Surgical History [place] teeth extract 2017 Surgical History Vaginal childbirth 03/2022 Surgical History EGD/colonoscopy 2012 Hospitalization History See surgical hx [facility] Other History general Narrative - Reported* Type Description Date Medical History Exercise-induced asthma Medical History Pityriasis rosea Medical History Tachycardia Medical History Vikki's thyroiditis Medical History Asthma Medical History Pre-eclampsia Medical History Hypotension Medical History GERD (gastroesophageal reflux di sease) Medical History Thyromegaly Medical History Other idiopathic scoliosis, thor acic region Surgical History [place] teeth extract 2016 Surgical History Vaginal childbirth 03/2022 Surgical History EGD/colonoscopy 2012 Hospitalization History See surgical hx [facility] Other Summary Purpose Family History No Family [...] gastriti s with hemorrhage (K29.01) Referral Organization [facility] Family Ava Rivera Referring Provider First Name Lyndon Referring Provider Last Name [facility] Referring Provider Specialty Nurse Pract itioner Referred Organization [facility] Gastroenterolo gy Referred Provider Patricio Urena Referred Address [address],[address] Referred Provider Specialty Gastroentero logy Referral Priority Routine General Notes Misti Vivas 023 10:08:56 AM >Received today. [facility] request us to fill out their form and fax to them. They will review the referral and call patient to schedule them. Referral was fax. Misti 07/12/2023 01:31:38 PM >Per telephone encounter, patient wants to try [facility]. Sent P2P Reason *03/08 Dr. Hawa Kim - [facility] Endocrinology, [facility]; [employer]- please send this note with 2 previous notes Diagnosis 1 Vikki's thyroidi tis (E06.3) Referral Organization [facility] [place] Referring Provider First Name Lyndon Referring Provider Last Name [facility] Referring Provider Specialty Nurse Pract ittulsar Referred Organization [facility] Referred Address [address] [place], [place],[address] Referred Provider Specialty Endocrinolog y Referral Priority Routine General Notes Misti Vivas 023 01:21:05 PM >Received today and referral was fax with the [facility] Form. They will review and call patient to schedule Reason *03/08 Dizzines s- TERRENCE; Please send this note with 2 previous notes Diagnosis 1 Dizziness (R42) Referral Organization [facility] Referring Provider First Name Lyndon Referring Provider Last Name [facility] Referring Provider Specialty Nurse Pract itteor Referred Organization [facility] Referred Provider Jose Dominguez Referred Address [address] [place], [place],[address] Referred Provider Specialty Neurology Referral Priority Routine [...] section and content) DATE CREATED AUTHOR 08/06/2022 [facility] DATE CREATED AUTHOR AUTHOR'S ORGANIZ ATION 08/20/2023 [facility] DATE CREATED AUTHOR AUTHOR'S ORGANIZ ATION 04/06/2024 [facility] DATE CREATED AUTHOR AUTHOR'S ORGANIZ ATION 05/03/2024 [facility] DATE CREATED AUTHOR AUTHOR'S ORGANIZ ATION 05/18/2024 [facility] DATE CREATED AUTHOR AUTHOR'S ORGANIZ ATION 06/14/2024 [facility] DATE CREATED AUTHOR AUTHOR'S ORGANIZ ATION 06/26/2024 [facility] DATE CREATED AUTHOR AUTHOR'S ORGANIZ ATION 07/07/2024 [facility] DATE CREATED AUTHOR AUTHOR'S ORGANIZ ATION 07/24/2024 [facility] DATE CREATED AUTHOR AUTHOR'S ORGANIZ ATION 07/29/2024 [facility] DATE CREATED AUTHOR AUTHOR'S ORGANIZ ATION 08/21/2024 [facility] DATE CREATED AUTHOR AUTHOR'S ORGANIZ ATION 09/11/2024 [facility] EPIC REASON FOR VISIT [...] or prosecute any alcohol or drug abuse patient.[facility] the event this information is protected by the Federal Confidentiality of Alcohol and Drug Abuse Patient Records regulations: The Federal rules restrict any use of the information to criminally investigate or prosecute any alcohol or drug abuse patient.[facility] Care Teams (unrecognized sec tion and content) [employer] Relationship Specialty Start Date End Date Lyndon Dalal CNP [address] [facility] [address] [place] [address] PCP - General Family Medicine 03/08/23 Lyndon Dalal CNP [address] [address] Referring Family Medicine 03/04/23 Team Status: Active Member Role Status Dates Lyndon Dalal APRN Primary Care Provider Active Team Status: Inactive Member Role Status Dates Lyndon Dalal APRN Primary Care Provider, Attend ing Provider Active [employer] Relationship Specialty Start Date End Date Lyndon Dalal CNP [address] [address] PCP - General Family Medicine 03/08/23 Lyndon Dalal CNP [address] [address] Referring Family Medicine 03/04/23 [employer] Relationship Specialty Start Date End Date Ge Cloud MD [address] [phone] PCP - General Family Medicine 01/25/24 [employer] Relationship Specialty Start Date End Date Ge Cloud MD [address] [phone] PCP - General Family Medicine 01/25/24 [employer] Relationship Specialty Start Date End Date Ge Cloud MD [address] [phone] PCP - General Family Medicine 01/25/24 [employer] Relationship Specialty Start Date End Date Ge Cloud MD [address] [phone] PCP - General Family Medicine 01/25/24 [employer] Relationship Specialty Start Date End Date Ge Cloud MD [address] [id number] PCP - General Family Medicine 01/25/24 Goals [...] BE BASED ON THE PRIMARY CLINICAL RECORDS. [employer] provides no warranty or guarantee of the accuracy or completeness of information in this document.
[2024-09-12 17:53] VITALS: BP 117/72; PULSE 82
== END 2024-09-12 18:15 | disposition home or self-care (01) ==
LOC: FBCO 07:06 → FBC 17:45
PROVIDERS: PCP Family Medicine; Visit Provider Obstetrics & Gynecology
DX: O99.283 Endocrine, nutritional and metabolic diseases complicating pregnancy, third trimester (principal); Z3A.37 37 weeks gestation of pregnancy
CPT/HCPCS: 59025

== ENCOUNTER 2024-09-13 16:16 | Inpatient (IN) | payer OTHER, SELFPAY ==
[2024-09-13] VITALS (24 sets, daily range): BP systolic 91–136; BP diastolic 52–74; PULSE 75–93; TEMP 36.3–36.7
--- OUTSIDE RECORDS SUMMARY | 2024-09-13 16:37 | XMS_ITS | CCD ---
Author Organization [facility] Care Team Providers Care World Travel Counselor Name Role Phone Lyndon Dalal Primary Care Unavailable Juancarlos Maria Attending Unavailable Juancarlos Maria Admitting Unavailable Lyndon Dalal Unavailable Lyndon Dalal CNP Unavailable [phone] Lyndon Dalal CNP Primary Care Provider [phone] ANKIT Dalal Primary Care Provider ANKIT Dalal [...] Dami R Attending Unavailable Pedro Luis VELAZQUEZ, Tavernier Primary Care Provider AJITH, DAMI Attending Unavailable [...] Sulfonamides (Antibiotic); Translations: [sulfa drugs] Drug Allergy [facility] Repository (6 sources) Sulfonamides (Antibiotic); Translations: [SULFA (SULFONAMIDE ANTIBIOTICS)] Drug allergy (disorder) 5 [facility] Repository (2 sources) Sulfonamide Drug allergy [facility] [employer] Other (20 sources) Substance with sulfonamide structure and antibacterial mechanism of action (substance) Drug allergy 5 [facility] (3 sources) Sulfonamides (Antibiotic); Translations: [sulfa drugs] Propensity to adverse reactions (disorder) [facility] Medications Current Medications Medication Drug Class(es) [...] a day for 5 days Aug, Active Aryohoeh-Unr-Jh-FA ( 1 + IRON PO) (11 sources) Start: 024 Webycauq-Ijh-Kz-FA ( 1 + IRON PO) 01/20/2024 Active [...] by fredi th every twenty-four hours Biotin 42981 MCG 1 tablet Orally Once a day OTC Not-Taking/PRN take 1 tablet by fredi th every twenty-four hours Biotin 65481 MCG 1 tablet Orally Once a day OTC Not-Taking take 1 tablet by mouth once [place]ia [place] y Biotin 76847 MCG 1 tablet Orally Once a day OTC Not-Taking BIOTIN ORAL Take by mouth q 24 HR. 0 Active take 1 tablet by mouth once [place] y Biotin 33352 MCG 1 tablet Orally Once a day [...] Comment on above: Take 1 tablet by [facility] once daily. Iodine (14 sources) Iodine 225MCG [...] Probiotic OTC, daily Active lactobacillus rhamnosus gg [id number] unt oral capsule (1 source) Start: 5 End: 3 take 1 capsule by mouth once daily lactobacillus rhamnosus (CULTURELLE) 10 billion cell capsule Indications: Abdominal pain Take 1 capsule by mouth once daily. 30 capsule 2 04/30/2015 03/08/2023 Discontinued Comment on above: Take 1 capsule by mo [facility] once daily. Moringa (14 sources) Moringa 6000MG, [...] above: Take 1 capsule by [facility] once daily. pantoprazole 20 mg delayed release [...] UA Negative Negative - 4(70) +++ mg/dL [facility] Blood, UA Negative Negative - 50 Juanito/mcL [facility] Clarity, UA Clear [facility] Color, UA Yellow [facility] Glucose, UA Negative Negative - 1999(110) ++++ mg/dL [facility] Interpretation and review of laboratory results Normal [facility] Ketones, UA Negative Negative - 160(16) ++++ mg/dL [facility] Leukocytes, UA Trace Negative - 500+++ Ken/mcL [facility] Nitrite, UA Negative Negative - Positive [facility] pH, UA 8.5 5 - 9 [facility] Protein, UA Negative Negative - 2000(20) ++++ mg/dL [facility] Spec Grav, UA 1.015 1 - 1.03 [facility] Urobilinogen, UA 0.2 0.2 - 12 mg/dL [facility] Urinalysis macro (dipstick) panel (U)on 08-27-2024 Bilirubin, UA Negative Negative - 4(70) +++ mg/dL [facility] Blood, UA Negative Negative - 50 Juanito/mcL [facility] Clarity, UA Clear [facility] Color, UA Yellow [facility] Glucose, UA Negative Negative - 1999(110) ++++ mg/dL [facility] Interpretation and review of laboratory results Abnormal [facility] Ketones, UA Negative Negative - 160(16) ++++ mg/dL [facility] Leukocytes, UA Trace Negative - 500+++ Ken/mcL [facility] Nitrite, UA Negative Negative - Positive [facility] pH, UA 6.5 5 - 9 [facility] Protein, UA Negative Negative - 1999(20) ++++ mg/dL [facility] Spec Grav, UA 1.015 1 - 1.03 [facility] Urobilinogen, UA 0.2 0.2 - 12 mg/dL [facility] TSHon 08-20-2024 TSH Qn 1.87 m[IU]/L Normal 0.34-5.60 [facility] Comment on above: Performed By: #### 2 [id number] #### [facility] [address] [place] [address] Urinalysis macro (dipstick) panel (U)on 08-14-2024 Bilirubin, UA Negative Negative - 4(70) +++ mg/dL [facility] Blood, UA Negative Negative - 50 Juanito/mcL [facility] Clarity, UA Clear [facility] Color, UA Yellow [facility] Glucose, UA Negative Negative - 1999(110) ++++ mg/dL [facility] Interpretation and review of laboratory results Abnormal [facility] Ketones, UA Negative Negative - 160(16) ++++ mg/dL [facility] Leukocytes, UA Trace Negative - 500+++ Ken/mcL [facility] Nitrite, UA Negative Negative - Positive [facility] pH, UA 6.5 5 - 9 [facility] Protein, UA Negative Negative - 1999(20) ++++ mg/dL [facility] Spec Grav, UA 1.015 1 - 1.03 [facility] Urobilinogen, UA 0.2 0.2 - 12 mg/dL [facility] Urinalysis macro (dipstick) panel (U)on 07-31-2024 Bilirubin, UA Negative Negative - 4(70) +++ mg/dL [facility] Blood, UA Negative Negative - 50 Juanito/mcL [facility] Clarity, UA Clear [facility] Color, UA Yellow [facility] Glucose, UA Negative Negative - 1999(110) ++++ mg/dL [facility] Interpretation and review of laboratory results Abnormal [facility] Ketones, UA Negative Negative - 160(16) ++++ mg/dL [facility] Leukocytes, UA Positive Negative - 500+++ Ken/mcL [facility] Comment on above: small Nitrite, UA Negative Negative - Positive [facility] pH, UA 6.5 5 - 9 [facility] Protein, UA Negative Negative - 1999(20) ++++ mg/dL [facility] Spec Grav, UA 1.010 1 - 1.03 [facility] Urobilinogen, UA 0.2 0.2 - 12 mg/dL [facility] CBC w/ Auto Diffon 4 Basophils/100 WBC (Bld) 0.4 % Normal 0.0-2.0 [facility] Comment on above: Performed By: #### 2 [id number] #### [facility] [address] [place] [address] Basophils/Leukocyt es Auto (Bld) [Pure # fraction] 0.0 E9/L Normal 0.0-0.2 [facility] Comment on above: Performed By: #### 2 276827 #### [facility] [address] [place] [address] Eosinophils (Bld) [#/Vol] 0.2 E9/L Normal 0.0-0.5 [facility] Comment on above: Performed By: #### 2 620308 #### [facility] [address] [place] [address] Eosinophils/100 WBC (Bld) 2.9 % Normal 0.0-8.0 [facility] Comment on above: Performed By: #### 2 836645 #### [facility] [address] [place] [address] Erythrocyte distribution width (RBC) [Ratio] 13.6 % Normal 10.9-14.2 [facility] Comment on above: Performed By: #### 2 690125 #### [facility] [address] [place] [address] Hematocrit (Bld) [Volume fraction] 37.3 % Normal 34.0-46.0 [facility] Comment on above: Performed By: #### 2 276172 #### [facility] [address] [place] [address] Hemoglobin (Bld) [Mass/Vol] 12.8 g/dL Normal 12.0-16.0 [facility] Comment on above: Performed By: #### 2 989852 #### [facility] [address] [place] [address] Lymphocytes (Bld) [#/Vol] 1.9 E9/L Normal 1.0-4.0 [facility] Comment on above: Performed By: #### 2 013992 #### [facility] [address] [place] [address] Lymphocytes/100 WBC (Bld) 24.0 % Normal 14.0-50.0 [facility] Comment on above: Performed By: #### 2 320465 #### [facility] [address] [place] [address] MCH (RBC) [Entitic mass] 30.5 pg Normal 27.0-34.0 [facility] Comment on above: Performed By: #### 2 371189 #### [facility] [address] [place] [address] MCHC (RBC) [Mass/Vol] 34.2 g/dL Normal 31.4-36.0 [facility] Comment on above: Performed By: #### 2 815970 #### [facility] [address] [place] [address] MCV (RBC) [Entitic vol] 89.0 fL Normal 80.0-100.0 [facility] Comment on above: Performed By: #### 2 938388 #### [facility] [address] [place] [address] Monocytes (Bld) [#/Vol] 0.4 E9/L Normal 0.2-1.0 [facility] Comment on above: Performed By: #### 2 240518 #### [facility] [address] [place] [address] Neutrophils (Bld) [#/Vol] 5.5 E9/L Normal 2.0-7.5 [facility] Comment on above: Performed By: #### 2 856316 #### [facility] [address] [place] [address] Neutrophils/100 WBC (Bld) 67.8 % Normal 36.0-75.0 [facility] Comment on above: Performed By: #### 2 224142 #### [facility] [address] [place] [address] Platelet mean volume (Bld) [Entitic vol] 8.3 fL Normal 6.4-10.8 [facility] Comment on above: Performed By: #### 2 724361 #### [facility] [address] [place] [address] Platelets (Bld) [#/Vol] 267.0 E9/L Normal 150.0-500.0 [facility] Comment on above: Performed By: #### 2 795154 #### [facility] [address] [place] [address] RBC (Bld) [#/Vol] 4.2 E12/L Low 4.3-5.9 [facility] Comment on above: Performed By: #### 2 064478 #### [facility] [address] [place] [address] WBC corrected for nucl RBC Auto (Bld) [#/Vol] 8.0 E9/L Normal 4.0-11.0 [facility] Comment on above: Performed By: #### 2 184634 #### [facility] [address] [place] [address] Free T4on 07-23-2024 Free T4 [Mass/Vol] 0.57 ng/dL Low 0.58-1.64 [facility] Comment on above: Performed By: #### 2 330865 #### [facility] [address] [place] [address] Lyteson 07-23-2024 Anion gap [Moles/Vol] 12 mmol/L Normal 6-16 [facility] Comment on above: Performed By: #### 2 029904 #### [facility] [address] [place] [address] Chloride [Moles/Vol] 105 mmol/L Normal 101-111 [facility] Comment on above: Performed By: #### 2 447415 #### [facility] [address] [place] [address] CO2 [Moles/Vol] 24 mmol/L Normal 21-31 [facility] Comment on above: Performed By: #### 2 500568 #### [facility] [address] [place] [address] Potassium [Moles/Vol] 3.5 mmol/L Normal 3.5-5.3 [facility] Comment on above: Performed By: #### 2 563250 #### [facility] [address] [place] [address] Sodium [Moles/Vol] 137 mmol/L Normal 135-145 [facility] Comment on above: Performed By: #### 2 701839 #### [facility] [address] [place] [address] TSHon 07-23-2024 TSH Qn 2.26 m[IU]/L Normal 0.34-5.60 [facility] Comment on above: Performed By: #### 2 558609 #### [facility] [address] [place] [address] CMPon 06-25-2024 Albumin [Mass/Vol] 3.6 g/dL Normal 3.3-5.0 [facility] Comment on above: Performed By: #### 2 230598 #### [facility] [address] [place] [address] Albumin/Globulin (S) [Mass conc ratio] 1.3 Normal 1.1-2.2 [facility] Comment on above: Performed By: #### 2 117803 #### [facility] [address] [place] [address] ALP [Catalytic activity/Vol] 63 Int._Unit/L Normal 21-98 [facility] Comment on above: Performed By: #### 2 178059 #### [facility] [address] [place] [address] ALT No additional P-5'-P [Catalytic activity/Vol] 13 Int._Unit/L Normal 6-46 [facility] Comment on above: Performed By: #### 2 319000 #### [facility] [address] [place] [address] Anion gap [Moles/Vol] 10 mmol/L Normal 6-16 [facility] Comment on above: Performed By: #### 2 139873 #### [facility] [address] [place] [address] AST [Catalytic activity/Vol] 12 Int._Unit/L Normal 5-43 [facility] Comment on above: Performed By: #### 2 930346 #### [facility] [address] [place] [address] Bilirubin [Mass/Vol] 0.7 mg/dL Normal 0.0-1.1 [facility] Comment on above: Performed By: #### 2 940154 #### [facility] [address] [place] [address] Calcium [Mass/Vol] 8.6 mg/dL Low 8.9-11.1 [facility] Comment on above: Performed By: #### 2 092772 #### [facility] [address] [place] [address] Chloride [Moles/Vol] 104 mmol/L Normal 101-111 [facility] Comment on above: Performed By: #### 2 052128 #### [facility] [address] [place] [address] CO2 [Moles/Vol] 25 mmol/L Normal 21-31 [facility] Comment on above: Performed By: #### 2 731940 #### [facility] [address] [place] [address] Creatinine [Mass/Vol] 0.4 mg/dL Low 0.5-1.3 [facility] Comment on above: Performed By: #### 2 945592 #### [facility] [address] [place] [address] Globulin (S) [Mass/Vol] 2.8 g/dL Normal 1.4-4.0 [facility] Comment on above: Performed By: #### 2 257112 #### [facility] [address] [place] [address] Glucose [Mass/Vol] 97 mg/dL Normal 55-199 [facility] Comment on above: Performed By: #### 2 713130 #### [facility] [address] [place] [address] Potassium [Moles/Vol] 3.4 mmol/L Low 3.5-5.3 [facility] Comment on above: Performed By: #### 2 176992 #### [facility] [address] [place] [address] Protein [Mass/Vol] 6.4 g/dL Normal 6.0-7.8 [facility] Comment on above: Performed By: #### 2 982207 #### [facility] [address] [place] [address] Sodium [Moles/Vol] 136 mmol/L Normal 135-145 [facility] Comment on above: Performed By: #### 2 179359 #### [facility] [address] [place] [address] Urea nitrogen [Mass/Vol] 8 mg/dL Normal 5-21 [facility] Comment on above: Performed By: #### 2 328624 #### [facility] [address] [place] [address] Urea nitrogen/Creatinin e [Mass ratio] 20 No Units Normal 10-20 [facility] Comment on above: Performed By: #### 2 641258 #### [facility] [address] [place] [address] TSHon 06-25-2024 TSH Qn 3.63 m[IU]/L Normal 0.34-5.60 [facility] Comment on above: Performed By: #### 2 842769 #### [facility] [address] [place] [address] eGFRon 06-25-2024 eGFR 142 mL/min/1.73 m2 Normal >=59 [facility] Comment on above: Order Comment: Order added by Discern Expert. Performed By: #### 1 [id number] #### [facility] [address] [place] [address] TSHon 05-31-2024 TSH Qn 1.99 m[IU]/L Normal 0.34-5.60 [facility] Comment on above: Performed By: #### 2 781034 #### [facility] [address] [place] [address] TSHon 05-01-2024 TSH Qn 1.54 m[IU]/L Normal 0.34-5.60 [facility] Comment on above: Performed By: #### 2 657508 #### [facility] [address] [place] [address] Consent for Treatmenton Consent for Treatment [id number] F Normal [facility] Physician Orderon 04-04-2024 Physician Order [id number]#1.00TI FF Normal [facility] TSHon 04-04-2024 TSH Qn 2.73 m[IU]/L Normal 0.34-5.60 [facility] Comment on above: Performed By: #### 2 127142 #### [facility] [address] [place], [place] [address] XR Spine Cervical 4 or 5 Vie [...] mGy = . DAP = . Normal [facility] XR Spine Thoracic 3 Viewson 09-16-2023 XR [...] mGy = . DAP = . Normal [facility] Physician Orderon 09-15-2023 Physician Order [id number] IFF Normal [facility] T4 Free SerPl-mCncon 08-18- 023 Free T4 [Mass/Vol] 1.2 ng/dL Normal 0.9-1.7 [facility] Comment on above: Order Comment: Speci men Type: BLOOD SPECIMEN Ordering Facility: [facility] Address: [address] [place] [address] Performed By: #### 3 024-7, 3016-3 #### [facility] CLIA [id number] [address] [place] [address] [place] TSH SerPl-aCncon 08-18-2023 TSH Qn 2.280 m[IU]/L Normal 0.270-4.[address] [facility] Comment on above: Order Comment: Speci men Type: BLOOD SPECIMEN Ordering Facility: [facility] Address: [address] [place] [address] Result Comment: If t he patient is , TSH reference range varies by gestational period: First Trimester (weeks 9-12): 0.180-2.990 mIU/L Second Trimester: 0.110-3.980 mIU/L Third Trimester: 0.480-4.710 mIU/L Noe Ramon et al. A Practical Approach for the Verifications and Determination of Site- and Trimester-Specific Reference Intervals for Thyroid Function tests in . Thyroid, 2019:29:3:412-420. Gregor E, et al. 2017 Guidelines of the [place] Thyroid Association for the Diagnosis and Management of Thyroid Disease during and the . Thyroid, 2017:27:3:315-389. Performed By: #### 3 024-7, 3016-3 #### [facility] CLIA [id number] [address] [place] [address] [place] Consent for Treatmenton Consent for Treatment [id number]: 127 Normal [facility] US Renalon 07-08-2023 US Renal Exam Date/Time: [...] M.D. Transcribed by: MORENO Technologist: EMILY Normal [facility] XR Abdomen 1 Viewon 07-08-20 XR Abdomen [...] mGy = . DAP = . Normal [facility] Ambulatory Visit Summaryon 0 06-21-2023 Ambulatory Visit Summary EMMY DALE :2000 Visit Date:06/21/2023 Ambulatory Visit Instructions Your Diagnosis Urinary crystals Recurrent UTI Urethral stricture Gross hematuria Tests Performed Urnls Dip Stick Auto w/o Microscopy POC 79589 Your Care Team Attending Physician - SBOEIDA THOMPSON PA-C Primary Care Physician - LYNDON [...] pt. Where: [address] [place] [address] You Need to Complete the Following US Renal, *Est. 06/21/23 due within 1 months, Routine, Order for future visit, Transport Mode: Ambulatory, Reason: Other (please specify), Reason: Kidney Stones, No, Kidney stones, pp_set_radiology_subspec ialty, [facility] [place] XR Abdomen 1 View, *Est. 06/21/23 due within 1 months, Routine, Order for future visit, Transport Mode: Ambulatory, Reason: Kidney stone, No, Kidney stones, pp_set_radiology_subspec ialty, [facility] [place] Medications What How Much When Instructions Unchanged busPIRone (busPIRone 10 mg Tab) 2 times a day Contact prescribing physician if questions or concerns Unchanged levothyroxine (Synthroid 25 mcg(0.025 mg) Tab) Every day Contact prescribing physician if questions or concerns Test Results Urnls Dip Stick Auto w/o Microscopy POC 31522 (06/21/2023) Bilirubin Urine Dipstick - Negative Blood Urine Dipstick - Negative Glucose Urine Dipstick - Negative Ketones Urine Dipstick - Negative Leukocytes Urine Dipstick - Negative Nitrite Urine Dipstick - Negative Protein Urine Dipstick - Negative Specific Carroll Urine Dipstick - 1.010 Urine Appearance Urine [...] ? 8 oz (237 mL) of milk, lysnmnd-kgkrdwwzrvbv-yig ry milk, and calcium-fortifiedfruit juice. Calcium-fortified means [...] wheat cereals. (more content not included)... Normal [facility] Patient Educationon 06-21-20 Patient Education Nephrology Dietary [...] ? 8 oz (237 mL) of milk, yfwiint-juvcskxwsvzl-fhc ry milk, and calcium-fortifiedfruit juice. Calcium-fortified means [...] Spinach (cooked), rhubarb, beets, sweet potatoes, and Gambian chard. ? Peanuts. ? Potato chips, irish fries, and baked potatoes with skin on. ? Nuts and nut products. ? Chocolate. ? If you regularly take a diuretic medicine, make sure to eat at least 1 or 2 servings of fruits or vegetables that are high in potassium each day. These include: ? Avocado. ? Banana. ? Marathon, prune, carrot, or tomato juice. ? Baked [...] fish oil, or vitamin B6. ? Take zjkp-duj-ygnjoug and prescription medicines only as told by your health care provider. These include supplements. What foods should I limit? Limit your in (more content not included)... Normal [facility] Urology Office/Clinic Noteon 06-21-2023 Urology Office/Clinic Note [...] pass. Will send CORDELIA and KUB to [facility] to see if any persistent hydro/any remaining [...] Urnls Dip Stick Auto w/o Microscopy POC 54564 4. Gross hematuria (R31.0: Gross hematuria) CORDELIA [...] When Contact Information SOBEIDA THOMPSON PA-C, URL [address] [place] [address] Additional Instructions: will call pt. Patient Education [...] History Cystour (more content not included)... Normal [facility] Comment on above: Result Comment: Elec tronically Signed By: SOBEIDA THOMPSON PA-C\.br\Date and Time Signed: 06/21/23 12:44 EDT\.br\Electronically Co-Signed By: Laura Lou\gonzalo\Date and Time Co-Signed: 06/21/23 12:25 EDT PAP [id number] 06-07-2023 Cytology report Cyto stain Doc (Cvx/Vag) Note Invalid Interpretation Code [facility] Comment on above: Result Comment: TEST S RESULT FLAG UNITS REF RANGE LAB Clinician Provided Cytology Information Source.............Endocervix No. of containers..01 ThinPrep Vial DIAGNOSIS: 01 NEGATIVE FOR INTRAEPITHELIAL LESION OR MALIGNANCY. Specimen adequacy: 01 Satisfactory for evaluation. Endocervical and/or squamous metaplastic cells (endocervical component) are present. Performed by: Clif Bolaños, Chronic Condition Nurse ([facility]) . 01 Note: Note 01 The [...] High <-Panic Low,>-Panic High,A-Abnormal,AA-Critical Abnormal Performed at: [facility] [address] Lisa Ellington MD, Performed at: [facility] [address] KELSEA Walsh [id number] MD Chandana Gonzalez Performed By: #### 3 [id number] ####[facility] [address] [place] [address] Consent for Treatmenton Consent for Treatment [id number]: 127 Normal [facility] Heart and Vascular Office/Cl inic Noteon 06-01-2023 [...] but unfortunately she was called by the blindstitch machine operator and told that it was not [...] her Sy (more content not included)... Normal [facility] Comment on above: Result Comment: Elec tronically Signed By: SAMUEL VELAZQUEZ, Benjamin Lopez\.br\Date and Time Signed: 06/01/23 14:25 EDT PAP [id number] 06-01-2023 Collection Technique BRUSH-SPATULA Normal [facility] Comment on above: Performed By: #### 3 [id number] ####[facility] [address] [place] [address] Gynecological Body Site ENDOCERVIX [facility] Comment on above: Performed By: #### 3 [id number] ####[facility] [address] [place] [address] Physician Orderon 06-01-2023 Physician Order [id number]#1.00CD :127 [facility] Physician Order [id number]#1.00CD: 127 [facility] C Urineon 05-27-2023 Bacteria identified Cx [...] Locations R1: This test was performed at: [facility], [address] [place] [address], [address] , [place], Normal [facility] Comment on above: Performed By: #### 2 221225 ####[facility] [address] [place] [address] T4 Free SerPl-mCncon 023 Free T4 [Mass/Vol] 1.2 ng/dL Normal 0.9-1.7 [facility] Comment on above: Order Comment: Rozina florez Type: BLOOD SPECIMEN Ordering Facility: [facility] Address: [address] [place] [address] Performed By: #### 3 024-7, 3016-3 #### [facility] CLIA [id number] [address] TSH SerPl-aCncon 05-26-2023 TSH Qn 2.260 m[IU]/L Normal 0.270-4.[address] [facility] Comment on above: Order Comment: Rozina florez Type: BLOOD SPECIMEN Ordering Facility: [facility] Address: [place] [address] Result Comment: If t he patient is , TSH reference range varies by gestational period: First Trimester (weeks 9-12): 0.180-2.990 mIU/L Second Trimester: 0.110-3.980 mIU/L Third Trimester: 0.480-4.710 mIU/L Noe Ramon et al. A Practical Approach for the Verifications and Determination of Site- and Trimester-Specific Reference Intervals for Thyroid Function tests in . Thyroid, 2019:29:3:412-420. Gregor E, et al. 2017 Guidelines of the [place] Thyroid Association for the Diagnosis and Management of Thyroid Disease during and the . Thyroid, 2017:27:3:315-389. Performed By: #### 3 024-7, 3016-3 #### [facility] CLIA [id number] [address] [place] [address] [place] Consent for Treatmenton 05-01 Consent for Treatment [id number]: 127 Normal [facility] Physician Orderon 05-25-2023 Physician Order [id number]#1.00CD:12 7 Normal [facility] Urinalysison 05-25-2023 Bacteria LM Ql (Urine sed) 2+ /HPF Abnormal Trace [facility] Comment on above: Performed By: #### 1 [id number] ####[facility] [address] [place] [address] Bilirubin Ql (U) Negative Normal Negative [facility] Comment on above: Performed By: #### 1 [id number] ####[facility] [address] [place] [address] Clarity (U) SL CLOUDY Abnormal Clear [facility] Comment on above: Performed By: #### 1 [id number] ####[facility] [address] [place] [address] Color (U) YELLOW Normal Yellow [facility] Comment on above: Performed By: #### 1 [id number] ####[facility] [address] [place] [address] Crystals LM Ql (Urine sed) Present Normal [facility] Comment on above: Performed By: #### 1 [id number] ####[facility] [address] [place] [address] Epithelial cells.squamous LM.HPF (Urine sed) [#/Area] 0-2 Normal 0-2 [facility] Comment on above: Performed By: #### 1 [id number] ####[facility] [address] [place] [address] Glucose Test strip (U) [Mass/Vol] Negative Normal Negative [facility] Comment on above: Performed By: #### 1 [id number] ####[facility] [address] [place] [address] Hemoglobin Ql (U) 2+ Abnormal Negative [facility] Comment on above: Performed By: #### 1 [id number] ####[address] [address] Ketones (U) [Mass/Vol] Negative Normal Negative [facility] Comment on above: Performed By: #### 1 [id number] ####[address] [address] Dunmor.plasma/Lit hium.RBC (Bld) [Mass ratio] 0-3 Normal 0-3 [facility] Comment on above: Performed By: #### 1 [id number] ####[address] [address] Mucus Ql (Urine sed) TRACE Normal [facility] Comment on above: Performed By: #### 1 [id number] ####[address] [address] Nitrite Ql (U) Positive Abnormal Negative [facility] Comment on above: Performed By: #### 1 [id number] ####[address] [address] pH (U) 6.0 [pH] Invalid Interpretation Code 5.0-9.0 [facility] Comment on above: Performed By: #### 1 [id number] ####[address] [address] Protein (U) [Mass/Vol] Negative Normal Negative [facility] Comment on above: Performed By: #### 1 [id number] ####[address] [address] Specific gravity (U) [Rel density] 1.010 Invalid Interpretation Code 1.005-1.030 [facility] Comment on above: Performed By: #### 1 [id number] ####[address] [address] Type of Urine collection method Clean Catch Normal [facility] Comment on above: Performed By: #### 1 [id number] ####[address] [place] [address] Urobilinogen Qn (U) 0.2 {Catarino'U}/dL Normal 0.0-1.0 [facility] Comment on above: Performed By: #### 1 [id number] ####[facility] [address] [place] [address] WBC Auto Ql (U) 1+ Abnormal Negative [facility] Comment on above: Performed By: #### 1 [id number] ####[facility] [address] [place] [address] WBC LM.HPF (Urine sed) [#/Area] 26-30 Abnormal 0-5 [facility] Comment on above: Performed By: #### 1 [id number] ####[facility] [address] [place] [address] Consent for Treatmenton 04-30 Consent for Treatment [id number]: 127 Normal [facility] Consent for Treatmenton Consent for Treatment [id number]: 127 Normal [facility] Office/Cl inic Noteon 05-05-2023 [...] 1 month. (more content not included)... Normal [facility] Comment on above: Result Comment: Elec tronically Signed By: Samuel VELAZQUEZ, Benjamin Lopez\.cee\Date and Time Signed: 05/05/23 16:11 EDT Physician Orderon 05-05-2023 Physician Order [id number] :127 [facility] Stress EKG Tracingson 2022 Stress EKG Tracings [id number]: 127 [facility] Consent for Treatmenton 03-31 Consent for Treatment [id number]: 127 Normal [facility] T3Free SerPl-mCncon 04-06-20 23 Free T3 [Mass/Vol] 3.3 pg/mL Normal 2.3-4.1 [facility] Comment on above: Order Comment: Speci men Type: BLOOD SPECIMEN Ordering Facility: [facility] Address: [address] [place] [address] Performed By: #### 3 051-0, 3024-7, 3016-3 #### [facility] CLIA [id number] [address] [place] [address] [place] T4 Free SerPl-mCncon 023 Free T4 [Mass/Vol] 1.4 ng/dL Normal 0.9-1.7 [facility] Comment on above: Order Comment: Speci men Type: BLOOD SPECIMEN Ordering Facility: [facility] Address: [address] [place] [address] Performed By: #### 3 051-0, 3024-7, 3016-3 #### [facility] CLIA [id number] [address] [place] [address] [place] THYROGLOBULIN ABon Thyroglobulin Ab Qn 1.8 [IU]/mL Normal <4.[address] [facility] Comment on above: Order Comment: Speci men Type: BLOOD SPECIMEN Ordering Facility: [facility] Address: [address] [place] [address] Result Comment: The Thyroglobulin Antibody test was performed using the [employer] DXI paramagnetic particle chemiluminescent immunoassay method. Results obtained with different assay methods or kits cannot be used interchangeably. Performed By: #### T JASON #### [facility] CLIA [id number] [address] [place] [address] [place] THYROID PEROXIDASE ANTIBODY BLOODon 04-06-2023 [place] Qn 4572.0 [IU]/mL High <5.[address] [facility] Comment on above: Order Comment: Rozina florez Type: BLOOD SPECIMEN Ordering Facility: [facility] Address: [address] [address] Result Comment: Thyr oid Peroxidase Antibody test is used as an aid in diagnosis of autoimmune thyroid disease. Clinical correlation is required. Performed By: #### M ICRO #### [facility] CLIA [id number] STATES OF [facility] TSH SerPl-aCncon 04-06-2023 TSH Qn 6.050 m[IU]/L High 0.270-4.[address] [facility] Comment on above: Order Comment: Rozina florez Type: BLOOD SPECIMENOrdering Facility: [facility] Address: [address] [address] Result Comment: If t he patient is , TSH reference range varies by gestational period: First Trimester (weeks 9-12): 0.180-2.990 mIU/L Second Trimester: 0.110-3.980 mIU/L Third Trimester: 0.480-4.710 mIU/L Noe Ramon et al. A Practical Approach for the Verifications and Determination of Site- and Trimester-Specific Reference Intervals for Thyroid Function tests in . Thyroid, 2019:29:3:412-420. Gregor Banegas, et al. 2017 Guidelines of the [place] Thyroid Association for the Diagnosis and Management of Thyroid Disease during and the . Thyroid, 2017:27:3:315-389. Performed By: #### 3 051-0, 3024-7, 3016-3 ####[facility] [id number] [address] OF [facility] CNOVon 03-08-2023 CNOV Office Visit (ENDOLN ) -------- EMMY DALE ([id number]) 1 F Date Time Provider Department 03/08/23 [...] in blood . was at [facility] when baby thought to be related to [...] involuntary motions. (more content not included)... Normal [facility] Vital Signs Date Time Vital Sign Value Performing Clinician Facility 09-03-2024 08:55-0500 Body weight 103.33 kg Dami Ajith DO Work Phone: [facility] 09-03-2024 08:55-0500 Diastolic blood pressure 72 mm[Hg] Dami Ajith DO Work Phone: [facility] 09-03-2024 08:55-0500 Systolic blood pressure 118 mm[Hg] Dami Ajith DO Work Phone: [facility] 08-27-2024 08:50-0400 Body weight 104.33 kg Dami Ajith DO Work Phone: [facility] 08-27-2024 08:50-0400 Diastolic blood pressure 68 mm[Hg] Dami Ajith DO Work Phone: [facility] 08-27-2024 08:50-0400 Systolic blood pressure 110 mm[Hg] Dami Ajith DO Work Phone: [facility] 08-14-2024 09:36-0400 Body weight 101.61 kg Dami Ajith DO Work Phone: [facility] 08-14-2024 09:36-0400 Diastolic blood pressure 70 mm[Hg] Dami Ajith DO Work Phone: [facility] 08-14-2024 09:36-0400 Systolic blood pressure 120 mm[Hg] Dami Ajith DO Work Phone: [facility] 07-31-2024 08:55-0400 Body weight 99.34 kg Dami Ajith DO Work Phone: [facility] 07-31-2024 08:55-0400 Diastolic blood pressure 68 mm[Hg] Dami Ajith DO Work Phone: [facility] 07-31-2024 08:55-0400 Systolic blood pressure 112 mm[Hg] Dami Serrano Phone: [facility] 09-15-2023 13:30-0500 Body height 162.56 cm Lyndon Easterwood Other [facility] Other 09-15-2023 13:30-0500 Body mass index (BMI) [Ratio] 30.21 kg/m2 Lyndon Easterwood Other [facility] Other 09-15-2023 13:30-0500 Body weight 79.83 kg Lyndon Easterwood Other [facility] Other 09-15-2023 13:30-0500 Diastolic blood pressure 68 mm[Hg] Lyndon Easterwood Other [facility] Other 09-15-2023 13:30-0500 Respiratory rate 18 /min Lyndon Easterwood Other [facility] Other 09-15-2023 13:30-0500 SaO2% (BldA) [Mass fraction] 99 % Lyndon Easterwood Other [facility] Other 09-15-2023 13:30-0500 Systolic blood pressure 118 mm[Hg] Lyndon Easterwood Other [facility] Other 07-12-2023 09:15-0400 Body height 162.56 cm Lyndon Easterwood Other [facility] Other 07-12-2023 09:15-0400 Body mass index (BMI) [Ratio] 29.86 kg/m2 Lyndon Easterwood Other [facility] Other 07-12-2023 09:15-0400 Body temperature 98.6 [degF] Lyndon Easterwood Other [facility] Other 07-12-2023 09:15-0400 Body weight 78.93 kg Lyndon Easterwood Other [facility] Other 07-12-2023 09:15-0400 Diastolic blood pressure 70 mm[Hg] Lyndon Easterwood Other [facility] Other 07-12-2023 09:15-0400 Respiratory rate 20 /min Lyndon Easterwood Other [facility] Other 07-12-2023 09:15-0400 SaO2% (BldA) [Mass fraction] 98 % Lyndon Easterwood Other [facility] Other 07-12-2023 09:15-0400 Systolic blood pressure 112 mm[Hg] Lyndon Easterwood Other [facility] Other 05-25-2023 17:30-0400 Body height 162.56 cm Lyndon Easterwood Other [facility] Other 05-25-2023 17:30-0400 Body mass index (BMI) [Ratio] 30.04 kg/m2 Lyndon Easterwood Other [facility] Other 05-25-2023 17:30-0400 Body temperature 98.2 [degF] Lyndon Easterwood Other [facility] Other 05-25-2023 17:30-0400 Body weight 79.38 kg Lyndon Easterwood Other [facility] Other 05-25-2023 17:30-0400 Diastolic blood pressure 72 mm[Hg] Lyndon Easterwood Other [facility] Other 05-25-2023 17:30-0400 Respiratory rate 20 /min Lyndon Joseerwood Other [facility] Other 05-25-2023 17:30-0400 SaO2% (BldA) [Mass fraction] 99 % Lyndon Dalal Other [facility] Other 05-25-2023 17:30-0400 Systolic blood pressure 110 mm[Hg] Lyndon Joseerrick Other [facility] Other 03-08-2023 16:13-0400 Body weight 83.92 kg Martina Rodriguez MD, PhD Work Phone: [facility] 03-08-2023 16:13-0400 Diastolic blood pressure 76 mm[Hg] Martina Rodriguez MD, PhD Work Phone: [facility] 03-08-2023 16:13-0400 Systolic blood pressure 116 mm[Hg] Martina Rodriguez MD, PhD Work Phone: [facility] 08-05-2022 16:00-0400 Body height 162.56 cm Lyndon Dalal Other [facility] Other 08-05-2022 16:00-0400 Body mass index (BMI) [Ratio] 32.78 kg/m2 Lyndon Garciaerwood Other [facility] Other 08-05-2022 16:00-0400 Body temperature 98 [degF] Lyndon Joseerwood Other [facility] Other 08-05-2022 16:00-0400 Body weight 86.64 kg Lyndon Dalal Other [facility] Other 08-05-2022 16:00-0400 Diastolic blood pressure 76 mm[Hg] Lyndon Dalal Other [facility] Other 08-05-2022 16:00-0400 Respiratory rate 20 /min Lyndon Dalal Other [facility] Other 08-05-2022 16:00-0400 SaO2% (BldA) [Mass fraction] 99 % Lyndon Dalal Other [facility] Other 08-05-2022 16:00-0400 Systolic blood pressure 122 mm[Hg] Lyndon Dalal Other [facility] Other Encounters Encounter Date Encounter Type Care [...] OB Start: 07-31-2024 End: 07-31-2024 flow sheet Daim Ajith DO Work Phone: [facility] Comment on above: 31 weeks gestation o f ; Third trimester Start: 07-31-2024 End: 07-31-2024 ambulatory DAMI AJITH Not Available Start: 07-23-2024 End: 07-23-2024 ambulatory Dami R AJITH Facility:[facility] Start: 07-19-2024 End: 07-19-2024 ambulatory LELE ALEJO Not Available Start: 07-05-2024 End: 07-05-2024 ambulatory DAMI AJITH Not Available Start: 06-25-2024 End: 06-25-2024 ambulatory DAMI AJITH Not Available Start: 06-25-2024 End: 06-25-2024 ambulatory LELE ALEJO Facility:[facility] Start: 06-12-2024 End: 06-12-2024 ambulatory DAMI R AJITH [facility] Start: 06-04-2024 End: 06-04-2024 ambulatory LELE ALEJO Not Available Start: 05-14-2024 End: 05-14-2024 ambulatory DAMI R AJITH [facility] Start: 05-08-2024 End: 05-08-2024 ambulatory DAMI AJITH Not Available Start: 04-09-2024 End: 04-09-2024 ambulatory DAMI AJITH Not Available Start: 04-04-2024 ambulatory Dami R AJITH Facility: [facility] Start: 03-12-2024 End: 03-12-2024 ambulatory DAMI AJITH Not Available Start: 02-24-2024 End: 02-24-2024 ambulatory DAMI AJITH Not Available Start: 12-04-2023 End: 12-04-2023 ambulatory Lyndon Fallwood Other [facility] Other Start: 12-04-2023 Encounter by Adbongo Lyndon Dalal [facility] Start: 11-05-2023 End: 11-05-2023 ambulatory Lyndon Eufemiawood Other [facility] Other Start: 11-05-2023 Encounter by Adbongo Lyndon Dalal [facility] Start: 10-25-2023 End: 10-25-2023 ambulatory Lyndon J Eufemiawood Facility:[facility] Start: 10-10-2023 End: 10-10-2023 ambulatory Lyndon Joseerwood Other [facility] Other Start: 10-10-2023 Telephone encounter Lyndon Fallwood [facility] Start: 09-26-2023 End: 09-26-2023 ambulatory Lyndon Joseerwood Other [facility] Other Start: 09-26-2023 Telephone encounter Lyndon Fallwood [facility] Start: 09-18-2023 End: 09-18-2023 ambulatory Lyndon Joseerwood Other [facility] Other Start: 09-18-2023 Telephone encounter Lyndon Easterwood [facility] Start: 09-15-2023 End: 09-15-2023 ambulatory LYNDON JOSEERWOOD [facility] Other Start: 09-15-2023 Office outpatient visit 25 minutes Lyndon Easterwood [facility] Start: 08-18-2023 End: 08-18-2023 ambulatory LYNDON EUFEMIAWOOD Facility:[facility] Start: 08-05-2023 Get Medical Advice Martina Rodriguez MD, PhD Work Phone: Endocrinology Comment on above: lab orders Start: 07-22-2023 End: 07-22-2023 ambulatory Lyndon Joseerwood Other [facility] Other Start: 07-22-2023 Telephone encounter Lyndon Fallwood [facility] Start: 07-12-2023 End: 07-12-2023 ambulatory Lyndon Eufemiawood Other [facility] Other Start: 07-12-2023 Office outpatient visit 25 minutes Lyndon Joseerwood [facility] Start: 07-12-2023 Telephone encounter Lyndon Joseerwood [facility] Start: 07-08-2023 End: 07-08-2023 ambulatory SOBEIDA THOMPSON Facility:[facility] Start: 06-27-2023 End: 06-27-2023 ambulatory Lyndon Joseerwood Other [facility] Other Start: 06-27-2023 Telephone encounter Lyndon Easterwood [facility] Start: 06-21-2023 End: 06-21-2023 ambulatory SOBEIDA THOMPSON Facility:[facility] Start: 06-01-2023 End: 06-01-2023 ambulatory Benjamin BAKER Facility:[facility] Start: 06-01-2023 End: 06-01-2023 ambulatory Bill Kat Facility:[facility] Start: 05-26-2023 End: 05-26-2023 [facility] Start: 05-25-2023 End: 05-25-2023 ambulatory [facility] Other Start: 05-25-2023 Office outpatient visit 15 minutes Lyndon [facility] Start: 05-17-2023 End: 05-17-2023 ambulatory Benjamin BAKER Facility:[facility] Start: 05-05-2023 End: 05-05-2023 ambulatory Benjamin BAKER Facility:[facility] Start: 04-15-2023 End: 04-15-2023 ambulatory Benjamin BAKER Facility:[facility] Start: 04-06-2023 End: 04-06-2023 ambulatory MARTINA RODRIGUEZ Facility:[facility] Start: 03-08-2023 End: 03-08-2023 ambulatory MARTINA RODRIGUEZ Facility:[facility] Start: 03-08-2023 End: 03-08-2023 Patient encounter procedure Martina Rodriguez MD, PhD Work Phone: Endocrinology Comment on above: Vikki's thyroidi tis (Primary Dx) Start: 02-28-2023 End: 02-28-2023 [facility] Other Start: 02-28-2023 Telephone encounter Lyndon Dalal [facility] Start: 02-21-2023 End: 02-21-2023 ambulatory BUSINESS ECONOMIST Lyndon Dalal Work Phone: [facility] Work Phone: Start: 02-21-2023 End: 02-21-2023 Discharged Recurring BUSINESS ECONOMIST Lyndon Dalal Work Phone: [facility] [place] Work Phone: Start: 08-09-2022 End: 08-09-2022 ambulatory Lyndon Dalal Other [facility] Other Start: 08-09-2022 Telephone encounter Lyndon Dalal [facility] Start: 08-05-2022 End: 08-06-2022 Emergency department patient visit Lyndon Dalal Facility:[facility] Start: 08-05-2022 End: 08-05-2022 ambulatory Lyndon Dalal Other [facility] Other Start: 08-05-2022 Office outpatient visit 40 minutes Lyndon Dalal [facility] Procedures Date Procedure Procedure Detail Performing Clinician [...] Routine [facility] [address] [place] [address] Dami Canseco DO [address] [place] [address] [facility] Start: 09-10-2024 End: 09-10-2024 Patient encounter procedure 09/10/2024 8:40 AM EST Routine [facility] [address] [place] [id number] Dami Canseco, DO [address] [place], [place] [id number] [facility] Start: 09-03-2024 End: 09-03-2025 Strep B DNA probe, amplification Strep B DNA probe, amplification Lab Routine 36 weeks gestation of Third trimester Expected: 09/03/2024 (Approximate), Expires: 09/03/2025 [facility] Work Phone: Comment on above: Expected: 09/03/2024 (Approximate), Expires: 09/03/2025 Start: 09-03-2024 End: 09-03-2024 Patient encounter procedure 09/03/2024 8:40 AM EST Routine [facility] [address] [place] [id number] Dami Canseco, DO [address] [place] [address] [facility] Start: 08-27-2024 End: 08-27-2024 Patient encounter procedure 08/27/2024 8:40 AM EDT Routine [facility] [address] [place] [id number] Dami Canseco, DO [address] [place] [address] [facility] Start: 08-14-2024 End: 08-14-2024 Patient encounter procedure [facility] Comment on above: Arrived Start: 08-06-2024 End: 08-06-2024 Professional / ancillary services management 08/06/2024 8:00 AM EDT Ancillary Procedure [facility] [address] [place] [id number] [facility] Start: 07-31-2024 End: 07-31-2024 Patient encounter procedure 07/31/2024 8:50 AM EDT Routine [facility] [address] [place] [address] Dami Canseco DO [address] [facility] [place] [address] Arrived [facility] Comment on above: Arrived Start: 07-01-2024 Influenza vaccination Influenza Vacc ine (#1) [facility] Start: 08-08-2023 End: 10-08-2023 Thyrotropin [Units/volume] in Serum or Plasma TSH BLD Lab Routine Vikki's thyroiditis Expected: 08/08/2023, Expires: 10/08/[address] [facility] Work Phone: Comment on above: Expected: 08/08/2023 , Expires: 10/08/2023 Start: 08-08-2023 End: 10-08-2023 Thyroxine (T4) free [Mass/volume] in Serum or Plasma T4 FREE/FREE THYROX Lab Routine Vikki's thyroiditis Expected: 08/08/2023, Expires: 10/08/[address] [facility] Work Phone: Comment on above: Expected: 08/08/2023 , Expires: 10/08/2023 Start: 07-07-2023 Urine microalbumin profile [facility] Start: 07-01-2023 Covid-19 Vaccine ( season) Covid-19 Vaccine () [facility] Start: 07-01-2023 Influenza vaccination Influenza Vacc ine (#1) [facility] Start: 03-31-2023 End: 05-31-2023 Thyroglobulin Ab [Units/volume] in Serum or Plasma THYROGLOBULIN AB Lab Routine Vikki's thyroiditis Expected: 03/31/2023, Expires: 05/31/[address] [facility] Work Phone: Comment on above: Expected: 03/31/2023 , Expires: 05/31/2023 Start: 03-31-2023 End: 05-31-2023 THYROID PEROXIDASE ANTIBODY BLOOD THYROID PEROXIDASE ANTIBODY BLOOD Lab Routine Vikki's thyroiditis Expected: 03/31/2023, Expires: 05/31/[address] [facility] Work Phone: Comment on above: Expected: 03/31/2023 , Expires: 05/31/2023 Start: 03-31-2023 End: 05-31-2023 Thyrotropin [Units/volume] in Serum or Plasma TSH BLD Lab Routine Vikki's thyroiditis Expected: 03/31/2023, Expires: 05/31/[address] [facility] Work Phone: Comment on above: Expected: 03/31/2023 , Expires: 05/31/2023 Start: 03-31-2023 End: 05-31-2023 Thyroxine (T4) free [Mass/volume] in Serum or Plasma T4 FREE/FREE THYROX Lab Routine Vikki's thyroiditis Expected: 03/31/2023, Expires: 05/31/[address] [facility] Work Phone: Comment on above: Expected: 03/31/2023 , Expires: 05/31/2023 Start: 03-31-2023 End: 05-31-2023 Triiodothyronine (T3) Free [Mass/volume] in Serum or Plasma T3 FREE BLD Lab Routine Vikki's thyroiditis Expected: 03/31/2023, Expires: 05/31/[address] [facility] Work Phone: Comment on above: Expected: 03/31/2023 , Expires: 05/31/2023 Start: 10-31-2022 DEPRESSION ASSESSMENT DEPRESSION ASS ESSMENT [facility] Start: 2021 PAP TESTING PAP TESTING [facility] Start: 02-02-2021 COVID-19 VACCINE (3 - Booster for Pfizer series) COVID-19 VACCINE (3 - Booster for Pfizer series) [facility] Start: 2018 CHLAMYDIA SCREENING (18-24) CHLAMYDIA SCREENING (18-24) [facility] Start: 2018 GC (GONORRHEA) SCREE MICHELLE (18-24) GC (GONORRHEA) SCREENING (18-24) [facility] Start: 2018 HEPATITIS C SCREENING HEPATITIS C SC REENING [facility] Start: 2018 HIV SCREENING HIV SCREENING [facility] Start: 2016 Meningococcal B Vacc ine: Consider Based On Risk (2 of 2 - Risk Bexsero 2-dose series) Meningococcal B Vaccine: Consider Based On Risk (2 of 2 - Risk Bexsero 2-dose series) [facility] Start: 2016 MENINGOCOCCAL B: Con buyer tobacco head based on risk (2 of 2 - Risk Bexsero 2-dose series) MENINGOCOCCAL B: Consider based on risk (2 of 2 - Risk Bexsero 2-dose series) [facility] Start: 2014 PEDS TO ADULT TRANSI TION ANNUAL ASSESSMENT PEDS TO ADULT TRANSITION ANNUAL ASSESSMENT [facility] Start: 2012 PEDS TO ADULT TRANSI TION INITIAL DISCUSSION PEDS TO ADULT TRANSITION INITIAL DISCUSSION [facility] [place] [facility] Immunizations Immunization Date Immunization Notes Care Provider [facility] 07-19-2022 influenza, injectabl e, quadrivalent, contains preservative Lyndon Easterwood Other [employer] [facility] [employer] Other 07-19-2022 influenza virus vaccine, unspecified formulation Martina Rodriguez MD, PhD Work Phone: [facility] 12-08-2020 Do not use COVID-19 Pfizer 2 dose Lyndon Easterwood Other [employer] Other 11-17-2020 Do not use COVID-19 Pfizer 2 dose Lyndon Easterwood Other [employer] Other 07-31-2020 influenza, injectabl e, quadrivalent, contains preservative Lyndon Easterwood Other [employer] Other 10-18-2016 influenza, injectabl e, quadrivalent, contains preservative Martina Rodriguez MD, PhD Work Phone: [facility] 08-04-2015 influenza, injectabl e, quadrivalent, contains preservative Martina Rodriguez MD, PhD Work Phone: [facility] 04-23-2014 human papilloma viru s vaccine, quadrivalent Martina Rodriguez MD, PhD Work Phone: [facility] 09-29-2013 human papilloma viru s vaccine, quadrivalent Martina Rodriguez MD, PhD Work Phone: [facility] 07-07-2013 human papilloma viru s vaccine, quadrivalent Martina Rodriguez MD, PhD Work Phone: [facility] 07-07-2013 meningococcal polysaccharide (groups A, C, Y and W-135) diphtheria toxoid conjugate vaccine (MCV4P) Martina Rodriguez MD, PhD Work Phone: [facility] Work Phone: 07-07-2013 tetanus toxoid, redu ollie diphtheria toxoid, and acellular pertussis vaccine, adsorbed Martina Rodriguez MD, PhD Work Phone: [facility] 08-04-2009 influenza virus vaccine, unspecified formulation Martina Rodriguez MD, PhD Work Phone: [facility] 07-05-2008 hepatitis A vaccine, unspecified formulation Martina Rodriguez MD, PhD Work Phone: [facility] 09-09-2007 influenza virus vaccine, unspecified formulation Martina Rodriguez MD, PhD Work Phone: [facility] Work Phone: 06-19-2007 hepatitis A vaccine, unspecified formulation Martina Rodriguez MD, PhD Work Phone: [facility] 06-19-2007 varicella virus vaccine Parth Rodriguez MD, PhD Work Phone: [facility] 09-14-2006 influenza virus vaccine, unspecified formulation Martina Rodriguez MD, PhD Work Phone: [facility] 05-13-2006 diphtheria, tetanus toxoids and acellular pertussis vaccine Martina Rodriguez MD, PhD Work Phone: [facility] Work Phone: 05-13-2006 measles, mumps and rubella virus vaccine Martina Rodriguez MD, PhD Work Phone: [facility] Work Phone: 05-13-2006 poliovirus vaccine, inactivated Martina Rodriguez MD, PhD Work Phone: [facility] Work Phone: 05-13-2006 varicella virus vaccine Parth Rodriguez MD, PhD Work Phone: [facility] Work Phone: 07-26-2005 influenza virus vaccine, unspecified formulation Martina Rodriguez MD, PhD Work Phone: [facility] Work Phone: 07-30-2004 influenza virus vaccine, unspecified formulation Martina Rodriguez MD, PhD Work Phone: [facility] Work Phone: 06-30-2002 diphtheria, tetanus toxoids and acellular pertussis vaccine Martina Rodriguez MD, PhD Work Phone: [facility] Work Phone: 06-30-2002 poliovirus vaccine, inactivated Martina Rodriguez MD, PhD Work Phone: [facility] Work Phone: 04-04-2002 haemophilus influenz ae type b vaccine, HbOC conjugate Martina Rodriguez MD, PhD Work Phone: [facility] Work Phone: 04-04-2002 measles, mumps and rubella virus vaccine Martina Rodriguez MD, PhD Work Phone: [facility] Work Phone: 12-16-2001 hepatitis B vaccine, pediatric or pediatric/adolescent dosage Martina Rodriguez MD, PhD Work Phone: [facility] Work Phone: 12-16-2001 pneumococcal conjuga te vaccine, 7 valent Martina Rodriguez MD, PhD Work Phone: [facility] Work Phone: 09-30-2001 pneumococcal conjuga te vaccine, 7 valent Martina Rodriguez MD, PhD Work Phone: [facility] Work Phone: 06-24-2001 diphtheria, tetanus toxoids and acellular pertussis vaccine Martina Rdoriguez MD, PhD Work Phone: [facility] Work Phone: 06-24-2001 haemophilus influenz ae type b vaccine, HbOC conjugate Martina Rodriguez MD, PhD Work Phone: [facility] Work Phone: 06-24-2001 pneumococcal conjuga te vaccine, 7 valent Martina Rodriguez MD, PhD Work Phone: [facility] Work Phone: 04-12-2001 diphtheria, tetanus toxoids and acellular pertussis vaccine Martina Rodriguez MD, PhD Work Phone: [facility] Work Phone: 04-12-2001 haemophilus influenz ae type b vaccine, HbOC conjugate Martina Rodriguez MD, PhD Work Phone: [facility] Work Phone: 04-12-2001 poliovirus vaccine, inactivated Martina Rodriguez MD, PhD Work Phone: [facility] Work Phone: 02-03-2001 diphtheria, tetanus toxoids and acellular pertussis vaccine Martina Rodriguez MD, PhD Work Phone: [facility] Work Phone: 02-03-2001 haemophilus influenz ae type b vaccine, HbOC conjugate Martina Rodriguez MD, PhD Work Phone: [facility] Work Phone: 02-03-2001 poliovirus vaccine, inactivated Martina Rodriguez MD, PhD Work Phone: [facility] Work Phone: 2000 hepatitis B vaccine, pediatric or pediatric/adolescent dosage Martina Rodriguez MD, PhD Work Phone: [facility] Work Phone: 2000 hepatitis B vaccine, pediatric or pediatric/adolescent dosage Martina Rodriguez MD, PhD Work Phone: [facility] Work Phone: Payers Date Payer Category Payer Private Health Insurance [id number] 2024 Unknown [id number] 2023 Unknown [id number] 2022 Private Health Insurance [id number] 2022 Self-pay 2020 Private Health Insurance [id number] 2020 Private Health Insurance [id number]. [id number] 2000 Unknown [id number] 2.16.840.1.068823.3.579.2.727 2000 Unknown [id number] 2.16.840.1.991827.3.579.2.727 2000 Unknown [id number] 2.16.840.1.043670.3.579.2.727 2000 Unknown [id number] 2.16.840.1.410598.3.579.2.727 2000 Unknown [id number] 2.16.840.1.961079.3.579.2.727 2000 Unknown [id number] 2.16.840.1.282921.3.579.2.727 2000 Unknown [id number] 2.16.840.1.802884.3.579.2.727 2000 Unknown [id number] 2.16.840.1.791370.3.579.2.727 2000 Unknown [id number] 2.16.840.1.964290.3.579.2.727 2000 Unknown [id number] 2.16.840.1.860565.3.579.2.727 2000 Unknown [id number] 2.16.840.1.185392.3.579.2.727 2000 Unknown [id number] 2.16.840.1.455650.3.579.2.1286 2000 Unknown [id number] 2.16.840.1.295412.3.579.2.1286 2000 Unknown [id number] 2.16.840.1.135477.3.579.2.1286 2000 Unknown [id number] 2.16.840.1.544651.3.579.2.727 2000 Unknown [id number] 2.16.840.1.781545.3.579.2.7 2000 Unknown [id number] 2.16840.1.744601.3.579.2.1258 2000 Unknown [id number] 2.16.840.1.605695.3.579.2.9 2000 Unknown [id number] 2.16.840.1.682080.3.579.2.1258 2000 Unknown [id number] 2.16.840.1.196711.3.579.2.9 2000 Unknown [id number] 2.16840.1.971370.3.579.2.1258 2000 Unknown [id number] 2.16.840.1.389437.3.579.2.9 2000 Unknown [id number] 2.16.840.1.652982.3.579.2.1258 2000 Unknown [id number] 2.16.840.1.023537.3.579.2.9 2000 Unknown [id number] 2.16.840.1.532878.3.579.2.1258 2000 Unknown [id number] 2.16.840.1.192007.3.579.2.1259 2000 Unknown [id number] 2.16.840.1.221716.3.579.2.1259 2000 Unknown [id number] 2.16.840.1.447143.3.579.2.1259 2000 Unknown [id number] 2.16.840.1.704655.3.579.2.1259 Private Health Insurance [facility] [id number] Unknown [id number] 2.16.840.1.074406.3.579.2.531 Unknown FORMERLY [facility] Employees [id number] Unknown [id number] 2.16.840.1.625229.3.579.2.531 Social History Date Type Detail Facility Start: 03-08-2023 End: 07-05-2024 Sex Assigned At [facility] [employer] Other Start: 09-27-2014 End: 07-05-2024 Tobacco smoking status NHIS Never smoked tobacco [facility] History of tobacco use Passive smoker [facility] Start: 03-08-2023 Alcohol intake Not Asked [facility] Start: 2000 Sex Assigned At Not on file [facility] Start: 2000 Sex Assigned At Female F [facility] Start: 03-08-2023 End: 07-05-2024 History of Social function [facility] Start: 07-05-2024 Tobacco use and exposure Smokeless tobacco non-user [facility] Start: 07-19-2024 End: 08-27-2024 Alcoholic [...] 4 mg, Oral, Every 6 hours PRN Obmjxjmu-Wnu-Zg-FA ( 1 + IRON PO) ALLERGIES Allergies [...] nursing note reviewed. Exam conducted with a dehairer present. Vitals: There is no height or [...] Dami Canseco DO documented in this encounter [facility] 08-27-2024 History of Presen t illness Narrative [...] 4 mg, Oral, Every 6 hours PRN Vwprsjeg-Cfv-Bz-FA ( 1 + IRON PO) ALLERGIES Allergies [...] Vikki's disease (CMS/HCC) Hypertension (CMS/HCC) Gestational Hypothyroidism ([facility]) 12/2020 Urinary tract infection As a teen [...] nursing note reviewed. Exam conducted with a dehairer present. Vitals: There is no height or [...] Dami Canseco DO documented in this encounter [facility] 08-14-2024 History of Presen t illness Narrative [...] 4 mg, Oral, Every 6 hours PRN Yqnkoghs-Fyj-Gd-FA ( 1 + IRON PO) ALLERGIES Allergies [...] nursing note reviewed. Exam conducted with a dehairer present. Vitals: There is no height or [...] Dami Canseco DO documented in this encounter [facility] 07-31-2024 History of Presen t illness Narrative [...] 4 mg, Oral, Every 6 hours PRN Xasnyene-Nqm-Sn-FA ( 1 + IRON PO) ALLERGIES Allergies [...] Dami Canseco DO documented in this encounter [facility] 09-15-2023 Evaluation note Encounter Date Diagnosis Assessment [...] office today for physical therapy to [facility] through [facility]. Discussed continuation of uzyz-aur-oihamuy medications as needed. Take muscle relaxer as [...] office today for physical therapy to [facility] through [facility]. Discussed continuation of ipgp-anu-ptwtatz medications as needed. Take muscle relaxer as [...] that were not corrected during review process. [employer] Other 09-12-2023 Evaluation note* Encounter Date Diagnosis [...] that were not corrected during review process. [employer] Other 07-26-2023 Evaluation note* Encounter Date Diagnosis [...] that were not corrected during review process. [employer] Other 06-18-2023 NoteEchocardiology Procedure Exam Date/Time Accession # Ordering ECG Stress Exercise 04/15/2023 08:43 EDT [id number] Samuel VELAZQUEZ, Benjamin Lopez CPT code 04446 Reason for Exam (ECG Stress Exercise) I95.1;Dizziness [...] Benjamin Baker MD Transcribed by: angela Technologist: [facility]06-16-2023 Note Echocardiology Procedure Exam Date/Time Accession # Ordering Echo Transthoracic 04/15/2023 09:42 EDT [id number] Benjamin Baker MD Complete CPT code 20047 32995 Reason for Exam (Echo Transthoracic Complete) I95.9;Hypotension Report [facility] [address] [place] [address] Adult Echocardiogram Report Name: EMMY DALE Study Date: 04/15/2023 09:02 AM BP: 105/71 mmHg Patient Location: [facility] HR: 75 : 2000 Gender: Female Height: 63 in Age: 22 yrs Ethnicity: [facility] Weight: 178 lb Reason For Study: Hypotension BSA: 1.8 m2 History: No cardiac history per patient Ordering Physician: Samuel^Benjamin^John Referring Physician: Benjamin Baker Performed By: Jonelle Alvarez [facility] Interpretation Summary Ejection Fraction = [...] MD Transcribed by: YOVANI Technologist: [facility]05-09-2023 Note HNO ID: [id number] Author: Martina Rodriguez MD, PhD Service: ? [...] in blood . was at [facility] when baby thought to be related to [...] Plan: Will monitor thyroid (more content not included)...[facility] 03-08-2023 History of Present illness Narrative* [...] in blood . was at [facility] when baby thought to be related to [...] Martina [facility] MD, PhD [facility]* Encounter Date Diagnosis Assessment Notes [...] I would recommend referral to a different zig zag spring machine operator. Patient does have the name of an zig zag spring machine operator that she would like referred to. We will put that referral in today. Dr. Roger Kim - [facility] Endocrinology, [facility] February, Dizziness (ICD-10 - R42) [...] that were not corrected during review process. [employer] Other 10-06-2022 Evaluation note* Encounter Date Diagnosis [...] to ER, I highly recommend she call EQUITY SALES ASSISTANT the second she leaves our office to follow-up.She needs to let them know about her concerns.I explained to her that even though she may assume that her EQUITY SALES ASSISTANT will not listen her , I still want her to reach out to that office and explained to them her current concerns. She wants to know what the immediate treatment would be and work-up for spinal headache and possible leak however I cannot provide her with this information as I am not EQUITY SALES ASSISTANT. Jul, Hip pain (ICD-10 - M25.559) While [...] I did discuss with her concerns over plss-zul-ztmtody medications during breast-feeding. Discussed recommendations currently and please bring this up to EQUITY SALES ASSISTANT as well for further recommendations. Does not [...] I would like her to follow-up with EQUITY SALES ASSISTANT or go to ER regarding this dizziness and we can follow-up in office after. If nothing comes from an EQUITY SALES ASSISTANT/spinal headache/spinal leak standpoint, we can order CT [...] that were not corrected during review process. [employer] Other 11-10-2009 History of Past illness Narrative* Problem Noted Date Resolved Date Constipation 09/09/2009 08/28/2014 documented as of this encounter (statuses as of 03/09/2023) [facility] History of Past illness Narrative* Problem Noted Date Diagnosed Date Resolved Date Constipation 09/09/2009 08/28/2014 documented as of this encounter (statuses as of 08/09/2023) [facility] noteNo InformationNort Remicalm Other Evaluation note* Diagnosis Vikki's thyroiditis- Primary Chronic lymphocytic thyroiditis documented in this encounter [facility] noteNo assessment information availableK[facility] Work Phone: Evaluation note* Diagnosis Vikki's thyroiditis- Primary Chronic lymphocytic thyroiditis documented in this encounter [facility] note* Diagnosis 31 weeks gestation of Third trimester state, incidental documented in this encounter [facility] HealthcareEvaluation note* Diagnosis 33 weeks gestation of Third trimester state, incidental documented in this encounter [facility] HealthcareEvaluation note* Diagnosis Third trimester state, incidental 35 weeks gestation of documented in this encounter [facility] HealthcareEvaluation note* Diagnosis 36 weeks gestation of Third trimester state, incidental documented in this encounter [facility] Narrative - Reported* Type Description Date Medical History Asthma Medical History Vasovagal syndrome- childhood (r esolved) Medical History Exercise-induced asthma Medical History Pityriasis rosea Medical History Tachycardia Medical History Vikki's thyroiditis Medical History Pre-eclampsia Surgical History [place] teeth extract 2016 Surgical History Vaginal childbirth 03/2022 Hospitalization History See surgical hx [employer] Other Hisfrla general Narrative - Reported* Type Description Date Medical History Exercise-induced asthma Medical History Pityriasis rosea Medical History Tachycardia Medical History Vikki's thyroiditis Medical History Asthma Medical History Pre-eclampsia Medical History Hypotension Surgical History [place] teeth extract 2016 Surgical History Vaginal childbirth 03/2022 Hospitalization History See surgical hx [employer] Other Hisjxpp general Narrative - Reported* Type Description Date Medical History Exercise-induced asthma Medical History Pityriasis rosea Medical History Tachycardia Medical History Vikki's thyroiditis Medical History Asthma Medical History Pre-eclampsia Medical History Hypotension Medical History GERD (gastroesophageal reflux di sease) Surgical History [place] teeth extract 2016 Surgical History Vaginal childbirth 03/2022 Surgical History EGD/colonoscopy 2011 Hospitalization History See surgical hx [employer] Other Hisknng general Narrative - Reported* Type Description Date Medical History Exercise-induced asthma Medical History Pityriasis rosea Medical History Tachycardia Medical History Vikki's thyroiditis Medical History Asthma Medical History Pre-eclampsia Medical History Hypotension Medical History GERD (gastroesophageal reflux di sease) Medical History Thyromegaly Surgical History [place] teeth extract 2017 Surgical History Vaginal childbirth 03/2022 Surgical History EGD/colonoscopy 2012 Hospitalization History See surgical hx [employer] Other History general Narrative - Reported* Type Description Date Medical History Exercise-induced asthma Medical History Pityriasis rosea Medical History Tachycardia Medical History Vikki's thyroiditis Medical History Asthma Medical History Pre-eclampsia Medical History Hypotension Medical History GERD (gastroesophageal reflux di sease) Medical History Thyromegaly Medical History Other idiopathic scoliosis, thor acic region Surgical History [place] teeth extract 2016 Surgical History Vaginal childbirth 03/2022 Surgical History EGD/colonoscopy 2012 Hospitalization History See surgical hx [employer] Other Summary Purpose Family History No Family [...] gastriti s with hemorrhage (K29.01) Referral Organization [facility] Family Ava Rivera Referring Provider First Name Lyndon Referring Provider Last Name [facility] Referring Provider Specialty Nurse Pract itioner Referred Organization [facility] Gastroenterolo gy Referred Provider Patricio Urena Referred Address [address],[address] Referred Provider Specialty Gastroentero logy Referral Priority Routine General Notes Misti Vivas 023 10:08:56 AM >Received today. [facility] request us to fill out their form and fax to them. They will review the referral and call patient to schedule them. Referral was fax. Misti 07/12/2023 01:31:38 PM >Per telephone encounter, patient wants to try [facility]. Sent P2P Reason *03/08 Dr. Hawa Kim - [facility]ocr[facility]ology, [facility]; [employer]- please send this note with 2 previous notes Diagnosis 1 Vikki's thyroidi tis (E06.3) Referral Organization [facility] Referring Provider First Name Lyndon Referring Provider Last Name [facility] Referring Provider Specialty Nurse Pract itdrainr Referred Organization [facility] Referred Address [address] [place], [place],[address] Referred Provider Specialty Endocrinolog y Referral Priority Routine General Notes Misti Vivas 023 01:21:05 PM >Received today and referral was fax with the [facility] Form. They will review and call patient to schedule Reason *03/08 Dizzines s- TERRENCE; Please send this note with 2 previous notes Diagnosis 1 Dizziness (R42) Referral Organization [facility] Referring Provider First Name Lyndon Referring Provider Last Name [facility] Referring Provider Specialty Nurse Pract itteor Referred Organization [facility] Referred Provider Jose Dominguez Referred Address [address] [place], [place],[address] Referred Provider Specialty Neurology Referral Priority Routine [...] section and content) DATE CREATED AUTHOR 08/06/2022 [facility] DATE CREATED AUTHOR AUTHOR'S ORGANIZ ATION 08/20/[address] [facility] DATE CREATED AUTHOR AUTHOR'S ORGANIZ ATION 04/06/2024 [facility] DATE CREATED AUTHOR AUTHOR'S ORGANIZ ATION 05/03/2024 [facility] DATE CREATED AUTHOR AUTHOR'S ORGANIZ ATION 05/18/2024 [facility] DATE CREATED AUTHOR AUTHOR'S ORGANIZ ATION 06/14/2024 [facility] DATE CREATED AUTHOR AUTHOR'S ORGANIZ ATION 06/26/2024 [facility] DATE CREATED AUTHOR AUTHOR'S ORGANIZ ATION 07/07/2024 [facility] DATE CREATED AUTHOR AUTHOR'S ORGANIZ ATION 07/24/2024 [facility] DATE CREATED AUTHOR AUTHOR'S ORGANIZ ATION 07/29/2024 [facility] DATE CREATED AUTHOR AUTHOR'S ORGANIZ ATION 08/21/2024 [facility] DATE CREATED AUTHOR AUTHOR'S ORGANIZ ATION 09/11/2024 [facility] EPIC REASON FOR VISIT [...] or prosecute any alcohol or drug abuse patient.[facility] the event this information is protected by the Federal Confidentiality of Alcohol and Drug Abuse Patient Records regulations: The Federal rules restrict any use of the information to criminally investigate or prosecute any alcohol or drug abuse patient.[facility] Care Teams (unrecognized sec tion and content) World Travel Counselor Relationship Specialty Start Date End Date Lyndon Dalal CNP [address] [employer] [facility] [address] [place] [address] PCP - General Family Medicine 03/08/23 Lyndon Dalal CNP [address] [address] Referring Family Medicine 03/04/23 Team Status: Active Member Role Status Dates Lyndon Dalal APRN Primary Care Provider Active Team Status: Inactive Member Role Status Dates Lyndon Dalal APRN Primary Care Provider, Attend ing Provider Active [employer] Counselor Relationship Specialty Start Date End Date Lyndon Dalal CNP [address] [address] PCP - General Family Medicine 03/08/23 Lyndon Dalal CNP [address] [address] Referring Family Medicine 03/04/23 World Travel Counselor Relationship Specialty Start Date End Date Ge Cloud MD [address] [phone] PCP - General Family Medicine 01/25/24 World Travel Counselor Relationship Specialty Start Date End Date Ge Cloud MD [address] [phone] PCP - General Family Medicine 01/25/24 World Travel Counselor Relationship Specialty Start Date End Date Ge Cloud MD [address] [phone] PCP - General Family Medicine 01/25/24 World Travel Counselor Relationship Specialty Start Date End Date Ge Cloud MD [address] [phone] PCP - General Family Medicine 01/25/24 World Travel Counselor Relationship Specialty Start Date End Date Ge Cloud MD [address] [id number] PCP - General Family Medicine 01/25/24 Goals [...] BE BASED ON THE PRIMARY CLINICAL RECORDS. [employer] provides no warranty or guarantee of the accuracy or completeness of information in this document.
[2024-09-13 17:05] LABS: Hematocrit 36.8 % (36.0-48.0); Hemoglobin 12.7 g/dL (12.0-16.0); Mean Corpuscular HGB Conc 34.5 g/dL (29.9-35.2); Mean Corpuscular Hemoglobin 30.4 pg (26.7-34.0); Mean Platelet Volume 10.6 fL (9.5-13.5); Platelet Count 246 10^3/uL (150-450); Red Blood Count 4.18 10^6/uL (4.20-5.40); Red Cell Distribution Width 13.3 % (11.0-15.0); White Blood Count 9.4 10^3/uL (4.0-11.0)
[2024-09-13 17:30] LABS: Amphetamine Screen Urine NEGATIVE (NEGATIVE); Benzodiazepines Screen Urine NEGATIVE (NEGATIVE); Cannabinoid Screen Urine NEGATIVE (NEGATIVE); Cocaine Screen Urine NEGATIVE (NEGATIVE); Methamphetamines Screen Urine NEGATIVE (NEGATIVE); Opiate Screen Urine NEGATIVE (NEGATIVE); Phencyclidine Screen Urine NEGATIVE (NEGATIVE)
[2024-09-13 17:31] LABS: Barbiturates Screen Urine NEGATIVE (NEGATIVE); Buprenorphine Screen Urine NEGATIVE (NEGATIVE); Methadone Screen Urine NEGATIVE (NEGATIVE); Oxycodone Screen Urine NEGATIVE (NEGATIVE); Tricyclic Antidepressant Urine NEGATIVE (NEGATIVE)
[2024-09-13] MEDS: AMPICILLIN SODIUM 2,000 MG in 0.9 % SODIUM CHLORIDE 100 ML 200 MG IV (17:59)
[2024-09-13] MEDS: 0.9 % SODIUM CHLORIDE 1,000 ML 125 ML IV (17:59)
[2024-09-13] MEDS: OXYTOCIN/0.9 % SODIUM CHLORIDE 10 UNITS/500 ML PLAST..BAG 6 UNIT IV (17:59)
[2024-09-13] MEDS: AMPICILLIN SODIUM 1,000 MG in 0.9 % SODIUM CHLORIDE 50 ML 100 MG IV (22:39)
[2024-09-13] MEDS: 0.9 % SODIUM CHLORIDE 1,000 ML 999 ML IV (23:19)
[2024-09-13] MEDS: ROPIVACAINE HCL/PF 400 MG/200 ML PREMIX 10 MG EPIDURAL (23:26)
[2024-09-14] VITALS (71 sets, daily range): BP systolic 76–140; BP diastolic 36–87; PULSE 62–218; TEMP 36.3–37.1
[2024-09-14] MEDS: AMPICILLIN SODIUM 1,000 MG in 0.9 % SODIUM CHLORIDE 50 ML 100 MG IV ×4 (02:28→14:08)
[2024-09-14] MEDS: ONDANSETRON PF 4 MG/2 ML VIAL IV (02:29)
[2024-09-14] MEDS: 0.9 % SODIUM CHLORIDE 1,000 ML 125 ML IV ×2 (03:00→12:36)
[2024-09-14] MEDS: OXYTOCIN/0.9 % SODIUM CHLORIDE 10 UNITS/500 ML PLAST..BAG 60 UNIT IV (06:56)
[2024-09-14] MEDS: OXYTOCIN/0.9 % SODIUM CHLORIDE 20 UNITS/1,000 ML PLAST..BAG 125 UNIT IV (15:06)
--- NOTE | 2024-09-14 15:13 | PM.OBPRCVD ---
Procedure Intrapartal events: None Induction method: per pitocin protocol Delivery augmentation: rupture of membranes and pitocin Delivery monitor: external FHT and external uterine Route of delivery: Episiotomy Description: none L&D Laceration Description: none Estimated blood loss (mL): 200 Anesthesia type: Epidural Disposition: floor Delivery date: 09/14/24 Gender: male presentation: vertex Placental delivery description: Spontaneous cord description: 3 Vessels
[2024-09-14] MEDS: IBUPROFEN 600 MG TABLET PO ×2 (16:15→22:32)
[2024-09-15 00:05] VITALS: TEMP 36.6
[2024-09-15] MEDS: IBUPROFEN 600 MG TABLET PO ×2 (06:06→12:23)
[2024-09-15 06:59] LABS: Basophils Absolute Auto 0.1 10^3/uL (0.0-0.1); Basophils Percent Auto 0.5 % (0.2-2.0); Eosinophils Absolute Auto 0.2 10^3/uL (0.0-0.7); Eosinophils Percent Auto 1.5 % (0.9-7.0); Hematocrit 34.8 % (36.0-48.0); Hemoglobin 11.8 g/dL (12.0-16.0); Immature Granulocytes Abs Auto 0.03 10^3/uL (0.00-0.03); Immature Granulocytes Pct Auto 0.3 % (0.0-0.5); Lymphocytes Absolute Auto 1.9 10^3/uL (1.2-3.8); Lymphocytes Percent Auto 19.7 % (20.5-60.0); Mean Corpuscular HGB Conc 33.9 g/dL (29.9-35.2); Mean Corpuscular Hemoglobin 30.3 pg (26.7-34.0); Mean Corpuscular Volume 89.2 fL (81.0-99.0); Mean Platelet Volume 10.4 fL (9.5-13.5); Monocytes Absolute Auto 0.7 10^3/uL (0.3-0.8); Monocytes Percent Auto 7.4 % (1.7-12.0); Neutrophils Absolute Auto 6.8 10^3/uL (1.4-6.5); Neutrophils Percent Auto 70.6 % (43.0-75.0); Platelet Count 186 10^3/uL (150-450); Red Cell Distribution Width 13.4 % (11.0-15.0); White Blood Count 9.7 10^3/uL (4.0-11.0)
[2024-09-15 08:10] VITALS: TEMP 36.8
[2024-09-15 08:11] VITALS: BP 121/63; PULSE 77
[2024-09-15] MEDS: LEVOTHYROXINE SODIUM 25 MCG TABLET PO (09:33)
[2024-09-15] MEDS: DOCUSATE SODIUM 100 MG CAPSULE PO (09:33)
--- NOTE | 2024-09-15 10:06 | P.OBPN_ITS ---
OB - PN: Subj Subjective Patient comments: no complaints and pain well controlled [place] status: doing well Exam Constitutional Vital Signs, click to edit/add: Last Vital Signs Temp 98.3 F 09/15/24 08:10 Pulse 77 09/15/24 08:11 Resp 16 09/15/24 08:10 BP 121/63 09/15/24 08:11 O2 Del Method Room Air 09/15/24 00:05 Documenting provider has reviewed patient's vital signs: yes Common normals: no apparent distress Respiratory Common normals: clear to auscultation bilaterally Cardio Common normals: regular rate and regular rhythm GI Common normals: Normal to inspection, nondistended, normoactive bowel sounds present Extremity Common normals: no calf tenderness Results Labs Labs: Short CBC 09/15/24 Range/Units 06:54 WBC 9.7 (4.0-11.0) 10^3/uL Hgb 11.8 L (12.0-16.0) g/dL Hct 34.8 L (36.0-48.0) % Plt Count 186 (150-450) 10^3/uL Urinary Catheter Management Urinary Catheter Management Urethral: Cath placed during this visit: yes Urethral indwelling: No Insertion date: 09/14/24 Insertion time: 00:15 OB - PN: A/P Plan - Vaginal Delivery day: 1 Plan: routine care, discharge home and follow up 6 weeks Time Spent with Patient Time: Total time spent is greater than 50% in coordination of care (as documented) at patient's floor/unit and/or counseling patient: Total time spent with greater than 50% in coordination of care (as documented) at patient's floor/unit and/or counseling patient: less than 15 minutes
[2024-09-15] MEDS: FLU VAC QS 2024(6MS UP)CEL/PF 60 MCG/0.5 ML SYRINGE IM (16:37)
[2024-09-15] MEDS: ADACEL DIPH,PERTUSS(ACELL),TET VAC/PF 0.5 ML ADULT SYRINGE IM (16:39)
== END 2024-09-15 18:00 | disposition home or self-care (01) | DRG 807 ==
PROVIDERS: Admitting Provider Obstetrics & Gynecology; PCP Family Medicine; Visit Provider Obstetrics & Gynecology
DX: O99.284 Endocrine, nutritional and metabolic diseases complicating childbirth (principal); Z37.0 Single live birth; Z3A.37 37 weeks gestation of pregnancy; O99.824 Streptococcus B carrier state complicating childbirth; E03.9 Hypothyroidism, unspecified
CPT/HCPCS: 36415; 51702; 59050; 59410; 80307; 85025; 85027; 86850; 86900; 86901; 90674; 90715; J0290; J2405; J2795

== ENCOUNTER 2025-04-17 21:05 | Outpatient (REF) | payer OTHER, SELFPAY ==
--- OUTSIDE RECORDS SUMMARY | 2025-04-17 16:00 | XMS_ITS | Encounter Summary ---
Author Organization [facility] Address [address] [facility] [place] [address] Care Team Providers Care Scarrer Name Role Phone Ge Cloud MD Primary Care Provider [phone] Reason for Visit * Reason Comments Gynecologic Exam Encounter Details Date Type Department Care Team (Late Contact Info) Description 04/17/2025 4:00 PM EDT Office Visit [facility] [address] [place] [address] Dami Canseco, DO [address] [facility] [address] [place], [place] [id number] Well woman exam with routine gynecological exam Social History Tobacco Use Types Packs/Day Years Used Date Smoking Tobacco: Never Smokeless Tobacco: Never Alcohol Use Standard Drinks/Week Comments Not Currently 0 (1 standard drink = 0.6 oz pur e alcohol) Comments No Sex and Gender Information Value Date Recorded Sex Assigned at Not on file Legal Sex Female 7:31 PM EDT Gender Identity Not on file Sexual Orientation Not on file documented as of this encounter Last Filed Vital Signs Vital Sign Reading Time Taken Comments Blood Pressure 118/74 04/17/2025 4:14 PM EDT Pulse - - Temperature - - Respiratory Rate - - Oxygen Saturation - - Inhaled Oxygen Concentration - - Weight 82.6 kg (182 lb) 04/17/2025 4:14 PM EDT Height - - Body Mass Index - - documented in this encounter Plan of Treatment Upcoming Encounters Date Type Department Care Team (Late Contact Info) Description 05/07/2026 4:00 PM EDT Office Visit [facility] [address] [facility] [place] [id number] Dami Canseco, [address] [facility] [place] [address] Scheduled Orders Name Type Priority Associated Diagnoses Orde r Schedule Pap Smear Pathology and Cytology Routine Well woman exam with routine gynecological exam Ordered: 04/17/2025 documented as of this encounter Visit Diagnoses Diagnosis Well woman exam with routine gynecological exam Routine gynecological examination documented in this encounter Care Teams Scarrer Relationship Specialty Start Date End Date Ge Cloud MD PCP - General Family Medicine 01/25/24 documented as of this encounter
--- OUTSIDE RECORDS SUMMARY | 2025-04-17 21:09 | XMS_ITS | Encounter Summary ---
Author Organization [facility] Address [address] [place] [address] Care Team Providers Care Building Attendant Name Role Phone Ge Cloud MD Primary Care Provider [phone] Encounter Details Date Type Department Care Team (Late st Contact Info) Description 02/24/2024 Clinisync Result Encounter [facility] External Department Unsolicited Dami Canseco, DO [address] [place] [address] Social History Tobacco Use Types Packs/Day Years Used Date Smoking Tobacco: Never Assessed Comments Yes Sex and Gender Information Value Date Recorded Sex Assigned at Not on file Legal Sex Female 7:31 PM EDT Gender Identity Not on file Sexual Orientation Not on file documented as of this encounter Plan of Treatment Upcoming Encounters Date Type Department Care Team (Late st Contact Info) Description 05/07/2026 4:00 PM EDT Office Visit [facility] OB [address] [place] [address] Dami Canseco DO [address] [place], [place] [id number] documented as of this encounter Procedures Procedure Name Priority Date/Time Associated Diagnosis Comments US OB TRANSVAGINAL 02/24/2024 12 :08 PM EDT documented in this encounter Results * US OB TRANSVAGINAL (02/24/2024 12:08 PM EDT) Anatomical Region Laterality Modality Other 02/24/2024 12:0 8 PM EDT Narrative 02/24/2024 12:10 PM EDT [address] [address] Ultrasound Report Signed Patient: EMMY QUINTANILLA MR#: [id number] : 2000 Acct:[id number] Age/Sex: 23 / F ADM Date: 02/24/24 Loc: [facility] Attending Dr: Dami Canseco D.O. Ordering Physician: Dami Canseco D.O. Date of Service: 02/24/24 Procedure(s): US OB transvaginal Accession Number(s): [id number] cc: Dami Canseco D.O.; GE CLOUD [place] [id number] Patient Name: EMMY QUINTANILLA MRN: [id number] date: 2000 Sex: F Assigned Patient Location: [facility] Current Patient Location: [facility] Accession/Order Number: [id number] Exam Date: 02/24/2024 09:38 Report Date: 02/24/2024 12:08 At the request of: DAMI CANSECO Procedure: US OB transvaginal EXAMINATION: US OB transvaginal HISTORY: MISSED MENSES COMPARISON: No relevant comparison available. FINDINGS: Transvaginal images Gestational sac: 2.7 cm, 7 weeks 4 days CRL: 1.82 cm, 8 weeks 2 days Yolk sac: 3.5 mm Heart rate: 181 bpm Cervix: Closed, 4.1 cm The uterus is normal, anteverted, anteflexed The right ovary is not visualized Left ovary is normal measuring 3.1 x 1.5 x 2.8 cm Clinical age: 9 weeks 0 days Clinical [facility]: 09/28/2024 Ultrasound age: 8 weeks 2 days Ultrasound [facility]: 10/03/2024 US/US OB transvaginal IMPRESSION: Viable mcguire intrauterine gestation measuring 8 weeks 2 days Electronically authenticated by: CHRISTINE WALKER Date: 02/24/2024 12:08 Dictated By: Christine Walker M.D. Signed By: 02/24/24 1210 DD/ 1208 TD/TT: Battery Charger: Procedure Note Radiology, Radiologist, - 02/24/2024 [place] [address] Ultrasound Report Signed Patient: EMMY QUINTANILLAMR#: [id number] : 2000Acct:[id number] Age/Sex: 23 / FADM Date: 02/24/24 Loc: [facility] Attending Dr: Dami Canseco D.O. Ordering Physician: Dami Canseco D.O. Date of Service: 02/24/24 Procedure(s): US OB transvaginal Accession Number(s): [id number] cc: Dami Canseco D.O.; GE CLOUD [place] [address] Patient Name: EMMY QUINTANILLA MRN: [id number] date: 2000 Sex: F Assigned Patient Location: [facility] Current Patient Location: [facility] Accession/Order Number: [id number] Exam Date: 02/24/2024 09:38 Report Date: 02/24/2024 12:08 At the request of: DAMI CANSECO Procedure: US OB transvaginal EXAMINATION: US OB transvaginal HISTORY: MISSED MENSES COMPARISON: No relevant comparison available. FINDINGS: Transvaginal images Gestational sac: 2.7 cm, 7 weeks 4 days CRL: 1.82 cm, 8 weeks 2 days Yolk sac: 3.5 mm Heart rate: 181 bpm Cervix: Closed, 4.1 cm The uterus is normal, anteverted, anteflexed The right ovary is not visualized Left ovary is normal measuring 3.1 x 1.5 x 2.8 cm Clinical age: 9 weeks 0 days Clinical [facility]: 09/28/2024 Ultrasound age: 8 weeks 2 days Ultrasound [facility]: 10/03/2024 US/US OB transvaginal IMPRESSION: Viable mcguire intrauterine gestation measuring 8 weeks 2 days Electronically authenticated by: CHRISTINE WALKER Date: 02/24/2024 12:08 Dictated By: Christine Walker M.D. Signed By:02/24/24 1210 DD/ 1208 TD/TT: Battery Charger: us Dami Ajith DO [facility] Final Result documented in this encounter Visit Diagnoses Not on filedocumented in this encounter Care Teams Building Attendant Relationship Specialty Start Date End Date Ge Cloud MD PCP - General Family Medicine 01/25/24 documented as of this encounter
--- OUTSIDE RECORDS SUMMARY | 2025-04-17 21:09 | XMS_ITS | Encounter Summary ---
Author Organization [facility] Address [address] [facility] [place] [address] Care Team Providers Care Hardwood Flooring Specialist Name Role Phone Ge Cloud MD Primary Care Provider [phone] Encounter Details Date Type Department Care Team (Late st Contact Info) Description 05/02/2024 Abstract [facility] OB [address] [facility] [place] [address] Henna Vasquez LPN [address] [place] [address] Social History Tobacco Use Types Packs/Day Years [...] 05/07/2026 4:00 PM EDT Office Visit [facility] OB [address] [facility] [place] [address] Dami Canseco [address] [place] [address] documented as of this encounter Visit Diagnoses Not on filedocumented in this encounter Care Teams Hardwood Flooring Specialist Relationship Specialty Start Date End Date Ge Cloud MD PCP - General Family Medicine 01/25/24 documented as of this encounter
--- OUTSIDE RECORDS SUMMARY | 2025-04-17 21:09 | XMS_ITS | Encounter Summary ---
Author Organization [facility] Address [address] [facility] [place] [address] Care Team Providers Care Forestry Faculty Member Name Role Phone Ge Cloud MD Primary Care Provider [phone] Encounter Details Date Type Department Care Team (Latest Contact Info) Description 04/16/2025 Travel Social History Tobacco Use Types Packs/Day Years [...] 05/07/2026 4:00 PM EDT Office Visit [facility] OB [address] [place] [phone] Dami Canseco, DO [address] [place] [address] documented as of this encounter Visit Diagnoses Not on filedocumented in this encounter Care Teams Forestry Faculty Member Relationship Specialty Start Date End Date Ge Cloud MD PCP - General Family Medicine 01/25/24 documented as of this encounter
--- OUTSIDE RECORDS SUMMARY | 2025-04-17 21:09 | XMS_ITS | Patient Health Record ---
Author Organization [facility] es Address [address] [place] [address] Care Team Providers Care Rail Car Painter/Sandblaster Name Role Phone Meena Cunninghamh Primary Care Provider [phone] Allergies Allergen (clinical drug ingredient) Drug/Non Drug Allergy documented on EMR Reaction Allergy Type Onset Date Status Substance with sulfonamide structure and antibacterial mechanism of action (substance) Sulfa Antibiotics hives Drug Allergy Active Reason For Referral No Information Medications Medication SIG (Take, Route, Fr equency, Duration) Notes Start Date End Date Status busPIRone HCl 15 MG 1 tablet Orally Twic e a day for 30 days Active Aspirin 81 81 MG 1 tablet Orally Once a day Not-Taking Synthroid 25 MCG 1 tablet Orally Once a day Active 28-0.8 MG 1 tablet Orally Once a day Not-Taking Probiotic 250 MG 1 capsule Orally Twice a day Not-Taking Social History Tobacco Use: Social History Observation Description Date Details (start date - stop date) Never Smoker NA - NA Tobacco Screen: Question Answer Notes Are you a: never smoker Alcohol Screening: Question Answer Notes Did you have a drink containing alcohol in the p ast year? No Points 0 Interpretation Negative Depression Screening (PHQ-9): Question Answer Notes Little interest or pleasure in doing things More than half the days Feeling down, depressed, or hopeless Several day s Trouble falling or staying asleep, or sleeping t oo much Not at all Feeling tired or having little energy Several da ys Poor appetite or overeating Not at all Feeling bad about yourself-o r that you are a failure or have let yourself or your family down Several days Trouble concentrating on thi ngs, such as reading the newspaper or watching television Nearly every day Moving or speaking so slowly that other people could have noticed. Or the opposite being so fidgety or restless that you have been moving around a lot more than usual Not at all Thoughts that you would be b joesph off , or of hurting yourself in some way Not at all Total Score 8 Intepretation Mild Depression Problems Problem Type SNOMED Code ICD Code Onset Dates Problem Status W/U Status Risk Notes Problem 41667477 Anxiety (F41.9) Active confirmed Problem Depression, unspecified depression type (F32.9) Active confirmed Plan Of Treatment No Information Insurance Providers Payer Name Payer Address Payer Phone Subscriber Number Group Number Insured Name Patient Relationship to Insured Coverage Start Date Coverage End Date [facility] [address] MANDA QUICK [phone] [id number] EMMY DALE Self - patient is the insured 3 [employer] [address] [place] [phone] [facility], Employee 2 2 Medical (General) History Medical History History ICD Code Asthma as a child Migraines Gerd Tachycardia Vikki Disease Surgical History Surgery Date(Month/Year) [place] Teeth Removed Urethral Dilation Hospitalization History Reason Date(Month/Year) Child
--- OUTSIDE RECORDS SUMMARY | 2025-04-17 21:09 | XMS_ITS | Clinical Summary ---
Author Organization [facility] Address [address] [place] [address] Care Team Providers Care Electric Refrigerator Preparer Name Role Phone Ge Cloud Primary Care Provider [phone] Allergies Active Allergy Reactions Criticality Noted Date Comments Sulfa (Sulfonamide Antibiotics) Hives,Rash Low 07/22/2015 Other Reaction(s): Unknown Other Reaction(s): Rash Other Reaction(s): hives Medications aspirin 81 mg EC tablet Take 81 mg by mouth in the morning. Active DOCOSAHEXAENOIC ACID ORAL Take 1 tablet by mouth in the morning. Active levothyroxine (Synthroid, Levoxyl) 50 mcg tablet Take 50 mcg by mouth before breakfast. 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 Hypertension 03/05/2025 JEFF (amniotic fluid index) borderline low 2023 History of pre-eclampsia in prior , currently 05/14/2024 Placental abnormality in second trimester 2023 Hypothyroidism affecting in second tri mester 05/13/2024 Episodic tension-type headache, not intractable 08/07/2015 BCP ( control pills) initiation 09/27/2014 Dysmenorrhea 09/27/2014 GERD (gastroesophageal reflux disease) 4 Headache 09/27/2014 Sexually active at young age 1109/27/2014 Wart 09/27/2014 Wears glasses 08/28/2014 Encounters Date Type Department Care Team Description 04/03/2025 Telephone [facility] [address] [place] [address] Christine Hare MA 03/15/2025 Telephone [facility] Cardiology [address] [place] [address] Mirna Borrero MD 03/08/2025 2:20 PM EDT Office Visit 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; Class 1 obesity due to excess calories without serious comorbidity with body mass index (BMI) of 30.0 to 30.9 in adult from Last 3 Months Immunizations Immunization Administration Dates Next Due DTaP, Unspecified 05/13/2006, 2,06/24/2001,04/12,02/03/2001 HPV, Quadrivalent 04/23/2014,09/29/2013,07/07/20 13 Hep A, Unspecified 07/05/2008,06/19/2007 Hep A, ped/adol, 2 dose 07/07/2013 Hep B, Adolescent or Pediatric 12/16/2001,2000,2000 HiB, unspecified 04/04/2002, 1,04/12/2001,02/03 IPV 05/13/2006, 2,04/12/2001,02/03 Influenza Whole 10/16/2012,08/23/2011 Influenza, Injectable, MDCK, preservative free 09/15/2024 Influenza, Unspecified 08/04/2009,09/09/2007, Influenza, injectable, MDCK, preservative free, quadrivalent 10/10/2018 Influenza, injectable, quadrivalent 07/19/2022,1 ,10/18/2016 Influenza, injectable, quadr ivalent, preservative free 08/14/2021 Influenza, seasonal, injectable 01/21/20 18,08/04/2015,08/23/2014,07/26,07/30/2004 Influenza, seasonal, injecta ble, preservative free, 6 moonths & older 09/05/2010 MMR 05/13/2006,04/04/2002 Meningococcal B, Omv 02/24/2018,01/20/2018 Meningococcal MCV4P 01/20/2018,07/07/2013 Novel [id number], preservative-free 10/01/2009,08/25/2009 Pneumococcal Conjugate PCV 7 12/16/2001,09/30/20,06/24/2001 Polio, Unspecified 06/30/2002,04/12/2001, 001 Tdap 09/15/2024,07/07/2013 Varicella 06/19/2007,05/13/2006 Family History Medical History Relation Name Comments Heart failure Father Hyperlipidemia Father Hypertension Father Rheum arthritis Father Diabetes Maternal Grandfather Heart failure Maternal Grandfather Hypertension Maternal Grandfather Cancer Maternal Grandmother Stroke Maternal Grandmother Thyroid cancer Maternal Grandmother Hyperlipidemia Mother Asthma Mother's Brother Thyroid disease Mother's Sister Diabetes Paternal Grandmother Thyroid disease Sister Relation Name Status Comments Brother Alive Father Maternal Grandfather Maternal Grandmother Mother Alive Mother's Brother Mother's Sister Paternal Grandmother Sister Alive Social History Tobacco Use Types Packs/Day Years Used Date Smoking Tobacco: Never Smokeless Tobacco: Never Tobacco Cessation:Counseling Given: Not Answered Alcohol Use Standard Drinks/Week Comments Not Currently 0 (1 standard drink = 0.6 oz pur e alcohol) Comments No Sex and Gender Information Value Date Recorded Sex Assigned at Female 03/04/2025 5:39 PM EDT Legal Sex Female 2:30 PM EDT Gender Identity Female 03/04/2025 5:39 PM EDT Sexual Orientation Heterosexual or Straight 02/2025 5:39 PM EDT Last Filed Vital Signs Vital Sign Reading Time Taken Comments Blood Pressure 102/62 03/08/2025 2:35 PM EDT Pulse 83 03/08/2025 2:35 PM EDT Temperature - - Respiratory Rate - - Oxygen Saturation 98% 03/08/2025 2:35 PM EDT Inhaled Oxygen Concentration - - Weight 81.6 kg (180 lb) 03/08/2025 2:35 PM EDT Height 162.6 cm (5' 4 ) 03/08/2025 2:35 PM EDT Body Mass Index 30.9 03/08/2025 2:35 PM EDT Plan of Treatment Upcoming Encounters Date Type Department Care Team (Late st Contact Info) Description 05/10/2025 2:00 PM EDT Office Visit [facility] [address] [place] [address] Mirna Borrero MD [address] [place] [address] Health Maintenance Due Date Last Done Comments Depression Screening 2012 Pap Smear 2021 COVID-19 Vaccine ( season) 2024 12/08/2020, 11/17/2020 Adult Tetanus 09/15/2034 09/15/2024, 07/07/2013 Zoster Vaccines (1 of 2) 2050 06/19/2007, 04/30 Pneumococcal Vaccine: Pediatrics (0 to 5 Years) and At-Risk Patients (6 to 64 Years) Aged Out 12/16/2001, 09/30/2001, 06/24/2001 No longer eligible based on patient's age to complete this topic HIB Vaccines Completed 04/04/2002, 06/01, 04/12/2001, Additional history exists IPV Vaccines Completed 05/13/2006, 06/02, 06/30/2002, Additional history exists Varicella Vaccines Completed 06/19/2007, 05/13/2006 HPV Vaccines Completed 04/23/2014, 09/02, 07/07/2013 Meningococcal Vaccine Completed 01/20/2018, 013 Meningococcal B Vaccine Completed 02/24/2018, 01/20 Influenza Vaccine Completed 09/15/2024, , 08/14/2021, Additional history exists Rotavirus Vaccines Aged Out No longer eligible based on patient's age to complete this topic Procedures Procedure Name Priority Date/Time Associated Diagnosis Comments ECG 12-LEAD Routine 03/08/2025 3:10 PM EDT Palpitations Near syncope ECG 12 LEAD UNIT PERFORMED Routine 03/08/2025 2:24 PM EDT Palpitations Near syncope from Last 3 Months Results * ECG 12 lead (03/08/2025 3:10 PM EDT) Narrative Mirna Borrero MD - 03/08/2025 3:10 PM EDT normal sinus rhythm with sinus arrhythmia, heart rate 84 bpm, minor nonspecific T wave changes Mirna Borrero MD ECG ORDERABLES Final Result * ECG 12 lead unit performed (03/08/2025 2:24 PM EDT) Mirna Borrero MD ECG ORDERABLES Final Result from Last 3 Months Insurance [facility] Care Teams Electric Refrigerator Preparer Relationship Specialty Start Date End Date Ge Cloud [address] [place] [address] [address] [place] [address] PCP - General 03/04/25
--- OUTSIDE RECORDS SUMMARY | 2025-04-17 21:09 | XMS_ITS | Encounter Summary ---
Author Organization [facility] Address [address] [facility] [place] [address] Care Team Providers Care Metal Milling Machine Operator Name Role Phone Ge Cloud MD Primary Care Provider [phone] Encounter Details Date Type Department Care Team (Late Contact Info) Description 04/17/2025 Bamboo flowsheet [facility] OB [address] [place] [address] Dami Canseco DO [address] [place] [address] Social History Tobacco Use Types Packs/Day Years [...] 05/07/2026 4:00 PM EDT Office Visit [facility] OB [address] [place] [address] Dami Canseco, DO [address] [place], [place] [address]Gab[place], [facility] documented as of this encounter Visit Diagnoses Not on filedocumented in this encounter Care Teams Metal Milling Machine Operator Relationship Specialty Start Date End Date Ge Cloud MD PCP - General Family Medicine 01/25/24 documented as of this encounter
--- OUTSIDE RECORDS SUMMARY | 2025-04-17 21:09 | XMS_ITS | Encounter Summary ---
Author Organization [facility] Address [address] [place] [address] Care Team Providers Care Manifold Operator Name Role Phone Ge Cloud MD Primary Care Provider [phone] Encounter Details Date Type Department Care Team (Late st Contact Info) Description 08/27/2024 Clinisync Result Encounter [facility] External Department Unsolicited Ann Canseco, [address] [place] [address] Social History Tobacco Use Types Packs/Day Years Used Date Smoking Tobacco: Never Smokeless Tobacco: Never Alcohol Use Standard Drinks/Week Comments Not Currently 0 (1 standard drink = 0.6 oz pur e alcohol) Comments Yes Sex and Gender Information Value Date Recorded Sex Assigned at Not on file Legal Sex Female 7:31 PM EDT Gender Identity Not on file Sexual Orientation Not on file documented as of this encounter Plan of Treatment Upcoming Encounters Date Type Department Care Team (Late st Contact Info) Description 05/07/2026 4:00 PM EDT Office Visit [facility] OB [address] [place] [phone] Ann Canseco DO [facility] [place] [address] documented as of this encounter Procedures Procedure Name Priority Date/Time Associated Diagnosis Comments US OB GROWTH 08/27/2024 4:38 AM EDT documented in this encounter Results * US OB GROWTH (08/27/2024 4:38 AM EDT) Anatomical Region Laterality Modality Other 08/27/2024 4:38 AM EDT Narrative 08/27/2024 4:40 [place] [address] Ultrasound Report Signed Patient: EMMY QUINTANILLA MR#: [id number] : 2000 Acct:[id number] Age/Sex: 23 / F ADM Date: 08/25/24 Loc: US Attending Dr: Carmen Aguiar Ordering Physician: Ann Canseco D.O. Date of Service: 08/25/24 Procedure(s): US OB growth Accession Number(s): [id number] cc: Ann Canseco D.O.; GE CLOUD [place] [id number] Patient Name: EMMY QUINTANILLA MRN: [id number] date: 2000 Sex: F Assigned Patient Location: [facility] Current Patient Location: US Accession/Order Number: [id number] Exam Date: 08/25/2024 14:00 Report Date: 08/27/2024 04:38 At the request of: ANN CANSECO Procedure: US OB growth EXAMINATION: US OB growth HISTORY: low eduard, hypothyroidism, h/o preeclampsia COMPARISON: Ultrasound OB growth 08/04/2024 FINDINGS: Heart Rate: 127.36 bpm Amniotic Fluid Volume: 13.4 cm; normal range Number: 1 Position: CEPHALIC BIOMETRY: BPD: 8.57 cm; 34 weeks 4 days; 35 % HC: 31.44 cm; 35 weeks 2 days; 19.90 % AC: 29.56 cm; 33 weeks 4 days; 14.80 % FL: 6.29 cm; 32 weeks 4 days; 3 % EFW: 2213.39 g; 10.80 % FL/AC: 21.27 FL/BPD: 73.39 HC/AC: 1.06 GESTATIONAL AGE: Age by EDC: 35 weeks 1 day DUKE by EDC: 2024-09-28 Age by US: 34 weeks 0 days DUKE by US: 2024-10-06 US/US OB growth IMPRESSION: 1. Single live intrauterine with growth detailed above. 2. Femur length is < 3rd percentile. Electronically authenticated by: JOSE TALBOT Date: 08/27/2024 04:38 Dictated By: Jose Talbot M.D. Signed By: 08/27/24439 DD/ 7 TD/TT: Flight Instructor: Procedure Note Radiology, Radiologist, MD - 08/27/2024 [place] [address] Ultrasound Report Signed Patient: EMMY QUINTANILLAMR#: [id number] : 2000Acct:[id number] Age/Sex: 23 / FADM Date: 08/25/24 Loc: US Attending Dr: Carmen Aguiar Ordering Physician: Ann Canseco D.O. Date of Service: 08/25/24 Procedure(s): US OB growth Accession Number(s): [id number] cc: Ann Canseco D.O.; GE CLOUD [place] [id number] Patient Name: EMMY QUINTANILLA MRN: [id number] date: 2000 Sex: F Assigned Patient Location: [facility] Current Patient Location: US Accession/Order Number: [id number] Exam Date: 08/25/2024 14:00 Report Date: 08/27/2024 04:38 At the request of: ANN CANSECO Procedure: US OB growth EXAMINATION: US OB growth HISTORY: low eduard, hypothyroidism, h/o preeclampsia COMPARISON: Ultrasound OB growth 08/04/2024 FINDINGS: Heart Rate: 127.36 bpm Amniotic Fluid Volume: 13.4 cm; normal range Number: 1 Position: CEPHALIC BIOMETRY: BPD: 8.57 cm; 34 weeks 4 days; 35 % HC: 31.44 cm; 35 weeks 2 days; 19.90 % AC: 29.56 cm; 33 weeks 4 days; 14.80 % FL: 6.29 cm; 32 weeks 4 days; 3 % EFW: 2213.39 g; 10.80 % FL/AC: 21.27 FL/BPD: 73.39 HC/AC: 1.06 GESTATIONAL AGE: Age by EDC: 35 weeks 1 day DUKE by EDC: 2024-09-28 Age by US: 34 weeks 0 days DUKE by US: 2024-10-06 US/US OB growth IMPRESSION: 1. Single live intrauterine with growth detailed above. 2. Femur length is < 3rd percentile. Electronically authenticated by: JOSE TALBOT Date: 08/27/2024 04:38 Dictated By: Jose Talbot M.D. Signed By:08/27/24439 DD/ 7 TD/TT: Flight Instructor: us Ann Ajith DO [facility] Final Result documented in this encounter Visit Diagnoses Not on filedocumented in this encounter Care Teams Manifold Operator Relationship Specialty Start Date End Date Ge Cloud MD PCP - General Family Medicine 01/25/24 documented as of this encounter
--- OUTSIDE RECORDS SUMMARY | 2025-04-17 21:09 | XMS_ITS | Encounter Summary ---
Author Organization [facility] Address [address] [place] [address] Care Team Providers Care Medical Instructor Name Role Phone Ge Cloud MD Primary Care Provider [phone] Encounter Details Date Type Department Care Team (Late Contact Info) Description 09/10/2024 Clinisync Result Encounter [facility] External Department Unsolicited Dami Canseco, [facility] [address], [facility] Social History Tobacco Use Types Packs/Day Years [...] Visit [facility] B[facility] OB [address] [place] [phone] Dami Canseco DO [facility] [place] [address] documented as of this encounter Procedures Procedure Name Priority Date/Time Associated Diagnosis Comments US OB BPP W NON-STRESS 09/10/2024 7:58 AM EST documented in this encounter Results * US OB BPP W NON-STRESS (09/10/2024 7:58 AM EST) Anatomical Region Laterality Modality Other 09/10/2024 7:58 AM EST Narrative 09/10/2024 8:01 [place] [address] Ultrasound Report Signed Patient: EMMY QUINTANILLA MR#: [id number] : 2000 Acct:[id number] Age/Sex: 23 / F ADM Date: 09/08/24 Loc: US Attending Dr: Dami Canseco D.O. Ordering Physician: Dami Canseco D.O. Date of Service: 09/08/24 Procedure(s): US OB BPP w non-stress Accession Number(s): [id number] cc: Dami Canseco D.O.; GE CLOUD [place] [address] Patient Name: EMMY QUINTANILLA MRN: [id number] date: 2000 Sex: F Assigned Patient Location: [facility] Current Patient Location: Accession/Order Number: [id number] Exam Date: 09/08/2024 09:10 Report Date: 09/10/2024 07:58 At the request of: DAMI CANSECO Procedure: US OB BPP w non-stress EXAMINATION: US OB BPP w non-stress HISTORY: JEFF BORDERLINE LOW O28.8 COMPARISON: No relevant comparison available. TECHNIQUE: Ultrasound biophysical profile was performed in the radiology department. non-reactive stress testing was performed by nursing staff in the birthing center. FINDINGS: BREATHING MOVEMENTS: 2 GROSS BODY MOVEMENTS: 2 TONE: 2 QUALITATIVE AMNIOTIC FLUID VOLUME: 2 PRESENTATION: CEPHALIC HEART RATE: 133.00 bpm AMNIOTIC FLUID VOLUME: 15.7 cm GESTATIONAL AGE: 37 weeks 1 day US/US OB BPP w non-stress IMPRESSION: Total biophysical profile score: 8 Electronically authenticated by: CHRISTINE WALKER Date: 09/10/2024 07:58 Dictated By: Christine Walker M.D. Signed By: 09/10/24 0801 DD/ 0758 TD/TT: Digital Strategist: Procedure Note Radiology, Radiologist, - 09/10/2024 [place] [address] Ultrasound Report Signed Patient: EMMY QUINATNILLAMR#: [id number] : 2000Acct:[id number] Age/Sex: 23 / FADM Date: 09/08/24 Loc: US Attending Dr: Dami Canseco D.O. Ordering Physician: Dami Canseco D.O. Date of Service: 09/08/24 Procedure(s): US OB BPP w non-stress Accession Number(s): [id number] cc: Dami Canseco D.O.; GE CLOUD [place] [address] Patient Name: EMMY QUINTANILLA MRN: [id number] date: 2000 Sex: F Assigned Patient Location: [facility] Current Patient Location: Accession/Order Number: [id number] Exam Date: 09/08/2024 09:10 Report Date: 09/10/2024 07:58 At the request of: DAMI CANSECO Procedure: US OB BPP w non-stress EXAMINATION: US OB BPP w non-stress HISTORY: JEFF BORDERLINE LOW O28.8 COMPARISON: No relevant comparison available. TECHNIQUE: Ultrasound biophysical profile was performed in the radiology department. non-reactive stress testing was performed by nursingstaff in the birthing center. FINDINGS: BREATHING MOVEMENTS: 2 GROSS BODY MOVEMENTS: 2 TONE: 2 QUALITATIVE AMNIOTIC FLUID VOLUME: 2 PRESENTATION: CEPHALIC HEART RATE: 133.00 bpm AMNIOTIC FLUID VOLUME: 15.7 cm GESTATIONAL AGE: 37 weeks 1 day US/US OB BPP w non-stress IMPRESSION: Total biophysical profile score: 8 Electronically authenticated by: CHRSITINE WALKER Date: 09/10/2024 07:58 Dictated By: Christine Walker M.D. Signed By:09/10/24 0801 DD/ 0758 TD/TT: Digital Strategist: us Dami Canseco DO [facility] Final Result documented in this encounter Visit Diagnoses Not on filedocumented in this encounter Care Teams Medical Instructor Relationship Specialty Start Date End Date Ge Cloud MD PCP - General Family Medicine 01/25/24 documented as of this encounter
--- OUTSIDE RECORDS SUMMARY | 2025-04-17 21:09 | XMS_ITS | Encounter Summary ---
Author Organization [facility] Address [address] [place] [address] Care Team Providers Care Founding Partner Name Role Phone Bhavya Cloud MD Primary Care Provider [phone] Encounter Details Date Type Department Care Team (Late Contact Info) Description 09/02/2024 Clinisync Result Encounter [facility] External Department Unsolicited Dami Canseco, [facility] [address], [place] [id number] Social History Tobacco Use Types Packs/Day Years [...] Visit [facility] B[facility] OB [address] [place] [phone] Dami Canseco DO [facility] [place] [address] documented as of this encounter Procedures Procedure Name Priority Date/Time Associated Diagnosis Comments US OB BPP W NON-STRESS 09/02/2024 8:43 AM EST documented in this encounter Results * US OB BPP W NON-STRESS (09/02/2024 8:43 AM EST) Anatomical Region Laterality Modality Other 09/02/2024 8:43 AM EST Narrative 09/02/2024 8:45 [place] [address] Ultrasound Report Signed Patient: EMMY QUINTANILLA MR#: [id number] : 2000 Acct:[id number] Age/Sex: 23 / F ADM Date: 09/01/24 Loc: [facility] Attending Dr: Dami Canseco D.O. Ordering Physician: Dami Canseco D.O. Date of Service: 09/01/24 Procedure(s): US OB BPP w non-stress Accession Number(s): [id number] cc: Dami Canseco D.O.; BHAVYA CLOUD [place] [address] Patient Name: EMMY QUINTANILLA MRN: [id number] date: 2000 Sex: F Assigned Patient Location: [facility] Current Patient Location: Accession/Order Number: [id number] Exam Date: 09/01/2024 09:02 Report Date: 09/02/2024 08:43 At the request of: DAMI CANSECO Procedure: US OB BPP w non-stress EXAMINATION: US OB BPP w non-stress HISTORY:History of pre-eclampsia COMPARISON: Ultrasound OB biophysical 08/25/2024 TECHNIQUE: Ultrasound biophysical profile was performed in the radiology department. BREATHING MOVEMENTS: 2 GROSS BODY MOVEMENTS: 2 TONE: 2 QUALITATIVE AMNIOTIC FLUID VOLUME: 2 PRESENTATION: CEPHALIC HEART RATE: 131.71 bpm AMNIOTIC FLUID VOLUME: 14.15 cm GESTATIONAL AGE: 36 weeks 1 day US/US OB BPP w non-stress IMPRESSION: 1. Total biophysical profile score: 8 2. Possible nuchal cord. Follow-up recommended. Electronically authenticated by: JOSE TALBOT Date: 09/02/2024 08:43 Dictated By: Jose Talbot M.D. Signed By: 09/02/2445 DD/ 2 TD/TT: Aircraft Ordnance Systems Mechanic: Procedure Note Radiology, Radiologist, - 09/02/2024 [place] [address] Ultrasound Report Signed Patient: EMMY QUINTANILLAMR#: [id number] : 2000Acct:[id number] Age/Sex: 23 / FADM Date: 09/01/24 Loc: [facility] Attending Dr: Dami Canseco D.O. Ordering Physician: Dami Canseco D.O. Date of Service: 09/01/24 Procedure(s): US OB BPP w non-stress Accession Number(s): [id number] cc: Dami Canseco D.O.; BHAVYA CLOUD [place] [address] Patient Name: EMMY QUINTANILLA MRN: [id number] date: 2000 Sex: F Assigned Patient Location: [facility] Current Patient Location: Accession/Order Number: [id number] Exam Date: 09/01/2024 09:02 Report Date: 09/02/2024 08:43 At the request of: DAMI CANSECO Procedure: US OB BPP w non-stress EXAMINATION: US OB BPP w non-stress HISTORY:History of pre-eclampsia COMPARISON: Ultrasound OB biophysical 08/25/2024 TECHNIQUE: Ultrasound biophysical profile was performed in the radiology department. BREATHING MOVEMENTS: 2 GROSS BODY MOVEMENTS: 2 TONE: 2 QUALITATIVE AMNIOTIC FLUID VOLUME: 2 PRESENTATION: CEPHALIC HEART RATE: 131.71 bpm AMNIOTIC FLUID VOLUME: 14.15 cm GESTATIONAL AGE: 36 weeks 1 day US/US OB BPP w non-stress IMPRESSION: 1. Total biophysical profile score: 8 2. Possible nuchal cord. Follow-up recommended. Electronically authenticated by: JOSE TALBOT Date: 09/02/2024 08:43 Dictated By: Jose Talbot M.D. Signed By:09/02/24 0845 DD/ 0843 TD/TT: Aircraft Ordnance Systems Mechanic: us Dami Ajith DO [facility] Final Result documented in this encounter Visit Diagnoses Not on filedocumented in this encounter Care Teams Founding Partner Relationship Specialty Start Date End Date Bhavya Cloud MD PCP - General Family Medicine 01/25/24 documented as of this encounter
--- OUTSIDE RECORDS SUMMARY | 2025-04-17 21:09 | XMS_ITS | Encounter Summary ---
Author Organization [facility] Address [address] [facility] [place] [address] Care Team Providers Care Vp Transportation Name Role Phone Ge Cloud MD Primary Care Provider [phone] Encounter Details Date Type Department Care Team (Late st Contact Info) Description 09/12/2024 Abstract [facility] OB [address] [place] [address] Dami Canseco, DO [address], [place] [address] Social History Tobacco Use Types Packs/Day Years [...] 05/07/2026 4:00 PM EDT Office Visit [facility] OB [address] [place] [address] Dami Canseco, DO [facility] [address], [facility]11 documented as of this encounter Visit Diagnoses Not on filedocumented in this encounter Care Teams Vp Transportation Relationship Specialty Start Date End Date Ge Cloud MD PCP - General Family Medicine 01/25/24 documented as of this encounter
--- OUTSIDE RECORDS SUMMARY | 2025-04-17 21:09 | XMS_ITS | Encounter Summary ---
Author Organization [facility] Address [address] [facility] [place] [address] Care Team Providers Care Deposit Refund Clerk Name Role Phone Ge Cloud MD Primary Care Provider Encounter Details Date Type Department Care Team (Late st Contact Info) Description 01/25/2025 Abstract [facility] OB [address] [place] [address] Dami Canseco, DO [address], [place] [address] Social History Tobacco Use Types Packs/Day Years [...] 05/07/2026 4:00 PM EDT Office Visit [facility] OB [address] [place] [address] Dami Canseco, DO [address], [facility] documented as of this encounter Visit Diagnoses Not on filedocumented in this encounter Care Teams Deposit Refund Clerk Relationship Specialty Start Date End Date Ge Cloud MD PCP - General Family Medicine 01/25/24 documented as of this encounter
--- OUTSIDE RECORDS SUMMARY | 2025-04-17 21:09 | XMS_ITS | Encounter Summary ---
Author Organization [facility] Address [address] [place] [address] Care Team Providers Care Warehouse Engineer Name Role Phone Ge Cloud MD Primary Care Provider [phone] Encounter Details Date Type Department Care Team (Late st Contact Info) Description 04/18/2024 Orders Only [facility] OB [address] [facility] [place] [phone] Christine De León [place] [address] [facility] [place] [address] Social History Tobacco Use Types Packs/Day Years [...] 05/07/2026 4:00 PM EDT Office Visit [facility] OB [address] [place], [place] [address] [phone] Dami Canseco DO [address] [place], [place] [address] documented as of this encounter Procedures Procedure Name Priority Date/Time Associated Diagnosis Comments PAP SMEAR Routine 04/09/2024 12:00 AM EDT documented in this encounter Results * Pap Smear (04/09/2024 12:00 AM EDT) Swab Cervical swab / Unknown us Dami Ajith DO LAB CYTOLOGY ORDERABLES Final Re sult EXTERNAL LAB documented in this encounter Visit Diagnoses Not on filedocumented in this encounter Care Teams Warehouse Engineer Relationship Specialty Start Date End Date Ge Cloud MD PCP - General Family Medicine 01/25/24 documented as of this encounter
--- OUTSIDE RECORDS SUMMARY | 2025-04-17 21:09 | XMS_ITS | Patient Health Record ---
Author Organization [facility] Address [address] [place] [address] Care Team Providers Care Farmworker Name Role Phone Katlin LYNN, Dejah Primary Care Provider Chacha Holguin [phone] Allergies Allergen (clinical drug ingredient) Drug/Non Drug Allergy documented on EMR Reaction Allergy Type Onset Date Status Substance with sulfonamide structure and antibacterial mechanism of action (substance) Sulfa Antibiotics rash Drug Allergy Active Results Component Value Reference Range Notes STREPTOCOCCUS, GROUP A CULTU RE Reviewed date:03/16/2025 04:02:42 PM Interpretation:Negative Performing Lab:QPT, [facility] [address], [address] [place], [place] [id number] Charles Carias MD Notes/Report: 0 Received Date: [id number] STREPTOCOCCUS, GROUP A CULTURE SEE NOTE STREPTOCOCCUS, GROUP A CULTURE Micro Number: [id number] Test Status: Final Specimen Source: Throat Specimen Quality: Adequate Result: No group A Streptococcus isolated Rapid Strep Screen (IH) Reviewed date:03/14/2025 10:33:01 AM Interpretation:Negative Performing Lab: Notes/Report: Negative Negative negative Reason For Referral No Information Medications Medication SIG (Take, Route, Frequency, Duration) Notes Start Date End Date Status Synthroid 50 MCG 1 tablet in the morn ing on an empty stomach Orally Once a day Active Mirena (52 MG) 20 MCG/DAY as directed Intrauterine Active Social History Tobacco Use: Social History Observation Description Date Details (start date - stop date) Never Smoker NA - NA Tobacco Control (Standard) Question Answer Notes Tobacco use: Nonsmoker Problems Problem Type SNOMED Code ICD Code Onset Dates Problem Status W/U Status Risk Notes 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 Vital Signs Temperature 98.3 degrees Fahrenheit 03/14/2025 Respiratory Rate 16 /min 03/14/2025 Oximetry 98 03/14/2025 Blood pressure diastolic 70 mm Hg 03/14/2025 Height 65 in 03/14/2025 Blood pressure systolic 120 mm Hg 03/14/2025 Weight 181 lbs 03/14/2025 BMI 30.12 kg/m2 03/14/2025 Encounters Encounter Location Date Provider Diagnosis [address] [place] [address] [place] [address] 03/14/2025 Chacha Plummer Acute pharyngitis, unspecified etiology J02.9 ; Patient is a currently breast-feeding mother Z39.1 and Obesity (BMI 30.0-34.9) E66.811 Assessments Encounter Date Diagnosis (ICD Code) Assessment Notes Treatment Notes Treatment Clinical Notes Section Notes 03/14/2025 Acute pharyngitis, unspecified etiology (ICD-10 - J02.9) Sore Throat: Care Instructions material was published Follow up in the clinic or with PCP as needed Specimen will be sent to outside lab and patient will receive third constitution party bill from laboratory. Patient verbalized understanding and agrees to plan of care. [facility] will send out the strep culture. Results will be published on the patient portal. The rapid strep test was completed at this visit. Results available on the patient portal. Infection by bacteria or a virus causes most sore throats. Cigarette smoke, dry air, air pollution, allergies, and yelling can also cause a sore throat. Sore throats can be painful and annoying. Fortunately, most sore throats go away on their own. If you have a bacterial infection, your doctor may prescribe antibiotics. Follow-up care is a gu part of your treatment and safety. Be sure to make and go to all appointments, and call your doctor if you are having problems. It's also a good idea to know your test results and keep a list of the medicines you take. How can you care for yourself at home?If your doctor prescribed antibiotics, take them as directed. Do not stop taking them just because you feel better. You need to take the full course of antibiotics.Gargl e with warm salt water several times a day to help reduce swelling and relieve pain. Mix 1/2 teaspoon of salt in 1 cup of warm water.Take an rcjz-flc-masaadx pain medicine, such as acetaminophen (Tylenol), ibuprofen (Advil, Motrin), or naproxen (Aleve). Read and follow all instructions on the label.Be careful when taking lsde-qmt-hjoganm cold or flu medicines and Tylenol at the same time. Many of these medicines have acetaminophen, which is Tylenol. Read the labels to make sure that you are not taking more than the recommended dose. Too much acetaminophen (Tylenol) can be harmful.Drink plenty of fluids. Fluids may help soothe an irritated throat. Hot fluids, such as tea or soup, may help decrease throat pain.Use opeg-kan-tlxweru throat lozenges to soothe pain. Regular cough drops or hard candy may also help. These should not be given to young children because of the risk of choking.Do not smoke or allow others to smoke around you. If you need help quitting, talk to your doctor about stop-smoking programs and medicines. These can increase your chances of quitting for good.Use a vaporizer or humidifier to add moisture to your bedroom. Follow the directions for cleaning the machine.When should you call for help?Call your doctor now or seek immediate medical care if: You have trouble breathing.Your sore throat gets much worse on one side.You have new or worse trouble swallowing.You have a new or higher fever.Watch closely for changes in your health, and be sure to contact your doctor if you do not get better as expected. 03/14/2025 Patient is a currently breast-feeding mother (ICD-10 - Z39.1) May continue to breastfeed. Follow up in the clinic or with PCP as needed 03/14/2025 Obesity (BMI 30.0-34.9) (ICD-10 - E66.811) Learning About Healthy Weight material was published Continue healthy eating and exercise. May follow up with [employer] dietitians via a telehealth visit at [email or web address] to help with dietary changes to lower BMI. 03/14/2025 Other Visit summary given to and discussed with patient and/or parent who verbalizes understanding and agreement with plan of care. Thank you for your visit. Please look for the satisfaction survey that you will receive via email. We look forward to receiving your feedback regarding your experience at [facility]. Plan Of Treatment No Information Insurance Providers Payer Name Payer Address Payer Phone Subscriber Number Group Number Insured Name Patient Relationship to Insured Coverage Start Date Coverage End Date [facility] [address] [address] [place] [address] [id number] Alda Quintanilla Self - patient is the insured Medical (General) History Medical History History ICD Code Vikki's disease E06.3 Hospitalization History Reason Date(Month/Year) childbirth
--- OUTSIDE RECORDS SUMMARY | 2025-04-17 21:09 | XMS_ITS | Encounter Summary ---
Author Organization [facility] Address [address] [facility] [place] [address] Care Team Providers Care Fiber Machine Tender Name Role Phone Ge Cloud MD Primary Care Provider [phone] Encounter Details Date Type Department Care Team (Late st Contact Info) Description 11/28/2024 Abstract [facility] [address] [place] [address] Dami Canseco, DO [address], [place] [address] Social History Tobacco Use Types Packs/Day Years [...] 05/07/2026 4:00 PM EDT Office Visit [facility] [address] [place] [address] Dami Canseco, DO [address], [place] [id number] documented as of this encounter Visit Diagnoses Not on filedocumented in this encounter Care Teams Fiber Machine Tender Relationship Specialty Start Date End Date Ge Cloud MD PCP - General Family Medicine 01/25/24 documented as of this encounter
--- OUTSIDE RECORDS SUMMARY | 2025-04-17 21:09 | XMS_ITS | Encounter Summary ---
Author Organization [facility] Address [address] [facility] [place] [address] Care Team Providers Care Mammography Supervisor Name Role Phone Ge Cloud MD Primary Care Provider [phone] Encounter Details Date Type Department Care Team (Late st Contact Info) Description 07/24/2024 Abstract [facility] [address] [place] [address] Dami Canseco, DO [address], [place] [address] Social History Tobacco Use Types Packs/Day Years [...] 05/07/2026 4:00 PM EDT Office Visit [facility] [address] [place] [address] Dami Canseco, DO [facility] [address], [facility]11 documented as of this encounter Visit Diagnoses Not on filedocumented in this encounter Care Teams Mammography Supervisor Relationship Specialty Start Date End Date Ge Cloud MD PCP - General Family Medicine 01/25/24 documented as of this encounter
--- OUTSIDE RECORDS SUMMARY | 2025-04-17 21:09 | XMS_ITS | Encounter Summary ---
Author Organization [facility] Address [address] [facility] [place] [address] Care Team Providers Care Operations Developer Name Role Phone Ge Cloud MD Primary Care Provider [phone] Encounter Details Date Type Department Care Team (Late st Contact Info) Description 09/14/2024 Abstract [facility] [address] [place] [address] Dami Cansceo, DO [address], [place] [address] Social History Tobacco Use Types Packs/Day Years [...] 05/07/2026 4:00 PM EDT Office Visit [facility] [address] [place] [address] Dami Canseco, DO [facility] [address], [facility]11 documented as of this encounter Visit Diagnoses Not on filedocumented in this encounter Care Teams Operations Developer Relationship Specialty Start Date End Date Ge Cloud MD PCP - General Family Medicine 01/25/24 documented as of this encounter
--- OUTSIDE RECORDS SUMMARY | 2025-04-17 21:09 | XMS_ITS | Encounter Summary ---
[facility] Organization [facility] Address [id number] [address] [place] [address] Care Team Providers Care Alligator Hunter Name Role Phone Dejah Dalal Primary Care Provider Encounter Details Date Type Department Care Team (Late st Contact Info) Description 04/06/2024 Orders Only Maternal- Medicine at [facility] [address] [facility] [place] [address] Ref Prov, [place] [address] Social History Tobacco Use Types Packs/Day Years Used Date Smoking Tobacco: Never Assessed Comments Yes Sex and Gender Information Value Date Recorded Sex Assigned at Not on file Legal Sex Female 11:07 AM EDT Gender Identity Not on file Sexual Orientation Not on file documented as of this encounter Plan of Treatment Not on file documented as of this encounter Procedures Procedure Name Priority Date/Time Associated Diagnosis Comments FREE CELL DNA (NON-[place]) Routine 03/02/2024 1:56 PM EDT documented in this encounter Results * Free Cell DNA (03/02/2024 1:56 PM EDT) us Not In System Ref Prov LAB BLOOD ORDERABLES Dominga l Result MANUALLY TRANSCRIBED RESULTS documented in this encounter Visit Diagnoses Not on filedocumented in this encounter Care Teams Alligator Hunter Relationship Specialty Start Date End Date Dejah Dalal APRN-CNP [address], [facility] [address] [place] [address] PCP - General 05/12/24 documented as of this encounter
--- OUTSIDE RECORDS SUMMARY | 2025-04-17 21:09 | XMS_ITS | Encounter Summary ---
Author Organization [facility] Address [address] [place] [address] Care Team Providers Care Geothermal Heat Pump Machinist Name Role Phone Bhavya Cloud MD Primary Care Provider [phone] Encounter Details Date Type Department Care Team (Late st Contact Info) Description 08/20/2024 Clinisync Result Encounter [facility] External Department Unsolicited Carmen Alejo PA [address] [place], [facility]11 Social History Tobacco Use Types Packs/Day [...] EDT Office Visit [facility] [address] [facility] [place] [phone] Dami Canseco DO [address] [facility] [place] [address] documented as of this encounter Procedures Procedure Name Priority Date/Time Associated Diagnosis Comments US OB BPP W NON-STRESS 08/20/2024 7:32 AM EDT documented in this encounter Results * US OB BPP W NON-STRESS (08/20/2024 7:32 AM EDT) Anatomical Region Laterality Modality Other 08/20/2024 7:32 AM EDT Narrative 08/20/2024 7:35 [place] [address] Ultrasound Report Signed Patient: EMMY QUINTANILLA MR#: [id number] : 2000 Acct:[id number] Age/Sex: 23 / F ADM Date: 08/18/24 Loc: US Attending Dr: Carmen Alejo Ordering Physician: Carmen Alejo Date of Service: 08/18/24 Procedure(s): US OB BPP w non-stress Accession Number(s): [id number] cc: Carmen Alejo; BHAVYA CLOUD [place] [id number] Patient Name: EMMY QUINTANILLA MRN: [id number] date: 2000 Sex: F Assigned Patient Location: [facility] Current Patient Location: Accession/Order Number: [id number] Exam Date: 08/18/2024 14:04 Report Date: 08/20/2024 07:32 At the request of: CARMEN ALEJO Procedure: US OB BPP w non-stress EXAMINATION: US OB BPP w non-stress HISTORY: Amniotic fluid borderline low O28.8 COMPARISON: No relevant comparison available. TECHNIQUE: Ultrasound biophysical profile was performed in the radiology department. non-reactive stress testing was performed by nursing staff in the birthing center. FINDINGS: BREATHING MOVEMENTS: 2 GROSS BODY MOVEMENTS: 2 TONE: 2 QUALITATIVE AMNIOTIC FLUID VOLUME: 2 PRESENTATION: CEPHALIC HEART RATE: 135 bpm AMNIOTIC FLUID VOLUME: 16.3 cm GESTATIONAL AGE: 34 weeks 1 day US/US OB BPP w non-stress IMPRESSION: Total biophysical profile score: 8 Electronically authenticated by: CHRISTINE WALKER Date: 08/20/2024 07:32 Dictated By: Christine Walker M.D. Signed By: 08/20/2435 DD/ 1 TD/TT: Manager Facility: Procedure Note Radiology, Radiologist, - 08/20/2024 [place] [address] Ultrasound Report Signed Patient: EMMY QUINTANILLAMR#: [id number] : 2000Acct:[id number] Age/Sex: 23 / FADM Date: 08/18/24 Loc: US Attending Dr: Carmen Alejo Ordering Physician: Carmen Alejo Date of Service: 08/18/24 Procedure(s): US OB BPP w non-stress Accession Number(s): [id number] cc: Carmen Alejo; BHAVYA CLOUD [place] [address] Patient Name: EMMY QUINTANILLA MRN: [id number] date: 2000 Sex: F Assigned Patient Location: [facility] Current Patient Location: Accession/Order Number: [id number] Exam Date: 08/18/2024 14:04 Report Date: 08/20/2024 07:32 At the request of: CARMEN ALEJO Procedure: US OB BPP w non-stress EXAMINATION: US OB BPP w non-stress HISTORY: Amniotic fluid borderline low O28.8 COMPARISON: No relevant comparison available. TECHNIQUE: Ultrasound biophysical profile was performed in the radiology department. non-reactive stress testing was performed by nursingstaff in the birthing center. FINDINGS: BREATHING MOVEMENTS: 2 GROSS BODY MOVEMENTS: 2 TONE: 2 QUALITATIVE AMNIOTIC FLUID VOLUME: 2 PRESENTATION: CEPHALIC HEART RATE: 135 bpm AMNIOTIC FLUID VOLUME: 16.3 cm GESTATIONAL AGE: 34 weeks 1 day US/US OB BPP w non-stress IMPRESSION: Total biophysical profile score: 8 Electronically authenticated by: CHRISTINE WALKER Date: 08/20/2024 07:32 Dictated By: Christine Walker M.D. Signed By:08/20/2435 DD/ 1 TD/TT: Manager Facility: us Carmen [facility] Final Result documented in this encounter Visit Diagnoses Not on filedocumented in this encounter Care Teams Geothermal Heat Pump Machinist Relationship Specialty Start Date End Date Bhavya Cloud MD PCP - General Family Medicine 01/25/24 documented as of this encounter
--- OUTSIDE RECORDS SUMMARY | 2025-04-17 21:09 | XMS_ITS | Encounter Summary ---
Author Organization [facility] Address [address] [place] [address] Care Team Providers Care Wine Specialist Name Role Phone Bhavya Cloud MD Primary Care Provider [phone] Encounter Details Date Type Department Care Team (Late st Contact Info) Description 08/11/2024 Clinisync Result Encounter [facility] External Department Unsolicited Carmen Alejo PA [address] [place], [facility]11 Social History Tobacco Use Types Packs/Day [...] EDT Office Visit [facility] [address] [place] [address] Dami Canseco DO [address] [facility] [place] [address] documented as of this encounter Procedures Procedure Name Priority Date/Time Associated Diagnosis Comments US OB BPP W NON-STRESS 08/11/2024 4:53 PM EDT documented in this encounter Results * US OB BPP W NON-STRESS (08/11/2024 4:53 PM EDT) Anatomical Region Laterality Modality Other 08/11/2024 4:53 PM EDT Narrative 08/11/2024 4:55 [place] [address] Ultrasound Report Signed Patient: EMMY QUINTANILLA MR#: [id number] : 2000 Acct:[id number] Age/Sex: 23 / F ADM Date: 08/11/24 Loc: US Attending Dr: Carmen Alejo Ordering Physician: Carmen Alejo Date of Service: 08/11/24 Procedure(s): US OB BPP w non-stress Accession Number(s): [id number] cc: Carmen Alejo; BHAVYA CLOUD [place] [phone] Patient Name: EMMY QUINTANILLA MRN: [id number] date: 2000 Sex: F Assigned Patient Location: [facility] Current Patient Location: Accession/Order Number: [id number] Exam Date: 08/11/2024 13:59 Report Date: 08/11/2024 16:53 At the request of: CARMEN ALEJO Procedure: US OB BPP w non-stress US PELVIS: OB Greater than 14 weeks HISTORY: 23 year old female presents for US evaluation. TECHNIQUE: Ultrasound performed of the pelvis using static images with dempsey scale, M-mode and color doppler. This exam is performed in the emergency room setting to evaluate viability. As such, it is not protocoled to evaluate anatomy as that should be performed on an outpatient basis at the patient's PRODUCT MARKETING SPECIALIST office. COMPARISON: August 04, 2024 FINDINGS: Summary: Number of Fetuses: Singlefetus in cephalic position. Placenta: Anterior heart: 144 bpm. Cervix: Not well visualized due to shadowing from skull JEFF: Q1: 2.4 cm Q2: 2.1 cm Q3: 3.8 cm Q4: 3.6 cm Total JEFF: 11 cm. (Normal 8-18 cm)* Largest pocket: (less than 8 cm) BPP: movement: 2. tone: 2. fluid: 2. breathin. BPP: 8 out of 8. US/US OB BPP w non-stress IMPRESSION: 1. Viable Ge fetus IUP 2. BPP is 8/8 3. JEFF: 11.4 Electronically authenticated by: DAYNA COOK Date: 08/11/2024 16:53 Dictated By: Dayna Cook M.D. Signed By: 08/11/241654 DD/ 52 TD/TT: Helicopter Repairer: Procedure Note Radiology, Radiologist, - 08/11/2024 [place] [address] Ultrasound Report Signed Patient: EMMY QUINTANILLAMR#: [id number] : 2000Acct:[id number] Age/Sex: 23 / FADM Date: 08/11/24 Loc: US Attending Dr: Carmen Aleoj Ordering Physician: Carmen Alejo Date of Service: 08/11/24 Procedure(s): US OB BPP w non-stress Accession Number(s): [id number] cc: Carmen Alejo; BHAVYA CLOUD [place] [phone] Patient Name: EMMY QUINTANILLA MRN: [id number] date: 2000 Sex: F Assigned Patient Location: [facility] Current Patient Location: Accession/Order Number: [id number] Exam Date: 08/11/2024 13:59 Report Date: 08/11/2024 16:53 At the request of: CARMEN ALEJO Procedure: US OB BPP w non-stress US PELVIS: OB Greater than 14 weeks HISTORY: 23 year old female presents for US evaluation. TECHNIQUE: Ultrasound performed of the pelvis using static images with dempsey scale,M-mode and color doppler. This exam is performed in the emergency room setting to evaluate viability. As such, it is not protocoled to evaluate anatomy as that should be performed on an outpatient basis at the patient's PRODUCT MARKETING SPECIALIST office. COMPARISON: August 04, 2024 FINDINGS: Summary: Number of Fetuses: Singlefetus in cephalic position. Placenta: Anterior heart: 144 bpm. Cervix: Not well visualized due to shadowing from skull JEFF: Q1: 2.4 cm Q2: 2.1 cm Q3: 3.8 cm Q4: 3.6 cm Total JEFF: 11 cm. (Normal 8-18 cm)* Largest pocket: (less than 8 cm) BPP: movement: 2. tone: 2. fluid: 2. breathin. BPP: 8 out of 8. US/US OB BPP w non-stress IMPRESSION: 1. Viable Ge fetus IUP 2. BPP is 8/8 3. JEFF: 11.4 Electronically authenticated by: DAYNA COOK Date: 08/11/2024 16:53 Dictated By: Dayna Cook M.D. Signed By:08/11/241654 DD/ 52 TD/TT: Helicopter Repairer: Carmen [facility] Final Result documented in this encounter Visit Diagnoses Not on filedocumented in this encounter Care Teams Wine Specialist Relationship Specialty Start Date End Date Bhavya Cloud MD PCP - General Family Medicine 01/25/24 documented as of this encounter
--- OUTSIDE RECORDS SUMMARY | 2025-04-17 21:09 | XMS_ITS | Encounter Summary ---
Author Organization [facility] Address [address] [place] [address] Care Team Providers Care Melt House Centrifugal Operator Name Role Phone Bhavya Cloud MD Primary Care Provider [phone] Encounter Details Date Type Department Care Team (Late st Contact Info) Description 07/12/2024 Clinisync Result Encounter [facility] External Department Unsolicited Dami Canseco, [address], [place] [id number] Social History Tobacco Use Types Packs/Day Years [...] 05/07/2026 4:00 PM EDT Office Visit [facility] [address] [place] [address] Dami Canseco DO [facility] [place] [address] documented as of this encounter Procedures Procedure Name Priority Date/Time Associated Diagnosis Comments US AMNIOTIC FLUID VOLUME 07/12/2024 10:47 AM EDT documented in this encounter Results * US AMNIOTIC FLUID VOLUME (07/12/2024 10:47 AM EDT) Anatomical Region Laterality Modality Radiographic Vilma ging 07/12/2024 10:4 7 AM EDT Narrative 07/12/2024 10:49 [place] [address] Ultrasound Report Signed Patient: EMMY QUINTANILLA MR#: [id number] : 2000 Acct:[id number] Age/Sex: 23 / F ADM Date: 07/12/24 Loc: NOMS Attending Dr: Dami Canseco D.O. Ordering Physician: Dami Canseco D.O. Date of Service: 07/12/24 Procedure(s): US OB amniotic fluid vol Accession Number(s): [id number] cc: Dami Canseco D.O.; BHAVYA CLOUD [place] [address] Patient Name: EMMY QUINTANILLA MRN: [id number] date: 2000 Sex: F Assigned Patient Location: [facility] Current Patient Location: [facility] Accession/Order Number: [id number] Exam Date: 07/12/2024 08:32 Report Date: 07/12/2024 10:47 At the request of: DAMI CANSECO Procedure: US OB amniotic fluid vol EXAMINATION: US OB amniotic fluid vol HISTORY: BORDERLINE LOW AMNIOTIC FLUID LEVEL COMPARISON: No relevant comparison available. FINDINGS: position: Cephalic presentation, longitudinal lie Amniotic fluid volume: 12.6 cm, largest fluid pocket 4.9 cm Heart rate: 132 bpm Clinical age: 28 weeks 6 days Clinical DUKE: 09/28/2024 US/US OB amniotic fluid vol IMPRESSION: Normal amniotic fluid volume Electronically authenticated by: CHRISTINE WALKER Date: 07/12/2024 10:47 Dictated By: Christine Walker M.D. Signed By: 07/12/24 1049 DD/ 1047 TD/TT: Certified Adaptive Physical Educator: Procedure Note Radiology, Radiologist, - 07/12/2024 [place] [address] Ultrasound Report Signed Patient: EMMY QUINTANILLAMR#: [id number] : 2000Acct:[id number] Age/Sex: 23 / FADM Date: 07/12/24 Loc: NOMS Attending Dr: Dami Canseco D.O. Ordering Physician: Dami Canseco D.O. Date of Service: 07/12/24 Procedure(s): US OB amniotic fluid vol Accession Number(s): [id number] cc: Dami Canseco D.O.; BHAVYA CLOUD [place] [id number] Patient Name: EMMY QUINTANILLA MRN: [id number] date: 2000 Sex: F Assigned Patient Location: [facility] Current Patient Location: [facility] Accession/Order Number: [id number] Exam Date: 07/12/2024 08:32 Report Date: 07/12/2024 10:47 At the request of: DAMI CANSCEO Procedure: US OB amniotic fluid vol EXAMINATION: US OB amniotic fluid vol HISTORY: BORDERLINE LOW AMNIOTIC FLUID LEVEL COMPARISON: No relevant comparison available. FINDINGS: position: Cephalic presentation, longitudinal lie Amniotic fluid volume: 12.6 cm, largest fluid pocket 4.9 cm Heart rate: 132 bpm Clinical age: 28 weeks 6 days Clinical DUKE: 09/28/2024 US/US OB amniotic fluid vol IMPRESSION: Normal amniotic fluid volume Electronically authenticated by: CHRISTINE WALKER Date: 07/12/2024 10:47 Dictated By: Christine Walker M.D. Signed By:07/12/24 1049 DD/ 1047 TD/TT: Certified Adaptive Physical Educator: us Dami Canseco DO IMG XR PROCEDURES Final Result documented in this encounter Visit Diagnoses Not on filedocumented in this encounter Care Teams Melt House Centrifugal Operator Relationship Specialty Start Date End Date Bhavya Cloud MD [phone] (work) PCP - General Family Medicine 01/25/24 documented as of this encounter
--- OUTSIDE RECORDS SUMMARY | 2025-04-17 21:09 | XMS_ITS | Encounter Summary ---
Author Organization [facility] Address [address] [facility] [place] [address] Care Team Providers Care Slate Splitter Name Role Phone Ge Cloud MD Primary Care Provider [phone] Encounter Details Date Type Department Care Team (Late st Contact Info) Description 09/03/2024 Abstract [facility] [address] [place] [address] Dami Canseco, DO [address], [place] [address] Social History Tobacco Use Types Packs/Day Years [...] 05/07/2026 4:00 PM EDT Office Visit [facility] [address] [place] [address] Dami Canseco, DO [facility] [address], [facility]11 documented as of this encounter Visit Diagnoses Not on filedocumented in this encounter Care Teams Slate Splitter Relationship Specialty Start Date End Date Ge Cloud MD PCP - General Family Medicine 01/25/24 documented as of this encounter
--- OUTSIDE RECORDS SUMMARY | 2025-04-17 21:09 | XMS_ITS | Encounter Summary ---
Author Organization [facility] Address [address] [facility] [place] [address] Care Team Providers Care Cinder Pitman Name Role Phone Ge Cloud MD Primary Care Provider [phone] Encounter Details Date Type Department Care Team (Late st Contact Info) Description 11/23/2024 Abstract [facility] [address] [place] [address] Dami Canseco, DO [address], [place] [address] Social History Tobacco Use Types Packs/Day Years [...] 05/07/2026 4:00 PM EDT Office Visit [facility] [address] [place] [address] Dami Canseco, DO [address], [place] [id number] documented as of this encounter Visit Diagnoses Not on filedocumented in this encounter Care Teams Cinder Pitman Relationship Specialty Start Date End Date Ge Cloud MD PCP - General Family Medicine 01/25/24 documented as of this encounter
--- OUTSIDE RECORDS SUMMARY | 2025-04-17 21:09 | XMS_ITS | Clinical Summary ---
Author Organization [facility] Address [address] [place] [address] Care Team Providers Care Vendor Management Associate Name Role Phone Dejah Dalal CNP Unavailable Dejah Dalal CNP Primary Care Provider Allergies Active Allergy Reactions Criticality Noted Date Comments Sulfa (Sulfonamide Antibiotics) Rash 07/02 Medications levothyroxine (SYNTHROID) 50 mcg tablet TAKE 1 TABLET BY MOUTH ONCE DAILY IN THE MORNING BEFORE MEAL(S) Active PNV#75-Iron Oqy-MZ-RQ2-DHA- EPA (ONE DAILY ) [phone] mg-mcg-mg cmpk Take 1 tablet by mouth once daily. Active Active Problems Problem Noted Date Diagnosed Date Episodic tension-type headache, not intractable 08/07/2015 Near syncope 09/27/2014 BCP ( control pills) initiation 09/27/2014 Dysmenorrhea 09/27/2014 Sexually active at young age 1109/27/2014 GERD (gastroesophageal reflux disease) 4 Wart 09/27/2014 Headache 09/27/2014 Wears glasses 08/28/2014 Resolved Problems Problem Noted Date Diagnosed Date Resolved Date Constipation 09/09/2009 08/28/2014 Encounters Date Type Department Care Team Description 02/12/2025 9:00 AM EDT Office Visit Endocrinology [address] [place], [place] [id number] Martina Womack MD, PhD 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); Hypotension, unspecified hypotension type 02/05/2025 Travel 01/24/2025 Patient Msg Endocrinology [address] [id number] Martina Womack MD, PhD Appointment Request from Last 3 Months Immunizations Immunization Administration Dates Next Due Haemophilus influenzae b (Hb OC) vaccine, 4-dose series (HIBTITER) 04/04/2002,06/24/2001,04/12/2001,02/03 diphtheria tetanus pertussis (DTaP) vaccine, pediatric (INFANRIX) 05/13/2006,06/30/2002,06/24/2001,04/12,02/03/2001 hepatitis A (HepA) vaccine, unspecified formulation 07/05/2008,06/19/2007 hepatitis B (HepB) vaccine, 3-dose series, age 0 yr - 19 yr (ENGERIX B-PEDS, RECOMBIVAX HB-PEDS) 12/16/2001,2000,2000 human papillomavirus (HPV4) vaccine, quadrivalent (GARDASIL) 04/23/2014,09/29/2013,07/07/2013 influenza (IIV4) vaccine, ag e 6 mo - 64 yr, quadrivalent (AFLURIA, FLULAVAL, FLUZONE) 10/18/2016,08/04/2015 influenza vaccine, unspecifi ed formulation 08/04/2009,09/09/2007,09/14/2006,07/26,07/30/2004 measles mumps rubella (MMR) vaccine (M-M-R II, PRIORIX) 05/13/2006,04/04/2002 meningococcal (MenACWY-D) va ccine, quadrivalent (MENACTRA) 07/07/2013 pneumococcal (PCV7) vaccine, 7 valent (PREVNAR 7) 12/16/2001,09/30/2001,06/24/2001 poliovirus (IPV) vaccine, in activated (IPOL) 05/13/2006,06/30/2002,04/12/2001,02/03 tetanus diphtheria pertussis (Tdap) vaccine, age 7+ yr (ADACEL, BOOSTRIX) 07/07/2013 varicella (JUAN CARLOS) vaccine (VARIVAX) 06/19/2007, Family History Medical History Relation Comments Allergies Brother Arthritis Father in blood . was at [facility] when baby thought to be related to neuro problems. Asthma Father myocarditis [Other] Father 07/06; ? viral infection; PGM [place] of his conception swelling with ? allergies [Other] Father thyroid cancer [Other] Other rheumatoid arth [Other] Paternal Aunt cripple d since age 40 sciatica [Other] Paternal Aunt Heart Paternal Grandmother single kidney [Other] Paternal Uncle GI Sister 1 esophagitis, gal lbladder rheumatoid [Other] Sister 2 disabled. Relation Status Comments Brother Father Other Paternal Aunt Paternal Grandmother Paternal Uncle Sister 1 Sister 2 Social History Tobacco Use Types Packs/Day Years Used Date Smoking Tobacco: Never Passive Smoke Exposure: Yes Tobacco Cessation:Counseling Given: Not Answered Alcohol Use Standard Drinks/Week Comments Not Asked 0 (1 standard drink = 0.6 oz pur e alcohol) Area Deprivation Index Answer Date Geovanni rded National Score (1-100), lower number is lower ri sk 77 02/12/2025 State Score (1-10), lower number is lower risk 6 02/12/2025 Data from: https://www.neighborhoodatlas.medicine.[facility].edu/. Last address used for calculation [address] [place] [address] 02/12/2025 Comments No Sex and Gender Information Value Date Recorded Sex Assigned at Not on file Legal Sex Female 8:05 AM EST Gender Identity Not on file Sexual Orientation Not on file Last Filed Vital Signs Vital Sign Reading Time Taken Comments Blood Pressure 111/59 02/12/2025 8:51 AM EDT Pulse 66 02/12/2025 8:51 AM EDT Temperature 36.6 C (97.9 F) 04/30/2015 1:42 PM EDT Respiratory Rate - - Oxygen Saturation 100% 02/12/2025 8:51 AM EDT Inhaled Oxygen Concentration - - Weight 84 kg (185 lb 3 oz) 02/12/2025 8:51 AM ED T Height 159.5 cm (5' 2.8 ) 02/12/2025 8:51 AM EDT Body Mass Index 33.02 02/12/2025 8:51 AM EDT Plan of Treatment Health Maintenance Due Date Last Done Comments Peds To Adult Transition Ini tial Discussion 2012 Peds To Adult Transition Marga ual Assessment 2014 Anxiety Screening 2018 Depression Screening 2018 HIV Screening 2018 Hepatitis C Screening 2018 Cervical Cancer Screening 2021 Covid-19 Vaccine (3 2023-2 5 season) 2024 12/08/2020, 11/17/2020 DTaP,Tdap,Td Vaccine (8 - Td or Tdap) 09/15/2034 09/15/2024, 07/07/2013, 05/13/2006, Additional history exists Hepatitis B Vaccine Completed 12/16/2001, 2000, 2000 HPV Vaccine Completed 04/23/2014, 09/02, 07/07/2013 Influenza Vaccine Completed 09/15/2024, , 08/14/2021, Additional history exists Procedures Procedure Name Priority Date/Time Associated Diagnosis Comments ACTH BLD Routine 02/12/2025 9:23 AM EDT Hypotension, unspecified hypotension type CORTISOL BLD Routine 02/12/2025 9:23 AM EDT Hypotension, unspecified hypotension type COMPREHENSIVE METABOLIC PANEL Routine 02/12/2025 9:23 AM EDT Hypotension, unspecified hypotension type TSH (EXTERNAL) Routine 01/24/2025 from Last 3 Months Results * CORTISOL, SERUM (02/12/2025 9:23 AM EDT) Cortisol 11.4 4.8 - 19.5 ug/dL 02/13/2025 4:25 AM EDT [facility] Comment: Provided reference range is from 6-10 AM sample collection time. Cortisol Reference Range: 6-10 AM = 4.8-19.5 ug/dL, 4-8 PM = 2.5-11.9 ug/dL Blood BLOOD SPECIMEN / Unknown Venipuncture / Unknown 02/12/2025 9:23 AM EDT 02/12/2025 9:23 AM EDT us Martina Womack MD, PhD LABORATORY Final Re sult [facility] [address] [facility] [address] [address], [place] * (ABNORMAL) COMPREHENSIVE METABOLIC PANEL (02/12/2025 9:23 AM EDT) [facility] Protein, Total 7.8 6.3 - 8.0 g/dL 02/13/2025 4:18 AM EDT [facility] Albumin 4.8 3.9 - 4.9 g/dL 02/13/2025 4:18 AM EDT [facility] Calcium, Total 10.4(H) 8.5 - 10.2 mg/dL 02/13/2025 4:18 AM EDT [facility] Bilirubin, Total 1.0 0.2 - 1.3 mg/dL 02/13/2025 4:18 AM EDT [facility] Alkaline Phosphatase 73 34 - 123 U/L 02/13/2025 4:18 AM EDT [facility] AST 20 13 - 35 U/L 02/13/2025 4:18 AM EDT [facility] ALT 18 7 - 38 U/L 02/13/2025 4:18 AM EDT [facility] Glucose 71(L) 74 - 99 mg/dL 02/13/2025 4:18 AM EDT [facility] Comment: The [place] Diabetes Association (ADA) provides guidance for cutoff values for fasting glucose and random glucose. The ADA defines fasting as no caloric intake for at least 8 hours. Fasting plasma glucose results between 100 to 125 mg/dL indicate increased risk for diabetes (prediabetes). Fasting plasma glucose results greater than or equal to 126 mg/dL meet the criteria for diagnosis of diabetes. In the absence of unequivocal hyperglycemia, results should be confirmed by repeat testing. In a patient with classic symptoms of hyperglycemia or hyperglycemic crisis, random plasma glucose results greater than or equal to 200 mg/dL meet the criteria for diagnosis of diabetes. Reference: Standards of Medical Care in Diabetes 2016, [place] Diabetes Association. Diabetes Care. 2016.39(Suppl 1). BUN 15 7 - 21 mg/dL 02/13/2025 4:18 AM EDT [facility] Creatinine 0.55(L) 0.58 - 0.96 mg/dL 02/13/2025 4:18 AM EDT [facility] Sodium 141 136 - 144 mmol/L 02/13/2025 4:18 AM EDT [facility] Potassium 4.6 3.7 - 5.1 mmol/L 02/13/2025 4:18 AM EDT [facility] Chloride 102 98 - 107 mmol/L 02/13/2025 4:18 AM EDT [facility] CO2 29 22 - 30 mmol/L 02/13/2025 4:18 AM EDT [facility] Anion Gap 10 8 - 15 mmol/L 02/13/2025 4:18 AM EDT [facility] Estimated Glomerular Filtration Rate 131 >=60 mL/min/1. 73m 02/13/2025 4:18 AM EDT [facility] Comment:Estimated Glomerular Filtration Rate (eGFR) is calculated using the 2020 CKD-EPI creatinine equation. This equation utilizes serum creatinine, sex, and age as parameters. The creatinine assay has traceable calibration to isotope dilution- mass spectrometry. Refer to KDIGO guidelines for clinical interpretation. In patients with unstable renal function, e.g. those with acute kidney injury, the eGFR may not accurately reflect actual GFR. Blood BLOOD SPECIMEN / Unknown Venipuncture / Unknown 02/12/2025 9:23 AM EDT 02/12/2025 9:23 AM EDT us Martina Womack MD, PhD LABORATORY Final Re sult [facility] [address] [address], * ACTH BLD (02/12/2025 9:23 AM EDT) ACTH 19.4 7.2 - 63.3 pg/mL 02/12/2025 2:30 PM EDT [facility] Comment:ACTH Reference Range : 7-10 am: 7.2 - 63.3 pg/mL Blood BLOOD SPECIMEN / Unknown Venipuncture / Unknown 02/12/2025 9:23 AM EDT 02/12/2025 9:23 AM EDT us Martina Womack MD, PhD LABORATORY Final Re sult [facility] [address] [facility] [place] [address], [place] * TSH (EXTERNAL) (01/24/2025) TSH 3.28 0.2 - 5.6 IU/ml [facility] BLOOD SPECIMEN / Unknown 01/24/2025 us [facility] Provider LABORATORY Final Result Performing Organization Address City/[facility]/ZIP Co de Phone Number [facility] [address] [place] [address] from Last 3 Months Insurance [employer] PPO TPA [facility] CHOICE PLUS * Guarantor: SCARLET SMITH Account Type Relation to Patient Date of Phone Billing Address Self Pay Mother 1964 [address] [id number] Care Teams Vendor Management Associate Relationship Specialty Start Date End Date Dejah Dalal CNP [address] [facility] [address] [place] [address] PCP - General Family Medicine 03/08/23 Dejah Dalal CNP [address] [facility] [address] [place] [address] Referring Family Medicine 03/04/23
--- OUTSIDE RECORDS SUMMARY | 2025-04-17 21:09 | XMS_ITS | Encounter Summary ---
Author Organization [facility] Address [address] [facility] [place] [address] Care Team Providers Care Web Database Developer Name Role Phone Ge Cloud MD Primary Care Provider [phone] Encounter Details Date Type Department Care Team (Late Contact Info) Description 04/04/2024 Abstract [facility] OB [address] [facility] [place] [address] Rhoda Ortiz LPN Social History Tobacco Use Types Packs/Day Years [...] 05/07/2026 4:00 PM EDT Office Visit [facility] OB [address] [place] [address] Dami Canseco DO [address] [place] [place], [place] [id number] documented as of this encounter Visit Diagnoses Not on filedocumented in this encounter Care Teams Web Database Developer Relationship Specialty Start Date End Date Ge Cloud MD PCP - General Family Medicine 01/25/24 documented as of this encounter
--- OUTSIDE RECORDS SUMMARY | 2025-04-17 21:09 | XMS_ITS | Referral Summary ---
Author Organization [facility] Address [address] [place] [address] Care Team Providers Care Sleeve Presser Operator Name Role Phone Ge Cloud Primary Care Provider [phone] Encounters Date Type Department Care Team Description 04/03/2025 Telephone [facility] [address] [place] [facility] [place] [address] Christine Hare MA 03/15/2025 Telephone [facility] Cardiology [address] [place] [address] [place] [address] Mirna Borrero MD 03/08/2025 2:20 PM EDT Office Visit [facility] [address] [place] [facility] [place] [address] Mirna Borrero MD Near syncope (Primary Dx); Palpitations; Vikki's disease; Hypothyroidism affecting in second trimester; Class 1 obesity due to excess calories without serious comorbidity with body mass index (BMI) of 30.0 to 30.9 in adult from Last 3 Months Allergies Active Allergy Reactions Criticality Noted Date [...] age 1109/27/2014 Wart 09/27/2014 Wears glasses 08/28/2014 Immunizations Immunization Administration Dates Next Due DTaP, [...] B, Omv 02/24/2018,01/20/2018 Meningococcal MCV4P 01/20/2018,07/07/2013 Novel [id number], preservative-free 10/01/2009,08/25/2009 Pneumococcal Conjugate PCV 7 12/16/2001,09/30/20,06/24/2001 Polio, Unspecified 06/30/2002,04/12/2001, 001 Tdap 09/15/2024,07/07/2013 Varicella 06/19/2007,05/13/2006 Social History Tobacco Use Types Packs/Day Years [...] Description 05/10/2025 2:00 PM EDT Office Visit [facility] [address] [place] [address] Mirna Borrero MD [address] [place] [place] [address] Procedures Procedure Name Priority Date/Time Associated Diagnosis [...] Final Result from Last 3 Months Insurance [facility] Care Teams Sleeve Presser Operator Relationship Specialty Start Date End Date Ge Cloud [address] [place] [address] PCP - General 03/04/25
--- OUTSIDE RECORDS SUMMARY | 2025-04-17 21:09 | XMS_ITS | Encounter Summary ---
Author Organization [facility] Address [address] [facility] [place] [address] Care Team Providers Care Digital Hardware Design Engineer Name Role Phone Bhavya Cloud MD Primary Care Provider [phone] Encounter Details Date Type Department Care Team (Late st Contact Info) Description 07/05/2024 Clinisync Result Encounter [facility] External Department Unsolicited Carmen Alejo PA [address] [facility] [address] [place], [facility] Social History Tobacco Use Types Packs/Day Years [...] EDT Office Visit [facility] OB [address] [facility] [place] [id number] Dami Canseco DO [address] [facility] [place] [address] documented as of this encounter Procedures Procedure Name Priority Date/Time Associated Diagnosis Comments US OB GROWTH 07/05/2024 9:15 AM EDT documented in this encounter Results * US OB GROWTH (07/05/2024 9:15 AM EDT) Anatomical Region Laterality Modality Other 07/05/2024 9:15 AM EDT Narrative 07/05/2024 9:17 [place] [address] Ultrasound Report Signed Patient: EMMY QUINTANILLA MR#: [id number] : 2000 Acct:[id number] Age/Sex: 23 / F ADM Date: 07/05/24 Loc: [facility] Attending Dr: Carmen Alejo Ordering Physician: Carmen Alejo Date of Service: 07/05/24 Procedure(s): US OB growth Accession Number(s): [id number] cc: Carmen Alejo; BHAVYA CLOUD [place] [id number] Patient Name: EMMY QUINTANILLA MRN: [id number] date: 2000 Sex: F Assigned Patient Location: [facility] Current Patient Location: [facility] Accession/Order Number: [id number] Exam Date: 07/05/2024 08:01 Report Date: 07/05/2024 09:15 At the request of: CARMEN ALEJO Procedure: US OB growth EXAMINATION: US OB growth HISTORY: THYROID DISEASE COMPARISON: Ultrasound OB transvaginal 02/24/2024 FINDINGS: Heart Rate: 141 bpm Amniotic Fluid Volume: 9.7 cm; lower normal range. Number: 1 Position: CEPHALIC BIOMETRY: BPD: 6.76 cm; 27 weeks 2 days; 19.10 % HC: 25.89 cm; 28 weeks 1 day; 28.10 % AC: 22.93 cm; 27 weeks 2 days; 25.70 % FL: 5.20 cm; 27 weeks 5 days; 31.20 % EFW: 1041.34 g; 25.50 % FL/AC: 22.68 FL/BPD: 76.92 HC/AC: 1.13 GESTATIONAL AGE: Age by EDC: 27 weeks 6 days DUKE by EDC: 2024-09-28 Age by US: 27 weeks 4 days DUKE by US: 2024-09-30 US/US OB growth IMPRESSION: 1. Single live intrauterine with growth detailed above. Electronically authenticated by: JOSE TALBOT Date: 07/05/2024 09:15 Dictated By: Jose Talbot M.D. Signed By: 07/05/24916 DD/ 4 TD/TT: Log Data Technician: Procedure Note Radiology, Radiologist, MD - 07/05/2024 [place] [address] Ultrasound Report Signed Patient: EMMY QUINTANILLAMR#: [id number] : 2000Acct:[id number] Age/Sex: 23 / FADM Date: 07/05/24 Loc: [facility] Attending Dr: Carmen Alejo Ordering Physician: Carmen Alejo Date of Service: 07/05/24 Procedure(s): US OB growth Accession Number(s): [id number] cc: Carmen Alejo; BHAVYA CLOUD [place] [id number] Patient Name: EMMY QUINTANILLA MRN: [id number] date: 2000 Sex: F Assigned Patient Location: [facility] Current Patient Location: [facility] Accession/Order Number: [id number] Exam Date: 07/05/2024 08:01 Report Date: 07/05/2024 09:15 At the request of: CARMEN ALEJO Procedure: US OB growth EXAMINATION: US OB growth HISTORY: THYROID DISEASE COMPARISON: Ultrasound OB transvaginal 02/24/2024 FINDINGS: Heart Rate: 141 bpm Amniotic Fluid Volume: 9.7 cm; lower normal range. Number: 1 Position: CEPHALIC BIOMETRY: BPD: 6.76 cm; 27 weeks 2 days; 19.10 % HC: 25.89 cm; 28 weeks 1 day; 28.10 % AC: 22.93 cm; 27 weeks 2 days; 25.70 % FL: 5.20 cm; 27 weeks 5 days; 31.20 % EFW: 1041.34 g; 25.50 % FL/AC: 22.68 FL/BPD: 76.92 HC/AC: 1.13 GESTATIONAL AGE: Age by EDC: 27 weeks 6 days DUKE by EDC: 2024-09-28 Age by US: 27 weeks 4 days DUKE by US: 2024-09-30 US/US OB growth IMPRESSION: 1. Single live intrauterine with growth detailed above. Electronically authenticated by: JOSE TALBOT Date: 07/05/2024 09:15 Dictated By: Jose Talbot M.D. Signed By:07/05/24916 DD/ 4 TD/TT: Log Data Technician: us Carmen [facility] Final Result documented in this encounter Visit Diagnoses Not on filedocumented in this encounter Care Teams Digital Hardware Design Engineer Relationship Specialty Start Date End Date Bhavya Cloud MD PCP - General Family Medicine 01/25/24 documented as of this encounter
--- OUTSIDE RECORDS SUMMARY | 2025-04-17 21:09 | XMS_ITS | Encounter Summary ---
Author Organization [facility] tem Address [id number] [address] [place] [address] Care Team Providers Care Machine I Trimmer Name Role Phone Dejah Dalal APRN-PAINT LINE SUPERVISOR Primary Care Provider Encounter Details Date Type Department Care Team (Late st Contact Info) Description 04/10/2024 Abstract [facility]- Medicine at [facility] [address] [place] [address] External, Scanning Provider Social History Tobacco Use Types Packs/Day Years [...] Procedure Name Priority Date/Time Associated Diagnosis Comments TYPE AND SCREEN Routine 03/08/2024 HEMOGLOBIN A1C Routine 03/08/2024 documented in this encounter Results * Hemoglobin A1c (03/08/2024) Hemoglobin A1C 4.8 4.0 - 6.0 % MANUALLY TRANSCRIBED RESULTS us Dami R Ajith DO LAB BLOOD ORDERABLES Final Resu lt MANUALLY TRANSCRIBED RESULTS * Type and screen (03/08/2024) Abo/Rh(D) A Positive MANUALLY TRANSCRIBED RESULTS Antibody Screen Negative MANUALLY TRANSCRIBED RESULTS us Not In System Ref Prov BLOOD BANK TEST ORDERABLE S Final Result MANUALLY TRANSCRIBED RESULTS documented in this encounter Visit Diagnoses Not on filedocumented in this encounter Care Teams Machine I Trimmer Relationship Specialty Start Date End Date Dejah Dalal, ANKIT-PAINT LINE SUPERVISOR [address] [place] [address] , [address] [address] PCP - General 05/12/24 documented as of this encounter
--- OUTSIDE RECORDS SUMMARY | 2025-04-17 21:09 | XMS_ITS | Encounter Summary ---
Author Organization [facility] Address [address] [facility] [place] [address] Care Team Providers Care Horticulture Teacher Name Role Phone Ge Cloud MD Primary Care Provider [phone] Encounter Details Date Type Department Care Team (Late Contact Info) Description 05/02/2024 Abstract [facility] OB [address] [place] [address] Rhoda Ortiz LPN Social History Tobacco [...] 05/07/2026 4:00 PM EDT Office Visit [facility] OB [address] [place] [address] Dami Canseco DO [address] [place], [place] [phone] documented as of this encounter Visit Diagnoses Not on filedocumented in this encounter Care Teams Horticulture Teacher Relationship Specialty Start Date End Date Ge Cloud MD PCP - General Family Medicine 01/25/24 documented as of this encounter
--- OUTSIDE RECORDS SUMMARY | 2025-04-17 21:09 | XMS_ITS | Clinical Summary ---
Author Organization [facility] Address [address] [place] [address] Care Team Providers Care Hobbing Machine Operator Name Role Phone Ge Cloud MD Primary Care Provider [phone] Allergies Active Allergy Reactions Criticality Noted Date Comments Sulfa Antibiotics Hives,Rash Low 07/22/2015 Other Reaction(s): Unknown Other Reaction(s): Rash Other Reaction(s): hives Other Reaction(s): Unknown Other Reaction(s): Rash Other Reaction(s): hives Medications Bujhtlhi-Qzz-Pc- FA ( 1 + IRON PO) 4 Active levothyroxine (Synthroid) 50 MCG tabletIndication s:Thyroid disease Take 1 tablet (50 mcg) by mouth in the morning. Take before meals. 30 tablet 11 4 025 Active Levonorgestrel (Mirena, 52 MG,) 20 MCG/DAY intrauterine device as directed Intrauterine Active Active Problems Problem Noted Date Diagnosed Date JEFF (amniotic fluid index) borderline low 2023 Hypothyroidism Vikki's disease Hypertension Resolved Problems Problem Noted Date Diagnosed Date Resolved Date 27 weeks gestation of ([facility]) 07/05/2024 09/13/2024 Encounters Date Type Department Care Team Description 04/17/2025 4:00 PM EDT Office Visit [facility] [address] [facility] [place] [address] Dami Canseco, Well woman exam with routine gynecological exam 04/17/2025 Bamboo flowsheet [facility] [address] [facility] [place] [address] Dami Canseco DO 04/16/2025 Travel 03/04/[address] [place] [address] Dayna Myers DO mud cleaner operator appt 02/21/2025 8:30 AM EDT Office Visit [facility] [address] [facility] [place] [address] Dami Canseco DO Hypotension, unspecified hypotension type; Dizziness of unknown cause; Near syncope 02/21/2025 Telephone [facility] [address] [facility] [place] [address] Rhoda Ortiz, WATER SUPERINTENDENT 02/21/2025 Bamboo flowsheet [facility] [address] [place] [address] [place] [address] Dami Canseco DO 01/25/2025 Abstract [facility] [address] [place] [address] [place] [address] Dami Canseco DO from Last 3 Months Family History Medical History Relation Name Comments Heart failure Father Rick Hyperlipidemia Father Rick Hypertension Father Rick Rheum arthritis Father Rick Rheum arthritis Father's Sister Trisha Diabetes Maternal Grandfather Ray Heart failure Maternal Grandfather Ray Hypertension Maternal Grandfather Ray Rashes / Skin problems Maternal Grandfather Ray Cancer Maternal Grandmother Ila Stroke Maternal Grandmother Ila Thyroid disease Maternal Grandmother Ila Hyperlipidemia Mother Scarlet Rashes / Skin problems Mother Scarlet Asthma Mother's Brother Humberto Diabetes Mother's Brother Humberto Asthma Mother's Sister Jocelyne Osteoarthritis Mother's Sister Jocelyne Thyroid disease Mother's Sister Jocelyne Diabetes Paternal Grandmother Lilly Hypertension Paternal Grandmother Lilly Thyroid disease Sister 1 Terri Thyroid disease Sister 2 Vangie Relation Name Status Comments Father Rick Father's Sister Trisha Maternal Grandfather Ray Maternal Grandmother Ila Mother Scarlet Mother's Brother Humberto Mother's Sister Jocelyne Paternal Grandmother Lilly Sister 1 Terri Sister 2 Vangie Social History Tobacco Use Types Packs/Day Years [...] - - Body Mass Index - - Plan of Treatment Upcoming Encounters Date Type Department Care Team (Late st Contact Info) Description 05/07/2026 4:00 PM EDT Office Visit [facility] [address] [facility] [place] [address] Dami Canseco, DO [address] [facility] [address] [place], [place] [id number] Health Maintenance Due Date Last Done Comments Influenza Vaccine Completed 09/15/2024, , 08/14/2021, Additional history exists Insurance [facility] [place] [address] Care Teams Hobbing Machine Operator Relationship Specialty Start Date End Date Ge Cloud MD PCP - General Family Medicine 01/25/24
--- OUTSIDE RECORDS SUMMARY | 2025-04-17 21:09 | XMS_ITS | Encounter Summary ---
Author Organization [facility] Address [address] [place] [address] Care Team Providers Care Professor Of Pathology Name Role Phone Ge Cloud MD Primary Care Provider [phone] Encounter Details Date Type Department Care Team (Late st Contact Info) Description 03/14/2024 Abstract [facility] [address] [facility] [place] [address] Marcie Nick LPN [address] [facility] [place] [facility]11 Social History Tobacco Use Types Packs/Day [...] Visit [facility] OB [address] [place] [address] Dami Canseco DO [address] [facility] [address] [place] [place], [place] [address] documented as of this encounter Visit Diagnoses Not on filedocumented in this encounter Care Teams Professor Of Pathology Relationship Specialty Start Date End Date Ge Cloud MD PCP - General Family Medicine 01/25/24 documented as of this encounter
--- OUTSIDE RECORDS SUMMARY | 2025-04-17 21:09 | XMS_ITS | Encounter Summary ---
Author Organization [facility] Address [address] [place] [address] Care Team Providers Care Reconciliation Clerk Name Role Phone EufemiaDejah cabrera JAMES Unavailable [phone] KatlinDejah JAMES Primary Care Provider Source Comments In the event this information is protected by the Federal Confidentiality of Alcohol and Drug AbusePatient Records regulations: The Federal rules restrict any use of the information to criminally investigate or prosecute any alcohol or drug abuse patient.[facility] Encounter Details Date Type Department Care Team (Late st Contact Info) Description 01/24/2025 Patient Msg Endocrinology [address] [place], [place] [id number] Martina Womack MD, PhD [address] [place] [address] Appointment Request Social History Tobacco Use Types Packs/Day Years Used Date Smoking Tobacco: Passive Smo ke Exposure - Never Smoker Alcohol Use Standard Drinks/Week Comments Not Asked 0 (1 standard drink = 0.6 oz pur e alcohol) Comments No Sex and Gender Information Value Date Recorded Sex Assigned at Not on file Legal Sex Female 8:05 AM EST Gender Identity Not on file Sexual Orientation Not on file documented as of this encounter Functional Status * Are you deaf or do you have serious difficulty hearing? Answer Date of Assessment Author No 04/30/2015 1:42 PM EDT Christine Pathak, Research Coordinator * Are you blind or do you have serious difficulty seeing, even when wearing glasses? Answer Date of Assessment Author No 04/30/2015 1:42 PM EDT Christine Pathak, Research Coordinator * Do you have serious difficulty walking or climbing stairs? Answer Date of Assessment Author No 04/30/2015 1:42 PM EDT Christine Pathak, Research Coordinator * Do you have difficulty dressing or bathing? Answer Date of Assessment Author No 04/30/2015 1:42 PM EDT Christine Pathak, Research Coordinator documented as of this encounter Mental Status * Because of a physical, mental, or emotional condition, do you have serious difficulty concentrating, remembering, or making decisions? Answer Entry Date Author No 04/30/2015 1:42 PM EDT Christine Pathak, Research Coordinator documented in this encounter Plan of Treatment Not on file documented as of this encounter Visit Diagnoses Not on filedocumented in this encounter Care Teams Reconciliation Clerk Relationship Specialty Start Date End Date Dejah Dalal CNP [address] [address] PCP - General Family Medicine 03/08/23 Dejah Dalal CNP [address] [address] Referring Family Medicine 03/04/23 documented as of this encounter
--- OUTSIDE RECORDS SUMMARY | 2025-04-17 21:09 | XMS_ITS | Encounter Summary ---
Author Organization [facility] Address [address] [facility] [place] [address] Care Team Providers Care Spray Booth Operator Name Role Phone Ge Cloud MD Primary Care Provider [phone] Encounter Details Date Type Department Care Team (Late st Contact Info) Description 08/20/2024 Abstract [facility] OB [address] [place] [address] Dami Canseco, DO [address], [place] [address] Social History Tobacco Use Types Packs/Day Years [...] 05/07/2026 4:00 PM EDT Office Visit [facility] OB [address] [place] [address] Dami Canseco, DO [facility] [address] [place], [facility]11 documented as of this encounter Visit Diagnoses Not on filedocumented in this encounter Care Teams Spray Booth Operator Relationship Specialty Start Date End Date Ge Cloud MD PCP - General Family Medicine 01/25/24 documented as of this encounter
--- OUTSIDE RECORDS SUMMARY | 2025-04-17 21:09 | XMS_ITS | Encounter Summary ---
Author Organization [facility] Address [address] [facility] [place] [address] Care Team Providers Care Delivery Driver Assistant Name Role Phone Ge Cloud MD Primary Care Provider [phone] Encounter Details Date Type Department Care Team (Late st Contact Info) Description 07/19/2024 Abstract [facility] [address] [place] [address] Dami Canseco, DO [address], [place] [address] Social History Tobacco Use Types Packs/Day Years [...] 05/07/2026 4:00 PM EDT Office Visit [facility] OB [address] [place] [address] Dami Canseco, DO [facility] [address] [place], [facility]11 documented as of this encounter Visit Diagnoses Not on filedocumented in this encounter Care Teams Delivery Driver Assistant Relationship Specialty Start Date End Date Ge Cloud MD PCP - General Family Medicine 01/25/24 documented as of this encounter
--- OUTSIDE RECORDS SUMMARY | 2025-04-17 21:09 | XMS_ITS | Encounter Summary ---
Author Organization [facility] Address [address] [facility] [place] [address] Care Team Providers Care Oxidized Finish Plater Name Role Phone Ge Cloud MD Primary Care Provider [phone] Encounter Details Date Type Department Care Team (Late st Contact Info) Description 04/05/2024 Abstract [facility] OB [address] [place] [address] Marcie Nick LPN [address] [employer] [facility] [place] [facility]11 Social History Tobacco Use Types Packs/Day [...] 05/07/2026 4:00 PM EDT Office Visit [facility] OB [address] [place] [address] Dami Canseco DO [address] [facility] [address] [place] [place], [place] [id number] documented as of this encounter Visit Diagnoses Not on filedocumented in this encounter Care Teams Oxidized Finish Plater Relationship Specialty Start Date End Date Ge Cloud MD PCP - General Family Medicine 01/25/24 documented as of this encounter
--- OUTSIDE RECORDS SUMMARY | 2025-04-17 21:09 | XMS_ITS | Encounter Summary ---
Author Organization [facility] Address [address] [place] [address] Care Team Providers Care Company Dancer Name Role Phone Bhavya Cloud MD Primary Care Provider [phone] Encounter Details Date Type Department Care Team (Late st Contact Info) Description 08/27/2024 Clinisync Result Encounter [facility] External Department Unsolicited Carmen Alejo PA [address] [place], [facility]11 Social History Tobacco Use [...] Office Visit [facility] [address] [facility] [place] [address] Dami Canseco DO [address] [facility] [place] [address] documented as of this encounter Procedures Procedure Name Priority Date/Time Associated Diagnosis Comments US OB BPP W NON-STRESS 08/27/2024 4:36 AM EDT documented in this encounter Results * US OB BPP W NON-STRESS (08/27/2024 4:36 AM EDT) Anatomical Region Laterality Modality Other 08/27/2024 4:36 AM EDT Narrative 08/27/2024 4:39 [place] [address] Ultrasound Report Signed Patient: EMMY QUINTANILLA MR#: [id number] : 2000 Acct:[id number] Age/Sex: 23 / F ADM Date: 08/25/24 Loc: US Attending Dr: Carmen Alejo Ordering Physician: Carmen Alejo Date of Service: 08/25/24 Procedure(s): US OB BPP w non-stress Accession Number(s): [id number] cc: Carmen Alejo; BHAVYA CLOUD [place] [id number] Patient Name: EMMY QUINTANILLA MRN: [id number] date: 2000 Sex: F Assigned Patient Location: [facility] Current Patient Location: Accession/Order Number: [id number] Exam Date: 08/25/2024 14:00 Report Date: 08/27/2024 04:36 At the request of: CARMEN ALEJO Procedure: US OB BPP w non-stress EXAMINATION: US OB BPP w non-stress HISTORY:HX PRE ECLAMPSIA Z87.59 THYROID DISEASE E07.9 COMPARISON: Ultrasound OB biophysical 08/18/2024 TECHNIQUE: Ultrasound biophysical profile was performed in the radiology department. BREATHING MOVEMENTS: 2 GROSS BODY MOVEMENTS: 2 TONE: 2 QUALITATIVE AMNIOTIC FLUID VOLUME: 2 PRESENTATION: CEPHALIC HEART RATE: 127.36 bpm AMNIOTIC FLUID VOLUME: 13.37 cm GESTATIONAL AGE: 35 weeks 1 day US/US OB BPP w non-stress IMPRESSION: Total biophysical profile score: 8 Electronically authenticated by: JOSE TALBOT Date: 08/27/2024 04:36 Dictated By: Jose Talbot M.D. Signed By: 08/27/24438 DD/ 5 TD/TT: Construction Analyst: Procedure Note Radiology, Radiologist, - 08/27/2024 [place] [address] Ultrasound Report Signed Patient: EMMY QUINTANILLAMR#: [id number] : 2000Acct:[id number] Age/Sex: 23 / FADM Date: 08/25/24 Loc: US Attending Dr: Carmen Alejo Ordering Physician: Carmen Alejo Date of Service: 08/25/24 Procedure(s): US OB BPP w non-stress Accession Number(s): [id number] cc: Carmen Alejo; BHAVYA CLOUD [place] [address] Patient Name: EMMY QUINTANILLA MRN: [id number] date: 2000 Sex: F Assigned Patient Location: [facility] Current Patient Location: US Accession/Order Number: [id number] Exam Date: 08/25/2024 14:00 Report Date: 08/27/2024 04:36 At the request of: CARMEN ALEJO Procedure: US OB BPP w non-stress EXAMINATION: US OB BPP w non-stress HISTORY:HX PRE ECLAMPSIA Z87.59 THYROID DISEASE E07.9 COMPARISON: Ultrasound OB biophysical 08/18/2024 TECHNIQUE: Ultrasound biophysical profile was performed in the radiology department. BREATHING MOVEMENTS: 2 GROSS BODY MOVEMENTS: 2 TONE: 2 QUALITATIVE AMNIOTIC FLUID VOLUME: 2 PRESENTATION: CEPHALIC HEART RATE: 127.36 bpm AMNIOTIC FLUID VOLUME: 13.37 cm GESTATIONAL AGE: 35 weeks 1 day US/US OB BPP w non-stress IMPRESSION: Total biophysical profile score: 8 Electronically authenticated by: JOSE TALBOT Date: 08/27/2024 04:36 Dictated By: Jose Talbot M.D. Signed By:08/27/24438 DD/ 5 TD/TT: Construction Analyst: us Carmen [facility] Final Result documented in this encounter Visit Diagnoses Not on filedocumented in this encounter Care Teams Company Dancer Relationship Specialty Start Date End Date Bhavya Cloud MD PCP - General Family Medicine 01/25/24 documented as of this encounter
--- OUTSIDE RECORDS SUMMARY | 2025-04-17 21:10 | XMS_ITS | Encounter Summary ---
Author Organization [facility] Address [address] [facility] [place] [address] Care Team Providers Care Rn Infusion Name Role Phone Bhavya Cloud MD Primary Care Provider Encounter Details Date Type Department Care Team (Late st Contact Info) Description 08/05/2024 Clinisync Result Encounter [facility] External Department Unsolicited Carmen Alejo PA [address] [facility] [address] [place], [facility]11 Social History Tobacco Use Types Packs/Day [...] EDT Office Visit [facility] [address] [facility] [place] [phone] Dami Canseco, DO [address] [facility] [place] [address] documented as of this encounter Procedures Procedure Name Priority Date/Time Associated Diagnosis Comments US OB GROWTH 08/05/2024 6:22 AM EDT documented in this encounter Results * US OB GROWTH (08/05/2024 6:22 AM EDT) Anatomical Region Laterality Modality Other 08/05/2024 6:22 AM EDT Narrative 08/05/2024 6:26 [place] [address] Ultrasound Report Signed Patient: EMMY QUINTANILLA MR#: [id number] : 2000 Acct:[id number] Age/Sex: 23 / F ADM Date: 08/04/24 Loc: US Attending Dr: Carmen Alejo Ordering Physician: Carmen Alejo Date of Service: 08/04/24 Procedure(s): US OB growth Accession Number(s): [id number] cc: Carmen Alejo; BHAVYA CLOUD [place] [id number] Patient Name: EMMY QUINTANILLA MRN: [id number] date: 2000 Sex: F Assigned Patient Location: [facility] Current Patient Location: US Accession/Order Number: [id number] Exam Date: 08/04/2024 14:04 Report Date: 08/05/2024 06:22 At the request of: CARMEN ALEJO Procedure: US OB growth EXAMINATION: US OB growth HISTORY: THYROID DISEASE COMPARISON: Ultrasound OB growth 07/05/2024 FINDINGS: Heart Rate: 140.63 bpm Amniotic Fluid Volume: 11.4 cm; normal range. Number: 1 Position: Cephalic BIOMETRY: BPD: 7.87 cm; 31 weeks 4 days; 25.30 % HC: 29.00 cm; 32 weeks 0 days; 11.50 % AC: 27.31 cm; 31 weeks 3 days; 26.70 % FL: 5.86 cm; 30 weeks 4 days; 7.10 % EFW: 1723.01 g; 15.20 % FL/AC: 21.47 FL/BPD: 74.46 HC/AC: 1.06 GESTATIONAL AGE: Age by EDC: 32 weeks 1 day DUKE by EDC: 2024-09-28 Age by US: 31 weeks 3 days DUKE by US: 2024-10-03 US/US OB growth IMPRESSION: 1. Single live intrauterine with growth detailed above. Electronically authenticated by: JOSE TALBOT Date: 08/05/2024 06:22 Dictated By: Jose Talbot M.D. Signed By: 08/05/24625 DD/ 1 TD/TT: Billiard Parlor Manager: Procedure Note Radiology, Radiologist, MD - 08/05/2024 [place] [address] Ultrasound Report Signed Patient: EMMY QUINTANILLAMR#: [id number] : 2000Acct:[id number] Age/Sex: 23 / FADM Date: 08/04/24 Loc: US Attending Dr: Carmen Alejo Ordering Physician: Carmen Alejo Date of Service: 08/04/24 Procedure(s): US OB growth Accession Number(s): [id number] cc: Carmen Alejo; BHAVYA CLOUD [place] [address] Patient Name: EMMY QUINTANILLA MRN: [id number] date: 2000 Sex: F Assigned Patient Location: [facility] Current Patient Location: Accession/Order Number: [id number] Exam Date: 08/04/2024 14:04 Report Date: 08/05/2024 06:22 At the request of: CARMEN ALEJO Procedure: US OB growth EXAMINATION: US OB growth HISTORY: THYROID DISEASE COMPARISON: Ultrasound OB growth 07/05/2024 FINDINGS: Heart Rate: 140.63 bpm Amniotic Fluid Volume: 11.4 cm; normal range. Number: 1 Position: Cephalic BIOMETRY: BPD: 7.87 cm; 31 weeks 4 days; 25.30 % HC: 29.00 cm; 32 weeks 0 days; 11.50 % AC: 27.31 cm; 31 weeks 3 days; 26.70 % FL: 5.86 cm; 30 weeks 4 days; 7.10 % EFW: 1723.01 g; 15.20 % FL/AC: 21.47 FL/BPD: 74.46 HC/AC: 1.06 GESTATIONAL AGE: Age by EDC: 32 weeks 1 day DUKE by EDC: 2024-09-28 Age by US: 31 weeks 3 days DUKE by US: 2024-10-03 US/US OB growth IMPRESSION: 1. Single live intrauterine with growth detailed above. Electronically authenticated by: JOSE TALBOT Date: 08/05/2024 06:22 Dictated By: Jose Talbot M.D. Signed By:08/05/24625 DD/ 1 TD/TT: Billiard Parlor Manager: us Carmen [facility] Final Result documented in this encounter Visit Diagnoses Not on filedocumented in this encounter Care Teams Rn Infusion Relationship Specialty Start Date End Date Bhavya Cloud MD PCP - General Family Medicine 01/25/24 documented as of this encounter
--- OUTSIDE RECORDS SUMMARY | 2025-04-17 21:10 | XMS_ITS | Encounter Summary ---
Author Organization [facility] Address [address] [place] [address] Care Team Providers Care Shop Hand Name Role Phone Ge Cloud Primary Care Provider [phone] Encounter Details Date Type Department Care Team (Late st Contact Info) Description 04/03/2025 Telephone [facility] [place] [address] [place] [address] Christine Hare MA Social History Tobacco Use Types Packs/Day Years [...] Heterosexual or Straight 02/2025 5:39 PM EDT documented as of this encounter Miscellaneous Notes * Telephone Encounter - Germaine Leon MA - 04/16/2025 11:18 AM EDT Images from the original note were not included. Per Dr. Borrero: MD Germaine Burns MA Both ejection fractions are normal, the little difference between the 2 measurements is acceptable variation can occur between the readers or even if the same reader read the same study in 2 different occasions, overall is not considered to be lower. Patient informed. She verbalized understanding. * Telephone Encounter - Christine Hare MA - 04/03/2025 4:07 PM EDT Spoke to patient today 04/03/2025 patient would like to know why her ejection fraction is lower this time then from her previous ECHO which was done in March of 2023. At [place] [facility] . ECHO obtained and scanned into Hydrogen Power Plant Engineer documented in this encounter Plan of Treatment Upcoming Encounters Date Type Department Care Team (Late st Contact Info) Description 05/10/2025 2:00 PM EDT Office Visit [facility] [place] [address] [place] [phone] Mirna Borrero MD [address] MS[address] [place] [address] documented as of this encounter Visit Diagnoses Not on filedocumented in this encounter Care Teams Shop Hand Relationship Specialty Start Date End Date Ge Cloud [address] [place] [address] PCP - General 03/04/25 documented as of this encounter
--- OUTSIDE RECORDS SUMMARY | 2025-04-17 21:10 | XMS_ITS | Encounter Summary ---
Author Organization [facility] Address [address] [email or web address] [address] Care Team Providers Care Mobile Application Architect Name Role Phone Ge Cloud MD Primary Care Provider [phone] Encounter Details Date Type Department Care Team (Late Contact Info) Description 05/08/2024 Abstract [facility] OB [address] [place] [address] Dami Canseco DO [address], [facility]11 Social History Tobacco Use Types Packs/Day Years [...] 05/07/2026 4:00 PM EDT Office Visit [facility] OB [address] [place] [address] Dami Canseco DO [address] [place] [address] documented as of this encounter Visit Diagnoses Not on filedocumented in this encounter Care Teams Mobile Application Architect Relationship Specialty Start Date End Date Ge Cloud MD PCP - General Family Medicine 01/25/24 documented as of this encounter
--- OUTSIDE RECORDS SUMMARY | 2025-04-17 21:10 | XMS_ITS | Encounter Summary ---
Author Organization [facility] Address [address] [facility] [place] [address] Care Team Providers Care Crew Trainer Name Role Phone Ge Cloud MD Primary Care Provider Encounter Details Date Type Department Care Team (Late st Contact Info) Description 05/14/2024 Abstract [facility] OB [address] [place] [address] Marcie Nick LPN [address] [place] [employer] [facility] [place] [facility]11 Social History Tobacco Use Types Packs/Day Years [...] 05/07/2026 4:00 PM EDT Office Visit [facility] OB [address] [place] [address] Dami Canseco DO [address] [facility] [address] [place], [place] [id number] documented as of this encounter Visit Diagnoses Not on filedocumented in this encounter Care Teams Crew Trainer Relationship Specialty Start Date End Date Ge Cloud MD PCP - General Family Medicine 01/25/24 documented as of this encounter
--- OUTSIDE RECORDS SUMMARY | 2025-04-17 21:10 | XMS_ITS | Encounter Summary ---
Author Organization [facility] Address [address] [facility] [place] [address] Care Team Providers Care Receiving Supervisor Name Role Phone Ge Cloud MD Primary Care Provider [phone] Encounter Details Date Type Department Care Team (Late st Contact Info) Description 05/15/2024 Abstract [facility] [address] [facility] [place] [phone] Marcie Nick LPN [address] [employer] [facility] [place] [facility]11 Social History Tobacco Use Types Packs/Day [...] 05/07/2026 4:00 PM EDT Office Visit [facility] OB [address] [place] [address] Dami Canseco DO [address] [facility] [address] [place], [place] [id number] documented as of this encounter Visit Diagnoses Not on filedocumented in this encounter Care Teams Receiving Supervisor Relationship Specialty Start Date End Date Ge Cloud MD PCP - General Family Medicine 01/25/24 documented as of this encounter
--- OUTSIDE RECORDS SUMMARY | 2025-04-17 21:10 | XMS_ITS | Encounter Summary ---
Author Organization [facility] Address [address] [place] [address] Care Team Providers Care Music Intern Name Role Phone Bhavya Cloud MD Primary Care Provider [phone] Encounter Details Date Type Department Care Team (Late st Contact Info) Description 08/05/2024 Clinisync Result Encounter [facility] External Department Unsolicited Carmen Alejo PA [address] [place], [facility]11 Social History Tobacco Use Types [...] EDT Office Visit [facility] [address] [place] [phone] Dami Canseco DO [address] [facility] [place] [address] documented as of this encounter Procedures Procedure Name Priority Date/Time Associated Diagnosis Comments US OB BPP W NON-STRESS 08/05/2024 4:34 AM EDT documented in this encounter Results * US OB BPP W NON-STRESS (08/05/2024 4:34 AM EDT) Anatomical Region Laterality Modality Other 08/05/2024 4:34 AM EDT Narrative 08/05/2024 4:37 [place] [address] Ultrasound Report Signed Patient: EMMY QUINTANILLA MR#: [id number] : 2000 Acct:[id number] Age/Sex: 23 / F ADM Date: 08/04/24 Loc: US Attending Dr: Carmen Alejo Ordering Physician: Carmen Alejo Date of Service: 08/04/24 Procedure(s): US OB BPP w non-stress Accession Number(s): [id number] cc: Carmen Alejo; BHAVYA CLOUD [place] [id number] Patient Name: EMMY QUINTANILLA MRN: [id number] date: 2000 Sex: F Assigned Patient Location: [facility] Current Patient Location: Accession/Order Number: [id number] Exam Date: 08/04/2024 14:04 Report Date: 08/05/2024 04:34 At the request of: CARMEN ALEJO Procedure: US OB BPP w non-stress EXAMINATION: US OB BPP w non-stress HISTORY:THYROID DISEASE COMPARISON: Ultrasound OB growth 07/05/2024 TECHNIQUE: Ultrasound biophysical profile was performed in the radiology department. BREATHING MOVEMENTS: 2 GROSS BODY MOVEMENTS: 2 TONE: 2 QUALITATIVE AMNIOTIC FLUID VOLUME: 2 PRESENTATION: Cephalic HEART RATE: 140.63 bpm AMNIOTIC FLUID VOLUME: 11.41 cm GESTATIONAL AGE: 32 weeks 1 day US/US OB BPP w non-stress IMPRESSION: Total biophysical profile score: 8 Electronically authenticated by: JOSE TALBOT Date: 08/05/2024 04:34 Dictated By: Jose Talbot M.D. Signed By: 08/05/24436 DD/ 3 TD/TT: Artificial Marble Worker: Procedure Note Radiology, Radiologist, MD - 08/05/2024 [place] [address] Ultrasound Report Signed Patient: EMMY QUINTANILLAMR#: [id number] : 2000Acct:[id number] Age/Sex: 23 / FADM Date: 08/04/24 Loc: US Attending Dr: Carmen Alejo Ordering Physician: Carmen Alejo Date of Service: 08/04/24 Procedure(s): US OB BPP w non-stress Accession Number(s): [id number] cc: Carmen Alejo; BHAVYA CLOUD [place] [id number] Patient Name: EMMY QUINTANILLA MRN: [id number] date: 2000 Sex: F Assigned Patient Location: [facility] Current Patient Location: Accession/Order Number: [id number] Exam Date: 08/04/2024 14:04 Report Date: 08/05/2024 04:34 At the request of: CARMEN ALEJO Procedure: US OB BPP w non-stress EXAMINATION: US OB BPP w non-stress HISTORY:THYROID DISEASE COMPARISON: Ultrasound OB growth 07/05/2024 TECHNIQUE: Ultrasound biophysical profile was performed in the radiology department. BREATHING MOVEMENTS: 2 GROSS BODY MOVEMENTS: 2 TONE: 2 QUALITATIVE AMNIOTIC FLUID VOLUME: 2 PRESENTATION: Cephalic HEART RATE: 140.63 bpm AMNIOTIC FLUID VOLUME: 11.41 cm GESTATIONAL AGE: 32 weeks 1 day US/US OB BPP w non-stress IMPRESSION: Total biophysical profile score: 8 Electronically authenticated by: JOSE TALBOT Date: 08/05/2024 04:34 Dictated By: Jose Talbot M.D. Signed By:08/05/24436 DD/ 3 TD/TT: Artificial Marble Worker: us Carmen [facility] Final Result documented in this encounter Visit Diagnoses Not on filedocumented in this encounter Care Teams Music Intern Relationship Specialty Start Date End Date Bhayva Cloud MD PCP - General Family Medicine 01/25/24 documented as of this encounter
--- OUTSIDE RECORDS SUMMARY | 2025-04-17 21:10 | XMS_ITS | Encounter Summary ---
Author Organization [facility] Address [address] [facility] [place] [address] Care Team Providers Care Mental Health Aides Teacher Name Role Phone Ge Cloud MD Primary Care Provider [phone] Encounter Details Date Type Department Care Team (Late Contact Info) Description 06/26/2024 Abstract [facility] OB [address] [place] [address] Dami Canseco DO [address], [facility] [address] [address] Social History Tobacco Use Types Packs/Day Years [...] [facility] [address] [place] [address] Dami Canseco DO [address] [place] [address] documented as of this encounter Visit Diagnoses Not on filedocumented in this encounter Care Teams Mental Health Aides Teacher Relationship Specialty Start Date End Date Ge Cloud MD PCP - General Family Medicine 01/25/24 documented as of this encounter
--- OUTSIDE RECORDS SUMMARY | 2025-04-17 21:10 | XMS_ITS | Encounter Summary ---
Author Organization [facility] Address [address] [facility] [place] [address] Care Team Providers Care Stone Trimmer Name Role Phone Ge Cloud MD Primary Care Provider [phone] Encounter Details Date Type Department Care Team (Late Contact Info) Description 06/13/2024 Abstract [facility] [address] [facility] [facility] [place] [address] Henna Vasquez LPN [address] [place] [address] Social History Tobacco Use Types [...] 05/07/2026 4:00 PM EDT Office Visit [facility] OB [address] [facility] [place] [address] Dami Canseco [address] [address] documented as of this encounter Visit Diagnoses Not on filedocumented in this encounter Care Teams Stone Trimmer Relationship Specialty Start Date End Date Ge Cloud MD PCP - General Family Medicine 01/25/24 documented as of this encounter
--- OUTSIDE RECORDS SUMMARY | 2025-04-17 21:10 | XMS_ITS | Encounter Summary ---
Author Organization [facility] Address [address] [facility] [place] [address] Care Team Providers Care Civil Division Deputy Sheriff Name Role Phone Ge Cloud MD Primary Care Provider [phone] Encounter Details Date Type Department Care Team (Late st Contact Info) Description 05/15/2024 Abstract [facility] [address] [place] [phone] Marcie Nick LPN [address] [employer] [facility] [place] [facility]11 Social History Tobacco Use Types Packs/Day Years [...] 05/07/2026 4:00 PM EDT Office Visit [facility] OB [address] [place] [place] [address] Dami Canseco DO [address] [facility] [address] [place], [place] [id number] documented as of this encounter Visit Diagnoses Not on filedocumented in this encounter Care Teams Civil Division Deputy Sheriff Relationship Specialty Start Date End Date Ge Cloud MD PCP - General Family Medicine 01/25/24 documented as of this encounter
--- OUTSIDE RECORDS SUMMARY | 2025-04-17 21:10 | XMS_ITS | Encounter Summary ---
Author Organization [facility] Address [address] [facility] [place] [address] Care Team Providers Care Layout Operator Name Role Phone Ge Cloud MD Primary Care Provider [phone] Encounter Details Date Type Department Care Team (Late Contact Info) Description 06/01/2024 Abstract [facility] OB [address] [place] [address] Dami Canseco DO [address] [place], [facility]11 Social History Tobacco Use Types Packs/Day [...] 05/07/2026 4:00 PM EDT Office Visit [facility] OB [address] [place] [address] Dami Canseco DO [address] [place] [address] documented as of this encounter Visit Diagnoses Not on filedocumented in this encounter Care Teams Layout Operator Relationship Specialty Start Date End Date Ge Cloud MD PCP - General Family Medicine 01/25/24 documented as of this encounter
--- OUTSIDE RECORDS SUMMARY | 2025-04-17 21:10 | XMS_ITS | Encounter Summary ---
Author Organization [facility] Address [address] [facility] [place] [address] Care Team Providers Care Middle School Tutor Name Role Phone Ge Cloud MD Primary Care Provider [phone] Encounter Details Date Type Department Care Team (Late Contact Info) Description 05/09/2024 Abstract [facility] OB [address] [place] [address] Dami Canseco DO [address] [place], [facility]11 Social History Tobacco Use Types [...] 05/07/2026 4:00 PM EDT Office Visit [facility] OB [address] [place] [address] Dami Canseco DO [address] [place] [address] documented as of this encounter Visit Diagnoses Not on filedocumented in this encounter Care Teams Middle School Tutor Relationship Specialty Start Date End Date Ge Cloud MD PCP - General Family Medicine 01/25/24 documented as of this encounter
--- OUTSIDE RECORDS SUMMARY | 2025-04-17 21:12 | XMS_ITS | CCD ---
Author Organization [facility]ini[facility] Care Team Providers Care Rouge Miller Name Role Phone Lyndon Wyatt Primary Care Unavailable Juancarlos Maria Attending Unavailable Juancarlos Maria Admitting Unavailable Yoselin Lyndon Unavailable Lyndon Wyatt CNP Unavailable [phone] Lyndon Wyatt CNP Primary Care Provider ANKIT Wyatt Primary Care Provider ANKIT Wyatt Attending Provider [phone] Dami CANSECO R Admitting Unavailable Dami CANSECO R Attending Unavailable YOSELIN, LYNDON Admitting Unavailable YOSELIN, [...] Consulting Unavailable Benjamin BAKER Consulting Unavailable SOBEIDA LOAIZA Attending Unavailable SOBEIDA LOAZIA Admitting Unavailable SOBEIDA LOAIZA Attending Unavailable SOBEIDA LOAIZA Referring Unavailable JOSEERWOOD, LYNDON Admitting Unavailable YOSELIN, LYNDON Attending Unavailable SHIRLEY FARIAS Attending Unavailable EVARISTO CANSECOY R Referring Unavailable UNIQUEWOOD, LYNDON Primary Care Unavailable EVARISTO CANSECOY R Referring Unavailable JOSEERWOOD, LYNDON Primary Care Unavailable AJITH, DAMI R Referring Unavailable EASTERWOOD LYNDON Primary Care Unavailable MELO, CARMEN L Attending Unavailable MELO, CARMEN L Admitting Unavailable [facility] Lyn[facility] Lopez Admitting Unavailable AJITH, Dami R Attending Unavailable AJITH, Dami R Admitting Unavailable Pedro Luis VELAZQUEZ, [place] Primary Care Provider AJITH, Dami R Attending Unavailable AJITH, Dami R Admitting Unavailable MELO, CARMEN L Attending Unavailable MELO, CARMEN L Admitting Unavailable AJITH, Dami R Attending Unavailable AJITH, Dami R Admitting Unavailable AJITH, Dami R Attending Unavailable AJITH, Dami R Admitting Unavailable Unavailable Primary Care Provider Unavailabl e [facility] [employer]-[facility] Provider AJITH, Dami R Attending Unavailable AJITH, Dami R Admitting Unavailable [facility] [place] Primary Care Provider [facility] Primary Care Unavailable LASHIN, OSSAMA M Attending Unavailable [facility] Primary Care Unavailable LASHIN, OSSAMA M Referring Unavailable Pedro Luis VELAZQUEZ, [place] Primary Care Provider AJITH, DAMI Attending Unavailable AJITH, DAMI Attending Unavailable AJITH, DAMI Attending Unavailable AJITH, DAMI Attending Unavailable AJITH, DAMI Attending Unavailable AJITH, DAMI Attending Unavailable MELO, CARMEN Attending Unavailable AJITH, DAMI Attending Unavailable AJITH, DAMI Attending Unavailable MELO, CARMEN Attending Unavailable AJITH, DAMI Attending Unavailable AJITH, DAMI Attending Unavailable AJITH, DAMI Attending Unavailable AJITH, DAMI Attending Unavailable AJITH, DAMI Attending Unavailable AJITH, DAMI Attending Unavailable TAL DAVILA Referring Unavailable TAL DAVILA Admitting Unavailable TAL DAVILA Attending Unavailable Maury Tello Consulting Unavailable MD Maury Tello Consulting Unavailable Maury Tello Consulting Unavailable TAL DAVILA Attending Unavailable Allergies Allergy Classification Reported Allergen(s) Allergy Type Date of Onset Reaction(s) Facility Sulfonamides (antibiotic) (1 source) Sulfonamides (Antibiotic); Translations: [sulfa drugs] Drug Allergy [facility] Repository (7 sources) Sulfonamides (Antibiotic); Translations: [SULFA (SULFONAMIDE ANTIBIOTICS)] Drug allergy (disorder) 5 Rash [facility] Repository (2 sources) Sulfonamide Drug allergy rash [employer] Other (20 sources) Substance with sulfonamide structure and antibacterial mechanism of action (substance) Drug allergy 5 rash, [facility] (8 sources) Sulfonamides (Antibiotic); Translations: [sulfa drugs] Propensity to adverse reactions (disorder) [facility] Repository Medications Current Medications Medication Drug Class(es) Dates Sig (Normalized) Sig (Original) cyclobenzaprine hydrochloride 5 mg oral tablet (6 sources) Muscle Relaxant Start: 09-15-2023 take 1 tablet by mouth every twenty-four hours Cyclobenzaprine HCl 5 MG 1 tablet at bedtime as needed Orally Once a day for 14 days Aug, Active guar gum (NUTRISOURCE FIBER) packet (2 sources) take 1 dose by mouth in the morning guar gum (NUTRISOURCE FIBER) packet Take 1 packet by mouth in the morning. Active Lecithin (2 sources) Lecithin Sunflow er Lecithin, one capsule daily Active levothyroxine sodium 0.05 mg oral tablet (20 sources) l-Thyroxine Start: 09-18-2024 End: 09-18-2025 take 1 tablet by mouth before mealtime levothyroxine (Synthroid) 50 MCG tablet Indications: Thyroid disease Take 1 tablet (50 mcg) by mouth in the morning. Take before meals. 30 tablet 11 09/18/2024 09/18/2025 Active Start: 06-25-2024 End: 09-18-2024 take 1 tablet by mouth before mealtime levothyroxine (Synthroid) 100 MCG tablet Indications: Low blood potassium , Thyroid disease (CMS/HCC) , Hypothyroidism (acquired) (CMS/HCC) , Annette's disease (CMS/HCC) Take 1 tablet (100 mcg) by mouth in the morning. Take before meals. 30 tablet 3 06/25/2024 09/18/2024 Discontinued Start: 05-17-2024 End: 06-25-2024 take 1 tablet by mouth before mealtime levothyroxine (Synthroid) 75 MCG tablet Indications: Hyperthyroidism (CMS/HCC) Take 1 tablet (75 mcg) by mouth in the morning. Take before meals. 30 tablet 11 05/17/2024 06/25/2024 Discontinued Start: 06-28-2023 End: 02-12-2025 take 1 tablet by mouth once daily levothyroxine (SYNTHROID) 25 mcg tablet Take 1 tablet by mouth once daily. 90 tablet 06/28/2023 02/12/2025 Discontinued take 1 tablet by fredi th once daily in the morning Synthroid 25 MCG 1 tablet in the morning on an empty stomach Orally Once a day for 90 days Active Comment on above: Take 1 tablet by fredi th once daily. magnesium oxide 400 mg oral tablet (20 sources) Start: 07-24-20 End: 02-20-20 take 1 tablet by mouth once daily magnesium oxide (Mag-Ox) 400 MG tablet Indications: Leg cramps Take 1 tablet (400 mg) by mouth Daily 30 tablet 6 07/24/2024 02/19/2025 Active nitrofurantoin, macrocrystals 25 mg / nitrofurantoin, monohydrate 75 mg oral capsule (2 sources) Nitrofuran Antibacterial Start: 05-25-20 take 1 capsule by mouth every twelve hours Nitrofurantoin Monohyd Macro 100 MG 1 capsule with food Orally every 12 hrs for 7 days Apr, Active PNV#75-Iron Dgv-AO-VF6-DHA-EPA (ONE DAILY ) 28-800-440 mg-mcg-mg cmpk (1 source) take 1 tablet by mouth once daily PNV#75-Iron Lzg-EL-GX6-DHA-EPA (ONE DAILY ) 28-800-440 mg-mcg-mg cmpk Take 1 tablet by mouth once daily. Active potassium bicarbonate 20 meq effervescent oral tablet (2 sources) Start: 06-25-20 24 End: 06-30-20 24 take 1 tablet by mouth once daily Potassium Bicarb-Citric Acid 20 MEQ effervescent tablet Indications: Low blood potassium , Thyroid disease (CMS/HCC) , Hypothyroidism (acquired) (CMS/HCC) , Annette's disease (CMS/HCC) Take 20 mEq by mouth Daily for 5 days 5 tablet 06/25/2024 06/30/2024 Active predniSONE 20 mg oral tablet (4 sources) Start: 09-27-20 take 1 tablet by mouth once daily predniSONE 20 MG 1 tab Orally Once a day for 5 days Aug, Active Hpsufuwf-Wpk-Es-FA ( 1 + IRON PO) (20 sources) Start: 01-20-20 24 Yyijeetz-Wiw-Fp-FA ( 1 + IRON PO) 01/20/2024 Active vit,lance 74/iron/folic ( VITAMIN 1+1 ORAL) (2 sources) take 1 tablet by mouth in the morning vit,lance 74/iron/folic ( VITAMIN 1+1 ORAL) Take 1 tablet by mouth in the morning. Active Vitamins (2 sources) Vitamin s OTC, daily Active tamsulosin hydrochloride 0.4 mg oral capsule (2 sources) alpha-Adrenergic Mira Start: 05-25-20 take 1 capsule by mouth every twenty-four hours Tamsulosin HCl 0.4 MG 1 capsule Orally Once a day for 14 days Apr, Active tiZANidine 2 mg oral tablet (4 sources) Central alpha-2 Adrenergic Agonist Start: 09-27-20 take 1 tablet by mouth twice daily as needed tiZANidine HCl 2 MG 1 tablet as needed Orally BID PRN for 14 days Aug, Active Completed/Discontinued Medications Medication Drug Class(es) Dates Sig (Normalized) Sig (Original) aspirin 81 mg delayed release oral tablet (20 sources) Platelet Aggregation Inhibitor, Nonsteroidal Anti-inflammatory Drug End: 11-05-2024 take 1 tablet by mouth in the morning aspirin 81 MG EC tablet Take 81 mg by mouth in the morning. 11/05/2024 Discontinued Biotin (17 sources) End: 02-12-2025 BIOTIN ORAL Take by mouth q 24 HR. 02/12/2025 Discontinued take 1 tablet by fredi th every twenty-four hours Biotin 16998 MCG 1 tablet Orally Once a day OTC Not-Taking/PRN take 1 tablet by fredi th every twenty-four hours Biotin 24419 MCG 1 tablet Orally Once a day OTC Not-Taking take 1 tablet by mouth once [place] Biotin 52912 MCG 1 tablet Orally Once a day OTC Not-Taking BIOTIN ORAL Take by mouth q 24 HR. 0 Active take 1 tablet by mouth once [place] Biotin 33851 MCG 1 tablet Orally Once a day [...] carb/magnesium carb (CALCIUM & MAGNESIUM CARBONATES ORAL) (3 sources) End: 02-12-2025 calcium carb/magnesium carb (CALCIUM & MAGNESIUM CARBONATES ORAL) Calcium & Magnesium Carbonates 1000MG and 500MG - one capsule daily, OTC Active 02/12/2025 Discontinued calcium carb/mag nesium carb (CALCIUM & MAGNESIUM CARBONATES ORAL) Calcium & Magnesium Carbonates 1000MG and 500MG - one capsule daily, OTC Active 0 Active Comment on above: Calcium & Magnesium Carbonates 1000MG and 500MG - one capsule daily, OTC Active calcium polycarbophil 625 mg oral tablet (20 sources) End: 11-05-19 take 1 tablet by mouth once daily Calcium Polycarbophil (fiber) 625 MG tablet Take 625 mg by mouth Daily 11/05/2024 Discontinued docusate sodium 100 mg oral capsule (20 sources) End: 11-05-19 take 1 capsule by mouth once daily docusate sodium (Colace) 100 MG capsule Take 100 mg by mouth Daily 11/05/2024 Discontinued take 1 capsule by mo uth in the morning, then take 1 capsule by mouth at bedtime docusate sodium (COLACE) 50 mg capsule Take 1 capsule (50 mg total) by mouth in the morning and 1 capsule (50 mg total) before bedtime. Active drospirenone / Ethinyl Estradiol (1 source) Progestin, Estrogen Start: 10-21-2016 End: 03-08-2023 take 1 tablet by mouth once daily Drospirenone-Ethinyl Estradiol (CATY, 28,) 3-0.03 mg per tablet Indications: Dysmenorrhea Take 1 tablet by mouth once daily. 3 Package 4 10/21/2016 03/08/2023 Discontinued Comment on above: Take 1 tablet by fredi once daily. guar gum powder (5 sources) End: 07-05-2024 take 1 dose by mouth in the morning guar gum powder Take 1 packet by mouth in the morning. 07/05/2024 Discontinued take 1 dose by mouth in the morn ing guar gum powder Take 1 packet by mouth in the morning. Active Iodine (15 sources) End: 02-12-2025 take 1 capsule by mouth once daily IODINE ORAL Iodine 225MCG capsule daily, OTC Active 02/12/2025 Discontinued Iodine 225MCG ca psule daily, OTC Not-Taking/PRN Iodine 225MCG ca psule daily, OTC Not-Taking take 1 capsule by mouth once ana maría ly IODINE ORAL Iodine 225MCG capsule daily, OTC Active 0 Active Iodine 225MCG ca psule daily, OTC Active Comment on above: Iodine 225MCG capsul e daily, OTC Active Lactobacillus acidophilus (3 sources) End: 02-12-2025 Lactobacillus acidophilus (PROBIOTIC ORAL) Probiotic OTC, daily Active 02/12/2025 Discontinued Lactobacillus ac idophilus (PROBIOTIC ORAL) Probiotic OTC, daily Active 0 Active Comment on above: Probiotic OTC, daily Active lactobacillus rhamnosus gg [id number] unt oral capsule (1 source) Start: 04-30-20 End: 03-08-20 take 1 capsule by mouth once daily lactobacillus rhamnosus (CULTURELLE) 10 billion cell capsule Indications: Abdominal pain Take 1 capsule by mouth once daily. 30 capsule 2 04/30/2015 03/08/2023 Discontinued Comment on above: Take 1 capsule by [facility] once daily. levonorgestrel 0.635268 mg/hr intrauterine system (2 sources) Progestin, Progestin-containing Intrauterine Device Start: 12-05-19 End: 12-05-19 Levonorgestrel intrauterine device 52 mg Start: 12-05-2024 End: 12-05-2024 52 mg, Other, Once PRN Proce dure, Starting on Tue12/05/24 at 1530, For 1 dose Moringa (14 sources) Moringa 6000MG, one capsule, daily, OTC Not-Taking/PRN Moringa 6000MG, one capsule, daily, OTC Not-Taking Moringa 6000MG, one capsule, daily, OTC Active MULTI-VITAMIN ORAL (3 sources) End: 02-12-2025 MULTI-VITAMIN ORAL Multivita min OTC, daily Active 02/12/2025 Discontinued MULTI-VITAMIN OR AL Multivitamin OTC, daily Active [...] Comment on above: Take 1 capsule by [facility] once daily. ondansetron 4 mg disintegrating oral tablet (20 sources) Serotonin-3 Receptor Antagonist Start: 02-15-2024 End: 11-05-2024 take 1 tablet by mouth every six hours for nausea ondansetron ODT (Zofran-ODT) 4 MG disintegrating tablet Indications: Nausea/vomiting in Take 1 tablet (4 mg) by mouth every 6 (six) hours if needed for nausea or vomiting for up to 30 doses 30 tablet 2 02/15/2024 11/05/2024 Discontinued pantoprazole 20 mg delayed release oral tablet (9 sources) Proton Pump Inhibitor Start: 07-12-2023 take 1 tablet by mouth every twenty-four hours Pantoprazole Sodium 20 MG 1 tablet Orally Once a day for 30 days Jul, Not-Taking/PRN vit no.124/iron/folic ( VITAMIN ORAL) (3 sources) End: 02-12-2025 vit no.124/iron/folic ( VITAMIN ORAL) Vitamins OTC, daily Active 02/12/2025 Discontinued vit no. 124/iron/folic ( VITAMIN ORAL) Vitamins OTC, daily Active [...] Problem Classification Problem Date Documented Date Episodic/Chronic Asthma (20 sources) Exercise-induced asthma; Translations: [Exercise induced bronchospasm] Chronic Cardiac dysrhythmias (16 sources) Tachycardia; Translations: [Tachycardia, unspecified] Onset: 03-08-2025 Episodic Conditions associated with dizziness or vertigo (16 sources) Dizziness and giddiness; Translations: [Dizziness] Episodic Esophageal disorders (12 sources) Gastroesophageal reflux disease; Translations: [Gastro-esophageal reflux disease without esophagitis] Onset: 09-27-2014 09-27-2014 Chronic Essential hypertension (3 sources) Hypertensive disorder; Translations: [Essential (primary) hypertension] 02-21-2025 Chronic Gastritis and duodenitis (1 source) Acute gastritis with bleeding Episodic Genitourinary symptoms and ill-defined conditions (15 sources) Dysuria; Translations: [Dysuria] Episodic Headache; including migraine (3 sources) Episodic tension-type headache; Translations: [Episodic tension-type headache, not intractable] Onset: 08-07-2015 08-07-2015 Chronic Malaise and fatigue (15 sources) Fatigue; Translations: [Chronic fatigue, unspecified] Chronic Malaise and fatigue (14 sources) Fatigue; Translations: [Other fatigue] Episodic Menstrual disorders (3 sources) Dysmenorrhea; Translations: [Dysmenorrhea, unspecified] Onset: 09-27-2014 09-27-2014 Chronic Nonspecific chest pain (14 sources) Chest pain; Translations: [Chest pain, unspecified] Episodic Other bone disease and musculoskeletal deformities (5 sources) Idiopathic scoliosis AND/OR kyphoscoliosis; Translations: [Other idiopathic scoliosis, thoracic region] Chronic Other circulatory disease (14 sources) Low blood pressure; Translations: [Hypotension, unspecified] 02-12-2025 Episodic Other circulatory disease (1 source) Hypotension, unspecified; Translations: [Hypotension, unspecified hypotension type] Onset: 02-12-2025 Episodic Other complications of ; puerperium affecting [...] trimester] Onset: 05-14-2024 Episodic Other complications of (4 sources) History of pre-eclampsia; Translations: [Personal history of other complications of , childbirth and the puerperium] Onset: 05-14-2024 07-19-2024 Episodic Other inflammatory condition of skin (14 sources) Pityriasis rosea; Translations: [Pityriasis rosea] Chronic Other non-traumatic joint disorders (1 source) Pain in unspecified hip Episodic Other nutritional; endocrine; and metabolic disorders (1 source) Abnormal weight loss Episodic Other and delivery including normal (17 sources) Encounter for care and examination of [...] ] Onset: 05-14-2024 Episodic Residual codes; unclassified (2 sources) Gestation [...] [36 weeks gestation of ] 09-03-2024 Episodic Residual codes; unclassified (2 sources) Gestation period, 37 weeks; Translations: [37 weeks gestation of ] 09-10-2024 Episodic Spondylosis; intervertebral disc disorders; other back problems (1 source) Pain in thoracic spine Episodic Sprains and strains (1 source) Strain of muscle, fascia and tendon at neck level, initial encounter Episodic Syncope (7 sources) Near syncope; Translations: [Syncope and collapse] Onset: 09-27-2014 09-27-2014 Episodic Thyroid disorders (20 sources) Goiter; Translations: [Nontoxic goiter, unspecified] Onset: 05-13-2024 Chronic Thyroid disorders (6 sources) Disorder of thyroid gland; Translations: [Disorder of thyroid, unspecified] 06-25-2024 Episodic Past or Other Problems Problem Classification Problem Date Documented Da te Episodic/Chronic Abdominal pain (16 sources) Pain in pelvis; Translations: [Pelvic and perineal pain] 06-25-2024 Episodic Blindness and vision defects (3 sources) Wears glasses; Translations: [Presence of spectacles and contact lenses] Onset: 08-28-2014 08-28-2014 Episodic Contraceptive and procreative management (6 sources) Patient encounter status; Translations: [Encounter for initial prescription of contraceptive pills] Onset: 09-27-2014 09-27-2014 Episodic Fluid and electrolyte disorders (2 sources) Hypokalemia; Translations: [Hypokalemia] 06-25-2024 Episodic Headache; including migraine (3 sources) Headache; Translations: [Headache] Onset: 09-27-2014 09-27-2014 Episodic Other complications of (20 sources) Abnormal amniotic fluid; Translations: [Other abnormal findings on screening of mother] Onset: 07-05-2024 07-05-2024 Episodic Other complications of (4 sources) Hypothyroidism in ; Translations: [Endocrine, nutritional and metabolic diseases complicating , second trimester] Onset: 05-13-2024 05-14-2024 Episodic Other complications of (2 sources) Anomaly of placenta; Translations: [Malformation of placenta, unspecified, second trimester] Onset: 05-14-2024 05-14-2024 Episodic Other gastrointestinal disorders (1 source) Constipation; Translations: [Constipation, unspecified] Onset: 09-09-2009 Resolved: 08-28-2014 08-28-2014 Episodic Other non-traumatic joint disorders (1 source) Pain in right shoulder; Translations: [Pain in right shoulder] Onset: 10-25-2023 Episodic Residual codes; unclassified (3 sources) High risk sexual behavior; Translations: [High risk heterosexual behavior] Onset: 09-27-2014 09-27-2014 Episodic Residual codes; unclassified (20 sources) Gestation period, 27 weeks; Translations: [27 weeks gestation of ] Onset: 07-05-2024 Resolved: 09-13-2024 07-05-2024 Episodic Residual codes; unclassified (1 source) Gestation period, 20 weeks; Translations: [20 weeks gestation of ] 05-13-2024 Episodic Viral infection (4 sources) Viral infection, unspecified; Translations: [Verruca vulgaris] Onset: 09-27-2014 Episodic Results Test Name Value Interpretation Reference Range Facility 04-03-2025 36 Spoke to patient dominique regan 04/03/2025 patient would like to know why her ejection fraction is lower this time then from her previous ECHO which was done in March of 2023. At [facility] . ECHO obtained and scanned into [facility] 03-29-2025 36 Tal Davila MD Physician Signed 03/15/2025 Copy Please inform patient that I reviewed her Holter monitor and it is totally normal. When she triggered the monitor she was in sinus rhythm and sinus tachycardia heart rate between 98 and 131. If she continues to have significant symptoms of palpitations we can consider small dose of beta-blockers Spoke to patient and advised her of Sr. Davila's findings and recommendations [facility] 03-15-2025 36 Please inform patien t that I reviewed her Holter monitor and it is totally normal. When she triggered the monitor she was in sinus rhythm and sinus tachycardia heart rate between 98 and 131. If she continues to have significant symptoms of palpitations we can consider small dose of beta-blockers Normal [facility] Office Visiton 03-08-2025 Follow-up visit [id number] Anne MariechristinaEmmy pollock 2000 F Date Provider Department Center 03/08/2025 TAL PENNY DAMARI [facility] Family History Problem Relation Age of Onset Hyperlipidemia Mother Heart failure Father Hyperlipidemia Father Hypertension Father Rheum arthritis Father Thyroid disease Sister Thyroid disease Mother's Sister Asthma Mother's Brother Cancer Maternal Grandmother Stroke Maternal Grandmother Thyroid cancer Maternal Grandmother Diabetes Maternal Grandfather Heart failure Maternal Grandfather Hypertension Maternal Grandfather Diabetes Paternal Grandmother Family Status - Relation Status Age at Mother Alive Father Sister Alive Brother Alive Mother's Sister Mother's Brother Maternal Grandmother Maternal Grandfather Paternal Grandmother Level of Service:28967 PA OFFICE/OUTPATIENT NEW MODERATE MDM 45 MINUTES Reason for Visit and Comments: Hypotension [407] near-syncope [Other] Palpitations [326319] Normal [facility] ACTH BLDon 02-12-2025 Corticotropin (P) [Mass/Vol] 19.4 pg/mL 7.2 - 63.3 pg/mL [facility] Comment on above: ACTH Reference Range : 7-10 am: 7.2 - 63.3 pg/mL ACTH Plas-mCncon 02-12-2025 Corticotropin (P) [Mass/Vol] 19.4 pg/mL Normal 7.2-63.3 [facility] Comment on above: Order Comment: Speci men Type: BLOOD SPECIMEN Ordering Facility: [facility] Address: [address] [place] [address] Result Comment: ACTH Reference Range: 7-10 am: 7.2 - 63.3 pg/mL Performed By: #### 2 141-0 #### [facility] CLIA [id number] [address] [place] [address] [place] CNOVon 02-12-2025 CNOV Office Visit (ENDOLN ) EMMY DALE ([id number]) 1 F Date Time Provider Department 02/12/25 9:00 AM MARTINA RODRIGUEZ During your visit today, we recorded the following information about you: Pulse Blood pressure Weight Height 66/minute 111/59 84 kg 1.595 m Isabel Norwood MA 02/12/2025 12:52 PM Signed Last 4 Encounter BP Readings: Date: BP: 02/12/2025 111/59 03/08/2023 116/76 10/18/2016 115/78 08/01/2015 100/80 Last 4 Encounter Wt Readings: Date: Wt: 02/12/2025 84 kg (185 lb 3 oz) 03/08/2023 83.9 kg (185 lb) 10/18/2016 71 kg (156 lb 9.6 oz) (91%, Z= 1.33)* 08/01/2015 68.5 kg (151 lb) (91%, Z= 1.33)* Martina Rodriguez MD, PhD 02/12/2025 12:52 PM Signed Ms. Dale is here today for my opinion regarding some non specific symptoms that she has been experiencing. 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 She is currently taking LT4 50 mcg daily as prescribed (dose was up to ~ 100 mcg daily during ). She delivered her second baby around mid August 2024 She reports episodic low BP and dizziness. Other symptoms listed in ROS Neck pressure symptoms. No H/O exposure to ionizing radiation to the head and neck. No H/O Thyroid cancer in one or more first degree relatives. No H/O Prior Thyroid surgery. No Review of Systems Constitutional: Positive for fatigue. Negative for night sweats and recent unintentional weight change. HENT: Negative for trouble swallowing, postnasal drip and thyroid pain (lower neck). Eyes: Positive for visual disturbance. Respiratory: Negative for difficulty breathing. Cardiovascular: Negative for chest pain, leg swelling and claudication. Gastrointestinal: Positive for constipation. Negative for heartburn, nausea, vomiting, abdominal pain and diarrhea. Genitourinary: Positive for irregular menses. Negative for urgency, frequent urination, slower stream, menstruating and amenorrhea. Musculoskeletal: Positive for myalgias. Negative for muscle weakness and bone pain. Skin: Positive for skin color changes. Neurological: Positive for dizziness and headaches. Negative for numbness. Endo/Heme/Allergies: Positive for flushing. Negative for polydipsia, cold intolerance when others are comfortable, heat intolerance when others are comfortable, hot flashes and changes in body hair. Answers submitted by the patient for this visit: Endocrine Review of Systems (Submitted on 02/05/2025) Fatigue: Yes Night sweats: No Recent unintentional weight change: No Skin Color Changes: Yes Post-Nasal Drip: No Thyroid Pain (lower neck): No Trouble Swallowing: No Vision Disturbance: Yes Chest pain: No Leg Swelling: No Blood Clots?: No Leg Pain while walking?: No Difficulty Breathing?: No Heartburn: No Nausea: No Vomiting: No Diarrhea: No Constipation: Yes Abdominal pain: No Bone Pain?: No Muscle aches: Yes Muscle weakness: No Joint pain or stiffness: Yes Headaches: Yes Dizziness: Yes Numbness?: No Urgency to Urinate?: No Increased Urination: No Slow or Small Urine Stream?: No Are your menstrual cycles regular?: No Are your menstrual cycles irregular?: Yes Have your menstrual cycles stopped?: No Flushing: Yes Hot Flashes?: No Increased Thirst: No Change in Body Hair?: No Cold Intolerance: No Heat Intolerance: No PAST MEDICAL HISTORY Diagnosis Date Unspecified asthma(493.90) Social History: Social History Tobacco Use Smoking status: Never Passive exposure: Yes FAMILY HISTORY Problem Relation Age of Onset [...] Arthritis Father in blood . was at [facility] when baby thought to be related to neuro problems. Current Outpatient Medications Medication Sig levothyroxine (SYNTHROID) 50 mcg tablet (more content not included)... Normal [facility] Comprehensive metabolic 2000 panelon 02-12-2025 Albumin [Mass/Vol] 4.8 g/dL Normal 3.9-4.9 [facility] Comment on above: Order Comment: Rozina florez Type: BLOOD SPECIMEN [facility] Address: [address] [place] [address] Performed By: #### 2 143-6, 00302-8 #### [facility] CLIA [id number] [address] [place] [address] [place] ALP [Catalytic activity/Vol] 73 U/L Normal 34-123 [facility] Comment on above: Order Comment: Speci vikki Type: BLOOD SPECIMEN [facility] Address: [address] [place] [address] Performed By: #### 2 143-6, 72916-7 #### [facility] CLIA [id number] [address] [place] [address] [place] ALT [Catalytic activity/Vol] 18 U/L Normal 7-38 [facility] Comment on above: Order Comment: Speci men Type: BLOOD SPECIMEN [facility] Address: [address] [place], [place] [address] Performed By: #### 2 143-6, 00052-2 #### [facility] CLIA [id number] [address] [place] [address] [place] Anion gap [Moles/Vol] 10 mmol/L Normal 8-15 [facility] Comment on above: Order Comment: Speci men Type: BLOOD SPECIMEN [facility] Address: [address] [place] [address] Performed By: #### 2 143-6, 47094-2 #### [facility] CLIA [id number] [address] [place] [address] [place] AST [Catalytic activity/Vol] 20 U/L Normal 13-35 [facility] Comment on above: Order Comment: Speci men Type: BLOOD SPECIMEN [facility] Address: [address] [place] [address] Performed By: #### 2 143-6, 99931-0 #### [facility] CLIA [id number] [address] [place] [address] [place] Bilirubin [Mass/Vol] 1.0 mg/dL Normal 0.2-1.3 [facility] Comment on above: Order Comment: Speci men Type: BLOOD SPECIMEN [facility] Address: [address] [place] [address] Performed By: #### 2 143-6, 51776-5 #### [facility] CLIA [id number] [address] [place] [address] [place] Calcium [Mass/Vol] 10.4 mg/dL High 8.5-10.2 [facility] Comment on above: Order Comment: Speci men Type: BLOOD SPECIMEN [facility] Address: [address] [place] [address] Performed By: #### 2 143-6, #### [facility] CLIA [id number] [address] [place], [place] [address] [place] Chloride [Moles/Vol] 102 mmol/L Normal 98-107 [facility] Comment on above: Order Comment: Speci men Type: BLOOD SPECIMEN [facility] Address: [address] [place] [address] Performed By: #### 2 143-6, 28246-7 #### [facility] CLIA [id number] [address] [place] [address] [place] CO2 [Moles/Vol] 29 mmol/L Normal 22-30 [facility] Comment on above: Order Comment: Speci men Type: BLOOD SPECIMEN [facility] Address: [address] [place] [address] Performed By: #### 2 143-6, 34654-5 #### [facility] CLIA [id number] [address] [place] [address] [place] Creatinine [Mass/Vol] 0.55 mg/dL Low 0.58-0.96 [facility] Comment on above: Order Comment: Speci men Type: BLOOD SPECIMEN [facility] Address: [address] [place] [address] Performed By: #### 2 143-6, 98799-6 #### [facility] CLIA [id number] [address] [place] [address] [place] Creatinine and Glomerular filtration rate.predicted panel (S/P/Bld) 131 mL/min/1.73m??? Normal >=60 [facility] Comment on above: Order Comment: Speci men Type: BLOOD SPECIMEN [facility] Address: [address] [place] [address] Result Comment: Farhana mated Glomerular Filtration Rate (eGFR) is calculated using the 2020 CKD-EPI creatinine equation. This equation utilizes serum creatinine, sex, and age as parameters. The creatinine assay has traceable calibration to isotope dilution-mass spectrometry. Refer to KDIGO guidelines for clinical interpretation. In patients with unstable renal function, e.g. those with acute kidney injury, the eGFR may not accurately reflect actual GFR. Performed By: #### 2 143-6, 02202-2 #### [facility] CLIA [id number] [address] [place], [place] [address] [place] Glucose [Mass/Vol] 71 mg/dL Low 74-99 [facility] Comment on above: Order Comment: Rozina florez Type: BLOOD SPECIMEN [facility] Address: [address] [place] [address] Result Comment: The [place] [employer] (ADA) provides guidance for cutoff [...] Standards of Medical Care in Diabetes 2016, [place] [employer]. Diabetes Care. 2016.39(Suppl 1). Performed By: #### 2 143-6, #### [facility] CLIA [id number] [address] [place], [place] [address] [place] Potassium [Moles/Vol] 4.6 mmol/L Normal 3.7-5.1 [facility] Comment on above: Order Comment: Rozina florez Type: BLOOD SPECIMEN [facility] Address: [address] [place] [address] Performed By: #### 2 143-6, 45424-7 #### [facility] CLIA [id number] [address] [place] [address] [place] Protein [Mass/Vol] 7.8 g/dL Normal 6.3-8.0 [facility] Comment on above: Order Comment: Speci men Type: BLOOD SPECIMEN [facility] Address: [address] [place] [address] Performed By: #### 2 143-6, 38848-4 #### [facility] CLIA [id number] [address] [place] [address] [place] Sodium [Moles/Vol] 141 mmol/L Normal 136-144 [facility] Comment on above: Order Comment: Speci men Type: BLOOD SPECIMEN [facility] Address: [address] [place] [address] Performed By: #### 2 143-6, 08451-6 #### [facility] CLIA [id number] [address] [place] [address] [place] Urea nitrogen [Mass/Vol] 15 mg/dL Normal 7-21 [facility] Comment on above: Order Comment: Speci men Type: BLOOD SPECIMEN [facility] Address: [address] [place] [address] Performed By: #### 2 143-6, 28270-1 #### [facility] CLIA [id number] [address] [place] [address] [place] Corticotropin (P) [Mass/Vol] on 02-12-2025 Interpretation and review of laboratory results Normal [facility] Cortjordan Goode-Chhayaon 02-13-20 25 Cortisol [Mass/Vol] 11.4 ug/dL Normal 4.8-19.5 [facility] Comment on above: Order Comment: Speci men Type: BLOOD SPECIMEN [facility] Address: [address] [place] [address] Result Comment: Prov ided reference range is from 6-10 AM sample collection time. Cortisol Reference Range: 6-10 AM = 4.8-19.5 ug/dL, 4-8 PM = 2.5-11.9 ug/dL Performed By: #### 2 143-6, 52681-7 #### [facility] CLIA [id number] [address] [id number] [place] TSHon 01-24-2025 TSH Qn 3.28 m[IU]/L Normal 0.34-5.60 [facility] Comment on above: Performed By: #### 2 [id number] #### [facility] [address] [place] [address] HCG ( test) Ql (U)o n 12-05-2024 Interpretation and review of laboratory results Normal [facility] Preg Test, Ur Negative Negative [facility] IUD Insertionon 12-05-2024 Mar Ortega LPN 12/09/2024 12:48 PM IUD Insertion Performed by: Dami Canseco DO Authorized by: Dami Canseco DO Procedure: IUD insertion Consent obtained by patient, parent, or legal power of legal writing professor - including discussion of procedure risks and benefits, patient questions answered, and patient education provided: yes risk: reasonably certain the patient is not Date/Time of Insertion: 12/05/2024 4:33 PM Speculum placed in vagina: yes Cervix cleaned and prepped: yes Tenaculum/Allis/Ring Forceps applied to cervix: yes IUD inserted without complications: yes OSM: 52 mg Levonorgestrel 20 MCG/DAY Patient tolerated procedure well: yes Intended removal date: 5 years Insertion comments: IUD Insertion: Patient presents today for an IUD Insertion. Patient is having a Mirena placed and written consent was obtained. Patient was placed in the dorsal lithotomy position with feet in stirrups. A sterile speculum ws placed into the vagina and the cervix was visualized. Cervix was cleansed with betadine and the anterior lip was grasped with ring forceps. Uterus was then gently sounded. New IUD device was gently advanced through the endocervix, toward te uterine fundus. The IUD was then deployed as device was gently removed from the uterus. The IUD strings were cut to the length from external os. All instruments were removed from the vagina. Post-procedure instructions given. All of patients questions were answered and she expressed understanding. Advised to call interim with any questions or concerns. Follow Up: Patient is to return to the office in 4 weeks for a string check. [facility] IUD InsertionOrdered By: Andrew Ortega on 12-05-2024 [facility] TSHon 11-22-2024 TSH Qn 2.08 m[IU]/L Normal 0.34-5.60 [facility] Comment on above: Performed By: #### 2 [id number] #### [facility] [address] [place] [address] ALL CBC WITH AUTO DIFFon BASOPHILS ABSOLUTE AUTO 0.1 [facility] Basophils/100 WBC (Bld) 0.5 % 0.2 - 2.0 % [facility] Eosinophils/100 WBC (Bld) 1.5 % 0.9 - 7.0 % [facility] Erythrocyte distribution width (RBC) [Ratio] 13.4 % 11.0 - 15.0 % [facility] Hematocrit (Bld) [Volume fraction] 34.8 % Low 36.0 - 48.0 % [facility] Hemoglobin (Bld) [Mass/Vol] 11.8 g/dL Low 12.0 - 16.0 g/dL [facility] IMMATURE GRANULOCYTES ABS AUTO 0.03 [facility] Immature granulocytes/100 WBC (Bld) 0.3 % 0.0 - 0.5 % [facility] Interpretation and review of laboratory results Abnormal [facility] LYMPHOCYTES ABSOLUTE AUTO 1.9 [facility] Lymphocytes/100 WBC (Bld) 19.7 % Low 20.5 - 60.0 % [facility] MCH (RBC) [Entitic mass] 30.3 pg 26.7 - 34.0 pg [facility] MCHC (RBC) [Mass/Vol] 33.9 g/dL 29.9 - 35.2 g/dL [facility] MCV (RBC) [Entitic vol] 89.2 fL 81.0 - 99.0 fL [facility] MONOCYTES ABSOLUTE AUTO 0.7 [facility] Monocytes/100 WBC (Bld) 7.4 % 1.7 - 12.0 % [facility] NEUTROPHILS ABSOLUTE AUTO 6.8 High [facility] Neutrophils/100 WBC (Bld) 70.6 % 43.0 - 75.0 % [facility] Platelet mean volume (Bld) [Entitic vol] 10.4 fL 9.5 - 13.5 fL [facility] TBH E[facility] # [facility] [address] [facility] RBC 3.[address] [facility] WBC 9.7 [facility] WITH [facility]ATELET NO DI FFERENTIALon 09-13-2024 Erythrocyte distribution width (RBC) [Ratio] 13.3 % 11.0 - 15.0 % [facility] Hematocrit (Bld) [Volume fraction] 36.8 % 36.0 - 48.0 % [facility] Hemoglobin (Bld) [Mass/Vol] 12.7 g/dL 12.0 - 16.0 g/dL [facility] Interpretation and review of laboratory results Abnormal [facility] MCH (RBC) [Entitic mass] 30.4 pg 26.7 - 34.0 pg [facility] MCHC (RBC) [Mass/Vol] 34.5 g/dL 29.9 - 35.2 g/dL [facility] MCV (RBC) [Entitic vol] 88 fL 81.0 - 99.0 fL [facility] Platelet mean volume (Bld) [Entitic vol] 10.6 fL 9.5 - 13.[address] [facility] [address] [facility] RBC 4.[address] [facility] WBC 9.4 [facility] DRUG SCREEN RAPID (URINE )on 09-13-2024 AMPHETAMINE SCREEN URINE Negative NEGATIVE [facility] BARBITURATES SCREEN URINE Negative NEGATIVE [facility] BENZODIAZEPINES SCREEN URINE Negative NEGATIVE [facility] BUPRENORPHINE SCREEN URINE Negative NEGATIVE [facility] Comment on above: DRUG CLASS TEST SYST EM CUT-OFF CONCENTRATIONS ARE FOLLOWS: AMP (Amphetamine): 500 ng/mL BAR (Barbiturates): 200 ng/mL BZO (Benzodiazepines): 150 ng/mL BUP (Buprenorphine): 10 ng/mL DARIO (Cocaine): 150 ng/mL mAMP (Methamphetamine): 500 ng/mL MTD (Methadone): 200 ng/mL OPI (Opiates): 100 ng/mL OXY (Oxycodone): 100 ng/mL PCP (Phencyclidine): 25 ng/mL THC (Cannabinoids): 50 ng/mL TCA (Trycyclic Antidepressants): 300 ng/mL CANNABINOID SCREEN URINE Negative NEGATIVE [facility] COCAINE SCREEN URINE Negative NEGATIVE [facility] METHADONE SCREEN URINE Negative NEGATIVE [facility] METHAMPHETAMINES SCREEN URINE Negative NEGATIVE [facility] OPIATE SCREEN URINE Negative NEGATIVE [facility] OXYCODONE SCREEN URINE Negative NEGATIVE [facility] PHENCYCLIDINE SCREEN URINE Negative NEGATIVE [facility] TRICYCLIC ANTIDEPRESSANT URINE Negative NEGATIVE [facility] Urinalysis macro (dipstick) panel (U)on 09-10-2024 Bilirubin, UA Negative Negative - 4(70) +++ mg/dL [facility] Blood, UA Negative Negative - 50 Juanito/mcL [facility] Clarity, UA Clear [facility] Color, UA Yellow [facility] Glucose, UA Negative Negative - 1999(110) ++++ mg/dL [facility] Interpretation and review of laboratory results Normal [facility] Ketones, UA Negative Negative - 160(16) ++++ mg/dL [facility] Leukocytes, UA Negative Negative - 500+++ Ken/mcL [facility] Nitrite, UA Negative Negative - Positive [facility] pH, UA 7 5 - 9 [facility] Protein, UA Negative Negative - 1999(20) ++++ mg/dL [facility] Spec Grav, UA 1.01 1 - 1.03 [facility] Urobilinogen, UA 1.0 0.2 - 12 mg/dL [facility] Urinalysis macro (dipstick) panel (U)on 09-03-2024 Bilirubin, UA Negative Negative - 4(70) +++ mg/dL [facility] Blood, UA Negative Negative - 50 Juanito/mcL [facility] Clarity, UA Clear [facility] Color, UA Yellow [facility] Glucose, UA Negative Negative - 1999(110) ++++ mg/dL [facility] Interpretation and review of laboratory results Normal [facility] Ketones, UA Negative Negative - 160(16) ++++ mg/dL [facility] Leukocytes, UA Trace Negative - 500+++ Ken/mcL [facility] Nitrite, UA Negative Negative - Positive [facility] pH, UA 8.5 5 - 9 [facility] Protein, UA Negative Negative - 1999(20) ++++ mg/dL [facility] Spec Grav, UA 1.015 1 - 1.03 [facility] Urobilinogen, UA 0.2 0.2 - 12 mg/dL [facility] Urinalysis macro (dipstick) panel (U)on 08-27-2024 Bilirubin, UA Negative Negative - 4(70) +++ mg/dL [facility] Blood, UA Negative Negative - 50 Juanito/mcL [facility] Clarity, UA Clear [facility] Healthcare Color, UA Yellow [facility] Glucose, UA Negative Negative - 1999(110) ++++ mg/dL [facility] Interpretation and review of laboratory results Abnormal [facility] Ketones, UA Negative Negative - 160(16) ++++ mg/dL [facility] Leukocytes, UA Trace Negative - 500+++ Ken/mcL [facility] Nitrite, UA Negative Negative - Positive [facility] pH, UA 6.5 5 - 9 [facility] Protein, UA Negative Negative - 1999(20) ++++ mg/dL [facility] Spec Grav, UA 1.015 1 - 1.03 [facility] Urobilinogen, UA 0.2 0.2 - 12 mg/dL [facility] TSHon 08-20-2024 TSH Qn 1.87 m[IU]/L Normal 0.34-5.60 [facility] Comment on above: Performed By: #### 2 [id number] #### [facility] [address] [place] [address] Urinalysis macro (dipstick) panel (U)on 08-14-2024 Bilirubin, UA Negative Negative - 4(70) +++ mg/dL [facility] Blood, UA Negative Negative - 50 Juanito/mcL [facility] Clarity, UA Clear [facility] Color, UA Yellow [facility] Glucose, UA Negative Negative - 1999(110) ++++ mg/dL [facility] Interpretation and review of laboratory results Abnormal [facility] Ketones, UA Negative Negative - 160(16) ++++ mg/dL [facility] Leukocytes, UA Trace Negative - 500+++ Ken/mcL [facility] Nitrite, UA Negative Negative - Positive [facility] pH, UA 6.5 5 - 9 [facility] Protein, UA Negative Negative - 1999(20) ++++ mg/dL [facility] Spec Grav, UA 1.015 1 - 1.03 [facility] Urobilinogen, UA 0.2 0.2 - 12 mg/dL [facility] Urinalysis macro (dipstick) panel (U)on 07-31-2024 Bilirubin, UA Negative Negative - 4(70) +++ mg/dL [facility] Blood, UA Negative Negative - 50 Juanito/mcL [facility] Clarity, UA Clear [facility] Color, UA Yellow [facility] Glucose, UA Negative Negative - 1999(110) ++++ mg/dL [facility] Interpretation and review of laboratory results Abnormal [facility] Ketones, UA Negative Negative - 160(16) ++++ mg/dL [facility] Leukocytes, UA Positive Negative - 500+++ Ken/mcL [facility] Comment on above: small Nitrite, UA Negative Negative - Positive [facility] pH, UA 6.5 5 - 9 [facility] Protein, UA Negative Negative - 1999(20) ++++ mg/dL [facility] Spec Grav, UA 1.010 1 - 1.03 [facility] Urobilinogen, UA 0.2 0.2 - 12 mg/dL [facility] CBC w/ Auto Diffon 4 Basophils/100 WBC (Bld) 0.4 % Normal 0.0-2.0 [facility] Comment on above: Performed By: #### 2 [id number] #### [facility] [address] [place] [address] Basophils/Leukocytes Auto (Bld) [Pure # fraction] 0.0 E9/L Normal 0.0-0.2 [facility] Comment on above: Performed By: #### 2 [id number] #### [facility] [address] [place] [address] Eosinophils (Bld) [#/Vol] 0.2 E9/L Normal 0.0-0.5 [facility] Comment on above: Performed By: #### 2 [id number] #### [facility] [address] [place] [address] Eosinophils/100 WBC (Bld) 2.9 % Normal 0.0-8.0 [facility] Comment on above: Performed By: #### 2 [id number] #### [facility] [address] [place] [address] Erythrocyte distribution width (RBC) [Ratio] 13.6 % Normal 10.9-14.2 [facility] Comment on above: Performed By: #### 2 [id number] #### [facility] [address] [place] [address] Hematocrit (Bld) [Volume fraction] 37.3 % Normal 34.0-46.0 [facility] Comment on above: Performed By: #### 2 [id number] #### [facility] [address] [place] [address] Hemoglobin (Bld) [Mass/Vol] 12.8 g/dL Normal 12.0-16.0 [facility] Comment on above: Performed By: #### 2 [id number] #### [facility] [address] [place] [address] Lymphocytes (Bld) [#/Vol] 1.9 E9/L Normal 1.0-4.0 [facility] Comment on above: Performed By: #### 2 [id number] #### [facility] [address] [place] [address] Lymphocytes/100 WBC (Bld) 24.0 % Normal 14.0-50.0 [facility] Comment on above: Performed By: #### 2 712105 #### [facility] [address] [place] [address] MCH (RBC) [Entitic mass] 30.5 pg Normal 27.0-34.0 [facility] Comment on above: Performed By: #### 2 [id number] #### [facility] [address] [place] [address] MCHC (RBC) [Mass/Vol] 34.2 g/dL Normal 31.4-36.0 [facility] Comment on above: Performed By: #### 2 [id number] #### [facility] [address] [place] [address] MCV (RBC) [Entitic vol] 89.0 fL Normal 80.0-100.0 [facility] Comment on above: Performed By: #### 2 [id number] #### [facility] [address] [place] [address] Monocytes (Bld) [#/Vol] 0.4 E9/L Normal 0.2-1.0 [facility] Comment on above: Performed By: #### 2 119380 #### [facility] [address] [place] [address] Neutrophils (Bld) [#/Vol] 5.5 E9/L Normal 2.0-7.5 [facility] Comment on above: Performed By: #### 2 [id number] #### [facility] [address] [place] [address] Neutrophils/100 WBC (Bld) 67.8 % Normal 36.0-75.0 [facility] Comment on above: Performed By: #### 2 [id number] #### [facility] [address] [place] [address] Platelet mean volume (Bld) [Entitic vol] 8.3 fL Normal 6.4-10.8 [facility] Comment on above: Performed By: #### 2 [id number] #### [facility] [address] [place] [address] Platelets (Bld) [#/Vol] 267.0 E9/L Normal 150.0-500.0 [facility] Comment on above: Performed By: #### 2 [id number] #### [facility] [address] [place] [address] RBC (Bld) [#/Vol] 4.2 E12/L Low 4.3-5.9 [facility] Comment on above: Performed By: #### 2 [id number] #### [facility] [address] [place] [address] WBC corrected for nucl RBC Auto (Bld) [#/Vol] 8.0 E9/L Normal 4.0-11.0 [facility] Comment on above: Performed By: #### 2 [id number] #### [facility] [address] [place] [address] Free T4on 07-23-2024 Free T4 [Mass/Vol] 0.57 ng/dL Low 0.58-1.64 [facility] Comment on above: Performed By: #### 2 [id number] #### [facility] [address] [place] [address] Lyteson 07-23-2024 Anion gap [Moles/Vol] 12 mmol/L Normal 6-16 [facility] Comment on above: Performed By: #### 2 051979 #### [facility] [address] [place] [address] Chloride [Moles/Vol] 105 mmol/L Normal 101-111 [facility] Comment on above: Performed By: #### 2 584113 #### [facility] [address] [place] [address] CO2 [Moles/Vol] 24 mmol/L Normal 21-31 [facility] Comment on above: Performed By: #### 2 [id number] #### [facility] [address] [place] [address] Potassium [Moles/Vol] 3.5 mmol/L Normal 3.5-5.3 [facility] Comment on above: Performed By: #### 2 717119 #### [facility] [address] [place] [address] Sodium [Moles/Vol] 137 mmol/L Normal 135-145 [facility] Comment on above: Performed By: #### 2 848706 #### [facility] [address] [place] [address] TSHon 07-23-2024 TSH Qn 2.26 m[IU]/L Normal 0.34-5.60 [facility] Comment on above: Performed By: #### 2 476673 #### [facility] [address] [place] [address] Urinalysis macro (dipstick) panel (U)on 07-19-2024 Bilirubin, UA Negative Negative - 4(70) +++ mg/dL [facility] Blood, UA Negative Negative - 50 Juanito/mcL [facility] Clarity, UA Clear [facility] Color, UA Yellow [facility] Glucose, UA Negative Negative - 2000(110) ++++ mg/dL [facility] Interpretation and review of laboratory results Normal [facility] Ketones, UA Negative Negative - 160(16) ++++ mg/dL [facility] Leukocytes, UA Negative Negative - 500+++ Ken/mcL [facility] Nitrite, UA Negative Negative - Positive [facility] pH, UA 6.0 5 - 9 [facility] Protein, UA Negative Negative - 2000(20) ++++ mg/dL [facility] Spec Grav, UA 1.015 1 - 1.03 [facility] Urobilinogen, UA 0.2 0.2 - 12 mg/dL [facility] Urinalysis macro (dipstick) panel (U)on 07-05-2024 Bilirubin, UA Negative Negative - 4(70) +++ mg/dL [facility] Blood, UA Negative Negative - 50 Juanito/mcL [facility] Clarity, UA Clear [facility] Color, UA Yellow [facility] Glucose, UA Negative Negative - 1999(110) ++++ mg/dL [facility] Interpretation and review of laboratory results Abnormal [facility] Ketones, UA Negative Negative - 160(16) ++++ mg/dL [facility] Leukocytes, UA Trace Negative - 500+++ Ken/mcL [facility] Nitrite, UA Negative Negative - Positive [facility] pH, UA 7.5 5 - 9 [facility] Protein, UA Negative Negative - 2000(20) ++++ mg/dL [facility] Spec Grav, UA 1.015 1 - 1.03 [facility] Urobilinogen, UA 0.2 0.2 - 12 mg/dL [facility] CMPon 06-25-2024 Albumin [Mass/Vol] 3.6 g/dL Normal 3.3-5.0 [facility] Comment on above: Performed By: #### 2 [id number] #### [facility] [address] [place] [address] Albumin/Globulin (S) [Mass conc ratio] 1.3 Normal 1.1-2.2 [facility] Comment on above: Performed By: #### 2 165131 #### [facility] [address] [place] [address] ALP [Catalytic activity/Vol] 63 Int._Unit/L Normal 21-98 [facility] Comment on above: Performed By: #### 2 [id number] #### [facility] [address] [place] [address] ALT No additional P-5'-P [Catalytic activity/Vol] 13 Int._Unit/L Normal 6-46 [facility] Comment on above: Performed By: #### 2 068255 #### [facility] [address] [place] [address] Anion gap [Moles/Vol] 10 mmol/L Normal 6-16 [facility] Comment on above: Performed By: #### 2 [id number] #### [facility] [address] [place] [address] AST [Catalytic activity/Vol] 12 Int._Unit/L Normal 5-43 [facility] Comment on above: Performed By: #### 2 [id number] #### [facility] [address] [place] [address] Bilirubin [Mass/Vol] 0.7 mg/dL Normal 0.0-1.1 [facility] Comment on above: Performed By: #### 2 397153 #### [facility] [address] [place] [address] Calcium [Mass/Vol] 8.6 mg/dL Low 8.9-11.1 [facility] Comment on above: Performed By: #### 2 762022 #### [facility] [address] [place] [address] Chloride [Moles/Vol] 104 mmol/L Normal 101-111 [facility] Comment on above: Performed By: #### 2 086521 #### [facility] [address] [place] [address] CO2 [Moles/Vol] 25 mmol/L Normal 21-31 [facility] Comment on above: Performed By: #### 2 859995 #### [facility] [address] [place] [address] Creatinine [Mass/Vol] 0.4 mg/dL Low 0.5-1.3 [facility] Comment on above: Performed By: #### 2 [id number] #### [facility] [address] [place] [address] Globulin (S) [Mass/Vol] 2.8 g/dL Normal 1.4-4.0 [facility] Comment on above: Performed By: #### 2 416128 #### [facility] [address] [place] [address] Glucose [Mass/Vol] 97 mg/dL Normal 55-199 [facility] Comment on above: Performed By: #### 2 [id number] #### [facility] [address] [place] [address] Potassium [Moles/Vol] 3.4 mmol/L Low 3.5-5.3 [facility] Comment on above: Performed By: #### 2 549467 #### [facility] [address] [place] [address] Protein [Mass/Vol] 6.4 g/dL Normal 6.0-7.8 [facility] Comment on above: Performed By: #### 2 576704 #### [facility] [address] [place] [address] Sodium [Moles/Vol] 136 mmol/L Normal 135-145 [facility] Comment on above: Performed By: #### 2 724351 #### [facility] [address] [place] [address] Urea nitrogen [Mass/Vol] 8 mg/dL Normal 5-21 [facility] Comment on above: Performed By: #### 2 225117 #### [facility] [address] [place] [address] Urea nitrogen/Creatinine [Mass ratio] 20 No Units Normal 10-20 [facility] Comment on above: Performed By: #### 2 905796 #### [facility] [address] [place] [address] TSHon 06-25-2024 TSH Qn 3.63 m[IU]/L Normal 0.34-5.60 [facility] Comment on above: Performed By: #### 2 108425 #### [facility] [address] [place] [address] Urinalysis macro (dipstick) panel (U)on 06-25-2024 Bilirubin, UA Negative Negative - 4(70) +++ mg/dL [facility] Blood, UA Negative Negative - 50 Juanito/mcL [facility] Clarity, UA Clear [facility] Color, UA Yellow [facility] Glucose, UA Negative Negative - 2000(110) ++++ mg/dL [facility] Interpretation and review of laboratory results Normal [facility] Ketones, UA Negative Negative - 160(16) ++++ mg/dL [facility] Leukocytes, UA Negative Negative - 500+++ Ken/mcL [facility] Nitrite, UA Negative Negative - Positive [facility] pH, UA 5.5 5 - 9 [facility] Protein, UA Negative Negative - 2000(20) ++++ mg/dL [facility] Spec Grav, UA 1.015 1 - 1.03 [facility] Urobilinogen, UA 1.0 0.2 - 12 mg/dL [facility] eGFRon 06-25-2024 eGFR 142 mL/min/1.73 m2 Normal >=59 [facility] Comment on above: Order Comment: Order added by Discern Expert. Performed By: #### 1 [id number] #### [facility] [address] [place] [address] TSHon 05-31-2024 TSH Qn 1.99 m[IU]/L Normal 0.34-5.60 [facility] Comment on above: Performed By: #### 2 826741 #### [facility] [address] [place] [address] Lipid Panelon 05-09-2024 Cholesterol [Mass/Vol] 170 mg/dL Normal 120-200 [facility] Comment on above: Performed By: #### 2 307071 #### [facility] [address] [place] [address] Cholesterol in HDL [Mass/Vol] 75 mg/dL Invalid Interpretation Code [facility] Comment on above: Result Comment: '>= 60 LOW RISK' '<= 40 HIGH RISK' Performed By: #### 2 551612 #### [facility] [address] [place] [address] Cholesterol in LDL [Mass/Vol] 82 mg/dL Normal <=129 [facility] Comment on above: Performed By: #### 2 931950 #### [facility] [address] [place] [address] Cholesterol in VLDL [Mass/Vol] 15 mg/dL Normal 7-40 [facility] Comment on above: Performed By: #### 2 345043 #### [facility] [address] [place] [address] Triglyceride [Mass/Vol] 76 mg/dL Normal <=149 [facility] Comment on above: Performed By: #### 2 957023 #### [facility] [address] [place] [address] TSHon 05-01-2024 TSH Qn 1.54 m[IU]/L Normal 0.34-5.60 [facility] Comment on above: Performed By: #### 2 456498 #### [facility] [address] [place] [address] Consent for Treatmenton Consent for Treatment [id number] IFF Normal [facility] Physician Orderon 04-04-2024 Physician Order [id number]#1.00 TIFF Normal [facility] TSHon 04-04-2024 TSH Qn 2.73 m[IU]/L Normal 0.34-5.60 [facility] Comment on above: Performed By: #### 2 [id number] #### [facility] [address] [place] [address] XR Spine Cervical 4 or 5 Vie wson 09-16-2023 XR Spine Cervical 4 or 5 Views Exam Date/Time: 09/15/2023 14:47 EST Reason for Exam: S16.1XXA Report IMPRESSION: NEGATIVE CERVICAL SPINE. CLINICAL HISTORY: S16.1XXA. Neck and back pain. COMMENT: 5 views. The cervical spine appears normal without evidence of fracture or subluxation. Ordering Provider: LYNDON WYATT FINAL REPORT Dictated: 09/16/2023 8:02 am Maximo Kurtz M.D. Signed (Electronic Signature): 09/16/2023 8:02 am Signed by: Maximo Kurtz M.D. Transcribed by: MORENO Technologist: JOANNE Technical Comments Radiation Dose: Ka,r in mGy = . DAP = . Normal [facility] XR Spine Thoracic 3 Viewson 09-16-2023 [...] No fracture is noted.. Ordering Provider: LYNDON WYATT FINAL REPORT Dictated: 09/16/2023 8:01 am Maximo Kurtz M.D. Signed (Electronic Signature): 09/16/2023 8:01 am Signed by: Maximo Kurtz M.D. Transcribed by: MORENO Technologist: JOANNE Technical Comments Radiation Dose: Ka,r in mGy = . DAP = . Normal [facility] Physician Orderon 09-15-2023 Physician Order [id number] 0TIFF Normal [facility] Consent for Treatmenton Consent for Treatment [id number] D:127 Normal [facility] US Renalon 07-08-2023 US Renal Exam [...] M.D. Transcribed by: MORENO Technologist: EMILY Chung [facility] XR Abdomen 1 Viewon 07-08-20 XR [...] MORENO Technologist: JOANNE Technical Comments Radiation Dose: Kar in mGy = . DAP = . Normal [facility] Ambulatory Visit Summaryon 0 06-21-2023 Ambulatory Visit Summary EMMY DALE :2000 Visit Date:06/21/2023 Ambulatory Visit Instructions Your Diagnosis Urinary crystals Recurrent UTI Urethral stricture Gross hematuria Tests Performed Urnls Dip Stick Auto w/o Microscopy POC 33044 Your Care Team Attending Physician - SOBEIDA LOAIZA PA-C Primary Care Physician - LYNDON WYATT CNP This Is Your Medications List Contact prescribing physician if questions or concerns busPIRone (busPIRone 10 mg Tab) levothyroxine (Synthroid 25 mcg(0.025 mg) Tab) Procedures Performed Cystourethroscopy with dilation of urethral stricture (07/2021), Extraction of wisdom tooth (2015), Colonoscopy (2012), EGD (esophagogastroduodenos copy) gastric outlet reduction (2012). Discharge Vitals Heart Rate (Peripheral) 74 Blood Pressure 116/82 Height 160 cm Height 63 in Weight 78 kg Weight 171.6 lb BMI 30.47 What to do next You Need to Schedule the Following Appointments Follow Up with SOBEIDA LOAIZA PA-C, URL When: Comments: will call pt. Where: [address] [place] [address] You Need to Complete the Following US Renal, *Est. 06/21/23 due within 1 months, Routine, Order for future visit, Transport Mode: Ambulatory, Reason: Other (please specify), Reason: Kidney Stones, No, Kidney stones, pp_set_radiology_subspe miguel [facility] [place] XR Abdomen 1 View, *Est. 06/21/23 due within 1 months, Routine, Order for future visit, Transport Mode: Ambulatory, Reason: Kidney stone, No, Kidney stones, pp_set_radiology_subspe ciajustin [facility] [place] Medications What How Much When Instructions Unchanged busPIRone (busPIRone 10 mg Tab) 2 times a day Contact prescribing physician if questions or concerns Unchanged levothyroxine (Synthroid 25 mcg(0.025 mg) Tab) Every day Contact prescribing physician if questions or concerns Test Results Urnls Dip Stick Auto w/o Microscopy POC 68928 (06/21/2023) Bilirubin Urine Dipstick - Negative Blood Urine Dipstick - Negative Glucose Urine Dipstick - Negative Ketones Urine Dipstick - Negative Leukocytes Urine Dipstick - Negative Nitrite Urine Dipstick - Negative Protein Urine Dipstick - Negative Specific [place] Urine Dipstick - 1.010 Urine Appearance Urine Dipstick - Clear Urine Color Urine Dipstick - Yellow Urobilinogen Urine Dipstick - Normal 0.2-1 EU/dl pH Urine Dipstick - 6 Allergies sulfa drugs (Rash) Problems Ongoing - Any problem that you are currently receiving treatment for. Dysuria Gross hematuria Annette's disease Kidney stones Labyrinthine dysfunction Pityriasis rosea [...] ? 8 oz (237 mL) of milk, uqmwras-gcrshssbsadu-tw iry milk, and calcium-fortifiedfruit juice. Calcium-fortified means that [...] (more content not included)... Normal [facility] Patient Educationon 06-21-20 Patient Education Nephrology [...] ? 8 oz (237 mL) of milk, fvumcqu-sxiiktggymat-nq iry milk, and calcium-fortifiedfruit juice. Calcium-fortified means that [...] Spinach (cooked), rhubarb, beets, sweet potatoes, and [place]mani chard. ? Peanuts. ? Potato chips, algerian fries, and baked potatoes with skin on. ? Nuts and nut products. ? Chocolate. ? If you regularly take a diuretic medicine, make sure to eat at least 1 or 2 servings of fruits or vegetables that are high in potassium each day. These include: ? Avocado. ? Banana. ? [place], prune, carrot, or tomato juice. ? Baked [...] fish oil, or vitamin B6. ? Take vyyv-cbd-fyycmnu and prescription medicines only as told by your health care provider. These include supplements. What foods should I limit? Limit your in (more content not included)... Normal [facility] Urology Office/Clinic Noteon 06-21-2023 Urology Office/Clinic [...] pass. [place]DELIA and KUB [place] [facility] [place] see if any persistent hydro/any remaining [...] Urnls Dip Stick Auto w/o Microscopy POC 01934 4. Gross hematuria (R31.0: Gross hematuria) CORDELIA [...] understanding. Follow-up With When Contact Information SOBEIDA LOAIZA PA-C, URL [address] [place] [address] Additional Instructions: will call pt. Patient Education Dietary Guidelines to Help Prevent Kidney Stones ILaura, personally scribed for Sobeida Loaiza PA-C on 06/21/2023 12:25:11. . Documentation recorded by the scribmakenzie Lou accurately reflects the services(s) I performed and decisions made by me. Authenticated by Sobeida Loaiza PA-C on 06/21/2023 12:44:22. Problem List/Past Medical History Ongoing Dysuria Gross hematuria Annette's disease Kidney stones Labyrinthine dysfunction Pityriasis rosea Recurrent UTI Tachycardia Thyroid nodule Thyromegaly Urethral stricture Historical Bilateral carpal tunnel syndrome GERD - Gastro-esophageal reflux disease H/O: migraine Procedure/Surgical History Cystour (more content not included)... Normal [facility] Comment on above: Result Comment: Elec tronically Signed By: SOBEIDA LOAIZA PA-C\.br\Date and Time Signed: 06/21/23 12:44 EDT\.br\Electronically Co-Signed By: Laura Lou\.br\Date and Time Co-Signed: 06/21/23 12:25 EDT PAP [id number] 06-07-2023 Cytology report Cyto stain Doc (Cvx/Vag) [...] component) are present. Performed by: Clif Bolaños, Casing Flusher ([facility]) . 01 Note: Note 01 [...] High,A-Abnormal,AA-Critical Abnormal Performed at: 01 [facility] [address] [place] [address] Lisa Ellington MD, Performed at: [facility] [address] [id number] MD Chandana Gonzalez Performed By: #### 3 [id number] ####[facility] [address] [place] [address] Consent for Treatmenton Consent for Treatment [id number] D:127 Normal [facility] Heart and Vascular Office/Cl inic Noteon 06-01-2023 Heart and Vascular Office/Clinic Note History of Present Illness Patient is a very pleasant 22-year-old female with a history of Annette's thyroiditis, recent history of hypotension and dizziness, [...] but unfortunately she was called by the house cleaner and told that it was not working. [...] (more content not included)... Normal [facility] Comment on above: Result Comment: Elec tronically Signed By: SAMUEL VELAZQUEZ, Benjamin Lopez\.br\Date and Time Signed: 06/01/23 14:25 EDT PAP [id number] 06-01-2023 Collection Technique BRUSH-SPATULA Normal [facility] Comment on above: Performed By: #### 3 [id number] ####[facility] [address] [place] [address] Gynecological Body Site ENDOCERVIX Normal [facility] Comment on above: Performed By: #### 3 [id number] ####[facility] [address] [place] [address] Physician Orderon 06-01-2023 Physician Order [id number]#1.00 CD:127 [facility] Physician Order [id number]#1.00C D:127 [facility] C Urineon 05-27-2023 Bacteria identified Cx Nom (U) Microbiology PROCEDURE: Urine Culture [R1] SOURCE: U CleanCatch BODY SITE: COLLECTED DATE/TIME: 05/25/2023 15:25 EDT RECEIVED DATE/TIME: 05/25/2023 16:39 EDT START DATE/TIME: 05/25/2023 16:39 EDT FREE TEXT SOURCE: YOSELIN RAMIREZ, LYNDON WYATT CNP, LYNDON FINAL REPORTS Final Report [] Verified Date/Time: 05/27/2023 08:35 EDT >100,000 cfu/ml Escherichia coli SUSCEPTIBILITY RESULTS ____ LEGEND: S=Susceptible, N/R=Not Reported, Blank=Data not available, or drug not advisable or tested, I=Intermediate, ESBL=Extended spectrum beta-lactamase, R=Resistant, TFG=Thymidine-dependent strain, JAMESON=Beta-lactamase positive, ABRAN=mcg/m;(mg/L), S*=Predicted susceptible interp, R*=Predicted resistant interp ___ EC Antibiotic ABRAN Dilutn ABRAN Interp Amikacin [...] Locations R1: This test was performed at: [facility], [address] [place] [address], [address] , [place], Normal [facility] Comment on above: Performed By: #### 2 197092 ####[address] [address] Consent for Treatmenton 05-01 Consent for Treatment [id number] D:127 Normal [facility] Physician Orderon 05-25-2023 Physician Order [id number]#1.00CD: 127 Normal [facility] Urinalysison 05-25-2023 Bacteria LM Ql (Urine sed) 2+ /HPF Abnormal Trace [facility] Comment on above: Performed By: #### 1 [id number] ####[address] [address] Bilirubin Ql (U) Negative Normal Negative [facility] Comment on above: Performed By: #### 1 [id number] ####[address] [address] Clarity (U) SL CLOUDY Abnormal Clear [facility] Comment on above: Performed By: #### 1 [id number] ####[address] [address] Color (U) YELLOW Normal Yellow [facility] Comment on above: Performed By: #### 1 [id number] ####[address] [address] Crystals LM Ql (Urine sed) Present Normal [facility] Comment on above: Performed By: #### 1 [id number] ####[address] [address] Epithelial cells.squamous LM.HPF (Urine sed) [#/Area] 0-2 Normal 0-2 [facility] Comment on above: Performed By: #### 1 [id number] ####[facility] [address] [place] [address] Glucose Test strip (U) [Mass/Vol] Negative Normal Negative [facility] Comment on above: Performed By: #### 1 [id number] ####[facility] [address] [place] [address] Hemoglobin Ql (U) 2+ Abnormal Negative [facility] Comment on above: Performed By: #### 1 [id number] ####[facility] [address] [place] [address] Ketones (U) [Mass/Vol] Negative Normal Negative [facility] Comment on above: Performed By: #### 1 [id number] ####[facility] [address] [place] [address] [place].plasma/Lithi um.RBC (Bld) [Mass ratio] 0-3 Normal 0-3 [facility] Comment on above: Performed By: #### 1 [id number] ####[facility] [address] [place] [address] Mucus Ql (Urine sed) TRACE Normal [facility] Comment on above: Performed By: #### 1 [id number] ####[facility] [address] [place] [address] Nitrite Ql (U) Positive Abnormal Negative [facility] Comment on above: Performed By: #### 1 [id number] ####[facility] [address] [place] [address] pH (U) 6.0 [pH] Invalid Interpretation Code 5.0-9.0 [facility] Comment on above: Performed By: #### 1 [id number] ####[facility] [address] [place] [address] Protein (U) [Mass/Vol] Negative Normal Negative [facility] Comment on above: Performed By: #### 1 [id number] ####[facility] [address] [place] [address] Specific gravity (U) [Rel density] 1.010 Invalid Interpretation Code 1.005-1.030 [facility] Comment on above: Performed By: #### 1 [id number] ####[place] [address] [place] [id number] Type of Urine collection method Clean Catch Normal [facility] Comment on above: Performed By: #### 1 [id number] ####[place] [address] [place] 6385157 Urobilinogen Qn (U) 0.2 {[place]'U}/dL Normal 0.0-1.0 [facility] [facility] Comment on above: Performed By: #### [id number] ####[place] [address] WBC Auto Ql (U) 1+ Abnormal Negative [facility] Comment on above: Performed By: #### [id number] ####[place] [id number] WBC LM.HPF (Urine sed) [#/Area] 26-30 Abnormal 0-5 [facility] Comment on above: Performed By: #### 1 [id number] ####[place] [id number] Consent for Treatmenton 04-30 Consent for Treatment [id number] D:127 Normal [facility] Consent for Treatmenton Consent for Treatment [id number] D:127 Normal [facility] Heart and Vascular Office/Cl inic Noteon 05-05-2023 Heart and Vascular Office/Clinic Note Patient is a very pleasant 22-year-old female with a history of Annette's thyroiditis, recent history of hypotension and dizziness, [...] (more content not included)... Normal [facility] Comment on above: Result Comment: Elec tronically Signed By: Samuel VELAZQUEZ, Benjamin Lopez\.br\Date and Time Signed: 05/05/23 16:11 EDT Physician Orderon 05-05-2023 Physician Order [id number] CD:127 Normal [facility] Stress EKG Tracingson 2022 Stress EKG Tracings [id number] D:127 Normal [facility] Consent for Treatmenton 03-31 Consent for Treatment [id number] D:127 [facility] Vital Signs Date Time Vital Sign Value Performing Clinician Facility 02-21-2025 08:36-0400 Body weight 83.01 kg [facility] DO Work Phone: [facility] 02-21-2025 08:36-0400 Diastolic blood pressure 70 mm[Hg] [facility] DO Work Phone: [facility] 02-21-2025 08:36-0400 Systolic blood pressure 116 mm[facility]Hg[facility] 02-12-2025 08:51-0400 Body height 159.5 cm Martina Rodriguez MD, PhD Work Phone: [facility] 02-12-2025 08:51-0400 Body mass index (BMI) [Ratio] 33.02 kg/m2 Martina Rodriguez MD, PhD Work Phone: [facility] 02-12-2025 08:51-0400 Body weight 84 kg Martina Rodriguez MD, PhD Work Phone: [facility] 02-12-2025 08:51-0400 Diastolic blood pressure 59 mm[Hg] Martina Rodriguez MD, PhD Work Phone: [facility] 02-12-2025 08:51-0400 Heart rate 66 /min Martina Rodriguez MD, PhD Work Phone: [facility] 02-12-2025 08:51-0400 SaO2% (BldA) [Mass fraction] 100 % Martina Rodriguez MD, PhD Work Phone: [facility] 02-12-2025 08:51-0400 Systolic blood pressure 111 mm[Hg] Martina Rodriguez MD, PhD Work Phone: [facility] 01-02-2025 15:57-0500 Body weight 89.72 kg Dami Ajith DO Work Phone: [facility] 01-02-2025 15:57-0500 Diastolic blood pressure 74 mm[Hg] Dami Ajith DO Work Phone: [facility] 01-02-2025 15:57-0500 Systolic blood pressure 102 mm[Hg] Dami Ajith DO Work Phone: [facility] 12-05-2024 16:10-0500 Body weight 94.35 kg Dami Ajith DO Work Phone: [facility] 12-05-2024 16:10-0500 Diastolic blood pressure 72 mm[Hg] Dami Ajith DO Work Phone: [facility] 12-05-2024 16:10-0500 Systolic blood pressure 120 mm[Hg] Dami Ajith DO Work Phone: [facility] 11-05-2024 11:30-0500 Body weight 98.16 kg Dami Ajith DO Work Phone: [facility] 11-05-2024 11:30-0500 Diastolic blood pressure 70 mm[Hg] Dami Ajith DO Work Phone: [facility] 11-05-2024 11:30-0500 Systolic blood pressure 104 mm[Hg] Dami Ajith DO Work Phone: [facility] 09-10-2024 08:57-0500 Body weight 105.42 kg Dami Ajith DO Work Phone: [facility] 09-10-2024 08:57-0500 Diastolic blood pressure 74 mm[Hg] Dami Ajith DO Work Phone: [facility] 09-10-2024 08:57-0500 Systolic blood pressure 116 mm[Hg] Dami Ajith DO Work Phone: [facility] 09-03-2024 08:55-0500 Body weight 103.33 kg Dami Ajith DO Work Phone: [facility] 09-03-2024 08:55-0500 Diastolic blood pressure 72 mm[Hg] Dami Ajith DO Work Phone: [facility] 09-03-2024 08:55-0500 Systolic blood pressure 118 mm[Hg] Dami Ajith DO Work Phone: [facility] 08-27-2024 08:50-0400 Body weight 104.33 kg Dami Ajith DO Work Phone: [facility] 08-27-2024 08:50-0400 Diastolic blood pressure 68 mm[Hg] Dami Ajith DO Work Phone: [facility] 08-27-2024 08:50-0400 Systolic blood pressure 110 mm[Hg] Dami Ajith DO Work Phone: [facility] 08-14-2024 09:36-0400 Body weight 101.61 kg Dami Ajith DO Work Phone: [facility] 08-14-2024 09:36-0400 Diastolic blood pressure 70 mm[Hg] Dami Ajith DO Work Phone: [facility] 08-14-2024 09:36-0400 Systolic blood pressure 120 mm[Hg] Dami Ajith DO Work Phone: [facility] 07-31-2024 08:55-0400 Body weight 99.34 kg Dami Ajith DO Work Phone: [facility] 07-31-2024 08:55-0400 Diastolic blood pressure 68 mm[Hg] Dami Ajith DO Work Phone: [facility] 07-31-2024 08:55-0400 Systolic blood pressure 112 mm[Hg] Dami Ajith DO Work Phone: [facility] 07-19-2024 15:43-0400 Body weight 97.52 kg Carmen JACOB Work Phone: [facility] 07-19-2024 15:43-0400 Diastolic blood pressure 72 mm[Hg] Carmen JACOB Work Phone: [facility] 07-19-2024 15:43-0400 Systolic blood pressure 118 mm[Hg] Carmen JACOB Work Phone: [facility] 07-05-2024 08:42-0400 Body weight 94.8 kg Dami Ajith DO Work Phone: [facility] 07-05-2024 08:42-0400 Diastolic blood pressure 64 mm[Hg] Dami Ajith DO Work Phone: [facility] 07-05-2024 08:42-0400 Systolic blood pressure 112 mm[Hg] Dami Ajith DO Work Phone: [facility] 06-25-2024 15:16-0400 Body weight 95.62 kg Dami Ajith DO Work Phone: [facility] 06-25-2024 15:16-0400 Diastolic blood pressure 64 mm[Hg] Dami Ajith DO Work Phone: [facility] 06-25-2024 15:16-0400 Systolic blood pressure 102 mm[Hg] Dami Ajith DO Work Phone: [facility] 05-14-2024 09:37-0400 Body height 162.6 cm Shirley Farias MD Work Phone: [facility] 05-14-2024 09:37-0400 Body mass index (BMI) [Ratio] 33.81 kg/m2 Shirley Farias MD Work Phone: [facility] 05-14-2024 09:37-0400 Body weight 89.36 kg Shirley Farias MD Work Phone: [facility] 05-14-2024 09:37-0400 Diastolic blood pressure 72 mm[Hg] Shirley Farias MD Work Phone: [facility] [employer] 05-14-2024 09:37-0400 Heart rate 78 /min Shirley Farias MD Work Phone: [facility] [employer] 05-14-2024 09:37-0400 Systolic blood pressure 108 mm[Hg] Shirley Farias MD Work Phone: [facility] [employer] 09-15-2023 13:30-0500 Body height 162.56 cm Lyndon [employer] Other [employer] Other 09-15-2023 13:30-0500 Body mass index (BMI) [Ratio] 30.21 kg/m2 Lyndon [employer] Other [employer] Other 09-15-2023 13:30-0500 Body weight 79.83 kg Lyndon Easterwood Other [employer] Other 09-15-2023 13:30-0500 Diastolic blood pressure 68 mm[Hg] Lyndon Easterwood Other [employer] Other 09-15-2023 13:30-0500 Respiratory rate 18 /min Lyndon Easterwood Other [employer] Other 09-15-2023 13:30-0500 SaO2% (BldA) [Mass fraction] 99 % Lyndon Easterwood Other [employer] Other 09-15-2023 13:30-0500 Systolic blood pressure 118 mm[Hg] Lyndon Easterwood Other [employer] Other 07-12-2023 09:15-0400 Body height 162.56 cm Lyndon Easterwood Other [employer] Other 07-12-2023 09:15-0400 Body mass index (BMI) [Ratio] 29.86 kg/m2 Lyndon Easterwood Other [employer] Other 07-12-2023 09:15-0400 Body temperature 98.6 [degF] Lyndon Easterwood Other [employer] Other 07-12-2023 09:15-0400 Body weight 78.93 kg Lyndon Easterwood Other [employer] Other 07-12-2023 09:15-0400 Diastolic blood pressure 70 mm[Hg] Lyndon Easterwood Other [employer] Other 07-12-2023 09:15-0400 Respiratory rate 20 /min Lyndon Easterwood Other [employer] Other 07-12-2023 09:15-0400 SaO2% (BldA) [Mass fraction] 98 % Lyndon Easterwood Other [employer] Other 07-12-2023 09:15-0400 Systolic blood pressure 112 mm[Hg] Lyndon Easterwood Other [employer] Other 05-25-2023 17:30-0400 Body height 162.56 cm Lyndon Easterwood Other [employer] Other 05-25-2023 17:30-0400 Body mass index (BMI) [Ratio] 30.04 kg/m2 Lyndon Easterwood Other [employer] Other 05-25-2023 17:30-0400 Body temperature 98.2 [degF] Lyndon Joseerwood Other [employer] Other 05-25-2023 17:30-0400 Body weight 79.38 kg Lyndon Joseerrick Other [employer] Other 05-25-2023 17:30-0400 Diastolic blood pressure 72 mm[Hg] Lyndon Easterwood Other [employer] Other 05-25-2023 17:30-0400 Respiratory rate 20 /min Lyndon Joseerrick Other [employer] Other 05-25-2023 17:30-0400 SaO2% (BldA) [Mass fraction] 99 % Lyndon Wyatt Other [employer] Other 05-25-2023 17:30-0400 Systolic blood pressure 110 mm[Hg] Lyndon Joseerrick Other [employer] Other 03-08-2023 16:13-0400 Body weight 83.92 kg Martina Rodriguez MD, PhD Work Phone: [facility] 03-08-2023 16:13-0400 Diastolic blood pressure 76 mm[Hg] Martina Rodriguez MD, PhD Work Phone: [facility] 03-08-2023 16:13-0400 Systolic blood pressure 116 mm[Hg] Martina Rodriguez MD, PhD Work Phone: [facility] 08-05-2022 16:00-0400 Body height 162.56 cm Lyndon Joseerwood Other [employer] Other 08-05-2022 16:00-0400 Body mass index (BMI) [Ratio] 32.78 kg/m2 Lyndon Wyatt Other [employer] Other 08-05-2022 16:00-0400 Body temperature 98 [degF] Lyndon Joseerwood Other [employer] Other 08-05-2022 16:00-0400 Body weight 86.64 kg Lyndon Wyatt Other [employer] Other 08-05-2022 16:00-0400 Diastolic blood pressure 76 mm[Hg] Lyndon Joseerrick Other [employer] Other 08-05-2022 16:00-0400 Respiratory rate 20 /min Lyndon Wyatt Other [employer] Other 08-05-2022 16:00-0400 SaO2% (BldA) [Mass fraction] 99 % Lyndon Wyatt Other [employer] Other 08-05-2022 16:00-0400 Systolic blood pressure 122 mm[Hg] Lyndon Joseerwood Other [employer] Other Encounters Encounter Date Encounter Type Care Provider Facility Start: 04-17-2025 End: 04-17-2025 Bamboo flowsheet Dami Ajith DO Work Phone: [facility] Start: 04-17-2025 End: 04-17-2025 Bamboo flowsheet Dami Ajith DO Work Phone: [facility] Start: 03-12-2025 End: 03-12-2025 ambulatory [facility] [place] Start: 03-08-2025 End: 03-08-2025 ambulatory [facility] Start: 02-21-2025 End: 02-21-2025 Bamboo flowsheet Dami Ajith DO Work Phone: [facility] Start: 02-21-2025 End: 02-21-2025 Bamboo flowsheet Dami Ajith DO Work Phone: [facility] Start: 02-21-2025 End: 02-21-2025 Office outpatient visit 15 minutes Dami Ajith DO Work Phone: [facility] Comment on above: Hypotension, unspeci fied hypotension type; Dizziness of unknown cause; Near syncope Start: 02-21-2025 End: 02-21-2025 ambulatory DAMI AJITH Not Available Start: 02-12-2025 End: 02-12-2025 ambulatory [facility] Facility:[facility] Start: 02-12-2025 End: 02-12-2025 Patient encounter procedure Martina Rodriguez MD, PhD Work Phone: Endocrinology Comment on above: 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); Hypotension, unspecified hypotension type Start: 01-02-2025 End: 01-02-2025 Office outpatient visit 10 minutes Dami Ajith DO Work Phone: [facility] Comment on above: Encounter for routin e checking of intrauterine contraceptive device (IUD) Start: 01-02-2025 End: 01-02-2025 ambulatory DAMI AJITH Not Available Start: 01-02-2025 End: 01-02-2025 Bamboo flowsheet Dami Ajith DO Work Phone: [facility] Start: 01-02-2025 End: 01-02-2025 Bamboo flowsheet Dami Ajith DO Work Phone: [facility] Start: 12-05-2024 End: 12-05-2024 Patient encounter procedure Dami Ajith DO Work Phone: [facility] Comment on above: Encounter for IUD in sertion Start: 12-05-2024 End: 12-05-2024 ambulatory DAMI AJITH Not Available Start: 11-22-2024 End: 11-22-2024 ambulatory Dami R AJITH [place] Start: 11-05-2024 End: 11-05-2024 care visit Dami Ajith DO Work Phone: [facility] Comment on above: 6 weeks f ollow-up; Thyroid disease (CMS/HCC) Start: 11-05-2024 End: 11-05-2024 ambulatory DAMI AJITH Not Available Start: 09-15-2024 End: 09-15-2024 Clinisync Result Encounter Dami Ajith DO Work Phone: [facility] Unsolicited Start: 09-15-2024 End: 09-15-2024 Clinisync Result Encounter Dami Ajith DO Work Phone: [facility] Unsolicited Start: 09-13-2024 End: 09-13-2024 Clinisync Result Encounter Dami Ajith DO Work Phone: [facility] Unsolicited Start: 09-13-2024 End: 09-13-2024 Clinisync Result Encounter Dami Ajith DO Work Phone: [facility] Unsolicited Start: 09-10-2024 End: 09-10-2024 flow sheet Dami Ajith DO Work Phone: [facility] Comment on above: Third trimester preg vanessa; 37 weeks gestation of Start: 09-10-2024 End: 09-10-2024 ambulatory DAMI AJITH [...] 07-23-2024 End: 07-23-2024 ambulatory Dami R AJITH [place] Start: 07-19-2024 End: 07-19-2024 flow sheet Carmen JACOB Work Phone: [facility] Comment on above: JEFF (amniotic fluid index) borderline low; Thyroid disease (CMS/HCC); History of pre-eclampsia; Third trimester Start: 07-19-2024 End: 07-19-2024 ambulatory CARMEN AGUIAR Not Available Start: 07-19-2024 End: 07-19-2024 Bamboo flowsheet Carmen JACOB Work Phone: [facility] Start: 07-19-2024 End: 07-19-2024 Bamboo flowsheet Carmen Aguiar PA Work Phone: [facility] Start: 07-05-2024 End: 07-05-2024 Bamboo flowsheet Dami Ajith DO Work Phone: [facility] Start: 07-05-2024 End: 07-05-2024 Bamboo flowsheet Dami Ajith DO Work Phone: [facility] Start: 07-05-2024 End: 07-05-2024 flow sheet Dami Ajith DO Work Phone: [facility] Comment on above: 27 weeks gestation o f ; JEFF (amniotic fluid index) borderline low Start: 07-05-2024 End: 07-05-2024 ambulatory DAMI AJITH Not Available Start: 06-25-2024 End: 06-25-2024 flow sheet Dami Ajith DO Work Phone: [facility] Comment on above: Second trimester pre gnancy; Right upper quadrant pain; Low blood potassium; Thyroid disease (CMS/HCC); Hypothyroidism (acquired) (CMS/HCC); Annette's disease (CMS/HCC) Start: 06-25-2024 End: 06-25-2024 ambulatory DAMI AJITH Not Available Start: 06-25-2024 End: 06-25-2024 ambulatory CARMEN AGUIAR [place] Start: 06-12-2024 End: 06-12-2024 ambulatory DAMI R AJITH [facility] Start: 06-04-2024 End: 06-04-2024 ambulatory CARMEN AGUIAR Not Available Start: 05-14-2024 End: 05-14-2024 Office consultation new/estab patient 60 min Shirley Farias MD Work Phone: [facility] Comment on above: 20 weeks gestation o f (Primary Dx); Hypothyroidism affecting in second trimester; History of pre-eclampsia in prior , currently ; Placental abnormality in second trimester Start: 05-14-2024 End: 05-14-2024 ambulatory DAMI R AJITH [facility] Comment on above: Hypothyroidism affec ting in second trimester (Primary Dx) Start: 05-09-2024 End: 05-09-2024 ambulatory Dami R AJITH [place] Start: 05-08-2024 End: 05-08-2024 ambulatory DAMI AJITH Not Available Start: 04-09-2024 End: 04-09-2024 ambulatory DAMI AJITH Not Available Start: 04-06-2024 End: 04-10-2024 Chart abstracting Shirley Farias MD Work Phone: [facility] Start: 04-04-2024 ambulatory Dami R AJITH [place] [facility] Start: 03-12-2024 End: 03-12-2024 ambulatory DAMI AJITH Not Available Start: 02-24-2024 End: 02-24-2024 ambulatory DAMI AJITH Not Available Start: 12-04-2023 End: 12-04-2023 ambulatory Lyndon Wyatt Other [employer] Other Start: 12-04-2023 Encounter by [employer] [facility] Start: 11-05-2023 End: 11-05-2023 ambulatory Lyndon Wyatt Other [employer] Other Start: 11-05-2023 Encounter by [employer] [facility] Start: 10-25-2023 End: 10-25-2023 ambulatory Lyndon Wyatt Facility:[facility] Start: 10-10-2023 End: 10-10-2023 ambulatory Lyndon Easterwood Other [employer] Other Start: 10-10-2023 Telephone encounter Lyndon Easterwood [facility] Start: 09-26-2023 End: 09-26-2023 ambulatory Lyndon Easterwood Other [employer] Other Start: 09-26-2023 Telephone encounter Lyndon Easterwood [facility] Start: 09-18-2023 End: 09-18-2023 ambulatory Lyndon Easterwood Other [employer] Other Start: 09-18-2023 Telephone encounter Lyndon Easterwood [facility] Start: 09-15-2023 End: 09-15-2023 ambulatory LYNDON EASTERWOOD [employer] Other Start: 09-15-2023 Office outpatient vi sit 25 minutes Lyndon Easterwood [facility] Start: 08-05-2023 Get Medical Advice Martina Rodriguez MD, PhD Work Phone: Endocrinology Comment on above: lab orders Start: 07-22-2023 End: 07-22-2023 ambulatory Lyndon Easterwood Other [employer] Other Start: 07-22-2023 Telephone encounter Lyndon Easterwood [facility] Start: 07-12-2023 End: 07-12-2023 ambulatory Lyndon Easterwood Other [employer] Other Start: 07-12-2023 Office outpatient vi sit 25 minutes Lyndon Easterwood [facility] Start: 07-12-2023 Telephone encounter Lyndon Easterwood [facility] Start: 07-08-2023 End: 07-08-2023 ambulatory SOBEIDA LOAIZA [place] Start: 06-27-2023 End: 06-27-2023 ambulatory Lyndon Wyatt Other [employer] Other Start: 06-27-2023 Telephone encounter Lyndon Wyatt [facility] Start: 06-21-2023 End: 06-21-2023 ambulatory SOBEIDA Banegas DONNA Facility: [facility] Start: 06-01-2023 End: 06-01-2023 ambulatory Benjamin BAKER [place] Start: 06-01-2023 End: 06-01-2023 ambulatory Bill Kat Facility[place] Start: 05-25-2023 End: 05-25-2023 [facility] [employer] Other Start: 05-25-2023 Office outpatient vi sit [facility] Start: 05-17-2023 End: 05-17-2023 ambulatory Benjamin BAKER [place] Start: 05-05-2023 End: 05-05-2023 ambulatory Benjamin BAKER [place] Start: 04-15-2023 End: 04-15-2023 ambulatory Benjamin BAKER [place] Start: 03-08-2023 End: 03-08-2023 Patient encounter procedure Martina Rodriguez MD, PhD Work Phone: Endocrinology Comment on above: Annette's thyroidi tis (Primary Dx) Start: 02-28-2023 End: 02-28-2023 ambulatory Lnydon Yoselin Other [employer] [facility] [employer] Other Start: 02-28-2023 Telephone encounter Lyndon Wyatt [facility] Start: 02-21-2023 End: 02-21-2023 ambulatory [employer] Lyndon Wyatt Work Phone: [facility] Work Phone: Start: 02-21-2023 End: 02-21-2023 Discharged Recurring [employer] Lyndon Wyatt Work Phone: [facility] Work Phone: Start: 08-09-2022 End: 08-09-2022 ambulatory Lyndon Wyatt Other [employer] Other Start: 08-09-2022 Telephone encounter Lyndon Wyatt [facility] Start: 08-05-2022 End: 08-06-2022 Emergency department patient visit Lyndon Wyatt Facility:[facility] Start: 08-05-2022 End: 08-05-2022 ambulatory Lyndon Wyatt Other [employer] Other Start: 08-05-2022 Office outpatient vi sit 40 minutes Lyndon Wyatt [facility] Procedures Date Procedure Procedure Detail Performing Clinician Start: 12-05-2024 Urine test visual color cmprsn meths Dami Ajith DO Work Phone: Start: 12-05-2024 IUD INSERTION Dami Bryant io DO Work Phone: Start: 09-15-2024 ALL CBC WITH AUTO DIFF Dami Ajith DO Work Phone: Start: 09-13-2024 [facility] CBC WITH PLATEL ET NO DIFFERENTIAL Dami Ajith DO Work Phone: Start: 09-13-2024 [facility] DRUG SCREEN RAPI D (URINE) Dami Ajith DO Work Phone: Start: 09-10-2024 Urnls dip stick/tabl et rgnt non-auto w/o micrscp Dami Ajith DO Work Phone: Start: 09-03-2024 Urnls dip stick/tabl et rgnt non-auto w/o micrscp Dami Ajith DO Work Phone: Start: 08-27-2024 Urnls dip stick/tabl et rgnt non-auto w/o micrscp Dami Ajith DO Work Phone: Start: 08-14-2024 Urnls dip stick/tabl et rgnt non-auto w/o micrscp Dami Ajith DO Work Phone: Start: 07-31-2024 Urnls dip stick/tabl et rgnt non-auto w/o micrscp Dami Ajith DO Work Phone: Start: 07-19-2024 Urnls dip stick/tabl et rgnt non-auto w/o micrscp Carmen Aguiar PA Work Phone: Start: 07-05-2024 Urnls dip stick/tabl et rgnt non-auto w/o micrscp Dami Ajith DO Work Phone: Start: 06-25-2024 Urnls dip stick/tabl et rgnt non-auto w/o micrscp Dami Ajith DO Work Phone: Start: 04-09-2024 Microscopic observat ion [Identifier] in Cervix by Cyto stain Nara Cabrera RN Plan of Treatment Date Care Activity Detail Author Start: 09-15-2034 Urine microalbumin profile DTa P,Tdap,Td Vaccine (8 - Td or Tdap) [facility] Start: 04-09-2027 Screening for malign ant neoplasm of cervix Pap Smear [facility] Start: 07-15-2025 End: 10-14-2025 Thyrotropin [Units/volume] in Serum or Plasma THYROID STIMULATING HORMONE Lab Routine Hypothyroidism due to Annette's thyroiditis Expected: 07/15/2025, Expires: 10/14/2025 [facility] Comment on above: Expected: 07/15/2025 , Expires: 10/14/2025 Start: 07-15-2025 End: 10-14-2025 Thyroxine (T4) free [Mass/volume] in Serum or Plasma T4 FREE/FREE THYROXINE Lab Routine Hypothyroidism due to Annette's thyroiditis Expected: 07/15/2025, Expires: 10/14/2025 [facility] Comment on above: Expected: 07/15/2025 , Expires: 10/14/2025 Start: 05-14-2025 Adult BMI Screening Adult BMI Screen ing [facility] Start: 05-14-2025 End: 05-14-2025 US MFM with or without consult US MFM with or without consult Imaging Routine Hypothyroidism affecting in second trimester Expected: 05/14/2025 (Approximate), Expires: 05/14/2025 [facility] Work Phone: Comment on above: Expected: 05/14/2025 (Approximate), Expires: 05/14/2025 Start: 04-17-2025 End: 04-17-2025 Patient encounter procedure [facility] Comment on above: Arrived Start: 02-21-2025 End: 02-21-2025 Patient encounter procedure 02/21/2025 8:30 AM EDT Office Visit [facility] [address] [place] [id number] Dami Canseco DO [address] [place] [address] Arrived [facility] Comment on above: Arrived Start: 02-12-2025 End: 05-14-2025 Comprehensive metabolic 2000 panel - Serum or Plasma [facility] Work Phone: Comment on above: Expected: 02/12/2025 , Expires: 05/14/2025 Start: 02-12-2025 End: 05-14-2025 Cortisol [Mass/volume] in Serum or Plasma [facility] Comment on above: Expected: 02/12/2025 , Expires: 05/14/2025 Start: 01-02-2025 End: 01-02-2025 Patient encounter procedure [facility] Comment on above: Arrived Start: 11-05-2024 End: 11-05-2024 ambulatory 11/05/2024 10:30 AM EST Visit [facility] [address] [place] [id number] Carmen Aguiar PA [address] [place] [address] [facility] Start: 09-17-2024 End: 09-17-2024 Patient encounter procedure 09/17/2024 8:40 AM EST Routine [facility] [address] [facility] [place] [id number] Dami Canseco, DO [address] [place] [address] [facility] Start: 09-10-2024 End: 09-10-2024 Patient encounter procedure 09/10/2024 8:40 AM EST Routine [facility] [address] [place] [id number] Dami Canseco, DO [address] [place] [address] [facility] Start: 09-03-2024 End: 09-03-2025 Strep B DNA probe, amplification Strep B DNA probe, amplification Lab Routine 36 weeks gestation of Third trimester Expected: 09/03/2024 (Approximate), Expires: 09/03/2025 [facility] Work Phone: Comment on above: Expected: 09/03/2024 (Approximate), Expires: 09/03/2025 Start: 09-03-2024 End: 09-03-2024 Patient encounter procedure 09/03/2024 8:40 AM EST Routine [facility] [address] [place] [id number] Dami Canseco, DO [address] [place] [address] [facility] Start: 08-27-2024 End: 08-27-2024 Patient encounter procedure 08/27/2024 8:40 AM EDT Routine [facility] [address] [place] [phone] Dami Canseco, DO [address] [place] [address] [facility] Start: 08-14-2024 End: 08-14-2024 Patient encounter procedure [facility] Comment on above: Arrived Start: 08-06-2024 End: 08-06-2024 Professional / ancillary services management 08/06/2024 8:00 AM EDT Ancillary Procedure [facility] [address] [place] [id number] [facility] Start: 07-31-2024 End: 07-31-2024 Patient encounter procedure [facility] Comment on above: Arrived Start: 07-19-2024 End: 07-19-2024 Patient encounter procedure [facility] Comment on above: Arrived Start: 07-19-2024 End: 07-19-2025 US biophysical profile w non stress test US biophysical profile w non stress test Imaging Routine JEFF (amniotic fluid index) borderline low Thyroid disease (CMS/HCC) History of pre-eclampsia Expected: 07/19/2024 (Approximate), Expires: 07/19/2025 [facility] Work Phone: Comment on above: Expected: 07/19/2024 (Approximate), Expires: 07/19/2025 Start: 07-12-2024 End: 07-12-2024 Professional / ancillary services management 07/12/2024 9:00 AM EDT Ancillary Procedure [facility] [address] [place] [id number] [facility] Start: 07-05-2024 End: 07-05-2025 US for US OB AMNIOTIC FLUID VOLUME Imaging Routine JEFF (amniotic fluid index) borderline low Expected: 07/05/2024 (Approximate), Expires: 07/05/2025 [facility] Work Phone: Comment on above: Expected: 07/05/2024 (Approximate), Expires: 07/05/2025 Start: 07-05-2024 End: 07-05-2024 Patient encounter procedure [facility] Comment on above: Arrived Start: 07-05-2024 End: 07-05-2024 Professional / ancillary services management 07/05/2024 8:00 AM EDT Ancillary Procedure [facility] [address] [place] [address] [facility] Start: 07-01-2024 Covid-19 Vaccine ( season) Covid-19 Vaccine () [facility] Start: 07-01-2024 Influenza vaccination [facility] Start: 06-25-2024 End: 06-25-2025 CBC W Auto Differential panel - Blood CBC and differential Lab Routine Low blood potassium Thyroid disease (CMS/HCC) Hypothyroidism (acquired) (CMS/HCC) Annette's disease (CMS/HCC) Expected: 06/25/2024 (Approximate), Expires: 06/25/2025 [facility] Comment on above: Expected: 06/25/2024 (Approximate), Expires: 06/25/2025 Start: 06-25-2024 End: 06-25-2025 Electrolyte panel Electrolyte panel Lab Routine Low blood potassium Thyroid disease (CMS/HCC) Hypothyroidism (acquired) (CMS/HCC) Annette's disease (CMS/HCC) Expected: 06/25/2024, Expires: 06/25/2025 [facility] Comment on above: Expected: 06/25/2024 , Expires: 06/25/2025 Start: 06-25-2024 End: 06-25-2025 Potassium [Moles/volume] in Serum or Plasma Potassium Lab Routine Low blood potassium Thyroid disease (CMS/HCC) Hypothyroidism (acquired) (CMS/HCC) Annette's disease (CMS/HCC) Expected: 06/25/2024, Expires: 06/25/2025 [facility] Work Phone: Comment on above: Expected: 06/25/2024 , Expires: 06/25/2025 Start: 06-25-2024 End: 06-25-2025 Thyrotropin [Units/volume] in Serum or Plasma TSH Lab Routine Low blood potassium Thyroid disease (CMS/HCC) Hypothyroidism (acquired) (CMS/HCC) Annette's disease (CMS/HCC) Expected: 06/25/2024 (Approximate), Expires: 06/25/2025 [facility] Comment on above: Expected: 06/25/2024 (Approximate), Expires: 06/25/2025 Start: 06-25-2024 End: 06-25-2025 Thyroxine (T4) free [Mass/volume] in Serum or Plasma T4, free Lab Routine Low blood potassium Thyroid disease (CMS/HCC) Hypothyroidism (acquired) (CMS/HCC) Annette's disease (CMS/HCC) Expected: 06/25/2024 (Approximate), Expires: 06/25/2025 [facility] Comment on above: Expected: 06/25/2024 (Approximate), Expires: 06/25/2025 Start: 06-12-2024 End: 06-12-2024 Patient encounter procedure 06/12/2024 12:30 PM EDT Appointment [facility] [address] [place] [address] [facility] Start: 05-14-2024 End: 05-14-2024 Patient encounter procedure [facility] Start: 08-08-2023 End: 10-08-2023 Thyrotropin [Units/volume] in Serum or Plasma TSH BLD Lab Routine Annette's thyroiditis Expected: 08/08/2023, Expires: 10/08/2023 [facility] Work Phone: Comment on above: Expected: 08/08/2023 , Expires: 10/08/2023 Start: 08-08-2023 End: 10-08-2023 Thyroxine (T4) free [Mass/volume] in Serum or Plasma T4 FREE/FREE THYROX Lab Routine Annette's thyroiditis Expected: 08/08/2023, Expires: 10/08/2023 [facility] Work Phone: Comment on above: Expected: 08/08/2023 , Expires: 10/08/2023 Start: 07-07-2023 DTaP,Tdap and Td Vac cines (7 - Td or Tdap) DTaP,Tdap and Td Vaccines (7 - Td or Tdap) [facility] Start: 07-07-2023 Urine microalbumin profile [facility] Start: 07-01-2023 Covid-19 Vaccine () Covid-19 Vaccine () [facility] Start: 07-01-2023 Influenza vaccination Influenza Vacc ine (#1) [facility] Start: 03-31-2023 End: 05-31-2023 Thyroglobulin Ab [Units/volume] in Serum or Plasma THYROGLOBULIN AB Lab Routine Annette's thyroiditis Expected: 03/31/2023, Expires: 05/31/2023 [facility] Work Phone: Comment on above: Expected: 03/31/2023 , Expires: 05/31/2023 Start: 03-31-2023 End: 05-31-2023 THYROID PEROXIDASE ANTIBODY BLOOD THYROID PEROXIDASE ANTIBODY BLOOD Lab Routine Annette's thyroiditis Expected: 03/31/2023, Expires: 05/31/2023 [facility] Work Phone: Comment on above: Expected: 03/31/2023 , Expires: 05/31/2023 Start: 03-31-2023 End: 05-31-2023 Thyrotropin [Units/volume] in Serum or Plasma TSH BLD Lab Routine Annette's thyroiditis Expected: 03/31/2023, Expires: 05/31/2023 [facility] Work Phone: Comment on above: Expected: 03/31/2023 , Expires: 05/31/2023 Start: 03-31-2023 End: 05-31-2023 Thyroxine (T4) free [Mass/volume] in Serum or Plasma T4 FREE/FREE THYROX Lab Routine Annette's thyroiditis Expected: 03/31/2023, Expires: 05/31/2023 [facility] Work Phone: Comment on above: Expected: 03/31/2023 , Expires: 05/31/2023 Start: 03-31-2023 End: 05-31-2023 Triiodothyronine (T3) Free [Mass/volume] in Serum or Plasma T3 FREE BLD Lab Routine Annette's thyroiditis Expected: 03/31/2023, Expires: 05/31/2023 [facility] Work Phone: Comment on above: Expected: 03/31/2023 , Expires: 05/31/2023 Start: 10-31-2022 DEPRESSION ASSESSMENT DEPRESSION ASS ESSMENT [facility] Start: 2021 PAP TESTING PAP TESTING [facility] Start: 2021 Screening for malign ant neoplasm of cervix [facility] Start: 02-02-2021 COVID-19 VACCINE (3 - Booster for Pfizer series) COVID-19 VACCINE (3 - Booster for Pfizer series) [facility] Start: 2018 Adult BMI Follow Up Plan Adult BMI Follow Up Plan [facility] Start: 2018 Adult BMI Screening Adult BMI Screen ing [facility] Start: 2018 Anxiety Screening Anxiety Screening [facility] Start: 2018 CHLAMYDIA SCREENING (18-24) CHLAMYDIA SCREENING (18-24) [facility] Start: 2018 Depression Screening Depression Scre ening [facility] Start: 2018 GC (GONORRHEA) SCREE MICHELLE (18-24) GC (GONORRHEA) SCREENING (18-24) [facility] Start: 2018 HEPATITIS C SCREENING HEPATITIS C SC [facility] Start: 2018 Hepatitis C screening Hepatitis C Sc [facility] Start: 2018 HIV SCREENING HIV SCREENING [facility] Start: 2018 HIV screening HIV Screening [facility] Start: 2016 Meningococcal B Vacc ine: Consider Based On Risk (2 of 2 - Risk Bexsero 2-dose series) Meningococcal B Vaccine: Consider Based On Risk (2 of 2 - Risk Bexsero 2-dose series) [facility] Start: 2016 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 (2 of 2 - Risk Bexsero 2-dose series) MENINGOCOCCAL B: Consider based on risk (2 of 2 - Risk Bexsero 2-dose series) [facility] Start: 2014 PEDS TO ADULT TRANSI TION ANNUAL ASSESSMENT PEDS TO ADULT TRANSITION ANNUAL ASSESSMENT [facility] Start: 2012 Depression Screening Depression Scre ening [facility] Start: 2012 PEDS TO ADULT TRANSI TION INITIAL DISCUSSION PEDS TO ADULT TRANSITION INITIAL DISCUSSION [facility] Start: 2012 Tobacco Screening Tobacco Screening [facility] Start: 2000 Screening for Chlamy myrtle trachomatis Chlamydia Screening [facility] End: 05-14-2025 Thyroid profile includes TSH FT4 Thyroid profile includes TSH FT4 Lab Routine 20 weeks gestation of Hypothyroidism affecting in second trimester 1 Occurrences starting 05/14/2024 until 05/14/2025 [facility] Work Phone: Comment on above: 1 Occurrences starti ng 05/14/2024 until 05/14/2025 Thyrotropin [Units/v olume] in Serum or Plasma TSH Lab Routine 6 weeks follow-up Thyroid disease (CMS/HCC) Ordered: 11/05/2024 [facility] Work Phone: Comment on above: Ordered: 11/05/2024 [facility] Immunizations Immunization Date Immunization Notes Care Provider Milady vivas 07-19-2022 influenza, injectabl e, quadrivalent, contains preservative Lyndon Easterwood Other [employer] Other 07-19-2022 influenza virus vaccine, unspecified formulation Martina Rodriguez MD, PhD Work Phone: [facility] 12-08-2020 Do not use COVID-19 Pfizer 2 dose Lyndon Easterwood Other [employer] Other 11-17-2020 Do not use COVID-19 Pfizer 2 dose Lyndon Easterwood Other [employer] Other 07-31-2020 influenza, injectabl e, quadrivalent, contains preservative Lyndon Easterwood Other [employer] Other 10-18-2016 influenza, injectabl e, quadrivalent, contains preservative Martina Rodriguez MD, PhD Work Phone: [facility] 10-18-2016 influenza virus vaccine, unspecified formulation Shirley Farias MD Work Phone: [facility] 08-04-2015 influenza, injectabl e, quadrivalent, contains preservative Martina Rodriguez MD, PhD Work Phone: [facility] 04-23-2014 human papilloma viru s vaccine, quadrivalent Martina Rodriguez MD, PhD Work Phone: [facility] 09-29-2013 human papilloma viru s vaccine, quadrivalent Martina Rodriguez MD, PhD Work Phone: [facility] 07-07-2013 human papilloma viru s vaccine, quadrivalent Martina Rodriguez MD, PhD Work Phone: [facility] 07-07-2013 meningococcal polysaccharide (groups A, C, Y and W-135) diphtheria toxoid conjugate vaccine (MCV4P) Martina Rodriguez MD, PhD Work Phone: [facility] Work Phone: 07-07-2013 tetanus toxoid, redu ollie diphtheria toxoid, and acellular pertussis vaccine, adsorbed Martina Rodriguez MD, PhD Work Phone: [facility] 08-04-2009 influenza virus vaccine, unspecified formulation Martina Rodriguez MD, PhD Work Phone: [facility] 07-05-2008 hepatitis A vaccine, unspecified formulation Martina Rodriguez MD, PhD Work Phone: [facility] 09-09-2007 influenza virus vaccine, unspecified formulation Martina Rodriguez MD, PhD Work Phone: [facility] Work Phone: 06-19-2007 hepatitis A vaccine, unspecified formulation Martina Rodriguez MD, PhD Work Phone: [facility] 06-19-2007 varicella virus vaccine Parth Rodriguez MD, PhD Work Phone: [facility] 09-14-2006 influenza virus vaccine, unspecified formulation Martina Rodriguez MD, PhD Work Phone: [facility] 05-13-2006 diphtheria, tetanus toxoids and acellular pertussis vaccine Martina Rodriguez MD, PhD Work Phone: [facility] Work Phone: 05-13-2006 measles, mumps and rubella virus vaccine Martina Rodriguez MD, PhD Work Phone: [facility] Work Phone: 05-13-2006 poliovirus vaccine, inactivated Martina Rodriguez MD, PhD Work Phone: [facility] Work Phone: 05-13-2006 varicella virus vaccine Parth Rodriguez MD, PhD Work Phone: [facility] Work Phone: 07-26-2005 influenza virus vaccine, unspecified formulation Martina Rodriguez MD, PhD Work Phone: [facility] Work Phone: 07-30-2004 influenza virus vaccine, unspecified formulation Martina Rodriguez MD, PhD Work Phone: [facility] Work Phone: 06-30-2002 diphtheria, tetanus toxoids and acellular pertussis vaccine Martina Rodriguez MD, PhD Work Phone: [facility] Work Phone: 06-30-2002 poliovirus vaccine, inactivated Martina Rodriguez MD, PhD Work Phone: [facility] Work Phone: 04-04-2002 haemophilus influenz ae type b vaccine, HbOC conjugate Martina Rodriguez MD, PhD Work Phone: [facility] Work Phone: 04-04-2002 measles, mumps and rubella virus vaccine Maritna Rodriguez MD, PhD Work Phone: [facility] Work Phone: 12-16-2001 hepatitis B vaccine, pediatric or pediatric/adolescent dosage Martina Rodriguez MD, PhD Work Phone: [facility] Work Phone: 12-16-2001 pneumococcal conjuga te vaccine, 7 valent Martina Rodriguez MD, PhD Work Phone: [facility] Work Phone: 09-30-2001 pneumococcal conjuga te vaccine, 7 valent Martina Rodriguez MD, PhD Work Phone: [facility] Work Phone: 06-24-2001 diphtheria, tetanus toxoids and acellular pertussis vaccine Martina Rodriguez MD, PhD Work Phone: [facility] Work Phone: 06-24-2001 haemophilus influenz ae type b vaccine, HbOC conjugate Martina Rodriguez MD, PhD Work Phone: [facility] Work Phone: 06-24-2001 pneumococcal conjuga te vaccine, 7 valent Martina Rodriguez MD, PhD Work Phone: [facility] Work Phone: 04-12-2001 diphtheria, tetanus toxoids and acellular pertussis vaccine Martina Rodriguez MD, PhD Work Phone: [facility] Work Phone: 04-12-2001 haemophilus influenz ae type b vaccine, HbOC conjugate Martina Rodriguez MD, PhD Work Phone: [facility] Work Phone: 04-12-2001 poliovirus vaccine, inactivated Martina Rodriguez MD, PhD Work Phone: [facility] Work Phone: 02-03-2001 diphtheria, tetanus toxoids and acellular pertussis vaccine Martina Rodriguez MD, PhD Work Phone: [facility] Work Phone: 02-03-2001 haemophilus influenz ae type b vaccine, HbOC conjugate Martina Rodriguez MD, PhD Work Phone: [facility] Work Phone: 02-03-2001 poliovirus vaccine, inactivated Martina Rodriguez MD, PhD Work Phone: [facility] Work Phone: 2000 hepatitis B vaccine, pediatric or pediatric/adolescent dosage Martina Rodriguez MD, PhD Work Phone: [facility] Work Phone: 2000 hepatitis B vaccine, pediatric or pediatric/adolescent dosage Martina Rodriguez MD, PhD Work Phone: [facility] Work Phone: Payers Date Payer Category Payer Self-pay [id number] 2024 Private Health Insurance [id number] 2024 Unknown [id number] 2023 Unknown [id number] 2022 Private Health Insurance [id number] 2022 Self-pay 2020 Private Health Insurance [id number]. [id number] 2000 Unknown [id number] 2.16.840.1.042028.3.579.2.727 2000 Unknown [id number] 2.16.840.1.587328.3.579.2.727 2000 Unknown [id number] 2.16.840.1.211835.3.579.2.727 2000 Unknown [id number] 2.16.840.1.164520.3.579.2.727 2000 Unknown [id number] 2.16.840.1.944614.3.579.2.727 2000 Unknown [id number] 2.16.840.1.425936.3.579.2.727 2000 Unknown [id number] 2.16.840.1.968938.3.579.2.727 2000 Unknown [id number] 2.16.840.1.197566.3.579.2.727 2000 Unknown [id number] 2.16.840.1.238479.3.579.2.727 2000 Unknown [id number] 2.16.840.1.591521.3.579.2.727 2000 Unknown [id number] 2.16.840.1.421530.3.579.2.727 2000 Unknown [id number] 2.16.840.1.494047.3.579.2.1286 2000 Unknown [id number] 2.16.840.1.008380.3.579.2.1286 2000 Unknown [id number] 2.16.840.1.625525.3.579.2.1286 2000 Unknown [id number] 2.16.840.1.970032.3.579.2.7 2000 Unknown [id number] 2.16.840.1.183879.3.579.2.7 2000 Unknown [id number] 2.16840.1.139746.3.579.2.7 2000 Unknown [id number] 2.16.840.1.600269.3.579.2.727 2000 Unknown [id number] 2.16.840.1.927462.3.579.2.7 2000 Unknown [id number] 2.16.840.1.409956.3.579.2.7 2000 Unknown [id number] 2.16840.1.597883.3.579.2.727 2000 Unknown [id number] 2.16.840.1.181831.3.579.2.9 2000 Unknown [id number] 2.16.840.1.725780.3.579.2.9 2000 Unknown [id number] 2.16.840.1.878179.3.579.2.9 2000 Unknown [id number] 2.16.840.1.958343.3.579.2.9 2000 Unknown [id number] 2.16.840.1.135074.3.579.2.9 2000 Unknown [id number] 2.16.840.1.829562.3.579.2.1258 2000 Unknown [id number] 2.16.840.1.298648.3.579.2.1258 2000 Unknown [id number] 2.16.840.1.057130.3.579.2.1258 2000 Unknown [id number] 2.16.840.1.998345.3.579.2.1258 2000 Unknown [id number] 2.16840.1.656232.3.579.2.1258 2000 Unknown [id number] 2.16840.1.865895.3.579.2.1258 2000 Unknown [id number] 2.840.1.225547.3.579.2.1258 2000 Unknown [id number] 2.840.1.491036.3.579.2.1258 2000 Unknown [id number] 2.16840.1.393476.3.579.2.1258 2000 Unknown [id number] 2.16840.1.735976.3.579.2.1258 2000 Unknown [id number] 2.16840.1.334304.3.579.2.1258 2000 Unknown [id number] 2.16840.1.215995.3.579.2.1258 2000 Unknown [id number] 2.840.1.779919.3.579.2.727 Private Health Insurance [id number] 2.840.1.336015.19 Private Health Insurance [facility] [id number] Unknown [id number] 2.16840.1.241872.3.579.2.531 Unknown [facility] Employees [id number] Unknown [id number] 2.16.840.1.766450.3.579.2.531 Social History Date Type Detail Facility Start: 03-08-2023 End: 07-05-2024 Sex Assigned At [facility] Other Start: 09-27-2014 End: 07-05-2024 Tobacco smoking status NHIS Never smoked tobacco [facility] History of tobacco use Passive smoker [facility] Start: 03-08-2023 End: 02-12-2025 Alcohol intake Not Asked [facility] Start: 2000 Sex Assigned At Not on file [facility] Start: 2000 Sex Assigned At Female F [facility] Start: 03-08-2023 End: 07-05-2024 History of Social function [facility] Start: 05-14-2024 End: 07-05-2024 Tobacco use and exposure Smokeless tobacco non-user [facility] Start: 07-19-2024 End: 02-21-2025 Alcoholic beverage intake Ex-drinker (finding) [facility] Start: 01-06-2024 [facility] Tobacco smoking status NHIS Tobacco smoking consumption unknown [facility] Within the past 12 months we worried whether our food would run out before we got money to buy more. Never True [facility] Functional Status Date Assessment Result Facility 04-30-2015 Are you deaf, or do you have serious difficulty hearing No 04/30/2015 1:42 PM Christine Sosa, Research Coordinator No [facility] 04-30-2015 Are you blind, or do you have serious difficulty seeing, even when wearing glasses No 04/30/2015 1:42 PM Christine Sosa, Research Coordinator No [facility] 04-30-2015 Do you have serious difficulty walking or climbing stairs No 04/30/2015 1:42 PM Christine Sosa, Research Coordinator No [facility] 04-30-2015 Do you have difficul ty dressing or bathing No 04/30/2015 1:42 PM EDT Christine Hernández, Research Coordinator No [facility] Mental Status Date Assessment Result Facility 04-30-2015 Because of a physica l, mental, or emotional condition, do you have serious difficulty concentrating, remembering, or making decisions No 04/30/2015 1:42 PM EDT Christine Hernández, Research Coordinator No [facility] Clinical Notes 09-09-2009 to 03-13-2025 Rhoda Ortiz LPN - 02/21/2025 8:30 AM Martina Machado MD, PhD - 02/12/2025 9:49 AM Isabel Hayes MA - 02/12/2025 8:55 AM Deena Kelly NP - 01/02/2025 3:40 PM EST Note Date & Type Note Facility 03-13-2025 Note Echocardiology Procedure Exam Date/Time Accession # Ordering Echo Transthoracic 03/12/2025 15:45 EDT [id number] TAL DAVILA CPT code [id number] Reason for Exam (Echo Transthoracic Complete) Palpitations R00.2 [place] [address] Adult Echocardiogram Report Name: EMMY DALE Study Date: 03/12/2025 03:09 PM BP: 102/69 mmHg Patient Location: [facility] Ambulatory([place] [facility] [place]: 68 : 2000 Gender: Female Height: 64 in Age: 24 yrs Ethnicity: T Weight: 180 lb Reason For Study: Palpitations R00.2 BSA: 1.9 m2 History: Hypotension, Annette's, Tachycardia Performed By: Jonelle Alvarez, HERMINIO Interpretation Summary The left ventricle is normal in size. There is normal left ventricular wall thickness. Ejection Fraction = 55-60%. No obvious regional wall motion abnormalities noted Normal diastolic function. Procedure A complete two-dimensional transthoracic echocardiogram was performed (2D, M-mode, spectral and color flow Doppler). Study quality is fair. Left Ventricle The left ventricle is normal in size. There is normal left ventricular wall thickness. The left ventricular ejection fraction is normal. Ejection Fraction = 55-60%. No obvious regional wall motion abnormalities noted. Normal diastolic function. Left Atrium Echocardiology Report The left atrium is grossly normal. Right Atrium The right atrium is grossly normal. Right Ventricle The right ventricular systolic function is normal. Aortic Valve The aortic valve is grossly normal. Mitral Valve The mitral valve is grossly normal. Tricuspid Valve Anatomically normal tricuspid valve. There is trace tricuspid regurgitation. Right ventricular systolic pressure is normal. Pulmonic Valve Trace pulmonic valvular regurgitation. Arteries The aortic root is normal in size. Venous The inferior vena cava was not visualized during the exam. Effusion There is no pericardial effusion. MMode/2D Measurements & Calculations RVDd: 2.1 cm LVIDd: 5.1 cm FS: 27.1 % Ao root diam: 2.6 cm IVSd: 0.81 cm LVIDs: 3.7 cm EDV(Teich): 126.1 ml LVPWd: 0.68 cm ESV(Teich): 59.9 ml Ao root area: 5.3 cm2 EF(Teich): 52.5 % LA dimension: 3.3 cm asc Aorta Diam: 2.4 cm LVOT diam: 2.1 cm LVLd ap4: 8.3 cm EDV(MOD-sp2): 140.0 ml LVOT area: 3.4 cm2 EDV(MOD-sp4): 106.0 ml ESV(MOD-sp2): 48.6 ml LVLs ap4: 7.1 cm EF(MOD-sp2): 65.3 % ESV(MOD-sp4): 50.6 ml EF(MOD-sp4): 52.3 % SV(MOD-sp4): 55.4 ml TAPSE: 2.0 cm Ao Sinus of Valsalva: 2.9 cm Ao Sinotubular Junction: 2.3 cm IVC Diam: 1.7 cm RVIDd/LVIDd: 0.41 EF (MOD-bp): 59.5 % LA Vol Index: 19.1 ml/m2 Doppler Measurements & Calculations MV E max leighton: 73.7 cm/sec MV dec time: 0.19 sec Ao V2 max: 116.2 cm/sec LV V1 max P.9 mmHg Echocardiology Report MV A max leighton: 42.0 cm/sec Ao max P.4 mmHg LV V1 max: 84.8 cm/sec MV E/A: 1.8 Lat Peak E' Leighton: 21.4 cm/sec FARZANEH(V,D): 2.5 cm2 E/E' Lat: 3.4 Med Peak E' Leighton: 16.1 cm/sec E/E' Med: 4.6 TR max leighton: 232.7 cm/sec RAP systole: 3.0 mmHg AV VR: 0.73 TR max P.7 mmHg RVSP(TR): 24.7 mmHg FINAL REPORT Dictated: 03/12/2025 3:09 pm Maury Tello MD Signed (Electronic Signature): 03/13/2025 12:35 pm Signed by: Maury Tello MD Transcribed by: ZUHAIR Technologist: DEBBIE [facility] 03-08-2025 Note [facility] Note Reason for cardiology consult: Dizziness and palpitations Chief Complaint: Dizziness and palpitations HPI: Emmy Dale is a 24 y.o. female history of Annette disease, hypothyroidism, and asthma. She had preeclampsia with her first baby Patient states that she feels she has foggy brain and weird vision when she wakes up in the morning. She reports that started about 4 months after she delivered her last baby in August 2024. She had some similar symptoms after delivering the first baby but they were much milder. She had Annette's prior to the second baby but that was not associated with similar symptoms and in any case she felt very good after she was started on Synthroid, she did well during the without any symptoms but she required increasing Synthroid dose during it. She reports also that during the night she feels extra drowsy. Also when she stands up she feels dizzy. She reports that her blood pressure when she wakes up in the morning is about 80-90/40-50 and during the daytime around 102/60. She denies any other symptoms such as chest pain or shortness of breath at rest or with exertion. She has denies orthopnea or paroxysmal nocturnal dyspnea or legs edema or legs discomfort on exertion. She reports that her heart rate goes up when she stands up from around 80s to 110. She reports occasional palpitations but short lasting. She denies snoring, never been told that she stops breathing during the night, she wakes up about 3-4 times during the night . She reports that when she was about 12 years old she used to have syncope and she was told it was probably vasovagal She drinks 2 cups of coffee a day. She does not drink any iced tea or any soda. She drinks about 80 ounces of water a day. She denies smoking, alcohol or illicit drugs. Reports that she had as part of the workup cortisol level and ACTH level and they were normal Cardiology ROS: GENERAL: Denies fever, chills, night sweats, weight loss. HEENT: Denies changes in vision, photophobia, changes in hearing, epistaxis, oral bleeding. CARDIOVASCULAR: Denies chest pain, exertional dyspnea, orthopnea/PND, lower extremity edema, palpitations, she admits lightheadedness/dizziness as described above. RESPIRATORY: Denies SOB, coughing, wheezing GI: Denies abdominal pain, nausea/vomiting, heartburn, melena/hematochezia. RENAL: Denies dysuria, hematuria, flank pain. MSK: Denies muscle weakness/pain, arthralgias/joint pain. NEUROLOGIC: Denies LOC, weakness, numbness, headaches. SKIN: Denies abnormal rashes or bleeding. PSYCH: Denies significant anxiety, depression, sleep disturbances. Past Medical History She has a past medical history of Asthma, Annette's disease, Hypertension, and Hypothyroid. Surgical History She has no past surgical history on file. Social History She reports that she has never smoked. She has never used smokeless tobacco. She reports that she does not currently use alcohol. She reports that she does not use drugs. Family History Family History Problem Relation Name Age of Onset Hyperlipidemia Mother Heart failure Father Hyperlipidemia Father Hypertension Father Rheum arthritis Father Thyroid disease Sister Thyroid disease Mother's Sister Asthma Mother's Brother Cancer Maternal Grandmother Stroke Maternal Grandmother Thyroid cancer Maternal Grandmother Diabetes Maternal Grandfather Heart failure Maternal Grandfather Hypertension Maternal Grandfather Diabetes Paternal Grandmother Allergies Sulfa (sulfonamide antibiotics) Medications Current Outpatient Medications: levothyroxine (Synthroid, Levoxyl) 50 mcg tablet, Take 50 mcg by mouth before breakfast., Disp: , Rfl: aspirin 81 mg EC tablet, Take 81 mg by mouth in the morning., Disp: , Rfl: DOCOSAHEXAENOIC ACID ORAL, Take 1 tablet by mouth in the morning., Disp: , Rfl: Last Recorded Vitals Visit Vitals BP 102/62 (BP Location: Right arm, Patient Position: Sitting) Pulse 83 Ht 1.626 m (5' 4 ) Wt 81.6 kg (180 lb) SpO2 98% BMI 30.90 kg/m??? OB Status Injection Smoking Status Never BSA 1.92 m??? Physical Examination: GENERAL: alert and oriented x3, well developed, in no acute distress. HEAD: atraumatic, normocephalic. EYES: HAILE, EOMI. NECK: trachea midline, no JVD present, no carotid bruits present. CARDIAC: S1, S2 present. RRR. No murmur, rubs, or gallops. RESPIRATORY: CTAB, no increased effort of breathing, no rales, rhonchi, or wheezing. ABDOMEN: soft, nontender, nondistended. EXTREMITIES: no lower extremity edema, peripheral pulses are 2+ bilaterally. No rash/skin discoloration present. NEURO: strength/sensation equal and symmetric in bilateral upper and lower extremities. PSYCH: appropriate mood, affect, and judgement. Labs: 06/11/2024 White blood count 7.3, hemoglobin 12.2, hematocrit 36.3, platelets 247 Sodium 138, p (more content not included)... [facility] 02-21-2025 History of Present illness Narrative Reason for Appointment: Patient ID: Emmy Dale is a 24 y.o. female who presents for Hypertension (Pt present today due to having blood pressure issues along w/dizziness after giving . Pt delivered on 09/14/2024.) Patient presents today for Consult appointment. MEDICATIONS Current Outpatient Medications Medication Instructions levothyroxine (SYNTHROID) 50 mcg, Oral, Daily before breakfast Azrngsfy-Kjb-Kc-FA ( 1 + IRON PO) ALLERGIES Allergies Allergen Reactions Sulfa Antibiotics Hives and Rash Other Reaction(s): Unknown Other Reaction(s): Rash Other Reaction(s): hives PROBLEMS Active Ambulatory Problems Diagnosis Date Noted JEFF (amniotic fluid index) borderline low 07/05/2024 Hypothyroidism (CMS/HCC) Annette's disease (CMS/HCC) Hypertension (CMS/HCC) Resolved Ambulatory Problems Diagnosis Date Noted 27 weeks gestation of 07/05/2024 Past Medical History: Diagnosis Date Asthma As a child Urinary tract infection As a teen HISTORY PAST MEDICAL HISTORY SOCIAL HISTORY Past Medical History: Diagnosis Date Asthma As a child Annette's disease (CMS/HCC) Hypertension (CMS/HCC) Gestational Hypothyroidism (CMS/HCC) [...] Genitourinary: Negative. Musculoskeletal: Negative. Skin: Negative. Neurological: Positive for dizziness and light-headedness. All other systems reviewed and are negative. [...] nursing note reviewed. Exam conducted with a data mining analyst present. Vitals: There is no height or weight on file to calculate BMI. BP: 116/70 No LMP recorded (lmp unknown). Patient has had an implant. ASSESSMENT & PLAN ICD-10-CM 1. Hypotension, unspecified hypotension type I95.9 2. Dizziness of unknown cause R42 3. Near syncope R55 Patient presents today for BP issues after delivery. Patient stated this happened about 4 months after her previous delivery. Patient states when she lays down her b/p goes to 80/60 or 90/60 and when she is moving around or sitting she is at normal b/p. Pt states she feels real fuzzy and lightheaded, vision feels like everything is slow, and foggy when she drives in the morning. Pt was advised by her PCP to see a Neurologist however, patient is in office to see if Dr. Canseco has a second opinion over this matter. Informed patient that this would not be due to post as she is past post phase. Patient voiced that she has seen insurance auditor and Holter monitor did not work, so workup was not completed. Discussed with patient workup with Neuro and Cardiology for POTS. Patient is having palpitations and near scope episodes. Will refer patient to Cardiology @[facility] and recommend that patient also see Neurologist. Patient sees Advisory Software Engineer in July. Patient to follow up with PCP to see their thoughts and see if they desire to send patient to Neurology. Patient to return to clinic in March for annual. Documented by Rhoda Ortiz LPN on behalf of: Dami Canseco DO documented in this encounter [facility] 02-12-2025 Note HNO ID: [id number] Author: MARTINA RODRIGUEZ MD, PhD Service: ? Author Type: Physician Type: Progress Notes Filed: 02/12/2025 12:52 Note Text: Ms. Dale is here today for my opinion regarding some non specific symptoms that she has been experiencing. 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 She is currently taking LT4 50 mcg daily as prescribed (dose was up to ~ 100 mcg daily during ). She delivered her second baby around mid August 2024 She reports episodic low BP and dizziness. Other symptoms listed in ROS Neck pressure symptoms. No H/O exposure to ionizing radiation to the head and neck. No H/O Thyroid cancer in one or more first degree relatives. No H/O Prior Thyroid surgery. No Review of Systems Constitutional: Positive for fatigue. Negative for night sweats and recent unintentional weight change. HENT: Negative for trouble swallowing, postnasal drip and thyroid pain (lower neck). Eyes: Positive for visual disturbance. Respiratory: Negative for difficulty breathing. Cardiovascular: Negative for chest pain, leg swelling and claudication. Gastrointestinal: Positive for constipation. Negative for heartburn, nausea, vomiting, abdominal pain and diarrhea. Genitourinary: Positive for irregular menses. Negative for urgency, frequent urination, slower stream, menstruating and amenorrhea. Musculoskeletal: Positive for myalgias. Negative for muscle weakness and bone pain. Skin: Positive for skin color changes. Neurological: Positive for dizziness and headaches. Negative for numbness. Endo/Heme/Allergies: Positive for flushing. Negative for polydipsia, cold intolerance when others are comfortable, heat intolerance when others are comfortable, hot flashes and changes in body hair. Answers submitted by the patient for this visit: Endocrine Review of Systems (Submitted on 02/05/2025) Fatigue: Yes Night sweats: No Recent unintentional weight change: No Skin Color Changes: Yes Post-Nasal Drip: No Thyroid Pain (lower neck): No Trouble Swallowing: No Vision Disturbance: Yes Chest pain: No Leg Swelling: No Blood Clots?: No Leg Pain while walking?: No Difficulty Breathing?: No Heartburn: No Nausea: No Vomiting: No Diarrhea: No Constipation: Yes Abdominal pain: No Bone Pain?: No Muscle aches: Yes Muscle weakness: No Joint pain or stiffness: Yes Headaches: Yes Dizziness: Yes Numbness?: No Urgency to Urinate?: No Increased Urination: No Slow or Small Urine Stream?: No Are your menstrual cycles regular?: No Are your menstrual cycles irregular?: Yes Have your menstrual cycles stopped?: No Flushing: Yes Hot Flashes?: No Increased Thirst: No Change in Body Hair?: No Cold Intolerance: No Heat Intolerance: No PAST MEDICAL HISTORY Diagnosis Date Unspecified asthma(493.90) Social History: Social History Tobacco Use Smoking status: Never Passive exposure: Yes FAMILY HISTORY Problem Relation Age of Onset [...] Arthritis Father in blood . was at [facility] when baby thought to be related to neuro problems. Current Outpatient Medications Medication Sig levothyroxine (SYNTHROID) 50 mcg tablet TAKE 1 TABLET BY MOUTH ONCE DAILY IN THE MORNING BEFORE MEAL(S) PNV#75-Iron [id number]-[id number] (ONE DAILY ) [id number] mg-mcg-mg cmpk Take 1 tablet by mouth once daily. levothyroxine (SYNTHROID) 25 mcg tablet Take 1 tablet by mouth once daily. BIOTIN ORAL Take by mouth q 24 HR. calcium carb/magnesium carb (CALCIUM AND MAGNESIUM CARBONATES ORAL) Calcium AND Magnesium Carbonates 1000MG and 500MG - one capsule daily, OTC Active IODINE ORAL Iodine 225MCG capsule daily, OTC Active MULTI-VITAMIN ORAL Multivitamin OTC, daily Active vit no.124/iron/folic ( VITAMIN ORAL) Vitamins OTC, maria del carmen (more content not included)... [facility] 02-12-2025 History of Present illness Narrative Ms. Dale is here today for my opinion regarding some non specific symptoms that she has been experiencing. 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 She is currently taking LT4 50 mcg daily as prescribed (dose was up to ~ 100 mcg daily during ). She delivered her second baby around mid August 2024 She reports episodic low BP and dizziness. Other symptoms listed in ROS Neck pressure symptoms. No H/O exposure to ionizing radiation to the head and neck. No H/O Thyroid cancer in one or more first degree relatives. No H/O Prior Thyroid surgery. No Review of Systems Constitutional: Positive for fatigue. Negative for night sweats and recent unintentional weight change. HENT: Negative for trouble swallowing, postnasal drip and thyroid pain (lower neck). Eyes: Positive for visual disturbance. Respiratory: Negative for difficulty breathing. Cardiovascular: Negative for chest pain, leg swelling and claudication. Gastrointestinal: Positive for constipation. Negative for heartburn, nausea, vomiting, abdominal pain and diarrhea. Genitourinary: Positive for irregular menses. Negative for urgency, frequent urination, slower stream, menstruating and amenorrhea. Musculoskeletal: Positive for myalgias. Negative for muscle weakness and bone pain. Skin: Positive for skin color changes. Neurological: Positive for dizziness and headaches. Negative for numbness. Endo/Heme/Allergies: Positive for flushing. Negative for polydipsia, cold intolerance when others are comfortable, heat intolerance when others are comfortable, hot flashes and changes in body hair. Answers submitted by the patient for this visit: Endocrine Review of Systems (Submitted on 02/05/2025) Fatigue: Yes Night sweats: No Recent unintentional weight change: No Skin Color Changes: Yes Post-Nasal Drip: No Thyroid Pain (lower neck): No Trouble Swallowing: No Vision Disturbance: Yes Chest pain: No Leg Swelling: No Blood Clots?: No Leg Pain while walking?: No Difficulty Breathing?: No Heartburn: No Nausea: No Vomiting: No Diarrhea: No Constipation: Yes Abdominal pain: No Bone Pain?: No Muscle aches: Yes Muscle weakness: No Joint pain or stiffness: Yes Headaches: Yes Dizziness: Yes Numbness?: No Urgency to Urinate?: No Increased Urination: No Slow or Small Urine Stream?: No Are your menstrual cycles regular?: No Are your menstrual cycles irregular?: Yes Have your menstrual cycles stopped?: No Flushing: Yes Hot Flashes?: No Increased Thirst: No Change in Body Hair?: No Cold Intolerance: No Heat Intolerance: No PAST MEDICAL HISTORY Diagnosis Date Unspecified asthma(493.90) Social History: Social History Tobacco Use Smoking status: Never Passive exposure: Yes FAMILY HISTORY Problem Relation Age of Onset [...] Arthritis Father in blood . was at [facility] when baby thought to be related to neuro problems. Current Outpatient Medications Medication Sig levothyroxine (SYNTHROID) 50 mcg tablet TAKE 1 TABLET BY MOUTH ONCE DAILY IN THE MORNING BEFORE MEAL(S) PNV#75-Iron Yiq-WB-[id number]-DHA-EPA (ONE DAILY ) 28-800-440 mg-mcg-mg cmpk Take 1 tablet by mouth once daily. levothyroxine (SYNTHROID) 25 mcg tablet Take 1 tablet by mouth once daily. BIOTIN ORAL Take by mouth q 24 HR. calcium carb/magnesium carb (CALCIUM & MAGNESIUM CARBONATES ORAL) Calcium & Magnesium Carbonates 1000MG and 500MG - one capsule daily, OTC Active IODINE ORAL Iodine 225MCG capsule daily, OTC Active MULTI-VITAMIN ORAL Multivitamin OTC, daily Active vit no.124/iron/folic ( VITAMIN ORAL) Vitamins OTC, daily Active Lactobacillus acidophilus (PROBIOTIC ORAL) Probiotic OTC, daily Active No current facility-administered medications for this visit. Physical Exam BP 111/59 (BP Site: Right Arm, BP Position: Sitting, BP Cuff Size: Large Adult) Pulse 66 Ht 159.5 cm (5' 2.8 ) Wt 84 kg (185 lb 3 oz) LMP 04/21/2015 SpO2 100% BMI 33.02 kg/m Body mass index is 33.02 kg/m . APPEARANCE: Well appearing, alert, in no acute distress, well-hydrated, well nourished. EYES extra occular movements normal, no thyroid eye signs NECK Supple, no adenopathy. THYROID No goiter RESP: normal unlabored breathing NEURO Awake, alert and oriented x 3 and No involuntary motions. 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 Increase dose to 75 mcg if TSH goes above 4 THYROID STIMULATING HORMONE, T4 FREE/FREE THYROXINE (I95.9) Hypotension, unspecified hypotension type Comment: low clinical suspicion for adrenal dysfunction or underlying endocrine disorder. Plan: COMPREHENSIVE METABOLIC PANEL, AM CORTISOL, SERUM,ACTH BLD Follow up PRN Martina Rodriguez MD, PhD Last 4 Encounter BP Readings: Date: BP: 02/12/2025 111/59 03/08/2023 116/76 10/18/2016 115/78 08/01/2015 100/80 Last 4 Encounter Wt Readings: Date: Wt: 02/12/2025 84 kg (185 lb 3 oz) 03/08/2023 83.9 kg (185 lb) 10/18/2016 71 kg (156 lb 9.6 oz) (91%, Z= 1.33)* 08/01/2015 68.5 kg (151 lb) (91%, Z= 1.33)* documented in this encounter [facility] 02-12-2025 Note HNO ID: [id number] Author: ISABEL NORWOOD MA Service: ? Author Type: General Doc Type: Progress Notes Filed: 02/12/2025 12:52 Note Text: Last 4 Encounter BP Readings: Date: BP: 02/12/2025 111/59 03/08/2023 116/76 10/18/2016 115/78 08/01/2015 100/80 Last 4 Encounter Wt Readings: Date: Wt: 02/12/2025 84 kg (185 lb 3 oz) 03/08/2023 83.9 kg (185 lb) 10/18/2016 71 kg (156 lb 9.6 oz) (91%, Z= 1.33)* 08/01/2015 68.5 kg (151 lb) (91%, Z= 1.33)* [facility] 01-02-2025 History of Present illness Narrative Reason for Appointment: Patient ID: Emmy Dale is a 24 y.o. female who presents for Contraception Patient presents today for String Check Follow Up appointment. MEDICATIONS Current Outpatient Medications Medication Instructions levothyroxine (SYNTHROID) 50 mcg, Oral, Daily before breakfast magnesium oxide (MAG-OX) 400 mg, Oral, Daily Djduunpb-Rvb-Lw-FA ( 1 + IRON PO) ALLERGIES Allergies Allergen Reactions Sulfa Antibiotics Hives and Rash Other Reaction(s): Unknown Other Reaction(s): Rash Other Reaction(s): hives PROBLEMS Active Ambulatory Problems Diagnosis Date Noted JEFF (amniotic fluid index) borderline low 07/05/2024 Resolved Ambulatory Problems Diagnosis Date Noted 27 weeks gestation of 07/05/2024 Past Medical History: Diagnosis Date Asthma (CMS/HCC) As a child Annette's disease (CMS/HCC) Hypertension (CMS/HCC) Gestational Hypothyroidism (CMS/HCC) 12/2020 Urinary tract infection As a teen HISTORY PAST MEDICAL HISTORY SOCIAL HISTORY Past Medical History: Diagnosis Date Asthma (CMS/HCC) As a child Annette's disease (CMS/HCC) Hypertension (CMS/HCC) Gestational Hypothyroidism (CMS/HCC) [...] nursing note reviewed. Exam conducted with a data mining analyst present. Vitals: There is no height or weight on file to calculate BMI. BP: 102/74 No LMP recorded (lmp unknown). ASSESSMENT & PLAN ICD-10-CM 1. Encounter for routine checking of intrauterine contraceptive device (IUD) Z30.431 Presents for follow up 1 month after Mirena insertion. She has continued with mild spotting. No complaints of pain or discomfort. Discussed 3 month wait and typically spotting will resolve. Strings are visible on pelvic exam today. She will follow up with us if spotting does not resolve and will schedule her annual pelvic/ Pap exam 04/24. Documented by Marina Kelly NP on behalf of: Dami Canseco DO documented in this encounter [facility] 12-05-2024 History of Present illness Narrative Associated Order(s): IUD Insertion Pre-Procedure Diagnose(s): Encounter for IUD insertion Post-Procedure Diagnose(s): Encounter for IUD insertion Reason for Appointment: Patient ID: Emmy Dale is a 24 y.o. female who presents for Contraception (Pt is present today for Mirena insertion ) Patient presents today for a IUD Insertion appointment. MEDICATIONS Current Outpatient Medications Medication Instructions levothyroxine (SYNTHROID) 50 mcg, Oral, Daily before breakfast magnesium oxide (MAG-OX) 400 mg, Oral, Daily Hpacmsja-Sfw-Hx-FA ( 1 + IRON PO) ALLERGIES Allergies Allergen Reactions Sulfa Antibiotics Hives and Rash Other Reaction(s): Unknown Other Reaction(s): Rash Other Reaction(s): hives SURGICAL HISTORY No past surgical history on [...] nursing note reviewed. Exam conducted with a data mining analyst present. Vitals: There is no height or weight on file to calculate BMI. BP: No LMP recorded. ASSESSMENT & PLAN Assessment/Plan Encounter Diagnosis: ICD-10-CM 1. Encounter for IUD insertion Z30.430 POCT , urine manually resulted IUD Insertion IUD Insertion Performed by: Dami Canseco DO Authorized by: Dami Canseco DO Procedure: IUD insertion Consent obtained by patient, parent, or legal power of legal writing professor - including discussion of procedure risks and benefits, patient questions answered, and patient education provided: yes risk: reasonably certain the patient is not Date/Time of Insertion: 12/05/2024 4:33 PM Speculum placed in vagina: yes Cervix cleaned and prepped: yes Tenaculum/Allis/Ring Forceps applied to cervix: yes IUD inserted without complications: yes OSM: 52 mg Levonorgestrel 20 MCG/DAY Patient tolerated procedure well: yes Intended removal date: 5 years Insertion comments: IUD Insertion: Patient presents today for an IUD Insertion. Patient is having a Mirena placed and written consent was obtained. Patient was placed in the dorsal lithotomy position with feet in stirrups. A sterile speculum ws placed into the vagina and the cervix was visualized. Cervix was cleansed with betadine and the anterior lip was grasped with ring forceps. Uterus was then gently sounded. New IUD device was gently advanced through the endocervix, toward te uterine fundus. The IUD was then deployed as device was gently removed from the uterus. The IUD strings were cut to the length from external os. All instruments were removed from the vagina. Post-procedure instructions given. All of patients questions were answered and she expressed understanding. Advised to call interim with any questions or concerns. Follow Up: Patient is to return to the office in 4 weeks for a string check. IUD Insertion: Patient presents today for an IUD Insertion. Patient is having a Mirena placed and written consent was obtained. Patient was placed in the dorsal lithotomy position with feet in stirrups. A sterile speculum ws placed into the vagina and the cervix was visualized. Cervix was cleansed with betadine and the anterior lip was grasped with ring forceps. Uterus was then gently sounded. New IUD device was gently advanced through the endocervix, toward te uterine fundus. The IUD was then deployed as device was gently removed from the uterus. The IUD strings were cut to the length from external os. All instruments were removed from the vagina. Post-procedure instructions given. All of patients questions were answered and she expressed understanding. Advised to call interim with any questions or concerns. Follow Up: Patient is to return to the office in 4 weeks for a string check. Documented by Mar Ortega LPN-scribe on behalf of: Dami Canseco DO documented in this encounter [facility] 11-05-2024 History of Present illness Narrative Reason for Appointment: Patient ID: Emmy Dale is a 23 y.o. female who presents for Follow-up (6 week pp) Patient presents today for Post Follow Up appointment. MEDICATIONS Current Outpatient Medications Medication Instructions levothyroxine (SYNTHROID) 50 mcg, Oral, Daily before breakfast magnesium oxide (MAG-OX) 400 mg, Oral, Daily Ilhoczvs-Suf-Eq-FA ( 1 + IRON PO) ALLERGIES Allergies Allergen Reactions Sulfa Antibiotics Hives and Rash Other Reaction(s): Unknown Other Reaction(s): Rash PROBLEMS Active Ambulatory Problems Diagnosis Date Noted JEFF (amniotic fluid index) borderline low 07/05/2024 27 weeks gestation of 07/05/2024 Resolved Ambulatory Problems Diagnosis Date Noted No Resolved Ambulatory Problems Past Medical History: Diagnosis Date Asthma (CMS/HCC) As a child Annette's disease (CMS/HCC) Hypertension (CMS/HCC) Gestational Hypothyroidism (CMS/HCC) 12/2020 Urinary tract infection As a teen HISTORY PAST MEDICAL HISTORY SOCIAL HISTORY Past Medical History: Diagnosis Date Asthma (CMS/HCC) As a child Annette's disease (CMS/HCC) Hypertension (CMS/HCC) Gestational Hypothyroidism (CMS/HCC) [...] weight on file to calculate BMI. BP: 104/70 Patient's last menstrual period was 12/23/2023. ASSESSMENT & PLAN ICD-10-CM 1. 6 weeks follow-up Z39.2 TSH 2. Thyroid disease (CMS/HCC) E07.9 TSH Post Follow Up: Patient is doing well and has no complaints at this time. Patient presents today for 6 week visit. Patient is s/p Vaginal delivery. Patient states depression but denies suicidal and homicidal ideations. All options were discussed with the patient regarding control and patient desires none at this time. Follow Up: Patient is to return for annual unless needed otherwise. Documented by Marina Kelly NP on behalf of: Dami Canseco DO documented in this encounter [facility] 09-10-2024 History of Present illness Narrative Reason for Appointment: Patient ID: [...] 4 mg, Oral, Every 6 hours PRN Xqbuakbd-Wiv-Ry-FA ( 1 + IRON PO) ALLERGIES Allergies Allergen Reactions Sulfa Antibiotics Hives and Rash Other Reaction(s): Unknown Other Reaction(s): Rash PROBLEMS Active Ambulatory Problems Diagnosis Date Noted JEFF (amniotic fluid index) borderline low 07/05/2024 27 weeks gestation of 07/05/2024 Resolved Ambulatory Problems Diagnosis Date Noted No Resolved Ambulatory Problems Past Medical History: Diagnosis Date Asthma (CMS/HCC) As a child Annette's disease (CMS/HCC) Hypertension (CMS/HCC) Gestational Hypothyroidism (CMS/HCC) 12/2020 Urinary tract infection As a teen HISTORY PAST MEDICAL HISTORY SOCIAL HISTORY Past Medical History: Diagnosis Date Asthma (CMS/HCC) As a child Annette's disease (CMS/HCC) Hypertension (CMS/HCC) Gestational Hypothyroidism (CMS/HCC) [...] nursing note reviewed. Exam conducted with a data mining analyst present. Vitals: There is no height or weight on file to calculate BMI. BP: 116/74 Patient's last menstrual period was 12/23/2023. ASSESSMENT & PLAN ICD-10-CM 1. Third trimester Z34.93 POCT urinalysis dipstick manually resulted 2. 37 weeks gestation of Z3A.37 POCT urinalysis dipstick manually resulted Patient presents today for a routine obstetrics appointment. Patient is currently 37w3d with a Estimated Date of Delivery: 09/28/24. Patient had pelvic exam performed and patient will ave IOL on 09/13/24 @4pm for Cervidil. Provider called [facility] and patient placed on schedule. Consents signed and sent to [facility]. Patient is GBS positive. Patient to return to clinic for post appointment. Documented by Rhoda Ortiz LPN on behalf of: Dami Canseco DO documented in this encounter [facility] 09-03-2024 History of Present illness Narrative Reason for Appointment: Patient ID: [...] 4 mg, Oral, Every 6 hours PRN Ajiewvki-Lgb-Ya-FA ( 1 + IRON PO) ALLERGIES Allergies Allergen Reactions Sulfa Antibiotics Hives and Rash Other Reaction(s): Unknown Other Reaction(s): Rash PROBLEMS Active Ambulatory Problems Diagnosis Date Noted JEFF (amniotic fluid index) borderline low 07/05/2024 27 weeks gestation of 07/05/2024 Resolved Ambulatory Problems Diagnosis Date Noted No Resolved Ambulatory Problems Past Medical History: Diagnosis Date Asthma (CMS/HCC) As a child Annette's disease (CMS/HCC) Hypertension (CMS/HCC) Gestational Hypothyroidism (CMS/HCC) 12/2020 Urinary tract infection As a teen HISTORY PAST MEDICAL HISTORY SOCIAL HISTORY Past Medical History: Diagnosis Date Asthma (CMS/HCC) As a child Annette's disease (CMS/HCC) Hypertension (CMS/HCC) Gestational Hypothyroidism (CMS/HCC) [...] nursing note reviewed. Exam conducted with a data mining analyst present. Vitals: There is no height or [...] Canseco DO documented in this encounter [facility] 08-27-2024 History of Present illness Narrative Reason for Appointment: Patient ID: [...] 4 mg, Oral, Every 6 hours PRN Opiwiehz-Oly-Wv-FA ( 1 + IRON PO) ALLERGIES Allergies Allergen Reactions Sulfa Antibiotics Hives and Rash Other Reaction(s): Unknown Other Reaction(s): Rash PROBLEMS Active Ambulatory Problems Diagnosis Date Noted JEFF (amniotic fluid index) borderline low 07/05/2024 27 weeks gestation of 07/05/2024 Resolved Ambulatory Problems Diagnosis Date Noted No Resolved Ambulatory Problems Past Medical History: Diagnosis Date Asthma (CMS/HCC) As a child Annette's disease (CMS/HCC) Hypertension (CMS/HCC) Gestational Hypothyroidism (CMS/HCC) 12/2020 Urinary tract infection As a teen HISTORY PAST MEDICAL HISTORY SOCIAL HISTORY Past Medical History: Diagnosis Date Asthma (CMS/HCC) As a child Annette's disease (CMS/HCC) Hypertension (CMS/HCC) Gestational Hypothyroidism (CMS/HCC) [...] nursing note reviewed. Exam conducted with a data mining analyst present. Vitals: There is no height or [...] Canseco DO documented in this encounter [facility] 08-14-2024 History of Present illness Narrative Reason for Appointment: Patient ID: [...] 4 mg, Oral, Every 6 hours PRN Waajphrs-Ous-Cn-FA ( 1 + IRON PO) ALLERGIES Allergies Allergen Reactions Sulfa Antibiotics Hives and Rash Other Reaction(s): Unknown Other Reaction(s): Rash PROBLEMS Active Ambulatory Problems Diagnosis Date Noted JEFF (amniotic fluid index) borderline low 07/05/2024 27 weeks gestation of 07/05/2024 Resolved Ambulatory Problems Diagnosis Date Noted No Resolved Ambulatory Problems Past Medical History: Diagnosis Date Asthma (CMS/HCC) As a child Annette's disease (CMS/HCC) Hypertension (CMS/HCC) Gestational Hypothyroidism (CMS/HCC) 12/2020 Urinary tract infection As a teen HISTORY PAST MEDICAL HISTORY SOCIAL HISTORY Past Medical History: Diagnosis Date Asthma (CMS/HCC) As a child Annette's disease (CMS/HCC) Hypertension (CMS/HCC) Gestational Hypothyroidism (CMS/HCC) [...] nursing note reviewed. Exam conducted with a data mining analyst present. Vitals: There is no height or [...] Canseco DO documented in this encounter [facility] 07-31-2024 History of Present illness Narrative Reason for Appointment: Patient ID: [...] 4 mg, Oral, Every 6 hours PRN Ugrsgumf-Kko-Nx-FA ( 1 + IRON PO) ALLERGIES Allergies Allergen Reactions Sulfa Antibiotics Hives and Rash Other Reaction(s): Unknown Other Reaction(s): Rash PROBLEMS Active Ambulatory Problems Diagnosis Date Noted JEFF (amniotic fluid index) borderline low 07/05/2024 27 weeks gestation of 07/05/2024 Resolved Ambulatory Problems Diagnosis Date Noted No Resolved Ambulatory Problems Past Medical History: Diagnosis Date Asthma (CMS/HCC) As a child Annette's disease (CMS/HCC) Hypertension (CMS/HCC) Gestational Hypothyroidism (CMS/HCC) 12/2020 Urinary tract infection As a teen HISTORY PAST MEDICAL HISTORY SOCIAL HISTORY Past Medical History: Diagnosis Date Asthma (CMS/HCC) As a child Annette's disease (CMS/HCC) Hypertension (CMS/HCC) Gestational Hypothyroidism (CMS/HCC) 12/2020 Urinary tract infection As a teen Social History Tobacco Use Smoking status: Never Smokeless tobacco: Never Substance Use Topics Alcohol use: Not Currently Drug use: Never FAMILY HISTORY Family History Problem Relation Name Age of Onset Hyperlipidemia Mother Scarlet Rashes / Skin problems Mother Scarlet Rheum arthritis Father Rick Heart failure Father Rikc Hyperlipidemia Father Rick Hypertension Father Rick Diabetes [...] Canseco DO documented in this encounter [facility] 07-19-2024 History of Present illness Narrative Reason for Appointment: Patient ID: Emmy Dale is a 23 y.o. female who presents for Routine Visit Patient presents today for Return OB appointment. MEDICATIONS Current Outpatient Medications Medication Instructions aspirin 81 mg, Oral, Daily RT docusate sodium (COLACE) 100 mg, Oral, Daily fiber 625 mg, Oral, Daily levothyroxine (SYNTHROID) 100 mcg, Oral, Daily before breakfast ondansetron ODT (ZOFRAN-ODT) 4 mg, Oral, Every 6 hours PRN Ytbclumx-Gey-Qv-FA ( 1 + IRON PO) ALLERGIES Allergies Allergen Reactions Sulfa Antibiotics Hives and Rash Other Reaction(s): Unknown Other Reaction(s): Rash PROBLEMS Active Ambulatory Problems Diagnosis Date Noted JEFF (amniotic fluid index) borderline low 07/05/2024 27 weeks gestation of 07/05/2024 Resolved Ambulatory Problems Diagnosis Date Noted No Resolved Ambulatory Problems Past Medical History: Diagnosis Date Asthma (CMS/HCC) As a child Annette's disease (CMS/HCC) Hypertension (CMS/HCC) Gestational Hypothyroidism (CMS/HCC) 12/2020 Urinary tract infection As a teen HISTORY PAST MEDICAL HISTORY SOCIAL HISTORY Past Medical History: Diagnosis Date Asthma (CMS/HCC) As a child Annette's disease (CMS/HCC) Hypertension (CMS/HCC) Gestational Hypothyroidism (CMS/HCC) [...] weight on file to calculate BMI. BP: 118/72 Patient's last menstrual period was 12/23/2023. ASSESSMENT & PLAN ICD-10-CM 1. JEFF (amniotic fluid index) borderline low O28.8 US biophysical profile w non stress test 2. Thyroid disease (CMS/HCC) E07.9 US biophysical profile w non stress test 3. History of pre-eclampsia Z87.59 US biophysical profile w non stress test 4. Third trimester Z34.93 POCT urinalysis dipstick manually resulted Return OB: Patient presents today for a routine obstetrics appointment. Patient is currently 30w3d . Patient states she is doing well but has complaints of being tired due to current . Patient has verbalizes frequent movement. labor precautions was discussed/given and patient was instructed to perform kick counts three times a day. Orders Placed This Encounter Procedures US biophysical profile w non stress test POCT urinalysis dipstick manually resulted Follow Up: Patient is to return to office in 2 week for routine OB appointment. Documented by NIDIA Multani on behalf of: NIDIA Multani documented in this encounter [facility] 07-05-2024 History of Present illness Narrative Reason for Appointment: Patient ID: Emmy Dale is a 23 y.o. female who presents for Routine Visit Patient presents today for Return OB appointment. MEDICATIONS Current Outpatient Medications Medication Instructions aspirin 81 mg, Oral, Daily RT docusate sodium (COLACE) 100 mg, Oral, Daily fiber 625 mg, Oral, Daily levothyroxine (SYNTHROID) 100 mcg, Oral, Daily before breakfast ondansetron ODT (ZOFRAN-ODT) 4 mg, Oral, Every 6 hours PRN Yqridyhb-Uhb-Xv-FA ( 1 + IRON PO) ALLERGIES Allergies Allergen Reactions Sulfa Antibiotics Hives and Rash Other Reaction(s): Unknown Other Reaction(s): Rash PROBLEMS Active Ambulatory Problems Diagnosis Date Noted JEFF (amniotic fluid index) borderline low 07/05/2024 27 weeks gestation of 07/05/2024 Resolved Ambulatory Problems Diagnosis Date Noted No Resolved Ambulatory Problems Past Medical History: Diagnosis Date Asthma (CMS/HCC) As a child Annette's disease (CMS/HCC) Hypertension (CMS/HCC) Gestational Hypothyroidism (CMS/HCC) 12/2020 Urinary tract infection As a teen HISTORY PAST MEDICAL HISTORY SOCIAL HISTORY Past Medical History: Diagnosis Date Asthma (CMS/HCC) As a child Annette's disease (CMS/HCC) Hypertension (CMS/HCC) Gestational Hypothyroidism (CMS/HCC) [...] nursing note reviewed. Exam conducted with a data mining analyst present. Vitals: There is no height or weight on file to calculate BMI. BP: 112/64 Patient's last menstrual period was 12/23/2023. ASSESSMENT & PLAN ICD-10-CM 1. 27 weeks gestation of Z3A.27 POCT urinalysis dipstick manually resulted 2. JEFF (amniotic fluid index) borderline low O28.8 US OB AMNIOTIC FLUID VOLUME Patient presents today for a routine obstetrics appointment. Patient is currently 27w6d with a Estimated Date of Delivery: 09/28/24. Patient to have repeat JEFF in 1 week due to Low JEFF on previous scan. Discussed that at 32 weeks gestation patient will start NST/BPP schedule. Patient voiced that she ate a low fat diet since she was having RUQ pain and symptoms improved. Patient to return to clinic in 2 weeks. Documented by Rhoda Ortiz LPN on behalf of: Dami Canseco DO documented in this encounter [facility] 06-25-2024 History of Present illness Narrative Reason for Appointment: Patient ID: Emmy Dale is a 23 y.o. female who presents for Right upper quad pain and Routine Visit Patient presents today for Return OB appointment. MEDICATIONS Current Outpatient Medications Medication Instructions aspirin 81 mg, Oral, Daily RT docusate sodium (COLACE) 100 mg, Oral, Daily fiber 625 mg, Oral, Daily guar gum powder 1 packet, Oral, Daily RT levothyroxine (SYNTHROID) 75 mcg, Oral, Daily before breakfast ondansetron ODT (ZOFRAN-ODT) 4 mg, Oral, Every 6 hours PRN Twlmuqwj-Cxv-Hy-FA ( 1 + IRON PO) ALLERGIES Allergies Allergen Reactions Sulfa Antibiotics Hives and Rash Other Reaction(s): Unknown Other Reaction(s): Rash PROBLEMS Active Ambulatory Problems Diagnosis Date Noted No Active Ambulatory Problems Resolved Ambulatory Problems Diagnosis Date Noted No Resolved Ambulatory Problems Past Medical History: Diagnosis Date Annette's disease (CMS/HCC) HISTORY PAST MEDICAL HISTORY SOCIAL HISTORY Past Medical History: Diagnosis Date Annette's disease (CMS/HCC) Social History Tobacco Use Smoking status: Not on file Smokeless tobacco: Not on file Substance Use Topics Alcohol use: Not on file Drug use: Not on file FAMILY HISTORY No family history on file. SURGICAL HISTORY No past surgical history on [...] nursing note reviewed. Exam conducted with a data mining analyst present. Vitals: There is no height or weight on file to calculate BMI. BP: 102/64 Patient's last menstrual period was 12/23/2023. ASSESSMENT & PLAN ICD-10-CM 1. Second trimester Z34.92 Urine dip 2. Right upper quadrant pain R10.11 Patient presents today for a routine obstetrics appointment. Patient is currently 26w3d with a Estimated Date of Delivery: 09/28/24. Patient voiced she started having right upper quad pain that started last . Patient voiced that she is having gallbladder pain. Patient to have low fat diet and once patient is closer to delivery then referral would be done for post treatment. Patient advised that if pain becomes severe then she is to be assessed. Documented by Rhoda Ortiz LPN on behalf of: Dami Canseco DO documented in this encounter [facility] 05-14-2024 History of Present illness Narrative [facility] Consult Note Reason For Consult: Hypothyroidism HPI: Emmy Dale is a 23 y.o. at 20w3d with Estimated Date of Delivery: 09/28/24 based on LMP=US at 8wks who presented for consultation from Dami Rivera DO regarding Chief Complaint Patient presents with Hypothyroidism I have reviewed the pertinent available patient records including but not limited to notes, labs and images She presents today with her partner. She reports that she is doing well. She reports normal movements and she denies leakage of fluid, contractions or vaginal bleeding. She denies fever, chills, nausea, vomiting, shortness of breath, chest pain, headache, blurry vision, right upper quadrant pain or edema. Complications: Hypothyrodism - on 75 mcg of synthroid. Was increased from 25 mcg. Last TSH per patient was 1.7 per patient Placenta lakes History of preeclampsia at term. No severe features, on low dose aspirin Mild scoliosis - no epidural issues Obesity BMI 33 term. Nuchal cord. Low risk cell free DNA, male Her sister has thyroid cancer Father from viral cardiomypathy Denies family history of: Learning difficulties, congenital anomalies, DVT/VTE, early-onset cancer, early-onset cardiac disease or other inherited conditions Denies smoking, alcohol or other substance use in Carrier screen: ? Through carlene but she does not remember which exactly carrier screen was done Recent hospitalization: no Review of systems: Review of systems was noncontributory OB Hx: OB History Para Term AB Living 2 1 1 1 SAB IAB Ectopic Multiple Live Births 1 # Outcome Date GA Lbr Cly[place]/2nd Weight Sex Type Anes PTL Lv 2 Current 1 Term 04/20/22 39w3d 3.175 kg F Vag-Spont PATSY PREECLAMPSIA SCREEN ([place] Preventive Services Task Force) Patient is at high risk if 1 or more factors present. Incidence of preeclampsia is ? 8%: Prior preeclampsia YES Multiple gestation NO Chronic hypertension NO Type 1 or 2 diabetes NO Renal disease NO Autoimmune disease NO (Lupus, APLS) Patient is at moderate risk is several risk factors are present: Nulliparity NO Obesity (BMI ? 30) YES Family history of preeclampsia NO (Mother, sister) NO Sociodemographic characteristics NO (AA, low socioeconomic status) Age ? 35 NO Personal history factor NO (Previous SGA, adverse outcome, > 10 years from last ) PMH: Past Medical History: Diagnosis Date Gestational hypertension Hyperthyroidism PSHIST: History reviewed. No pertinent surgical history. Allergies: Allergies Allergen Reactions Sulfa (Sulfonamide Antibiotics) Hives Meds: Prior to Admission medications Medication Sig Start Date End Date Taking? Authorizing Provider aspirin 81 mg Take 1 tablet (81 mg total) by mouth in the morning. Not In System Ref Prov docusate sodium (COLACE) 50 mg capsule Take 1 capsule (50 mg total) by mouth in the morning and 1 capsule (50 mg total) before bedtime. Not In System Ref Prov levothyroxine (SYNTHROID, LEVOTHROID) 25 MCG tablet Take 1 tablet (25 mcg total) by mouth in the morning. Not In System Ref Prov vit,lance 74/iron/folic ( VITAMIN 1+1 ORAL) Take 1 tablet by mouth in the morning. Not In System Ref Prov SH: Social History Socioeconomic History Marital status: Single Spouse name: Not on file Number of children: Not on file Years of education: Not on file Highest education level: Not on file Occupational History Not on file Tobacco Use Smoking status: Never Smokeless tobacco: Never Substance and Sexual Activity Alcohol use: Not Currently Drug use: Never Sexual activity: Yes Partners: Male Other Topics Concern Not on file Social History Narrative Not on file Social Determinants of Health Financial Resource Strain: Not on file Food Insecurity: No Food Insecurity (05/14/2024) Hunger Screening Food Insecurity - Worry: Never True Food Insecurity - Inability: Never True Transportation Needs: Not on file Physical Activity: Not on file Stress: Not on file Social Connections: Not on file Interpersonal Safety: Not on file Housing Instability: Not on file Physical Exam: Vital Signs Vitals: 05/14/24 0937 BP: 108/72 Pulse: 78 Physical Exam: Gen: Not in acute distress, alert and oriented. Eyes: Pupils equal and reactive Chest: Nonlabored breathing Cardiac: Pulse was regular on vital signs assessment Abdomen: Gravid Skin/extremities: Appears intact. No visible lesions MS:no visible edema Neuro: No focal deficits Notes/Imaging/Labs reviewed Ultrasound findings Pertinent Ultrasound findings are see report Assessment/Plan 23 y.o. @ at 20w3d with Estimated Date of Delivery: 09/28/24 here for consultation regardin. 20 weeks gestation of - Thyroid profile includes TSH FT4; Future 2. Hypothyroidism affecting in second trimester - Thyroid profile includes TSH FT4; Future In regards to her hypothyroidism, although profound hypothyroidism is associated with an increase in numerous complications including miscarriage, premature delivery, placental abrutpion, preeclampsia, growth restriction, and neuro psychological and cognitive impairments, these risks are quite avoidable with routine replacement to a euthyroid state. She should have regular screening over the balance of her (typically every 4-6 weeks) with adjustments in her medication dose to maintain a euthyroid state. Specifically you should attempt to maintain TSH values less than 2.5 mU/L. After delivery, the dose of the thyroxine should be reduced to pre- levels and TSH measured 6 to 8 weeks later. Annette thyroiditis (i.e. chronic lymphocytic thyroiditis) is an autoimmune disease that is the most common cause of hypothyroidism. Affects 8-10% of women of reproductive age. It is characterized by the presence of antithyroid antibodies. Patients may also have a goiter. Tites of anithyroglobulin are elevated in 50-70% of patients and almost all have antithyroid peroxidase antibodies. Medications such as aluminium hydroxide, cholestyramine, and most importantly ferrous sulfate can interfere with the intestinal absorption of thyroxine. Patient should be advised to space medications appropriately. 3. History of pre-eclampsia in prior , currently Pre-eclampsia is estimated to occur in approximately 4% of pregnancies that extend beyond the first trimester. Recurrence risk is influenced by co-morbid health conditions and severity at prior diagnosis. It is estimated that in women with prior pre-eclampsia, risk of hypertensive disorder in subsequent is around 50%. Similarly, women with a history of eclampsia have a 50% risk of hypertensive disorder in subsequent , but only a 5% risk of recurrent eclampsia. Earlier gestational age at diagnosis also increases risk of recurrence. Women with pre-eclampsia after 37 weeks have an estimated 14% risk of developing pre-eclampsia in the subsequent . Diagnosis prior to 28 weeks gestation increases risk of recurrence to about 37%.Overall, it is generally believed that if the condition does recur, most cases are less severe. However, even in the absence of disease recurrence, women with prior pre-eclampsia have more than doubled risks of stillbirth, abruption, SGA and delivery in subsequent pregnancies. Also patietns are at increased risk for long-term cardiovascular and cerebrovascular complications. The patient will be a candidate for low-dose aspirin for preeclampsia prevention starting at 12 weeks' gestation until delivery. Baseline preeclampsia labs including CBC CMP and protein creatinine ratio/24 hour urine protein is recommended. Data does not support routine calcium supplementation for healthy, nulliparous women to prevent preeclampsia. There may be a benefit for preeclampsia prevention in high-risk populations or in those consuming a low calcium diet. Additionally, data does not support vitamin C and E supplementation, fish oil, or salt rescriction to prevent preeclampsia. 4. Placental abnormality in second trimester Placental lakes are enlarged spaces in the placenta filled with maternal blood. These spaces are also called intervillous spaces because they are found between the placental villi the finger-like projections of the placenta that contain blood vessels . The placental villi float in the intervillous spaces and absorb oxygen and nutrients from the maternal blood. The blood-filled placental lakes appear nearly black (white arrows) on ultrasound because they do not reflect soundwaves back to the ultrasound machine. Placental lakes can be seen within the placenta or on the surface of the placenta bulging into the amniotic cavity. Slow swirling blood flow (larger arrow) may be seen within the spaces, and the shape of the spaces tends to change with uterine contractions. These features may help to distinguish a placental lakes from a thrombus. Placental lakes are considered to be a normal finding in most cases. However, multiple placental lakes seen early in have been associated with growth restriction. Reviewed aneuploidy testing that could be performed during . I explained that definitive testing can be obtained by an amniocentesis, which has a 1/800 risk of loss. Limitations of cell free DNA reviewed the patient declined. Carrier screen reviewed. She tells me that she thinks she has had a carrier screen in the past with a thorough she was not able to locate the records for me. Declines carrier screen for now and desires to further address with her OB Recommendations: Please obtain CMP and baseline protein creatinine ratio or 24 hour urine protein if not done Cont low dose aspirin for preeclampsia prophylaxis Check thyroid function every 4-6 weeks goal of TSH less than 2.5 mU/L. After delivery patient should go to the prepregnancy dose of the Synthroid and her thyroid function she will be rechecked about 6-8 weeks following delivery. To be done through primary OB office To return in 4-6 weeks for anatomy completion Serial growth assessments every 4 weeks after the anatomy scan through OB office testing to be initiated at 32 weeks weekly NST/DVP due to history of hypothyroidism on meds, history of preeclampsia, placeta lakes and obesity through OB office Delivery recommended at or after 39 weeks, earlier as clinically indicated Vaginal delivery preferred reserved section for routine indications Location of delivery: local [facility] At risk for diabetes candidate for early Glucola screen if not done Plan reviewed with patient. She vocalized understanding all questions answered. The patient is to continue with routine care in your office Thank you for allowing me to participate in her care. Please contact me if you have any concerns. Shirley Farias MD, FACOG (she/hers) Maternal- Medicine [facility] [address] [place] [address] This document was created with [employer] technology. Though I make every effort to review the dictation as it is transcribed, on occasion the spoken word can be misinterpreted by the technology leading to inappropriate words, phrases, or sentences. This note is addressed to the requesting provider as a consultation for clinical guidance. Specific medical abbreviations are occasionally used and those are generally approved by the [place]?Board of?Obstetrics and?Gynecology?as well as?Heidy s abbreviations. The above plan of care was based solely on the diagnoses for which a consultation was requested. ?More frequent testing may be indicated based on her other medical/obstetrical conditions. The management of other or medical conditions is beyond the scope of requested consultation and will continue to be followed by the primary developer relations manager or primary care provider. Note to patient: The Century Cures Act makes medical notes like these available to patients in the interest of transparency. However, be advised this is a medical document. It is intended as peer to peer communication. It is written in medical language and may contain abbreviations or verbiage that are unfamiliar. It may appear blunt or direct. Medical documents are intended to carry relevant information, facts as evident, and the clinical opinion of the practitioner. Headache/epigastric pain/blurry vision/swelling? Headaches Cramping/contractions? No Abnormal vaginal discharge? No Spotting/vaginal bleeding? No Loss of fluid like your water may have broken? No Cats in the home? Yes Do you change the litter box? No Flu vaccine? No Genetic testing done this here or other office? yes, male low risk Have you been seen here at [facility] in a previous ? No Recent ER visits or hospitalizations? No Bring blood sugar log or meter with you today? (Please bring them with you for every visit at [facility]) no Traveled outside the country in the past 6 month no Any concerns that you would like me to mention to the provider today? No documented in this encounter [facility] 09-15-2023 Evaluation note Encounter Date Diagnosis Assessment [...] in office today for physical therapy to [facility]. Discussed continuation of jgvs-nwe-txwyaka medications as needed. Take muscle relaxer as [...] in office today for physical therapy to [facility] through [facility]. Discussed continuation of nefd-ybp-aqivcxw medications as needed. Take muscle relaxer as directed. Do not drink with alcohol or use with other recreational drugs. May cause severe drowsiness. Do not operate a motor vehicle until you know how this medication will effect you. 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 [employer] Other 09-12-2023 Evaluation note* Encounter Date Diagnosis [...] that were not corrected during review process. [employer] Other 07-26-2023 Evaluation note* Encounter Date Diagnosis [...] that were not corrected during review process. [employer] Other 06-18-2023 NoteEchocardiology Procedure Exam Date/Time Accession # Ordering ECG Stress Exercise 04/15/2023 08:43 EDT [id number] Benjamin Baker MD CPT code 62997 Reason for Exam (ECG Stress Exercise) I95.1;Dizziness [...] Benjamin Baker MD Transcribed by: jamie Technologist: [facility]06-16-2023 Note Echocardiology Procedure Exam Date/Time Accession # Ordering Echo Transthoracic 04/15/2023 09:42 EDT [id number] Benjamin Baker MD Complete CPT code 40663 66585 Reason for Exam (Echo Transthoracic Complete) I95.9;[place] [address] Adult Echocardiogram Report Name: ANNE MARIECHRISTINAEMMY POLLOCK Tristen Study Date: 04/15/2023 09:02 AM BP: 105/71 mmHg Patient [place] [facility] [place]: 75 : 2000 Gender: Female Height: 63 in Age: 22 yrs Ethnicity: WHT Weight: 178 lb Reason For Study: Hypotension BSA: 1.8 m2 History: No cardiac history per patient Ordering Physician: Samuel^Benjamin^J Referring Physician: Benjamin Baker Performed By: Jonelle Alvarez, MARKEL Interpretation Summary Ejection Fraction = 60-65%. The [...] Signed by: Benjamin Baker MD Transcribed by: Briana Technologist: [facility]05-09-2023 History of Present illness Narrative* Martina Rodriguez MD, PhD - 03/08/2023 4:20 PM EDT Ms. Dale is here today at the request of Lyndon Wyatt CNP for my opinion regarding thyroid problem. My final recommendation will be communicated back to the requesting physician by way of shared medical record or letter. Reason for visit: Annette's disease. Abnormal thyroid function test. Radiological imaging with contrast dyes within last 3 months? no HPI: Emmy Dale is a 22 year old female who is presenting today for evaluation and management of a Thyroid problem. She was diagnosed with Annette's disease about 2 years ago. She was [...] Arthritis Father in blood . was at [facility] when baby thought to be related to neuro problems. Family Hx: half sister had h/o thyroid CA and Annette's Current Outpatient Medications Medication Sig BIOTIN ORAL [...] rashes or lesions Impression and Recommendations: (E06.3) Annette's thyroiditis (primary encounter diagnosis) Comment: intermittent thyroid dysfunction Plan: Will monitor thyroid function for now. No thyroid hormone therapy at this time. 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 [...] I would recommend referral to a different sand slinger. Patient does have the name of an sand slinger that she would like referred to. We will put that referral in today. Dr. Roger Kim - [facility], [facility] February, Dizziness (ICD-10 - R42) Discussed her [...] that were not corrected during review process. 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 Jul, spinal headache (ICD-10 - O89.4) Patient has substantial concerns over possible spinal headaches and needing blood patch. If she does not want to go to ER, I highly recommend she call CTO the second she leaves our office to follow-up.She needs to let them know about her concerns.I explained to her that even though she may assume that her CTO will not listen her , I still want her to reach out to that office and explained to them her current concerns. She wants to know what the immediate treatment would be and work-up for spinal headache and possible leak however I cannot provide her with this information as I am not CTO. Jul, Hip pain (ICD-10 - M25.559) While [...] I did discuss with her concerns over hixv-lan-fcfmzgi medications during breast-feeding. Discussed recommendations currently and please bring this up to CTO as well for further recommendations. Does not [...] I would like her to follow-up with CTO or go to ER regarding this dizziness and we can follow-up in office after. If nothing comes from an CTO/spinal headache/spinal leak standpoint, we can order CT [...] that were not corrected during review process. [place] [employer] Other 11-10-2009 History of Past illness Narrative* Problem Noted Date Resolved Date Constipation 09/09/2009 08/28/2014 documented as of this encounter (statuses as of 03/09/2023) [facility]11-10-2009 History of Past illness Narrative* Problem Noted Date Diagnosed Date Resolved Date Constipation 09/09/2009 08/28/2014 documented as of this encounter (statuses as of 08/09/2023) [facility] noteNo InformationNort [employer] Other Evaluation note* Diagnosis Annette's thyroiditis- Primary Chronic lymphocytic thyroiditis documented in this encounter [facility] noteNo assessment information availableGre[facility] Work Phone: Evaluation note* Diagnosis Annette's thyroiditis- Primary Chronic lymphocytic thyroiditis documented in [facility]* Diagnosis 31 weeks gestation of Third trimester state, incidental [facility] Diagnosis 33 weeks gestation of Third trimester state, incidental [facility]* Diagnosis Third trimester state, incidental 35 weeks gestation of [facility]* Diagnosis 36 weeks gestation of Third trimester state, incidental [facility]* Diagnosis Third trimester state, incidental 37 weeks gestation of [facility]* Diagnosis Second trimester state, incidental Right upper quadrant pain Abdominal pain, right upper quadrant Low blood potassium Hypopotassemia Thyroid disease (CMS/HCC) Unspecified disorder of thyroid Hypothyroidism (acquired) (CMS/HCC) Unspecified hypothyroidism Annette's disease (CMS/HCC) Chronic lymphocytic thyroiditis documented in this encounter [facility]* Diagnosis 27 weeks gestation of JEFF (amniotic fluid index) borderline low Nonspecific abnormal finding in amniotic fluid documented in this encounter [facility]* Diagnosis JEFF (amniotic fluid index) borderline low Nonspecific abnormal finding in amniotic fluid Thyroid disease (CMS/HCC) Unspecified disorder of thyroid History of pre-eclampsia Third trimester state, incidental documented in this encounter [facility]* Diagnosis 6 weeks follow-up Thyroid disease (CMS/HCC) Unspecified disorder of thyroid documented in this encounter [facility]* Diagnosis Encounter for IUD insertion Insertion of intrauterine contraceptive device documented in this encounter [facility]* Diagnosis Hypothyroidism affecting in second trimester- Primary documented [facility]* Diagnosis 20 weeks gestation of - Primary Hypothyroidism affecting in second trimester History of pre-eclampsia in prior , currently with other poor obstetric history Placental abnormality in second trimester documented in [facility] encounter [facility]* Diagnosis Encounter for routine checking of intrauterine contraceptive device (IUD) documented in this encounter [facility]* Diagnosis Hypothyroidism due to Annette's thyroiditis- Primary Hypotension, unspecified hypotension type [facility] Diagnosis Hypotension, unspecified hypotension type Dizziness of unknown cause Near syncope documented in this encounter [facility] [place] general Narrative - Reported* Type Description Date Medical History Asthma Medical History Vasovagal syndrome- childhood (r esolved) Medical History Exercise-induced asthma Medical History Pityriasis rosea Medical History Tachycardia Medical History Annette's thyroiditis Medical History Pre-eclampsia Surgical History Pollock teeth extract 2017 Surgical History Vaginal childbirth 03/2022 Hospitalization History See surgical hx [employer] Other History general Narrative - Reported* Type Description Date Medical History Exercise-induced asthma Medical History Pityriasis rosea Medical History Tachycardia Medical History Annette's thyroiditis Medical History Asthma Medical History Pre-eclampsia Medical History Hypotension Surgical History Pollock teeth extract 2017 Surgical History Vaginal childbirth 03/2022 Hospitalization History See surgical hx [employer] Other History general Narrative - Reported* Type Description Date Medical History Exercise-induced asthma Medical History Pityriasis rosea Medical History Tachycardia Medical History Annette's thyroiditis Medical History Asthma Medical History Pre-eclampsia Medical History Hypotension Medical History GERD (gastroesophageal reflux di sease) Surgical History Pollock teeth extract 2017 Surgical History Vaginal childbirth 03/2022 Surgical History EGD/colonoscopy 2012 Hospitalization History See surgical hx [employer] Other History general Narrative - Reported* Type Description Date Medical History Exercise-induced asthma Medical History Pityriasis rosea Medical History Tachycardia Medical History Annette's thyroiditis Medical History Asthma Medical History Pre-eclampsia Medical History Hypotension Medical History GERD (gastroesophageal reflux di sease) Medical History Thyromegaly Surgical History Pollock teeth extract 2016 Surgical History Vaginal childbirth 03/2022 Surgical History EGD/colonoscopy 2011 Hospitalization History See surgical hx [employer] Other Hisjkic general Narrative - Reported* Type Description Date Medical History Exercise-induced asthma Medical History Pityriasis rosea Medical History Tachycardia Medical History Annette's thyroiditis Medical History Asthma Medical History Pre-eclampsia Medical History Hypotension Medical History GERD (gastroesophageal reflux di sease) Medical History Thyromegaly Medical History Other idiopathic scoliosis, thor acic region Surgical History Pollock teeth extract 2016 Surgical History Vaginal childbirth 03/2022 Surgical History EGD/colonoscopy 2011 Hospitalization History See surgical hx [employer] Other InstructionsNot on filedocumented in this encounter [facility] filedocumented in this encounter [facility]* Attachments The following attachments cannot be sent through Care Everywhere. * Preeclampsia ([place]) [facility] Summary Purpose Family History No Family History [...] No January 06 2:42pm Reason for Referral Specialty Diagnoses / Procedures Referred By Contmaryam t Referred To Contact Maternal and Medicine Diagnoses Hypothyroidism affecting in second trimester Procedures US MFM with or without consult Shirley Farias MD [address] [place] [address] [facility] Maternal Med [address] [place] [address] Referral ID Status Reason Start Date Expiration Date V isits Requested Visits Authorized [id number] Pending Review 05/14/2024 05/14/2025 1 1 Reason *Waiting for appt GI , possible ulcer Diagnosis 1 Other acute gastriti s with hemorrhage (K29.01) Referral Organization [facility] Book Buybackphill banegas [place] Referring Provider First Name Lyndon Referring Provider Last Name [facility] Referring Provider Specialty Nurse Pract itteor Referred Organization [facility] Gastroenterolo gy Referred Provider Patricio Urena Referred Address [address],[address] Referred Provider Specialty Gastroentero logy Referral Priority Routine General Notes Misti Vivas 023 10:08:56 AM >Received today. [facility] request us to fill out their form and fax to them. They will review the referral and call patient to schedule them. Referral was fax. Misti Vivas 07/12/2023 01:31:38 PM >Per telephone encounter, patient wants to try [facility] Gastro doctors. Sent P2P Reason *FU 03/08 Dr. 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 They will review and call patient to schedule Reason *FU 03/08 Dizzines s- TERRENCE; Please send this note with 2 previous notes Diagnosis 1 Dizziness (R42) Referral Organization [facility] Family Escalante makenzie [place] Referring Provider First Name Lyndon Referring Provider Last Name Yoselin Referring Provider Specialty Nurse Alfred barron Referred Organization [facility] Referred Provider Jose Dominguez Referred Address [address] [place], [place],[address] Referred Provider Specialty Neurology Referral Priority Routine [...] section and content) DATE CREATED AUTHOR 08/06/2022 [facility] DATE CREATED AUTHOR AUTHOR'S ORGANIZ ATION 04/06/2024 [facility] DATE CREATED AUTHOR AUTHOR'S ORGANIZ ATION 05/03/2024 [facility] DATE CREATED AUTHOR AUTHOR'S ORGANIZ ATION 05/18/2024 [facility] DATE CREATED AUTHOR AUTHOR'S ORGANIZ ATION 06/14/2024 [facility] DATE CREATED AUTHOR AUTHOR'S ORGANIZ ATION 06/26/2024 [facility] DATE CREATED AUTHOR AUTHOR'S ORGANIZ ATION 07/07/2024 [facility] DATE CREATED AUTHOR AUTHOR'S ORGANIZ ATION 07/24/2024 [facility] DATE CREATED AUTHOR AUTHOR'S ORGANIZ ATION 11/19/2024 [facility] DATE CREATED AUTHOR AUTHOR'S ORGANIZ ATION 11/30/2024 [facility] DATE CREATED AUTHOR AUTHOR'S ORGANIZ ATION 01/26/2025 [facility] DATE CREATED AUTHOR AUTHOR'S ORGANIZ ATION 02/13/2025 [facility] DATE CREATED AUTHOR AUTHOR'S ORGANIZ ATION 02/22/2025 [facility] DATE CREATED AUTHOR AUTHOR'S ORGANIZ ATION 03/18/2025 [facility] DATE CREATED AUTHOR AUTHOR'S TOBI VICTOR 04/04/2025 [facility] REASON FOR VISIT (unrecogniz ed section and content) Reason Comments New Patient Reason Comments Routine Visit Reason Comments Right upper quad pain Routine Visit Reason Comments Follow-up 6 week pp Reason Comments Contraception Pt is present today for Mirena insertion Reason Comments Hypothyroidism Reason Comments Contraception Reason Comments Annette's thyroiditis Reason Comments Hypertension Pt present today due to having blood pressure issues along w/dizziness after giving . Pt delivered on 09/14/2024. Source Comments (unrecognize d section and content) In the event this informatio n is protected by the Federal Confidentiality of Alcohol and Drug Abuse Patient Records regulations: The Federal rules restrict any use of the information to criminally investigate or prosecute any alcohol or drug abuse patient.[facility] the event this information is protected by the Federal Confidentiality of Alcohol and Drug Abuse Patient Records regulations: The Federal rules restrict any use of the information to criminally investigate or prosecute any alcohol or drug abuse patient.[facility] the event this information is protected by the Federal Confidentiality of Alcohol and Drug Abuse Patient Records regulations: The Federal rules restrict any use of the information to criminally investigate or prosecute any alcohol or drug abuse patient.[facility] Teams (unrecognized sec tion and content) Rouge Miller Relationship Specialty Start Date End Date Lyndon Wyatt CNP [address] [address] PCP - General Family Medicine 03/08/23 Lyndon Wyatt CNP [address] [address] Referring Family Medicine 03/04/23 Team Status: Active Member Role Status Dates Lyndon Wyatt APRN Primary Care Provider Active Team Status: Inactive Member Role Status Dates Lyndon Wyatt APRN Primary Care Provider, Attend ing Provider Active Rouge Miller Relationship Specialty Start Date End Date Lyndon Wyatt CNP [address] [address] PCP - General Family Medicine 03/08/23 Lyndon Wyatt CNP [address] [address] Referring Family Medicine 03/04/23 Rouge Miller Relationship Specialty Start Date End Date Ge Cloud MD [address] [phone] PCP - General Family Medicine 01/25/24 Rouge Miller Relationship Specialty Start Date End Date Ge Cloud MD [address] [phone] PCP - General Family Medicine 01/25/24 Rouge Miller Relationship Specialty Start Date End Date Ge Cloud MD [address] [phone] PCP - General Family Medicine 01/25/24 Rouge Miller Relationship Specialty Start Date End Date Ge Cloud MD [address] [phone] PCP - General Family Medicine 01/25/24 Rouge Miller Relationship Specialty Start Date End Date Ge Cloud MD [address] [phone] PCP - General Family Medicine 01/25/24 Rouge Miller Relationship Specialty Start Date End Date Ge Cloud MD [address] [place] [phone] PCP - General Family Medicine 01/25/24 Rouge Miller Relationship Specialty Start Date End Date Ge Cloud MD [address] [place] [phone] PCP - General Family Medicine 01/25/24 Rouge Miller Relationship Specialty Start Date End Date Ge Cloud MD [address] [phone] PCP - General Family Medicine 01/25/24 Rouge Miller Relationship Specialty Start Date End Date Ge Cloud MD [address] [place] [phone] PCP - General Family Medicine 01/25/24 Rouge Miller Relationship Specialty Start Date End Date Ge Cloud MD [address] [phone] PCP - General Family Medicine 01/25/24 Rouge Miller Relationship Specialty Start Date End Date Lyndon Wyatt, ANKIT-PHOTOGRAPHY MANAGER [address] [address] PCP - General 05/12/24 Rouge Miller Relationship Specialty Start Date End Date Lyndon Wyatt, ANKIT-PHOTOGRAPHY MANAGER [address] [address] PCP - General 05/12/24 Rouge Miller Relationship Specialty Start Date End Date Ge Cloud MD [address] [id number] PCP - General Family Medicine 01/25/24 Rouge Miller Relationship Specialty Start Date End Date Lyndon Wyatt, PHOTOGRAPHY MANAGER [address] [address] PCP - General Family Medicine 03/08/23 Lyndon Wyatt, PHOTOGRAPHY MANAGER [address] [address] Referring Family Medicine 03/04/23 Rouge Miller Relationship Specialty Start Date End Date Ge Cloud MD PCP - General Family Medicine 01/25/24 Rouge Miller Relationship Specialty Start Date End Date Ge Cloud MD PCP - General Family Medicine 01/25/24 Rouge Miller Relationship Specialty Start Date End Date Ge Cloud MD PCP - General Family Medicine 01/25/24 Goals [...] BE BASED ON THE PRIMARY CLINICAL RECORDS. [employer] [facility]. provides no warranty or guarantee of the accuracy or completeness of information in this document.
[2025-04-22 13:09] LABS: Age Gdln ACOG Testing Note (.); IGP, rfx Aptima HPV ASCU Note (.)
== END 2025-04-17 21:06 | disposition home or self-care (01) ==
LOC: LAB 21:05
PROVIDERS: PCP Family Medicine; Visit Provider Obstetrics & Gynecology
DX: Z01.419 Encounter for gynecological examination (general) (routine) without abnormal findings (principal)
CPT/HCPCS: 88175